=== PATIENT | male | born 1955 | race Hispanic/Latino ===

== ENCOUNTER 2017-12-14 23:02 | Emergency (ER) | payer OTHER, SELFPAY ==
[2017-12-14 23:12] VITALS: BP 150/91; PULSE 102; RESP 16; TEMP 37.6; O2SAT 97; BMI 36.5
--- NOTE | 2017-12-15 02:01 | ED.ALCOHOL ---
HPI - Alcohol General Chief Complaint: Toxicology Problem Stated Complaint: GOING THRUGH ALCOHOL WITHDRAWL Time Seen by Provider: 12/14/17 23:56 History of Present Illness HPI narrative: HPI 62-year-old male presents requesting assistance with alcohol detox. Patient reports that he drank 600 ML vodka daily, mastering 11 PM, reports he is going through a stressful divorce and wishes to stop drinking. Patient previously attended local and is establishing primary care. No prior seizures with withdrawal, no clinical evidence of withdraw the present time. ROS with no recent constitutional symptoms. Exam Gen: Pleasant, nontoxic-appearing, resting comfortably. Able to walk with a steady narrow-base nonantalgic gait. HEENT: NC, AT, PEERL, EOMI. Resp: Unlabored respirations with a normal work of breathing. Card: Extremities well perfused. GI: Non-distended. : Deferred MSK: No visible deformities, strength and tone without visually appreciable deficit. Neuro: AO x 3, no facial asymmetry, vision and hearing WNL. Heme/Lymph: Deferred Skin: Normal color with no visible lesions (other than noted above). Psych: Mood and affect appropriate. MDM Previous chart, nursing note, and vitals reviewed. A: 62-year-old male presents requesting assistance with alcohol detox. Patient reports that he drank 600 ML vodka daily, mastering 11 PM, reports he is going through a stressful divorce and wishes to stop drinking. DDx & Evaluation: patient without clinical findings suggestive of comparing alcohol intoxication, low risk history with respect to prior withdraws, vital signs within acceptable limits, patient prescribed gabapentin for treatment of withdrawal symptoms, provided with outpatient follow-up resources. Return to care precautions provided. Impression: alcohol intoxication (please reference below for remainder of encounter information) Related Data Home Medications Medication Instructions Recorded Confirmed alprazolam [Xanax] #0 04/10/17 duloxetine [Cymbalta] #0 04/10/17 omeprazole #0 04/10/17 tamsulosin [Flomax] #0 04/10/17 testosterone cypionate #0 04/10/17 [Depo-Testosterone] Previous Rx's Medication Instructions Recorded gabapentin 400 mg PO TID #20 cap 12/15/17 Allergies Allergy/AdvReac Type Severity Reaction Status Date / Time hydrochlorothiazide Allergy Unknown Verified 12/14/17 23:18 [HYDROCHLOROTHIAZIDE] lisinopril [LISINOPRIL] Allergy Unknown Verified 12/14/17 23:18 PFS Social History Smoking Status: Never smoker Exam Initial Vital Signs Initial Vital Signs: Vital Signs Temperature 99.6 F 12/14/17 23:12 Pulse Rate 102 H 12/14/17 23:12 Respiratory Rate 16 12/14/17 23:12 Blood Pressure 150/91 H 12/14/17 23:12 Pulse Oximetry 97 12/14/17 23:12 Course Orders Ordered: Discontinued Medications Gabapentin (Neurontin) 400 mg PO NOW ONE Stop: 12/15/17 00:16 Last Admin: 12/15/17 01:58 Dose: Not Given Vital Signs - 8 hr 12/14/17 23:12 Temperature 99.6 F Pulse Rate 102 H Respiratory Rate 16 Blood Pressure 150/91 H Pulse Oximetry 97 Discharge Plan Departure Patient Disposition: Home, Self-Care Clinical Impression: Alcoholic intoxication Discharge Date/Time: 12/15/17 02:01 Interventions: ED Discharge Assessment Last Done: 12/15/17 01:58 Activity Restrictions/Additional Instructions: You were in seen in the [facility] Emergency Department for alcohol withdrawal treatment. You have been prescribed gabapentin to help with your alcohol withdrawal. Please follow up immediately with both a primary care physician (see below) and AA. You may also call Health system for further assistance with alcohol dependency and withdrawal. Please read and follow all of the instructions below. [address] [phone] Please follow up with your primary care physician immediately. If you have any new symptoms or if you are at all concerned about your health please return immediately to the emergency department. If you do not have a primary care physician, please contact [facility] at [phone], [facility] at [phone], or [facility] at [phone] to arrange follow up care. If you have health insurance, please also contact your insurer for a list of accepting providers under your policy, you may contact these providers for further health care. Your care today was limited to identifying and treating emergent medical problems only. Many people have subtle differences in their test results that require follow up with their outpatient physician(s) to correctly determine if this represents a normal variation or concerning abnormality with respect to your specific health. The care given to you today was limited to identifying and treating emergent medical problems - you need to request a copy of all of your medical records from today's visit and follow up with your outpatient physician(s) to review both today's visit and your overall health. Alcohol Withdrawal Alcohol withdrawal is a condition that happens when a person who often drinks large amounts of alcohol suddenly stops drinking alcohol. People with alcohol withdrawal often have a headache, a stomach ache, and trouble sleeping. But sometimes, the symptoms are much more serious and even life threatening. Mild to moderate withdrawal can be treated at home. You are being treated for alcohol withdrawal * Call your primary care physician tomorrow to schedule a follow up appointment in 3-4 days. * Do not drink any further alcohol. * Call [facility] [employer] to obtain a sponsor and to start attending meetings. * Take gabapentin as prescribed to help reduce withdrawal symptoms (400 mg three times a day for days 1 through 4, then 400 mg two times a day for days 5-8). * Return immediately to the emergency room if you have hallucinations, fevers, sweating, a racing heart, confusion, increasing tremors, anxiety, chest pain, seizures or are otherwise concerned about your health. * Please read the below information regarding alcohol withdrawal and regarding Gabapentin. Symptoms of Alcohol Withdrawal * Mild symptoms include: trouble sleeping, trembling, feeling anxious, having an upset stomach and not wanting to eat, headache, sweating, feeling like your heart is beating fast, beating hard, or seems to skip a beat (these heartbeat changes are called palpitations). These symptoms often start within 6 hours after a person stops drinking. They might go away within 1 or 2 days. * Some people also get more serious symptoms, including:, Seizures (these can make a person pass out, or move or behave strangely. With alcohol withdrawal, seizures usually happen within 12 to 48 hours after the person stops drinking) and hallucinations. * Delirium tremens or DT, this is the most serious form of alcohol withdrawal. Symptoms include: hallucinations, feeling confused about where you are or who you are, feeling very upset and anxious, uncontrolled shaking, a fast heartbeat, high blood pressure, fever, and sweating. These symptoms start 2 to 4 days after a person stops drinking and can last up to 5 days. Gabapentin - How To Use * Read the Medication Guide provided by your pharmacist before you start taking gabapentin and each time you get a refill. If you have any questions, ask your doctor or pharmacist. * Swallow this medication whole. Do not crush or chew sustained-release tablets. Doing so can release all of the drug at once, increasing the risk of side effects. Also, do not split sustained-release tablets unless they have a score line and your doctor or pharmacist tells you to do so. Swallow the whole or split tablet without crushing or chewing. * Antacids containing aluminum or magnesium may interfere with the absorption of this medication. Therefore, if you are also taking an antacid, it is best to take gabapentin at least 2 hours after taking the antacid. Gabapentin Side Effects * Drowsiness, loss of coordination, and dizziness may occur. If any of these effects persist or worsen, tell your doctor or pharmacist promptly. * Tell your doctor right away if you have any serious side effects, including: swelling of the hands/ankles/feet. * A small number of people who take anticonvulsants for any condition (such as seizures, bipolar disorder, pain) may experience depression, suicidal thoughts/attempts, or other mental/mood problems. Tell your doctor right away if you or your family/caregiver notice any unusual/sudden changes in your mood, thoughts, or behavior including signs of depression, suicidal thoughts/attempts, thoughts about harming yourself. * Get medical help right away if you have any serious side effects, including: unusual fever, swollen glands, yellowing skin/eyes, unusual tiredness, dark urine, change in the amount of urine, chest pain. * A very serious allergic reaction to this drug is rare. However, get medical help right away if you notice any symptoms of a serious allergic reaction, including: rash, itching/swelling (especially of the face/tongue/throat), severe dizziness, trouble breathing. * This is not a complete list of possible side effects. If you notice other effects not listed above, contact your doctor or pharmacist. Gabapentin Precautions * Before taking gabapentin, tell your doctor or pharmacist if you are allergic to it; or to gabapentin enacarbil; or if you have any other allergies. This product may contain inactive ingredients, which can cause allergic reactions or other problems. Talk to your pharmacist for more details. * Before using this medication, tell your doctor or pharmacist your medical history, especially of: kidney disease, mental/mood problems (such as depression, thoughts of suicide), use/abuse of drugs/alcohol. * This drug may make you dizzy or drowsy. Do not drive, use machinery, or do any activity that requires alertness until you are sure you can perform such activities safely. Limit alcoholic beverages. * Before having surgery, tell your doctor or dentist about all the products you use (including prescription drugs, nonprescription drugs, and herbal products). * Older adults may be more sensitive to the side effects of this drug, especially swelling of the hands/ankles/feet, dizziness, or loss of coordination. Dizziness and loss of coordination can increase the risk of falling. Gabapentin Drug Interactions * Tell your doctor or pharmacist if you are taking other products that cause drowsiness including alcohol, antihistamines (such as cetirizine, diphenhydramine), drugs for sleep or anxiety (such as alprazolam, diazepam, zolpidem), muscle relaxants, and narcotic pain relievers (such as codeine, morphine). * Check the labels on all your medicines (such as allergy or [id number] products) because they may contain ingredients that cause drowsiness. Ask your pharmacist about using those products safely. * Do not use this medication with other medications that contain gabapentin (including gabapentin enacarbil). * This medication may interfere with certain laboratory tests for urine protein. Make sure laboratory personnel and all your doctors know you use this drug. Prescriptions: New gabapentin 400 mg capsule 400 mg PO TID Qty: 20 RF: 0 No Action omeprazole 40 MG capsule,delayed release(DR/EC) Qty: 0 RF: 0 alprazolam [Xanax] 0.5 MG tablet Qty: 0 RF: 0 testosterone cypionate [Depo-Testosterone] 100 MG/1 ML oil Qty: 0 RF: 0 tamsulosin [Flomax] 0.4 MG capsule,extended release 24hr Qty: 0 RF: 0 duloxetine [Cymbalta] 20 MG capsule,delayed release(DR/EC) Qty: 0 RF: 0
== END 2017-12-15 02:01 | disposition home or self-care (01) ==
PROVIDERS: Emergency Provider Emergency Medicine; PCP Internal Medicine
DX: F10.929 Alcohol use, unspecified with intoxication, unspecified (principal)
CPT/HCPCS: 99282

== ENCOUNTER 2018-02-28 21:21 | Emergency (ER) | payer OTHER, SELFPAY ==
--- NOTE | 2018-02-28 21:30 | ED.SKABFB ---
HPI - Skin/Abscess/Foreign Bdy General Chief complaint: Wound/Laceration Stated complaint: Dog bite Thursday now infected Time Seen by Provider: 02/28/18 21:22 Source: patient Mode of arrival: EMS Limitations: no limitations History of Present Illness HPI narrative: 62-year-old male brought in by EMS for evaluation of wounds to bilateral hands. He called EMS because he thought that the wounds were becoming infected. He states that on Thursday he was intoxicated and thought that he was bit by his dog. He is unsure if this was exactly what happened but he is fairly sure this was the mechanism. Did not come in for evaluation. Thinks that over the past couple days the wound on the back of his left hand has become more swollen and more red. He states that he is a ?alcoholic? states that his last drink was just prior to arrival here in the emergency department. No interventions to his hand wounds prior to arrival. Related Data Home Medications Medication Instructions Recorded Confirmed alprazolam [Xanax] #0 04/10/17 duloxetine [Cymbalta] #0 04/10/17 omeprazole #0 04/10/17 tamsulosin [Flomax] #0 04/10/17 testosterone cypionate #0 04/10/17 [Depo-Testosterone] Previous Rx's Medication Instructions Recorded gabapentin 400 mg PO TID #20 cap 12/15/17 amoxicillin-pot clavulanate 1 tab PO Q12H 10 Days #20 tab 02/28/18 Allergies Allergy/AdvReac Type Severity Reaction Status Date / Time hydrochlorothiazide Allergy Unknown Verified 02/28/18 21:39 [HYDROCHLOROTHIAZIDE] lisinopril [LISINOPRIL] Allergy Unknown Verified 02/28/18 21:39 Review of Systems Constitutional Denies chills and Denies fever(s) Cardiovascular Denies chest pain and Denies dyspnea Respiratory Denies dyspnea Gastrointestinal Gastrointestinal: Denies abdominal pain Musculoskeletal Denies myalgias and Denies arthralgias Comments: No wrist pain or finger joint pain bilateral hands Integumentary/Breasts Comments: Cut to the back of his left hand. Puncture wounds to the back of his right hand Neurologic Comments: No numbness or tingling bilateral hands Hematologic/Lymphatic Denies easy bleeding and Denies easy bruising [facility] Medical History Alcoholism (Acute) Surgical History History of fasciotomy (Acute) Social History Smoking Status: Never smoker Exam Initial Vital Signs Initial Vital Signs: Vital Signs Temperature 98.8 F 02/28/18 21:33 Pulse Rate 78 02/28/18 21:33 Respiratory Rate 18 02/28/18 21:33 Blood Pressure 149/78 H 02/28/18 21:33 Pulse Oximetry 97 02/28/18 21:33 Const General: cooperative, healthy appearing, comfortable, well developed, well groomed and No acute distress Orientation: alert, awake and oriented x3 HENMT Head: normal to inspection and normocephalic Resp Effort & Inspection: normal respiratory effort Auscultation: clear to auscultation bilaterally Cardio Rate: regular rate Rhythm: regular rhythm Pulses: radial pulses present GI Inspection: non-distended Palpation: soft, No firm and No tender Skin Other: Patient with a 5 cm skin abrasion on the dorsum of his left hand. No active bleeding. Minimal surrounding redness. Does have swelling to the back of the left hand Patient with 2 puncture wounds to the back of his right hand. No active bleeding. No redness. Does have swelling to the back of the right hand. Neuro General: alert, awake and oriented x3 Cognition: normal cognition Speech: speech normal Gait: normal gait Extrem Other: No gross deformities. See skin section for description of skin wounds. Full range of motion of all major joints bilateral upper extremities without pain Psych Appearance: grossly normal and well kempt Course Orders Ordered: ED Orders 02/28/18 21:31 XR hand LT 2V Stat XR hand RT 2V Stat Discontinued Medications Amoxicillin/Clavulanate Potassium (Augmentin 875-125 Mg) 1 tab PO NOW ONE Stop: 02/28/18 22:54 Diphtheria/Tetanus/Acell Pertussis (Adacel) 0.5 ml IM .ONCE ONE Stop: 02/28/18 21:32 Last Admin: 02/28/18 21:42 Dose: 0.5 ml Vital Signs - 8 hr 02/28/18 21:33 02/28/18 22:28 Temperature 98.8 F 98.8 F Pulse Rate 78 78 Respiratory Rate 18 18 Blood Pressure 149/78 H 149/78 H Pulse Oximetry 97 97 MDM - Skin/Abscess/Foreign Bdy Lab Data Point of Care Testing Breathalizer 0.208 Imaging Data Hand x-rays: Radiologist's impression: Right hand x-ray: No gross deformities, no fractures, no foreign body Left hand x-ray: No gross deformities, no fractures, no foreign body MDM Narrative Medical decision making narrative: No foreign bodies noted on the x-rays. No fractures. Patient's tetanus was updated. The abrasion on the back of his left hand is greater than 24 hr out from the event. Will hold on any suturing. Will start the patient on Augmentin. His 1st dose was given here in the emergency department. I do not feel that admission to the hospital for IV antibiotics is warranted secondary to his physical exam currently. Patient does admit to being an alcoholic. His last drink was just prior to arrival here in the emergency department this evening. After discussion with the patient here in the emergency department regarding his alcohol use I did offer him help with this this evening. His Breathalyzer was elevated. Informed him that in order for him to be transferred to the crisis detox center his alcohol level would have to be lower. I offered to have him stay here in the emergency department and recheck his alcohol level until he reaches their criteria and then transport him to the crisis detox center. The patient states that he does not want to stay here in the emergency department. I did offer him Librium which he declined. We did give him resources to include local detox facilities and also other help for alcohol use. The patient ambulated in the emergency department without any problems. He was alert and oriented x3. He did seem to have appropriate thought. In my opinion had the capacity to make decisions despite his elevated alcohol level. He was not combative. Extremely reasonable regarding his alcohol use. Will discharge the patient home with a prescription for antibiotics. Discharge Plan Departure Patient Disposition: Home Clinical Impression: Dog bite, Abrasion of skin, Alcohol intoxication Instructions: Alcohol Use Disorder, DI for Abrasion, DI for Dog Bite Activity Restrictions/Additional Instructions: Your 1st dose of antibiotics was given here in the emergency department. You do need to fill this prescriptions and start tomorrow. I recommend that you may contact the primary care doctor here in the area. Return to the emergency department for any new symptoms, worsening pain in her hands, worsening swelling or signs of worsening infection. Also highly recommend that you use the information you were given here in the emergency department to seek help for her alcohol use. You may return to the emergency department at any point for new or worsening symptoms Prescriptions: New amoxicillin-pot clavulanate 875-125 mg tablet 1 tab PO Q12H 10 Days Qty: 20 RF: 0 No Action omeprazole 40 MG capsule,delayed release(DR/EC) Qty: 0 RF: 0 alprazolam [Xanax] 0.5 MG tablet Qty: 0 RF: 0 testosterone cypionate [Depo-Testosterone] 100 MG/1 ML oil Qty: 0 RF: 0 tamsulosin [Flomax] 0.4 MG capsule,extended release 24hr Qty: 0 RF: 0 duloxetine [Cymbalta] 20 MG capsule,delayed release(DR/EC) Qty: 0 RF: 0 gabapentin 400 mg capsule 400 mg PO TID Qty: 20 RF: 0
--- NOTE | 2018-02-28 21:31 | DI.RAD.S_ITS ---
PROCEDURE: XR HAND RT 2V INDICATIONS: dog bite TECHNIQUE: 2 views of the hand(s) acquired. COMPARISON: None. FINDINGS: Bones: No fractures or dislocations. Carpal bones are normally aligned. No suspicious bony lesions. Soft tissues: There is dorsal soft tissue swelling. No unexpected radiopaque foreign bodies. IMPRESSION: Dorsal soft tissue swelling. No acute fracture dislocation or unexpected radiopaque foreign body. Dictated by: Deb Hernandez M.D. on 02/28/2018 at 22:01 Approved by: Deb Hernandez M.D. on 02/28/2018 at 22:01
--- NOTE | 2018-02-28 21:31 | DI.RAD.S_ITS ---
PROCEDURE: XR HAND LT 2V INDICATIONS: dog bite TECHNIQUE: 2 views of the hand(s) acquired. COMPARISON: None. FINDINGS: Bones: No fractures or dislocations. Carpal bones are normally aligned. No suspicious bony lesions. Soft tissues: There is soft tissue swelling over the dorsum of the hand. No unexpected radiopaque foreign bodies. IMPRESSION: Dorsal soft tissue swelling. No acute fracture dislocation or unexpected radiopaque foreign bodies. Dictated by: Deb Hernandez M.D. on 02/28/2018 at 22:00 Approved by: Deb Hernandez M.D. on 02/28/2018 at 22:01
[2018-02-28 21:33] VITALS: BP 149/78; PULSE 78; RESP 18; TEMP 37.1; O2SAT 97; BMI 38.0
[2018-02-28] MEDS: TET,DIPH,PERTUSS(ACELL),VAC/PF 0.5 ML SYRINGE IM (21:42)
[2018-02-28 22:28] VITALS: BP 149/78; PULSE 78; RESP 18; TEMP 37.1; O2SAT 97; BMI 38.0
--- NOTE | 2018-02-28 22:32 | PC.NURSE ---
Pt has wound to left hand approx 3 cm and multiple small punctures to right hand states he was drinking and passed out on 02/26/18 and may have been bitten by his dog. Both hands appear swollen, warm, and cms intact.
[2018-02-28] MEDS: AMOXICILLIN/CLAV 875/125 MG 1 TAB PO (23:01)
[2018-02-28 23:20] VITALS: BP 143/91; PULSE 85; RESP 16; O2SAT 97
--- NOTE | 2018-02-28 23:21 | PC.NURSE ---
Pt given contact info and resources for [facility].Crisis ETOH Detox upon DC.
== END 2018-02-28 23:21 | disposition home or self-care (01) ==
PROVIDERS: Emergency Provider Emergency Medicine; PCP Internal Medicine
DX: S60.512A Abrasion of left hand, initial encounter (principal); W54.0XXA Bitten by dog, initial encounter
CPT/HCPCS: 73120; 82075; 90471; 99283; 99284; 90715

== ENCOUNTER 2018-03-05 18:15 | Emergency (ER) | payer OTHER, SELFPAY ==
[2018-03-05 18:21] VITALS: BP 152/90; PULSE 81; RESP 18; TEMP 37.3; O2SAT 96
--- NOTE | 2018-03-05 19:05 | ED_ITS ---
HPI - Extremity Problem General Chief complaint: Extremity Problem,Nontraumatic Stated complaint: LEFT HAND INFECTION NOT BETTER Time Seen by Provider: 03/05/18 18:52 Source: patient and old records reviewed Mode of arrival: ambulatory Limitations: no limitations History of Present Illness HPI Narrative: Patient is a 62-year-old presents with left hand cellulitis. He was bit by his dog 5 days ago he seen and evaluated here at that time. He was started on Augmentin but thinks that he did not pick it up until 2 days later. He has now been on Augmentin for at least 3 full days he feels like the redness around it has gotten worse. He has no significant swelling no numbness or tingling. He denies any fever or chills of he does have low-grade fever here. There is no significant streaking up his arm. He is also an alcoholic. When he was here last time Dr. emmanuel offer him Librium. He is looking to go into rehab but does not yet have to bed at this time. He did drink 500 mL of vodka today already. No history of seizures or alcohol withdrawal. He has been to detox multiple times. Related Data Home Medications Medication Instructions Recorded Confirmed alprazolam [Xanax] #0 04/10/17 duloxetine [Cymbalta] #0 04/10/17 omeprazole #0 04/10/17 tamsulosin [Flomax] #0 04/10/17 testosterone cypionate #0 04/10/17 [Depo-Testosterone] Previous Rx's Medication Instructions Recorded gabapentin 400 mg PO TID #20 cap 12/15/17 amoxicillin-pot clavulanate 1 tab PO Q12H 10 Days #20 tab 02/28/18 Allergies Allergy/AdvReac Type Severity Reaction Status Date / Time hydrochlorothiazide Allergy Unknown Verified 02/28/18 21:39 [HYDROCHLOROTHIAZIDE] lisinopril [LISINOPRIL] Allergy Unknown Verified 02/28/18 21:39 Review of Systems Review of Systems All systems reviewed & are unremarkable except as noted in HPI and below Constitutional Denies chills, Denies fever(s), Denies lethargy and Denies weakness Cardiovascular Denies chest pain, Denies irregular heart rhythm, Denies lightheadedness, Denies palpitations, Denies dyspnea, Denies dyspnea on exertion and Denies orthopnea Respiratory Denies cough, Denies dyspnea, Denies dyspnea on exertion and Denies wheezing Musculoskeletal Denies back pain, Denies muscle weakness, Denies numbness and Denies tingling Integumentary/Breasts Reports as per HPI Neurologic Denies numbness, Denies tingling and Denies weakness Endocrine Denies palpitations Allergic/Immunologic Denies wheezing [facility] Medical History Alcoholism (Acute) Surgical History 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 (Acute) History of fasciotomy (Acute) Social History Smoking Status: Never smoker Exam Initial Vital Signs Initial Vital Signs: Vital Signs Temperature 99.2 F 03/05/18 18:21 Pulse Rate 81 03/05/18 18:21 Respiratory Rate 18 03/05/18 18:21 Blood Pressure 152/90 H 03/05/18 18:21 Pulse Oximetry 96 03/05/18 18:21 GENERAL: Well-appearing, well-nourished and in no acute distress. HEENT: Head atraumatic,EOMI, pupils reactive, face symmetric, CARDIOVASCULAR: Regular rate and rhythm without murmurs, rubs or gallops. RESPIRATORY: Breath sounds equal bilaterally, no wheezes rales or rhonchi. ABDOMEN: Soft, nontender. Normoactive bowel sounds all 4 quadrants. No guarding or rebound. EXTREMITIES: Normal range of motion, no clubbing or edema. Neurovascularly intact NEUROLOGICAL: Alert and oriented x4.Normal gait and speech. SKIN: Warm, dry, no laceration, no petechiae, no rashes or lesions. Left dorsal hand 5 cm scabbed over his lesion. He has a 6 cm x 7 cm of surrounding erythema without induration. Erythema is very localized. Is able to flex and extend all fingers no significant swelling there is no streaking up the arm. Neurovascularly intact. Course Orders Ordered: ED Orders 03/05/18 19:39 Blood Culture Stat Discontinued Medications Ampicillin Sodium/Sulbactam (Sodium 3 gm/ Sodium Chloride) 100 mls @ 100 mls/ hr IV NOW ONE Stop: 03/05/18 19:02 Last Infusion: 03/05/18 21:05 Dose: 0 mls/hr Admin: 03/05/18 19:46 Dose: 100 mls/hr Vital Signs - 8 hr 03/05/18 21:05 Pulse Rate 86 Respiratory Rate 15 Blood Pressure 160/74 H Pulse Oximetry 96 MDM - Extremity (Nontraumatic) Lab Data Attestation: I reviewed the patient's lab results. Result diagrams: 03/05/18 19:30 03/05/18 19:30 Lab Results 03/05/18 03/05/18 03/05/18 Range/Units 19:30 19:30 19:30 WBC 3.5 L (4.5-11.0) X10^3/uL RBC 4.29 L (4.5-5.9) X10^6/uL Hgb 14.0 (13.5-17.5) g/dL Hct 41.7 (41-53) % MCV 97.2 (80-100) fL MCH 32.7 (26-34) PG MCHC 33.6 (30-36) % RDW 18.4 H (11.6-14.8) % Plt Count 151 (150-400) X10^3/uL Neut % (Auto) 53.6 (50-75) % Lymph % (Auto) 32.9 (25-40) % [place] % (Auto) 12.1 (3-14) % Eos % (Auto) 0.8 L (2-4) % Baso % (Auto) 0.6 (0-2) % Neut # (Auto) 1900 L (9124-0372) /uL Sodium 141 (137-145) mmol/L Potassium 3.9 (3.4-5.1) mmol/L Chloride 105 (98-107) mmol/L Carbon Dioxide 23 (22-32) mmol/L BUN 12 (9-20) mg/dL Creatinine 0.70 (0.66-1.25) mg/dL Estimated GFR > 60.0 (>60) mL/min BUN/Creatinine Ratio 17.1 (6-22) Glucose 93 (80-110) mg/dL Lactate 1.9 (0.7-2.1) mmol/L Calcium 8.6 (8.4-10.2) mg/dL [facility] Narrative Medical decision making narrative: Lab work actually looks pretty stable. He has no significant swelling able to move all fingers. Patient is wanting to go home with his dog. Discharge Plan Departure Patient Disposition: Home Clinical Impression: Cellulitis of hand, left Discharge Date/Time: 03/05/18 21:08 Interventions: ED Discharge Assessment Last Done: 03/05/18 21:05 Instructions: Cellulitis Activity Restrictions/Additional Instructions: *You have been diagnosed with left hand cellulitis *What to do: Monitor the redness and swelling likely just need a longer time on antibiotics When you have a bed at detox he will require medical clearance typically patients come to the emergency department for medical clearance or their primary care provider. Recommend calling multiple times a day until a bed is available. *Continue to take medications as directed -finished Augmentin as previously prescribed *Follow up with your primary care provider in 2-3 days *Return to ER if you should have increased swelling, redness, finger pain, streaking or any new, worsening or concerning symptoms Prescriptions: No Action omeprazole 40 MG capsule,delayed release(DR/EC) Qty: 0 RF: 0 alprazolam [Xanax] 0.5 MG tablet Qty: 0 RF: 0 testosterone cypionate [Depo-Testosterone] 100 MG/1 ML oil Qty: 0 RF: 0 tamsulosin [Flomax] 0.4 MG capsule,extended release 24hr Qty: 0 RF: 0 duloxetine [Cymbalta] 20 MG capsule,delayed release(DR/EC) Qty: 0 RF: 0 gabapentin 400 mg capsule 400 mg PO TID Qty: 20 RF: 0 amoxicillin-pot clavulanate 875-125 mg tablet 1 tab PO Q12H 10 Days Qty: 20 RF: 0 Referrals: Oh Hall [Primary Care Provider] -
[2018-03-05 19:38] LABS: Add Manual Diff / Slide Review NO; Basophils Percent Auto 0.6 % (0-2); Eosinophils Percent Auto 0.8 % (2-4); Hematocrit 41.7 % (41-53); Lymphocytes Percent Auto 32.9 % (25-40); Mean Corpuscular HGB Conc 33.6 % (30-36); Mean Corpuscular Hemoglobin 32.7 PG (26-34); Mean Corpuscular Volume 97.2 fL (80-100); Monocytes Percent Auto 12.1 % (3-14); Neutrophils Absolute Auto 1900 /uL (3000-5900); Neutrophils Percent Auto 53.6 % (50-75); Platelet Count 151 X10^3/uL (150-400); Red Blood Cell Count 4.29 X10^6/uL (4.5-5.9); Red Cell Distribution Width 18.4 % (11.6-14.8); White Blood Cell Count 3.5 X10^3/uL (4.5-11.0)
[2018-03-05] MEDS: AMPICILLIN/SULBACTAM 3 GM 3 GM in SODIUM CHLORIDE 0.9% 100 ML IV (19:46)
[2018-03-05 20:03] LABS: BUN Creatinine Ratio 17.1 (6-22); Blood Urea Nitrogen 12 mg/dL (9-20); Calcium 8.6 mg/dL (8.4-10.2); Carbon Dioxide 23 mmol/L (22-32); Chloride 105 mmol/L (98-107); Estimated Glomerular Filt Rate > 60.0 mL/min (>60); Glucose 93 mg/dL (80-110); HEMOLYSIS 20 (0-50); Lactate (Lactic Acid) 1.9 mmol/L (0.7-2.1); Potassium 3.9 mmol/L (3.4-5.1); Sodium 141 mmol/L (137-145)
[2018-03-05 21:05] VITALS: BP 160/74; PULSE 86; RESP 15; O2SAT 96
== END 2018-03-05 21:08 | disposition home or self-care (01) ==
PROVIDERS: Emergency Provider Emergency Medicine; PCP Internal Medicine
DX: L03.114 Cellulitis of left upper limb (principal)
CPT/HCPCS: 36415; 36591; 80048; 83605; 85025; 87040; 96365; 99283; 99284; J0295

== ENCOUNTER → 2018-05-28 10:31 | Outpatient (CLI) | payer MEDICARE, OTHER, SELFPAY ==
--- NOTE | 2018-05-28 10:35 | DI.RAD.S_ITS ---
PROCEDURE: XR CHEST 2V INDICATIONS: COUGH TECHNIQUE: 2 views of the chest were acquired. COMPARISON: [facility], , CHEST 1 VIEW, 04/10/2017, 18:49. FINDINGS: Surgical changes and devices: None. Lungs and pleura: No pleural effusions or pneumothorax. Lungs are clear. Mediastinum: Mediastinal contours are normal. Heart size is normal. Bones and chest wall: No suspicious bony abnormalities. Soft tissues appear unremarkable. Healed left seventh posterior lateral rib fracture redemonstrated. IMPRESSION: No acute cardiopulmonary disease. Dictated by: Papo Sims [facility] Interpreted: Marcus Liriano MD on 05/28/2018 at 10:52 Approved by: Marcus Liriano M.D. on 05/28/2018 at 11:09
== END ==
PROVIDERS: PCP Internal Medicine; Visit Provider Student in an Organized Health Care Education/Training Program
DX: R05 Cough (principal)
CPT/HCPCS: 71046

== ENCOUNTER → 2018-06-30 11:10 | Outpatient (CLI) | payer MEDICARE, OTHER, SELFPAY ==
--- NOTE | 2018-06-30 | DI.US.S_ITS ---
PROCEDURE: US ABD AORTA ANEURYSM SCREEN INDICATIONS: ABDOMINAL AORTIC ANEURISM SCREENING TECHNIQUE: Real time scanning was performed of the aorta and iliac arteries, with image documentation. COMPARISON: None. FINDINGS: Aorta: Proximal aortic diameter measures 2.6 cm. Mid-aorta measures 2.3 cm. Distal aortic diameter is 2.2 cm. Iliac arteries: Right common iliac artery measures 1.7 cm. Left common iliac artery measures 1.7 cm. IMPRESSION: Negative for aneurysm. Dictated by: Filiberto Adams M.D. on 06/30/2018 at 11:49 Approved by: Filiberto Adams M.D. on 06/30/2018 at 11:49
== END ==
PROVIDERS: PCP Internal Medicine; Visit Provider Student in an Organized Health Care Education/Training Program
DX: Z13.6 Encounter for screening for cardiovascular disorders (principal)
CPT/HCPCS: 76706

== ENCOUNTER 2018-07-13 08:31 | Day surgery (SDC) | payer MEDICARE, OTHER, SELFPAY ==
[2018-07-13 08:53] VITALS: BP 150/81; PULSE 78; RESP 16; TEMP 36.2; O2SAT 98; BMI 36.5
[2018-07-13] MEDS: PROPARACAINE 0.5% OPHTH SOL 2 DROPS EYE-OP (09:03)
[2018-07-13] MEDS: CATARACT EYE COMPOUND (10 DROPS/SYRINGE) 3 DROPS EYE-OP (09:05)
--- NOTE | 2018-07-13 09:13 | SUR.PREOP ---
Pt. comes into pre-op for right eye cataract, noted left eye lower lid with redness and swelling, pt. describes lower lid as slight burning sensation, pt. noted the right lower lid a few days ago.
--- NOTE | 2018-07-13 10:08 | P.OP_ITS ---
Operative Date/Time/Diagnoses Pre-op diagnosis: Nuclear cataract right eye Procedure & Clinicians Procedure: Cataract Surgery Same procedure as scheduled: Yes Surgeon: Adama Sharma Anesthesia Type: MAC +/- and Sedation Operative Notes Procedure in detail: Patient brought to the operating suite. Tetracaine drops placed in the right eye. Patient was prepped and draped in sterile manner. Wire lid speculum was placed in the eye. Betadine drops were placed on the eye. This was irrigated. Lidocaine jelly was placed on the eye. A paracentesis port was created with a side-port blade. 0.1 mL 1% preservative free lidocaine was injected into the anterior chamber. The anterior chamber was deepened with viscoelastic. 2.6 mm keratome was used to create a temporal clear corneal incision. Cystotome and Utrata forceps were used to create continuous tear capsulorrhexis. Balanced salt solution was used to hydro dissect the nucleus. The phacoemulsification handpiece was inserted and the nucleus was removed using the stop and chop technique. The irrigation aspiration handpiece was inserted and the remaining cortex was removed. Anterior chamber was deepened with viscoelastic. An Bourne ZCB00 intraocular lens with a power of 21.5 was injected into the capsular bag. Irrigation aspiration handpiece was inserted and the remaining viscoelastic was removed. Incision was hydrated with balanced salt solution and found to be leak free with pressure with Weck- Ramona sponges. 0.1 mL Vigamox injected anterior chamber. 0.3 mL Kenalog 10 mg was injected subconjunctivally. Lid speculum was removed. The patient left the operating room in excellent condition. Complications: none Condition: stable Disposition: same day surgery
--- NOTE | 2018-07-13 10:08 | PM.PREOP ---
Pre-operative Note Interval Note History & Physical reviewed/Exam performed by Physician: No Changes to H&P: No
--- NOTE | 2018-07-13 10:16 | SUR.OPER ---
Supine on eye stretcher, head on extension cradle secured with tape. Arms tucked at sides with blanket. Pillow under knees.
[2018-07-13] MEDS: PHENYLEPHRINE/LIDOCAINE VIAL (OR) 0.2 ML EYE-OP (10:18)
[2018-07-13] MEDS: TRIAMCINOLONE 50 MG/5 ML VIAL INJ (10:19)
[2018-07-13] MEDS: MOXIFLOXACIN OPHTH DROPS 3 ML BOTTLE 2 DROPS INJ (10:19)
[2018-07-13] MEDS: LIDOCAINE JELLY 2% 5 ML 1 APPLIC TOP (10:20)
[2018-07-13] MEDS: CHONDROIDTIN/SOD HYALURONATE 1.05 ML SYRINGE INTRAOCULA (10:20)
[2018-07-13] MEDS: BALANCED SALT IRRIG SOLN NO.2 500 ML, EPINEPHrine 1 MG IRR (10:21)
[2018-07-13] MEDS: TETRACAINE 0.5% OPHTH DROPS 4 ML 2 DROPS EYE-OP (10:21)
[2018-07-13 10:51] VITALS: BP 131/76; PULSE 63; RESP 16; TEMP 36.2; O2SAT 95
== END 2018-07-13 10:45 ==
LOC: OR 08:34
PROVIDERS: PCP Internal Medicine; Visit Provider Ophthalmology
DX: H25.11 Age-related nuclear cataract, right eye (principal); F41.9 Anxiety disorder, unspecified
CPT/HCPCS: J0171; J2250; J3301

== ENCOUNTER 2018-08-03 01:27 | Emergency (ER) | payer MEDICARE, OTHER, SELFPAY ==
[2018-08-03] VITALS (8 sets, daily range): BP systolic 98–132; BP diastolic 55–78; PULSE 77–100; RESP 11–27; TEMP 36.9; O2SAT 91–97; BMI 39.3
[2018-08-03] MEDS: SODIUM CHLORIDE 0.9% 1,000 ML 1000 ML IV (01:44)
[2018-08-03 01:51] LABS: Add Manual Diff / Slide Review YES; Hematocrit 38.2 % (41-53); Hemoglobin 12.9 g/dL (13.5-17.5); Mean Corpuscular HGB Conc 33.9 % (30-36); Mean Corpuscular Hemoglobin 33.6 PG (26-34); Mean Corpuscular Volume 99.2 fL (80-100); Platelet Count 113 X10^3/uL (150-400); Red Blood Cell Count 3.85 X10^6/uL (4.5-5.9); Red Cell Distribution Width 16.4 % (11.6-14.8); White Blood Cell Count 2.7 X10^3/uL (4.5-11.0)
[2018-08-03 01:53] LABS: Creatine Kinase 70 U/L (55-170)
[2018-08-03 01:54] LABS: Acetaminophen < 10 ug/mL (10-30); Alanine Aminotransferase 43 IU/L (21-72); Albumin 3.8 g/dL (3.5-5.0); Albumin Globulin Ratio 1.3 (1.0-2.8); Alkaline Phosphatase 97 U/L (38-126); Aspartate Aminotransferase 54 IU/L (17-59); BUN Creatinine Ratio 23.3 (6-22); Bilirubin Total 0.5 mg/dL (0.2-1.3); Blood Urea Nitrogen 14 mg/dL (9-20); Calcium 8.9 mg/dL (8.4-10.2); Carbon Dioxide 26 mmol/L (22-32); Chloride 102 mmol/L (98-107); Estimated Glomerular Filt Rate > 60.0 mL/min (>60); Glucose 108 mg/dL (80-110); HEMOLYSIS 19 (0-50); Sodium 143 mmol/L (137-145); Total Protein 6.8 g/dL (6.3-8.2)
[2018-08-03 01:55] LABS: Salicylate < 1.0 mg/dL (<20)
[2018-08-03 02:01] LABS: Ethanol (ETOH) 363 mg/dL
[2018-08-03 02:05] LABS: Troponin I 0.026 ng/mL (0.01-0.034)
[2018-08-03 02:22] LABS: Neutrophils Absolute Manual 594 /uL (3000-5900); Total Cells Counted 100
[2018-08-03 02:23] LABS: Anisocytosis 2+
[2018-08-03 04:02] LABS: Troponin I 0.034 ng/mL (0.01-0.034)
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
[2018-08-03 05:43] LABS: Urine Amphetamines Negative (Negative); Urine Barbiturates Negative (Negative); Urine Benzodiazepines Negative (Negative); Urine Cocaine Negative (Negative); Urine MDMA Negative (Negative); Urine Methadone Negative (Negative); Urine Methamphetamines Negative (Negative); Urine Morphine/Opi cutoff 2000 Negative (Negative); Urine Oxycodone Negative (Negative); Urine Phencyclidine Negative (Negative); Urine Tetrahydrocannabinol Negative (Negative); Urine Tricyclic Antidepressant Negative (Negative)
== END 2018-08-03 06:30 | disposition home or self-care (01) ==
PROVIDERS: Emergency Provider Emergency Medicine; PCP Internal Medicine
DX: F10.920 Alcohol use, unspecified with intoxication, uncomplicated (principal)
CPT/HCPCS: 36415; 80053; 80305; 80320; 80329; 82550; 82962; 84484; 85025; 93005; 96360; 96361; 99284; G0480

== ENCOUNTER 2018-08-13 03:32 | Emergency (ER) | payer MEDICARE, OTHER, SELFPAY ==
[2018-08-13 03:30] VITALS: BP 138/76; PULSE 81; RESP 13; TEMP 36.8; O2SAT 79
[2018-08-13] MEDS: SODIUM CHLORIDE 0.9% 1,000 ML 1000 ML IV ×2 (03:40→04:10)
[2018-08-13 03:47] VITALS: BMI 39.1
[2018-08-13 04:00] VITALS: BP 46/31; PULSE 77; RESP 16; O2SAT 95
[2018-08-13 04:26] VITALS: BP 101/53; PULSE 83; RESP 12; O2SAT 95
[2018-08-13 04:28] LABS: Hematocrit 38.9 % (41-53); Hemoglobin 13.2 g/dL (13.5-17.5); Mean Corpuscular HGB Conc 33.9 % (30-36); Mean Corpuscular Hemoglobin 34.4 PG (26-34); Mean Corpuscular Volume 101.4 fL (80-100); Platelet Count 107 X10^3/uL (150-400); Red Blood Cell Count 3.84 X10^6/uL (4.5-5.9); Red Cell Distribution Width 15.9 % (11.6-14.8); White Blood Cell Count 4.5 X10^3/uL (4.5-11.0)
--- NOTE | 2018-08-13 04:30 | DI.RAD.S_ITS ---
PROCEDURE: XR ELBOW RT MIN 3V INDICATIONS: fall with laceration TECHNIQUE: 3 views of the elbow were acquired. COMPARISON: None. FINDINGS: Bones: No fractures or dislocations. Mild cortical irregularly in the area of lateral humeral epicondyle may be secondary to old injury. No suspicious bony lesions. There are both spurs in the medial epicondyle and posterior to olecranon. Soft tissues: No elbow joint effusion. No suspicious soft tissue calcifications. Soft tissue edema and subcutaneous gas posterior to the elbow. IMPRESSION: 1. No definitive fracture or dislocation. If clinical symptoms persist or clinical suspicion for pathology is high, a repeat examination in 7-10 days, or advanced imaging such as CT or MRI is suggested for further evaluation. 2. Soft tissue edema and subcutaneous gas posterior to elbow. No significant discrepancy with the ER preliminary report. Dictated by: Yury Barros M.D. on 08/13/2018 at 8:36 Approved by: Yury Barros M.D. on 08/13/2018 at 8:39
--- NOTE | 2018-08-13 04:30 | ED_ITS ---
HPI - Extremity Injury (Upper) General Chief Complaint: Extremity Injury, Upper Stated Complaint: Arm Lac Time Seen by Provider: 08/13/18 04:30 Source: patient and EMS Mode of arrival: EMS Limitations: no limitations History of Present Illness HPI narrative: 63-year-old male brought in by EMS after he admitted being drunk. He stated that he fell in his kitchen. EMS reports a large laceration to his right elbow they were having problems controlling the bleeding on. They estimated at least 500 cc of blood loss. They did have it covered with multiple bandages. Patient reports no other injuries. He stated he did not hit his head. There was no loss of consciousness. Related Data Home Medications Medication Instructions Recorded Confirmed alprazolam [Xanax] #0 04/10/17 duloxetine [Cymbalta] 20 mg #0 04/10/17 omeprazole 40 mg #0 04/10/17 tamsulosin [Flomax] #0 04/10/17 testosterone cypionate #0 04/10/17 [Depo-Testosterone] Previous Rx's Medication Instructions Recorded gabapentin 400 mg PO TID #20 cap 12/15/17 cephalexin [Keflex] 500 mg PO BID 7 Days #14 cap 08/13/18 Allergies Allergy/AdvReac Type Severity Reaction Status Date / Time hydrochlorothiazide Allergy Severe Anaphylaxis Verified 07/13/18 08:50 [HYDROCHLOROTHIAZIDE] lisinopril [LISINOPRIL] Allergy Severe Anaphylaxis Verified 07/13/18 08:50 Review of Systems Constitutional Denies headache(s) Eyes Denies blurry vision and Denies diplopia ENT Ears, Nose, Mouth, and Throat: Denies vertigo, Denies headache(s) and Reports disequilibrium Cardiovascular Denies chest pain and Denies dyspnea Respiratory Denies dyspnea Gastrointestinal Gastrointestinal: Denies abdominal pain, Denies nausea and Denies vomiting Genitourinary Denies genital pain Musculoskeletal Denies myalgias, Denies arthralgias and Denies tingling Comments: No right elbow joint pain just the skin over the right elbow Integumentary/Breasts Comments: Large laceration to the right elbow Neurologic Denies confusion, Denies vertigo, Denies headache(s), Denies focal weakness, Denies tingling, Denies paresthesias and Reports disequilibrium Psychiatric Denies confusion Hematologic/Lymphatic Comments: Not on blood thinners Allergic/Immunologic Denies urticaria PFSH Social History household members: none Smoking Status: Never smoker alcohol intake: current Exam Initial Vital Signs Initial Vital Signs: Vital Signs Temperature 98.2 F 08/13/18 03:30 Pulse Rate 81 08/13/18 03:30 Respiratory Rate 13 08/13/18 03:30 Blood Pressure 138/76 08/13/18 03:30 Pulse Oximetry 79 L 08/13/18 03:30 Const General: cooperative, well developed, well groomed and No acute distress Nutritional Appearance: obese Orientation: alert, awake and oriented x3 HENMT Head: normal to inspection and normocephalic Nose: external nose normal Face and sinus: normal facial exam Mouth: oral mucosae normal Chest Chest: normal inspection of the chest and No crepitus Resp Effort & Inspection: normal respiratory effort Auscultation: clear to auscultation bilaterally Cardio Rate: regular rate Rhythm: regular rhythm Pulses: radial pulses present on the right GI Inspection: non-distended Palpation: soft, No firm and No tender External: normal external exam Skin Other: Patient with a 15 cm laceration to the right elbow involving the muscle layer. Is actively bleeding. Has multiple other bruising in various stages of healing located throughout his body. Does have bruising over his left flank which appears to be fairly new. He is exquisitely tender over this area. Neuro General: alert, awake and oriented x3 Cognition: normal cognition Speech: speech normal Motor: muscle tone normal throughout Sensory Exam: no sensory deficits noted Other: Patient with sensation to his right hand in the area of the ulnar radial and median nerve. Extrem Other: Right hand unremarkable. Right wrist unremarkable. Able to move in all directions. Patient able to flex and extend at the right elbow. Right shoulder is unremarkable. The rest of his extremity exam is unremarkable. Psych Appearance: grossly normal and well kempt Procedures FAST Exam FAST Exam 1: Fluid in Morison's pouch: No Fluid in Splenorenal Junction: No Fluid around bladder, Transverse view: No Fluid around bladder, Sagittal view: No Fluid in Pericardial Sac: No Gross Wall Motion Abnormality: No Study normal for this patient: Yes Images saved for further review: No Laceration Repair Laceration 1: Site: upper extremity Side (If applicable): right Size (cm): 15 Description: irregular Depth: involves muscle layer Local Anesthetic: lidocaine 1% and with epi Amount of anesthesia used (mL): 10 Pre-repair: wound explored, deep structures intact (Partial disruption of the triceps muscle.) and wound margins revised Skin layer closed with: nylon Size (cm): 3-0 Number of sutures: 20 Technique: simple, interrupted Subcutaneous layer closed with: vicryl Muscle layer closed with: vicryl Size: 3-0 Number of sutures: 2 Technique: simple, interrupted Course Orders Ordered: ED Orders 08/13/18 03:20 BNP [B Type Natriuretic Peptide] Stat CBC [Complete Blood Count AUTO DIFF] Stat 08/13/18 04:30 XR elbow RT min 3V Stat 08/13/18 04:35 Basic Metabolic Panel Stat Type and Screen Stat 08/13/18 04:59 CT abdomen pelvis w con Stat Discontinued Medications Sodium Chloride (Normal Saline 0.9%) 1,000 mls @ 1,000 mls/hr IV BOLUS ONE Stop: 08/13/18 05:36 Last Infusion: 08/13/18 04:44 Dose: 1,000 mls/hr Admin: 08/13/18 03:40 Dose: 1,000 mls/hr Sodium Chloride (Normal Saline 0.9%) 1,000 mls @ 1,000 mls/hr IV BOLUS ONE Stop: 08/13/18 05:37 Last Infusion: 08/13/18 06:00 Dose: 1,000 mls/hr Admin: 08/13/18 04:10 Dose: 1,000 mls/hr Vital Signs - 8 hr 08/13/18 03:30 08/13/18 04:00 08/13/18 04:26 Temperature 98.2 F Pulse Rate 81 77 83 Respiratory Rate 13 16 12 Blood Pressure [Left Arm] 138/76 46/31 L 101/53 L Pulse Oximetry 79 L 95 95 08/13/18 04:46 08/13/18 05:04 08/13/18 06:02 Temperature Pulse Rate 86 81 82 Respiratory Rate 16 13 17 Blood Pressure [Left Arm] 107/52 L 111/54 L 120/64 Pulse Oximetry 95 95 92 MDM - Extremity Injury (Upper) Lab Data Attestation: I reviewed the patient's lab results. Result diagrams: 08/13/18 03:20 08/13/18 04:35 Lab Results 08/13/18 08/13/18 08/13/18 Range/Units 03:20 03:20 04:35 WBC 4.5 (4.5-11.0) X10^3/uL RBC 3.84 L (4.5-5.9) X10^6/uL Hgb 13.2 L (13.5-17.5) g/dL Hct 38.9 L (41-53) % MCV 101.4 H (80-100) fL MCH 34.4 H (26-34) PG MCHC 33.9 (30-36) % RDW 15.9 H (11.6-14.8) % Plt Count 107 L (150-400) X10^3/uL Neut % (Auto) 17.3 L (50-75) % Lymph % (Auto) 71.0 H (25-40) % [place] % (Auto) 9.8 (3-14) % Eos % (Auto) 0.6 L (2-4) % Baso % (Auto) 1.3 (0-2) % Neut # (Auto) 800 L (2701-7557) /uL Lymph # (Auto) 3200 (7465-1044) /uL [place] # (Auto) 400 (0-900) /uL Eos # (Auto) 0 (0-450) /uL Baso # (Auto) 100 (0-100) /uL Sodium (137-145) mmol/L Potassium (3.4-5.1) mmol/L Chloride (98-107) mmol/L Carbon Dioxide (22-32) mmol/L BUN (9-20) mg/dL Creatinine (0.66-1.25) mg/dL Estimated GFR (>60) mL/min BUN/Creatinine Ratio (6-22) Glucose (80-110) mg/dL Calcium (8.4-10.2) mg/dL B-Natriuretic Peptide < 100 (<100) Blood Type A Negative Antibody Screen Negative 08/13/18 Range/Units 04:35 WBC (4.5-11.0) X10^3/uL RBC (4.5-5.9) X10^6/uL Hgb (13.5-17.5) g/dL Hct (41-53) % MCV (80-100) fL MCH (26-34) PG MCHC (30-36) % RDW (11.6-14.8) % Plt Count (150-400) X10^3/uL Neut % (Auto) (50-75) % Lymph % (Auto) (25-40) % [place] % (Auto) (3-14) % Eos % (Auto) (2-4) % Baso % (Auto) (0-2) % Neut # (Auto) (4090-7848) /uL Lymph # (Auto) (7621-7029) /uL [place] # (Auto) (0-900) /uL Eos # (Auto) (0-450) /uL Baso # (Auto) (0-100) /uL Sodium 142 (137-145) mmol/L Potassium 3.8 (3.4-5.1) mmol/L Chloride 106 (98-107) mmol/L Carbon Dioxide 25 (22-32) mmol/L BUN 13 (9-20) mg/dL Creatinine 0.60 L (0.66-1.25) mg/dL Estimated GFR > 60.0 (>60) mL/min BUN/Creatinine Ratio 21.7 (6-22) Glucose 110 (80-110) mg/dL Calcium 8.0 L (8.4-10.2) mg/dL B-Natriuretic Peptide (<100) Blood Type Antibody Screen Imaging Data X-ray elbow: Attestation: I personally reviewed and interpreted this imaging study as follows: My impression: No fracture, no dislocation CT scan - abdomen: Radiologist's impression: Mildly displaced left 10th and 11th rib fractures with adjacent chest wall contusion. No visceral injury. Hepatic steatosis. Cholelithiasis. [facility] Narrative Medical decision making narrative: Shortly after arrival while I was attempting to control the bleeding in his right upper extremity patient had multiple readings of low blood pressure. He was mentating without any problems. He was not tachycardic. After we repositioned the blood pressure cuff he continued to have a systolic blood pressure less than 80. I initially asked for the emergency release blood. Another IV was started. Fluids were administered. His blood pressure then improved. He was never given any blood. He was then able to maintain his blood pressure. He ambulated in the emergency department without any problems. The CT scan of his abdomen was performed secondary to the multiple bruises and also the left-sided discomfort. He does have fractured ribs on the left which I suspect is the cause of this pain. Unsure if this was from this fall or prior falls. The patient is also unsure. He does have a significant alcohol abuse problem. He does have a primary doctor in the area. Upon discharge patient's wound was not actively bleeding. Will send home on antibiotics given the extent of the wound. Patient was given care instructions with regard to the stitches. He was instructed he needed to contact his primary care doctor for follow-up. He was able to ambulate in the emergency department with out any problems. He was sent home by taxi per his request. Discharge Plan Departure Patient Disposition: Home Clinical Impression: Laceration Alcohol intoxication Qualifiers: Complication of substance-induced condition: with unspecified complication Q ualified Code(s): F10.929 - Alcohol use, unspecified with intoxication, unspecified Left rib fracture Qualifiers: Encounter type: initial encounter Rib fracture type: multiple ribs Fracture type: closed Qualified Code(s): S22.42XA - Multiple fractures of ribs, left side, initial encounter for closed fracture Fall Qualifiers: Encounter type: initial encounter Qualified Code(s): W19.XXXA - Unspecified fall, initial encounter Instructions: DI for Rib Fracture, DI for Laceration Repair, How to Prevent Falls Activity Restrictions/Additional Instructions: The stitches that were placed in your arm to need to be removed in the next 7-10 days. Later today contact your primary care doctor for a follow-up. Take the antibiotics as directed. Leave the bandage in place for the next 24 hr. After that you can take it off. You can shower like normal in use soap and water like normal. Return to the emergency department for any new or worsening symptoms. No driving for the next 24 hr or in the future if you decide to partake in intoxicating substances. Prescriptions: New cephalexin [Keflex] 500 mg capsule 500 mg PO BID 7 Days Qty: 14 RF: 0 No Action omeprazole 40 MG capsule,delayed release(DR/EC) 40 mg Qty: 0 RF: 0 alprazolam [Xanax] 0.5 MG tablet Qty: 0 RF: 0 testosterone cypionate [Depo-Testosterone] 100 MG/1 ML oil Qty: 0 RF: 0 tamsulosin [Flomax] 0.4 MG capsule,extended release 24hr Qty: 0 RF: 0 duloxetine [Cymbalta] 20 MG capsule,delayed release(DR/EC) 20 mg Qty: 0 RF: 0 gabapentin 400 mg capsule 400 mg PO TID Qty: 20 RF: 0 Referrals: Oh Hall [Primary Care Provider] -
--- NOTE | 2018-08-13 04:40 | PC.NURSE ---
Pt c/o left back and rib pain, bruising noted. Dr monroy. CT being ordered by
[2018-08-13 04:46] VITALS: BP 107/52; PULSE 86; RESP 16; O2SAT 95
--- NOTE | 2018-08-13 04:59 | DI.CT.S_ITS ---
PROCEDURE: CT ABDOMEN PELVIS W CON INDICATIONS: Left-sided abdominal pain TECHNIQUE: After the administration of intravenous contrast, 5 mm thick sections acquired from the diaphragm to the symphysis. 5 mm coronal and sagittal reformats were acquired. For radiation dose reduction, the following was used: automated exposure control, adjustment of mA and/or kV according to patient size. COMPARISON: None. FINDINGS: Image quality: Excellent. ABDOMEN: Lung bases: Lung bases are clear. Heart size is normal. There is a small to moderate-sized hiatal hernia. Solid organs: Severe hepatic fat infiltration. Liver is normal in size. Gallbladder contains small calcified stones. Biliary system is non dilated. Pancreas is normal in morphology and enhancement. Spleen is normal in size and enhancement. No adrenal nodules. Kidneys demonstrate normal size and enhancement, without hydronephrosis. Multiple low density nodules in kidneys bilaterally atelectasis. 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 Bowel loops demonstrate normal wall thickness and caliber. There are scattered colonic diverticula. No CT findings to suggest acute diverticulitis. Appendix is normal. No free fluid or air. Nodes and vessels: No retroperitoneal or mesenteric adenopathy by size criteria. Aorta and inferior vena cava are normal in size. Miscellaneous: No ventral hernias. PELVIS: Genitourinary: Bladder is contracted. Miscellaneous: No inguinal adenopathy. There is a fat containing right inguinal hernia. Bones: No suspicious bony lesions. No vertebral body compression fractures. Acute left 10th and 11th rib fractures noted. Degenerative changes noted in lower thoracic and lumbar spine. There is bridging osteophytes in the lower thoracic spine. IMPRESSION: 1. Acute left 10th and 11th rib fractures likely responsible for left upper abdominal pain. 2. Severe hepatic steatosis. 3. Cholelithiasis 4. Diverticulosis without acute diverticulitis. 5. Post surgical changes in stomach. There is a moderate-sized hiatal hernia. 6. Low-density nodules in kidneys bilaterally are likely cysts. No significant discrepancy with the assistant shift supervisor radiology preliminary report. Dictated by: Yury Barros M.D. on 08/13/2018 at 7:58 Approved by: Yury Barros M.D. on 08/13/2018 at 9:54
[2018-08-13 05:02] LABS: B Type Natriuretic Peptide < 100 (<100)
[2018-08-13 05:04] VITALS: BP 111/54; PULSE 81; RESP 13; O2SAT 95
[2018-08-13 05:32] LABS: BUN Creatinine Ratio 21.7 (6-22); Blood Urea Nitrogen 13 mg/dL (9-20); Carbon Dioxide 25 mmol/L (22-32); Chloride 106 mmol/L (98-107); Estimated Glomerular Filt Rate > 60.0 mL/min (>60); Glucose 110 mg/dL (80-110); HEMOLYSIS < 15 (0-50); Potassium 3.8 mmol/L (3.4-5.1); Sodium 142 mmol/L (137-145)
[2018-08-13 06:02] VITALS: BP 120/64; PULSE 82; RESP 17; O2SAT 92
[2018-08-13 06:42] LABS: Add Manual Diff / Slide Review YES
[2018-08-13 07:16] LABS: Neutrophils Absolute Manual 630 /uL (3000-5900); Total Cells Counted 100
[2018-08-13 07:17] LABS: Anisocytosis 1+
== END 2018-08-13 06:50 | disposition home or self-care (01) ==
PROVIDERS: Emergency Provider Emergency Medicine; PCP Internal Medicine
DX: S51.011A Laceration without foreign body of right elbow, initial encounter (principal); S22.42XA Multiple fractures of ribs, left side, initial encounter for closed fracture; F10.929 Alcohol use, unspecified with intoxication, unspecified; W19.XXXA Unspecified fall, initial encounter
CPT/HCPCS: 12005; 36415; 73080; 74177; 80048; 83880; 85025; 86850; 86900; 86901; 96360; 96361; 99283; 99285; 99291; J1885; Q9967

== ENCOUNTER 2018-08-13 14:29 | Emergency (ER) | payer MEDICARE, OTHER, SELFPAY ==
[2018-08-13 14:35] VITALS: BP 136/79; PULSE 100; RESP 18; TEMP 37.4; O2SAT 100
--- NOTE | 2018-08-13 15:10 | ED.RECABL ---
HPI - Recheck/Abnormal Lab/Rx <MIKHAIL Melendrez - Last Filed: 08/13/18 22:20> General Chief Complaint: Recheck/Abnormal Lab/Rx Stated Complaint: d/c earlier today, returning d/t pain. Time Seen by Provider: 08/13/18 14:50 Source: patient and EMS Mode of arrival: EMS Limitations: no limitations History of Present Illness HPI narrative: Patient is a 63-year-old male nonsmoker single male with history of alcoholism who presents with a chief complaint of alcohol withdrawal as well as pain from his fall previously today. He was seen at this facility earlier today and diagnosed with broken ribs as well as a an arm laceration. He states he is concerned as he knows that withdrawing from alcohol can kill him and he is noticing tremors. Last oral intake of alcohol was yesterday. He has not had a drink since then. He denies any injury since his discharge this morning. He does not wish to go inpatient anywhere this point time. Related Data Home Medications Medication Instructions Recorded Confirmed omeprazole 40 mg #0 04/10/17 tamsulosin [Flomax] 0.4 mg PO DAILY #0 04/10/17 08/13/18 alprazolam 0.25 mg PO BID PRN 08/13/18 08/13/18 duloxetine 60 mg PO DAILY 08/13/18 08/13/18 gabapentin 600 mg PO BID PRN 08/13/18 08/13/18 testosterone cypionate 1 ml IM Q2W 08/13/18 08/13/18 trazodone 100 mg PO BEDTIME 08/13/18 08/13/18 Previous Rx's Medication Instructions Recorded chlordiazepoxide HCl See Rx Instructions .ROUTE 08/13/18 .COMPLEX #31 cap Allergies Allergy/AdvReac Type Severity Reaction Status Date / Time hydrochlorothiazide Allergy Severe Anaphylaxis Verified 08/21/18 16:35 [HYDROCHLOROTHIAZIDE] lisinopril [LISINOPRIL] Allergy Severe Anaphylaxis Verified 08/21/18 16:35 Review of Systems <MIKHAIL Melendrez - Last Filed: 08/13/18 22:20> Review of Systems GENERAL: Denies chills, fatigue, malaise, fever, sweats. HEENT: Denies sinus pain, ear pain, sore throat, difficulty swallowing, dizziness. RESPIRATORY: Denies dyspnea, cough, wheezing, hemoptysis, sputum. CARDIOVASCULAR: Denies chest pain, palpitations, orthopnea, edema, GASTROINTESTINAL: Denies nausea, vomiting, abdominal pain, diarrhea, constipation, melena. : Denies dysuria, frequency, incontinence, hematuria, urinary retention. MUSCULOSKELETAL: See HPI SKIN: Denies rash, skin lesions, or other NEUROLOGIC: Denies weakness, headache, numbness, change in speech, confusion, seizures, incoordination. PSYCHIATRIC: See HPI 12 point review of systems is negative except for those stated above PFSH <DIONICIO Melendrez-BC - Last Filed: 08/13/18 22:20> Social History household members: none Smoking Status: Never smoker alcohol intake: current Exam <DIONICIO Melendrez- - Last Filed: 08/13/18 22:20> Narrative Exam Narrative: GENERAL: This is a well-nourished, well-developed patient, in mild distress. HEAD: Atraumatic. Normocephalic. No temporal or scalp tenderness. EYES: Pupils equal round and reactive. Extraocular motions intact. No scleral icterus. No injection or drainage. ENT: Nose without bleeding, purulent drainage or septal hematoma. Throat without erythema, tonsillar hypertrophy or exudate. Uvula midline. Airway patent. NECK: Trachea midline. No JVD or lymphadenopathy. Supple, nontender, no meningeal signs. CARDIOVASCULAR: Regular rate and rhythm without murmurs, gallops, or rubs. RESPIRATORY: Clear to auscultation. Breath sounds equal bilaterally. No wheezes, rales, or rhonchi. GASTROINTESTINAL: Abdomen obese non-tender, nondistended. No hepato-splenomegaly, or palpable masses. No guarding. Active bowel sounds all 4 quadrants EXTREMITIES: No clubbing, cyanosis, or edema. No joint tenderness, effusion, or edema noted. BACK: Nontender without deformity or crepitance. No flank tenderness. Pain to palpation of left ribs. Pain on anterior posterior compression as well as lateral chest wall compression. NEURO: AOx3. stable gait. Tremors noted. SKIN: Dressing noted on right elbow is clean dry and intact. Multiple bruises noted throughout his body. Initial Vital Signs Initial Vital Signs: Vital Signs Temperature 99.4 F 08/13/18 14:35 Pulse Rate 100 H 08/13/18 14:35 Respiratory Rate 18 08/13/18 14:35 Blood Pressure 136/79 08/13/18 14:35 Pulse Oximetry 100 08/13/18 14:35 <Elena Jason DO - Last Filed: 08/23/18 13:04> Initial Vital Signs Initial Vital Signs: Vital Signs Temperature 99.4 F 08/13/18 14:35 Pulse Rate 100 H 08/13/18 14:35 Respiratory Rate 18 08/13/18 14:35 Blood Pressure 136/79 08/13/18 14:35 Pulse Oximetry 100 08/13/18 14:35 Course <MIKHAIL Melendrez - Last Filed: 08/13/18 22:20> Orders Ordered: Discontinued Medications Ketorolac Tromethamine (Toradol) 60 mg IM NOW ONE Stop: 08/13/18 15:00 Last Admin: 08/13/18 15:42 Dose: 60 mg Lorazepam (Ativan) 2 mg PO NOW ONE Stop: 08/13/18 15:00 Last Admin: 08/13/18 15:42 Dose: 2 mg Consultations Consultation #1: Spoke with social work, who does not have availability to speak with him today. Time: 15:10 Vital Signs - 8 hr 08/13/18 14:35 08/13/18 17:18 Temperature 99.4 F Pulse Rate 100 H 112 H Respiratory Rate 18 18 Blood Pressure 136/79 Blood Pressure [Left Arm] 151/85 H Pulse Oximetry 100 100 <Elena Jason DO - Last Filed: 08/23/18 13:04> Orders Ordered: Discontinued Medications Ketorolac Tromethamine (Toradol) 60 mg IM NOW ONE Stop: 08/13/18 15:00 Last Admin: 08/13/18 15:42 Dose: 60 mg Lorazepam (Ativan) 2 mg PO NOW ONE Stop: 08/13/18 15:00 Last Admin: 08/13/18 15:42 Dose: 2 mg Vital Signs - 8 hr 08/13/18 14:35 08/13/18 17:18 Temperature 99.4 F Pulse Rate 100 H 112 H Respiratory Rate 18 18 Blood Pressure 136/79 Blood Pressure [Left Arm] 151/85 H Pulse Oximetry 100 100 [facility] - Recheck/Abnormal Lab/Rx <Paola Merchant, PASTRY SUPERVISOR-BC - Last Filed: 08/13/18 22:20> [facility] Narrative Medical decision making narrative: The patient is a 63-year-old male who is well known to this facility. He came back today after being discharged this morning for concern of alcohol withdrawal as well as generalized pain. He was treated with Toradol in the emergency department. Given his known alcohol use, I am not comfortable discharging him with opiates. The patient does state that he plans on cessation of drinking alcohol, but did not want to go inpatient. I contacted social Work, who is unable to see him at this point in time. He was given Ativan in the emergency department for withdrawal symptoms. I did discharge him with a Librium taper and instructed him to follow up as soon as possible with his primary care physician. He had no questions or concerns upon discharge. He is able to ambulate with a steady gait per nursing staff prior to discharge. Discharge Plan Departure Patient Disposition: Home Clinical Impression: Left rib fracture Qualifiers: Encounter type: initial encounter Rib fracture type: multiple ribs Fracture type: closed Qualified Code(s): S22.42XA - Multiple fractures of ribs, left side, initial encounter for closed fracture Alcohol withdrawal Qualifiers: Complication of substance-induced condition: uncomplicated Qualified Code(s): F10.230 - Alcohol dependence with withdrawal, uncomplicated Discharge Date/Time: 08/13/18 18:17 Interventions: ED Discharge Assessment Last Done: 08/13/18 18:17 Instructions: DI for Rib Fracture, DI for Delirium Tremens, DI for Alcohol Abuse, DI for Drug or Alcohol Withdrawal Activity Restrictions/Additional Instructions: I am giving you a prescription for Librium to help with alcohol detox. This is a 5 day taper. Do not combine it with alcohol or other sedating medications. Regarding her rib pain, please use [id number] medications as well as ice. Please follow up with primary care provider as discussed on Thursday. We are also giving you information on alcohol cessation as well as contact numbers and support. Prescriptions: New chlordiazepoxide HCl 25 mg capsule See Rx Instructions .ROUTE .COMPLEX Qty: 31 RF: 0 No Action omeprazole 40 MG capsule,delayed release(DR/EC) 40 mg Qty: 0 RF: 0 tamsulosin [Flomax] 0.4 MG capsule,extended release 24hr 0.4 mg PO DAILY Qty: 0 RF: 0 gabapentin 600 mg tablet 600 mg PO BID PRN (Reason: unknown) RF: 0 alprazolam 0.25 mg tablet 0.25 mg PO BID PRN (Reason: Anxiety) RF: 0 trazodone 100 mg tablet 100 mg PO BEDTIME RF: 0 testosterone cypionate 200 mg/mL oil 1 ml IM Q2W RF: 0 duloxetine 60 mg capsule,delayed release(DR/EC) 60 mg PO DAILY RF: 0 Referrals: Oh Hall [Primary Care Provider] - <Elena Jason DO - Last Filed: 08/23/18 13:04> Cosign ED Attending Cosignature Attestation: I was immediately available in the department for consultation. Documentation has been reviewed. I agree with assessment and plan.
--- NOTE | 2018-08-13 15:13 | ED_ITS ---
HPI - Recheck/Abnormal Lab/Rx <MIKHAIL Melendrez - Last Filed: 08/13/18 22:20> General Chief Complaint: Recheck/Abnormal Lab/Rx Stated Complaint: d/c earlier today, returning d/t pain. Time Seen by Provider: 08/13/18 14:50 Source: patient and EMS Mode of arrival: EMS Limitations: no limitations History of Present Illness HPI narrative: Patient is a 63-year-old male nonsmoker single male with history of alcoholism who presents with a chief complaint of alcohol withdrawal as well as pain from his fall previously today. He was seen at this facility earlier today and diagnosed with broken ribs as well as a an arm laceration. He states he is concerned as he knows that withdrawing from alcohol can kill him and he is noticing tremors. Last oral intake of alcohol was yesterday. He has not had a drink since then. He denies any injury since his discharge this morning. He does not wish to go inpatient anywhere this point time. Related Data Home Medications Medication Instructions Recorded Confirmed omeprazole 40 mg #0 04/10/17 tamsulosin [Flomax] 0.4 mg PO DAILY #0 04/10/17 08/13/18 alprazolam 0.25 mg PO BID PRN 08/13/18 08/13/18 duloxetine 60 mg PO DAILY 08/13/18 08/13/18 gabapentin 600 mg PO BID PRN 08/13/18 08/13/18 testosterone cypionate 1 ml IM Q2W 08/13/18 08/13/18 trazodone 100 mg PO BEDTIME 08/13/18 08/13/18 Previous Rx's Medication Instructions Recorded chlordiazepoxide HCl See Rx Instructions .ROUTE 08/13/18 .COMPLEX #31 cap Allergies Allergy/AdvReac Type Severity Reaction Status Date / Time hydrochlorothiazide Allergy Severe Anaphylaxis Verified 08/21/18 16:35 [HYDROCHLOROTHIAZIDE] lisinopril [LISINOPRIL] Allergy Severe Anaphylaxis Verified 08/21/18 16:35 Review of Systems <MIKHAIL Melendrez - Last Filed: 08/13/18 22:20> Review of Systems GENERAL: Denies chills, fatigue, malaise, fever, sweats. HEENT: Denies sinus pain, ear pain, sore throat, difficulty swallowing, dizziness. RESPIRATORY: Denies dyspnea, cough, wheezing, hemoptysis, sputum. CARDIOVASCULAR: Denies chest pain, palpitations, orthopnea, edema, GASTROINTESTINAL: Denies nausea, vomiting, abdominal pain, diarrhea, constipa tion, melena. : Denies dysuria, frequency, incontinence, hematuria, urinary retention. MUSCULOSKELETAL: See HPI SKIN: Denies rash, skin lesions, or other NEUROLOGIC: Denies weakness, headache, numbness, change in speech, confusion, seizures, incoordination. PSYCHIATRIC: See HPI 12 point review of systems is negative except for those stated above PFSH <Paola DIONICIO Merchant-BC - Last Filed: 08/13/18 22:20> Social History household members: none Smoking Status: Never smoker alcohol intake: current Exam <DIONICIO Melendrez-BC - Last Filed: 08/13/18 22:20> Narrative Exam Narrative: GENERAL: This is a well-nourished, well-developed patient, in mild distress. HEAD: Atraumatic. Normocephalic. No temporal or scalp tenderness. EYES: Pupils equal round and reactive. Extraocular motions intact. No scleral icterus. No injection or drainage. ENT: Nose without bleeding, purulent drainage or septal hematoma. Throat without erythema, tonsillar hypertrophy or exudate. Uvula midline. Airway patent. NECK: Trachea midline. No JVD or lymphadenopathy. Supple, nontender, no meningeal signs. CARDIOVASCULAR: Regular rate and rhythm without murmurs, gallops, or rubs. RESPIRATORY: Clear to auscultation. Breath sounds equal bilaterally. No wheezes, rales, or rhonchi. GASTROINTESTINAL: Abdomen obese non-tender, nondistended. No hepato- splenomegaly, or palpable masses. No guarding. Active bowel sounds all 4 quadrants EXTREMITIES: No clubbing, cyanosis, or edema. No joint tenderness, effusion, or edema noted. BACK: Nontender without deformity or crepitance. No flank tenderness. Pain to palpation of left ribs. Pain on anterior posterior compression as well as lateral chest wall compression. NEURO: AOx3. stable gait. Tremors noted. SKIN: Dressing noted on right elbow is clean dry and intact. Multiple bruises noted throughout his body. Initial Vital Signs Initial Vital Signs: Vital Signs Temperature 99.4 F 08/13/18 14:35 Pulse Rate 100 H 08/13/18 14:35 Respiratory Rate 18 08/13/18 14:35 Blood Pressure 136/79 08/13/18 14:35 Pulse Oximetry 100 08/13/18 14:35 <Elena Jason DO - Last Filed: 08/23/18 13:04> Initial Vital Signs Initial Vital Signs: Vital Signs Temperature 99.4 F 08/13/18 14:35 Pulse Rate 100 H 08/13/18 14:35 Respiratory Rate 18 08/13/18 14:35 Blood Pressure 136/79 08/13/18 14:35 Pulse Oximetry 100 08/13/18 14:35 Course <MIKHAIL Melendrez - Last Filed: 08/13/18 22:20> Orders Ordered: Discontinued Medications Ketorolac Tromethamine (Toradol) 60 mg IM NOW ONE Stop: 08/13/18 15:00 Last Admin: 08/13/18 15:42 Dose: 60 mg Lorazepam (Ativan) 2 mg PO NOW ONE Stop: 08/13/18 15:00 Last Admin: 08/13/18 15:42 Dose: 2 mg Consultations Consultation #1: Spoke with social work, who does not have availability to speak with him today. Time: 15:10 Vital Signs - 8 hr 08/13/18 14:35 08/13/18 17:18 Temperature 99.4 F Pulse Rate 100 H 112 H Respiratory Rate 18 18 Blood Pressure 136/79 Blood Pressure [Left Arm] 151/85 H Pulse Oximetry 100 100 <Elena Jason DO - Last Filed: 08/23/18 13:04> Orders Ordered: Discontinued Medications Ketorolac Tromethamine (Toradol) 60 mg IM NOW ONE Stop: 08/13/18 15:00 Last Admin: 08/13/18 15:42 Dose: 60 mg Lorazepam (Ativan) 2 mg PO NOW ONE Stop: 08/13/18 15:00 Last Admin: 08/13/18 15:42 Dose: 2 mg Vital Signs - 8 hr 08/13/18 14:35 08/13/18 17:18 Temperature 99.4 F Pulse Rate 100 H 112 H Respiratory Rate 18 18 Blood Pressure 136/79 Blood Pressure [Left Arm] 151/85 H Pulse Oximetry 100 100 MDM - Recheck/Abnormal Lab/Rx <EMMA MelendrezP-BC - Last Filed: 08/13/18 22:20> [facility] Narrative Medical decision making narrative: The patient is a 63-year-old male who is well known to this facility. He came back today after being discharged this morning for concern of alcohol withdrawal as well as generalized pain. He was treated with Toradol in the emergency department. Given his known alcohol use, I am not comfortable discharging him with opiates. The patient does state that he plans on cessation of drinking alcohol, but did not want to go inpatient. I contacted social Work, who is unable to see him at this point in time. He was given Ativan in the emergency department for withdrawal symptoms. I did discharge him with a Librium taper and instructed him to follow up as soon as possible with his primary care physician. He had no questions or concerns upon discharge. He is able to ambulate with a steady gait per nursing staff prior to discharge. Discharge Plan Departure Patient Disposition: Home Clinical Impression: Left rib fracture Qualifiers: Encounter type: initial encounter Rib fracture type: multiple ribs Fracture type: closed Qualified Code(s): S22.42XA - Multiple fractures of ribs, left side, initial encounter for closed fracture Alcohol withdrawal Qualifiers: Complication of substance-induced condition: uncomplicated Qualified Code(s): F10.230 - Alcohol dependence with withdrawal, uncomplicated Discharge Date/Time: 08/13/18 18:17 Interventions: ED Discharge Assessment Last Done: 08/13/18 18:17 Instructions: DI for Rib Fracture, DI for Delirium Tremens, DI for Alcohol Abuse, DI for Drug or Alcohol Withdrawal Activity Restrictions/Additional Instructions: I am giving you a prescription for Librium to help with alcohol detox. This is a 5 day taper. Do not combine it with alcohol or other sedating medications. Regarding her rib pain, please use [id number] medications as well as ice. Please follow up with primary care provider as discussed on Thursday. We are also giving you information on alcohol cessation as well as contact numbers and support. Prescriptions: New chlordiazepoxide HCl 25 mg capsule See Rx Instructions .ROUTE .COMPLEX Qty: 31 RF: 0 No Action omeprazole 40 MG capsule,delayed release(DR/EC) 40 mg Qty: 0 RF: 0 tamsulosin [Flomax] 0.4 MG capsule,extended release 24hr 0.4 mg PO DAILY Qty: 0 RF: 0 gabapentin 600 mg tablet 600 mg PO BID PRN (Reason: unknown) RF: 0 alprazolam 0.25 mg tablet 0.25 mg PO BID PRN (Reason: Anxiety) RF: 0 trazodone 100 mg tablet 100 mg PO BEDTIME RF: 0 testosterone cypionate 200 mg/mL oil 1 ml IM Q2W RF: 0 duloxetine 60 mg capsule,delayed release(DR/EC) 60 mg PO DAILY RF: 0 Referrals: Oh Hall [Primary Care Provider] - <Elena Jason DO - Last Filed: 08/23/18 13:04> Cosign ED Attending Cosignature Attestation: I was immediately available in the depart ment for consultation. Documentation has been reviewed. I agree with assessment and plan.
[2018-08-13] MEDS: KETOROLAC 60 MG/2 ML VIAL IM (15:42)
[2018-08-13] MEDS: LORazepam 0.5 MG TABLET 2 MG PO (15:42)
[2018-08-13 17:18] VITALS: BP 151/85; PULSE 112; RESP 18; O2SAT 100
== END 2018-08-13 18:17 | disposition home or self-care (01) ==
PROVIDERS: Emergency Provider Nurse Practitioner Family; PCP Internal Medicine
DX: F10.239 Alcohol dependence with withdrawal, unspecified (principal)
CPT/HCPCS: 99283; J1885

== ENCOUNTER 2018-08-21 16:18 | Emergency (ER) | payer MEDICARE, OTHER, SELFPAY ==
[2018-08-21 16:30] VITALS: BP 126/74; PULSE 76; RESP 14; TEMP 36.4; O2SAT 100
--- NOTE | 2018-08-21 18:07 | ED.SKABFB ---
HPI - Skin/Abscess/Foreign Bdy <BONG Sparks - Last Filed: 08/21/18 21:56> General Chief complaint: Skin/Abscess/Foreign Body Stated complaint: large open wound right elbow,stitches opened Time Seen by Provider: 08/21/18 17:25 Source: patient Mode of arrival: ambulatory Limitations: no limitations History of Present Illness HPI narrative: 63-year-old male with history of alcohol abuse and is a nonsmoker for complaint of laceration to his right elbow. He had a ground level fall on August 13 and was seen here in the emergency room and treated for alcohol withdrawal and had the arm laceration closed. He reports that over the past few days he is not sure exactly when as he was on Librium for alcohol withdrawal treatment that the laceration and sutures or ruptured. He reports that he has had clearish drainage from the wound since then. He denies any new trauma to that area no fevers no chills. He reports pain with flexion of the right elbow he denies any other concerns or complaints at this timeframe. Related Data Home Medications Medication Instructions Recorded Confirmed omeprazole 40 mg #0 04/10/17 tamsulosin [Flomax] 0.4 mg PO DAILY #0 04/10/17 08/13/18 alprazolam 0.25 mg PO BID PRN 08/13/18 08/13/18 duloxetine 60 mg PO DAILY 08/13/18 08/13/18 gabapentin 600 mg PO BID PRN 08/13/18 08/13/18 testosterone cypionate 1 ml IM Q2W 08/13/18 08/13/18 trazodone 100 mg PO BEDTIME 08/13/18 08/13/18 Previous Rx's Medication Instructions Recorded chlordiazepoxide HCl See Rx Instructions .ROUTE 08/13/18 .COMPLEX #31 cap Allergies Allergy/AdvReac Type Severity Reaction Status Date / Time hydrochlorothiazide Allergy Severe Anaphylaxis Verified 08/21/18 16:35 [HYDROCHLOROTHIAZIDE] lisinopril [LISINOPRIL] Allergy Severe Anaphylaxis Verified 08/21/18 16:35 Review of Systems <BONG Sparks - Last Filed: 08/21/18 21:56> Constitutional Denies chills, Denies fever(s), Denies lethargy and Denies weakness Eyes Denies change in vision, Denies eye discharge, Denies irritation and Denies loss of vision ENT Ears, Nose, Mouth, and Throat: Denies change in voice, Denies neck pain and Denies sore throat Cardiovascular Denies chest pain, Denies irregular heart rhythm, Denies lightheadedness, Denies palpitations, Denies dyspnea, Denies dyspnea on exertion and Denies orthopnea Respiratory Denies cough, Denies dyspnea, Denies dyspnea on exertion and Denies wheezing Gastrointestinal Gastrointestinal: Denies abdominal pain, Denies change in bowel habits, Denies diarrhea, Denies nausea and Denies vomiting Genitourinary Denies hematuria, Denies flank pain, Denies urinary incontinence and Denies urinary urgency Musculoskeletal Denies neck pain Comments: Laceration to right elbow sutures ruptured. Integumentary/Breasts Denies pruritus, Denies erythema, Denies rash and Denies wounds Neurologic Denies confusion, Denies loss of vision and Denies weakness Psychiatric Denies anxiety, Denies confusion, Denies depression, Denies homicidal ideation and Denies suicidal ideation Endocrine Denies palpitations Hematologic/Lymphatic Denies easy bruising Allergic/Immunologic Denies wheezing PFSH <BONG Sparks - Last Filed: 08/21/18 21:56> Medical History Alcoholism (Acute) Surgical History 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 (Acute) History of fasciotomy (Acute) Social History household members: none Smoking Status: Never smoker alcohol intake: current Social History household members: none Smoking Status: Never smoker alcohol intake: current Exam <BONG Sparks - Last Filed: 08/21/18 21:56> Initial Vital Signs Initial Vital Signs: Vital Signs Temperature 97.6 F 08/21/18 16:30 Pulse Rate 76 08/21/18 16:30 Respiratory Rate 14 08/21/18 16:30 Blood Pressure 126/74 08/21/18 16:30 Pulse Oximetry 100 08/21/18 16:30 Const General: cooperative and well developed Nutritional Appearance: well nourished Orientation: alert, awake, oriented x3 and not confused HENMT Mouth: oral mucosae normal and moist mucous membranes Eyes General: appearance normal, both eyes and all related structures Conjunctivae: conjunctivae normal Sclera: sclerae normal Pupils: PERRL EOM: EOM intact bilaterally Resp Effort & Inspection: normal respiratory effort, able to speak in complete sentences, no respiratory distress and no use of accessory muscles Auscultation: clear to auscultation bilaterally, no rales, no rhonchi and no wheezes Cardio Rate: regular rate Rhythm: regular rhythm Heart Sounds: no click, no gallops, no murmurs and no rubs Pulses: normal peripheral pulses Neuro General: alert, oriented x3, gait normal and no focal motor deficits Speech: speech normal Extrem Other: 15 cm laceration to posterior right elbow area with ruptured sutures. No signs of infection at this time. No erythema. Wound is draining serous drainage. Distal sensation is intact. Distal range of motion is intact. Distal pulses are intact <Drew Tinoco DO - Last Filed: 08/22/18 00:22> Initial Vital Signs Initial Vital Signs: Vital Signs Temperature 97.6 F 08/21/18 16:30 Pulse Rate 76 08/21/18 16:30 Respiratory Rate 14 08/21/18 16:30 Blood Pressure 126/74 08/21/18 16:30 Pulse Oximetry 100 08/21/18 16:30 Course <BONG Sparks - Last Filed: 08/21/18 21:56> Orders Ordered: ED Orders 08/21/18 18:06 Complete Blood Count AUTO DIFF Stat Lactate (Lactic Acid) Stat Procalcitonin Stat Vital Signs - 8 hr 08/21/18 16:30 08/21/18 20:30 Temperature 97.6 F Pulse Rate 76 82 Respiratory Rate 14 16 Blood Pressure 126/74 118/80 Pulse Oximetry 100 98 <Drew Tinoco DO - Last Filed: 08/22/18 00:22> Orders Ordered: ED Orders 08/21/18 18:06 Complete Blood Count AUTO DIFF Stat Lactate (Lactic Acid) Stat Procalcitonin Stat Vital Signs - 8 hr 08/21/18 16:30 08/21/18 20:30 Temperature 97.6 F Pulse Rate 76 82 Respiratory Rate 14 16 Blood Pressure 126/74 118/80 Pulse Oximetry 100 98 MDM - Skin/Abscess/Foreign Bdy <BONG Sparks - Last Filed: 08/21/18 21:56> Lab Data Result diagrams: 08/21/18 18:06 Lab Results 08/21/18 08/21/18 08/21/18 Range/Units 18:06 18:06 18:06 WBC 4.3 L (4.5-11.0) X10^3/uL RBC 2.98 L (4.5-5.9) X10^6/uL Hgb 10.2 L (13.5-17.5) g/dL Hct 31.1 L (41-53) % MCV 104.4 H D (80-100) fL MCH 34.2 H (26-34) PG MCHC 32.8 (30-36) % RDW 16.0 H (11.6-14.8) % Plt Count 324 (150-400) X10^3/uL Neut % (Auto) 54.3 (50-75) % Lymph % (Auto) 24.5 L (25-40) % Divide % (Auto) 18.4 H (3-14) % Eos % (Auto) 1.6 L (2-4) % Baso % (Auto) 1.2 (0-2) % Neut # (Auto) 2400 (2107-8982) /uL Lymph # (Auto) 1100 (0248-4517) /uL Divide # (Auto) 800 (0-900) /uL Eos # (Auto) 100 (0-450) /uL Baso # (Auto) 100 (0-100) /uL Lactate 1.5 (0.7-2.1) mmol/L Procalcitonin 0.30 (<0.5) ng/mL MDM Narrative Medical decision making narrative: CBC shows anemia which is consistent with his prior lab values. WBCs are mildly low at 4.3 no elevation. lactate was obtained and was normal. Procalcitonin was obtained was also normal. Discussed case with surgery Dr. Anne who recommends wet to dry dressing and follow up with wound care. He is referred to wound care. Patient call the office tomorrow to schedule follow-up appointment. He is also placed in a sling for comfort and support and to limit the stress on the laceration to the posterior elbow. [id number] Tylenol as needed for any discomfort. Change dressing daily as directed. For any worsening symptoms return emergency room. <Drew Tinoco DO - Last Filed: 08/22/18 00:22> Lab Data Lab Results 08/21/18 08/21/18 08/21/18 Range/Units 18:06 18:06 18:06 WBC 4.3 L (4.5-11.0) X10^3/uL RBC 2.98 L (4.5-5.9) X10^6/uL Hgb 10.2 L (13.5-17.5) g/dL Hct 31.1 L (41-53) % MCV 104.4 H D (80-100) fL MCH 34.2 H (26-34) PG MCHC 32.8 (30-36) % RDW 16.0 H (11.6-14.8) % Plt Count 324 (150-400) X10^3/uL Neut % (Auto) 54.3 (50-75) % Lymph % (Auto) 24.5 L (25-40) % Divide % (Auto) 18.4 H (3-14) % Eos % (Auto) 1.6 L (2-4) % Baso % (Auto) 1.2 (0-2) % Neut # (Auto) 2400 (7701-7279) /uL Lymph # (Auto) 1100 (3953-5545) /uL Divide # (Auto) 800 (0-900) /uL Eos # (Auto) 100 (0-450) /uL Baso # (Auto) 100 (0-100) /uL Lactate 1.5 (0.7-2.1) mmol/L Procalcitonin 0.30 (<0.5) ng/mL Discharge Plan Departure Patient Disposition: Home Clinical Impression: Laceration of skin of right elbow Qualifiers: Encounter type: initial encounter Qualified Code(s): S51.011A - Laceration without foreign body of right elbow, initial encounter Discharge Date/Time: 08/21/18 20:39 Interventions: ED Discharge Assessment Last Done: 08/21/18 20:30 Instructions: DI for Open Laceration Activity Restrictions/Additional Instructions: Laceration to right elbow area will need to heal by secondary intention at this point. Change dressing as instructed daily to the wound follow up with wound Care Clinic call the number at number [phone] to schedule follow-up appointment. Use [id number] Tylenol or Motrin as needed for any discomfort. For any worsening symptoms return emergency room. May use sling for comfort and support Prescriptions: No Action omeprazole 40 MG capsule,delayed release(DR/EC) 40 mg Qty: 0 RF: 0 tamsulosin [Flomax] 0.4 MG capsule,extended release 24hr 0.4 mg PO DAILY Qty: 0 RF: 0 gabapentin 600 mg tablet 600 mg PO BID PRN (Reason: unknown) RF: 0 alprazolam 0.25 mg tablet 0.25 mg PO BID PRN (Reason: Anxiety) RF: 0 trazodone 100 mg tablet 100 mg PO BEDTIME RF: 0 testosterone cypionate 200 mg/mL oil 1 ml IM Q2W RF: 0 duloxetine 60 mg capsule,delayed release(DR/EC) 60 mg PO DAILY RF: 0 chlordiazepoxide HCl 25 mg capsule See Rx Instructions .ROUTE .COMPLEX Qty: 31 RF: 0 Referrals: Oh Hall [Primary Care Provider] - <Drew Tinoco DO - Last Filed: 08/22/18 00:22> Cosign ED Attending Cosallanature Attestation: I was immediately available in the department for consultation. Documentation has been reviewed. I agree with assessment and plan.
--- NOTE | 2018-08-21 18:18 | PC.NURSE ---
pt reports, right elbow injury 10 days ago, antibiotic treatment for 5 days. now pt here right elbow with open wound, subcutaneous, muscles visible, suture came undone. pt with full rom, +distal cms intact. pt denies fever, vomiting.
[2018-08-21 18:38] LABS: Lactate (Lactic Acid) 1.5 mmol/L (0.7-2.1)
[2018-08-21 18:39] LABS: Add Manual Diff / Slide Review NO; Basophils Absolute Auto 100 /uL (0-100); Basophils Percent Auto 1.2 % (0-2); Eosinophils Absolute Auto 100 /uL (0-450); Eosinophils Percent Auto 1.6 % (2-4); Hematocrit 31.1 % (41-53); Hemoglobin 10.2 g/dL (13.5-17.5); Lymphocytes Absolute Auto 1100 /uL (1100-4500); Lymphocytes Percent Auto 24.5 % (25-40); Mean Corpuscular HGB Conc 32.8 % (30-36); Mean Corpuscular Hemoglobin 34.2 PG (26-34); Mean Corpuscular Volume 104.4 fL (80-100); Monocytes Absolute Auto 800 /uL (0-900); Monocytes Percent Auto 18.4 % (3-14); Neutrophils Absolute Auto 2400 /uL (1500-7000); Neutrophils Percent Auto 54.3 % (50-75); Platelet Count 324 X10^3/uL (150-400); Red Blood Cell Count 2.98 X10^6/uL (4.5-5.9); White Blood Cell Count 4.3 X10^3/uL (4.5-11.0)
--- NOTE | 2018-08-21 19:21 | PC.NURSE ---
provider removed the sutures around the wound.
--- NOTE | 2018-08-21 19:47 | ED_ITS ---
HPI - Skin/Abscess/Foreign Bdy <BONG Sparks - Last Filed: 08/21/18 21:56> General Chief complaint: Skin/Abscess/Foreign Body Stated complaint: large open wound right elbow,stitches opened Time Seen by Provider: 08/21/18 17:25 Source: patient Mode of arrival: ambulatory Limitations: no limitations History of Present Illness HPI narrative: 63-year-old male with history of alcohol abuse and is a nonsmoker for complaint of laceration to his right elbow. He had a ground level fall on M arch 1st and was seen here in the emergency room and treated for alcohol withdrawal and had the arm laceration closed. He reports that over the past few days he is not sure exactly when as he was on Librium for alcohol withdrawal treatment that the laceration and sutures or ruptured. He reports that he has had clearish drainage from the wound since then. He denies any new trauma to that area no fevers no chills. He reports pain with flexion of the right elbow he denies any other concerns or complaints at this timeframe. Related Data Home Medications Medication Instructions Recorded Confirmed omeprazole 40 mg #0 04/10/17 tamsulosin [Flomax] 0.4 mg PO DAILY #0 04/10/17 08/13/18 alprazolam 0.25 mg PO BID PRN 08/13/18 08/13/18 duloxetine 60 mg PO DAILY 08/13/18 08/13/18 gabapentin 600 mg PO BID PRN 08/13/18 08/13/18 testosterone cypionate 1 ml IM Q2W 08/13/18 08/13/18 trazodone 100 mg PO BEDTIME 08/13/18 08/13/18 Previous Rx's Medication Instructions Recorded chlordiazepoxide HCl See Rx Instructions .ROUTE 08/13/18 .COMPLEX #31 cap Allergies Allergy/AdvReac Type Severity Reaction Status Date / Time hydrochlorothiazide Allergy Severe Anaphylaxis Verified 08/21/18 16:35 [HYDROCHLOROTHIAZIDE] lisinopril [LISINOPRIL] Allergy Severe Anaphylaxis Verified 08/21/18 16:35 Review of Systems <BONG Sparks - Last Filed: 08/21/18 21:56> Constitutional Denies chills, Denies fever(s), Denies lethargy and Denies weakness Eyes Denies change in vision, Denies eye discharge, Denies irritation and Denies loss of vision ENT Ears, Nose, Mouth, and Throat: Denies change in voice, Denies neck pain and Denies sore throat Cardiovascular Denies chest pain, Denies irregular heart rhythm, Denies lightheadedness, Denies palpitations, Denies dyspnea, Denies dyspnea on exertion and Denies orthopnea Respiratory Denies cough, Denies dyspnea, Denies dyspnea on exertion and Denies wheezing Gastrointestinal Gastrointestinal: Denies abdominal pain, Denies change in bowel habits, Denies diarrhea, Denies nausea and Denies vomiting Genitourinary Denies hematuria, Denies flank pain, Denies urinary incontinence and Denies urinary urgency Musculoskeletal Denies neck pain Comments: Laceration to right elbow sutures ruptured. Integumentary/Breasts Denies pruritus, Denies erythema, Denies rash and Denies wounds Neurologic Denies confusion, Denies loss of vision and Denies weakness Psychiatric Denies anxiety, Denies confusion, Denies depression, Denies homicidal ideation and Denies suicidal ideation Endocrine Denies palpitations Hematologic/Lymphatic Denies easy bruising Allergic/Immunologic Denies wheezing PFSH <BONG Sparks - Last Filed: 08/21/18 21:56> Medical History Alcoholism (Acute) Surgical History 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 (Acute) History of fasciotomy (Acute) Social History household members: none Smoking Status: Never smoker alcohol intake: current Social History household members: none Smoking Status: Never smoker alcohol intake: current Exam <BONG Sparks - Last Filed: 08/21/18 21:56> Initial Vital Signs Initial Vital Signs: Vital Signs Temperature 97.6 F 08/21/18 16:30 Pulse Rate 76 08/21/18 16:30 Respiratory Rate 14 08/21/18 16:30 Blood Pressure 126/74 08/21/18 16:30 Pulse Oximetry 100 08/21/18 16:30 Const General: cooperative and well developed Nutritional Appearance: well nourished Orientation: alert, awake, oriented x3 and not confused HENMT Mouth: oral mucosae normal and moist mucous membranes Eyes General: appearance normal, both eyes and all related structures Conjunctivae: conjunctivae normal Sclera: sclerae normal Pupils: PERRL EOM: EOM intact bilaterally Resp Effort & Inspection: normal respiratory effort, able to speak in complete sentences, no respiratory distress and no use of accessory muscles Auscultation: clear to auscultation bilaterally, no rales, no rhonchi and no wheezes Cardio Rate: regular rate Rhythm: regular rhythm Heart Sounds: no click, no gallops, no murmurs and no rubs Pulses: normal peripheral pulses Neuro General: alert, oriented x3, gait normal and no focal motor deficits Speech: speech normal Extrem Other: 15 cm laceration to posterior right elbow area with ruptured sutures. No signs of infection at this time. No erythema. Wound is draining serous drainage. Distal sensation is intact. Distal range of motion is intact. Distal pulses are intact <Drew Tinoco DO - Last Filed: 08/22/18 00:22> Initial Vital Signs Initial Vital Signs: Vital Signs Temperature 97.6 F 08/21/18 16:30 Pulse Rate 76 08/21/18 16:30 Respiratory Rate 14 08/21/18 16:30 Blood Pressure 126/74 08/21/18 16:30 Pulse Oximetry 100 08/21/18 16:30 Course <BONG Sparks - Last Filed: 08/21/18 21:56> Orders Ordered: ED Orders 08/21/18 18:06 Complete Blood Count AUTO DIFF Stat Lactate (Lactic Acid) Stat Procalcitonin Stat Vital Signs - 8 hr 08/21/18 16:30 08/21/18 20:30 Temperature 97.6 F Pulse Rate 76 82 Respiratory Rate 14 16 Blood Pressure 126/74 118/80 Pulse Oximetry 100 98 <Drew Tinoco DO - Last Filed: 08/22/18 00:22> Orders Ordered: ED Orders 08/21/18 18:06 Complete Blood Count AUTO DIFF Stat Lactate (Lactic Acid) Stat Procalcitonin Stat Vital Signs - 8 hr 08/21/18 16:30 08/21/18 20:30 Temperature 97.6 F Pulse Rate 76 82 Respiratory Rate 14 16 Blood Pressure 126/74 118/80 Pulse Oximetry 100 98 MDM - Skin/Abscess/Foreign Bdy <BONG Sparks - Last Filed: 08/21/18 21:56> Lab Data Result diagrams: 08/21/18 18:06 Lab Results 08/21/18 08/21/18 08/21/18 Range/Units 18:06 18:06 18:06 WBC 4.3 L (4.5-11.0) X10^3/uL RBC 2.98 L (4.5-5.9) X10^6/uL Hgb 10.2 L (13.5-17.5) g/dL Hct 31.1 L (41-53) % MCV 104.4 H D (80-100) fL MCH 34.2 H (26-34) PG MCHC 32.8 (30-36) % RDW 16.0 H (11.6-14.8) % Plt Count 324 (150-400) X10^3/uL Neut % (Auto) 54.3 (50-75) % Lymph % (Auto) 24.5 L (25-40) % Tama % (Auto) 18.4 H (3-14) % Eos % (Auto) 1.6 L (2-4) % Baso % (Auto) 1.2 (0-2) % Neut # (Auto) 2400 (9582-0996) /uL Lymph # (Auto) 1100 (0538-4532) /uL Tama # (Auto) 800 (0-900) /uL Eos # (Auto) 100 (0-450) /uL Baso # (Auto) 100 (0-100) /uL Lactate 1.5 (0.7-2.1) mmol/L Procalcitonin 0.30 (<0.5) ng/mL MDM Narrative Medical decision making narrative: CBC shows anemia which is consistent with his prior lab values. WBCs are mildly low at 4.3 no elevation. lactate was o btained and was normal. Procalcitonin was obtained was also normal. Discussed case with surgery Dr. Anne who recommends wet to dry dressing and follow up with wound care. He is referred to wound care. Patient call the office tomorrow to schedule follow-up appointment. He is also placed in a sling for comfort and support and to limit the stress on the laceration to the posterior elbow. [id number] Tylenol as needed for any discomfort. Change dressing daily as directed. For any worsening symptoms return emergency room. <Drew Tinoco DO - Last Filed: 08/22/18 00:22> Lab Data Lab Results 08/21/18 08/21/18 08/21/18 Range/Units 18:06 18:06 18:06 WBC 4.3 L (4.5-11.0) X10^3/uL RBC 2.98 L (4.5-5.9) X10^6/uL Hgb 10.2 L (13.5-17.5) g/dL Hct 31.1 L (41-53) % MCV 104.4 H D (80-100) fL MCH 34.2 H (26-34) PG MCHC 32.8 (30-36) % RDW 16.0 H (11.6-14.8) % Plt Count 324 (150-400) X10^3/uL Neut % (Auto) 54.3 (50-75) % Lymph % (Auto) 24.5 L (25-40) % Tama % (Auto) 18.4 H (3-14) % Eos % (Auto) 1.6 L (2-4) % Baso % (Auto) 1.2 (0-2) % Neut # (Auto) 2400 (4130-3930) /uL Lymph # (Auto) 1100 (6203-3724) /uL Tama # (Auto) 800 (0-900) /uL Eos # (Auto) 100 (0-450) /uL Baso # (Auto) 100 (0-100) /uL Lactate 1.5 (0.7-2.1) mmol/L Procalcitonin 0.30 (<0.5) ng/mL Discharge Plan Departure Patient Disposition: Home Clinical Impression: Laceration of skin of right elbow Qualifiers: Encounter type: initial encounter Qualified Code(s): S51.011A - Laceration without foreign body of right elbow, initial encounter Discharge Date/Time: 08/21/18 20:39 Interventions: ED Discharge Assessment Last Done: 08/21/18 20:30 Instructions: DI for Open Laceration Activity Restrictions/Additional Instructions: Laceration to right elbow area will need to heal by secondary intention at this point. Change dressing as instructed daily to the wound follow up with wound Care Clinic call the number at number [phone] to schedule follow-up appointment. Use [id number] Tylenol or Motrin as needed for any discomfort. For any worsening symptoms return emergency room. May use sling for comfort and support Prescriptions: No Action omeprazole 40 MG capsule,delayed release(DR/EC) 40 mg Qty: 0 RF: 0 tamsulosin [Flomax] 0.4 MG capsule,extended release 24hr 0.4 mg PO DAILY Qty: 0 RF: 0 gabapentin 600 mg tablet 600 mg PO BID PRN (Reason: unknown) RF: 0 alprazolam 0.25 mg tablet 0.25 mg PO BID PRN (Reason: Anxiety) RF: 0 trazodone 100 mg tablet 100 mg PO BEDTIME RF: 0 testosterone cypionate 200 mg/mL oil 1 ml IM Q2W RF: 0 duloxetine 60 mg capsule,delayed release(DR/EC) 60 mg PO DAILY RF: 0 chlordiazepoxide HCl 25 mg capsule See Rx Instructions .ROUTE .COMPLEX Qty: 31 RF: 0 Referrals: Oh Hall [Primary Care Provider] - <Drew Tinoco DO - Last Filed: 08/22/18 00:22> Cosign ED Attending Tylerature Attestation: I was immediately available in the department for consultation. Documentation has been reviewed. I agree with assessment and plan.
[2018-08-21 20:30] VITALS: BP 118/80; PULSE 82; RESP 16; O2SAT 98
--- NOTE | 2018-08-21 20:30 | PC.NURSE ---
Wet to dry dressing applied to right elbow. Applied sling. Pt tolerated well
== END 2018-08-21 20:39 | disposition home or self-care (01) ==
PROVIDERS: Emergency Provider Nurse Practitioner Family; PCP Internal Medicine
DX: S51.011D Laceration without foreign body of right elbow, subsequent encounter (principal)
CPT/HCPCS: 36591; 83605; 84145; 85025; 99283

== ENCOUNTER → 2018-08-24 13:31 | Outpatient (CLI) | payer MEDICARE, OTHER, SELFPAY | PROVIDERS: PCP Internal Medicine; Visit Provider Family Medicine | DX: S51.001A Unspecified open wound of right elbow, initial encounter (principal); L03.113 Cellulitis of right upper limb | CPT/HCPCS: 11042; 11045; 87070; 87075; 87077; 87147; 87186; 87205; 99203; 99213 ==

== ENCOUNTER → 2018-08-26 11:00 | Outpatient (CLI) | payer MEDICARE, OTHER, SELFPAY | PROVIDERS: PCP Student in an Organized Health Care Education/Training Program; Visit Provider Family Medicine | DX: S51.001A Unspecified open wound of right elbow, initial encounter (principal) | CPT/HCPCS: 99212 ==

== ENCOUNTER → 2018-08-30 13:19 | Outpatient (CLI) | payer MEDICARE, OTHER, SELFPAY | PROVIDERS: PCP Student in an Organized Health Care Education/Training Program; Visit Provider Family Medicine | DX: S51.001A Unspecified open wound of right elbow, initial encounter (principal); L03.113 Cellulitis of right upper limb | CPT/HCPCS: 11042; 11045; 97605 ==

== ENCOUNTER → 2018-09-01 10:30 | Outpatient (CLI) | payer MEDICARE, OTHER, SELFPAY | PROVIDERS: PCP Student in an Organized Health Care Education/Training Program; Visit Provider Family Medicine | DX: S51.001A Unspecified open wound of right elbow, initial encounter (principal) | CPT/HCPCS: 97605 ==

== ENCOUNTER → 2018-09-03 14:59 | Outpatient (CLI) | payer MEDICARE, OTHER, SELFPAY | PROVIDERS: PCP Student in an Organized Health Care Education/Training Program; Visit Provider Family Medicine | DX: S51.001A Unspecified open wound of right elbow, initial encounter (principal) | CPT/HCPCS: 99213 ==

== ENCOUNTER 2018-09-05 12:30 | Emergency (ER) | payer MEDICARE, OTHER, SELFPAY ==
[2018-09-05 12:43] VITALS: BP 138/69; PULSE 96; RESP 14; TEMP 37.2; O2SAT 97; BMI 37.2
--- NOTE | 2018-09-05 13:56 | PC.NURSE ---
Pt being seen by wound clinic for elbow wound. Has had a wound vac for about a week. States Wound vac fell off last night. Didn't have any dressing supplies. has been open to air. Dressing applied to wound in triage about an hour ago. When dressing was removed, Dressing wet with serous drainage.
--- NOTE | 2018-09-05 14:48 | ED_ITS ---
HPI - Wound/Laceration General Chief Complaint: Wound/Laceration Stated Complaint: Wound Vac came off Time Seen by Provider: 09/05/18 13:59 Source: patient Mode of arrival: ambulatory Limitations: no limitations History of Present Illness HPI narrative: Patient is a 63-year-old male who presents with right elbow wound VAC problem. He actually fell and injured his elbow 08/13/2018. He has since been seen by wound care and wound VAC has been placed. He thinks he bumped it on a door something in the wound VAC fell off last night. He is scheduled to see wound care again tomorrow for a change. He has no fever no redness no gross pus from the area. Related Data Home Medications Medication Instructions Recorded Confirmed omeprazole 40 mg #0 04/10/17 tamsulosin [Flomax] 0.4 mg PO DAILY #0 04/10/17 08/13/18 alprazolam 0.25 mg PO BID PRN 08/13/18 08/13/18 duloxetine 60 mg PO DAILY 08/13/18 08/13/18 gabapentin 600 mg PO BID PRN 08/13/18 08/13/18 testosterone cypionate 1 ml IM Q2W 08/13/18 08/13/18 trazodone 100 mg PO BEDTIME 08/13/18 08/13/18 Previous Rx's Medication Instructions Recorded chlordiazepoxide HCl See Rx Instructions .ROUTE 08/13/18 .COMPLEX #31 cap Allergies Allergy/AdvReac Type Severity Reaction Status Date / Time hydrochlorothiazide Allergy Severe Anaphylaxis Verified 09/05/18 12:43 [HYDROCHLOROTHIAZIDE] lisinopril [LISINOPRIL] Allergy Severe Anaphylaxis Verified 09/05/18 12:43 Review of Systems Review of Systems GENERAL: Denies chills,fever HEENT: Denies throat pain RESPIRATORY: Denies dyspnea, cough, wheezing CARDIOVASCULAR: Denies chest pain, palpitations GASTROINTESTINAL: Denies nausea, vomiting MUSCULOSKELETAL: Denies extremity pain, injury SKIN: See HPI NEUROLOGIC: Denies weakness, dizziness, headache, numbness 8 point review of systems is negative except for those stated above and HPI PFSH Medical History Alcoholism (Acute) Surgical History 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 (Acute) History of fasciotomy (Acute) Social History household members: none Smoking Status: Never smoker alcohol intake: current Social History household members: none Smoking Status: Never smoker alcohol intake: current Exam Initial Vital Signs Initial Vital Signs: Vital Signs Temperature 98.9 F 09/05/18 12:43 Pulse Rate 96 H 09/05/18 12:43 Respiratory Rate 14 09/05/18 12:43 Blood Pressure 138/69 09/05/18 12:43 Pulse Oximetry 97 09/05/18 12:43 GENERAL: Well-appearing, well-nourished and in no acute distress. CARDIOVASCULAR: peripheral pulses in tact, cap refill <2 sec RESPIRATORY: No respiratory distress, speaks in full sentences without difficulty EXTREMITIES: Normal range of motion, no clubbing or edema. Neurovascularly intact NEUROLOGICAL: Cranial nerves II through XII grossly intact. Normal gait and speech. SKIN: Right elbow open wound tissue is pink and dry no gross drainage, no surr ounding erythema nontender Course Vital Signs - 8 hr 09/05/18 12:43 09/05/18 14:59 Temperature 98.9 F Pulse Rate 96 H 77 Respiratory Rate 14 18 Blood Pressure 138/69 145/78 H Pulse Oximetry 97 99 MDM - Wound/Laceration MDM Narrative Medical decision making narrative: Wound VAC was replaced by nursing. Patient has appointment with wound care tomorrow. Discharge Plan Departure Patient Disposition: Home Clinical Impression: Encounter for management of vacuum-assisted closure (VAC) of wound Elbow wound Qualifiers: Encounter type: subsequent encounter Laterality: right Qualified Code(s): S51.001D - Unspecified open wound of right elbow, subsequent encounter Discharge Date/Time: 09/05/18 15:01 Interventions: ED Discharge Assessment Last Done: 09/05/18 14:59 Instructions: DI for Wound Infection Activity Restrictions/Additional Instructions: *You have been diagnosed with right elbow wound chronic *What to do: Still follow up with wound care tomorrow *Continue to take medications as directed *Follow up with your primary care provider in 2-3 days *Return to ER if you should have any new, worsening or concerning symptoms Prescriptions: No Action omeprazole 40 MG capsule,delayed release(DR/EC) 40 mg Qty: 0 RF: 0 tamsulosin [Flomax] 0.4 MG capsule,extended release 24hr 0.4 mg PO DAILY Qty: 0 RF: 0 gabapentin 600 mg tablet 600 mg PO BID PRN (Reason: unknown) RF: 0 alprazolam 0.25 mg tablet 0.25 mg PO BID PRN (Reason: Anxiety) RF: 0 trazodone 100 mg tablet 100 mg PO BEDTIME RF: 0 testosterone cypionate 200 mg/mL oil 1 ml IM Q2W RF: 0 duloxetine 60 mg capsule,delayed release(DR/EC) 60 mg PO DAILY RF: 0 chlordiazepoxide HCl 25 mg capsule See Rx Instructions .ROUTE .COMPLEX Qty: 31 RF: 0 Referrals: Maria Teresa Talley PA-C [Primary Care Provider] - Ash Araya MD [Physician] -
[2018-09-05 14:59] VITALS: BP 145/78; PULSE 77; RESP 18; O2SAT 99
== END 2018-09-05 15:01 | disposition home or self-care (01) ==
PROVIDERS: Emergency Provider Emergency Medicine; PCP Student in an Organized Health Care Education/Training Program
DX: S51.009D Unspecified open wound of unspecified elbow, subsequent encounter (principal)
CPT/HCPCS: 99282; 99283

== ENCOUNTER → 2018-09-06 14:27 | Outpatient (CLI) | payer MEDICARE, OTHER, SELFPAY | PROVIDERS: PCP Student in an Organized Health Care Education/Training Program; Visit Provider Family Medicine | DX: S51.001A Unspecified open wound of right elbow, initial encounter (principal); L03.113 Cellulitis of right upper limb | CPT/HCPCS: 11042; 11045 ==

== ENCOUNTER → 2018-09-08 10:18 | Outpatient (CLI) | payer MEDICARE, OTHER, SELFPAY | PROVIDERS: PCP Student in an Organized Health Care Education/Training Program; Visit Provider Family Medicine | DX: S51.001A Unspecified open wound of right elbow, initial encounter (principal) | CPT/HCPCS: 97605 ==

== ENCOUNTER → 2018-09-10 13:48 | Outpatient (CLI) | payer MEDICARE, OTHER, SELFPAY | PROVIDERS: PCP Student in an Organized Health Care Education/Training Program; Visit Provider Family Medicine | DX: S51.001A Unspecified open wound of right elbow, initial encounter (principal) | CPT/HCPCS: 11042; 11045; 97606 ==

== ENCOUNTER → 2018-09-17 09:04 | Outpatient (CLI) | payer MEDICARE, OTHER, SELFPAY | PROVIDERS: PCP Student in an Organized Health Care Education/Training Program; Visit Provider Family Medicine | DX: S51.001A Unspecified open wound of right elbow, initial encounter (principal); F10.20 Alcohol dependence, uncomplicated; L03.113 Cellulitis of right upper limb | CPT/HCPCS: 11042; 87070; 87075; 87077; 87147; 87186; 87205; 99214 ==

== ENCOUNTER → 2018-09-24 08:57 | Outpatient (CLI) | payer MEDICARE, OTHER, SELFPAY | PROVIDERS: PCP Student in an Organized Health Care Education/Training Program; Visit Provider Family Medicine | DX: S51.001A Unspecified open wound of right elbow, initial encounter (principal); F10.20 Alcohol dependence, uncomplicated; L03.113 Cellulitis of right upper limb | CPT/HCPCS: 11042; 11045 ==

== ENCOUNTER → 2018-10-01 09:13 | Outpatient (CLI) | payer MEDICARE, OTHER, SELFPAY | PROVIDERS: PCP Student in an Organized Health Care Education/Training Program; Visit Provider Family Medicine | DX: S51.001A Unspecified open wound of right elbow, initial encounter (principal); F10.20 Alcohol dependence, uncomplicated | CPT/HCPCS: 11042; 11045 ==

== ENCOUNTER → 2018-10-04 11:26 | Outpatient (CLI) | payer MEDICARE, OTHER, SELFPAY | PROVIDERS: PCP Student in an Organized Health Care Education/Training Program; Visit Provider Family Medicine | DX: S51.001D Unspecified open wound of right elbow, subsequent encounter (principal) | CPT/HCPCS: 99213 ==

== ENCOUNTER → 2018-10-06 14:32 | Outpatient (CLI) | payer MEDICARE, OTHER, SELFPAY | PROVIDERS: PCP Student in an Organized Health Care Education/Training Program; Visit Provider Family Medicine | DX: S51.001A Unspecified open wound of right elbow, initial encounter (principal); F10.20 Alcohol dependence, uncomplicated | CPT/HCPCS: 17250 ==

== ENCOUNTER → 2018-10-08 10:30 | Outpatient (CLI) | payer MEDICARE, OTHER, SELFPAY | PROVIDERS: PCP Student in an Organized Health Care Education/Training Program; Visit Provider Family Medicine | DX: S51.001A Unspecified open wound of right elbow, initial encounter (principal) | CPT/HCPCS: 11042; 11045; 97605 ==

== ENCOUNTER → 2018-10-11 11:21 | Outpatient (CLI) | payer MEDICARE, OTHER, SELFPAY | PROVIDERS: PCP Student in an Organized Health Care Education/Training Program; Visit Provider Family Medicine | DX: S51.001A Unspecified open wound of right elbow, initial encounter (principal) | CPT/HCPCS: 97605 ==

== ENCOUNTER → 2018-10-13 14:45 | Outpatient (CLI) | payer MEDICARE, OTHER, SELFPAY | PROVIDERS: PCP Student in an Organized Health Care Education/Training Program; Visit Provider Family Medicine | DX: S51.001A Unspecified open wound of right elbow, initial encounter (principal); F10.20 Alcohol dependence, uncomplicated; L03.113 Cellulitis of right upper limb; G47.33 Obstructive sleep apnea (adult) (pediatric); G47.19 Other hypersomnia | CPT/HCPCS: 11042; 87070; 87077; 87147; 87186; 87205; 99214 ==

== ENCOUNTER → 2018-10-22 10:01 | Outpatient (CLI) | payer MEDICARE, OTHER, SELFPAY | PROVIDERS: PCP Student in an Organized Health Care Education/Training Program; Visit Provider Family Medicine | DX: S51.001A Unspecified open wound of right elbow, initial encounter (principal); F10.20 Alcohol dependence, uncomplicated; L03.113 Cellulitis of right upper limb; B95.7 Other staphylococcus as the cause of diseases classified elsewhere | CPT/HCPCS: 11042; 87070; 87075; 87205; 97605; 99213 ==

== ENCOUNTER → 2018-10-25 11:20 | Outpatient (CLI) | payer MEDICARE, OTHER, SELFPAY | PROVIDERS: PCP Student in an Organized Health Care Education/Training Program; Visit Provider Podiatrist Primary Podiatric Medicine | DX: S51.001A Unspecified open wound of right elbow, initial encounter (principal) | CPT/HCPCS: 97605 ==

== ENCOUNTER → 2018-10-27 14:10 | Outpatient (CLI) | payer MEDICARE, OTHER, SELFPAY | PROVIDERS: PCP Student in an Organized Health Care Education/Training Program; Visit Provider Family Medicine | DX: S51.011D Laceration without foreign body of right elbow, subsequent encounter (principal) | CPT/HCPCS: 99213 ==

== ENCOUNTER → 2018-10-29 10:16 | Outpatient (CLI) | payer MEDICARE, OTHER, SELFPAY | PROVIDERS: PCP Student in an Organized Health Care Education/Training Program; Visit Provider Family Medicine | DX: S51.001A Unspecified open wound of right elbow, initial encounter (principal); F10.20 Alcohol dependence, uncomplicated | CPT/HCPCS: 11042 ==

== ENCOUNTER → 2018-11-01 15:28 | Outpatient (CLI) | payer MEDICARE, OTHER, SELFPAY | PROVIDERS: PCP Student in an Organized Health Care Education/Training Program; Visit Provider Family Medicine | DX: S51.001A Unspecified open wound of right elbow, initial encounter (principal); F10.20 Alcohol dependence, uncomplicated; Z91.19 Patient's noncompliance with other medical treatment and regimen | CPT/HCPCS: 17250; 99212 ==

== ENCOUNTER 2018-11-04 13:44 | Emergency (ER) | payer MEDICARE, OTHER, SELFPAY ==
[2018-11-04 13:50] VITALS: BP 131/83; PULSE 81; RESP 18; TEMP 37.1; O2SAT 99
--- NOTE | 2018-11-04 14:07 | PC.NURSE ---
pt states i would never hurt myself or anyone else I asked pt if he uses medication when he's been in detox, he said he currently has xanax for anxiety but has used valium in detox in [place] before.
--- NOTE | 2018-11-04 14:26 | ED.ALCOHOL ---
HPI - Alcohol General Chief Complaint: Toxicology Problem Stated Complaint: Suicidial, alcoholic Time Seen by Provider: 11/04/18 14:09 Source: patient Mode of arrival: ambulatory Limitations: no limitations History of Present Illness HPI narrative: Patient is a 63-year-old male alcoholic well known to this facility and myself presenting by a friend with possible suicidal ideations. The friend states that he told to people that he would commit suicide with a gun. Patient denies suicidal thoughts. He says he would never kill himself he has never been suicidal. Although he is not happy with his life and being an alcoholic and he is not necessarily want to . He does keep a gun by his bedside along with multiple in the state. He actually is requesting detox and rehab. He is cooperative he is willing to get help and here voluntarily. He states that he has a drunk he wants to drink every hour on the hour and frequently does. Starting to run his life and he does not like it. MD complaint: alcohol intoxication Chronic alcohol use: Yes Previous visits for alcohol intoxication: Yes Recent trauma: No Treatments prior to arrival: none Related Data Home Medications Medication Instructions Recorded Confirmed omeprazole 40 mg PO DAILY #0 04/10/17 11/04/18 tamsulosin [Flomax] 0.4 mg PO DAILY #0 04/10/17 11/04/18 alprazolam 0.25 mg PO BID PRN 08/13/18 11/04/18 duloxetine 60 mg PO DAILY 08/13/18 11/04/18 gabapentin 600 mg PO BID PRN 08/13/18 11/04/18 testosterone cypionate 1 ml IM Q2W 08/13/18 11/04/18 trazodone 100 mg PO BEDTIME 08/13/18 11/04/18 Allergies Allergy/AdvReac Type Severity Reaction Status Date / Time hydrochlorothiazide Allergy Severe Anaphylaxis Verified 10/13/18 13:22 [HYDROCHLOROTHIAZIDE] lisinopril [LISINOPRIL] Allergy Severe Anaphylaxis Verified 10/13/18 13:22 Review of Systems Review of Systems ROS Unobtainable: All systems reviewed & are unremarkable except as noted in HPI and below Eyes Denies change in vision, Denies eye discharge, Denies irritation and Denies loss of vision ENT Ears, Nose, Mouth, and Throat: Denies change in voice, Denies neck pain and Denies sore throat Cardiovascular Denies chest pain, Denies irregular heart rhythm, Denies lightheadedness, Denies palpitations, Denies dyspnea, Denies dyspnea on exertion and Denies orthopnea Respiratory Denies cough, Denies dyspnea, Denies dyspnea on exertion and Denies wheezing Gastrointestinal Gastrointestinal: Denies abdominal pain, Denies change in bowel habits, Denies diarrhea, Denies nausea and Denies vomiting Genitourinary Denies hematuria, Denies flank pain, Denies urinary incontinence and Denies urinary urgency Musculoskeletal Denies neck pain Neurologic Denies loss of vision Psychiatric Reports as per HPI Endocrine Denies palpitations Allergic/Immunologic Denies wheezing [facility] Social History household members: none Smoking Status: Never smoker alcohol intake: current Exam Initial Vital Signs Initial Vital Signs: Vital Signs Temperature 98.8 F 11/04/18 13:50 Pulse Rate 81 11/04/18 13:50 Respiratory Rate 18 11/04/18 13:50 Blood Pressure 131/83 11/04/18 13:50 Pulse Oximetry 99 11/04/18 13:50 GENERAL: Cooperative male and in [no acute] distress. HEENT: Head atraumatic,EOMI, pupils reactive CARDIOVASCULAR: Regular rate and rhythm without murmurs, rubs or gallops. RESPIRATORY: Breath sounds equal bilaterally, no wheezes rales or rhonchi. ABDOMEN: Soft, nontender. Normoactive bowel sounds all 4 quadrants. No guarding or rebound. EXTREMITIES: Normal range of motion, no clubbing or edema. Neurovascularly intact NEUROLOGICAL: Alert and oriented x4.Normal gait and speech. Cranial nerves II through XII grossly intact. SKIN: Warm, dry, no laceration, no petechiae, no rashes or lesions. Chronic wound of right elbow actually appears to be healing. He states that the wound VAC was taken off because the tubing it kept getting caught. Course Orders Ordered: ED Orders 11/04/18 14:38 Complete Blood Count AUTO DIFF Stat Comprehensive Metabolic Panel Stat Ethanol (ETOH) Stat Thyroid Stimulating Hormone Stat 11/04/18 14:50 Urine Drug Screen, Rapid Stat Urine Microscopic Stat Vital Signs - 8 hr 11/04/18 13:50 11/04/18 16:38 11/04/18 17:49 Temperature 98.8 F Pulse Rate 81 91 H Respiratory Rate 18 16 18 Blood Pressure 131/83 147/74 H Blood Pressure [Right Arm] 135/71 Pulse Oximetry 99 99 100 MDM - Alcohol Lab Data Attestation: I reviewed the patient's lab results. Result diagrams: 11/04/18 14:38 11/04/18 14:38 Labs: Lab Results 11/04/18 11/04/18 11/04/18 Range/Units 14:38 14:38 14:38 WBC 1.6 L* (4.5-11.0) X10^3/uL RBC 4.09 L (4.5-5.9) X10^6/uL Hgb 10.4 L (13.5-17.5) g/dL Hct 33.5 L (41-53) % MCV 81.9 (80-100) fL MCH 25.5 L (26-34) PG MCHC 31.2 (30-36) % RDW 23.9 H (11.6-14.8) % Plt Count 126 L (150-400) X10^3/uL Neut % (Auto) Not Reportable Lymph % (Auto) Not Reportable [place] % (Auto) Not Reportable Eos % (Auto) Not Reportable Baso % (Auto) Not Reportable Lymph # (Auto) Not Reportable [place] # (Auto) Not Reportable Baso # (Auto) Not Reportable Total Counted 100 Seg Neutrophils % 19.0 L (38-70) % Band Neutrophils % 1.0 L (3-7) % Lymphocytes % (Manual) 66.0 H (25-45) % Atypical Lymphs % 3.0 H ( - 0) % Monocytes % (Manual) 5.0 (2-11) % Eosinophils % (Manual) 4.0 (2-4) % Basophils % (Manual) 2.0 H (0-1) % Neutrophils # (Manual) 320 L (6093-1690) /uL RBC Morphology Not Reportable Hypochromasia 2+ H Poikilocytosis 1+ H Target Cells 2+ H Sodium 144 (137-145) mmol/L Potassium 4.1 (3.4-5.1) mmol/L Chloride 104 (98-107) mmol/L Carbon Dioxide 28 (22-32) mmol/L BUN 18 (9-20) mg/dL Creatinine 0.70 (0.66-1.25) mg/dL Estimated GFR > 60.0 (>60) mL/min BUN/Creatinine Ratio 25.7 H (6-22) Glucose 100 (80-110) mg/dL Calcium 8.4 (8.4-10.2) mg/dL Total Bilirubin 0.7 (0.2-1.3) mg/dL AST 120 H (17-59) IU/L ALT 52 (21-72) IU/L Alkaline Phosphatase 163 H (38-126) U/L Total Protein 7.3 (6.3-8.2) g/dL Albumin 3.7 (3.5-5.0) g/dL Globulin 3.6 (1.7-4.1) g/dL Albumin/Globulin Ratio 1.0 (1.0-2.8) TSH 1.26 (0.47-4.68) uIU/mL Urine RBC (0-5/HPF) Urine WBC (0-5/HPF) Ur Squamous Epith Cells (0-5/HPF) Urine Bacteria (None) Ur Culture Indicated? Urine Opiates Screen (Negative) Ur Oxycodone Screen (Negative) Urine Methadone Screen (Negative) Ur Barbiturates Screen (Negative) U Tricyclic Antidepress (Negative) Ur Phencyclidine Scrn (Negative) Ur Amphetamines Screen (Negative) U Methamphetamines Scrn (Negative) Ur MDMA Scrn (Ecstasy) (Negative) U Benzodiazepines Scrn (Negative) Urine Cocaine Screen (Negative) U Marijuana (THC) Screen (Negative) Ethyl Alcohol 379 mg/dL 11/04/18 11/04/18 Range/Units 14:50 14:50 WBC (4.5-11.0) X10^3/uL RBC (4.5-5.9) X10^6/uL Hgb (13.5-17.5) g/dL Hct (41-53) % MCV (80-100) fL MCH (26-34) PG MCHC (30-36) % RDW (11.6-14.8) % Plt Count (150-400) X10^3/uL Neut % (Auto) Lymph % (Auto) [place] % (Auto) Eos % (Auto) Baso % (Auto) Lymph # (Auto) [place] # (Auto) Baso # (Auto) Total Counted Seg Neutrophils % (38-70) % Band Neutrophils % (3-7) % Lymphocytes % (Manual) (25-45) % Atypical Lymphs % ( - 0) % Monocytes % (Manual) (2-11) % Eosinophils % (Manual) (2-4) % Basophils % (Manual) (0-1) % Neutrophils # (Manual) (3658-9294) /uL RBC Morphology Hypochromasia Poikilocytosis Target Cells Sodium (137-145) mmol/L Potassium (3.4-5.1) mmol/L Chloride (98-107) mmol/L Carbon Dioxide (22-32) mmol/L BUN (9-20) mg/dL Creatinine (0.66-1.25) mg/dL Estimated GFR (>60) mL/min BUN/Creatinine Ratio (6-22) Glucose (80-110) mg/dL Calcium (8.4-10.2) mg/dL Total Bilirubin (0.2-1.3) mg/dL AST (17-59) IU/L ALT (21-72) IU/L Alkaline Phosphatase (38-126) U/L Total Protein (6.3-8.2) g/dL Albumin (3.5-5.0) g/dL Globulin (1.7-4.1) g/dL Albumin/Globulin Ratio (1.0-2.8) TSH (0.47-4.68) uIU/mL Urine RBC 0-1/hpf (0-5/HPF) Urine WBC 0-1/hpf (0-5/HPF) Ur Squamous Epith Cells 0-1 /hpf (0-5/HPF) Urine Bacteria None seen (None) Ur Culture Indicated? Cult not indicated Urine Opiates Screen Negative (Negative) Ur Oxycodone Screen Negative (Negative) Urine Methadone Screen Negative (Negative) Ur Barbiturates Screen Negative (Negative) U Tricyclic Antidepress Negative (Negative) Ur Phencyclidine Scrn Negative (Negative) Ur Amphetamines Screen Negative (Negative) U Methamphetamines Scrn Negative (Negative) Ur MDMA Scrn (Ecstasy) Negative (Negative) U Benzodiazepines Scrn Negative (Negative) Urine Cocaine Screen Negative (Negative) U Marijuana (THC) Screen Negative (Negative) Ethyl Alcohol mg/dL Urine Dip Bedside Urine Glucose Negative Bedside Urine Bilirubin - Negative Bedside Urine Ketone + 15 Urine Specific [place] 1.020 Bedside Urine Occult Blood +/- Bedside Urine pH 6.0 Bedside Urine Protein +/- 15 Bedside Urine Urobilinogen 1+ 2mg Bedside Urine Nitrite - Negative Bedside Urine Leukocytes - Negative Esterase MDM Narrative Medical decision making narrative: Patient is noted to be leukopenic he has previously had a low white count but never this low. He is afebrile. I do not believe this to be an infectious cause at this time. Possibly from alcoholism. A dialysis social worker down to evaluate patient. Patient is not in voluntary at this time discussed the safety plan. [facility]waiting bed for placement at crisis Center. The bed will likely be available at 6:00 p.m.. 5:30 p.m. patient is requesting to leave. Stating that he is not suicidal. That hit due to his right elbow and chronic wound he has appointments with [facility] needs to take care of that. He has grandchildren and children he wants to live for. He recognizes that he needs to make some changes in his life. We discussed how to block his guns away and gives a castellanos to someone else in order to help keep him safe. Patient agrees and understands. He again denies any suicidal ideations. Discharge Plan Departure Patient Disposition: Home Clinical Impression: Alcohol intoxication Qualifiers: Complication of substance-induced condition: uncomplicated Qualified Code(s): F10.920 - Alcohol use, unspecified with intoxication, uncomplicated Discharge Date/Time: 11/04/18 17:50 Interventions: ED Discharge Assessment Last Done: 11/04/18 17:49 Instructions: DI for Alcohol Abuse Activity Restrictions/Additional Instructions: *You have been diagnosed with alcohol intoxication *What to do: Recommend locking all guns away and giving face he to someone else If you are feeling suicidal or having suicidal thoughts: Call: Suicide Hotline: Visit: www.[employer].org Text: 369211 *Continue to take medications as directed *Follow up with your primary care provider in 2-3 days *Return to ER if you should have thoughts of suicide, reviewed or any new, worsening or concerning symptoms Prescriptions: No Action omeprazole 40 MG capsule,delayed release(DR/EC) 40 mg PO DAILY Qty: 0 RF: 0 tamsulosin [Flomax] 0.4 MG capsule,extended release 24hr 0.4 mg PO DAILY Qty: 0 RF: 0 gabapentin 600 mg tablet 600 mg PO BID PRN (Reason: unknown) RF: 0 alprazolam 0.25 mg tablet 0.25 mg PO BID PRN (Reason: Anxiety) RF: 0 trazodone 100 mg tablet 100 mg PO BEDTIME RF: 0 testosterone cypionate 200 mg/mL oil 1 ml IM Q2W RF: 0 duloxetine 60 mg capsule,delayed release(DR/EC) 60 mg PO DAILY RF: 0 Referrals: Alcohol [facility] [Outside] Alcohol [facility] [Outside] Maria Teresa Talley PA-C [Primary Care Provider] -
[2018-11-04 14:47] LABS: Hematocrit 33.5 % (41-53); Hemoglobin 10.4 g/dL (13.5-17.5); Mean Corpuscular HGB Conc 31.2 % (30-36); Mean Corpuscular Hemoglobin 25.5 PG (26-34); Mean Corpuscular Volume 81.9 fL (80-100); Platelet Count 126 X10^3/uL (150-400); Red Blood Cell Count 4.09 X10^6/uL (4.5-5.9); Red Cell Distribution Width 23.9 % (11.6-14.8)
[2018-11-04 14:49] LABS: Add Manual Diff / Slide Review YES; White Blood Cell Count 1.6 X10^3/uL (4.5-11.0)
[2018-11-04 14:58] LABS: Alanine Aminotransferase 52 IU/L (21-72); Albumin 3.7 g/dL (3.5-5.0); Alkaline Phosphatase 163 U/L (38-126); Aspartate Aminotransferase 120 IU/L (17-59); BUN Creatinine Ratio 25.7 (6-22); Bilirubin Total 0.7 mg/dL (0.2-1.3); Blood Urea Nitrogen 18 mg/dL (9-20); Calcium 8.4 mg/dL (8.4-10.2); Carbon Dioxide 28 mmol/L (22-32); Chloride 104 mmol/L (98-107); Estimated Glomerular Filt Rate > 60.0 mL/min (>60); Globulin 3.6 g/dL (1.7-4.1); Glucose 100 mg/dL (80-110); HEMOLYSIS < 15 (0-50); Potassium 4.1 mmol/L (3.4-5.1); Sodium 144 mmol/L (137-145); Total Protein 7.3 g/dL (6.3-8.2)
[2018-11-04 15:05] LABS: Ethanol (ETOH) 379 mg/dL
[2018-11-04 15:07] LABS: Urine Amphetamines Negative (Negative); Urine Barbiturates Negative (Negative); Urine Benzodiazepines Negative (Negative); Urine Cocaine Negative (Negative); Urine MDMA Negative (Negative); Urine Methadone Negative (Negative); Urine Methamphetamines Negative (Negative); Urine Morphine/Opi cutoff 2000 Negative (Negative); Urine Oxycodone Negative (Negative); Urine Phencyclidine Negative (Negative); Urine Tetrahydrocannabinol Negative (Negative); Urine Tricyclic Antidepressant Negative (Negative)
[2018-11-04 15:14] LABS: Neutrophils Absolute Manual 320 /uL (3000-5900); Target Cells 2+; Total Cells Counted 100
[2018-11-04 15:15] LABS: Hypochromasia 2+; Poikilocytosis 1+
[2018-11-04 15:36] LABS: Thyroid Stimulating Hormone 1.26 uIU/mL (0.47-4.68)
[2018-11-04 16:10] LABS: Bacteria Urine None Seen
[2018-11-04 16:23] LABS: Culture Indicated Urine Cult Not Indicated; RBC Urine 0-1/HPF (0-5/HPF); Squamous Epithelial Cell Urine 0-1 /HPF (0-5/HPF); WBC Urine 0-1/HPF (0-5/HPF)
--- NOTE | 2018-11-04 16:26 | CM.SWNOTE ---
Consult requested for this 63 yo resident of [place], brought in by his friend/roommate after threatening suicide while drinking. According to ED staff, friend also quite tremulous. Spoke w/Calderon briefly. He explained he was slowly sobering up. He denies h/o suicidal ideation or homicidal ideation or attempt at suicide. He denies current SI. He admits to drinking approx 750-1000 MLs of hard alcohol daily and has been drinking heavily for many years w/ multiple failed attempts at sobriety. Calderon is willing to attempt detox and resource referral at [facility] this evening if a bed becomes available. This SENIOR OCCUPATIONAL THERAPIST relayed this to ED nursing staff. This SENIOR OCCUPATIONAL THERAPIST also encouraged Calderon to consider [facility] for intensive outpt treatment and counseling. Calderon does not drive often so would need to find a cab or Uber ride to and from treatment. 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 He denies wanting to ever use them to hurt himself or others. He calls himself not a violent man. This SENIOR OCCUPATIONAL THERAPIST attempted to explain what alcohol does in changing a person's thoughts, emotions and actions, Calderon understands although denies the need to remove firearms from his house. Finally, strongly encouraged Calderon to take the following steps: -Get to detox bed and follow treatment recommendations -Remove all alcohol from home -Remove people from his life that drink heavily or like to libertarian w/him -Go to ongoing addiction counseling Dr Jason updated. YADI Ngo
--- NOTE | 2018-11-04 16:37 | PC.NURSE ---
wound to right elbow dressed with bacitracin, nonadherent dressing, karlos, and netting. pt being followed and cared for at wound care. pt's next appt next week.
[2018-11-04 16:38] VITALS: BP 135/71; RESP 16; O2SAT 99
[2018-11-04 17:49] VITALS: BP 147/74; PULSE 91; RESP 18; O2SAT 100
== END 2018-11-04 17:50 | disposition home or self-care (01) ==
PROVIDERS: Emergency Provider Emergency Medicine; PCP Student in an Organized Health Care Education/Training Program
DX: F10.920 Alcohol use, unspecified with intoxication, uncomplicated (principal)
CPT/HCPCS: 36415; 80053; 80305; 80320; 81003; 81015; 84443; 85025; 99283

== ENCOUNTER → 2018-11-10 13:02 | Outpatient (CLI) | payer MEDICARE, OTHER, SELFPAY | PROVIDERS: PCP Student in an Organized Health Care Education/Training Program; Visit Provider Family Medicine | DX: S51.001A Unspecified open wound of right elbow, initial encounter (principal) | CPT/HCPCS: 76882; 87070; 87075; 87205 ==

== ENCOUNTER → 2018-11-10 14:24 | Outpatient (CLI) | payer MEDICARE, OTHER, SELFPAY ==
--- NOTE | 2018-11-10 | DI.US.S_ITS ---
PROCEDURE: US EXTREMELY NONVASC UPPER RT INDICATIONS: Unspecified open wound of right elbow TECHNIQUE: Real-time scanning was performed of the posterior lower right humerus., with image documentation. COMPARISON: None. FINDINGS: 6.7 x 3.4 x 5.4 cm region of heterogeneity in shadowing involving the posterior glenohumeral soft tissues. IMPRESSION: 6.7 x 3.4 x 5.4 cm region of heterogeneity with strong acoustic shadowing which could be related to gas but an abscess cannot be excluded. Differential would also include soft tissue foreign body. Recommend clinical correlation and if indicated CT could be performed for further assessment. Dictated by: Papo MOLINA Interpreted: Regan Becerril MD on 11/10/2018 at 15:36 Approved by: Regan Becerril M.D. on 11/10/2018 at 18:31
== END ==
PROVIDERS: PCP Student in an Organized Health Care Education/Training Program; Visit Provider Family Medicine
DX: S51.001A Unspecified open wound of right elbow, initial encounter (principal); L03.113 Cellulitis of right upper limb
CPT/HCPCS: 76882

== ENCOUNTER 2018-11-10 16:25 | Emergency (ER) | payer MEDICARE, OTHER, SELFPAY ==
[2018-11-10 16:30] VITALS: BP 123/75; PULSE 68; RESP 18; TEMP 36.4; O2SAT 98
--- NOTE | 2018-11-10 16:40 | DI.RAD.S_ITS ---
PROCEDURE: XR CHEST 1V INDICATIONS: suspected sepsis TECHNIQUE: One view of the chest was acquired. COMPARISON: [facility], CR, XR CHEST 2V, 05/28/2018, 10:34. FINDINGS: Surgical changes and devices: None. Lungs and pleura: Lungs are clear. No pleural effusions or pneumothorax. Mediastinum: Mediastinal contours appear normal. Heart size is normal. Bones and chest wall: No suspicious bony lesions. Overlying soft tissues appear unremarkable. Chronic left rib fracture with callus formation. IMPRESSION: No acute disease or interval change. Dictated by: Elvin Mcintyre M.D. on 11/10/2018 at 16:07 Approved by: Elvin Mcintyre M.D. on 11/10/2018 at 16:09
--- NOTE | 2018-11-10 18:57 | ED.EXTPRO ---
HPI - Extremity Problem General Chief complaint: Extremity Problem,Nontraumatic Stated complaint: RT ELBOW NEEDS DRAIN Time Seen by Provider: 11/10/18 18:57 Source: patient Mode of arrival: ambulatory Limitations: no limitations History of Present Illness HPI Narrative: Patient is a 63-year-old male who was sent over by the wound care clinic for a CT scan of his right elbow for concerns of a possible abscess. This concern was brought up based on particular findings on an ultrasound that was performed earlier today. Patient reports no fevers. No pain with moving the elbow. He also has a known alcoholic. He states that his last drink was last evening. He is wishing for medications to help him detox at home. Related Data Home Medications Medication Instructions Recorded Confirmed omeprazole 40 mg PO DAILY #0 04/10/17 11/04/18 tamsulosin [Flomax] 0.4 mg PO DAILY #0 04/10/17 11/04/18 alprazolam 0.25 mg PO BID PRN 08/13/18 11/04/18 duloxetine 60 mg PO DAILY 08/13/18 11/04/18 gabapentin 600 mg PO BID PRN 08/13/18 11/04/18 testosterone cypionate 1 ml IM Q2W 08/13/18 11/04/18 trazodone 100 mg PO BEDTIME 08/13/18 11/04/18 Previous Rx's Medication Instructions Recorded lorazepam [Ativan] 1 mg PO Q2-3H PRN #10 tab 11/10/18 Allergies Allergy/AdvReac Type Severity Reaction Status Date / Time hydrochlorothiazide Allergy Severe Anaphylaxis Verified 10/13/18 13:22 [HYDROCHLOROTHIAZIDE] lisinopril [LISINOPRIL] Allergy Severe Anaphylaxis Verified 10/13/18 13:22 Review of Systems Constitutional Denies fever(s) and Denies headache(s) ENT Ears, Nose, Mouth, and Throat: Denies headache(s) Cardiovascular Denies chest pain and Denies dyspnea Respiratory Denies dyspnea Gastrointestinal Gastrointestinal: Denies abdominal pain, Denies nausea and Denies vomiting Musculoskeletal Denies arthralgias Integumentary/Breasts Comments: Wound to the right elbow with swelling around the right elbow Neurologic Denies headache(s) and Denies paresthesias Hematologic/Lymphatic Denies easy bleeding and Denies easy bruising [facility] Medical History Alcoholism (Acute) Social History household members: none Smoking Status: Never smoker alcohol intake: current Exam Initial Vital Signs Initial Vital Signs: Vital Signs Temperature 97.5 F L 11/10/18 16:30 Pulse Rate 68 11/10/18 16:30 Respiratory Rate 18 11/10/18 16:30 Blood Pressure 123/75 11/10/18 16:30 Pulse Oximetry 98 11/10/18 16:30 Const General: cooperative, well developed, well groomed and No acute distress Orientation: alert, awake and oriented x3 HENMT Head: normal to inspection and normocephalic Resp Effort & Inspection: normal respiratory effort Auscultation: clear to auscultation bilaterally Cardio Rate: regular rate Rhythm: regular rhythm Pulses: radial pulses present Skin Other: Patient with a area of what appears to be healing granulation to the outside of the right elbow. He does have redness around the right elbow however does not warm to the touch. No drainage. Neuro General: alert, awake and oriented x3 Cognition: normal cognition Speech: speech normal Gait: normal gait Extrem Other: Patient with full range of motion of the right shoulder and right elbow without any discomfort. Able to pronate and supinate to the right arm without any problems. Psych Appearance: grossly normal and well kempt Course Orders Ordered: ED Orders 11/10/18 16:40 XR chest 1V Stat 11/10/18 18:58 CT UE RT w con Stat 11/10/18 19:30 Complete Blood Count AUTO DIFF Stat Comprehensive Metabolic Panel Stat Ethanol (ETOH) Stat Lactate (Lactic Acid) Stat Lipase Stat Partial Thromboplastin Time Stat Procalcitonin Stat Prothrombin Time INR Stat 11/10/18 19:57 Blood Culture Stat 11/10/18 20:00 Urine Drug Screen, Rapid Stat Discontinued Medications Sodium Chloride (Normal Saline 0.9%) 1,000 mls @ 1,000 mls/hr IV BOLUS ONE Stop: 11/10/18 17:39 Last Admin: 11/10/18 16:47 Dose: Not Given Sodium Chloride (Normal Saline 0.9%) 1,000 mls @ 1,000 mls/hr IV BOLUS ONE Stop: 11/10/18 17:40 Last Infusion: 11/10/18 21:09 Dose: 1,000 mls/hr Admin: 11/10/18 20:00 Dose: 1,000 mls/hr Lorazepam (Ativan) 2 mg PO NOW ONE Stop: 11/10/18 16:43 Last Admin: 11/10/18 21:02 Dose: 2 mg Lorazepam (Ativan) 2 mg PO NOW ONE Stop: 11/10/18 22:46 Last Admin: 11/10/18 22:45 Dose: 2 mg Vital Signs - 8 hr 11/10/18 20:53 11/10/18 22:40 Pulse Rate 84 99 H Respiratory Rate 19 14 Blood Pressure [Left Arm] 130/76 124/75 Pulse Oximetry 94 98 MDM - Extremity (Nontraumatic) Lab Data Attestation: I reviewed the patient's lab results. Result diagrams: 11/10/18 19:30 11/10/18 19:30 Lab Results 11/10/18 11/10/18 11/10/18 Range/Units 19:30 19:30 19:30 WBC 1.9 L* (4.5-11.0) X10^3/uL RBC 3.96 L (4.5-5.9) X10^6/uL Hgb 10.0 L (13.5-17.5) g/dL Hct 31.3 L (41-53) % MCV 79.1 L (80-100) fL MCH 25.4 L (26-34) PG MCHC 32.1 (30-36) % RDW 24.7 H (11.6-14.8) % Plt Count 63 L (150-400) X10^3/uL Neut % (Auto) Not Reportable Lymph % (Auto) Not Reportable [place] % (Auto) Not Reportable Eos % (Auto) Not Reportable Baso % (Auto) Not Reportable Lymph # (Auto) Not Reportable [place] # (Auto) Not Reportable Baso # (Auto) Not Reportable Total Counted 50 Seg Neutrophils % 50.0 (38-70) % Band Neutrophils % 2.0 L (3-7) % Lymphocytes % (Manual) 30.0 (25-45) % Atypical Lymphs % 2.0 H ( - 0) % Monocytes % (Manual) 16.0 H (2-11) % Neutrophils # (Manual) 988 L (4647-8297) /uL Platelet Estimate Decreased on smear RBC Morphology See below Hypochromasia 2+ H Poikilocytosis 1+ H Anisocytosis 2+ H Microcytosis 1+ H Target Cells 1+ H PT 12.6 (10.1-12.7) SECONDS INR 1.1 (0.9-1.3) APTT 29 (26.4-36.2) SECONDS Sodium (137-145) mmol/L Potassium (3.4-5.1) mmol/L Chloride (98-107) mmol/L Carbon Dioxide (22-32) mmol/L BUN (9-20) mg/dL Creatinine (0.66-1.25) mg/dL Estimated GFR (>60) mL/min BUN/Creatinine Ratio (6-22) Glucose (80-110) mg/dL Lactate (0.7-2.1) mmol/L Calcium (8.4-10.2) mg/dL Total Bilirubin (0.2-1.3) mg/dL AST (17-59) IU/L ALT (21-72) IU/L Alkaline Phosphatase (38-126) U/L Total Protein (6.3-8.2) g/dL Albumin (3.5-5.0) g/dL Globulin (1.7-4.1) g/dL Albumin/Globulin Ratio (1.0-2.8) Lipase (23-300) U/L Procalcitonin 0.13 (<0.5) ng/mL Urine Opiates Screen (Negative) Ur Oxycodone Screen (Negative) Urine Methadone Screen (Negative) Ur Barbiturates Screen (Negative) U Tricyclic Antidepress (Negative) Ur Phencyclidine Scrn (Negative) Ur Amphetamines Screen (Negative) U Methamphetamines Scrn (Negative) Ur MDMA Scrn (Ecstasy) (Negative) U Benzodiazepines Scrn (Negative) Urine Cocaine Screen (Negative) U Marijuana (THC) Screen (Negative) Ethyl Alcohol mg/dL 11/10/18 11/10/18 11/10/18 Range/Units 19:30 19:30 19:30 WBC (4.5-11.0) X10^3/uL RBC (4.5-5.9) X10^6/uL Hgb (13.5-17.5) g/dL Hct (41-53) % MCV (80-100) fL MCH (26-34) PG MCHC (30-36) % RDW (11.6-14.8) % Plt Count (150-400) X10^3/uL Neut % (Auto) Lymph % (Auto) [place] % (Auto) Eos % (Auto) Baso % (Auto) Lymph # (Auto) [place] # (Auto) Baso # (Auto) Total Counted Seg Neutrophils % (38-70) % Band Neutrophils % (3-7) % Lymphocytes % (Manual) (25-45) % Atypical Lymphs % ( - 0) % Monocytes % (Manual) (2-11) % Neutrophils # (Manual) (0761-8299) /uL Platelet Estimate RBC Morphology Hypochromasia Poikilocytosis Anisocytosis Microcytosis Target Cells PT (10.1-12.7) SECONDS INR (0.9-1.3) APTT (26.4-36.2) SECONDS Sodium 135 L (137-145) mmol/L Potassium 4.3 (3.4-5.1) mmol/L Chloride 98 (98-107) mmol/L Carbon Dioxide 28 (22-32) mmol/L BUN 21 H (9-20) mg/dL Creatinine 0.70 (0.66-1.25) mg/dL Estimated GFR > 60.0 (>60) mL/min BUN/Creatinine Ratio 30.0 H (6-22) Glucose 110 (80-110) mg/dL Lactate 1.8 (0.7-2.1) mmol/L Calcium 8.6 (8.4-10.2) mg/dL Total Bilirubin 1.6 H (0.2-1.3) mg/dL AST 115 H (17-59) IU/L ALT 42 (21-72) IU/L Alkaline Phosphatase 225 H (38-126) U/L Total Protein 6.9 (6.3-8.2) g/dL Albumin 3.3 L (3.5-5.0) g/dL Globulin 3.6 (1.7-4.1) g/dL Albumin/Globulin Ratio 0.9 L (1.0-2.8) Lipase 282 (23-300) U/L Procalcitonin (<0.5) ng/mL Urine Opiates Screen (Negative) Ur Oxycodone Screen (Negative) Urine Methadone Screen (Negative) Ur Barbiturates Screen (Negative) U Tricyclic Antidepress (Negative) Ur Phencyclidine Scrn (Negative) Ur Amphetamines Screen (Negative) U Methamphetamines Scrn (Negative) Ur MDMA Scrn (Ecstasy) (Negative) U Benzodiazepines Scrn (Negative) Urine Cocaine Screen (Negative) U Marijuana (THC) Screen (Negative) Ethyl Alcohol < 10 mg/dL 11/10/18 Range/Units 20:00 WBC (4.5-11.0) X10^3/uL RBC (4.5-5.9) X10^6/uL Hgb (13.5-17.5) g/dL Hct (41-53) % MCV (80-100) fL MCH (26-34) PG MCHC (30-36) % RDW (11.6-14.8) % Plt Count (150-400) X10^3/uL Neut % (Auto) Lymph % (Auto) [place] % (Auto) Eos % (Auto) Baso % (Auto) Lymph # (Auto) [place] # (Auto) Baso # (Auto) Total Counted Seg Neutrophils % (38-70) % Band Neutrophils % (3-7) % Lymphocytes % (Manual) (25-45) % Atypical Lymphs % ( - 0) % Monocytes % (Manual) (2-11) % Neutrophils # (Manual) (4973-4315) /uL Platelet Estimate RBC Morphology Hypochromasia Poikilocytosis Anisocytosis Microcytosis Target Cells PT (10.1-12.7) SECONDS INR (0.9-1.3) APTT (26.4-36.2) SECONDS Sodium (137-145) mmol/L Potassium (3.4-5.1) mmol/L Chloride (98-107) mmol/L Carbon Dioxide (22-32) mmol/L BUN (9-20) mg/dL Creatinine (0.66-1.25) mg/dL Estimated GFR (>60) mL/min BUN/Creatinine Ratio (6-22) Glucose (80-110) mg/dL Lactate (0.7-2.1) mmol/L Calcium (8.4-10.2) mg/dL Total Bilirubin (0.2-1.3) mg/dL AST (17-59) IU/L ALT (21-72) IU/L Alkaline Phosphatase (38-126) U/L Total Protein (6.3-8.2) g/dL Albumin (3.5-5.0) g/dL Globulin (1.7-4.1) g/dL Albumin/Globulin Ratio (1.0-2.8) Lipase (23-300) U/L Procalcitonin (<0.5) ng/mL Urine Opiates Screen Negative (Negative) Ur Oxycodone Screen Negative (Negative) Urine Methadone Screen Negative (Negative) Ur Barbiturates Screen Negative (Negative) U Tricyclic Antidepress Negative (Negative) Ur Phencyclidine Scrn Negative (Negative) Ur Amphetamines Screen Negative (Negative) U Methamphetamines Scrn Negative (Negative) Ur MDMA Scrn (Ecstasy) Negative (Negative) U Benzodiazepines Scrn Positive H (Negative) Urine Cocaine Screen Negative (Negative) U Marijuana (THC) Screen Positive H (Negative) Ethyl Alcohol mg/dL Imaging Data CT scan elbow: Radiologist's impression: [address] [address] [address] Scan Report Signed Patient: Zacarias Webster EMR#: [id number] : 3Acct:[id number] Age/Sex: 63 / MDate of Service: 11/10/18 Loc: ED Accession Number: [id number] Procedure: CT UE RT w con Ordering Provider: Marcello Recinos D.O. PROCEDURE: CT UE RT W CON INDICATIONS: possible right elbow abscess TECHNIQUE: 1 mm axial sections acquired through the right elbow joint, with coronal and sagittal reformats. COMPARISON: [facility], CR, XR ELBOW RT MIN 3V, 08/13/2018, 4:34. [facility], CT, CT ABDOMEN PELVIS W CON, 08/13/2018, 5:23. [facility], CT, HEAD WITHOUT CONTRAST, 04/10/2017, 19:03. FINDINGS: Image quality: Exam is severely degraded by mottle and noise artifact, obscuring nearly all anatomic detail. Bones: Old healed anterolateral right rib fracture deformities noted. There is cortical irregularity of the proximal ulna (axial image 173 of series 2) concerning for age-indeterminate fracture Soft tissues: There is a 2.8 cm irregular soft tissue calcification posterior to the right elbow/distal right humeral metaphysis. Artifact degrades evaluation such that a soft tissue fluid collection cannot be excluded on this exam. IMPRESSION: 1. Limited exam. Exam is severely degraded by mottle and noise artifact, obscuring nearly all anatomic detail. Consider right elbow MRI versus repeat CT if there is continued clinical concern, versus targeted elbow ultrasound for soft tissue evaluation. 2. Cortical irregularity of the proximal ulna is concerning for age-indeterminate fracture; correlation with point tenderness recommended to exclude acute fracture. 3. 2.8 cm irregular soft tissue calcification posterior to the right elbow/distal right humeral metaphysis, likely representing the calcified sequela of prior soft tissue injury. Dictated by: Jose Luis Griffith M.D. on 11/10/2018 at 22:13 Approved by: Jose Luis Griffith M.D. on 11/10/2018 at 22:30 ECG Data Attestation EKG: I personally reviewed and interpreted this ECG as follows: Prior ECG tracings: not available for review Interpretation: Sinus rhythm Ventricular rate 89 First degree AV block with a P our interval 222 milliseconds Normal QRS Normal QTC Normal axis No ST T wave changes MDM Narrative Medical decision making narrative: Patient is afebrile. He does have leukopenia but has been leukopenic in the past. I suspect this is secondary to his alcoholism. Patient has full range of motion of the right elbow. He does have some redness around the right elbow however it is not warm to the touch. Low suspicion for a septic joint. The CT scan today with severely degraded by motion artifact. Unable to make a definitive statement regarding whether not the structure that was seen is an abscess. Given the fact he does not have a fever, his procalcitonin was negative, lactate was negative, fact that he is very little if any of discomfort around the right elbow I feel that starting the patient on antibiotics in this case is not warranted despite the fact that the CT scan was severely degraded we are unable to obtain another 1 currently because he just received IV contrast for the for CT scan. Informed patient that he does need follow-up within the next 24 hours. Informed him that he could return here to the emergency department or go to the wound care or go to his primary provider. He was given strict return precautions. We did discuss his alcohol use. Patient denied the offer for us to set up inpatient treatment. He has been inpatient treatment multiple times in the past. Will send home with Camila. He stated that he would follow up within the next 24 hours or sooner if his symptoms worsen. His EKG was ordered because he had a very short run of what appeared to be sinus tachycardia with a rate in the 150s. He was moving at this time. The rate return to normal before this could be captured on the EKG. On the monitor does appear to be sinus rhythm. Discharge Plan Departure Patient Disposition: Home Clinical Impression: Effusion, right elbow, Alcohol abuse Leukopenia Qualifiers: Leukopenia type: unspecified Qualified Code(s): D72.819 - Decreased white blood cell count, unspecified Discharge Date/Time: 11/10/18 23:15 Interventions: ED Discharge Assessment Last Done: 11/10/18 23:15 Instructions: Alcohol Use Disorder Activity Restrictions/Additional Instructions: You do need follow-up within the next 24 hours for re-evaluation of your right elbow. This can be done here in the emergency department or with your primary provider or with a continuing education specialist. I also recommend you contact your primary provider to discuss your alcohol use. No driving for the next 24 hours or in the future if you decide to partake in intoxicating substances. Prescriptions: New lorazepam [Ativan] 1 mg tablet 1 mg PO Q2-3H PRN (Reason: alcohol withdrawal) Qty: 10 RF: 0 No Action omeprazole 40 MG capsule,delayed release(DR/EC) 40 mg PO DAILY Qty: 0 RF: 0 tamsulosin [Flomax] 0.4 MG capsule,extended release 24hr 0.4 mg PO DAILY Qty: 0 RF: 0 gabapentin 600 mg tablet 600 mg PO BID PRN (Reason: unknown) RF: 0 alprazolam 0.25 mg tablet 0.25 mg PO BID PRN (Reason: Anxiety) RF: 0 trazodone 100 mg tablet 100 mg PO BEDTIME RF: 0 testosterone cypionate 200 mg/mL oil 1 ml IM Q2W RF: 0 duloxetine 60 mg capsule,delayed release(DR/EC) 60 mg PO DAILY RF: 0 Referrals: Maria Teresa Talley PA-C [Primary Care Provider] -
[2018-11-10 19:54] LABS: Hematocrit 31.3 % (41-53); Mean Corpuscular HGB Conc 32.1 % (30-36); Mean Corpuscular Hemoglobin 25.4 PG (26-34); Mean Corpuscular Volume 79.1 fL (80-100); Platelet Count 63 X10^3/uL (150-400); Red Blood Cell Count 3.96 X10^6/uL (4.5-5.9); Red Cell Distribution Width 24.7 % (11.6-14.8)
[2018-11-10 19:56] LABS: Add Manual Diff / Slide Review YES; White Blood Cell Count 1.9 X10^3/uL (4.5-11.0)
[2018-11-10 20:00] LABS: INR 1.1 (0.9-1.3); Prothrombin Time 12.6 SECONDS (10.1-12.7)
[2018-11-10] MEDS: SODIUM CHLORIDE 0.9% 1,000 ML 1000 ML IV (20:00)
--- NOTE | 2018-11-10 20:00 | PC.NURSE ---
Pt states was seen at wound clinic earlier today and sent here for CT of his right elbow due to abscess concerns related to an US done earlier today. Pt denies pain or fevers, has full ROM present in right extremity. PT is also seeking help with detoxing from alcohol and medications to assist him with tappering off alcohol at home. Pt has history of etoh abuse and treatment for alcohol withdraw and abuse.
[2018-11-10 20:02] LABS: PTT Partial Thromboplastin Tim 29 SECONDS (26.4-36.2)
[2018-11-10 20:08] LABS: Alanine Aminotransferase 42 IU/L (21-72); Albumin 3.3 g/dL (3.5-5.0); Albumin Globulin Ratio 0.9 (1.0-2.8); Alkaline Phosphatase 225 U/L (38-126); Aspartate Aminotransferase 115 IU/L (17-59); Bilirubin Total 1.6 mg/dL (0.2-1.3); Blood Urea Nitrogen 21 mg/dL (9-20); Calcium 8.6 mg/dL (8.4-10.2); Carbon Dioxide 28 mmol/L (22-32); Chloride 98 mmol/L (98-107); Estimated Glomerular Filt Rate > 60.0 mL/min (>60); Ethanol (ETOH) < 10 mg/dL; Globulin 3.6 g/dL (1.7-4.1); Glucose 110 mg/dL (80-110); HEMOLYSIS < 15 (0-50); Lactate (Lactic Acid) 1.8 mmol/L (0.7-2.1); Lipase 282 U/L (23-300); Potassium 4.3 mmol/L (3.4-5.1); Sodium 135 mmol/L (137-145); Total Protein 6.9 g/dL (6.3-8.2)
[2018-11-10 20:14] LABS: Urine Amphetamines Negative (Negative); Urine Barbiturates Negative (Negative); Urine Benzodiazepines Positive (Negative); Urine Cocaine Negative (Negative); Urine MDMA Negative (Negative); Urine Methadone Negative (Negative); Urine Methamphetamines Negative (Negative); Urine Morphine/Opi cutoff 2000 Negative (Negative); Urine Oxycodone Negative (Negative); Urine Phencyclidine Negative (Negative); Urine Tetrahydrocannabinol Positive (Negative); Urine Tricyclic Antidepressant Negative (Negative)
[2018-11-10 20:18] LABS: Microcytosis 1+; Neutrophils Absolute Manual 988 /uL (3000-5900); Platelet Estimate Decreased on smear; Total Cells Counted 50
[2018-11-10 20:19] LABS: Anisocytosis 2+; Hypochromasia 2+; Target Cells 1+
[2018-11-10 20:20] LABS: Poikilocytosis 1+
[2018-11-10 20:25] LABS: Procalcitonin 0.13 ng/mL (<0.5)
[2018-11-10 20:53] VITALS: BP 130/76; PULSE 84; RESP 19; O2SAT 94
[2018-11-10] MEDS: LORazepam 0.5 MG TABLET 2 MG PO ×2 (21:02→22:45)
[2018-11-10 22:40] VITALS: BP 124/75; PULSE 99; RESP 14; O2SAT 98
== END 2018-11-10 23:15 | disposition home or self-care (01) ==
PROVIDERS: Nurse Practitioner Family; Emergency Provider Emergency Medicine; PCP Student in an Organized Health Care Education/Training Program
DX: M25.421 Effusion, right elbow (principal); F10.10 Alcohol abuse, uncomplicated; R00.0 Tachycardia, unspecified; S51.001A Unspecified open wound of right elbow, initial encounter
CPT/HCPCS: 11042; 11045; 36415; 36591; 71045; 73201; 76882; 80053; 80305; 80320; 83605; 83690; 84145; 85025; 85610; 85730; 87040; 87070; 87075; 87077; 87205; 93005; 96360; 99214; 99283; 99285; Q9967

== ENCOUNTER → 2018-11-12 09:43 | Outpatient (CLI) | payer MEDICARE, OTHER, SELFPAY | PROVIDERS: PCP Student in an Organized Health Care Education/Training Program; Visit Provider Family Medicine | DX: S51.001A Unspecified open wound of right elbow, initial encounter (principal); L03.113 Cellulitis of right upper limb | CPT/HCPCS: 99213; 99214 ==

== ENCOUNTER → 2018-11-16 11:18 | Outpatient (CLI) | payer MEDICARE, OTHER, SELFPAY | PROVIDERS: PCP Student in an Organized Health Care Education/Training Program; Visit Provider Family Medicine | DX: S51.001A Unspecified open wound of right elbow, initial encounter (principal) | CPT/HCPCS: 11042; 97607 ==

== ENCOUNTER → 2018-11-30 13:49 | Outpatient (CLI) | payer MEDICARE, OTHER, SELFPAY | PROVIDERS: PCP Student in an Organized Health Care Education/Training Program; Visit Provider Family Medicine | DX: S51.001A Unspecified open wound of right elbow, initial encounter (principal) | CPT/HCPCS: 11042; 97607 ==

== ENCOUNTER → 2018-12-07 10:20 | Outpatient (CLI) | payer MEDICARE, OTHER, SELFPAY | PROVIDERS: PCP Student in an Organized Health Care Education/Training Program; Visit Provider Family Medicine | DX: S51.001A Unspecified open wound of right elbow, initial encounter (principal); F10.20 Alcohol dependence, uncomplicated; Z91.19 Patient's noncompliance with other medical treatment and regimen | CPT/HCPCS: 11042; 87070; 87205; 99214 ==

== ENCOUNTER → 2018-12-13 09:15 | Outpatient (CLI) | payer MEDICARE, OTHER, SELFPAY | PROVIDERS: PCP Student in an Organized Health Care Education/Training Program; Visit Provider Podiatrist Primary Podiatric Medicine | DX: S51.001D Unspecified open wound of right elbow, subsequent encounter (principal) | CPT/HCPCS: 99213 ==

== ENCOUNTER → 2018-12-21 13:14 | Outpatient (CLI) | payer MEDICARE, OTHER, SELFPAY | PROVIDERS: PCP Student in an Organized Health Care Education/Training Program; Visit Provider Family Medicine | DX: S51.001A Unspecified open wound of right elbow, initial encounter (principal) | CPT/HCPCS: 11042 ==

== ENCOUNTER 2019-01-04 16:52 | Emergency (ER) | payer MEDICARE, OTHER, SELFPAY ==
[2019-01-04 18:00] VITALS: BP 127/78; PULSE 90; RESP 14; TEMP 36.8; O2SAT 99
[2019-01-04] MEDS: diazePAM 10 MG/2 ML SYRINGE 5 MG IM (19:24)
--- NOTE | 2019-01-04 19:30 | ED_ITS ---
HPI - Alcohol General Chief Complaint: Toxicology Problem Stated Complaint: wound check, alcohol detox Time Seen by Provider: 01/04/19 18:00 Source: patient Mode of arrival: ambulatory Limitations: no limitations History of Present Illness HPI narrative: 63-year-old male nonsmoker with extensive alcohol history presents with a chief complaint of requesting help withdrawing from alcohol. He has a longstanding history of heavy drinking and has had multiple attempts detox and rehab. Patient states that he drinks about a 5th of liquor daily and his last drink was a few hours ago. He states he has had withdrawal symptoms in the past but never seizures. His current symptoms include mild agitation and some resting tremors. He denies headache or auditory or visual hallucinations. He denies any chest pain or shortness of breath and denies any abdominal pain, nausea or sweating. MD complaint: alcohol withdrawal Last drink: just prior to this admission Amount of alcohol consumed: 1/5th daily Chronic alcohol use: Yes Previous visits for alcohol intoxication: Yes Recent trauma: No Treatments prior to arrival: none Related Data Home Medications Medication Instructions Recorded Confirmed omeprazole 40 mg PO DAILY #0 04/10/17 11/04/18 tamsulosin [Flomax] 0.4 mg PO DAILY #0 04/10/17 11/04/18 alprazolam 0.25 mg PO BID PRN 08/13/18 11/04/18 duloxetine 60 mg PO DAILY 08/13/18 11/04/18 gabapentin 600 mg PO BID PRN 08/13/18 11/04/18 testosterone cypionate 1 ml IM Q2W 08/13/18 11/04/18 trazodone 100 mg PO BEDTIME 08/13/18 11/04/18 Previous Rx's Medication Instructions Recorded lorazepam [Ativan] 1 mg PO Q2-3H PRN #10 tab 11/10/18 lorazepam [Ativan] See Rx Instructions .ROUTE 01/04/19 .COMPLEX PRN #19 tab Allergies Allergy/AdvReac Type Severity Reaction Status Date / Time hydrochlorothiazide Allergy Severe Anaphylaxis Verified 10/13/18 13:22 [HYDROCHLOROTHIAZIDE] lisinopril [LISINOPRIL] Allergy Severe Anaphylaxis Verified 10/13/18 13:22 Review of Systems Constitutional Denies chills, Denies fever(s), Denies lethargy and Denies weakness Eyes Denies change in vision, Denies eye discharge, Denies irritation and Denies loss of vision ENT Ears, Nose, Mouth, and Throat: Denies change in voice, Denies neck pain and Denies sore throat Cardiovascular Denies chest pain, Denies irregular heart rhythm, Denies lightheadedness, Denies palpitations, Denies dyspnea, Denies dyspnea on exertion and Denies orthopnea Respiratory Denies cough, Denies dyspnea, Denies dyspnea on exertion and Denies wheezing Gastrointestinal Gastrointestinal: Denies abdominal pain, Denies change in bowel habits, Denies diarrhea, Denies nausea and Denies vomiting Genitourinary Denies hematuria, Denies flank pain, Denies urinary incontinence and Denies urinary urgency Musculoskeletal Denies neck pain Integumentary/Breasts Denies pruritus, Denies erythema, Denies rash and Denies wounds Neurologic Denies confusion, Denies loss of vision and Denies weakness Psychiatric Denies anxiety, Denies confusion, Denies depression, Denies homicidal ideation and Denies suicidal ideation Comments: agitation Endocrine Denies palpitations Hematologic/Lymphatic Denies easy bruising Allergic/Immunologic Denies wheezing FOR[facility]LY [facility] Medical History Alcoholism (Acute) Surgical History 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 Normocephalic. No temporal or scalp tenderness. EYES: Pupils equal round and reactive. Extraocular motions intact. No scleral icterus. No injection or drainage. ENT: Nose without bleeding, purulent drainage or septal hematoma. Throat without erythema, tonsillar hypertrophy or exudate. Uvula midline. Airway patent. NECK: Trachea midline. No JVD or lymphadenopathy. Supple, nontender, no meningeal signs. CARDIOVASCULAR: Regular rate and rhythm without murmurs, gallops, or rubs. RESPIRATORY: Clear to auscultation. Breath sounds equal bilaterally. No wheezes, rales, or rhonchi. GASTROINTESTINAL: Abdomen soft, non-tender, nondistended. No hepato-splen omegaly, or palpable masses. No guarding. EXTREMITIES: Mild tremor with arms extended No clubbing, cyanosis, or edema. No joint tenderness, effusion, or edema noted. BACK: Nontender without deformity or crepitance. No flank tenderness. NEURO: AOx3. SKIN: No rash or erythema. Initial Vital Signs Initial Vital Signs: Vital Signs Temperature 98.2 F 01/04/19 18:00 Pulse Rate 90 01/04/19 18:00 Respiratory Rate 14 01/04/19 18:00 Blood Pressure 127/78 01/04/19 18:00 Pulse Oximetry 99 01/04/19 18:00 Scores ABCD2 Citation: [facility] for Alcohol Withdrawal from [facility] [employer] on 01/05/2019 All calculations should be rechecked by clinician prior to use RESULT SUMMARY: 6 points Patients with scores ?8 typically do not require medication for withdrawal. INPUTS: Nausea/vomiting ?> 0 = No nausea and no vomiting Tremor ?> 4 = Moderate, with patient's arms extended Paroxysmal sweats ?> 0 = No sweat visible Anxiety ?> 0 = No anxiety, at ease Agitation ?> 2 = (More severe symptoms) Tactile disturbances ?> 0 = None Auditory disturbances ?> 0 = Not present Visual disturbances ?> 0 = Not present Headache/fullness in head ?> 0 = Not Present Orientation/clouding of sensorium ?> 0 = Oriented, can do serial additions Course Orders Ordered: Discontinued Medications Diazepam (Valium) 5 mg IM NOW ONE Stop: 01/04/19 19:08 Last Admin: 01/04/19 19:24 Dose: 5 mg Lorazepam (Ativan) 2 mg PO NOW ONE Stop: 01/04/19 19:55 Last Admin: 01/04/19 20:01 Dose: 2 mg Vital Signs - 8 hr 01/04/19 18:00 Temperature 98.2 F Pulse Rate 90 Respiratory Rate 14 Blood Pressure 127/78 Pulse Oximetry 99 MDM - Alcohol MDM Narrative Medical decision making narrative: 63-year-old with extensive alcohol history presents with early withdrawal symptoms, mild CIWA score and no delirium. He has full capacity and good insight. He is given Valium intramuscular and Ativan here, he remains alert and oriented, speaking clearly and ambulating with a steady gait. He has good support and is given return precautions. Discharge Plan Departure Patient Disposition: Home Clinical Impression: Alcohol withdrawal syndrome Qualifiers: Complication of substance-induced condition: uncomplicated Qualified Code(s): F10.230 - Alcohol dependence with withdrawal, uncomplicated Discharge Date/Time: 01/04/19 20:07 Interventions: ED Discharge Assessment Last Done: 01/04/19 20:06 Instructions: DI for Alcohol Abuse, DI for Drug or Alcohol Withdrawal Activity Restrictions/Additional Instructions: *You have been diagnosed with [alcohol withdrawal syndrome] *What to do: *Take medications as directed *Follow up with your primary care provider in 2-3 days, call for an appointment. Let them know you were seen in the Emergency Department and that we ask that you be seen in follow up *Return to ER if you should have any new, worsening or concerning symptoms Prescriptions: New lorazepam [Ativan] 1 mg tablet See Rx Instructions .ROUTE .COMPLEX PRN (Reason: alcohol withdrawal) Qty: 19 RF: 0 No Action omeprazole 40 MG capsule,delayed release(DR/EC) 40 mg PO DAILY Qty: 0 RF: 0 tamsulosin [Flomax] 0.4 MG capsule,extended release 24hr 0.4 mg PO DAILY Qty: 0 RF: 0 gabapentin 600 mg tablet 600 mg PO BID PRN (Reason: unknown) RF: 0 alprazolam 0.25 mg tablet 0.25 mg PO BID PRN (Reason: Anxiety) RF: 0 trazodone 100 mg tablet 100 mg PO BEDTIME RF: 0 testosterone cypionate 200 mg/mL oil 1 ml IM Q2W RF: 0 duloxetine 60 mg capsule,delayed release(DR/EC) 60 mg PO DAILY RF: 0 lorazepam [Ativan] 1 mg tablet 1 mg PO Q2-3H PRN (Reason: alcohol withdrawal) Qty: 10 RF: 0 Referrals: Maria Teresa Talley PA-C [Primary Care Provider] -
--- NOTE | 2019-01-04 19:37 | PC.NURSE ---
Spoke w/ Marium Burgess RN from [facility]. She states there is a form that can be sent to [facility] for pt's who are in need of financial assistance. Spoke w/ Sury who knows of the program but states there is a form that has to come from . Requested that [facility] Mgt follow up with patient tomorrow to ensure that medications were able to get filled.
[2019-01-04] MEDS: LORazepam 0.5 MG TABLET 2 MG PO (20:01)
--- NOTE | 2019-01-05 16:11 | CM.DPC ---
Spoke with patient, he took his prescription to [facility] and had it filled today. Feeling much better at present. Denies offer to help with Detox at this time.
== END 2019-01-04 20:07 | disposition home or self-care (01) ==
PROVIDERS: Emergency Provider Emergency Medicine; PCP Student in an Organized Health Care Education/Training Program
DX: F10.230 Alcohol dependence with withdrawal, uncomplicated (principal)
CPT/HCPCS: 96372; 99282; 99283; J3360

== ENCOUNTER → 2019-04-28 12:38 | Outpatient (CLI) | payer MEDICARE, OTHER, SELFPAY | PROVIDERS: PCP Student in an Organized Health Care Education/Training Program; Visit Provider Student in an Organized Health Care Education/Training Program | DX: E29.1 Testicular hypofunction (principal); Z87.891 Personal history of nicotine dependence | CPT/HCPCS: 77080 ==

== ENCOUNTER → 2019-07-28 15:11 | Outpatient (CLI) | payer MEDICARE, OTHER, SELFPAY ==
[2019-07-28 16:55] LABS: Hemoglobin A1C% w Est Avg Glu 4.9 % (4.0-6.0)
[2019-07-28 17:01] LABS: Add Manual Diff / Slide Review NO; Basophils Absolute Auto 0 /uL (0-100); Basophils Percent Auto 0.5 % (0-2); Eosinophils Absolute Auto 0 /uL (0-450); Eosinophils Percent Auto 0.3 % (2-4); Hematocrit 39.6 % (41-53); Hemoglobin 12.6 g/dL (13.5-17.5); Lymphocytes Absolute Auto 800 /uL (1100-4500); Lymphocytes Percent Auto 13.1 % (25-40); Mean Corpuscular HGB Conc 31.8 % (30-36); Mean Corpuscular Hemoglobin 25.1 PG (26-34); Monocytes Absolute Auto 600 /uL (0-900); Monocytes Percent Auto 10.3 % (3-14); Neutrophils Absolute Auto 4700 /uL (1500-7000); Neutrophils Percent Auto 75.8 % (50-75); Platelet Count 227 X10^3/uL (150-400); Red Blood Cell Count 5.02 X10^6/uL (4.5-5.9); Red Cell Distribution Width 29.5 % (11.6-14.8); White Blood Cell Count 6.2 X10^3/uL (4.5-11.0)
[2019-07-28 17:15] LABS: Alanine Aminotransferase 16 IU/L (<50); Albumin 3.8 g/dL (3.5-5.0); Alkaline Phosphatase 62 U/L (38-126); Aspartate Aminotransferase 28 IU/L (17-59); BUN Creatinine Ratio 24.3 (6-22); Bilirubin Total 0.8 mg/dL (0.2-1.3); Blood Urea Nitrogen 17 mg/dL (9-20); Calcium 9.5 mg/dL (8.4-10.2); Carbon Dioxide 30 mmol/L (22-32); Chloride 100 mmol/L (98-107); Cholesterol 166 mg/dL (140-199); Estimated Glomerular Filt Rate > 60.0 mL/min (>60); Globulin 3.8 g/dL (1.7-4.1); Glucose 106 mg/dL (80-110); HDL Cholesterol 76 mg/dL (40-60); HEMOLYSIS < 15 (0-50); Iron 48 ug/dL (49-181); LDL Cholesterol Calculated 80 mg/dL (<100); Potassium 4.5 mmol/L (3.4-5.1); Sodium 138 mmol/L (137-145); Total Protein 7.6 g/dL (6.3-8.2); Triglycerides 48 mg/dL (35-150)
[2019-07-28 17:23] LABS: Percent Iron Saturation 16 % (20-50); Total Iron Binding Capacity 299 ug/dL (261-462); Transferrin 232 mg/dL (206-381)
[2019-07-28 17:25] LABS: Hypochromasia 2+; Microcytosis 2+; Polychromasia 1+
[2019-07-28 17:26] LABS: Target Cells 2+
[2019-07-28 17:44] LABS: TSH w/ Reflex to FT4 1.35 uIU/mL (0.47-4.68)
[2019-07-28 17:48] LABS: Ferritin 23.6 ng/mL (17.9-464)
[2019-07-28 18:18] LABS: Vitamin B12 525 pg/mL (239-931)
[2019-07-30 14:50] LABS: Ceruloplasmin 28 mg/dL (18-36)
[2019-07-30 14:54] LABS: Folate, RBC 616 ng/mL RBC (> 280)
[2019-07-30 15:15] LABS: Parathyroid Hormone Int 39 pg/mL (14-64)
[2019-07-30 17:35] LABS: Zinc 48 mcg/dL (60-130)
[2019-07-31 16:15] LABS: Vitamin A 45 mcg/dL (38-98)
[2019-08-01 08:45] LABS: Vitamin B1 212 nmol/L (78-185)
--- NOTE | 2019-08-22 09:41 | ONC.MSW ---
Description: Initial Referral Navigation Reason for Referral: Anemia Activity: Reviewed referral for acuity, medical status and immediate needs. Forwarded to scheduling for next available initial consult time.
== END ==
PROVIDERS: PCP Student in an Organized Health Care Education/Training Program; Referring Provider Nurse Practitioner Family; Visit Provider Nurse Practitioner Family
DX: K91.2 Postsurgical malabsorption, not elsewhere classified (principal)
CPT/HCPCS: 36415; 80053; 80061; 82306; 82390; 82525; 82607; 82728; 82747; 83036; 83540; 83550; 83970; 84425; 84443; 84590; 84630; 85025

== ENCOUNTER → 2019-10-10 13:12 | Outpatient (CLI) | payer MEDICARE, OTHER, SELFPAY ==
--- NOTE | 2019-10-10 | DI.US.S_ITS ---
PROCEDURE: US ABDOMEN COMPLETE INDICATIONS: ALCLHOL DEPENDENCE, ELEV LFT'S TECHNIQUE: Real-time scanning was performed of the abdominal and retroperitoneal organs, with image documentation. COMPARISON: [facility], CT, CT ABDOMEN PELVIS W CON, 08/13/2018, 5:23. FINDINGS: Liver: The liver is enlarged measuring 20.6 cm with steatosis. Nodules present measuring approximately 17 x 16 mm. Gallbladder: Gallbladder demonstrates multiple areas of increased echogenicity. Gallbladder wall thickness is within normal limits measuring 2.6 mm Biliary ducts: Intrahepatic bile ducts are non-dilated. Extrahepatic bile duct caliber measures 5.3 mm. Normal is 6-7 mm or less in diameter, or 10 mm or less post-cholecystectomy. Pancreas: Visualized portions of the pancreas are sonographically normal. Spleen: Spleen is normal in size and homogeneous in echotexture. Kidneys: Kidneys are normal in size and echotexture. Right kidney measures 11.1 cm long; left kidney measures 11.7 cm long. No hydronephrosis or nephrolithiasis. No solid masses. Septated cyst is noted within the left kidney measuring 39 x 40 x 38 mm. Aorta: Visualized aorta is normal in caliber at less than 3 cm. Iliacs: Proximal common iliac arteries are not well seen. IVC: Intrahepatic inferior vena cava is patent. Miscellaneous: No free abdominal fluid. IMPRESSION: 1. Cholelithiasis without imaging evidence of cholecystitis. 2. Hepatic steatosis with focal area nodularity as above. It is indeterminate on the basis of this exam as to the etiology of the nodule. While this could represent a hemangioma, it is considered indeterminate. CT or MRI with hepatic protocol is recommended. Dictated by: Victorina Olea M.D. on 10/10/2019 at 16:24 Approved by: Victorina Olea M.D. on 10/10/2019 at 16:26
== END ==
PROVIDERS: PCP Student in an Organized Health Care Education/Training Program; Referring Provider Student in an Organized Health Care Education/Training Program; Visit Provider Student in an Organized Health Care Education/Training Program
DX: F10.20 Alcohol dependence, uncomplicated (principal); R74.8 Abnormal levels of other serum enzymes; K76.0 Fatty (change of) liver, not elsewhere classified; K80.20 Calculus of gallbladder without cholecystitis without obstruction
CPT/HCPCS: 76700

== ENCOUNTER → 2019-10-14 11:56 | Outpatient (CLI) | payer MEDICARE, OTHER, SELFPAY ==
[2019-10-14 12:17] LABS: Add Manual Diff / Slide Review NO; Basophils Absolute Auto 100 /uL (0-100); Eosinophils Absolute Auto 100 /uL (0-450); Eosinophils Percent Auto 3.7 % (2-4); Hematocrit 32.6 % (41-53); Hemoglobin 10.7 g/dL (13.5-17.5); Lymphocytes Absolute Auto 1500 /uL (1100-4500); Lymphocytes Percent Auto 43.8 % (25-40); Mean Corpuscular HGB Conc 32.8 % (30-36); Mean Corpuscular Hemoglobin 29.3 PG (26-34); Mean Corpuscular Volume 89.1 fL (80-100); Monocytes Absolute Auto 400 /uL (0-900); Monocytes Percent Auto 12.4 % (3-14); Neutrophils Absolute Auto 1300 /uL (1500-7000); Neutrophils Percent Auto 38.1 % (50-75); Platelet Count 253 X10^3/uL (150-400); Red Blood Cell Count 3.65 X10^6/uL (4.5-5.9); White Blood Cell Count 3.4 X10^3/uL (4.5-11.0)
[2019-10-14 12:46] LABS: Anisocytosis 3+; Poikilocytosis 1+; Polychromasia 1+
[2019-10-14 12:49] LABS: Alanine Aminotransferase 12 IU/L (<50); Albumin 3.2 g/dL (3.5-5.0); Albumin Globulin Ratio 0.9 (1.0-2.8); Alkaline Phosphatase 57 U/L (38-126); Aspartate Aminotransferase 25 IU/L (17-59); BUN Creatinine Ratio 23.2 (6-22); Bilirubin Total 0.3 mg/dL (0.2-1.3); Blood Urea Nitrogen 16 mg/dL (9-20); Calcium 8.7 mg/dL (8.4-10.2); Carbon Dioxide 25 mmol/L (22-32); Chloride 109 mmol/L (98-107); Estimated Glomerular Filt Rate > 60.0 mL/min (>60); Globulin 3.4 g/dL (1.7-4.1); Glucose 101 mg/dL (80-110); HEMOLYSIS < 15 (0-50); Potassium 4.2 mmol/L (3.4-5.1); Sodium 139 mmol/L (137-145); Total Protein 6.6 g/dL (6.3-8.2)
--- NOTE | 2019-10-14 12:50 | DI.CT.S_ITS ---
PROCEDURE: CT ABDOMEN WO/W CON INDICATIONS: Fatty (change of) liver, not elsewhere classified TECHNIQUE: 4 phase scanning was performed. Non-contrast 5 mm axial sections acquired from the diaphragm to the iliac crests. Following the administration of intravenous contrast, 5 mm thick arterial-phase, portal venous-phase, and 5-minute delayed phase images were acquired through the liver. 5 mm thick coronal and sagittal reformats were performed. For radiation dose reduction, the following was used: automated exposure control, adjustment of mA and/or kV according to patient size. COMPARISON: [facility], CT, CT ABDOMEN PELVIS W CON, 08/13/2018, 5:23. [facility], US, US ABDOMEN COMPLETE, 10/10/2019, 13:24. FINDINGS: Image quality: Excellent. Lung bases: Lung bases are clear. Heart size is normal. Liver: Presumed unchanged hemangioma in the region of the gallbladder fossa, for example image 37/5, grossly stable since 08/13/18 Indeterminate hypoattenuating 5 mm focus present in the subcapsular portion of the 4A segment. Adjacent to the fissure, there is a 6 mm hyperdense focus adjacent to falciform ligament, also technically indeterminate Neither of these demonstrate arterial phase enhancement. Other solid organs: Gallbladder contains layering gravel like gallstones and/or sludge. No evidence of active cholecystitis. Biliary system is non dilated. Pancreas is normal in morphology. Spleen is normal in size and enhancement. No adrenal nodules. Both kidneys demonstrate normal size and enhancement, without hydronephrosis or nephrolithiasis. Multiple presumed bilateral renal cysts. Nodes and vessels: No retroperitoneal or mesenteric adenopathy by size criteria. Aorta and inferior vena cava are normal in size. Bowel and peritoneum: Small hiatal hernia and postsurgical changes seen at the GE junction and stomach. No free fluid or air. Colonic diverticulosis is seen without evidence of acute complication. Bones: No suspicious bony lesions. No vertebral body compression fractures. Diffuse spondylytic changes. Prominent anterior spinal ossification Miscellaneous: No ventral hernias. IMPRESSION: Multiple hepatic lesions, some of which demonstrate features suggesting hemangiomas although others are too small to characterize accurately and could be monitored with [address] or ultrasound surveillance Cholelithiasis Additional chronic and incidental findings as above. Dictated by: Elvin Mcintyre M.D. on 10/14/2019 at 16:30 Approved by: Elvin Mcintyre M.D. on 10/14/2019 at 16:41
== END ==
PROVIDERS: PCP Student in an Organized Health Care Education/Training Program; Referring Provider Student in an Organized Health Care Education/Training Program; Visit Provider Student in an Organized Health Care Education/Training Program
DX: K76.0 Fatty (change of) liver, not elsewhere classified (principal); K76.89 Other specified diseases of liver; R74.8 Abnormal levels of other serum enzymes; F10.20 Alcohol dependence, uncomplicated; K44.9 Diaphragmatic hernia without obstruction or gangrene; K57.90 Diverticulosis of intestine, part unspecified, without perforation or abscess without bleeding; K80.20 Calculus of gallbladder without cholecystitis without obstruction
CPT/HCPCS: 36415; 74170; 80053; 85025; Q9967

== ENCOUNTER 2019-11-16 23:28 | Emergency (ER) | payer MEDICARE, OTHER, SELFPAY ==
[2019-11-16 23:30] VITALS: BP 150/73; PULSE 66; RESP 18; TEMP 36.1; O2SAT 92; BMI 38.7
--- NOTE | 2019-11-16 23:47 | DI.CT.S_ITS ---
PROCEDURE: CT ORBIT BI WO CON INDICATIONS: fall, right eye trauma TECHNIQUE: Noncontrast 2.5 mm axial images acquired through the orbits, with coronal and sagittal reformats. For radiation dose reduction, the following was used: automated exposure control, adjustment of mA and/or kV according to patient size. COMPARISON: [facility], CT, CT HEAD/BRAIN WO CON, 11/17/2019, 0:55. FINDINGS: Image quality: Excellent, noncontrast study. Orbits: Globes are symmetrical. No metallic foreign bodies. The optic nerves are normal in size. No retrobulbar masses or fat abnormalities. The extra-ocular muscles are normal and symmetrical in appearance. Lacrimal glands are normal in size. Optic chiasm is not well seen-noncontrast study. Intracranial: Visualized portions of the cerebral hemispheres, brainstem, and spinal cord are normal considering noncontrast evaluation. Bones and sinuses: Visualized calvarium and facial bones appear intact except for slight rightward deviation of the nasal bones anteriorly, with what appears to be prominent nasociliary grooves and superimposed nondisplaced fractures may also be present. Visualized sinuses and mastoids are clear. Previously identified left frontal scalp contusion. IMPRESSION: The study is performed without contrast, and thus is considered a facial bone CT equivalent. No orbital trauma is found. There is a previously identified left frontal scalp contusion, without underlying fracture. The nasal bones bilaterally are very slightly deviated rightward, potentially from prior trauma, but chronicity is uncertain. Minimal chronic appearing posterior right maxillary sinus mucosal thickening, without air-fluid level that would suggest presence of reflux of epistaxis. Dictated by: Rob Leigh M.D. on 11/17/2019 at 8:24 Approved by: Rob Leigh M.D. on 11/17/2019 at 8:27
--- NOTE | 2019-11-16 23:48 | DI.CT.S_ITS ---
PROCEDURE: CT HEAD/BRAIN WO CON INDICATIONS: fall TECHNIQUE: Noncontrast 4.5 mm thick angled axial sections acquired from the foramen magnum to the vertex, with coronal and sagittal reformats. For radiation dose reduction, the following was used: automated exposure control, adjustment of mA and/or kV according to patient size. COMPARISON: [facility], CT, HEAD WITHOUT CONTRAST, 04/10/2017, 19:03. FINDINGS: Image quality: Excellent. CSF spaces: Basal cisterns are patent. No extra-axial fluid collections. Ventricles are normal in size and shape. Brain: No midline shift. No intracranial masses or hemorrhage. Devine-white matter interface is normal. Mild to moderate microvascular atherosclerotic change in the deep white matter each hemisphere Skull and face: Calvarium and visualized facial bones are intact, without suspicious lesions, but there is a left frontal region scalp hematoma, moderate in size. No underlying fracture.. Parotid glandular tissue bilaterally is prominent in size. Sinuses: Visualized sinuses and mastoids are clear. IMPRESSION: No acute trauma flow to the brain or calvarium but there is a left frontal scalp hematoma, moderate in size. No laceration is seen in this area. Uncertain etiology of bilateral parotid gland enlargement, please correlate clinically for chronicity. This would be an unusual sequela of trauma. Dictated by: Rob Leigh M.D. on 11/17/2019 at 8:10 Approved by: Rob Leigh M.D. on 11/17/2019 at 8:12
[2019-11-17 00:22] LABS: Add Manual Diff / Slide Review NO; Basophils Absolute Auto 0 /uL (0-100); Basophils Percent Auto 0.8 % (0-2); Eosinophils Absolute Auto 0 /uL (0-450); Eosinophils Percent Auto 0.4 % (2-4); Hematocrit 38.9 % (41-53); Lymphocytes Absolute Auto 2300 /uL (1100-4500); Lymphocytes Percent Auto 53.3 % (25-40); Mean Corpuscular HGB Conc 33.3 % (30-36); Mean Corpuscular Volume 87.2 fL (80-100); Monocytes Absolute Auto 300 /uL (0-900); Monocytes Percent Auto 6.5 % (3-14); Neutrophils Absolute Auto 1700 /uL (1500-7000); Platelet Count 274 X10^3/uL (150-400); Red Blood Cell Count 4.46 X10^6/uL (4.5-5.9); Red Cell Distribution Width 24.7 % (11.6-14.8); White Blood Cell Count 4.4 X10^3/uL (4.5-11.0)
[2019-11-17 00:25] LABS: Alanine Aminotransferase 14 IU/L (<50); Albumin Globulin Ratio 1.1 (1.0-2.8); Alkaline Phosphatase 69 U/L (38-126); Aspartate Aminotransferase 31 IU/L (17-59); BUN Creatinine Ratio 17.6 (6-22); Bilirubin Total 0.3 mg/dL (0.2-1.3); Blood Urea Nitrogen 13 mg/dL (9-20); Calcium 8.8 mg/dL (8.4-10.2); Carbon Dioxide 30 mmol/L (22-32); Chloride 110 mmol/L (98-107); Estimated Glomerular Filt Rate > 60.0 mL/min (>60); Globulin 3.8 g/dL (1.7-4.1); Glucose 96 mg/dL (80-110); HEMOLYSIS < 15 (0-50); Sodium 146 mmol/L (137-145); Total Protein 7.8 g/dL (6.3-8.2)
[2019-11-17 00:30] LABS: Ethanol (ETOH) 417 mg/dL
[2019-11-17 00:37] LABS: Troponin I < 0.012 ng/mL (0.01-0.034)
[2019-11-17 00:52] VITALS: BP 123/69; PULSE 65; RESP 11; O2SAT 94
[2019-11-17 01:06] LABS: Anisocytosis 2+; Target Cells 1+
[2019-11-17 01:30] VITALS: BP 130/71; PULSE 60; RESP 11; O2SAT 98
--- NOTE | 2019-11-17 03:26 | ED.GENADULT ---
HPI - General Adult General Chief complaint: Toxicology Problem Stated complaint: Intoxication Time Seen by Provider: 11/16/19 23:30 Mode of arrival: EMS History of Present Illness HPI narrative: 64-year-old gentleman with a long history of alcohol use disorder who has not been in contact with his family for a couple of days. They contacted police and asked them to do a welfare check. When medics arrived at the house they found the patient significantly intoxicated and lying on the floor with a new head contusion involving the right forehead and eye. They brought him to the emergency department for further evaluation Related Data Home Medications Medication Instructions Recorded Confirmed duloxetine 60 mg PO DAILY 08/13/18 11/09/19 trazodone 100 mg PO BEDTIME 08/13/18 11/09/19 citalopram 10 mg tablet 10 mg PO DAILY 05/24/19 11/09/19 tamsulosin 0.4 mg capsule 0.8 mg PO DAILY #0 cap 06/23/19 11/09/19 testosterone cypionate 200 mg/mL 200 mg IM Q3W ml 06/23/19 11/09/19 intramuscular oil ascorbic acid (vitamin C) 500 mg 4,000 mg PO DAILY cap 10/11/19 11/09/19 capsule aspirin 81 mg tablet,delayed 81 mg PO DAILY 10/11/19 11/09/19 release calcium gluconate PO DAILY 10/11/19 11/09/19 cholecalciferol (vitamin D3) 25 4,000 unit PO DAILY cap 10/11/19 11/09/19 mcg (1,000 unit) capsule coenzyme Q10 75 mg capsule 75 mg PO DAILY 10/11/19 11/09/19 lactobacillus combination no.8 3 3,000 mmu cells PO DAILY 10/11/19 11/09/19 billion cell capsule magnesium PO 10/11/19 11/09/19 mecobalamin (vitamin B12) 500 mg PO DAILY 10/11/19 11/09/19 melatonin 100 PO BEDTIME PRN 10/11/19 11/09/19 methocarbamol 750 mg tablet 750 mg PO DAILY tab 10/11/19 11/09/19 multivitamin 1 tab PO QAM 10/11/19 11/09/19 naltrexone 50 mg tablet 50 mg PO DAILY 10/11/19 11/09/19 omeprazole 20 mg capsule,delayed 20 mg PO DAILY 10/11/19 11/09/19 release vitamin B complex 1 tab PO DAILY 10/11/19 11/09/19 Previous Rx's Medication Instructions Recorded gabapentin 600 mg tablet 600 mg PO TID #90 tab 11/09/19 Allergies Allergy/AdvReac Type Severity Reaction Status Date / Time hydrochlorothiazide Allergy Severe Anaphylaxis Verified 11/09/19 14:13 [HYDROCHLOROTHIAZIDE] lisinopril [LISINOPRIL] Allergy Severe Anaphylaxis Verified 11/09/19 14:13 Review of Systems Review of Systems Narrative: Review of systems is quite challenging due to his level of intoxication however at this point he is denying fevers, cough, chest pain, vomiting, diarrhea, musculoskeletal pain or any skin changes acutely Patient History Medical History Alcohol use disorder, severe, in early remission (Acute) Alcoholism (Acute) Hypertension (Acute) Major depression (Acute) Surgical History History of fasciotomy (Acute) 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 ) substance use type: does not use Smoking Status: Former smoker alcohol intake frequency: 3 or more drinks per day Substance Use Type: does not use Exam Narrative Exam Narrative: General: Disheveled obese gentleman intoxicated with a contusion to the right forehead HEENT: Moist mucous membranes, proptotic eyes bilaterally with significant subconjunctival hemorrhage in the right eye with contusion around the eye and bloody tears from the eye. Pupils are equal and reactive. He has no pain or limitation with extraocular eye movement. He reports no visual changes or visual disturbances. He also has a hematoma on the left side of his forehead and a smaller hematoma on the occiput. No lacerations. Neck: No JVD, supple Respiratory: Lungs are clear to auscultation, no wheezing no rales no rhonchi. Full and symmetrical air movement Cardiac: Mild tachycardia but Regular rate and rhythm no murmurs no bruits Abdomen: Soft, obese, nontender good bowel tones, no flank pain Skin: Warm and dry, no rashes Neurologic: Intoxicated with slightly slurred speech however, no obvious asymmetries or abnormalities Extremities: Multiple bruises over arms elbows knees lower extremities in various stages of healing Psych: Cooperative, appropriate insight no auditory or visual hallucinations Initial Vital Signs Initial Vital Signs: Vital Signs Temperature 97.0 F L 11/16/19 23:30 Pulse Rate 66 11/16/19 23:30 Respiratory Rate 18 11/16/19 23:30 Blood Pressure 150/73 H 11/16/19 23:30 Pulse Oximetry 92 11/16/19 23:30 Course Orders Ordered: ED Orders 11/16/19 23:43 Comprehensive Metabolic Panel Stat Troponin I Stat 11/16/19 23:47 CT orbit BI wo con Stat Complete Blood Count AUTO DIFF Stat 11/16/19 23:48 CT head/brain wo con Stat EKG-12 Lead Stat 11/16/19 23:49 Ethanol (ETOH) Stat Vital Signs Vital signs: Vital Signs - 8 hr 11/16/19 23:30 11/17/19 00:52 11/17/19 01:30 Temperature 97.0 F L Pulse Rate 66 65 60 Respiratory Rate 18 11 L 11 L Blood Pressure 150/73 H Blood Pressure [Right Arm] 123/69 130/71 Pulse Oximetry 92 94 98 Medical Decision Making Medical Records Medical records reviewed: Yes I reviewed the patient's medical records. Lab Data Lab results reviewed: Yes I reviewed the patient's lab results. Result diagrams: 11/16/19 23:47 11/16/19 23:43 Labs: Lab Results 11/16/19 11/16/19 11/16/19 Range/Units 23:43 23:47 23:49 WBC 4.4 L (4.5-11.0) X10^3/uL RBC 4.46 L (4.5-5.9) X10^6/uL Hgb 13.0 L (13.5-17.5) g/dL Hct 38.9 L (41-53) % MCV 87.2 (80-100) fL MCH 29.0 (26-34) PG MCHC 33.3 (30-36) % RDW 24.7 H (11.6-14.8) % Plt Count 274 (150-400) X10^3/uL Neut % (Auto) 39.0 L (50-75) % Lymph % (Auto) 53.3 H (25-40) % [place] % (Auto) 6.5 (3-14) % Eos % (Auto) 0.4 L (2-4) % Baso % (Auto) 0.8 (0-2) % Neut # (Auto) 1700 (1098-9959) /uL Lymph # (Auto) 2300 (5739-2761) /uL Lea # (Auto) 300 (0-900) /uL Eos # (Auto) 0 (0-450) /uL Baso # (Auto) 0 (0-100) /uL RBC Morphology See below Anisocytosis 2+ H Target Cells 1+ H Sodium 146 H (137-145) mmol/L Potassium 4.0 (3.4-5.1) mmol/L Chloride 110 H (98-107) mmol/L Carbon Dioxide 30 (22-32) mmol/L BUN 13 (9-20) mg/dL Creatinine 0.74 (0.66-1.25) mg/dL Estimated GFR > 60.0 (>60) mL/min BUN/Creatinine Ratio 17.6 (6-22) Glucose 96 (80-110) mg/dL Calcium 8.8 (8.4-10.2) mg/dL Total Bilirubin 0.3 (0.2-1.3) mg/dL AST 31 (17-59) IU/L ALT 14 (<50) IU/L Alkaline Phosphatase 69 (38-126) U/L Troponin I < 0.012 (0.01-0.034) ng/mL Total Protein 7.8 (6.3-8.2) g/dL Albumin 4.0 (3.5-5.0) g/dL Globulin 3.8 (1.7-4.1) g/dL Albumin/Globulin Ratio 1.1 (1.0-2.8) Ethyl Alcohol 417 H* ( - 10) mg/dL Urine Dip Bedside Urine Glucose Negative Bedside Urine Bilirubin - Negative Bedside Urine Ketone - Negative Urine Specific [place] 1.015 Bedside Urine Occult Blood - Negative Bedside Urine pH 6.0 Bedside Urine Protein - Negative Bedside Urine Urobilinogen - Negative Bedside Urine Nitrite - Negative Bedside Urine Leukocytes - Negative Esterase Point of care testing: Urine Dip Bedside Urine Glucose Negative Bedside Urine Bilirubin - Negative Bedside Urine Ketone - Negative Urine Specific [place] 1.015 Bedside Urine Occult Blood - Negative Bedside Urine pH 6.0 Bedside Urine Protein - Negative Bedside Urine Urobilinogen - Negative Bedside Urine Nitrite - Negative Bedside Urine Leukocytes - Negative Esterase Imaging Data CT scan - head: Radiologist's Impression: Chronic involutional volume loss. No acute findings Michael Blanton MD CT orbits: Radiologist's Impression: Unremarkable orbits and temporal bone Chronic right maxillary sinusitis Right periorbital soft tissue swelling and a focal extracranial hematoma over the left frontal bone Michael Blanton MD ECG Data Attestation: I personally reviewed and interpreted this ECG as follows: Interpretation: Sinus rhythm at a rate of [address] T wave changes First-degree block Normal axis MDM Narrative Medical decision making narrative: 400am patient is re-evaluated. He sleeping comfortably. Reviewed findings of his CT scans including lack of intracranial hemorrhage and no orbital rim fracture or globe damage. The bleeding from the right eyes coming from the hematoma and leaking through soft tissues around the eyelid. Patient states that he had actually been doing fairly well and his primary care physician had given him a Valium taper with which he had remained sober until 2 days ago. He states he has been on a binge only for the last 48 hours and was surprised to hear how high his alcohol level actually was. He notes that he was in fact on the floor but denies falling. He states he was just trying to get a bit of rest until he was strong enough to stand up and get himself into bed. When asked what he would like to do, he states he is not interested in detox(I have been their 1000 times), does not believe he will need any additional inpatient detoxification (I have only been on a binge for 48 hours) and believes that he can safely manage his withdrawals at home (I have the rest of my Valium taper) and would prefer to be discharged home to take care of his dog. At this time he still fairly intoxicated and moderately unstable when walking. We negotiated an additional 3 hours of observation with L of fluid and then discharged home along with a friend who called for the welfare check and plan for him to use the medications he has at home to manage withdrawal symptoms. Discharge Plan Departure Patient Disposition: Home Clinical Impression: Alcoholism, Subconjunctival hemorrhage of right eye Alcoholic intoxication Qualifiers: Complication of substance-induced condition: uncomplicated Qualified Code(s): F10.920 - Alcohol use, unspecified with intoxication, uncomplicated Fall Qualifiers: Encounter type: initial encounter Qualified Code(s): W19.XXXA - Unspecified fall, initial encounter Traumatic hematoma of face Qualifiers: Encounter type: initial encounter Qualified Code(s): S00.83XA - Contusion of other part of head, initial encounter Instructions: DI for Alcohol Abuse Activity Restrictions/Additional Instructions: You were evaluated in the emergency room today after a friend was concerned with your apparent binge over the last 48 hours. You had multiple falls. There is no evidence of bleeding inside your brain. The bruise to the right side of your eye is draining and that is why your tears are bloody. The bones around the eye and the eyeball itself are both unharmed. You do have bleeding under this sclera (the clear covering over eyeball) and that is what looks so red and frightening. This is no worse than a bruise on your arm and will heal over the next 1-2 weeks. It does not affect her vision or the function of your eye or eyeball You have said you still have Valium at home to help with withdrawal symptoms. You also recognize that what you need to do is stop drinking. I wish you the best of luck and accomplishing this. If you do have further complications or want additional help, please return to the emergency department Prescriptions: No Action gabapentin 600 mg tablet 600 mg PO TID Qty: 90 RF: 3 citalopram 10 mg tablet 10 mg PO DAILY RF: 0 multivitamin [Daily Multi-Vitamin] Tablet 1 tab PO QAM RF: 0 vitamin B complex Tablet 1 tab PO DAILY RF: 0 mecobalamin (vitamin B12) 500 mg PO DAILY RF: 0 calcium gluconate PO DAILY RF: 0 Adult Probiotic 3 billion cell capsule 3,000 mmu cells PO DAILY RF: 0 aspirin [Adult Low Dose Aspirin] 81 mg tablet,delayed release (DR/EC) 81 mg PO DAILY RF: 0 cholecalciferol (vitamin D3) 25 mcg (1,000 unit) capsule 4,000 unit PO DAILY RF: 0 Ultra CoQ10 75 mg capsule 75 mg PO DAILY RF: 0 magnesium PO RF: 0 ascorbic acid (vitamin C) 500 mg capsule 4,000 mg PO DAILY RF: 0 naltrexone 50 mg tablet 50 mg PO DAILY RF: 0 methocarbamol 750 mg tablet 750 mg PO DAILY RF: 0 omeprazole 20 mg capsule,delayed release(DR/EC) 20 mg PO DAILY RF: 0 melatonin 100 PO BEDTIME PRN (Reason: Sleep) RF: 0 tamsulosin [Flomax] 0.4 mg capsule 0.8 mg PO DAILY Qty: 0 RF: 0 trazodone 100 mg tablet 100 mg PO BEDTIME RF: 0 duloxetine 60 mg capsule,delayed release(DR/EC) 60 mg PO DAILY RF: 0 testosterone cypionate 200 mg/mL oil 200 mg IM Q3W RF: 0 Referrals: Maria Teresa Talley PA-C [Primary Care Provider] -
[2019-11-17 06:58] VITALS: BP 136/77; PULSE 89; RESP 15; O2SAT 95
== END 2019-11-17 07:08 | disposition home or self-care (01) ==
PROVIDERS: Emergency Provider Emergency Medicine; PCP Student in an Organized Health Care Education/Training Program
DX: S00.83XA Contusion of other part of head, initial encounter (principal); F10.229 Alcohol dependence with intoxication, unspecified; Y90.8 Blood alcohol level of 240 mg/100 ml or more; I10 Essential (primary) hypertension; W19.XXXA Unspecified fall, initial encounter
CPT/HCPCS: 70450; 70480; 80053; 80320; 81003; 84484; 85025; 93005; 93010; 99284

== ENCOUNTER 2020-04-14 14:53 | Emergency (ER) | payer MEDICARE, OTHER, SELFPAY ==
[2020-04-14] VITALS (15 sets, daily range): BP systolic 121–148; BP diastolic 74–80; PULSE 71–136; RESP 16–24; TEMP 36.8; O2SAT 93–98; BMI 38.0
--- NOTE | 2020-04-14 15:12 | ED.ALCOHOL ---
HPI - Alcohol <BONG Degroot - Last Filed: 04/14/20 21:16> General Chief Complaint: Toxicology Problem Stated Complaint: ETOH Time Seen by Provider: 04/14/20 14:55 Source: patient Mode of arrival: EMS Limitations: no limitations History of Present Illness HPI narrative: This is a 64-year-old male, former smoker, medical history significant for alcohol dependence, depression, BPH, venous insufficiency, gastric bypass, bowel obstruction presents to ED with EMS after his friend called 911 with chief complain of I want Detox and requesting outpatient treatment. Patient reports his motivation is I don't want to and reports has history of cirrhosis, fatty liver. He reports needed to be out of the house and drinking environment and need help. Patient reports several attempts of detox including self attempt and hospitalization in the past and alcohol use for last 50 years since he was age 13. Patient reports last relapses about 2 weeks ago and usually drinks about 750 ml of vodka a day. He is not sure how much he had consumed since he drank all night and all this morning. Patient denies having seizure from withdrawals but reports had anxiety, tremors, headaches. Patient reports stop taking Cymbalta and Naltrexolone when he started drinking alcohol. He had re-start taking Naltrexone this morning and he is currently taking gabapentin daily. Patient denies suicidal or homicidal ideation. Patient denies exposure to known Covid, recent travels. Patient reports last relapse is likely due to increase in stress in his life. Related Data Home Medications Medication Instructions Recorded Confirmed tamsulosin 0.4 mg capsule 0.8 mg PO DAILY #0 cap 06/23/19 03/28/20 testosterone cypionate 200 mg/mL 200 mg IM Q3W ml 06/23/19 03/28/20 intramuscular oil ascorbic acid (vitamin C) 500 mg 4,000 mg PO DAILY cap 10/11/19 03/28/20 capsule aspirin 81 mg tablet,delayed 81 mg PO DAILY 10/11/19 03/28/20 release calcium gluconate PO DAILY 10/11/19 03/28/20 cholecalciferol (vitamin D3) 25 4,000 unit PO DAILY cap 10/11/19 03/28/20 mcg (1,000 unit) capsule coenzyme Q10 75 mg capsule 75 mg PO DAILY 10/11/19 03/28/20 lactobacillus combination no.8 3 3,000 mmu cells PO DAILY 10/11/19 03/28/20 billion cell capsule magnesium PO 10/11/19 03/28/20 mecobalamin (vitamin B12) 500 mg PO DAILY 10/11/19 03/28/20 melatonin 100 PO BEDTIME PRN 10/11/19 03/28/20 methocarbamol 750 mg tablet 750 mg PO DAILY tab 10/11/19 03/28/20 multivitamin 1 tab PO QAM 10/11/19 03/28/20 omeprazole 20 mg capsule,delayed 20 mg PO DAILY 10/11/19 03/28/20 release vitamin B complex 1 tab PO DAILY 10/11/19 03/28/20 Previous Rx's Medication Instructions Recorded ferrous sulfate 325 mg PO DAILY #90 tab 01/24/20 duloxetine 60 mg capsule,delayed 60 mg PO DAILY #30 cap 03/28/20 release gabapentin 600 mg tablet 600 mg PO TID #90 tab 03/28/20 naltrexone 50 mg tablet 50 mg PO DAILY #30 tab 03/28/20 trazodone 100 mg tablet 100 mg PO BEDTIME #30 tab 03/28/20 Allergies Allergy/AdvReac Type Severity Reaction Status Date / Time hydrochlorothiazide Allergy Severe Anaphylaxis Verified 03/28/20 14:12 [HYDROCHLOROTHIAZIDE] lisinopril [LISINOPRIL] Allergy Severe Anaphylaxis Verified 03/28/20 14:12 Review of Systems <BONG Degroot - Last Filed: 04/14/20 21:16> Review of Systems Narrative: General: Denies fever, chills, fatigue, malaise, sweats. HEENT: Denies sinus pain, ear pain, sore throat, difficulty swallowing, dizziness. Respiratory: Denies dyspnea, cough, wheezing, hemoptysis, sputum. Cardiovascular: Denies chest pain, palpitations, orthopnea, edema. Gastrointestinal: Denies nausea, vomiting, abdominal pain, diarrhea, constipation, melena. : Denies dysuria, frequency, incontinence, hematuria, urinary retention. Musculoskeletal: Denies weakness, joint pain or bony pain. Skin: Denies rash, skin lesions, or other. Neurologic: Denies weakness, headache, numbness, change in speech, confusion, seizures, incoordination. Psychiatric: See HPI 12-point review of systems is negative except for those stated above. Patient History <BONG Degroot - Last Filed: 04/14/20 21:16> Medical History (Updated 04/14/20 @ 20:45 by BONG Degroot) Alcohol use disorder, severe, in early remission (Acute) Alcoholism (Acute) Cirrhosis (Acute) Hypertension (Acute) Major depression (Acute) Surgical History History of fasciotomy (Acute) 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 ) substance use type: does not use Smoking Status: Former smoker alcohol intake frequency: 3 or more drinks per day Substance Use Type: does not use Exam <BONG Degroot - Last Filed: 04/14/20 21:16> Narrative Exam Narrative: GEN: Alert, oriented x 3, well nourished, and in no acute distress. Head: Normal cephalic, atraumatic. No scalp or temporal tenderness, palpable mass or rash. EYES: Pupils are equal, round, and reactive to light and accommodation. Extraocular muscles are intact bilaterally. There is no subconjunctival hemorrhage, exudate and sclera non-icteric. ENT: Hearing grossly intact. Nose without bleeding, purulent discharge or deviation. Facial sinuses nontender to palpate. Mucous membrane dry, no mucosal lesion. Throat without erythema, tonsillar hypertrophy or exudate. Uvula in midline, airway patent. Neck: Trachea in midline. No JVD, non-tender without lymphadenopathy. No masses or thyroid megaly. Supple, non-tender and no meningeal signs. CARDIAC: Normal regular rate and rhythm without murmurs, gallops, or rubs. No chest wall tenderness. No peripheral edema, cyanosis or pallor. Capillary refill is less than 2 seconds. RESPIRATORY: Lungs are clear to auscultate bilaterally. No cough, wheezes, rales, or rhonchi. No stridor, respiratory distress, increase work of breathing, or accessary muscle used. ABD: Abdomen soft, nontender and non-distended. No guarding or rebound tenderness to palpate. Bowel sounds are normal in all 4 quadrants. There is no palpable masses or organomegaly. EXT: Full painless ROM of all extremities with no loss of sensation, strength, effusion or edema. SKIN: Warm, dry, normal color for patient. No erythema, lesions or rash over visible areas. BACK: Nontender without deformity or crepitance. No flank tenderness. NEUROLOGICAL: Alert and oriented to place, time and person. Sensation and motor function intact bilaterally. No facial droops, dysphasia. PSYCHIATRIC: Good judgement and reason, without hallucinations, abnormal affect or abnormal behaviors during the examination. Patient is not suicidal. Initial Vital Signs Initial Vital Signs: Vital Signs Blood Pressure 144/74 H 04/14/20 14:58 <Elena Jason DO - Last Filed: 04/15/20 07:45> Initial Vital Signs Initial Vital Signs: Vital Signs Blood Pressure 144/74 H 04/14/20 14:58 Scores <BONG Degroot - Last Filed: 04/14/20 21:16> GCS [place] coma scale eye opening: Spontaneous Chi coma scale verbal response: Orientated [place] coma scale motor response: Obey commands Chi coma scale total score: 15 Citation: [id number] Course <BONG Degroot - Last Filed: 04/14/20 21:16> Orders Ordered: Discontinued Medications Magnesium Sulfate 2 gm/ Folic Acid 1 mg/ Thiamine HCl 100 mg / Multivitamins 10 ml/ Sodium Chloride 1,015.2 mls @ 125 mls/hr IV NOW ONE Stop: 04/14/20 23:19 Last Infusion: 04/14/20 21:23 Dose: 0 mls/hr Documented by: Admin: 04/14/20 15:43 Dose: 125 mls/hr Documented by: AMANDA Lorazepam (Ativan) 0.5 mg PO NOW ONE Stop: 04/14/20 20:44 Last Admin: 04/14/20 20:51 Dose: 0.5 mg Documented by: AMANDA Ondansetron HCl (Zofran) 4 mg IV NOW ONE Stop: 04/14/20 18:25 Last Admin: 04/14/20 18:44 Dose: 4 mg Documented by: AMANDA Ondansetron HCl (Zofran) 4 mg IV NOW ONE Stop: 04/14/20 19:10 Last Admin: 04/14/20 20:09 Dose: Not Given Documented by: AMANDA Ondansetron HCl (Zofran Odt Prepack) 1 bottle MISC SEEINSTR ONE Stop: 04/14/20 20:44 Last Admin: 04/14/20 20:52 Dose: 1 bottle Documented by: AMANDA Pantoprazole Sodium (Protonix) 40 mg IV NOW ONE Stop: 04/14/20 19:46 Last Admin: 04/14/20 19:59 Dose: 40 mg Documented by: AAMNDA Phenobarbital (Phenobarbital) 130 mg IV NOW ONE Stop: 04/14/20 17:54 Last Admin: 04/14/20 18:16 Dose: 130 mg Documented by: AMANDA Reevaluation(s) Reevaluation #1: #2nd CIWA-1 fine tremor Had an episode of tachycardia at 150's with standing up to void and symptomatic light dizziness. EKG obtained Infusing Banana bag 500ml Bolus. Will administer phenobarb prophylactically Time: 17:51 Reevaluation #2: Patient's friend Michael called ER and states the patient mentioned to him that He will drink and drink until he dies at home. I verified this the patient and states he does not have suicidal ideation. He wants to leave that is the reason he had called drawn and to call EMS and states I can't do that to my kids and grand kids however if he did not come into ER, he will end up dying from drinking too much. We discussed plan for discharge patient to home if patient can tolerate ambulation in stable gait, food and drinks. Time: 19:45 Reevaluation #3: Patient ambulated to the bathroom and back to bed in stable gaits. Patient converses in clear speech appropriately and is alert and oriented x3. He wishes to go home and like to be with his dog. He was able to tolerated po snack and juice. Time: 20:43 Vital Signs Vital signs: Vital Signs - 8 hr 04/14/20 14:58 04/14/20 14:59 04/14/20 15:00 Temperature Pulse Rate 79 78 Respiratory Rate Blood Pressure 144/74 H 144/80 H Pulse Oximetry 95 96 04/14/20 15:10 04/14/20 15:30 04/14/20 16:00 Temperature 98.3 F Pulse Rate 78 73 76 Respiratory Rate 16 16 20 Blood Pressure 144/74 H 140/74 Pulse Oximetry 97 97 98 04/14/20 16:08 04/14/20 16:30 04/14/20 17:00 Temperature Pulse Rate 74 73 80 Respiratory Rate 19 23 18 Blood Pressure 135/78 132/75 Pulse Oximetry 96 93 94 04/14/20 17:25 04/14/20 17:30 04/14/20 17:47 Temperature Pulse Rate 136 H 78 75 Respiratory Rate 17 19 19 Blood Pressure 121/79 141/77 H Pulse Oximetry 93 97 98 04/14/20 18:00 04/14/20 18:22 Temperature Pulse Rate 71 72 Respiratory Rate 21 24 Blood Pressure 141/75 H 148/75 H Pulse Oximetry 94 98 <Elena Jason DO - Last Filed: 04/15/20 07:45> Orders Ordered: Discontinued Medications Magnesium Sulfate 2 gm/ Folic Acid 1 mg/ Thiamine HCl 100 mg / Multivitamins 10 ml/ Sodium Chloride 1,015.2 mls @ 125 mls/hr IV NOW ONE Stop: 04/14/20 23:19 Last Infusion: 04/14/20 21:23 Dose: 0 mls/hr Documented by: Admin: 04/14/20 15:43 Dose: 125 mls/hr Documented by: AMANDA Lorazepam (Ativan) 0.5 mg PO NOW ONE Stop: 04/14/20 20:44 Last Admin: 04/14/20 20:51 Dose: 0.5 mg Documented by: AMANDA Ondansetron HCl (Zofran) 4 mg IV NOW ONE Stop: 04/14/20 18:25 Last Admin: 04/14/20 18:44 Dose: 4 mg Documented by: AMANDA Ondansetron HCl (Zofran) 4 mg IV NOW ONE Stop: 04/14/20 19:10 Last Admin: 04/14/20 20:09 Dose: Not Given Documented by: AMANDA Ondansetron HCl (Zofran Odt Prepack) 1 bottle MISC SEEINSTR ONE Stop: 04/14/20 20:44 Last Admin: 04/14/20 20:52 Dose: 1 bottle Documented by: AMANDA Pantoprazole Sodium (Protonix) 40 mg IV NOW ONE Stop: 04/14/20 19:46 Last Admin: 04/14/20 19:59 Dose: 40 mg Documented by: AMANDA Phenobarbital (Phenobarbital) 130 mg IV NOW ONE Stop: 04/14/20 17:54 Last Admin: 04/14/20 18:16 Dose: 130 mg Documented by: AMANDA Vital Signs Vital signs: Vital Signs - 8 hr 04/14/20 14:58 04/14/20 14:59 04/14/20 15:00 Temperature Pulse Rate 79 78 Respiratory Rate Blood Pressure 144/74 H 144/80 H Pulse Oximetry 95 96 04/14/20 15:10 04/14/20 15:30 04/14/20 16:00 Temperature 98.3 F Pulse Rate 78 73 76 Respiratory Rate 16 16 20 Blood Pressure 144/74 H 140/74 Pulse Oximetry 97 97 98 04/14/20 16:08 04/14/20 16:30 04/14/20 17:00 Temperature Pulse Rate 74 73 80 Respiratory Rate 19 23 18 Blood Pressure 135/78 132/75 Pulse Oximetry 96 93 94 04/14/20 17:25 04/14/20 17:30 04/14/20 17:47 Temperature Pulse Rate 136 H 78 75 Respiratory Rate 17 19 19 Blood Pressure 121/79 141/77 H Pulse Oximetry 93 97 98 04/14/20 18:00 04/14/20 18:22 Temperature Pulse Rate 71 72 Respiratory Rate 21 24 Blood Pressure 141/75 H 148/75 H Pulse Oximetry 94 98 MDM - Alcohol <BONG Degroot - Last Filed: 04/14/20 21:16> Differential Diagnosis Differential diagnosis: Likely alcohol intoxication and alcohol withdrawal syndrome Medical Records Attestation: I reviewed the patient's medical records. Lab Data Attestation: I reviewed the patient's lab results. Result diagrams: 04/14/20 15:45 04/14/20 15:45 Labs: Lab Results 04/14/20 04/14/20 04/14/20 Range/Units 15:45 15:45 15:45 WBC 2.8 L (4.5-11.0) X10^3/uL RBC 4.96 (4.5-5.9) X10^6/uL Hgb 14.4 (13.5-17.5) g/dL Hct 44.2 (41-53) % MCV 89.1 (80-100) fL MCH 29.1 (26-34) PG MCHC 32.7 (30-36) % RDW 21.8 H (11.6-14.8) % Plt Count 143 L (150-400) X10^3/uL Neut % (Auto) 25.0 L (50-75) % Lymph % (Auto) 64.4 H (25-40) % Collier % (Auto) 8.3 (3-14) % Eos % (Auto) 0.8 L (2-4) % Baso % (Auto) 1.5 (0-2) % Neut # (Auto) 700 L (8343-9164) /uL Lymph # (Auto) 1800 (4195-2105) /uL [place]lier # (Auto) 200 (0-900) /uL Eos # (Auto) 0 (0-450) /uL Baso # (Auto) 0 (0-100) /uL RBC Morphology See below Anisocytosis 2+ H Target Cells 1+ H PT 12.9 H (10.1-12.7) SECONDS INR 1.1 (0.9-1.3) Sodium 140 (137-145) mmol/L Potassium 4.3 (3.4-5.1) mmol/L Chloride 102 (98-107) mmol/L Carbon Dioxide 26 (22-32) mmol/L BUN 18 (9-20) mg/dL Creatinine 0.69 (0.66-1.25) mg/dL Estimated GFR > 60.0 (>60) mL/min BUN/Creatinine Ratio 26.1 H (6-22) Glucose 87 (80-110) mg/dL Calcium 8.4 (8.4-10.2) mg/dL Phosphorus 3.9 H (2.3-3.7) mg/dL Magnesium 1.6 (1.6-2.3) mg/dL Total Bilirubin 0.8 (0.2-1.3) mg/dL Conjugated Bilirubin 0.0 (0.0-0.3) md/dL Unconjugated Bilirubin 0.6 (0.0-1.1) mg/dL AST 63 H (17-59) IU/L ALT 27 (<50) IU/L Alkaline Phosphatase 72 (38-126) U/L Total Protein 7.1 (6.3-8.2) g/dL Albumin 3.6 (3.5-5.0) g/dL Globulin 3.5 (1.7-4.1) g/dL Albumin/Globulin Ratio 1.0 (1.0-2.8) Lipase 93 (23-300) U/L U Opiates 300ng/mL cut (Negative) Ur Oxycodone Screen (Negative) Urine Methadone Screen (Negative) Ur Barbiturates Screen (Negative) U Tricyclic Antidepress (Negative) Ur Phencyclidine Scrn (Negative) Ur Amphetamines Screen (Negative) U Methamphetamines Scrn (Negative) Ur MDMA Scrn (Ecstasy) (Negative) U Benzodiazepines Scrn (Negative) Urine Cocaine Screen (Negative) U Marijuana (THC) Screen (Negative) Ethyl Alcohol 360 H ( - 10) mg/dL 04/14/20 Range/Units 17:42 WBC (4.5-11.0) X10^3/uL RBC (4.5-5.9) X10^6/uL Hgb (13.5-17.5) g/dL Hct (41-53) % MCV (80-100) fL MCH (26-34) PG MCHC (30-36) % RDW (11.6-14.8) % Plt Count (150-400) X10^3/uL Neut % (Auto) (50-75) % Lymph % (Auto) (25-40) % [place] % (Auto) (3-14) % Eos % (Auto) (2-4) % Baso % (Auto) (0-2) % Neut # (Auto) (9379-0833) /uL Lymph # (Auto) (3407-5986) /uL [place]lier # (Auto) (0-900) /uL Eos # (Auto) (0-450) /uL Baso # (Auto) (0-100) /uL RBC Morphology Anisocytosis Target Cells PT (10.1-12.7) SECONDS INR (0.9-1.3) Sodium (137-145) mmol/L Potassium (3.4-5.1) mmol/L Chloride (98-107) mmol/L Carbon Dioxide (22-32) mmol/L BUN (9-20) mg/dL Creatinine (0.66-1.25) mg/dL Estimated GFR (>60) mL/min BUN/Creatinine Ratio (6-22) Glucose (80-110) mg/dL Calcium (8.4-10.2) mg/dL Phosphorus (2.3-3.7) mg/dL Magnesium (1.6-2.3) mg/dL Total Bilirubin (0.2-1.3) mg/dL Conjugated Bilirubin (0.0-0.3) md/dL Unconjugated Bilirubin (0.0-1.1) mg/dL AST (17-59) IU/L ALT (<50) IU/L Alkaline Phosphatase (38-126) U/L Total Protein (6.3-8.2) g/dL Albumin (3.5-5.0) g/dL Globulin (1.7-4.1) g/dL Albumin/Globulin Ratio (1.0-2.8) Lipase (23-300) U/L U Opiates 300ng/mL cut Negative (Negative) Ur Oxycodone Screen Negative (Negative) Urine Methadone Screen Negative (Negative) Ur Barbiturates Screen Negative (Negative) U Tricyclic Antidepress Negative (Negative) Ur Phencyclidine Scrn Negative (Negative) Ur Amphetamines Screen Negative (Negative) U Methamphetamines Scrn Negative (Negative) Ur MDMA Scrn (Ecstasy) Negative (Negative) U Benzodiazepines Scrn Negative (Negative) Urine Cocaine Screen Negative (Negative) U Marijuana (THC) Screen Positive H (Negative) Ethyl Alcohol ( - 10) mg/dL Urine Dip Bedside Urine Glucose Negative Bedside Urine Bilirubin - Negative Bedside Urine Ketone +++ 80 Urine Specific [place] 1.025 Bedside Urine Occult Blood - Negative Bedside Urine pH 6.0 Bedside Urine Protein - Negative Bedside Urine Urobilinogen +/- 1mg Bedside Urine Nitrite - Negative Bedside Urine Leukocytes - Negative Esterase ECG Data Attestation: I personally reviewed and interpreted this ECG as follows: Prior ECG tracings: available for review Interpretation: Sinus rhythm with first-degree AV block rate at 81. FL interval 223, QRS duration 90, QT/QTc 384/[address] changes. Similar to previous EKG tracings. [facility] Narrative Medical decision making narrative: This is a 64-year-old gentleman who has a long history of alcohol dependency presents to ED stating I want detox requesting this through out-patiently. He denies suicidal ideation and states he is here in ER to stop drinking and not to from drinking excessively. He denies previous history of DT and had attempted several times detox in hospital setting and on his own at home. Patient is currently taking Gabapetine and Naltrexolone. EKG is sinus rhythm with first-degree AV block rate at 81 with 1 episode of tachycardia. Patient was hydrated with Banana bag. CBC was unremarkable except mildly decreased WBC of 2.8 and platelets of 143. Normal H&H of 14.4/44.2. Unremarkable coag test. slightly increased BUN and creatinine ratio of 26.1 and phosphorus of 3.9. Slight elevated AST of 63 with normal ALT, alk phosphatase, bilirubin. Patient was able to ambulate to bathroom and back to bed in stable gait, was able to tolerate fluids and snacks without nausea and vomiting, conversed with staff in clear voice and speech appropriately. He is wishing to go home to be with his dog. Patient advised to hydrate well, take Zofran as needed for nausea and vomiting. Patient medicated with phenobarbital IV while in ED and medicated with Ativan 0.5 mg before discharged to home. Considered discharging patient with Ativan but decided to defer this given the Benzo medication precaution and ETOH co consumption precaution. Patient advised to follow-up with primary care physician on Thursday has discussed and his counselor and advised to contact psychiatric as needed. Strict return precautions were discussed with patient and he verbalized understanding in agreement with the treatment plan. <Elena Jason, DO - Last Filed: 04/15/20 07:45> Lab Data Labs: Lab Results 04/14/20 04/14/20 04/14/20 Range/Units 15:45 15:45 15:45 WBC 2.8 L (4.5-11.0) X10^3/uL RBC 4.96 (4.5-5.9) X10^6/uL Hgb 14.4 (13.5-17.5) g/dL Hct 44.2 (41-53) % MCV 89.1 (80-100) fL MCH 29.1 (26-34) PG MCHC 32.7 (30-36) % RDW 21.8 H (11.6-14.8) % Plt Count 143 L (150-400) X10^3/uL Neut % (Auto) 25.0 L (50-75) % Lymph % (Auto) 64.4 H (25-40) % Collier % (Auto) 8.3 (3-14) % Eos % (Auto) 0.8 L (2-4) % Baso % (Auto) 1.5 (0-2) % Neut # (Auto) 700 L (0622-4287) /uL Lymph # (Auto) 1800 (6539-3456) /uL [place] # (Auto) 200 (0-900) /uL Eos # (Auto) 0 (0-450) /uL Baso # (Auto) 0 (0-100) /uL RBC Morphology See below Anisocytosis 2+ H Target Cells 1+ H PT 12.9 H (10.1-12.7) SECONDS INR 1.1 (0.9-1.3) Sodium 140 (137-145) mmol/L Potassium 4.3 (3.4-5.1) mmol/L Chloride 102 (98-107) mmol/L Carbon Dioxide 26 (22-32) mmol/L BUN 18 (9-20) mg/dL Creatinine 0.69 (0.66-1.25) mg/dL Estimated GFR > 60.0 (>60) mL/min BUN/Creatinine Ratio 26.1 H (6-22) Glucose 87 (80-110) mg/dL Calcium 8.4 (8.4-10.2) mg/dL Phosphorus 3.9 H (2.3-3.7) mg/dL Magnesium 1.6 (1.6-2.3) mg/dL Total Bilirubin 0.8 (0.2-1.3) mg/dL Conjugated Bilirubin 0.0 (0.0-0.3) md/dL Unconjugated Bilirubin 0.6 (0.0-1.1) mg/dL AST 63 H (17-59) IU/L ALT 27 (<50) IU/L Alkaline Phosphatase 72 (38-126) U/L Total Protein 7.1 (6.3-8.2) g/dL Albumin 3.6 (3.5-5.0) g/dL Globulin 3.5 (1.7-4.1) g/dL Albumin/Globulin Ratio 1.0 (1.0-2.8) Lipase 93 (23-300) U/L U Opiates 300ng/mL cut (Negative) Ur Oxycodone Screen (Negative) Urine Methadone Screen (Negative) Ur Barbiturates Screen (Negative) U Tricyclic Antidepress (Negative) Ur Phencyclidine Scrn (Negative) Ur Amphetamines Screen (Negative) U Methamphetamines Scrn (Negative) Ur MDMA Scrn (Ecstasy) (Negative) U Benzodiazepines Scrn (Negative) Urine Cocaine Screen (Negative) U Marijuana (THC) Screen (Negative) Ethyl Alcohol 360 H ( - 10) mg/dL 04/14/20 Range/Units 17:42 WBC (4.5-11.0) X10^3/uL RBC (4.5-5.9) X10^6/uL Hgb (13.5-17.5) g/dL Hct (41-53) % MCV (80-100) fL MCH (26-34) PG MCHC (30-36) % RDW (11.6-14.8) % Plt Count (150-400) X10^3/uL Neut % (Auto) (50-75) % Lymph % (Auto) (25-40) % Collier % (Auto) (3-14) % Eos % (Auto) (2-4) % Baso % (Auto) (0-2) % Neut # (Auto) (1111-1749) /uL Lymph # (Auto) (3519-0749) /uL [place]lier # (Auto) (0-900) /uL Eos # (Auto) (0-450) /uL Baso # (Auto) (0-100) /uL RBC Morphology Anisocytosis Target Cells PT (10.1-12.7) SECONDS INR (0.9-1.3) Sodium (137-145) mmol/L Potassium (3.4-5.1) mmol/L Chloride (98-107) mmol/L Carbon Dioxide (22-32) mmol/L BUN (9-20) mg/dL Creatinine (0.66-1.25) mg/dL Estimated GFR (>60) mL/min BUN/Creatinine Ratio (6-22) Glucose (80-110) mg/dL Calcium (8.4-10.2) mg/dL Phosphorus (2.3-3.7) mg/dL Magnesium (1.6-2.3) mg/dL Total Bilirubin (0.2-1.3) mg/dL Conjugated Bilirubin (0.0-0.3) md/dL Unconjugated Bilirubin (0.0-1.1) mg/dL AST (17-59) IU/L ALT (<50) IU/L Alkaline Phosphatase (38-126) U/L Total Protein (6.3-8.2) g/dL Albumin (3.5-5.0) g/dL Globulin (1.7-4.1) g/dL Albumin/Globulin Ratio (1.0-2.8) Lipase (23-300) U/L U Opiates 300ng/mL cut Negative (Negative) Ur Oxycodone Screen Negative (Negative) Urine Methadone Screen Negative (Negative) Ur Barbiturates Screen Negative (Negative) U Tricyclic Antidepress Negative (Negative) Ur Phencyclidine Scrn Negative (Negative) Ur Amphetamines Screen Negative (Negative) U Methamphetamines Scrn Negative (Negative) Ur MDMA Scrn (Ecstasy) Negative (Negative) U Benzodiazepines Scrn Negative (Negative) Urine Cocaine Screen Negative (Negative) U Marijuana (THC) Screen Positive H (Negative) Ethyl Alcohol ( - 10) mg/dL Urine Dip Bedside Urine Glucose Negative Bedside Urine Bilirubin - Negative Bedside Urine Ketone +++ 80 Urine Specific [place] 1.025 Bedside Urine Occult Blood - Negative Bedside Urine pH 6.0 Bedside Urine Protein - Negative Bedside Urine Urobilinogen +/- 1mg Bedside Urine Nitrite - Negative Bedside Urine Leukocytes - Negative Esterase Discharge Plan Departure Patient Disposition: Home Clinical Impression: Alcohol dependence Qualifiers: Substance use status: unspecified alcohol-induced disorder Qualified Code(s): F10.29 - Alcohol dependence with unspecified alcohol-induced disorder Discharge Date/Time: 04/14/20 21:36 Instructions: DI for Alcohol Use Disorder Activity Restrictions/Additional Instructions: You have been diagnosed with [alcohol use disorder. EKG, labs are unremarkable except mildly decreased platelet levels, signs of mild dehydration. Your ETOH lab level was 360 today. You were medicated with IVF-banana bag, Zofran, and Phenobarbitol, and Ativan.]. What to do: *Take your medications as directed. Please take Zofran as needed for nausea. *Follow up with your primary care provider in 2 days, call for an appointment. Let them know you were seen in the ED and that we asked you to be seen in follow up. *Return to ED if you have any new, worsening, or concerning symptoms, such as [chest pain, breathing difficulty, unable to tolerate fluids, fever, seizure, suicidal ideation or any acute concerns]. Prescriptions: No Action multivitamin [Daily Multi-Vitamin] Tablet 1 tab PO QAM RF: 0 vitamin B complex Tablet 1 tab PO DAILY RF: 0 mecobalamin (vitamin B12) 500 mg PO DAILY RF: 0 calcium gluconate PO DAILY RF: 0 Adult Probiotic 3 billion cell capsule 3,000 mmu cells PO DAILY RF: 0 aspirin [Adult Low Dose Aspirin] 81 mg tablet,delayed release (DR/EC) 81 mg PO DAILY RF: 0 cholecalciferol (vitamin D3) 25 mcg (1,000 unit) capsule 4,000 unit PO DAILY RF: 0 Ultra CoQ10 75 mg capsule 75 mg PO DAILY RF: 0 magnesium PO RF: 0 ascorbic acid (vitamin C) 500 mg capsule 4,000 mg PO DAILY RF: 0 methocarbamol 750 mg tablet 750 mg PO DAILY RF: 0 omeprazole 20 mg capsule,delayed release(DR/EC) 20 mg PO DAILY RF: 0 melatonin 100 PO BEDTIME PRN (Reason: Sleep) RF: 0 duloxetine 60 mg capsule,delayed release(DR/EC) 60 mg PO DAILY Qty: 30 RF: 5 gabapentin 600 mg tablet 600 mg PO TID Qty: 90 RF: 3 naltrexone 50 mg tablet 50 mg PO DAILY Qty: 30 RF: 3 trazodone 100 mg tablet 100 mg PO BEDTIME Qty: 30 RF: 5 tamsulosin [Flomax] 0.4 mg capsule 0.8 mg PO DAILY Qty: 0 RF: 0 ferrous sulfate 325 mg (65 mg iron) Tablet 325 mg PO DAILY Qty: 90 RF: 0 testosterone cypionate 200 mg/mL oil 200 mg IM Q3W RF: 0 Referrals: Maria Teresa Talley PA-C [Primary Care Provider] - <Elena Jason DO - Last Filed: 04/15/20 07:45> Cosign ED Attending Rosangela Attestation: I was immediately available in the department for consultation. Documentation has been reviewed. I agree with assessment and plan.
[2020-04-14] MEDS: MAGNESIUM SULFATE 2 GM, FOLIC ACID 1 MG, THIAMINE 100 MG, MULTIVITAMIN 10 ML in SODIUM ... IV (15:43)
[2020-04-14 16:15] LABS: INR 1.1 (0.9-1.3); Prothrombin Time 12.9 SECONDS (10.1-12.7)
[2020-04-14 16:16] LABS: Add Manual Diff / Slide Review NO; Basophils Absolute Auto 0 /uL (0-100); Basophils Percent Auto 1.5 % (0-2); Eosinophils Absolute Auto 0 /uL (0-450); Eosinophils Percent Auto 0.8 % (2-4); Hematocrit 44.2 % (41-53); Hemoglobin 14.4 g/dL (13.5-17.5); Lymphocytes Absolute Auto 1800 /uL (1100-4500); Lymphocytes Percent Auto 64.4 % (25-40); Mean Corpuscular HGB Conc 32.7 % (30-36); Mean Corpuscular Hemoglobin 29.1 PG (26-34); Mean Corpuscular Volume 89.1 fL (80-100); Monocytes Absolute Auto 200 /uL (0-900); Monocytes Percent Auto 8.3 % (3-14); Neutrophils Absolute Auto 700 /uL (1500-7000); Platelet Count 143 X10^3/uL (150-400); Red Blood Cell Count 4.96 X10^6/uL (4.5-5.9); Red Cell Distribution Width 21.8 % (11.6-14.8); White Blood Cell Count 2.8 X10^3/uL (4.5-11.0)
[2020-04-14 16:40] LABS: Alanine Aminotransferase 27 IU/L (<50); Albumin 3.6 g/dL (3.5-5.0); Alkaline Phosphatase 72 U/L (38-126); Aspartate Aminotransferase 63 IU/L (17-59); BUN Creatinine Ratio 26.1 (6-22); Bilirubin Total 0.8 mg/dL (0.2-1.3); Bilirubin Unconjugated 0.6 mg/dL (0.0-1.1); Blood Urea Nitrogen 18 mg/dL (9-20); Calcium 8.4 mg/dL (8.4-10.2); Carbon Dioxide 26 mmol/L (22-32); Chloride 102 mmol/L (98-107); Estimated Glomerular Filt Rate > 60.0 mL/min (>60); Globulin 3.5 g/dL (1.7-4.1); Glucose 87 mg/dL (80-110); Lipase 93 U/L (23-300); Magnesium 1.6 mg/dL (1.6-2.3); Phosphorous 3.9 mg/dL (2.3-3.7); Potassium 4.3 mmol/L (3.4-5.1); Sodium 140 mmol/L (137-145); Total Protein 7.1 g/dL (6.3-8.2)
[2020-04-14 16:47] LABS: HEMOLYSIS 18 (0-50)
[2020-04-14 16:49] LABS: Anisocytosis 2+; Target Cells 1+
[2020-04-14 16:51] LABS: Ethanol (ETOH) 360 mg/dL
[2020-04-14 17:59] LABS: Ur Creatinine Normal (Normal)
[2020-04-14 18:00] LABS: UR Morphine/Opiate cutoff 300 Negative (Negative); Ur Specific Gravity Normal (Normal); Urine Amphetamines Negative (Negative); Urine Barbiturates Negative (Negative); Urine Benzodiazepines Negative (Negative); Urine Cocaine Negative (Negative); Urine MDMA Negative (Negative); Urine Methadone Negative (Negative); Urine Methamphetamines Negative (Negative); Urine Oxycodone Negative (Negative); Urine Phencyclidine Negative (Negative); Urine Tetrahydrocannabinol Positive (Negative); Urine Tricyclic Antidepressant Negative (Negative); Urine pH Normal (Normal)
[2020-04-14] MEDS: PHENobarbital 65 MG/ML VIAL 130 MG IV (18:16)
[2020-04-14] MEDS: ONDANSETRON 4 MG/2 ML INJ IV (18:44)
[2020-04-14] MEDS: PANTOPRAZOLE 40 MG VIAL IV (19:59)
[2020-04-14] MEDS: LORazepam 0.5 MG TABLET PO (20:51)
[2020-04-14] MEDS: ONDANSETRON 4 MG ODT PREPACK 1 BOTTLE MISC (20:52)
== END 2020-04-14 21:36 | disposition home or self-care (01) ==
PROVIDERS: Emergency Provider Nurse Practitioner Family; PCP Student in an Organized Health Care Education/Training Program
DX: F10.129 Alcohol abuse with intoxication, unspecified (principal); Y90.8 Blood alcohol level of 240 mg/100 ml or more; R07.9 Chest pain, unspecified
CPT/HCPCS: 36415; 80053; 80076; 80305; 80320; 81003; 83690; 83735; 84100; 85025; 85610; 93005; 93010; 96361; 96374; 96375; 99284; C9113; J2405; J2560; J3475

== ENCOUNTER 2020-05-19 20:51 | Emergency (ER) | payer MEDICARE, OTHER, SELFPAY ==
[2020-05-19] VITALS (10 sets, daily range): BP systolic 119–138; BP diastolic 61–76; PULSE 77–89; RESP 12; TEMP 36.9; O2SAT 82–97; BMI 39.1
--- NOTE | 2020-05-19 20:55 | DI.CT.S_ITS ---
PROCEDURE: CT CERVICAL SPINE WO CON INDICATIONS: fall TECHNIQUE: Noncontrast 3 mm thick sections acquired from the skull base to the T4 level. Sagittal and coronal reformats were then constructed. For radiation dose reduction, the following was used: automated exposure control, adjustment of mA and/or kV according to patient size. COMPARISON: None. FINDINGS: Image quality: Excellent. Bones: No fractures or dislocations. Visualized superior ribs are intact. Soft tissues: Prevertebral soft tissues are normal in thickness. No paravertebral hematomas. No apical pneumothoraces. Mild right maxillary sinus mucosal thickening. REFERENCE TEXT DELETE FROM FINAL REPORT Craniocervical Injury Classification: Occipital condyle fractures: * Type I: axial loading with minimal displacement; stable. * Type II: skull base fx extending through condyle; stable. * Type III: alar ligament avulsion fx:; unstable. [place] fractures (Rob): * Type I: posterior arches; stable. * Type II: anterior arch; stable. * Type III: bilat posterior arch with bilateral/unilateral anterior arch (Rob burst); potentially unstable depending on transverse ligament integrity. * Type IV: lateral mass fx; stable. * Type V: transverse anterior arch avulsion fx; stable. Odontoid fractures: * Type I: alar ligament oblique avulsion fx through tip; stable. * Type II: dens-body junction; unstable. Risk factors for non-union: age >50 years, >6 mm displacement, or comminution at fracture site. * Type III: thru cancellous portion of dens body; can cause canal compromise. Hangman fractures: * Type I: hairline fx with <2 mm translation; stable. * Type II: angulation >11 degrees, > 2 mm translation; can be unstable. * Type IIa: severe angulation w/o translation (intact ALL); unstable. * Type III: bilateral facet dislocation; unstable. Atlantoaxial rotatory subluxation and fixation: * Type I: rotatory fixation with dens as pivot point, intact alar & transverse ligaments. * Type II: transverse ligament torn, center of rotation shifts to lateral mass, <5 mm anterior displacement of atlas; unstable. * Type III: transverse and alar ligaments torn, similar to type II but with >5 mm anterior displacement of atlas; unstable. * Type IV: deficient odontoid, with posterior displacement of atlas; unstable. Subaxial Injury Classification: SLIC Scoring System. Morphology: * No abnormality: 0 * Compression: 1 * Burst: 2 * Distraction: 3 (dislocation in the vertical axis, from hyperextension or hyperflexion). Hyperflexion-distraction criteria: facet overlap <50%, facet diastasis > 2mm, posterior disk spac widening with angulation >11 degrees. * Translation or rotation: 4. Rotation criteria: listhesis >3.5 mm but <50% of caudal vertebral body width. Translation criteria: listhesis >3.5 mm and usually >50% of caudal vertebral body width. 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 * Intact: 0 * Indeterminate: 1 * Disrupted: 2 Neurologic status: * Intact: 0 * Root injury: 1 * Complete cord injury: 2 * Incomplete cord injury: 3 * Incomplete cord injury with compression: 4 Total SLIC score: 3 or less is non-surgical, 4 is indeterminate, 5 or more is surgical. IMPRESSION: No fracture. Dictated by: Rajni Coe M.D. on 05/19/2020 at 21:22 Approved by: Rajni Coe M.D. on 05/19/2020 at 21:23
--- NOTE | 2020-05-19 20:55 | DI.CT.S_ITS ---
PROCEDURE: CT HEAD/BRAIN WO CON INDICATIONS: fall ETOH TECHNIQUE: Noncontrast 4.5 mm thick angled axial sections acquired from the foramen magnum to the vertex, with coronal and sagittal reformats. For radiation dose reduction, the following was used: automated exposure control, adjustment of mA and/or kV according to patient size. COMPARISON: [facility], CT, CT HEAD/BRAIN WO CON, 11/17/2019, 0:55. FINDINGS: Image quality: Excellent. CSF spaces: Basal cisterns are patent. No extra-axial fluid collections. The ventricles are symmetric in size and shape. Brain: No intracranial bleeds or masses. There is cerebral volume loss for age, with resultant ventricular and sulcal prominence. There are periventricular and deep white matter chronic small vessel ischemic changes. There is intracranial internal carotid artery atherosclerosis. Skull and face: Calvarium and visualized facial bones appear intact, without suspicious lesions. Sinuses: Mild right maxillary sinus mucosal thickening. Visualized sinuses and mastoids are otherwise clear. IMPRESSION: No acute intracranial abnormality. Dictated by: Rajni Coe M.D. on 05/19/2020 at 21:21 Approved by: Rajni Coe M.D. on 05/19/2020 at 21:21
--- NOTE | 2020-05-19 21:07 | ED_ITS ---
HPI - Fall General Chief Complaint: Fall Stated Complaint: Fall Time Seen by Provider: 05/19/20 20:54 Source: EMS Mode of arrival: EMS Limitations: no limitations History of Present Illness HPI Narrative: The patient is a 64-year-old well known alcoholic to this facility and myself. He presents after a blackout occurrence in found on the ground. He was unable to get up due to right-sided flank pain and being int oxicated. His friend was also unable to help him so EMS was called. He says he does not remember how he got to the ground. He does have a large contusion on his left lower leg near his knee from a previous fall a few weeks ago. And his right lower leg is erythematous and have chronic venous stasis which he says is stable. MD complaint: fall Related Data Home Medications Medication Instructions Recorded Confirmed tamsulosin 0.4 mg capsule 0.8 mg PO DAILY #0 cap 06/23/19 03/28/20 testosterone cypionate 200 mg/mL 200 mg IM Q3W ml 06/23/19 03/28/20 intramuscular oil ascorbic acid (vitamin C) 500 mg 4,000 mg PO DAILY cap 10/11/19 03/28/20 capsule aspirin 81 mg tablet,delayed 81 mg PO DAILY 10/11/19 03/28/20 release calcium gluconate PO DAILY 10/11/19 03/28/20 cholecalciferol (vitamin D3) 25 4,000 unit PO DAILY cap 10/11/19 03/28/20 mcg (1,000 unit) capsule coenzyme Q10 75 mg capsule 75 mg PO DAILY 10/11/19 03/28/20 lactobacillus combination no.8 3 3,000 mmu cells PO DAILY 10/11/19 03/28/20 billion cell capsule magnesium PO 10/11/19 03/28/20 mecobalamin (vitamin B12) 500 mg PO DAILY 10/11/19 03/28/20 melatonin 100 PO BEDTIME PRN 10/11/19 03/28/20 methocarbamol 750 mg tablet 750 mg PO DAILY tab 10/11/19 03/28/20 multivitamin 1 tab PO QAM 10/11/19 03/28/20 omeprazole 20 mg capsule,delayed 20 mg PO DAILY 10/11/19 03/28/20 release vitamin B complex 1 tab PO DAILY 10/11/19 03/28/20 Previous Rx's Medication Instructions Recorded ferrous sulfate 325 mg PO DAILY #90 tab 01/24/20 duloxetine 60 mg capsule,delayed 60 mg PO DAILY #30 cap 03/28/20 release gabapentin 600 mg tablet 600 mg PO TID #90 tab 03/28/20 naltrexone 50 mg tablet 50 mg PO DAILY #30 tab 03/28/20 trazodone 100 mg tablet 100 mg PO BEDTIME #30 tab 03/28/20 Allergies Allergy/AdvReac Type Severity Reaction Status Date / Time hydrochlorothiazide Allergy Severe Anaphylaxis Verified 03/28/20 14:12 [HYDROCHLOROTHIAZIDE] lisinopril [LISINOPRIL] Allergy Severe Anaphylaxis Verified 03/28/20 14:12 Review of Systems Review of Systems ROS Unobtainable: All systems reviewed & are unremarkable except as noted in HPI and below Constitutional Constitutional: Denies chills, Denies fever(s), Denies lethargy and Denies weakness Eyes Eyes: Denies change in vision, Denies eye discharge, Denies irritation and Denies loss of vision Cardiovascular Cardiovascular: Denies chest pain, Denies irregular heart rhythm, Denies lightheadedness, Denies palpitations and Denies orthopnea Gastrointestinal Gastrointestinal: Denies abdominal pain, Denies change in bowel habits, Denies diarrhea, Denies nausea and Denies vomiting Musculoskeletal Musculoskeletal: Reports as per HPI and Reports back pain Integumentary/Breasts Skin/Breast: Reports as per HPI, Denies pruritus, Reports erythema, Denies rash and Reports wounds Neurologic Neurologic: Denies loss of vision and Denies weakness Psychiatric Psychiatric: Reports as per HPI Comments: Alcohol abuse Endocrine Endocrine: Denies palpitations Patient History Medical History Alcohol use disorder, severe, in early remission Alcoholism Cirrhosis Hypertension Major depression Surgical History History of fasciotomy 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 ) substance use type: does not use Smoking Status: Former smoker alcohol intake frequency: 3 or more drinks per day Alcohol type: hard liquor Substance Use Type: does not use Exam Initial Vital Signs Initial Vital Signs: Vital Signs Pulse Rate 80 05/19/20 20:56 Pulse Oximetry 94 05/19/20 20:56 GENERAL: Alert male slight slurring of words but appropriate and polite and in no acute distress. HEENT: Head atraumatic,EOMI, pupils reactive, face symmetric, moist mucous membranes CARDIOVASCULAR: Regular rate and rhythm without murmurs, rubs or gallops. RESPIRATORY: Breath sounds equal bilaterally, no wheezes rales or rhonchi. ABDOMEN: Soft, nontender. Normoactive bowel sounds all 4 quadrants. No guarding or rebound. : No CVA tenderness BACK: No vertebral tenderness tender right lateral lumbar area no sign of trauma no erythema or contusion EXTREMITIES: Normal range of motion, no clubbing or edema. Neurovascularly intact NEUROLOGICAL: Alert and oriented x4.Normal gait and speech. SKIN: Right lower leg has chronic venous stasis mild erythema left leg contusion noted medially just inferior to the knee Course Orders Ordered: ED Orders 05/19/20 20:55 CT cervical spine wo con Stat CT head/brain wo con Stat 05/19/20 21:17 Complete Blood Count AUTO DIFF Stat Comprehensive Metabolic Panel Stat Discontinued Medications Acetaminophen (Acetaminophen 325 Mg Tablet) 975 mg PO NOW ONE Stop: 05/19/20 21:41 Last Admin: 05/19/20 21:45 Dose: 975 mg Documented by: KALEY Vital Signs Vital signs: Vital Signs - 8 hr 05/19/20 20:56 05/19/20 20:57 05/19/20 21:00 Temperature Pulse Rate 80 81 84 Respiratory Rate Blood Pressure 132/71 119/70 Pulse Oximetry 94 95 93 05/19/20 21:01 05/19/20 21:15 05/19/20 21:30 Temperature 98.4 F Pulse Rate 79 81 Respiratory Rate 12 Blood Pressure 119/76 124/75 Pulse Oximetry 95 97 05/19/20 21:34 05/19/20 21:38 05/19/20 22:00 Temperature Pulse Rate 79 89 77 Respiratory Rate 12 Blood Pressure 129/67 129/67 138/67 Pulse Oximetry 94 93 82 L 05/19/20 22:41 Temperature Pulse Rate 78 Respiratory Rate 12 Blood Pressure 121/61 Pulse Oximetry 95 MDM - Fall Lab Data Attestation: I reviewed the patient's lab results. Result diagrams: 05/19/20 21:17 05/19/20 21:17 Labs: Lab Results 05/19/20 05/19/20 Range/Units 21:17 21:17 WBC 4.5 (4.5-11.0) X10^3/uL RBC 4.54 (4.5-5.9) X10^6/uL Hgb 13.5 (13.5-17.5) g/dL Hct 40.6 L (41-53) % MCV 89.5 (80-100) fL MCH 29.7 (26-34) PG MCHC 33.2 (30-36) % RDW 21.1 H (11.6-14.8) % Plt Count 103 L (150-400) X10^3/uL Neut % (Auto) 74.5 (50-75) % Lymph % (Auto) 15.6 L (25-40) % Marshall % (Auto) 9.6 (3-14) % Eos % (Auto) 0.0 L (2-4) % Baso % (Auto) 0.3 (0-2) % Neut # (Auto) 3400 (8497-4592) /uL Lymph # (Auto) 700 L (0268-1098) /uL Marshall # (Auto) 400 (0-900) /uL Eos # (Auto) 0 (0-450) /uL Baso # (Auto) 0 (0-100) /uL RBC Morphology See below Anisocytosis 3+ H Sodium 136 L (137-145) mmol/L Potassium 4.1 (3.4-5.1) mmol/L Chloride 99 (98-107) mmol/L Carbon Dioxide 30 (22-32) mmol/L BUN 14 (9-20) mg/dL Creatinine 0.63 L (0.66-1.25) mg/dL Estimated GFR > 60.0 (>60) mL/min BUN/Creatinine Ratio 22.2 H (6-22) Glucose 116 H (80-110) mg/dL Calcium 8.6 (8.4-10.2) mg/dL Total Bilirubin 0.8 (0.2-1.3) mg/dL AST 87 H (17-59) IU/L ALT 29 (<50) IU/L Alkaline Phosphatase 93 (38-126) U/L Total Protein 7.2 (6.3-8.2) g/dL Albumin 3.6 (3.5-5.0) g/dL Globulin 3.6 (1.7-4.1) g/dL Albumin/Globulin Ratio 1.0 (1.0-2.8) Imaging Data CT scan - head: Radiologist's Impression: PROCEDURE: CT HEAD/BRAIN WO CON INDICATIONS: fall ETOH TECHNIQUE: Noncontrast 4.5 mm thick angled axial sections acquired from the foramen magnum to the vertex, with coronal and sagittal reformats. For radiation dose reduction, the following was used: automated exposure control, adjustment of mA and/or kV according to patient size. COMPARISON: [facility], CT, CT HEAD/BRAIN WO CON, 11/17/2019, 0:55. FINDINGS: Image quality: Excellent. CSF spaces: Basal cisterns are patent. No extra-axial fluid collections. The ventricles are symmetric in size and shape. Brain: No intracranial bleeds or masses. There is cerebral volume loss for age , with resultant ventricular and sulcal prominence. There are periventricular and deep white matter chronic small vessel ischemic changes. There is intracranial internal carotid artery atherosclerosis. Skull and face: Calvarium and visualized facial bones appear intact, without suspicious lesions. Sinuses: Mild right maxillary sinus mucosal thickening. Visualized sinuses and mastoids are otherwise clear. IMPRESSION: No acute intracranial abnormality. Dictated by: Rajni Coe M.D. on 05/19/2020 at 21:21 CT - cervical spine: Radiologist's Impression: PROCEDURE: CT CERVICAL SPINE WO CON INDICATIONS: fall TECHNIQUE: Noncontrast 3 mm thick sections acquired from the skull base to the T4 level. Sagittal and coronal reformats were then constructed. For radiation dose reduction, the following was used: automated exposure control, adjustment of mA and/or kV according to patient size. COMPARISON: None. FINDINGS: Image quality: Excellent. Bones: No fractures or dislocations. Visualized superior ribs are intact. Soft tissues: Prevertebral soft tissues are normal in thickness. No paravertebral hematomas. No apical pneumothoraces. Mild right maxillary sinus mucosal thic kening. REFERENCE TEXT DELETE FROM FINAL REPORT Craniocervical Injury Classification: Occipital condyle fractures: * Type I: axial loading with minimal displacement; stable. * Type II: skull base fx extending through condyle; stable. * Type III: alar ligament avulsion fx:; unstable. [place] fractures (Rob): * Type I: posterior arches; stable. * Type II: anterior arch; stable. * Type III: bilat posterior arch with bilateral/unilateral anterior arch (Rob burst); potentially unstable depending on transverse ligament integrity. * Type IV: lateral mass fx; stable. * Type V: transverse anterior arch avulsion fx; stable. Odontoid fractures: * Type I: alar ligament oblique avulsion fx through tip; stable. * Type II: dens-body junction; unstable. Risk factors for non-union: age >50 ye ars, >6 mm displacement, or comminution at fracture site. * Type III: thru cancellous portion of dens body; can cause canal compromise. [place] fractures: * Type I: hairline fx with <2 mm translation; stable. * Type II: angulation >11 degrees, > 2 mm translation; can be unstable. * Type IIa: severe angulation w/o translation (intact ALL); unstable. * Type III: bilateral facet dislocation; unstable. Atlantoaxial rotatory subluxation and fixation: * Type I: rotatory fixation with dens as pivot point, intact alar & transverse ligaments. * Type II: transverse ligament torn, center of rotation shifts to lateral mass, <5 mm anterior displacement of atlas; unstable. * Type III: transverse and alar ligaments torn, similar to type II but with >5 mm anterior displacement of atlas; unstable. * Type IV: deficient odontoid, with posterior displacement of atlas; unstable. Subaxial Injury Classification: SLIC Scoring System. Morphology: * No abnormality: 0 * Compression: 1 * Burst: 2 * Distraction: 3 (dislocation in the vertical axis, from hyperextension or hyperflexion). Hyperflexion-distraction criteria: facet overlap <50%, facet diastasis > 2mm, posterior disk spac widening with angulation >11 degrees. * Translation or rotation: 4. Rotation criteria: listhesis >3.5 mm but <50% of caudal vertebral body width. Translation criteria: listhesis >3.5 mm and usually >50% of caudal vertebral body width. 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 * Intact: 0 * Indeterminate: 1 * Disrupted: 2 Neurologic status: * Intact: 0 * Root injury: 1 * Complete cord injury: 2 * Incomplete cord injury: 3 * Incomplete cord injury with compression: 4 Total SLIC score: 3 or less is non-surgical, 4 is indeterminate, 5 or more is surgical. IMPRESSION: No fracture. Dictated by: Rajni Coe M.D. on 05/19/2020 at 21:22 Approved by: Rajni Coe M.D. on 05/19/2020 at 21:23 [facility] Narrative Medical decision making narrative: Patient is overall feeling well he has no abnormality CT scans are negative. He has minimal right flank pain no midline vertebral tenderness this time I do not think imaging is indicated of his spine at this time. He is clinically sober, without slurring of speech and has a steady gait he also has a ride home. At this time I have reviewed with him his results, he is given Tylenol for pain. Discharge Plan Departure Patient Disposition: Home Clinical Impression: Visual field defect Lumbar spine strain Qualifiers: Encounter type: initial encounter Qualified Code(s): S39.012A - Strain of muscle, fascia and tendon of lower back, initial encounter Alcohol intoxication Qualifiers: Complication of substance-induced condition: uncomplicated Qualified Code(s): F10.920 - Alcohol use, unspecified with intoxication, uncomplicated Activity Restrictions/Additional Instructions: *You have been diagnosed with back strain *What to do: At this time this is likely musculoskeletal. Increase activity as tolerated. *Continue to take medications as directed *Follow up with your primary care provider in 2-3 days *Return to ER if you should have increasing pain, weakness or any new, worsening or concerning symptoms Prescriptions: No Action multivitamin [Daily Multi-Vitamin] Tablet 1 tab PO QAM RF: 0 vitamin B complex Tablet 1 tab PO DAILY RF: 0 mecobalamin (vitamin B12) 500 mg PO DAILY RF: 0 calcium gluconate PO DAILY RF: 0 Adult Probiotic 3 billion cell capsule 3,000 mmu cells PO DAILY RF: 0 aspirin [Adult Low Dose Aspirin] 81 mg tablet,delayed release (DR/EC) 81 mg PO DAILY RF: 0 cholecalciferol (vitamin D3) 25 mcg (1,000 unit) capsule 4,000 unit PO DAILY RF: 0 Ultra CoQ10 75 mg capsule 75 mg PO DAILY RF: 0 magnesium PO RF: 0 ascorbic acid (vitamin C) 500 mg capsule 4,000 mg PO DAILY RF: 0 methocarbamol 750 mg tablet 750 mg PO DAILY RF: 0 omeprazole 20 mg capsule,delayed release(DR/EC) 20 mg PO DAILY RF: 0 melatonin 100 PO BEDTIME PRN (Reason: Sleep) RF: 0 duloxetine 60 mg capsule,delayed release(DR/EC) 60 mg PO DAILY Qty: 30 RF: 5 gabapentin 600 mg tablet 600 mg PO TID Qty: 90 RF: 3 naltrexone 50 mg tablet 50 mg PO DAILY Qty: 30 RF: 3 trazodone 100 mg tablet 100 mg PO BEDTIME Qty: 30 RF: 5 tamsulosin [Flomax] 0.4 mg capsule 0.8 mg PO DAILY Qty: 0 RF: 0 ferrous sulfate 325 mg (65 mg iron) Tablet 325 mg PO DAILY Qty: 90 RF: 0 testosterone cypionate 200 mg/mL oil 200 mg IM Q3W RF: 0 Referrals: Maria Teresa Talley PA-C [Primary Care Provider] -
[2020-05-19 21:43] LABS: Basophils Absolute Auto 0 /uL (0-100); Basophils Percent Auto 0.3 % (0-2); Eosinophils Absolute Auto 0 /uL (0-450); Hematocrit 40.6 % (41-53); Hemoglobin 13.5 g/dL (13.5-17.5); Lymphocytes Absolute Auto 700 /uL (1100-4500); Lymphocytes Percent Auto 15.6 % (25-40); Mean Corpuscular HGB Conc 33.2 % (30-36); Mean Corpuscular Hemoglobin 29.7 PG (26-34); Mean Corpuscular Volume 89.5 fL (80-100); Monocytes Absolute Auto 400 /uL (0-900); Monocytes Percent Auto 9.6 % (3-14); Neutrophils Absolute Auto 3400 /uL (1500-7000); Neutrophils Percent Auto 74.5 % (50-75); Platelet Count 103 X10^3/uL (150-400); Red Blood Cell Count 4.54 X10^6/uL (4.5-5.9); Red Cell Distribution Width 21.1 % (11.6-14.8); White Blood Cell Count 4.5 X10^3/uL (4.5-11.0)
[2020-05-19] MEDS: ACETAMINOPHEN 325 MG TABLET 975 MG PO (21:45)
[2020-05-19 21:51] LABS: Alanine Aminotransferase 29 IU/L (<50); Albumin 3.6 g/dL (3.5-5.0); Alkaline Phosphatase 93 U/L (38-126); Aspartate Aminotransferase 87 IU/L (17-59); BUN Creatinine Ratio 22.2 (6-22); Bilirubin Total 0.8 mg/dL (0.2-1.3); Blood Urea Nitrogen 14 mg/dL (9-20); Calcium 8.6 mg/dL (8.4-10.2); Carbon Dioxide 30 mmol/L (22-32); Chloride 99 mmol/L (98-107); Estimated Glomerular Filt Rate > 60.0 mL/min (>60); Globulin 3.6 g/dL (1.7-4.1); Glucose 116 mg/dL (80-110); HEMOLYSIS < 15 (0-50); Potassium 4.1 mmol/L (3.4-5.1); Sodium 136 mmol/L (137-145); Total Protein 7.2 g/dL (6.3-8.2)
--- NOTE | 2020-05-19 21:51 | PC.NURSE ---
the patient complains of falling and not remembering it. He was told by his friend that he fell over and hit a chair. He has a bump on his left knee. He also has an old wound on his right leg that is healing and the skin appears to fully in tact. His lower back also hurts. He said the wound on his left knee is old and happened a few weeks ago.
[2020-05-19 21:55] LABS: Add Manual Diff / Slide Review SLIDE REVIEW
[2020-05-19 23:19] LABS: Anisocytosis 3+
== END 2020-05-19 22:44 | disposition home or self-care (01) ==
PROVIDERS: Emergency Provider Emergency Medicine; PCP Student in an Organized Health Care Education/Training Program
DX: H53.40 Unspecified visual field defects (principal); S39.012A Strain of muscle, fascia and tendon of lower back, initial encounter; F10.920 Alcohol use, unspecified with intoxication, uncomplicated; W19.XXXA Unspecified fall, initial encounter; I87.8 Other specified disorders of veins; I10 Essential (primary) hypertension; K74.60 Unspecified cirrhosis of liver
CPT/HCPCS: 36415; 70450; 72125; 80053; 85025; 99281; 99284

== ENCOUNTER 2020-05-21 08:52 | Emergency (ER) | payer MEDICARE, OTHER, SELFPAY ==
[2020-05-21] VITALS (8 sets, daily range): BP systolic 140–169; BP diastolic 64–78; PULSE 71–87; RESP 12–25; TEMP 36.6; O2SAT 95–97; BMI 38.0
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
--- NOTE | 2020-05-21 11:02 | DI.CT.S_ITS ---
PROCEDURE: CT HEAD/BRAIN WO CON INDICATIONS: fall, etoh, ? hit head TECHNIQUE: Noncontrast 4.5 mm thick angled axial sections acquired from the foramen magnum to the vertex, with coronal and sagittal reformats. For radiation dose reduction, the following was used: automated exposure control, adjustment of mA and/or kV according to patient size. COMPARISON: [facility], CT, HEAD WITHOUT CONTRAST, 04/10/2017, 19:03. [facility], CT, CT HEAD/BRAIN WO CON, 11/17/2019, 0:55. [facility], CT, CT ORBIT BI WO CON, 11/17/2019, 0:55. [facility], CT, CT HEAD/BRAIN WO CON, 05/19/2020, 20:56. FINDINGS: Image quality: Excellent. CSF spaces: Basal cisterns are patent. No extra-axial fluid collections. The ventricles are symmetric in size and shape. Brain: No intracranial bleeds or masses. There is cerebral volume loss for age, with resultant ventricular and sulcal prominence. There are periventricular and deep white matter chronic small vessel ischemic changes. There is intracranial internal carotid artery atherosclerosis. Skull and face: Calvarium and visualized facial bones appear intact, without suspicious lesions. Sinuses: Moderate mucosal thickening is seen within the right maxillary sinus. Mild mucosal thickening is seen elsewhere within the paranasal sinuses. No abnormal fluid is seen within the mastoid air cells. IMPRESSION: No acute intracranial hemorrhage is seen. No acute intracranial process is seen. Note is made of age-appropriate brain parenchymal volume loss and chronic small vessel ischemic changes. Dictated by: Filiberto Adams M.D. on 05/21/2020 at 10:28 Approved by: Fiilberto Adams M.D. on 05/21/2020 at 10:30
--- NOTE | 2020-05-21 11:02 | DI.RAD.S_ITS ---
PROCEDURE: XR LUMBAR SPINE 2-3V INDICATIONS: fall, etoh, ? hit head TECHNIQUE: 3 views of the lumbar spine were acquired. COMPARISON: None. FINDINGS: Bones: 5 [id number] vertebrae are present. There is normal bony alignment moderate chronic appearing wedging of L4. Mild chronic appearing wedging of L5. Multilevel degenerative disc and facet disease. No suspicious bony lesions. Soft tissues: Overlying bowel gas pattern is normal. No suspicious soft tissue calcifications. IMPRESSION: 1. Multilevel degenerative disc and facet disease. 2. Chronic appearing lower lumbar compression fractures. No definite acute fracture. No osseous lesion. If symptoms and/or clinical suspicion for pathology persist, further assessment with repeat, or advanced imaging (e.g., CT, MRI, or bone scan) may be helpful for further assessment. Dictated by: Rajni Coe M.D. on 05/21/2020 at 11:35 Approved by: Rajni Coe M.D. on 05/21/2020 at 11:42
[2020-05-21 11:24] LABS: UR Morphine/Opiate cutoff 300 Negative (Negative); Ur Creatinine Normal (Normal); Ur Specific Gravity Normal (Normal); Urine Amphetamines Negative (Negative); Urine Barbiturates Negative (Negative); Urine Benzodiazepines Negative (Negative); Urine Cocaine Negative (Negative); Urine MDMA Negative (Negative); Urine Methadone Negative (Negative); Urine Methamphetamines Negative (Negative); Urine Oxycodone Negative (Negative); Urine Phencyclidine Negative (Negative); Urine Tetrahydrocannabinol Positive (Negative); Urine Tricyclic Antidepressant Negative (Negative); Urine pH Normal (Normal)
[2020-05-21] MEDS: MAGNESIUM SULFATE 2 GM, FOLIC ACID 1 MG, THIAMINE 100 MG, MULTIVITAMIN 10 ML in SODIUM ... IV (11:43)
[2020-05-21 12:07] LABS: Alanine Aminotransferase 28 IU/L (<50); Albumin 3.7 g/dL (3.5-5.0); Albumin Globulin Ratio 1.1 (1.0-2.8); Alkaline Phosphatase 97 U/L (38-126); Aspartate Aminotransferase 70 IU/L (17-59); BUN Creatinine Ratio 33.3 (6-22); Bilirubin Total 0.8 mg/dL (0.2-1.3); Bilirubin Unconjugated 0.5 mg/dL (0.0-1.1); Blood Urea Nitrogen 16 mg/dL (9-20); Calcium 8.8 mg/dL (8.4-10.2); Carbon Dioxide 26 mmol/L (22-32); Chloride 103 mmol/L (98-107); Estimated Glomerular Filt Rate > 60.0 mL/min (>60); Ethanol (ETOH) 132 mg/dL; Globulin 3.3 g/dL (1.7-4.1); Glucose 83 mg/dL (80-110); HEMOLYSIS 46 (0-50); Lipase 38 U/L (23-300); Magnesium 1.3 mg/dL (1.6-2.3); Potassium 4.3 mmol/L (3.4-5.1); Sodium 138 mmol/L (137-145)
[2020-05-21 12:09] LABS: Add Manual Diff / Slide Review NO; Basophils Absolute Auto 100 /uL (0-100); Basophils Percent Auto 0.7 % (0-2); Eosinophils Absolute Auto 0 /uL (0-450); Eosinophils Percent Auto 0.1 % (2-4); Hematocrit 39.9 % (41-53); Hemoglobin 13.2 g/dL (13.5-17.5); Lymphocytes Absolute Auto 900 /uL (1100-4500); Lymphocytes Percent Auto 12.5 % (25-40); Mean Corpuscular HGB Conc 32.9 % (30-36); Mean Corpuscular Hemoglobin 29.7 PG (26-34); Mean Corpuscular Volume 90.2 fL (80-100); Monocytes Absolute Auto 500 /uL (0-900); Monocytes Percent Auto 7.3 % (3-14); Neutrophils Absolute Auto 5700 /uL (1500-7000); Neutrophils Percent Auto 79.4 % (50-75); Platelet Count 90 X10^3/uL (150-400); Red Blood Cell Count 4.43 X10^6/uL (4.5-5.9); Red Cell Distribution Width 21.1 % (11.6-14.8); White Blood Cell Count 7.2 X10^3/uL (4.5-11.0)
[2020-05-21 12:28] LABS: Procalcitonin 0.22 ng/mL (<0.5)
[2020-05-21 12:31] LABS: Anisocytosis 2+; Hypochromasia 1+; Poikilocytosis 1+
--- NOTE | 2020-05-21 12:40 | PC.NURSE ---
Patient is in room resting but complains of pain when trying to move uppward in bed. When he does move he complains of pain and his HR elevates to 130s and then falls back down after movement.
[2020-05-21] MEDS: LORazepam 2 MG/ML INJ 1 MG IV (13:19)
[2020-05-21 16:31] LABS: Bacteria Urine None Seen; RBC Urine None Seen (0-5/HPF); WBC Urine None Seen (0-5/HPF)
[2020-05-21 16:54] LABS: Culture Indicated Urine Cult Not Indicated; Squamous Epithelial Cell Urine 5-10 /HPF (0-5/HPF)
--- NOTE | 2020-06-07 10:51 | PC.NURSE ---
IV magnesium was stopped at 1530.
== END 2020-05-21 15:32 | disposition home or self-care (01) ==
PROVIDERS: Emergency Provider Emergency Medicine; PCP Student in an Organized Health Care Education/Training Program
DX: S09.90XA Unspecified injury of head, initial encounter (principal); W19.XXXA Unspecified fall, initial encounter; F10.229 Alcohol dependence with intoxication, unspecified; F12.90 Cannabis use, unspecified, uncomplicated; Y90.6 Blood alcohol level of 120-199 mg/100 ml; S32.000A Wedge compression fracture of unspecified lumbar vertebra, initial encounter for closed fracture; M54.5 Low back pain; R44.3 Hallucinations, unspecified; E83.42 Hypomagnesemia
CPT/HCPCS: 70450; 72100; 80053; 80076; 80305; 80320; 81003; 81015; 83690; 83735; 84145; 85025; 93005; 96365; 96366; 96375; 99283; 99284; J2060; J3475

== ENCOUNTER 2020-05-26 10:15 | Emergency (ER) | payer MEDICARE, OTHER, SELFPAY ==
[2020-05-26] VITALS (9 sets, daily range): BP systolic 134–168; BP diastolic 71–82; PULSE 83–93; RESP 16; TEMP 36.6; O2SAT 89–97; BMI 38.0
--- NOTE | 2020-05-26 10:58 | ED.ALCOHOL ---
HPI - Alcohol General Chief Complaint: Toxicology Problem Stated Complaint: ETOH Time Seen by Provider: 05/26/20 10:34 Source: patient Mode of arrival: EMS Limitations: no limitations History of Present Illness HPI narrative: 64-year-old gentleman with chronic alcohol issues who has been seen for similar complaints after a period of abstinence. He has been here in November, April and most recently 1 week ago. That he has actually been seen 3 times in the last week 2 of which were related to falls. He does want to stop drinking at this point and recognizes that he simply not able to without help. He did call his primary care physician who has given him tapers in the past and her partner declined and told him to simply cut back on his alcohol use. He states that he does have a safe place to live however does not live with anybody other than his dog. He has an estranged who can be helpful and a close friend who will come visit as well as multiple a friend's including an AA sponsor with whom he is talking on the phone right now. Related Data Home Medications Medication Instructions Recorded Confirmed tamsulosin 0.4 mg capsule 0.8 mg PO DAILY #0 cap 06/23/19 03/28/20 testosterone cypionate 200 mg/mL 200 mg IM Q3W ml 06/23/19 03/28/20 intramuscular oil ascorbic acid (vitamin C) 500 mg 4,000 mg PO DAILY cap 10/11/19 03/28/20 capsule aspirin 81 mg tablet,delayed 81 mg PO DAILY 10/11/19 03/28/20 release calcium gluconate PO DAILY 10/11/19 03/28/20 cholecalciferol (vitamin D3) 25 4,000 unit PO DAILY cap 10/11/19 03/28/20 mcg (1,000 unit) capsule coenzyme Q10 75 mg capsule 75 mg PO DAILY 10/11/19 03/28/20 lactobacillus combination no.8 3 3,000 mmu cells PO DAILY 10/11/19 03/28/20 billion cell capsule magnesium PO 10/11/19 03/28/20 mecobalamin (vitamin B12) 500 mg PO DAILY 10/11/19 03/28/20 melatonin 100 PO BEDTIME PRN 10/11/19 03/28/20 methocarbamol 750 mg tablet 750 mg PO DAILY tab 10/11/19 03/28/20 multivitamin 1 tab PO QAM 10/11/19 03/28/20 omeprazole 20 mg capsule,delayed 20 mg PO DAILY 10/11/19 03/28/20 release vitamin B complex 1 tab PO DAILY 10/11/19 03/28/20 Previous Rx's Medication Instructions Recorded ferrous sulfate 325 mg PO DAILY #90 tab 01/24/20 duloxetine 60 mg capsule,delayed 60 mg PO DAILY #30 cap 03/28/20 release gabapentin 600 mg tablet 600 mg PO TID #90 tab 03/28/20 naltrexone 50 mg tablet 50 mg PO DAILY #30 tab 03/28/20 trazodone 100 mg tablet 100 mg PO BEDTIME #30 tab 03/28/20 cephalexin [Keflex] 500 mg PO QID #28 cap 05/21/20 Allergies Allergy/AdvReac Type Severity Reaction Status Date / Time hydrochlorothiazide Allergy Severe Anaphylaxis Verified 05/26/20 10:28 [HYDROCHLOROTHIAZIDE] lisinopril [LISINOPRIL] Allergy Severe Anaphylaxis Verified 05/26/20 10:28 Review of Systems Review of Systems Narrative: Multiple recent falls related to drinking Minimal non alcohol caloric intake over the last week No significant weight changes Right lower extremity anterior desir ulcer with mild erythema. 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 ) substance use type: does not use Smoking Status: Former smoker alcohol intake frequency: 3 or more drinks per day Alcohol type: hard liquor Substance Use Type: does not use Exam Narrative Exam Narrative: General: Fatigued, chronically ill-appearing old contusion around the left eye and the right rastafarian both with bruises that are in the purple and green healing stages HEENT: Moist mucous membranes, normal sclera with reactive pupils, extraocular eye movement is intact bilaterally he has mild bilateral exophthalmos Neck: No JVD, supple Respiratory: Lungs are clear to auscultation, no wheezing no rales no rhonchi. Full and symmetrical air movement Cardiac: Regular rate and rhythm no murmurs no bruits Abdomen: Soft,nontender good bowel tones, no flank pain. Postsurgical changes after a 25 lb penectomy (no umbilicus) Skin: Warm and dry, chronic venous stasis changes in the lower extremities. Right greater than the left. Mild anterior desir ulceration without abscess, mild cellulitis that does appear to be improving Neurologic: Mildly intoxicated with carefully enunciated speech, no obvious asymmetries or abnormalities Extremities: No new trauma, well perfused Psych: Cooperative, moderate insight, fluent speech pattern no hallucinations Initial Vital Signs Initial Vital Signs: Vital Signs Blood Pressure 168/82 H 05/26/20 10:21 Course Orders Ordered: ED Orders 05/26/20 11:00 Complete Blood Count AUTO DIFF Stat Comprehensive Metabolic Panel Stat Ethanol (ETOH) Stat Hepatic (Liver) Panel Stat Lipase Stat Magnesium Stat 05/26/20 13:00 Urine Drug Screen, Rapid Stat Urine Microscopic Stat Discontinued Medications Sodium Chloride (Normal Saline 0.9%) 1,000 mls @ 1,000 mls/hr IV BOLUS ONE Stop: 05/26/20 12:23 Last Admin: 05/26/20 11:32 Dose: 1,000 mls/hr Documented by: JOAQUÍN Thiamine HCl 100 mg/ Dextrose 51 mls @ 204 mls/hr IV NOW ONE Stop: 05/26/20 11:25 Last Admin: 05/26/20 11:54 Dose: 204 mls/hr Documented by: JOAQUÍN Multivitamins (Multivitamin 1 Tablet) 1 tab PO NOW ONE Stop: 05/26/20 11:25 Last Admin: 05/26/20 11:54 Dose: 1 tab Documented by: JOAQUÍN Vital Signs Vital signs: Vital Signs - 8 hr 05/26/20 10:21 05/26/20 10:22 05/26/20 10:23 Temperature 97.8 F Pulse Rate 91 H 93 H Respiratory Rate 16 Blood Pressure 168/82 H 168/82 H Pulse Oximetry 93 93 05/26/20 10:30 05/26/20 11:35 05/26/20 12:34 Temperature Pulse Rate 83 89 89 Respiratory Rate Blood Pressure 145/81 H Pulse Oximetry 93 94 89 L 05/26/20 12:35 05/26/20 13:16 Temperature Pulse Rate 90 84 Respiratory Rate Blood Pressure 134/71 Pulse Oximetry 96 97 MDM - Alcohol Medical Records Attestation: I reviewed the patient's medical records. Lab Data Attestation: I reviewed the patient's lab results. Lab results narrative: Mildly chronically elevated AST consistent with alcohol use Result diagrams: 05/26/20 11:00 05/26/20 11:00 Labs: Lab Results 05/26/20 05/26/20 05/26/20 Range/Units 11:00 11:00 13:00 WBC 4.1 L (4.5-11.0) X10^3/uL RBC 4.94 (4.5-5.9) X10^6/uL Hgb 14.8 (13.5-17.5) g/dL Hct 44.8 (41-53) % MCV 90.6 (80-100) fL MCH 29.9 (26-34) PG MCHC 33.0 (30-36) % RDW 21.1 H (11.6-14.8) % Plt Count 101 L (150-400) X10^3/uL Neut % (Auto) 24.0 L (50-75) % Lymph % (Auto) 59.7 H (25-40) % [place] % (Auto) 13.7 (3-14) % Eos % (Auto) 1.5 L (2-4) % Baso % (Auto) 1.1 (0-2) % Neut # (Auto) 1000 L (3728-1103) /uL Lymph # (Auto) 2400 (4388-1443) /uL [place] # (Auto) 600 (0-900) /uL Eos # (Auto) 100 (0-450) /uL Baso # (Auto) 0 (0-100) /uL Platelet Estimate Decreased on smear RBC Morphology Not Reportable Anisocytosis 3+ H Target Cells 1+ H Sodium 143 (137-145) mmol/L Potassium 4.0 (3.4-5.1) mmol/L Chloride 99 (98-107) mmol/L Carbon Dioxide 38 H (22-32) mmol/L BUN 12 (9-20) mg/dL Creatinine 0.59 L (0.66-1.25) mg/dL Estimated GFR > 60.0 (>60) mL/min BUN/Creatinine Ratio 20.3 (6-22) Glucose 131 H (80-110) mg/dL Calcium 9.5 (8.4-10.2) mg/dL Magnesium 1.5 L (1.6-2.3) mg/dL Total Bilirubin 1.1 (0.2-1.3) mg/dL Conjugated Bilirubin 0.0 (0.0-0.3) md/dL Unconjugated Bilirubin 0.7 (0.0-1.1) mg/dL AST 107 H (17-59) IU/L ALT 33 (<50) IU/L Alkaline Phosphatase 230 H D (38-126) U/L Total Protein 8.1 (6.3-8.2) g/dL Albumin 4.0 (3.5-5.0) g/dL Globulin 4.1 (1.7-4.1) g/dL Albumin/Globulin Ratio 1.0 (1.0-2.8) Lipase 158 D (23-300) U/L Urine RBC (0-5/HPF) Urine WBC (0-5/HPF) Ur Squamous Epith Cells (0-5/HPF) Urine Bacteria (None) Ur Culture Indicated? U Opiates 300ng/mL cut Negative (Negative) Ur Oxycodone Screen Negative (Negative) Urine Methadone Screen Negative (Negative) Ur Barbiturates Screen Negative (Negative) U Tricyclic Antidepress Negative (Negative) Ur Phencyclidine Scrn Negative (Negative) Ur Amphetamines Screen Negative (Negative) U Methamphetamines Scrn Negative (Negative) Ur MDMA Scrn (Ecstasy) Negative (Negative) U Benzodiazepines Scrn Negative (Negative) Urine Cocaine Screen Negative (Negative) U Marijuana (THC) Screen Positive H (Negative) Ethyl Alcohol 351 H ( - 10) mg/dL 05/26/20 Range/Units 13:00 WBC (4.5-11.0) X10^3/uL RBC (4.5-5.9) X10^6/uL Hgb (13.5-17.5) g/dL Hct (41-53) % MCV (80-100) fL MCH (26-34) PG MCHC (30-36) % RDW (11.6-14.8) % Plt Count (150-400) X10^3/uL Neut % (Auto) (50-75) % Lymph % (Auto) (25-40) % [place] % (Auto) (3-14) % Eos % (Auto) (2-4) % Baso % (Auto) (0-2) % Neut # (Auto) (2532-6169) /uL Lymph # (Auto) (9930-2821) /uL Whitfield # (Auto) (0-900) /uL Eos # (Auto) (0-450) /uL Baso # (Auto) (0-100) /uL Platelet Estimate RBC Morphology Anisocytosis Target Cells Sodium (137-145) mmol/L Potassium (3.4-5.1) mmol/L Chloride (98-107) mmol/L Carbon Dioxide (22-32) mmol/L BUN (9-20) mg/dL Creatinine (0.66-1.25) mg/dL Estimated GFR (>60) mL/min BUN/Creatinine Ratio (6-22) Glucose (80-110) mg/dL Calcium (8.4-10.2) mg/dL Magnesium (1.6-2.3) mg/dL Total Bilirubin (0.2-1.3) mg/dL Conjugated Bilirubin (0.0-0.3) md/dL Unconjugated Bilirubin (0.0-1.1) mg/dL AST (17-59) IU/L ALT (<50) IU/L Alkaline Phosphatase (38-126) U/L Total Protein (6.3-8.2) g/dL Albumin (3.5-5.0) g/dL Globulin (1.7-4.1) g/dL Albumin/Globulin Ratio (1.0-2.8) Lipase (23-300) U/L Urine RBC None seen (0-5/HPF) Urine WBC None seen (0-5/HPF) Ur Squamous Epith Cells 0-1 /hpf (0-5/HPF) Urine Bacteria None seen (None) Ur Culture Indicated? Cult not indicated U Opiates 300ng/mL cut (Negative) Ur Oxycodone Screen (Negative) Urine Methadone Screen (Negative) Ur Barbiturates Screen (Negative) U Tricyclic Antidepress (Negative) Ur Phencyclidine Scrn (Negative) Ur Amphetamines Screen (Negative) U Methamphetamines Scrn (Negative) Ur MDMA Scrn (Ecstasy) (Negative) U Benzodiazepines Scrn (Negative) Urine Cocaine Screen (Negative) U Marijuana (THC) Screen (Negative) Ethyl Alcohol ( - 10) mg/dL Urine Dip Bedside Urine Glucose Negative Bedside Urine Bilirubin - Negative Bedside Urine Ketone +/- 5 Urine Specific [place] 1.020 Bedside Urine Occult Blood - Negative Bedside Urine pH 7 Bedside Urine Protein + 30 Bedside Urine Urobilinogen - Negative Bedside Urine Nitrite - Negative Bedside Urine Leukocytes - Negative Esterase MDM Narrative Medical decision making narrative: 64-year-old gentleman with severe alcohol use disorder has been drinking heavily over the past few weeks. Requesting help with stopping drinking and typically has required benzodiazepine tapers to be able to completely get rid of alcohol. He has been through both inpatient and outpatient treatments 4. He does have a safe place to live, he has an AA sponsor, goes to AA meetings regularly has a from whom he is estranged but who is quite supportive He has an appointment his primary care physician on Thursday. Labs are reassuring. Alcohol level is at 3:50 a.m. which is exactly as he of predicted it would be. Will give him a Librium taper. Also talked about inpatient treatment again knowing that he clearly states that he wants to stop drinking is doing all of the right things in terms of AA meetings and still is unable to maintain his sobriety. Discharge Plan Departure Prescriptions: No Action multivitamin [Daily Multi-Vitamin] Tablet 1 tab PO QAM RF: 0 vitamin B complex Tablet 1 tab PO DAILY RF: 0 mecobalamin (vitamin B12) 500 mg PO DAILY RF: 0 calcium gluconate PO DAILY RF: 0 Adult Probiotic 3 billion cell capsule 3,000 mmu cells PO DAILY RF: 0 aspirin [Adult Low Dose Aspirin] 81 mg tablet,delayed release (DR/EC) 81 mg PO DAILY RF: 0 cholecalciferol (vitamin D3) 25 mcg (1,000 unit) capsule 4,000 unit PO DAILY RF: 0 Ultra CoQ10 75 mg capsule 75 mg PO DAILY RF: 0 magnesium PO RF: 0 ascorbic acid (vitamin C) 500 mg capsule 4,000 mg PO DAILY RF: 0 methocarbamol 750 mg tablet 750 mg PO DAILY RF: 0 omeprazole 20 mg capsule,delayed release(DR/EC) 20 mg PO DAILY RF: 0 melatonin 100 PO BEDTIME PRN (Reason: Sleep) RF: 0 duloxetine 60 mg capsule,delayed release(DR/EC) 60 mg PO DAILY Qty: 30 RF: 5 gabapentin 600 mg tablet 600 mg PO TID Qty: 90 RF: 3 naltrexone 50 mg tablet 50 mg PO DAILY Qty: 30 RF: 3 trazodone 100 mg tablet 100 mg PO BEDTIME Qty: 30 RF: 5 tamsulosin [Flomax] 0.4 mg capsule 0.8 mg PO DAILY Qty: 0 RF: 0 ferrous sulfate 325 mg (65 mg iron) Tablet 325 mg PO DAILY Qty: 90 RF: 0 cephalexin [Keflex] 500 mg capsule 500 mg PO QID Qty: 28 RF: 0 testosterone cypionate 200 mg/mL oil 200 mg IM Q3W RF: 0
[2020-05-26] MEDS: SODIUM CHLORIDE 0.9% 1,000 ML 1000 ML IV (11:32)
[2020-05-26 11:41] LABS: Alanine Aminotransferase 33 IU/L (<50); Alkaline Phosphatase 230 U/L (38-126); Aspartate Aminotransferase 107 IU/L (17-59); BUN Creatinine Ratio 20.3 (6-22); Bilirubin Total 1.1 mg/dL (0.2-1.3); Bilirubin Unconjugated 0.7 mg/dL (0.0-1.1); Blood Urea Nitrogen 12 mg/dL (9-20); Calcium 9.5 mg/dL (8.4-10.2); Carbon Dioxide 38 mmol/L (22-32); Chloride 99 mmol/L (98-107); Estimated Glomerular Filt Rate > 60.0 mL/min (>60); Globulin 4.1 g/dL (1.7-4.1); Glucose 131 mg/dL (80-110); Lipase 158 U/L (23-300); Magnesium 1.5 mg/dL (1.6-2.3); Sodium 143 mmol/L (137-145); Total Protein 8.1 g/dL (6.3-8.2)
[2020-05-26 11:46] LABS: Add Manual Diff / Slide Review NO; Basophils Absolute Auto 0 /uL (0-100); Basophils Percent Auto 1.1 % (0-2); Eosinophils Absolute Auto 100 /uL (0-450); Eosinophils Percent Auto 1.5 % (2-4); Hematocrit 44.8 % (41-53); Hemoglobin 14.8 g/dL (13.5-17.5); Lymphocytes Absolute Auto 2400 /uL (1100-4500); Lymphocytes Percent Auto 59.7 % (25-40); Mean Corpuscular Hemoglobin 29.9 PG (26-34); Mean Corpuscular Volume 90.6 fL (80-100); Monocytes Absolute Auto 600 /uL (0-900); Monocytes Percent Auto 13.7 % (3-14); Neutrophils Absolute Auto 1000 /uL (1500-7000); Red Blood Cell Count 4.94 X10^6/uL (4.5-5.9); Red Cell Distribution Width 21.1 % (11.6-14.8); White Blood Cell Count 4.1 X10^3/uL (4.5-11.0)
[2020-05-26 11:49] LABS: Ethanol (ETOH) 351 mg/dL; HEMOLYSIS 56 (0-50)
[2020-05-26] MEDS: THIAMINE 100 MG in DEXTROSE 5 % IN WATER 50 ML 204 ML IV (11:54)
[2020-05-26] MEDS: MULTIVITAMIN 1 TABLET 1 TAB PO (11:54)
[2020-05-26 12:33] LABS: Anisocytosis 3+; Platelet Count 101 X10^3/uL (150-400); Platelet Estimate Decreased on smear
[2020-05-26 12:34] LABS: Target Cells 1+
[2020-05-26 13:18] LABS: Bacteria Urine None Seen; RBC Urine None Seen (0-5/HPF); WBC Urine None Seen (0-5/HPF)
[2020-05-26 13:22] LABS: UR Morphine/Opiate cutoff 300 Negative (Negative); Ur Creatinine Normal (Normal); Ur Specific Gravity Normal (Normal); Urine Amphetamines Negative (Negative); Urine Barbiturates Negative (Negative); Urine Benzodiazepines Negative (Negative); Urine Cocaine Negative (Negative); Urine MDMA Negative (Negative); Urine Methadone Negative (Negative); Urine Methamphetamines Negative (Negative); Urine Oxycodone Negative (Negative); Urine Phencyclidine Negative (Negative); Urine Tetrahydrocannabinol Positive (Negative); Urine Tricyclic Antidepressant Negative (Negative); Urine pH Normal (Normal)
[2020-05-26 13:36] LABS: Culture Indicated Urine Cult Not Indicated; Squamous Epithelial Cell Urine 0-1 /HPF (0-5/HPF)
--- NOTE | 2020-05-26 13:44 | PC.NURSE ---
pt comes in today asking for help to quit drinking ETOH, pt drinks at least 1 pint/day. Pt is A&O with no visible signs of withdrawal.
== END 2020-05-26 15:00 | disposition home or self-care (01) ==
PROVIDERS: Emergency Provider Emergency Medicine; PCP Student in an Organized Health Care Education/Training Program
DX: F10.21 Alcohol dependence, in remission (principal)
CPT/HCPCS: 36415; 80053; 80076; 80305; 80320; 81003; 81015; 83690; 83735; 85025; 96360; 99283; 99284

== ENCOUNTER 2020-06-17 22:11 | Emergency (ER) | payer MEDICARE, OTHER, SELFPAY ==
[2020-06-17 22:18] VITALS: BP 159/79; PULSE 93; RESP 14; TEMP 37.1; O2SAT 98; BMI 36.5
--- NOTE | 2020-06-17 22:21 | DI.CT.S_ITS ---
PROCEDURE: CT CERVICAL SPINE WO CON INDICATIONS: ETOH and fall TECHNIQUE: Noncontrast 3 mm thick sections acquired from the skull base to the T4 level. Sagittal and coronal reformats were then constructed. For radiation dose reduction, the following was used: automated exposure control, adjustment of mA and/or kV according to patient size. COMPARISON: [facility], CT, CT CERVICAL SPINE WO CON, 05/19/2020, 20:56. FINDINGS: Image quality: Excellent. Bones: No fractures or dislocations. Visualized superior ribs are intact. There is moderately severe mid and lower cervical degenerative changes but no trauma found. Soft tissues: Prevertebral soft tissues are normal in thickness. No paravertebral hematomas. No apical pneumothoraces. IMPRESSION: No trauma found. Moderately severe degenerative disc disease and facet osteoarthritis over the mid and lower cervical spine. Dictated by: Rob Leigh M.D. on 06/18/2020 at 8:13 Approved by: Rob Leigh M.D. on 06/18/2020 at 8:24
--- NOTE | 2020-06-17 22:21 | DI.CT.S_ITS ---
PROCEDURE: CT HEAD/BRAIN WO CON INDICATIONS: ETOH and fall TECHNIQUE: Noncontrast 4.5 mm thick angled axial sections acquired from the foramen magnum to the vertex, with coronal and sagittal reformats. For radiation dose reduction, the following was used: automated exposure control, adjustment of mA and/or kV according to patient size. COMPARISON: [facility], CT, CT HEAD/BRAIN WO CON, 05/21/2020, 11:15. [facility], CT, CT HEAD/BRAIN WO CON, 05/19/2020, 20:56. FINDINGS: Image quality: Excellent. CSF spaces: Basal cisterns are patent. No extra-axial fluid collections. Ventricles are normal in size and shape. Brain: No midline shift. No intracranial masses or hemorrhage. Devine-white matter interface is normal. Skull and face: Calvarium and visualized facial bones are intact, without suspicious lesions. Mild right frontal parietal soft tissue swelling without underlying skull fracture. Sinuses: Visualized sinuses and mastoids are clear. IMPRESSION: No skull fracture or brain injury found, no intracranial hemorrhage identified. Note: These findings are concordant with the preliminary interpretation. Dictated by: Rob Leigh M.D. on 06/18/2020 at 8:10 Approved by: Rob Leigh M.D. on 06/18/2020 at 8:13
--- NOTE | 2020-06-17 22:26 | DI.RAD.S_ITS ---
PROCEDURE: XR RIBS RT MIN 3V W CXR 1V INDICATIONS: posterior rib pain after fall TECHNIQUE: 2 views of the right ribs were acquired, along with a single view chest. COMPARISON: [facility], , XR CHEST 1V, 11/10/2018, 16:48. FINDINGS: Surgical changes and devices: None. Bones and chest wall: No fractures or dislocations. No suspicious bony lesions. Overlying soft tissues appear unremarkable. Lungs and pleura: No pleural effusions or pneumothorax. Lungs appear clear. Mild asymmetric elevation of the right hemidiaphragm Mediastinum: Mediastinal contours appear normal. Heart size is normal. IMPRESSION: No trauma found. Dictated by: Rob Leigh M.D. on 06/18/2020 at 8:24 Approved by: Rob Leigh M.D. on 06/18/2020 at 8:26
[2020-06-17 22:28] VITALS: PULSE 85; RESP 14; O2SAT 98
[2020-06-17 22:30] VITALS: PULSE 87; RESP 21; O2SAT 95
--- NOTE | 2020-06-17 22:32 | ED.FALL ---
HPI - Fall General Chief Complaint: Fall Stated Complaint: ETOH/ GLF/ Back pain Time Seen by Provider: 06/17/20 22:15 Source: patient and EMS Mode of arrival: EMS Limitations: no limitations History of Present Illness HPI Narrative: 65-year-old male who known alcoholic brought in by EMS for evaluation of injuries that he sustained when he was drinking this evening and fell. He states he does not necessarily remember falling. He remembers waking up on the ground. Having pain to the right side of his spine. He was able to crawl on the floor over to the phone and call EMS. He arrived in a cervical collar but not on a backboard. Pressure reports no other pain except for the right side of his back. Related Data Home Medications Medication Instructions Recorded Confirmed tamsulosin 0.4 mg capsule 0.8 mg PO DAILY #0 cap 06/23/19 03/28/20 testosterone cypionate 200 mg/mL 200 mg IM Q3W ml 06/23/19 03/28/20 intramuscular oil ascorbic acid (vitamin C) 500 mg 4,000 mg PO DAILY cap 10/11/19 03/28/20 capsule aspirin 81 mg tablet,delayed 81 mg PO DAILY 10/11/19 03/28/20 release calcium gluconate PO DAILY 10/11/19 03/28/20 cholecalciferol (vitamin D3) 25 4,000 unit PO DAILY cap 10/11/19 03/28/20 mcg (1,000 unit) capsule coenzyme Q10 75 mg capsule 75 mg PO DAILY 10/11/19 03/28/20 lactobacillus combination no.8 3 3,000 mmu cells PO DAILY 10/11/19 03/28/20 billion cell capsule magnesium PO 10/11/19 03/28/20 mecobalamin (vitamin B12) 500 mg PO DAILY 10/11/19 03/28/20 melatonin 100 PO BEDTIME PRN 10/11/19 03/28/20 methocarbamol 750 mg tablet 750 mg PO DAILY tab 10/11/19 03/28/20 multivitamin 1 tab PO QAM 10/11/19 03/28/20 omeprazole 20 mg capsule,delayed 20 mg PO DAILY 10/11/19 03/28/20 release vitamin B complex 1 tab PO DAILY 10/11/19 03/28/20 Previous Rx's Medication Instructions Recorded ferrous sulfate 325 mg PO DAILY #90 tab 01/24/20 duloxetine 60 mg capsule,delayed 60 mg PO DAILY #30 cap 03/28/20 release gabapentin 600 mg tablet 600 mg PO TID #90 tab 03/28/20 naltrexone 50 mg tablet 50 mg PO DAILY #30 tab 03/28/20 trazodone 100 mg tablet 100 mg PO BEDTIME #30 tab 03/28/20 cephalexin [Keflex] 500 mg PO QID #28 cap 05/21/20 chlordiazepoxide HCl 25 mg PO Q8H PRN #8 cap 05/26/20 Allergies Allergy/AdvReac Type Severity Reaction Status Date / Time hydrochlorothiazide Allergy Severe Anaphylaxis Verified 05/26/20 10:28 [HYDROCHLOROTHIAZIDE] lisinopril [LISINOPRIL] Allergy Severe Anaphylaxis Verified 05/26/20 10:28 Review of Systems Constitutional Constitutional: Denies fever(s) and Denies headache(s) ENT Ears, Nose, Mouth, and Throat: Denies headache(s) and Denies neck pain Cardiovascular Cardiovascular: Denies chest pain and Denies dyspnea Respiratory Respiratory: Denies dyspnea Gastrointestinal Gastrointestinal: Denies abdominal pain, Denies nausea and Denies vomiting Musculoskeletal Musculoskeletal: Denies arthralgias, Reports back pain, Denies myalgias and Denies neck pain Integumentary/Breasts Skin/Breast: Denies rash Neurologic Neurologic: Denies behavioral changes and Denies headache(s) Psychiatric Psychiatric: Denies behavioral changes Hematologic/Lymphatic Hematologic/Lymphatic: Denies easy bleeding and Denies easy bruising Allergic/Immunologic Allergic/Immunologic: Denies urticaria Patient History Medical History Alcohol use disorder, severe, in early remission Alcoholism Cirrhosis Hypertension Major depression Surgical History History of fasciotomy 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 ) substance use type: does not use Smoking Status: Former smoker alcohol intake frequency: 3 or more drinks per day Alcohol type: hard liquor Substance Use Type: does not use Exam Initial Vital Signs Initial Vital Signs: Vital Signs Temperature 98.7 F 06/17/20 22:18 Pulse Rate 93 H 06/17/20 22:18 Respiratory Rate 14 06/17/20 22:18 Blood Pressure 159/79 H 06/17/20 22:18 Pulse Oximetry 98 06/17/20 22:18 Const General: cooperative and comfortable HENMT Head: normal to inspection, normocephalic and atraumatic Chest Chest: No crepitus and No tenderness Resp Effort & Inspection: normal respiratory effort Auscultation: clear to auscultation bilaterally Cardio Rate: regular rate Rhythm: regular rhythm GI Inspection: non-distended Palpation: soft Back/Spine/Pelvis Cervical Spine: collar present Thoracic/Lumbar Spine: paraspinal tenderness (Right-sided thoracic paraspinal tenderness), No thoracic spinal tenderness and No lumbar spinal tenderness Skin Rashes: no rashes Neuro General: patient alert, patient awake and patient oriented x3 Cognition: normal cognition Speech: speech normal Extrem General: capillary refill normal Psych Appearance: well kempt Procedures FAST Exam FAST Exam 1: Fluid in Morison's pouch: No Fluid in [place]: No Fluid around bladder, Transverse view: No Fluid around bladder, Sagittal view: No Fluid in Pericardial Sac: No Gross Wall Motion Abnormality: No Study normal for this patient: Yes Images saved for further review: No Scores GCS Chi coma scale eye opening: Spontaneous [place] coma scale verbal response: Orientated Chi coma scale motor response: Obey commands [place] coma scale total score: 15 Nexus Score for C-Spine Focal Neurologic deficit present: No Midline spinal tenderness present: No Altered level of conciousness present: No Intoxication present: Yes Distracting Injury Present: No Nexus Criteria for C-spine: 1 Course Orders Ordered: ED Orders 06/17/20 22:21 CT cervical spine wo con Stat CT head/brain wo con Stat EKG-12 Lead Stat 06/17/20 22:26 XR ribs RT min 3V w CXR1V Stat 06/17/20 22:27 Complete Blood Count AUTO DIFF Stat Comprehensive Metabolic Panel Stat Ethanol (ETOH) Stat Lipase Stat Discontinued Medications Acetaminophen (Acetaminophen 325 Mg Tablet) 650 mg PO NOW ONE Stop: 06/18/20 00:44 Last Admin: 06/18/20 00:45 Dose: 650 mg Documented by: MAYURI Thiamine HCl 200 mg/ Sodium (Chloride) 52 mls @ 208 mls/hr IV NOW ONE Stop: 06/17/20 22:22 Last Infusion: 06/17/20 23:50 Dose: 0 mls/hr Documented by: Admin: 06/17/20 23:27 Dose: 208 mls/hr Documented by: MAYURI Multivitamins (Multivitamin 1 Tablet) 1 tab PO DAILY ONE Stop: 06/17/20 22:23 Last Admin: 06/18/20 00:31 Dose: 1 tab Documented by: MAYURI Vital Signs Vital signs: Vital Signs - 8 hr 06/17/20 22:18 06/17/20 22:28 06/17/20 22:30 Temperature 98.7 F Pulse Rate 93 H 85 87 Respiratory Rate 14 14 21 Blood Pressure 159/79 H Pulse Oximetry 98 98 95 06/17/20 23:17 06/17/20 23:30 06/18/20 00:00 Temperature Pulse Rate 83 84 88 Respiratory Rate 17 16 Blood Pressure Pulse Oximetry 94 96 93 06/18/20 00:30 Temperature Pulse Rate 97 H Respiratory Rate 18 Blood Pressure Pulse Oximetry 96 MDM - Fall Medical Records Attestation: I reviewed the patient's medical records. Lab Data Attestation: I reviewed the patient's lab results. Result diagrams: 06/17/20 22:27 06/17/20 22:27 Labs: Lab Results 06/17/20 06/17/20 06/17/20 Range/Units 22:27 22:27 22:27 WBC 3.4 L (4.5-11.0) X10^3/uL RBC 4.46 L (4.5-5.9) X10^6/uL Hgb 13.4 L (13.5-17.5) g/dL Hct 41.0 (41-53) % MCV 91.8 (80-100) fL MCH 30.1 (26-34) PG MCHC 32.8 (30-36) % RDW 20.3 H (11.6-14.8) % Plt Count 209 (150-400) X10^3/uL Neut % (Auto) 48.8 L (50-75) % Lymph % (Auto) 42.0 H (25-40) % [place] % (Auto) 7.6 (3-14) % Eos % (Auto) 0.1 L (2-4) % Baso % (Auto) 1.5 (0-2) % Neut # (Auto) 1700 (9793-7129) /uL Lymph # (Auto) 1400 (7341-4339) /uL [place] # (Auto) 300 (0-900) /uL Eos # (Auto) 0 (0-450) /uL Baso # (Auto) 100 (0-100) /uL RBC Morphology See below Anisocytosis 3+ H Sodium 141 (137-145) mmol/L Potassium 4.1 (3.4-5.1) mmol/L Chloride 104 (98-107) mmol/L Carbon Dioxide 28 (22-32) mmol/L BUN 11 (9-20) mg/dL Creatinine 0.65 L (0.66-1.25) mg/dL Estimated GFR > 60.0 (>60) mL/min BUN/Creatinine Ratio 16.9 (6-22) Glucose 103 (80-110) mg/dL Calcium 8.6 (8.4-10.2) mg/dL Total Bilirubin 0.7 (0.2-1.3) mg/dL AST 40 (17-59) IU/L ALT 14 (<50) IU/L Alkaline Phosphatase 87 (38-126) U/L Total Protein 7.6 (6.3-8.2) g/dL Albumin 3.5 (3.5-5.0) g/dL Globulin 4.1 (1.7-4.1) g/dL Albumin/Globulin Ratio 0.9 L (1.0-2.8) Lipase 46 (23-300) U/L Ethyl Alcohol 254 H ( - 10) mg/dL Imaging Data Rib x-ray: Radiologist's Impression: No acute findings CT scan - head: Radiologist's Impression: No acute intracranial findings CT - cervical spine: Radiologist's Impression: No acute findings ECG Data Attestation: I personally reviewed and interpreted this ECG as follows: Prior ECG tracings: not available for review Interpretation: Sinus rhythm Normal axis Ventricular rate [address] T wave changes MDM Narrative Medical decision making narrative: Patient is alert and oriented. He does admit to drinking alcohol on does have an elevated alcohol level. Arrived in a cervical collar which was remained in place until the CT scan was unremarkable. He is afebrile. Rib x-ray shows no displaced rib fracture. Fast exam was negative. Feel we can hold on further workup for now. Patient states that he already has plans to obtain a long-term rehab when they start accepting new patients later this week. Will discharge home. Discharge Plan Departure Patient Disposition: Home Clinical Impression: Alcohol intoxication, Fall Instructions: Alcohol Use Disorder Activity Restrictions/Additional Instructions: No driving for the next 24 hours or the future if you drink alcohol. I do recommend that you follow through with plan of attending long-term alcohol rehabilitation. Contact your primary provider for follow-up. Return to the emergency department for any new or worsening symptoms Prescriptions: No Action multivitamin [Daily Multi-Vitamin] Tablet 1 tab PO QAM RF: 0 vitamin B complex Tablet 1 tab PO DAILY RF: 0 mecobalamin (vitamin B12) 500 mg PO DAILY RF: 0 calcium gluconate PO DAILY RF: 0 Adult Probiotic 3 billion cell capsule 3,000 mmu cells PO DAILY RF: 0 aspirin [Adult Low Dose Aspirin] 81 mg tablet,delayed release (DR/EC) 81 mg PO DAILY RF: 0 cholecalciferol (vitamin D3) 25 mcg (1,000 unit) capsule 4,000 unit PO DAILY RF: 0 Ultra CoQ10 75 mg capsule 75 mg PO DAILY RF: 0 magnesium PO RF: 0 ascorbic acid (vitamin C) 500 mg capsule 4,000 mg PO DAILY RF: 0 methocarbamol 750 mg tablet 750 mg PO DAILY RF: 0 omeprazole 20 mg capsule,delayed release(DR/EC) 20 mg PO DAILY RF: 0 melatonin 100 PO BEDTIME PRN (Reason: Sleep) RF: 0 duloxetine 60 mg capsule,delayed release(DR/EC) 60 mg PO DAILY Qty: 30 RF: 5 gabapentin 600 mg tablet 600 mg PO TID Qty: 90 RF: 3 naltrexone 50 mg tablet 50 mg PO DAILY Qty: 30 RF: 3 trazodone 100 mg tablet 100 mg PO BEDTIME Qty: 30 RF: 5 tamsulosin [Flomax] 0.4 mg capsule 0.8 mg PO DAILY Qty: 0 RF: 0 ferrous sulfate 325 mg (65 mg iron) Tablet 325 mg PO DAILY Qty: 90 RF: 0 cephalexin [Keflex] 500 mg capsule 500 mg PO QID Qty: 28 RF: 0 testosterone cypionate 200 mg/mL oil 200 mg IM Q3W RF: 0 chlordiazepoxide HCl 25 mg capsule 25 mg PO Q8H PRN (Reason: alcohol withdrawal) Qty: 8 RF: 0 Referrals: Maria Teresa Talley PA-C [Primary Care Provider] -
[2020-06-17 23:06] LABS: Basophils Absolute Auto 100 /uL (0-100); Basophils Percent Auto 1.5 % (0-2); Eosinophils Absolute Auto 0 /uL (0-450); Eosinophils Percent Auto 0.1 % (2-4); Hemoglobin 13.4 g/dL (13.5-17.5); Lymphocytes Absolute Auto 1400 /uL (1100-4500); Mean Corpuscular HGB Conc 32.8 % (30-36); Mean Corpuscular Hemoglobin 30.1 PG (26-34); Mean Corpuscular Volume 91.8 fL (80-100); Monocytes Absolute Auto 300 /uL (0-900); Monocytes Percent Auto 7.6 % (3-14); Neutrophils Absolute Auto 1700 /uL (1500-7000); Neutrophils Percent Auto 48.8 % (50-75); Platelet Count 209 X10^3/uL (150-400); Red Blood Cell Count 4.46 X10^6/uL (4.5-5.9); Red Cell Distribution Width 20.3 % (11.6-14.8); White Blood Cell Count 3.4 X10^3/uL (4.5-11.0)
[2020-06-17 23:07] LABS: Add Manual Diff / Slide Review SLIDE REVIEW; Alanine Aminotransferase 14 IU/L (<50); Albumin 3.5 g/dL (3.5-5.0); Albumin Globulin Ratio 0.9 (1.0-2.8); Alkaline Phosphatase 87 U/L (38-126); Aspartate Aminotransferase 40 IU/L (17-59); BUN Creatinine Ratio 16.9 (6-22); Bilirubin Total 0.7 mg/dL (0.2-1.3); Blood Urea Nitrogen 11 mg/dL (9-20); Calcium 8.6 mg/dL (8.4-10.2); Carbon Dioxide 28 mmol/L (22-32); Chloride 104 mmol/L (98-107); Estimated Glomerular Filt Rate > 60.0 mL/min (>60); Globulin 4.1 g/dL (1.7-4.1); Glucose 103 mg/dL (80-110); HEMOLYSIS 37 (0-50); Potassium 4.1 mmol/L (3.4-5.1); Sodium 141 mmol/L (137-145); Total Protein 7.6 g/dL (6.3-8.2)
[2020-06-17 23:10] LABS: Lipase 46 U/L (23-300)
[2020-06-17 23:11] LABS: Ethanol (ETOH) 254 mg/dL
[2020-06-17 23:17] VITALS: PULSE 83; O2SAT 94
[2020-06-17] MEDS: THIAMINE 200 MG in SODIUM CHLORIDE 0.9% 50 ML 208 ML IV (23:27)
[2020-06-17 23:30] VITALS: PULSE 84; RESP 17; O2SAT 96
[2020-06-17 23:45] LABS: Anisocytosis 3+
[2020-06-18] VITALS: PULSE 88; RESP 16; O2SAT 93
--- NOTE | 2020-06-18 00:08 | PC.NURSE ---
C-Spine cleared by Dr Recinos and c-collar removed.
[2020-06-18 00:30] VITALS: PULSE 97; RESP 18; O2SAT 96
[2020-06-18] MEDS: MULTIVITAMIN 1 TABLET 1 TAB PO (00:31)
[2020-06-18] MEDS: ACETAMINOPHEN 325 MG TABLET 650 MG PO (00:45)
[2020-06-18] MEDS: methocarbamoL 500 MG TABLET 750 MG PO (01:49)
[2020-06-18 06:20] VITALS: BP 141/88; PULSE 86; RESP 14; TEMP 36.6; O2SAT 94
== END 2020-06-18 06:20 | disposition home or self-care (01) ==
PROVIDERS: Emergency Provider Emergency Medicine; PCP Student in an Organized Health Care Education/Training Program
DX: F10.129 Alcohol abuse with intoxication, unspecified (principal); Y90.8 Blood alcohol level of 240 mg/100 ml or more; R07.81 Pleurodynia; S09.90XA Unspecified injury of head, initial encounter; W19.XXXA Unspecified fall, initial encounter; I10 Essential (primary) hypertension
CPT/HCPCS: 36415; 70450; 71101; 72125; 80053; 80320; 83690; 85025; 99284

== ENCOUNTER 2020-06-24 08:57 | Emergency (ER) | payer MEDICARE, OTHER, SELFPAY ==
[2020-06-24] VITALS (18 sets, daily range): BP systolic 120–149; BP diastolic 68–99; PULSE 80–144; RESP 15–26; TEMP 36.9; O2SAT 95–96; BMI 36.5
[2020-06-24] MEDS: SODIUM CHLORIDE 0.9% 1,000 ML 1000 ML IV ×2 (10:10→13:20)
[2020-06-24 10:19] LABS: Acetaminophen < 10 ug/mL (10-30); Alanine Aminotransferase 46 IU/L (<50); Alkaline Phosphatase 152 U/L (38-126); Aspartate Aminotransferase 134 IU/L (17-59); Bilirubin Total 1.8 mg/dL (0.2-1.3); Blood Urea Nitrogen 14 mg/dL (9-20); Calcium 8.9 mg/dL (8.4-10.2); Carbon Dioxide 23 mmol/L (22-32); Chloride 103 mmol/L (98-107); Estimated Glomerular Filt Rate > 60.0 mL/min (>60); Ethanol (ETOH) 278 mg/dL; Globulin 4.1 g/dL (1.7-4.1); Glucose 88 mg/dL (80-110); HEMOLYSIS < 15 (0-50); Potassium 3.5 mmol/L (3.4-5.1); Salicylate < 1.0 mg/dL (<20); Sodium 142 mmol/L (137-145); Total Protein 8.1 g/dL (6.3-8.2)
[2020-06-24 10:20] LABS: Add Manual Diff / Slide Review YES; Hematocrit 45.6 % (41-53); Hemoglobin 15.2 g/dL (13.5-17.5); Mean Corpuscular HGB Conc 33.2 % (30-36); Mean Corpuscular Hemoglobin 30.5 PG (26-34); Mean Corpuscular Volume 91.8 fL (80-100); Platelet Count 60 X10^3/uL (150-400); Red Blood Cell Count 4.97 X10^6/uL (4.5-5.9); Red Cell Distribution Width 19.9 % (11.6-14.8); White Blood Cell Count 3.1 X10^3/uL (4.5-11.0)
[2020-06-24 10:32] LABS: Neutrophils Absolute Manual 1054 /uL (3000-5900); Total Cells Counted 100
[2020-06-24 10:33] LABS: Anisocytosis 2+
[2020-06-24 10:34] LABS: Lithium < 0.2 mmol/L (0.6-1.2)
--- NOTE | 2020-06-24 10:46 | ED_ITS ---
HPI - Medical Clearance <Paola Merchant CHARGE LOADER-BC - Last Filed: 06/24/20 16:35> General Chief complaint: Medical Clearance Stated complaint: Etoh detox Time Seen by Provider: 06/24/20 10:05 Source: patient and EMS Mode of arrival: EMS Limitations: no limitations History of Present Illness HPI Narrative: The patient is a 65-year-old male for an smoker with history of alcoholism and major depression who presents with a chief complaint of wanting clearance for either inpatient or outpatient detox. He states that he has been working to get himself into a 30 60 or 90 day program for alcoholism through 1 of his friends. He is requesting coronavirus testing to ensure that this happens. He denies any thoughts of hurting himself or anybody else. He states he drinks 750 mL of vodka per day. He states he has been a long-term alcoholic, is actually well known to this department. He denies any thoughts of hurting himself or anybody else. He states that his last drink might of been 4 or 6 or 8 hours ago. He states he would prefer outpatient detox, but he requests that he does not like Librium. He denies any history of detox related seizures. He denies any thoughts of hurting himself or anybody else, but states that he is ?just a very chronic alcoholic. The patient notes that he has not had anything to eat or drink other than alcohol and occasional grape juice for the past week. Related Information Home Medications Medication Instructions Recorded Confirmed tamsulosin 0.4 mg capsule 0.8 mg PO DAILY #0 cap 06/23/19 03/28/20 testosterone cypionate 200 mg/mL 200 mg IM Q3W ml 06/23/19 03/28/20 intramuscular oil ascorbic acid (vitamin C) 500 mg 4,000 mg PO DAILY cap 10/11/19 03/28/20 capsule aspirin 81 mg tablet,delayed 81 mg PO DAILY 10/11/19 03/28/20 release calcium gluconate PO DAILY 10/11/19 03/28/20 cholecalciferol (vitamin D3) 25 4,000 unit PO DAILY cap 10/11/19 03/28/20 mcg (1,000 unit) capsule coenzyme Q10 75 mg capsule 75 mg PO DAILY 10/11/19 03/28/20 lactobacillus combination no.8 3 3,000 mmu cells PO DAILY 10/11/19 03/28/20 billion cell capsule magnesium PO 10/11/19 03/28/20 mecobalamin (vitamin B12) 500 mg PO DAILY 10/11/19 03/28/20 melatonin 100 PO BEDTIME PRN 10/11/19 03/28/20 methocarbamol 750 mg tablet 750 mg PO DAILY tab 10/11/19 03/28/20 multivitamin 1 tab PO QAM 10/11/19 03/28/20 omeprazole 20 mg capsule,delayed 20 mg PO DAILY 10/11/19 03/28/20 release vitamin B complex 1 tab PO DAILY 10/11/19 03/28/20 Previous Rx's Medication Instructions Recorded ferrous sulfate 325 mg PO DAILY #90 tab 01/24/20 duloxetine 60 mg capsule,delayed 60 mg PO DAILY #30 cap 03/28/20 release gabapentin 600 mg tablet 600 mg PO TID #90 tab 03/28/20 naltrexone 50 mg tablet 50 mg PO DAILY #30 tab 03/28/20 trazodone 100 mg tablet 100 mg PO BEDTIME #30 tab 03/28/20 cephalexin [Keflex] 500 mg PO QID #28 cap 05/21/20 chlordiazepoxide HCl 25 mg PO Q8H PRN #8 cap 05/26/20 chlordiazepoxide HCl 25 mg PO Q8H PRN #3 cap 06/24/20 chlordiazepoxide HCl 25 mg PO Q8H PRN #7 cap 06/24/20 metoprolol tartrate 12.5 mg PO BID #20 tab 06/24/20 Allergies Allergy/AdvReac Type Severity Reaction Status Date / Time hydrochlorothiazide Allergy Severe Anaphylaxis Verified 06/24/20 09:08 [HYDROCHLOROTHIAZIDE] lisinopril [LISINOPRIL] Allergy Severe Anaphylaxis Verified 06/24/20 09:08 Review of Systems <Paola Merchant, DIONICIO-BC - Last Filed: 06/24/20 16:35> Review of Systems Narrative: GENERAL: Denies chills, fatigue, malaise, fever, sweats. HEENT: Denies sinus pain, ear pain, sore throat, difficulty swallowing, dizziness. RESPIRATORY: Denies dyspnea, cough, wheezing, hemoptysis, sputum. CARDIOVASCULAR: Denies chest pain, palpitations, orthopnea, edema, GASTROINTESTINAL: Denies nausea, vomiting, abdominal pain, diarrhea, constipati on, melena. : Denies dysuria, frequency, incontinence, hematuria, urinary retention. MUSCULOSKELETAL: denies weakness, joint pain, or bony pain SKIN: Denies rash, skin lesions, or other NEUROLOGIC: Denies weakness, headache, numbness, change in speech, confusion, seizures, incoordination. 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 ) substance use type: does not use Smoking Status: Former smoker alcohol intake frequency: 3 or more drinks per day Alcohol type: hard liquor Substance Use Type: does not use Exam <PRAFUL Melendrez - Last Filed: 06/24/20 16:35> Narrative Exam Narrative: GENERAL: T on come to male lying on stretcher in no acute distress HEAD: Atraumatic. Normocephalic. No temporal or scalp tenderness. EYES: Pupils equal round and reactive. Extraocular motions intact. No scleral icterus. No injection or drainage. ENT: Nose without bleeding, purulent drainage or septal hematoma. Throat without erythema, tonsillar hypertrophy or exudate. Uvula midline. Airway patent. Dry mucous membranes noted. NECK: Trachea midline. No JVD or lymphadenopathy. Supple, nontender, no meningeal signs. CARDIOVASCULAR: Regular rate and tachycardic rhythm RESPIRATORY: Clear to auscultation. Breath sounds equal bilaterally. No wheezes, rales, or rhonchi. No cough. No increased respiratory effort. No accessory muscle use. GASTROINTESTINAL: Abdomen soft, non-tender, nondistended. No hepato- splenomegaly, or palpable masses. No guarding. Active bowel sounds all 4 quadrants EXTREMITIES: No clubbing, cyanosis, or edema. No joint tenderness, effusion, or edema noted. BACK: Nontender without deformity or crepitance. No flank tenderness. NEURO: AOx3. Clear speech. Using all extremities equally. Teary at times. Initial Vital Signs Initial Vital Signs: Vital Signs Pulse Rate 127 H 06/24/20 09:05 Pulse Oximetry 95 06/24/20 09:05 <Paola Ramos DO - Last Filed: 06/24/20 19:31> Initial Vital Signs Initial Vital Signs: Vital Signs Pulse Rate 127 H 06/24/20 09:05 Pulse Oximetry 95 06/24/20 09:05 Scores <MIKHAIL Melendrez - Last Filed: 06/24/20 16:35> GCS [place] coma scale eye opening: Spontaneous [place] coma scale verbal response: Orientated Chi coma scale motor response: Obey commands Chi coma scale total score: 15 MDM - Medical Clearance <MIKHAIL Melendrez - Last Filed: 06/24/20 16:35> Lab Data Attestation: I reviewed the patient's lab results. Result diagrams: 06/24/20 10:00 06/24/20 10:00 Labs: Lab Results 06/24/20 06/24/20 06/24/20 Range/Units 10:00 10:00 10:00 WBC Cancelled 3.1 L RBC Cancelled 4.97 Hgb Cancelled 15.2 Hct Cancelled 45.6 MCV Cancelled 91.8 MCH Cancelled 30.5 MCHC Cancelled 33.2 RDW Cancelled 19.9 H Plt Count Cancelled 60 L Neut % (Auto) Cancelled Not Reportable Lymph % (Auto) Cancelled Not Reportable Castro % (Auto) Cancelled Not Reportable Eos % (Auto) Cancelled Not Reportable Baso % (Auto) Cancelled Not Reportable Neut # (Auto) Cancelled Lymph # (Auto) Cancelled Not Reportable Castro # (Auto) Cancelled Not Reportable Eos # (Auto) Cancelled Baso # (Auto) Cancelled Not Reportable Total Counted 100 Seg Neutrophils % 32.0 L (38-70) % Band Neutrophils % 2.0 L (3-7) % Lymphocytes % (Manual) 44.0 (25-45) % Atypical Lymphs % 18.0 H ( - 0) % Monocytes % (Manual) 4.0 (2-11) % Neutrophils # (Manual) 1054 L (8008-4537) /uL RBC Morphology Not Reportable Anisocytosis 2+ H Sodium Cancelled Potassium Cancelled Chloride Cancelled Carbon Dioxide Cancelled BUN Cancelled Creatinine Cancelled Estimated GFR Cancelled BUN/Creatinine Ratio Cancelled Glucose Cancelled Calcium Cancelled Total Bilirubin Cancelled AST Cancelled ALT Cancelled Alkaline Phosphatase Cancelled Total Creatine Kinase (55-170) U/L CK-MB (CK-2) CK-MB (CK-2) Rel Index Troponin I (0.01-0.034) ng/mL Total Protein Cancelled Albumin Cancelled Globulin Cancelled Albumin/Globulin Ratio Cancelled TSH (0.47-4.68) uIU/mL Urine RBC (0-5/HPF) Urine WBC (0-5/HPF) Ur Squamous Epith Cells (0-5/HPF) Urine Bacteria (None) Ur Culture Indicated? Salicylates (<20) mg/dL U Opiates 300ng/mL cut (Negative) Ur Oxycodone Screen (Negative) Urine Methadone Screen (Negative) Acetaminophen (10-30) ug/mL Ur Barbiturates Screen (Negative) U Tricyclic Antidepress (Negative) Ur Phencyclidine Scrn (Negative) Ur Amphetamines Screen (Negative) U Methamphetamines Scrn (Negative) Ur MDMA Scrn (Ecstasy) (Negative) U Benzodiazepines Scrn (Negative) [place] (0.6-1.2) mmol/L Urine Cocaine Screen (Negative) U Marijuana (THC) Screen (Negative) Ethyl Alcohol ( - 10) mg/dL SARS-CoV-2 (PCR) (Negative) 06/24/20 06/24/20 06/24/20 Range/Units 10:00 10:00 11:00 WBC RBC Hgb Hct MCV MCH MCHC RDW Plt Count Neut % (Auto) Lymph % (Auto) [place] % (Auto) Eos % (Auto) Baso % (Auto) Neut # (Auto) Lymph # (Auto) [place] # (Auto) Eos # (Auto) Baso # (Auto) Total Counted Seg Neutrophils % (38-70) % Band Neutrophils % (3-7) % Lymphocytes % (Manual) (25-45) % Atypical Lymphs % ( - 0) % Monocytes % (Manual) (2-11) % Neutrophils # (Manual) (4930-3257) /uL RBC Morphology Anisocytosis Sodium 142 Potassium 3.5 Chloride 103 Carbon Dioxide 23 BUN 14 Creatinine 0.56 L Estimated GFR > 60.0 BUN/Creatinine Ratio 25.0 H Glucose 88 Calcium 8.9 Total Bilirubin 1.8 H AST 134 H ALT 46 Alkaline Phosphatase 152 H D Total Creatine Kinase (55-170) U/L CK-MB (CK-2) CK-MB (CK-2) Rel Index Troponin I (0.01-0.034) ng/mL Total Protein 8.1 Albumin 4.0 Globulin 4.1 Albumin/Globulin Ratio 1.0 TSH 1.41 (0.47-4.68) uIU/mL Urine RBC (0-5/HPF) Urine WBC (0-5/HPF) Ur Squamous Epith Cells (0-5/HPF) Urine Bacteria (None) Ur Culture Indicated? Salicylates < 1.0 (<20) mg/dL U Opiates 300ng/mL cut (Negative) Ur Oxycodone Screen (Negative) Urine Methadone Screen (Negative) Acetaminophen < 10 L (10-30) ug/mL Ur Barbiturates Screen (Negative) U Tricyclic Antidepress (Negative) Ur Phencyclidine Scrn (Negative) Ur Amphetamines Screen (Negative) U Methamphetamines Scrn (Negative) Ur MDMA Scrn (Ecstasy) (Negative) U Benzodiazepines Scrn (Negative) [place] < 0.2 L (0.6-1.2) mmol/L Urine Cocaine Screen (Negative) U Marijuana (THC) Screen (Negative) Ethyl Alcohol 278 H ( - 10) mg/dL SARS-CoV-2 (PCR) Negative (Negative) 06/24/20 06/24/20 06/24/20 Range/Units 12:56 12:56 15:24 WBC RBC Hgb Hct MCV MCH MCHC RDW Plt Count Neut % (Auto) Lymph % (Auto) [place] % (Auto) Eos % (Auto) Baso % (Auto) Neut # (Auto) Lymph # (Auto) [place] # (Auto) Eos # (Auto) Baso # (Auto) Total Counted Seg Neutrophils % (38-70) % Band Neutrophils % (3-7) % Lymphocytes % (Manual) (25-45) % Atypical Lymphs % ( - 0) % Monocytes % (Manual) (2-11) % Neutrophils # (Manual) (7095-3324) /uL RBC Morphology Anisocytosis Sodium Potassium Chloride Carbon Dioxide BUN Creatinine Estimated GFR BUN/Creatinine Ratio Glucose Calcium Total Bilirubin AST ALT Alkaline Phosphatase Total Creatine Kinase 90 (55-170) U/L CK-MB (CK-2) TNP CK-MB (CK-2) Rel Index TNP Troponin I 0.032 (0.01-0.034) ng/mL Total Protein Albumin Globulin Albumin/Globulin Ratio TSH (0.47-4.68) uIU/mL Urine RBC 1-5/hpf (0-5/HPF) Urine WBC 0-1/hpf (0-5/HPF) Ur Squamous Epith Cells 0-1 /hpf (0-5/HPF) Urine Bacteria None seen (None) Ur Culture Indicated? Cult not indicated Salicylates (<20) mg/dL U Opiates 300ng/mL cut Negative (Negative) Ur Oxycodone Screen Negative (Negative) Urine Methadone Screen Negative (Negative) Acetaminophen (10-30) ug/mL Ur Barbiturates Screen Negative (Negative) U Tricyclic Antidepress Negative (Negative) Ur Phencyclidine Scrn Negative (Negative) Ur Amphetamines Screen Negative (Negative) U Methamphetamines Scrn Negative (Negative) Ur MDMA Scrn (Ecstasy) Negative (Negative) U Benzodiazepines Scrn Negative (Negative) [place] (0.6-1.2) mmol/L Urine Cocaine Screen Negative (Negative) U Marijuana (THC) Screen Negative (Negative) Ethyl Alcohol ( - 10) mg/dL SARS-CoV-2 (PCR) (Negative) Urine Dip Bedside Urine Glucose Negative Bedside Urine Bilirubin - Negative Bedside Urine Ketone +++ 80 Urine Specific [place] 1.025 Bedside Urine Occult Blood + Bedside Urine pH 6.0 Bedside Urine Protein ++ 100 Bedside Urine Urobilinogen - Negative Bedside Urine Nitrite - Negative Bedside Urine Leukocytes - Negative Esterase MDM Narrative Medical decision making narrative: The patient is a 65-year-old male who presen ts with a chief complaint of wanting clearance and help with detox. He later decides that he wants to go home for detox and refuses inpatient detox. He does not even want me to call [facility] to evaluate for beds. Basic clearance labs were performed. Initial CIWA was 0. Cover on a virus test was negative. The patient presents dehydrated given that he had not had anything to drink but alcohol for the past week. He was given 2 L of IV fluid and 2 doses of Ativan in the emergency department. However the patient was noted to be in an out of an atrial fibrillation throughout his emergency department stay, with heart rates up to the 150s. However he remained normotensive without symptoms. The patient was given 5 mg IV Lopressor and reduced his heart rate to the 80s. Unfortunate this patient is not a candidate for anticoagulation given his multiple falls which have resulted in multiple emergency department visits. I fear that this would lead to atraumatic head bleed etcetera. I did discuss with the patient that atrial fibrillation can lead to NH stroke etcetera, but he states he understands that he is not a candidate for anticoagulation at this point. The patient states that he does have history of a tachycardia, though he does not know if it is an irregular heartbeat or not. A despite his AFib with RVR in the emergency department, his troponin is negative. Discussed case with Dr Ramos and elected to prescribe 12.5 of metoprolol p.o. b.i.d.. I will give him a small prescription of Librium. The patient declines a prescription of Zofran at this point time. Patient would like to go home rather than inpatient detox. Prescriptions were sent to [facility]. I encouraged him to follow up with primary care provider in the next few days. Encouraged him to continue his desire to quit drinking. Discussed a references etcetera. Patient appears to have motivation etcetera at this point time. Patient has no questions or concerns upon discharge and states understanding return precautions as well as follow-up care. <Paola Ramos, DO - Last Filed: 06/24/20 19:31> Lab Data Labs: Lab Results 06/24/20 06/24/20 06/24/20 Range/Units 10:00 10:00 10:00 WBC Cancelled 3.1 L RBC Cancelled 4.97 Hgb Cancelled 15.2 Hct Cancelled 45.6 MCV Cancelled 91.8 MCH Cancelled 30.5 MCHC Cancelled 33.2 RDW Cancelled 19.9 H Plt Count Cancelled 60 L Neut % (Auto) Cancelled Not Reportable Lymph % (Auto) Cancelled Not Reportable Castro % (Auto) Cancelled Not Reportable Eos % (Auto) Cancelled Not Reportable Baso % (Auto) Cancelled Not Reportable Neut # (Auto) Cancelled Lymph # (Auto) Cancelled Not Reportable [place] # (Auto) Cancelled Not Reportable Eos # (Auto) Cancelled Baso # (Auto) Cancelled Not Reportable Total Counted 100 Seg Neutrophils % 32.0 L (38-70) % Band Neutrophils % 2.0 L (3-7) % Lymphocytes % (Manual) 44.0 (25-45) % Atypical Lymphs % 18.0 H ( - 0) % Monocytes % (Manual) 4.0 (2-11) % Neutrophils # (Manual) 1054 L (1464-2716) /uL RBC Morphology Not Reportable Anisocytosis 2+ H Sodium Cancelled Potassium Cancelled Chloride Cancelled Carbon Dioxide Cancelled BUN Cancelled Creatinine Cancelled Estimated GFR Cancelled BUN/Creatinine Ratio Cancelled Glucose Cancelled Calcium Cancelled Total Bilirubin Cancelled AST Cancelled ALT Cancelled Alkaline Phosphatase Cancelled Total Creatine Kinase (55-170) U/L CK-MB (CK-2) CK-MB (CK-2) Rel Index Troponin I (0.01-0.034) ng/mL Total Protein Cancelled Albumin Cancelled Globulin Cancelled Albumin/Globulin Ratio Cancelled TSH (0.47-4.68) uIU/mL Urine RBC (0-5/HPF) Urine WBC (0-5/HPF) Ur Squamous Epith Cells (0-5/HPF) Urine Bacteria (None) Ur Culture Indicated? Salicylates (<20) mg/dL U Opiates 300ng/mL cut (Negative) Ur Oxycodone Screen (Negative) Urine Methadone Screen (Negative) Acetaminophen (10-30) ug/mL Ur Barbiturates Screen (Negative) U Tricyclic Antidepress (Negative) Ur Phencyclidine Scrn (Negative) Ur Amphetamines Screen (Negative) U Methamphetamines Scrn (Negative) Ur MDMA Scrn (Ecstasy) (Negative) U Benzodiazepines Scrn (Negative) [place] (0.6-1.2) mmol/L Urine Cocaine Screen (Negative) U Marijuana (THC) Screen (Negative) Ethyl Alcohol ( - 10) mg/dL SARS-CoV-2 (PCR) (Negative) 06/24/20 06/24/20 06/24/20 Range/Units 10:00 10:00 11:00 WBC RBC Hgb Hct MCV MCH MCHC RDW Plt Count Neut % (Auto) Lymph % (Auto) [place] % (Auto) Eos % (Auto) Baso % (Auto) Neut # (Auto) Lymph # (Auto) [place] # (Auto) Eos # (Auto) Baso # (Auto) Total Counted Seg Neutrophils % (38-70) % Band Neutrophils % (3-7) % Lymphocytes % (Manual) (25-45) % Atypical Lymphs % ( - 0) % Monocytes % (Manual) (2-11) % Neutrophils # (Manual) (9467-6295) /uL RBC Morphology Anisocytosis Sodium 142 Potassium 3.5 Chloride 103 Carbon Dioxide 23 BUN 14 Creatinine 0.56 L Estimated GFR > 60.0 BUN/Creatinine Ratio 25.0 H Glucose 88 Calcium 8.9 Total Bilirubin 1.8 H AST 134 H ALT 46 Alkaline Phosphatase 152 H D Total Creatine Kinase (55-170) U/L CK-MB (CK-2) CK-MB (CK-2) Rel Index Troponin I (0.01-0.034) ng/mL Total Protein 8.1 Albumin 4.0 Globulin 4.1 Albumin/Globulin Ratio 1.0 TSH 1.41 (0.47-4.68) uIU/mL Urine RBC (0-5/HPF) Urine WBC (0-5/HPF) Ur Squamous Epith Cells (0-5/HPF) Urine Bacteria (None) Ur Culture Indicated? Salicylates < 1.0 (<20) mg/dL U Opiates 300ng/mL cut (Negative) Ur Oxycodone Screen (Negative) Urine Methadone Screen (Negative) Acetaminophen < 10 L (10-30) ug/mL Ur Barbiturates Screen (Negative) U Tricyclic Antidepress (Negative) Ur Phencyclidine Scrn (Negative) Ur Amphetamines Screen (Negative) U Methamphetamines Scrn (Negative) Ur MDMA Scrn (Ecstasy) (Negative) U Benzodiazepines Scrn (Negative) [place] < 0.2 L (0.6-1.2) mmol/L Urine Cocaine Screen (Negative) U Marijuana (THC) Screen (Negative) Ethyl Alcohol 278 H ( - 10) mg/dL SARS-CoV-2 (PCR) Negative (Negative) 06/24/20 06/24/20 06/24/20 Range/Units 12:56 12:56 15:24 WBC RBC Hgb Hct MCV MCH MCHC RDW Plt Count Neut % (Auto) Lymph % (Auto) [place] % (Auto) Eos % (Auto) Baso % (Auto) Neut # (Auto) Lymph # (Auto) [place] # (Auto) Eos # (Auto) Baso # (Auto) Total Counted Seg Neutrophils % (38-70) % Band Neutrophils % (3-7) % Lymphocytes % (Manual) (25-45) % Atypical Lymphs % ( - 0) % Monocytes % (Manual) (2-11) % Neutrophils # (Manual) (2960-8514) /uL RBC Morphology Anisocytosis Sodium Potassium Chloride Carbon Dioxide BUN Creatinine Estimated GFR BUN/Creatinine Ratio Glucose Calcium Total Bilirubin AST ALT Alkaline Phosphatase Total Creatine Kinase 90 (55-170) U/L CK-MB (CK-2) TNP CK-MB (CK-2) Rel Index TNP Troponin I 0.032 (0.01-0.034) ng/mL Total Protein Albumin Globulin Albumin/Globulin Ratio TSH (0.47-4.68) uIU/mL Urine RBC 1-5/hpf (0-5/HPF) Urine WBC 0-1/hpf (0-5/HPF) Ur Squamous Epith Cells 0-1 /hpf (0-5/HPF) Urine Bacteria None seen (None) Ur Culture Indicated? Cult not indicated Salicylates (<20) mg/dL U Opiates 300ng/mL cut Negative (Negative) Ur Oxycodone Screen Negative (Negative) Urine Methadone Screen Negative (Negative) Acetaminophen (10-30) ug/mL Ur Barbiturates Screen Negative (Negative) U Tricyclic Antidepress Negative (Negative) Ur Phencyclidine Scrn Negative (Negative) Ur Amphetamines Screen Negative (Negative) U Methamphetamines Scrn Negative (Negative) Ur MDMA Scrn (Ecstasy) Negative (Negative) U Benzodiazepines Scrn Negative (Negative) [place] (0.6-1.2) mmol/L Urine Cocaine Screen Negative (Negative) U Marijuana (THC) Screen Negative (Negative) Ethyl Alcohol ( - 10) mg/dL SARS-CoV-2 (PCR) (Negative) Urine Dip Bedside Urine Glucose Negative Bedside Urine Bilirubin - Negative Bedside Urine Ketone +++ 80 Urine Specific [place] 1.025 Bedside Urine Occult Blood + Bedside Urine pH 6.0 Bedside Urine Protein ++ 100 Bedside Urine Urobilinogen - Negative Bedside Urine Nitrite - Negative Bedside Urine Leukocytes - Negative Esterase Discharge Plan Departure Patient Disposition: Home Clinical Impression: Alcoholism Alcohol intoxication Qualifiers: Complication of substance-induced condition: with unspecified complication Qualified Code(s): F10.929 - Alcohol use, unspecified with intoxication, unspecified Atrial fibrillation Qualifiers: Atrial fibrillation type: unspecified Qualified Code(s): I48.91 - Unspecified atrial fibrillation Instructions: Alcohol and Stress: There are Safer Ways to [place], Alcohol Use Disorder (Alternative Therapy), DI for Atrial Fibrillation, DI for Alcohol Use Disorder Activity Restrictions/Additional Instructions: Thank you for trusting us with your care today. As discussed, you tested coronavirus negative. I sent 2 prescriptions to [facility]. One is Librium which you can take every 8 hours as needed for detox. I am proud of you for seeking help for your alcoholism. Please continue AA meetings etcetera. Please reach out to your care team as well. The other is metoprolol for your heart rate. As discussed, your irregular heart rate increases your risk of stroke however blood thinners could be dangerous for you given your repeated falls. Please follow-up with primary care provider regarding this as soon as possible. As discussed, please come back to the emergency department for any acute concerns such as concern of heart attack, stroke, thoughts of hurting herself or anybody else etcetera Prescriptions: New chlordiazepoxide HCl 25 mg capsule 25 mg PO Q8H PRN (Reason: alcohol withdrawal) Qty: 7 RF: 0 metoprolol tartrate 25 mg tablet 12.5 mg PO BID Qty: 20 RF: 0 chlordiazepoxide HCl 25 mg capsule 25 mg PO Q8H PRN (Reason: alcohol withdrawal) Qty: 3 RF: 0 No Action multivitamin [Daily Multi-Vitamin] Tablet 1 tab PO QAM RF: 0 vitamin B complex Tablet 1 tab PO DAILY RF: 0 mecobalamin (vitamin B12) 500 mg PO DAILY RF: 0 calcium gluconate PO DAILY RF: 0 Adult Probiotic 3 billion cell capsule 3,000 mmu cells PO DAILY RF: 0 aspirin [Adult Low Dose Aspirin] 81 mg tablet,delayed release (DR/EC) 81 mg PO DAILY RF: 0 cholecalciferol (vitamin D3) 25 mcg (1,000 unit) capsule 4,000 unit PO DAILY RF: 0 Ultra CoQ10 75 mg capsule 75 mg PO DAILY RF: 0 magnesium PO RF: 0 ascorbic acid (vitamin C) 500 mg capsule 4,000 mg PO DAILY RF: 0 methocarbamol 750 mg tablet 750 mg PO DAILY RF: 0 omeprazole 20 mg capsule,delayed release(DR/EC) 20 mg PO DAILY RF: 0 melatonin 100 PO BEDTIME PRN (Reason: Sleep) RF: 0 duloxetine 60 mg capsule,delayed release(DR/EC) 60 mg PO DAILY Qty: 30 RF: 5 gabapentin 600 mg tablet 600 mg PO TID Qty: 90 RF: 3 naltrexone 50 mg tablet 50 mg PO DAILY Qty: 30 RF: 3 trazodone 100 mg tablet 100 mg PO BEDTIME Qty: 30 RF: 5 tamsulosin [Flomax] 0.4 mg capsule 0.8 mg PO DAILY Qty: 0 RF: 0 ferrous sulfate 325 mg (65 mg iron) Tablet 325 mg PO DAILY Qty: 90 RF: 0 cephalexin [Keflex] 500 mg capsule 500 mg PO QID Qty: 28 RF: 0 testosterone cypionate 200 mg/mL oil 200 mg IM Q3W RF: 0 chlordiazepoxide HCl 25 mg capsule 25 mg PO Q8H PRN (Reason: alcohol withdrawal) Qty: 8 RF: 0 Referrals: Maria Teresa Talley PA-C [Primary Care Provider] - <Paola Ramos, - Last Filed: 06/24/20 19:31> [facility] ED Attending Rosangela Attestation: I was immediately available in the department for consultation. Documentation has been reviewed. Patient case was discussed. Patient does appear to have AFib with RVR. He improved with metoprolol. He has had episodes in the past and been told he has episodes probably a combination of his alcohol use and chronic disease. Patient is not a candidate for anticoagulation with his multiple falls secondary to EtOH. He was given a prescription for metoprolol. He does not wish to stay in the hospital. His E prefers to return and is at appropriate baseline able to ambulate safely. His EKG does not show any ST changes he does not any chest pain or shortness of breath. His troponin is still in negative range. Patient has thrombocytopenia which have been slowly drifting down over time as well as a leukopenia.
[2020-06-24] MEDS: ONDANSETRON 4 MG/2 ML INJ IV (10:47)
[2020-06-24] MEDS: PANTOPRAZOLE 40 MG VIAL IV (10:47)
[2020-06-24] MEDS: THIAMINE 200 MG in SODIUM CHLORIDE 0.9% 50 ML 208 ML IV (10:48)
[2020-06-24 10:59] LABS: Thyroid Stimulating Hormone 1.41 uIU/mL (0.47-4.68)
[2020-06-24 11:38] LABS: COVID19 -Nasal RAPID Negative (Negative)
[2020-06-24] MEDS: LORazepam 2 MG/ML INJ 1 MG IV (11:57)
[2020-06-24 13:02] LABS: Bacteria Urine None Seen
[2020-06-24 13:05] LABS: UR Morphine/Opiate cutoff 300 Negative (Negative); Ur Creatinine Normal (Normal); Ur Specific Gravity Normal (Normal); Urine Amphetamines Negative (Negative); Urine Barbiturates Negative (Negative); Urine Benzodiazepines Negative (Negative); Urine Cocaine Negative (Negative); Urine MDMA Negative (Negative); Urine Methadone Negative (Negative); Urine Methamphetamines Negative (Negative); Urine Oxycodone Negative (Negative); Urine Phencyclidine Negative (Negative); Urine Tetrahydrocannabinol Negative (Negative); Urine Tricyclic Antidepressant Negative (Negative); Urine pH Normal (Normal)
[2020-06-24 13:08] LABS: RBC Urine 1-5/HPF (0-5/HPF); Squamous Epithelial Cell Urine 0-1 /HPF (0-5/HPF); WBC Urine 0-1/HPF (0-5/HPF)
[2020-06-24 13:09] LABS: Culture Indicated Urine Cult Not Indicated
[2020-06-24] MEDS: SODIUM CHLORIDE 0.9% 1,000 ML 250 ML IV (15:30)
[2020-06-24] MEDS: METOPROLOL TARTRATE 5 MG/5 ML INJ IV (15:30)
[2020-06-24 15:40] LABS: Creatine Kinase 90 U/L (55-170)
[2020-06-24 15:53] LABS: Troponin I 0.032 ng/mL (0.01-0.034)
== END 2020-06-24 17:26 | disposition home or self-care (01) ==
PROVIDERS: Emergency Provider Nurse Practitioner Family; PCP Student in an Organized Health Care Education/Training Program
DX: F10.129 Alcohol abuse with intoxication, unspecified (principal); Y90.8 Blood alcohol level of 240 mg/100 ml or more; I48.91 Unspecified atrial fibrillation; F32.9 Major depressive disorder, single episode, unspecified; K74.60 Unspecified cirrhosis of liver; I10 Essential (primary) hypertension; Z20.822 Contact with and (suspected) exposure to COVID-19
CPT/HCPCS: 36415; 80053; 80178; 80305; 80320; 80329; 81003; 81015; 82550; 84443; 84484; 85007; 85025; 87635; 93005; 93010; 96361; 96374; 96375; 99283; 99284; C9803; C9113; G0480; J2060; J2405

== ENCOUNTER → 2020-07-12 09:47 | Outpatient (CLI) | payer MEDICARE, OTHER, SELFPAY ==
--- NOTE | 2020-08-08 08:39 | P.HOLT.S_ITS ---
Cost Recorder Report Referral & Results Date Patient Seen: 07/12/20 Requesting provider: Maria Teresa Talley Indication: Atrial fibrillation Duration of monitoring (days): 3 Diary information: Was 1 patient triggered event This event was associated with (within 45 seconds) sinus rhythm only Data: Minimum heart rate identified was 56 beats per minute at 13:13 on 07/13/2020 Maximum sinus heart rate was 117 beats per minute at 12:38 on 07/14/2020 Maximum overall heart rate was 169 beats per minute at 15:22 on 07/12/2020 during a 5 beat run of SVT Less than 1% of identified beats rather ventricular supraventricular ectopic in origin 8 runs of SVT occurred with the fastest being the 5 be run above the longest lasting 11 seconds No atrial fibrillation identified Impression: 3 day equipment monitor phototypesetting showing rare brief runs of SVT as above Otherwise essentially unremarkable equipment monitor phototypesetting. Of note no episodes of atrial fibrillation identified on this study.
== END ==
PROVIDERS: PCP Student in an Organized Health Care Education/Training Program; Referring Provider Student in an Organized Health Care Education/Training Program; Visit Provider Student in an Organized Health Care Education/Training Program
DX: I48.91 Unspecified atrial fibrillation (principal)
CPT/HCPCS: 93246; 93248

== ENCOUNTER → 2020-09-04 10:02 | Outpatient (CLI) | payer MEDICARE, OTHER, SELFPAY ==
[2020-09-04 10:52] LABS: Add Manual Diff / Slide Review NO; Basophils Absolute Auto 0 /uL (0-100); Basophils Percent Auto 0.6 % (0-2); Eosinophils Absolute Auto 200 /uL (0-450); Eosinophils Percent Auto 2.8 % (2-4); Hematocrit 36.9 % (41-53); Hemoglobin 12.1 g/dL (13.5-17.5); Lymphocytes Absolute Auto 1400 /uL (1100-4500); Lymphocytes Percent Auto 24.4 % (25-40); Mean Corpuscular HGB Conc 32.8 % (30-36); Mean Corpuscular Hemoglobin 30.6 PG (26-34); Mean Corpuscular Volume 93.3 fL (80-100); Monocytes Absolute Auto 200 /uL (0-900); Neutrophils Absolute Auto 4000 /uL (1500-7000); Neutrophils Percent Auto 68.2 % (50-75); Platelet Count 91 X10^3/uL (150-400); Red Blood Cell Count 3.95 X10^6/uL (4.5-5.9); Red Cell Distribution Width 18.1 % (11.6-14.8); White Blood Cell Count 5.9 X10^3/uL (4.5-11.0)
[2020-09-04 11:09] LABS: Ferritin 80 ng/mL (18-464)
[2020-09-04 11:44] LABS: Alanine Aminotransferase 42 IU/L (<50); Albumin 3.3 g/dL (3.5-5.0); Alkaline Phosphatase 74 U/L (38-126); Aspartate Aminotransferase 40 IU/L (17-59); BUN Creatinine Ratio 31.8 (6-22); Bilirubin Total 1.1 mg/dL (0.2-1.3); Blood Urea Nitrogen 21 mg/dL (9-20); Carbon Dioxide 29 mmol/L (22-32); Chloride 101 mmol/L (98-107); Estimated Glomerular Filt Rate > 60.0 mL/min (>60); Globulin 3.4 g/dL (1.7-4.1); Glucose 112 mg/dL (80-110); HEMOLYSIS < 15 (0-50); Potassium 4.1 mmol/L (3.4-5.1); Sodium 135 mmol/L (137-145); Total Protein 6.7 g/dL (6.3-8.2)
== END ==
PROVIDERS: Internal Medicine; PCP Student in an Organized Health Care Education/Training Program; Referring Provider Student in an Organized Health Care Education/Training Program; Visit Provider Student in an Organized Health Care Education/Training Program
DX: F10.20 Alcohol dependence, uncomplicated (principal); K76.0 Fatty (change of) liver, not elsewhere classified; D63.8 Anemia in other chronic diseases classified elsewhere
CPT/HCPCS: 36415; 80053; 82728; 85025

== ENCOUNTER → 2020-10-04 13:29 | Outpatient (CLI) | payer MEDICARE, OTHER, SELFPAY ==
--- NOTE | 2020-11-07 08:49 | P.HOLT.S_ITS ---
Lime Spreader Report Referral & Results Date Patient Seen: 10/04/20 Requesting provider: Maria Teresa Talley Indication: Atrial fibrillation Duration of monitoring (days): 3 Diary information: There was 1 patient diary entry, but the timing indicated did not correlate with the period of time patient was wearing the device Data: Minimum heart rate was 59 beats per minute at 08:24 on 10/06/2020 Maximum sinus heart rate was 154 beats per minute at 03:08 on 10/05/2020 Maximum overall heart rate was 226 beats per minute at 04:59 on 10/05/2020 during a 10 beat run of SVT Approximately 3.3% of identified beats were supraventricular ectopic in origin which would classify them as occasional Less than 1% of identified beats were ventricular ectopic in origin which would classify them as rare There were 74 runs of SVT/atrial tachycardia with the longest lasting 2 minutes 6 seconds at a rate of 157 beats per minute and the fastest being the 10 beat run noted above Some of these episodes of SVT may possibly be very short runs of atrial fibrillation, difficult to be sure given their very short duration Impression: Essentially unremarkable 2+ day induction coordination engineer. Occasional PACs. Rare brief runs of SVT were identified with the possibility existing that these may be very brief runs of atrial fibrillation at least in part Clinical correlation suggested
== END ==
PROVIDERS: PCP Student in an Organized Health Care Education/Training Program; Referring Provider Student in an Organized Health Care Education/Training Program; Visit Provider Student in an Organized Health Care Education/Training Program
DX: I48.91 Unspecified atrial fibrillation (principal)
CPT/HCPCS: 93246; 93248

== ENCOUNTER → 2020-12-26 15:16 | Outpatient (CLI) | payer MEDICARE, OTHER, SELFPAY ==
--- NOTE | 2020-12-26 | DI.US.S_ITS ---
PROCEDURE: US SOFT TISSUE HEAD AND NECK INDICATIONS: RIGHT NECK MASS TECHNIQUE: Real-time scanning was performed of the neck region of interest, with image documentation. COMPARISON: None. FINDINGS: There is a nonspecific Polka focus of heterogeneous echogenicity within the right neck corresponding to area of palpable concern. It measures 4.1 x 3.1 x 2.4 cm. Increased vascularity is present. IMPRESSION: Nonspecific focus of heterogeneous echogenicity at the are palpable concern. While this could represent a markedly enlarged lymph node, fatty hilum is not clearly identified. Recommend correlation to infection or inflammation and short interval imaging follow-up is recommended. Otherwise, CT neck is recommended for additional evaluation. Dictated by: Victorina Olea M.D. on 12/26/2020 at 17:43 Approved by: Victorina Olea M.D. on 12/26/2020 at 17:44
== END ==
PROVIDERS: PCP Student in an Organized Health Care Education/Training Program; Referring Provider Internal Medicine; Visit Provider Internal Medicine
DX: R22.1 Localized swelling, mass and lump, neck (principal)
CPT/HCPCS: 76536

== ENCOUNTER 2021-01-03 11:32 | Emergency (ER) | payer MEDICARE, OTHER, SELFPAY ==
[2021-01-03] VITALS (14 sets, daily range): BP systolic 121–157; BP diastolic 65–89; PULSE 62–93; RESP 14–22; TEMP 36.4; O2SAT 96–99
[2021-01-03 12:23] LABS: Hematocrit 40.9 % (41-53); Hemoglobin 13.7 g/dL (13.5-17.5); Mean Corpuscular HGB Conc 33.6 % (30-36); Mean Corpuscular Hemoglobin 31.2 PG (26-34); Mean Corpuscular Volume 93.1 fL (80-100); Platelet Count 83 X10^3/uL (150-400); Red Cell Distribution Width 21.6 % (11.6-14.8); White Blood Cell Count 2.5 X10^3/uL (4.5-11.0)
[2021-01-03 12:24] LABS: Add Manual Diff / Slide Review YES
[2021-01-03 12:36] LABS: Alanine Aminotransferase 46 IU/L (<50); Albumin 3.5 g/dL (3.5-5.0); Alkaline Phosphatase 94 U/L (38-126); Aspartate Aminotransferase 91 IU/L (17-59); BUN Creatinine Ratio 24.1 (6-22); Bilirubin Total 0.8 mg/dL (0.2-1.3); Bilirubin Unconjugated 0.6 mg/dL (0.0-1.1); Blood Urea Nitrogen 14 mg/dL (9-20); Calcium 8.7 mg/dL (8.4-10.2); Carbon Dioxide 24 mmol/L (22-32); Chloride 103 mmol/L (98-107); Estimated Glomerular Filt Rate > 60.0 mL/min (>60); Ethanol (ETOH) 262 mg/dL; Globulin 3.4 g/dL (1.7-4.1); Glucose 80 mg/dL (80-110); HEMOLYSIS 27 (0-50); Lipase 72 U/L (23-300); Magnesium 1.3 mg/dL (1.6-2.3); Potassium 4.3 mmol/L (3.4-5.1); Sodium 140 mmol/L (137-145); Total Protein 6.9 g/dL (6.3-8.2)
[2021-01-03 12:38] LABS: Neutrophils Absolute Manual 550 /uL (3000-5900); Total Cells Counted 100
[2021-01-03 12:39] LABS: Anisocytosis 1+
[2021-01-03 12:41] LABS: COVID19 -Nasal RAPID Negative (Negative)
[2021-01-03] MEDS: MAGNESIUM SULFATE 2 GM, FOLIC ACID 1 MG, THIAMINE 100 MG, MULTIVITAMIN 10 ML in SODIUM ... IV (13:02)
--- NOTE | 2021-01-03 13:39 | ED.ALCOHOL ---
HPI - Alcohol General Chief Complaint: Toxicology Problem Stated Complaint: seriously intoxicated, need detox Time Seen by Provider: 01/03/21 12:04 Source: patient and other Mode of arrival: Ambulatory Limitations: no limitations History of Present Illness HPI narrative: 65-year-old gentleman with alcohol use disorder with multiple episodes of both outpatient treatment inpatient treatment and detox. He states that today is the day to stop drinking because ?I am sick and tired of being sick and tired?. His girlfriend a couple of months ago of psoriasis related issues. He himself has a history of gastric bypass 7 years ago he has lost about 200 lb and is off much of his medications. He drinks at least a pt of vodka daily and has done so for a number of years. He denies any seizures with withdrawal, his withdrawal symptoms are typically anxiety, nausea and cravings. He currently reports no suicidal or homicidal ideation and is cooperating completely with exam and hoping for helping getting to detox. He describes no fevers, cough or abdominal pain. He has had slight nausea but no actual vomiting. Occasional diarrhea but no dysuria. No recent falls or orthopedic trauma Related Data Home Medications Medication Instructions Recorded Confirmed tamsulosin 0.4 mg capsule (Flomax) 0.4 mg PO QPM #0 cap 06/23/19 01/03/21 testosterone cypionate 200 mg/mL 200 mg IM Q3W ml 06/23/19 01/03/21 intramuscular oil aspirin 81 mg tablet,delayed 81 mg PO DAILY 10/11/19 01/03/21 release (Adult Low Dose Aspirin) cholecalciferol (vitamin D3) 25 4,000 unit PO DAILY cap 10/11/19 01/03/21 mcg (1,000 unit) capsule multivitamin (Daily Multi-Vitamin) 1 tab PO QAM 10/11/19 01/03/21 omeprazole 20 mg capsule,delayed 20 mg PO QAM 10/11/19 01/03/21 release vitamin B complex 1 tab PO DAILY 10/11/19 01/03/21 gabapentin 600 mg tablet 600 mg PO TID PRN 01/03/21 01/03/21 testosterone cypionate 200 mg/mL 200 mg IM Q2W 01/03/21 01/03/21 intramuscular oil trazodone 100 mg tablet 100 mg PO BEDTIME PRN 01/03/21 01/03/21 Previous Rx's Medication Instructions Recorded lorazepam 1 mg tablet (Ativan) See Rx Instructions .ROUTE 01/03/21 .COMPLEX #10 tab Allergies Allergy/AdvReac Type Severity Reaction Status Date / Time hydrochlorothiazide Allergy Severe Anaphylaxis Verified 01/03/21 11:48 [HYDROCHLOROTHIAZIDE] lisinopril [LISINOPRIL] Allergy Severe Anaphylaxis Verified 01/03/21 11:48 Review of Systems Review of Systems Narrative: Remainder of complete review of systems is otherwise unremarkable except for that included in the HPI. Patient History Medical History (Updated 01/03/21 @ 18:35 by Annette Isabel MD) Alcohol use disorder, severe, in early remission Alcoholism Cirrhosis Hypertension Major depression Surgical History (Updated 01/03/21 @ 18:02 by Annette Isabel MD) H/O rhinoplasty History of fasciotomy 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 ) substance use type: does not use Smoking Status: Former smoker alcohol intake frequency: 3 or more drinks per day Alcohol type: hard liquor Substance Use Type: does not use Exam Narrative Exam Narrative: General: Chronically ill-appearing slightly intoxicated gentleman cooperative able to speak in full sentences HEENT: Moist mucous membranes, normal sclera with reactive pupils, mild exophthalmos Respiratory: Lungs are clear to auscultation, no wheezing no rales no rhonchi. Full and symmetrical air movement Cardiac: Mild tachycardia with Regular rate and rhythm no murmurs no bruits Abdomen: Obese, Soft, nontender, good bowel tones, no flank pain Skin: Warm and dry, chronic venous stasis changes, spider hemangioma no significant bruising Neurologic: otherwise Grossly neurologically intact with no obvious asymmetries or abnormalities Extremities: No trauma, Psych: Cooperative, Mildly intoxicated Initial Vital Signs Initial Vital Signs: Vital Signs Temperature 97.6 F 01/03/21 11:44 Pulse Rate 66 01/03/21 11:44 Respiratory Rate 15 01/03/21 11:44 Blood Pressure 157/77 H 01/03/21 11:44 Pulse Oximetry 96 01/03/21 11:44 Course Orders Ordered: ED Orders 01/03/21 12:02 COVID19 -Nasal swab/Pre-Proc Stat 01/03/21 12:17 Complete Blood Count AUTO DIFF Stat Comprehensive Metabolic Panel Stat Ethanol (ETOH) Stat Hepatic (Liver) Panel Stat Lipase Stat Magnesium Stat 01/03/21 12:22 EKG-12 Lead Stat 01/03/21 12:39 Consult to MOBILE DESIGNER - Hose Operator Stat 01/03/21 15:56 Ethanol (ETOH) Stat 01/03/21 16:12 Urinalysis and Microscopic Stat Urine Drug Screen, Rapid Stat Magnesium Sulfate 2 gm/ Folic Acid 1 mg/ Thiamine HCl 100 mg / Multivitamins 10 ml/ Sodium Chloride 1,015.2 mls @ 125 mls/hr IV NOW ONE Stop: 01/03/21 20:12 Last Admin: 01/03/21 13:02 Dose: 125 mls/hr Documented by: FLORIAN Lorazepam (Lorazepam 0.5 Mg Tablet) 0 mg PO CIWAPRN PRN; Protocol PRN Reason: Alcohol Withdrawal Last Admin: 01/03/21 17:02 Dose: 2 mg Documented by: Admin: 01/03/21 13:49 Dose: 1 mg Documented by: FLORIAN Vital Signs Vital signs: Vital Signs - 8 hr 01/03/21 11:44 01/03/21 12:33 01/03/21 12:34 Temperature 97.6 F Pulse Rate 66 62 63 Respiratory Rate 15 18 15 Blood Pressure 157/77 H 142/74 H Pulse Oximetry 96 01/03/21 13:00 01/03/21 13:30 01/03/21 14:00 Temperature Pulse Rate 72 72 75 Respiratory Rate 22 15 18 Blood Pressure 133/70 124/78 135/67 Pulse Oximetry 01/03/21 14:30 01/03/21 15:00 01/03/21 15:30 Temperature Pulse Rate 75 76 81 Respiratory Rate 14 17 17 Blood Pressure 121/69 124/65 127/70 Pulse Oximetry 99 01/03/21 16:00 01/03/21 16:30 01/03/21 17:00 Temperature Pulse Rate 83 93 H 86 Respiratory Rate 20 17 20 Blood Pressure 141/72 H 143/70 H 134/83 Pulse Oximetry 99 01/03/21 17:30 Temperature Pulse Rate 80 Respiratory Rate 22 Blood Pressure 145/89 H Pulse Oximetry MDM - Alcohol Lab Data Result diagrams: 01/03/21 12:17 01/03/21 12:17 Labs: Lab Results 01/03/21 01/03/21 01/03/21 Range/Units 12:02 12:17 12:17 WBC 2.5 L (4.5-11.0) X10^3/uL RBC 4.40 L (4.5-5.9) X10^6/uL Hgb 13.7 (13.5-17.5) g/dL Hct 40.9 L (41-53) % MCV 93.1 (80-100) fL MCH 31.2 (26-34) PG MCHC 33.6 (30-36) % RDW 21.6 H (11.6-14.8) % Plt Count 83 L (150-400) X10^3/uL Neut % (Auto) Not Reportable Lymph % (Auto) Not Reportable [place] % (Auto) Not Reportable Eos % (Auto) Not Reportable Baso % (Auto) Not Reportable Lymph # (Auto) Not Reportable [place] # (Auto) Not Reportable Baso # (Auto) Not Reportable Total Counted 100 Seg Neutrophils % 22.0 L (38-70) % Lymphocytes % (Manual) 60.0 H (25-45) % Atypical Lymphs % 7.0 H ( - 0) % Monocytes % (Manual) 8.0 (2-11) % Eosinophils % (Manual) 2.0 (2-4) % Basophils % (Manual) 1.0 (0-1) % Neutrophils # (Manual) 550 L (9223-8360) /uL RBC Morphology Not Reportable Anisocytosis 1+ H Sodium 140 (137-145) mmol/L Potassium 4.3 (3.4-5.1) mmol/L Chloride 103 (98-107) mmol/L Carbon Dioxide 24 (22-32) mmol/L BUN 14 (9-20) mg/dL Creatinine 0.58 L (0.66-1.25) mg/dL Estimated GFR > 60.0 (>60) mL/min BUN/Creatinine Ratio 24.1 H (6-22) Glucose 80 (80-110) mg/dL Calcium 8.7 (8.4-10.2) mg/dL Magnesium 1.3 L (1.6-2.3) mg/dL Total Bilirubin 0.8 (0.2-1.3) mg/dL Conjugated Bilirubin 0.0 (0.0-0.3) md/dL Unconjugated Bilirubin 0.6 (0.0-1.1) mg/dL AST 91 H (17-59) IU/L ALT 46 (<50) IU/L Alkaline Phosphatase 94 (38-126) U/L Total Protein 6.9 (6.3-8.2) g/dL Albumin 3.5 (3.5-5.0) g/dL Globulin 3.4 (1.7-4.1) g/dL Albumin/Globulin Ratio 1.0 (1.0-2.8) Lipase 72 (23-300) U/L Urine Color Urine Appearance Urine pH (4.5-8.0) Ur Specific [place] (1.000-1.035) Urine Protein (Negative) Urine Glucose (UA) (Negative) g/dL Urine Ketones (NEGATIVE) Urine Occult Blood (Negative) Urine Nitrate (Negative) Urine Bilirubin (NEGATIVE) Urine Urobilinogen (0.2) E.U./dL Ur Leukocyte Esterase (NEGATIVE) Urine RBC (0-5/HPF) Urine WBC (0-5/HPF) Ur Squamous Epith Cells (0-5/HPF) Urine Bacteria (None) Hyaline Casts (None) Urine Mucus (Negative) Ur Culture Indicated? U Opiates 300ng/mL cut (Negative) Ur Oxycodone Screen (Negative) Urine Methadone Screen (Negative) Ur Barbiturates Screen (Negative) U Tricyclic Antidepress (Negative) Ur Phencyclidine Scrn (Negative) Ur Amphetamines Screen (Negative) U Methamphetamines Scrn (Negative) Ur MDMA Scrn (Ecstasy) (Negative) U Benzodiazepines Scrn (Negative) Urine Cocaine Screen (Negative) U Marijuana (THC) Screen (Negative) Ethyl Alcohol 262 H ( - 10) mg/dL SARS-CoV-2 (PCR) Negative (Negative) 01/03/21 01/03/21 01/03/21 Range/Units 15:56 16:12 16:12 WBC (4.5-11.0) X10^3/uL RBC (4.5-5.9) X10^6/uL Hgb (13.5-17.5) g/dL Hct (41-53) % MCV (80-100) fL MCH (26-34) PG MCHC (30-36) % RDW (11.6-14.8) % Plt Count (150-400) X10^3/uL Neut % (Auto) Lymph % (Auto) [place] % (Auto) Eos % (Auto) Baso % (Auto) Lymph # (Auto) [place] # (Auto) Baso # (Auto) Total Counted Seg Neutrophils % (38-70) % Lymphocytes % (Manual) (25-45) % Atypical Lymphs % ( - 0) % Monocytes % (Manual) (2-11) % Eosinophils % (Manual) (2-4) % Basophils % (Manual) (0-1) % Neutrophils # (Manual) (8800-1332) /uL RBC Morphology Anisocytosis Sodium (137-145) mmol/L Potassium (3.4-5.1) mmol/L Chloride (98-107) mmol/L Carbon Dioxide (22-32) mmol/L BUN (9-20) mg/dL Creatinine (0.66-1.25) mg/dL Estimated GFR (>60) mL/min BUN/Creatinine Ratio (6-22) Glucose (80-110) mg/dL Calcium (8.4-10.2) mg/dL Magnesium (1.6-2.3) mg/dL Total Bilirubin (0.2-1.3) mg/dL Conjugated Bilirubin (0.0-0.3) md/dL Unconjugated Bilirubin (0.0-1.1) mg/dL AST (17-59) IU/L ALT (<50) IU/L Alkaline Phosphatase (38-126) U/L Total Protein (6.3-8.2) g/dL Albumin (3.5-5.0) g/dL Globulin (1.7-4.1) g/dL Albumin/Globulin Ratio (1.0-2.8) Lipase (23-300) U/L Urine Color Yellow Urine Appearance Clear Urine pH 7.0 (4.5-8.0) Ur Specific [place] 1.015 (1.000-1.035) Urine Protein Trace H (Negative) Urine Glucose (UA) Negative (Negative) g/dL Urine Ketones 3+ H (NEGATIVE) Urine Occult Blood Negative (Negative) Urine Nitrate Negative (Negative) Urine Bilirubin Negative (NEGATIVE) Urine Urobilinogen 2.0 H (0.2) E.U./dL Ur Leukocyte Esterase Negative (NEGATIVE) Urine RBC 0-1/hpf (0-5/HPF) Urine WBC 0-1/hpf (0-5/HPF) Ur Squamous Epith Cells 1-5 /hpf (0-5/HPF) Urine Bacteria Occasional (0-1) (None) Hyaline Casts 1-5/lpf (None) Urine Mucus 1+ H (Negative) Ur Culture Indicated? Cult not indicated U Opiates 300ng/mL cut Negative (Negative) Ur Oxycodone Screen Negative (Negative) Urine Methadone Screen Negative (Negative) Ur Barbiturates Screen Negative (Negative) U Tricyclic Antidepress Negative (Negative) Ur Phencyclidine Scrn Negative (Negative) Ur Amphetamines Screen Negative (Negative) U Methamphetamines Scrn Negative (Negative) Ur MDMA Scrn (Ecstasy) Negative (Negative) U Benzodiazepines Scrn Negative (Negative) Urine Cocaine Screen Negative (Negative) U Marijuana (THC) Screen Negative (Negative) Ethyl Alcohol 191 H ( - 10) mg/dL SARS-CoV-2 (PCR) (Negative) MDM Narrative Medical decision making narrative: 65-year-old gentleman with severe alcohol use disorder requesting help with detox. At this point he is medically cleared He is having minimal alcohol withdrawal symptoms currently. He will be given 2 mg of oral Ativan prior to discharge to [facility] detox. Prescription for brief Ativan taper will be given with to the patient Discharge Plan Departure Patient Disposition: Released, Other Clinical Impression: Alcohol use disorder, severe, dependence Instructions: DI for Alcohol Use Disorder Activity Restrictions/Additional Instructions: Good luck with detox and getting to sobriety Use ativan to help with withdrawal symptoms over the next days Prescriptions: New lorazepam [Ativan] 1 mg tablet See Rx Instructions .ROUTE .COMPLEX Qty: 10 RF: 0 No Action multivitamin [Daily Multi-Vitamin] Tablet 1 tab PO QAM RF: 0 vitamin B complex Tablet 1 tab PO DAILY RF: 0 aspirin [Adult Low Dose Aspirin] 81 mg tablet,delayed release (DR/EC) 81 mg PO DAILY RF: 0 cholecalciferol (vitamin D3) 25 mcg (1,000 unit) capsule 4,000 unit PO DAILY RF: 0 omeprazole 20 mg capsule,delayed release(DR/EC) 20 mg PO QAM RF: 0 tamsulosin [Flomax] 0.4 mg capsule 0.4 mg PO QPM Qty: 0 RF: 0 testosterone cypionate 200 mg/mL oil 200 mg IM Q2W RF: 0 gabapentin 600 mg tablet 600 mg PO TID PRN (Reason: Back Pain) RF: 0 trazodone 100 mg tablet 100 mg PO BEDTIME PRN (Reason: Insomnia) RF: 0 testosterone cypionate 200 mg/mL oil 200 mg IM Q3W RF: 0 Referrals: Maria Teresa Talley PA-C [Primary Care Provider] -
[2021-01-03] MEDS: LORazepam 0.5 MG TABLET PO ×2 (13:49→17:02)
--- NOTE | 2021-01-03 14:15 | PC.NURSE ---
Medication reconciliation completed w/ patient. Pt states he self weaned of duloxetine, metoprolol, naltrexone and takes gabapentin only as needed for discomfort. States now taking 'vivitrol' im q month.
[2021-01-03 16:16] LABS: Ur Creatinine Normal (Normal); Ur Specific Gravity Normal (Normal); Urine pH Normal (Normal)
[2021-01-03 16:16] LABS: Ethanol (ETOH) 191 mg/dL
[2021-01-03 16:17] LABS: UR Morphine/Opiate cutoff 300 Negative (Negative); Urine Amphetamines Negative (Negative); Urine Barbiturates Negative (Negative); Urine Benzodiazepines Negative (Negative); Urine Cocaine Negative (Negative); Urine MDMA Negative (Negative); Urine Methadone Negative (Negative); Urine Methamphetamines Negative (Negative); Urine Oxycodone Negative (Negative); Urine Phencyclidine Negative (Negative); Urine Tetrahydrocannabinol Negative (Negative); Urine Tricyclic Antidepressant Negative (Negative)
[2021-01-03 16:21] LABS: Appearance Urine UA CLEAR; Bilirubin Urine UA NEGATIVE (NEGATIVE); Color Urine UA YELLOW; Glucose Urine UA NEGATIVE (Negative); Ketones Urine UA 3+ (NEGATIVE); Leukocyte Esterase Urine UA NEGATIVE (NEGATIVE); Nitrite Urine UA NEGATIVE (Negative); Occult Blood Urine UA NEGATIVE (Negative); Protein Urine UA TRACE (Negative); Specific Gravity Urine UA 1.015 (1.000-1.035)
[2021-01-03 16:31] LABS: Bacteria Urine Occasional (0-1); Culture Indicated Urine Cult Not Indicated; Hyaline Casts Urine 1-5/LPF; Mucus Urine 1+ (Negative); RBC Urine 0-1/HPF (0-5/HPF); Squamous Epithelial Cell Urine 1-5 /HPF (0-5/HPF); WBC Urine 0-1/HPF (0-5/HPF)
--- NOTE | 2021-01-03 17:17 | CM.SWNOTE ---
ARTILLERY OR NAVAL GUNFIRE OBSERVER Assessment ARTILLERY OR NAVAL GUNFIRE OBSERVER - Manager Training Assessment ARTILLERY OR NAVAL GUNFIRE OBSERVER/Manager Training Assessment Time Spent with Patient Start date 01/03/21 Visit Start Time 15:45 End date 01/03/21 Visit End Time 16:05 Total time Care Management spent on 20 minutes patient visit-in minutes Substance Abuse Screening Include Onset, Duration, Intensity Presenting Problem Patient presents to this ED seeking ETOH detox and inpatient treatment. Precipitating Event(s) Patient endorses recent of ex girlfriend who was an ETOH user and of liver failure. Patient Strengths Patient is seeking help Current Behavioral Health Provider(s) None reported Include Facility, Provider, Ph. # Family Hx of Behavioral Abuse None reported Rehab Facilities? ((Date(s), Location(s) Patient endorses recent ) treatment at [facility] in July 2020- August 2020 for 28 days. Patient endorses going to detox several times as well. History of Withdrawal? Seizures? Patient denies seizures and endorses night sweats, shaking and anxiety. Longest Period of Sobriety 10 months in 2013 Psychosocial information & Support Patient is 65 y/o male who Systems resides alone in [place]. Patient endorses AA, children and grandchildren as supports. 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 Thought Processes (Astpbuc-Ldtbdzwj-Wfkm Coherent Ihoptxtf-Xglygcme-Zjcyktzmxb- Shzfhjljvodevz-Xmrenls-Juahvosxcuff- Thought Blocking) Speech (Oeewqd-Nmqd-Qnoevza-Rapid-Soft- Normal Loud-Pressured) Motor (Egttfp-Nyhycolsf-Ohec-Other) Normal Insight (Mtuh-Eicz-Ugbo/Limited) Fair/limited Judgement (Xssx-Bvzb-Yzpa/Limited) Fair/limited Impulse Control (Adequate-Impaired) adequate Memory (Isyunysui-Nqyvjl-Pbggax, adequate Impaired-Intact) Concentration (Intact-Impaired) intact Attention (Intact-Impaired) intact Behavior (Appropriate-Inappropriate) appropriate Risk Assessment Suicidal Ideation (Plan) No Homicidal Ideation (Plan) No Comment Patient denies HI and SI. Patient endorses that his current medication has made him have flat affect but he is seeking pleasure in life and is self aware not wanting to harm self or others Intervention Intervention ARTILLERY OR NAVAL GUNFIRE OBSERVER meets with patient. Patient endorses that he is seeking ETOH detox and inpatient treatment. Patient endorses that he last drank at 6 am this morning and drank throughout the night before and is unsure of how much. Patient endorses that at 6 AM he drank 1/2 a pint. Patient endorses drinking 750 mls of vodka a day. Patient endorses he goes to [facility] 3 days a week and he has informed his PO and CDP that he is seeking detox and inpatient treatment. ARTILLERY OR NAVAL GUNFIRE OBSERVER discusses detox with patient and calls [facility] for screening intake with patient. It is the opinion of this ARTILLERY OR NAVAL GUNFIRE OBSERVER that patient is appropriate for and will benefit from detox and recommended treatment. ARTILLERY OR NAVAL GUNFIRE OBSERVER reviews the above with ANUJA Diaz and ED provider Dr. Isabel who indicate agreement and understanding Plan RA Plan Patient to d/c to detox when medically clear. YADI Rodriguez
== END 2021-01-03 20:20 | disposition home or self-care (01) ==
PROVIDERS: Emergency Provider Emergency Medicine; PCP Student in an Organized Health Care Education/Training Program
DX: F10.229 Alcohol dependence with intoxication, unspecified (principal); Y90.6 Blood alcohol level of 120-199 mg/100 ml; Z20.822 Contact with and (suspected) exposure to COVID-19; I10 Essential (primary) hypertension; R00.0 Tachycardia, unspecified
CPT/HCPCS: 36415; 80053; 80076; 80305; 80320; 81001; 83690; 83735; 85007; 85025; 87635; 93005; 93010; 96360; 96361; 99284; C9803; J3475

== ENCOUNTER → 2021-01-09 09:40 | Outpatient (CLI) | payer MEDICARE, OTHER, SELFPAY ==
--- NOTE | 2021-01-09 09:41 | DI.CT.S_ITS ---
PROCEDURE: CT HEAD/BRAIN WO CON INDICATIONS: Localized swelling, mass and lump, neck TECHNIQUE: Noncontrast 4.5 mm thick angled axial sections acquired from the foramen magnum to the vertex, with coronal and sagittal reformats. For radiation dose reduction, the following was used: automated exposure control, adjustment of mA and/or kV according to patient size. COMPARISON: [facility], CT, CT HEAD/BRAIN WO CON, 06/17/2020, 22:32. FINDINGS: Image quality: Excellent. CSF spaces: Basal cisterns are patent. No extra-axial fluid collections. The ventricles are symmetric in size and shape. Brain: No intracranial bleeds or masses. There is cerebral volume loss for age, with resultant ventricular and sulcal prominence. There are periventricular and deep white matter chronic small vessel ischemic changes. There is intracranial internal carotid artery atherosclerosis. Skull and face: Calvarium and visualized facial bones appear intact, without suspicious lesions. Sinuses: Visualized sinuses and mastoids are clear. IMPRESSION: 1. Age-related volume loss and small vessel ischemic change. 2. No evidence of acute stroke, hemorrhage, or mass. Dictated by: Nathan Adames M.D. on 01/09/2021 at 10:15 Approved by: Nathan Adames M.D. on 01/09/2021 at 10:35
--- NOTE | 2021-01-09 09:41 | DI.CT.S_ITS ---
PROCEDURE: CT SOFT TISSUE NECK W CON INDICATIONS: Localized swelling, mass and lump, neck TECHNIQUE: After the administration of intravenous contrast, 3.0 mm axial sections acquired from the sella to the aortic arch. Additional oblique axial 3.0 mm sections acquired through the pharynx. 3 mm thick coronal and sagittal reformats were generated. For radiation dose reduction, the following was used: automated exposure control. COMPARISON: None. FINDINGS: Image quality: Excellent. Lymph nodes: No enlarged lymph nodes seen throughout the neck. Vessels: Visualized vasculature appears patent. Neck spaces: The oropharynx, nasopharynx, and pharynx demonstrate no mucosal lesions. The vocal cords, false vocal cords, pyriform sinuses, epiglottis, vallecula, and tongue base all appear normal. Extramucosal spaces appear unremarkable. No mass, soft tissue edema or soft tissue fluid collections identified deep to metallic BB localizer placed over the anterolateral right neck soft tissues in the area of clinical concern. Glands: The parotid and submandibular glands appear normal. 6 millimeter calcification noted in the anterior right floor of the mouth along the expected course the right submandibular duct. No submandibular ductal dilatation. Thyroid gland is unremarkable. Miscellaneous: Visualized brain and orbits appear normal. Mild mucosal thickening noted in the right maxillary sinus. Lung apices appear clear. Superficial soft tissues appear normal. Bones: No suspicious bony lesions. Spine degenerative disc disease and facet arthropathy. Visualized sinuses and mastoids appear unremarkable. IMPRESSION: 1. No abnormal mass, soft tissue edema or soft tissue fluid collections identified in region of clinical interest. 2. No lymphadenopathy based on size criteria. 3. No mucosal-based mass. Dictated by: Kasia Thomas MD, PhD on 01/09/2021 at 11:19 Approved by: Kasia Thomas MD, PhD on 01/09/2021 at 11:25
== END ==
PROVIDERS: PCP Student in an Organized Health Care Education/Training Program; Referring Provider Internal Medicine; Visit Provider Internal Medicine
DX: R22.1 Localized swelling, mass and lump, neck (principal); I65.29 Occlusion and stenosis of unspecified carotid artery
CPT/HCPCS: 70450; 70491

== ENCOUNTER 2021-01-25 16:51 | Emergency (ER) | payer MEDICARE, OTHER, SELFPAY ==
[2021-01-25 16:55] VITALS: BP 108/71; PULSE 113; RESP 15; TEMP 36.3; O2SAT 94; BMI 35.7
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
== END 2021-01-25 21:05 | disposition left against medical advice (07) ==
PROVIDERS: Emergency Provider Emergency Medicine; PCP Student in an Organized Health Care Education/Training Program
DX: F10.20 Alcohol dependence, uncomplicated (principal)
CPT/HCPCS: 99281

== ENCOUNTER 2021-01-27 15:55 | Emergency (ER) | payer MEDICARE, OTHER, SELFPAY ==
--- NOTE | 2021-01-27 15:51 | ED.ALCOHOL ---
HPI - Alcohol <Papo Espino PA-C - Last Filed: 01/30/21 12:05> General Chief Complaint: Toxicology Problem Stated Complaint: Wants Detox ETOH Time Seen by Provider: 01/27/21 16:00 History of Present Illness HPI narrative: Zacarias presents today with chief complaint of requesting alcohol detox. He reports that he has been drinking heavily for the last few days and in last 24 hours as drink over a 5th of hard alcohol. He has a longstanding history of alcohol abuse and has been to detox multiple times. He is wanting to get clean. He denies any previous hospitalizations due to alcohol detoxification. He denies any seizures or history of seizures with alcohol detox. He denies any headache, chest pain, nausea, vomiting, abdominal pain or any other acute concerns or complaints at this time. Related Data Home Medications Medication Instructions Recorded Confirmed tamsulosin 0.4 mg capsule (Flomax) 0.4 mg PO QPM #0 cap 06/23/19 01/03/21 testosterone cypionate 200 mg/mL 200 mg IM Q3W ml 06/23/19 01/03/21 intramuscular oil aspirin 81 mg tablet,delayed 81 mg PO DAILY 10/11/19 01/03/21 release (Adult Low Dose Aspirin) cholecalciferol (vitamin D3) 25 4,000 unit PO DAILY cap 10/11/19 01/03/21 mcg (1,000 unit) capsule multivitamin (Daily Multi-Vitamin) 1 tab PO QAM 10/11/19 01/03/21 omeprazole 20 mg capsule,delayed 20 mg PO QAM 10/11/19 01/03/21 release vitamin B complex 1 tab PO DAILY 10/11/19 01/03/21 gabapentin 600 mg tablet 600 mg PO TID PRN 01/03/21 01/03/21 testosterone cypionate 200 mg/mL 200 mg IM Q2W 01/03/21 01/03/21 intramuscular oil Previous Rx's Medication Instructions Recorded lorazepam 1 mg tablet (Ativan) See Rx Instructions .ROUTE 01/03/21 .COMPLEX #10 tab trazodone 100 mg tablet 100 mg PO BEDTIME PRN #30 tab 01/11/21 Allergies Allergy/AdvReac Type Severity Reaction Status Date / Time hydrochlorothiazide Allergy Severe Anaphylaxis Verified 01/25/21 17:00 [HYDROCHLOROTHIAZIDE] lisinopril [LISINOPRIL] Allergy Severe Anaphylaxis Verified 01/25/21 17:00 Review of Systems <Papo Espino PA-C - Last Filed: 01/30/21 12:05> Review of Systems Narrative: As per HPI Patient History <Papo Espino PA-C - Last Filed: 01/30/21 12:05> Medical History (Updated 01/30/21 @ 12:05 by Papo Espino PA-C) Alcohol use disorder, severe, in early remission Alcoholism Cirrhosis Hypertension Major depression Surgical History (Updated 01/03/21 @ 18:02 by Annette Isabel MD) H/O rhinoplasty History of fasciotomy 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 ) substance use type: does not use Smoking Status: Former smoker alcohol intake frequency: 3 or more drinks per day Alcohol type: hard liquor Substance Use Type: does not use Exam <Papo Espino PA-C - Last Filed: 01/30/21 12:05> Narrative Exam Narrative: Exam Narrative: Const General: cooperative, healthy appearing, comfortable, no acute distress, well developed and well groomed Nutritional Appearance: Elevated BMI Orientation: alert and oriented x3 HENMT Head: normal to inspection and atraumatic Ears: hearing grossly normal bilaterally Nose: external nose normal and nares normal Face and sinus: normal facial exam Neck Neck: normal visual inspection and supple Resp Effort & Inspection: normal respiratory effort, able to speak in complete sentences, no audible wheezes, not labored, no nasal flaring and no respiratory distress, clear to auscultation bilaterally Cardiac Slightly tachycardic rate, regular rhythm GI Nondistended, nontender to palpation. Skin No significant jaundice or pallor noted. Neuro General: alert, oriented x3, gait normal, tone normal and moves all extremities Cognition: normal cognition Speech: speech normal Gait: normal gait Psych Appearance: grossly normal and well kempt Mental Status: mental status grossly normal Speech and Movement: speech and movement normal Mood: congruent mood Affect: normal affect Initial Vital Signs Initial Vital Signs: Vital Signs Temperature 98.2 F 01/27/21 16:06 Pulse Rate 102 H 01/27/21 16:06 Respiratory Rate 18 01/27/21 16:06 Blood Pressure 122/57 L 01/27/21 16:06 Pulse Oximetry 92 01/27/21 16:06 <Elena Jason DO - Last Filed: 02/01/21 01:40> Initial Vital Signs Initial Vital Signs: Vital Signs Temperature 98.2 F 01/27/21 16:06 Pulse Rate 102 H 01/27/21 16:06 Respiratory Rate 18 01/27/21 16:06 Blood Pressure 122/57 L 01/27/21 16:06 Pulse Oximetry 92 01/27/21 16:06 Course <Papo Espino PA-C - Last Filed: 01/30/21 12:05> Orders Ordered: Discontinued Medications Sodium Chloride (Normal Saline 0.9%) 1,000 mls @ 1,000 mls/hr IV BOLUS ONE Stop: 01/27/21 17:35 Last Infusion: 01/27/21 19:58 Dose: 0 mls/hr Documented by: Admin: 01/27/21 17:00 Dose: 1,000 mls/hr Documented by: GRACIE Vital Signs Vital signs: Vital Signs - 8 hr 01/27/21 16:06 Temperature 98.2 F Pulse Rate 102 H Respiratory Rate 18 Blood Pressure 122/57 L Pulse Oximetry 92 <Elena Jason DO - Last Filed: 02/01/21 01:40> Orders Ordered: Discontinued Medications Sodium Chloride (Normal Saline 0.9%) 1,000 mls @ 1,000 mls/hr IV BOLUS ONE Stop: 01/27/21 17:35 Last Infusion: 01/27/21 19:58 Dose: 0 mls/hr Documented by: Admin: 01/27/21 17:00 Dose: 1,000 mls/hr Documented by: GRACIE Vital Signs Vital signs: Vital Signs - 8 hr 01/27/21 16:06 Temperature 98.2 F Pulse Rate 102 H Respiratory Rate 18 Blood Pressure 122/57 L Pulse Oximetry 92 MDM - Alcohol <Papo Espino PA-C - Last Filed: 01/30/21 12:05> Lab Data Labs: Lab Results 01/27/21 01/27/21 01/27/21 Range/Units 16:48 18:22 19:36 U Opiates 300ng/mL cut Negative (Negative) Ur Oxycodone Screen Negative (Negative) Urine Methadone Screen Negative (Negative) Ur Barbiturates Screen Negative (Negative) U Tricyclic Antidepress Negative (Negative) Ur Phencyclidine Scrn Negative (Negative) Ur Amphetamines Screen Negative (Negative) U Methamphetamines Scrn Negative (Negative) Ur MDMA Scrn (Ecstasy) Negative (Negative) U Benzodiazepines Scrn Negative (Negative) Urine Cocaine Screen Negative (Negative) U Marijuana (THC) Screen Negative (Negative) Ethyl Alcohol 399 H ( - 10) mg/dL SARS-CoV-2 (PCR) Negative (Negative) Urine Dip Bedside Urine Glucose Negative Bedside Urine Bilirubin - Negative Bedside Urine Ketone +++ 80 Urine Specific [place] 1.030 Bedside Urine Occult Blood - Negative Bedside Urine pH 6 Bedside Urine Protein + 30 Bedside Urine Urobilinogen - Negative Bedside Urine Nitrite - Negative Bedside Urine Leukocytes - Negative Esterase MDM Narrative Medical decision making narrative: Zacarias has a known history of alcohol abuse and has been to detox multiple times. He does not have any other acute concerns or complaints at this time. We called around to different detox facilities and they are all full at this time. Because of this, he is electing to go home and follow up with the detox facilities tomorrow. We confirmed that there are available beds tomorrow and gave him the appropriate contact information. He is going to stay with a neighbor whom is coming to pick him up. Return precautions discussed with the patient. Patient verbalizes understanding and agrees to plan and has no further concerns at this time. Thank you A lersp-os-tgyl system was used with the dictation of this note. Please disregard any spelling or grammatical errors. <Elena Jason, DO - Last Filed: 02/01/21 01:40> Lab Data Labs: Lab Results 01/27/21 01/27/21 01/27/21 Range/Units 16:48 18:22 19:36 U Opiates 300ng/mL cut Negative (Negative) Ur Oxycodone Screen Negative (Negative) Urine Methadone Screen Negative (Negative) Ur Barbiturates Screen Negative (Negative) U Tricyclic Antidepress Negative (Negative) Ur Phencyclidine Scrn Negative (Negative) Ur Amphetamines Screen Negative (Negative) U Methamphetamines Scrn Negative (Negative) Ur MDMA Scrn (Ecstasy) Negative (Negative) U Benzodiazepines Scrn Negative (Negative) Urine Cocaine Screen Negative (Negative) U Marijuana (THC) Screen Negative (Negative) Ethyl Alcohol 399 H ( - 10) mg/dL SARS-CoV-2 (PCR) Negative (Negative) Urine Dip Bedside Urine Glucose Negative Bedside Urine Bilirubin - Negative Bedside Urine Ketone +++ 80 Urine Specific [place] 1.030 Bedside Urine Occult Blood - Negative Bedside Urine pH 6 Bedside Urine Protein + 30 Bedside Urine Urobilinogen - Negative Bedside Urine Nitrite - Negative Bedside Urine Leukocytes - Negative Esterase Discharge Plan Departure Patient Disposition: Home Clinical Impression: Alcoholic intoxication Qualifiers: Complication of substance-induced condition: uncomplicated Qualified Code(s): F10.920 - Alcohol use, unspecified with intoxication, uncomplicated Instructions: DI for Alcohol Poisoning Activity Restrictions/Additional Instructions: Please call Rachel Spe[facility] tomorrow morning around 10:00 a.m. [phone] They will be able to assist you with detox. Recommend that you go to detox for alcohol withdrawn the not tried to do it on your own. Please follow-up your primary care provider in 2-3 days Return to the emergency department if you have any new or worsening symptoms Prescriptions: No Action multivitamin [Daily Multi-Vitamin] Tablet 1 tab PO QAM RF: 0 vitamin B complex Tablet 1 tab PO DAILY RF: 0 aspirin [Adult Low Dose Aspirin] 81 mg tablet,delayed release (DR/EC) 81 mg PO DAILY RF: 0 cholecalciferol (vitamin D3) 25 mcg (1,000 unit) capsule 4,000 unit PO DAILY RF: 0 omeprazole 20 mg capsule,delayed release(DR/EC) 20 mg PO QAM RF: 0 tamsulosin [Flomax] 0.4 mg capsule 0.4 mg PO QPM Qty: 0 RF: 0 trazodone 100 mg tablet 100 mg PO BEDTIME PRN (Reason: Insomnia) Qty: 30 RF: 5 testosterone cypionate 200 mg/mL oil 200 mg IM Q2W RF: 0 gabapentin 600 mg tablet 600 mg PO TID PRN (Reason: Back Pain) RF: 0 lorazepam [Ativan] 1 mg tablet See Rx Instructions .ROUTE .COMPLEX Qty: 10 RF: 0 testosterone cypionate 200 mg/mL oil 200 mg IM Q3W RF: 0 Referrals: Talley,Maria Teresa, PA-C [Primary Care Provider] - <Elena Jason DO - Last Filed: 02/01/21 01:40> Sign Out Provider Sign Out Attestation: I was immediately available in the department for consultation. Documentation has been reviewed. I agree with assessment and plan.
[2021-01-27 16:06] VITALS: BP 122/57; PULSE 102; RESP 18; TEMP 36.8; O2SAT 92; BMI 35.7
[2021-01-27] MEDS: SODIUM CHLORIDE 0.9% 1,000 ML 1000 ML IV (17:00)
[2021-01-27 17:17] LABS: Ethanol (ETOH) 399 mg/dL
[2021-01-27 18:37] LABS: UR Morphine/Opiate cutoff 300 Negative (Negative); Ur Creatinine Normal (Normal); Ur Specific Gravity Normal (Normal); Urine Amphetamines Negative (Negative); Urine Barbiturates Negative (Negative); Urine Benzodiazepines Negative (Negative); Urine Cocaine Negative (Negative); Urine MDMA Negative (Negative); Urine Methadone Negative (Negative); Urine Methamphetamines Negative (Negative); Urine Oxycodone Negative (Negative); Urine Phencyclidine Negative (Negative); Urine Tetrahydrocannabinol Negative (Negative); Urine Tricyclic Antidepressant Negative (Negative); Urine pH Normal (Normal)
[2021-01-27 20:20] LABS: COVID19 -Nasal RAPID Negative (Negative)
[2021-01-27 20:59] VITALS: TEMP 36.9
== END 2021-01-27 21:01 | disposition home or self-care (01) ==
PROVIDERS: Emergency Provider Physician Assistant; PCP Student in an Organized Health Care Education/Training Program
DX: F10.229 Alcohol dependence with intoxication, unspecified (principal); Z20.822 Contact with and (suspected) exposure to COVID-19
CPT/HCPCS: 36415; 80305; 80320; 81003; 87635; 96360; 96361; 99284; C9803

== ENCOUNTER 2021-01-28 06:30 | Emergency (ER) | payer MEDICARE, OTHER, SELFPAY ==
[2021-01-28] VITALS (22 sets, daily range): BP systolic 132–150; BP diastolic 60–75; PULSE 68–106; RESP 15–25; TEMP 37.2–37.4; O2SAT 80–99; BMI 35.7
--- NOTE | 2021-01-28 06:23 | ED.GIBLEED ---
HPI - GI Bleed <Elena Casie, DO - Last Filed: 01/31/21 17:58> General Chief complaint: GI Bleed Stated complaint: poss GI bleed Time Seen by Provider: 01/28/21 06:32 History of Present Illness HPI Narrative: Patient is a 65-year-old male who is well known to this facility and myself history of alcoholism. He was here last night requesting detox. He went home and was expected to go to detox today day. Unfortunately he did go home and drink some alcohol but had 2 or 3 large episodes of black tarry stool. He has never had any history of GI bleeding in the past. He has no abdominal pain. No nausea or vomiting. He is feeling a bit shaky worried he might be getting start of withdrawals. He has no chest pain or shortness of breath. Related Data Home Medications Medication Instructions Recorded Confirmed tamsulosin 0.4 mg capsule (Flomax) 0.4 mg PO QPM #0 cap 06/23/19 01/03/21 testosterone cypionate 200 mg/mL 200 mg IM Q3W ml 06/23/19 01/03/21 intramuscular oil aspirin 81 mg tablet,delayed 81 mg PO DAILY 10/11/19 01/03/21 release (Adult Low Dose Aspirin) cholecalciferol (vitamin D3) 25 4,000 unit PO DAILY cap 10/11/19 01/03/21 mcg (1,000 unit) capsule multivitamin (Daily Multi-Vitamin) 1 tab PO QAM 10/11/19 01/03/21 omeprazole 20 mg capsule,delayed 20 mg PO QAM 10/11/19 01/03/21 release vitamin B complex 1 tab PO DAILY 10/11/19 01/03/21 gabapentin 600 mg tablet 600 mg PO TID PRN 01/03/21 01/03/21 testosterone cypionate 200 mg/mL 200 mg IM Q2W 01/03/21 01/03/21 intramuscular oil Previous Rx's Medication Instructions Recorded lorazepam 1 mg tablet (Ativan) See Rx Instructions .ROUTE 01/03/21 .COMPLEX #10 tab trazodone 100 mg tablet 100 mg PO BEDTIME PRN #30 tab 01/11/21 Allergies Allergy/AdvReac Type Severity Reaction Status Date / Time hydrochlorothiazide Allergy Severe Anaphylaxis Verified 01/25/21 17:00 [HYDROCHLOROTHIAZIDE] lisinopril [LISINOPRIL] Allergy Severe Anaphylaxis Verified 01/25/21 17:00 Review of Systems <Elena Jason DO - Last Filed: 01/31/21 17:58> Review of Systems Narrative: GENERAL: Denies chills, fatigue, malaise, fever, sweats, travel HEENT: Denies sinus pain, ear pain, sore throat, difficulty swallowing, neck pain RESPIRATORY: Denies dyspnea, cough, wheezing, hemoptysis, sputum. CARDIOVASCULAR: Denies chest pain, palpitations, orthopnea, edema GASTROINTESTINAL: See HPI : Denies dysuria, frequency, incontinence, hematuria, urinary retention, flank pain. MUSCULOSKELETAL: Denies weakness, joint pain, or bony pain SKIN: No rash, no erythema, no pruritus NEUROLOGIC: Denies weakness, dizziness, headache, numbness, change in speech, confusion PSYCHIATRIC: Alcohol abuse, see HPI 12 point review of systems is negative except for those stated above and HPI Patient History <Elena Jason DO - Last Filed: 01/31/21 17:58> Medical History (Updated 01/30/21 @ 12:05 by Papo Espino PA-C) Alcohol use disorder, severe, in early remission Alcoholism Cirrhosis Hypertension Major depression Surgical History (Updated 01/03/21 @ 18:02 by Annette Isabel MD) H/O rhinoplasty History of fasciotomy 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 ) substance use type: does not use Smoking Status: Former smoker alcohol intake frequency: 3 or more drinks per day Alcohol type: hard liquor Substance Use Type: does not use Exam <Elena Jason DO - Last Filed: 01/31/21 17:58> Initial Vital Signs Initial Vital Signs: Vital Signs Temperature 99.4 F 01/28/21 06:56 Pulse Rate 92 H 01/28/21 06:56 Respiratory Rate 20 01/28/21 06:56 Blood Pressure 142/60 H 01/28/21 06:56 Pulse Oximetry 95 01/28/21 06:56 GENERAL: Alert 65 year old male HEENT: Head atraumatic,EOMI, pupils reactive, face symmetric, moist mucous membranes CARDIOVASCULAR: Regular rate and rhythm without murmurs, rubs or gallops. RESPIRATORY: Breath sounds equal bilaterally, no wheezes rales or rhonchi. ABDOMEN: Soft, nontender. Normoactive bowel sounds all 4 quadrants. No guarding or rebound. RECTAL: Hemoccult-positive, EXTREMITIES: Normal range of motion, no clubbing or edema. Neurovascularly intact NEUROLOGICAL: Alert and oriented x4.Normal gait and speech. SKIN: Warm, dry, no laceration, no petechiae, no rashes or lesions. <Marcello Recinos, DO - Last Filed: 01/28/21 19:24> Initial Vital Signs Initial Vital Signs: Vital Signs Temperature 99.4 F 01/28/21 06:56 Pulse Rate 92 H 01/28/21 06:56 Respiratory Rate 20 01/28/21 06:56 Blood Pressure 142/60 H 01/28/21 06:56 Pulse Oximetry 95 01/28/21 06:56 Course <Elena Jason DO - Last Filed: 01/31/21 17:58> Orders Ordered: Discontinued Medications Sodium Chloride (Normal Saline 0.9%) 1,000 mls @ 1,000 mls/hr IV BOLUS ONE Stop: 01/28/21 09:00 Last Admin: 01/28/21 14:14 Dose: Not Given Documented by: Sodium Chloride (Normal Saline 0.9%) 1,000 mls @ 150 mls/hr IV CONT SARAH Last Infusion: 01/28/21 14:13 Dose: Infused Documented by: Lorazepam (Lorazepam 2 Mg/Ml Inj) 1 mg IV NOW ONE Stop: 01/28/21 10:52 Last Admin: 01/28/21 11:51 Dose: 1 mg Documented by: Lorazepam (Lorazepam 0.5 Mg Tablet) 1 mg PO Q2HR PRN PRN Reason: withdrawl Stop: 01/29/21 14:17 Pantoprazole Sodium (Pantoprazole 40 Mg Vial) 40 mg IV NOW ONE Stop: 01/28/21 06:29 Last Admin: 01/28/21 06:55 Dose: 40 mg Documented by: Phenobarbital (Phenobarbital 65 Mg/Ml Vial) 260 mg IV NOW ONE Stop: 01/28/21 06:29 Last Admin: 01/28/21 06:55 Dose: 260 mg Documented by: Vital Signs Vital signs: Vital Signs - 8 hr 01/28/21 11:30 01/28/21 12:00 01/28/21 12:30 Pulse Rate 89 96 H 106 H Respiratory Rate 19 15 21 Blood Pressure Pulse Oximetry 96 97 93 01/28/21 13:00 01/28/21 13:15 01/28/21 13:30 Pulse Rate 98 H 106 H 103 H Respiratory Rate 18 16 18 Blood Pressure 143/72 H 150/75 H Pulse Oximetry 89 L 94 96 01/28/21 14:00 01/28/21 17:43 Pulse Rate 95 H 68 Respiratory Rate 19 18 Blood Pressure 132/63 138/64 Pulse Oximetry 93 99 <Marcello Recinos DO - Last Filed: 01/28/21 19:24> Orders Ordered: Discontinued Medications Sodium Chloride (Normal Saline 0.9%) 1,000 mls @ 1,000 mls/hr IV BOLUS ONE Stop: 01/28/21 09:00 Last Admin: 01/28/21 14:14 Dose: Not Given Documented by: Sodium Chloride (Normal Saline 0.9%) 1,000 mls @ 150 mls/hr IV CONT SARAH Last Infusion: 01/28/21 14:13 Dose: Infused Documented by: Lorazepam (Lorazepam 2 Mg/Ml Inj) 1 mg IV NOW ONE Stop: 01/28/21 10:52 Last Admin: 01/28/21 11:51 Dose: 1 mg Documented by: Lorazepam (Lorazepam 0.5 Mg Tablet) 1 mg PO Q2HR PRN PRN Reason: withdrawl Stop: 01/29/21 14:17 Pantoprazole Sodium (Pantoprazole 40 Mg Vial) 40 mg IV NOW ONE Stop: 01/28/21 06:29 Last Admin: 01/28/21 06:55 Dose: 40 mg Documented by: Phenobarbital (Phenobarbital 65 Mg/Ml Vial) 260 mg IV NOW ONE Stop: 01/28/21 06:29 Last Admin: 01/28/21 06:55 Dose: 260 mg Documented by: Vital Signs Vital signs: Vital Signs - 8 hr 01/28/21 11:30 01/28/21 12:00 01/28/21 12:30 Pulse Rate 89 96 H 106 H Respiratory Rate 19 15 21 Blood Pressure Pulse Oximetry 96 97 93 08/16/21 13:00 01/28/21 13:15 01/28/21 13:30 Pulse Rate 98 H 106 H 103 H Respiratory Rate 18 16 18 Blood Pressure 143/72 H 150/75 H Pulse Oximetry 89 L 94 96 01/28/21 14:00 01/28/21 17:43 Pulse Rate 95 H 68 Respiratory Rate 19 18 Blood Pressure 132/63 138/64 Pulse Oximetry 93 99 MDM - GI Bleed <Elena Jason DO - Last Filed: 01/31/21 17:58> Lab Data Result diagrams: 01/28/21 09:07 01/28/21 06:50 Labs: Lab Results 01/28/21 01/28/21 01/28/21 Range/Units 06:29 06:50 06:50 WBC 3.8 L (4.5-11.0) X10^3/uL RBC 4.52 (4.5-5.9) X10^6/uL Hgb 13.9 (13.5-17.5) g/dL Hct 41.9 (41-53) % MCV 92.8 (80-100) fL MCH 30.8 (26-34) PG MCHC 33.2 (30-36) % RDW 20.0 H (11.6-14.8) % Plt Count 74 L (150-400) X10^3/uL Neut % (Auto) 49.0 L (50-75) % Lymph % (Auto) 40.5 H (25-40) % [place] % (Auto) 8.8 (3-14) % Eos % (Auto) 0.2 L (2-4) % Baso % (Auto) 1.5 (0-2) % Neut # (Auto) 1900 (7466-3593) /uL Lymph # (Auto) 1500 (5061-8446) /uL [place] # (Auto) 300 (0-900) /uL Eos # (Auto) 0 (0-450) /uL Baso # (Auto) 100 (0-100) /uL PT 11.9 (10.1-12.7) SECONDS INR 1.1 (0.9-1.3) APTT 29 (26.4-36.2) SECONDS Sodium (137-145) mmol/L Potassium (3.4-5.1) mmol/L Chloride (98-107) mmol/L Carbon Dioxide (22-32) mmol/L BUN (9-20) mg/dL Creatinine (0.66-1.25) mg/dL Estimated GFR (>60) mL/min BUN/Creatinine Ratio (6-22) Glucose (80-110) mg/dL Lactate (0.7-2.1) mmol/L Calcium (8.4-10.2) mg/dL Total Bilirubin (0.2-1.3) mg/dL AST (17-59) IU/L ALT (<50) IU/L Alkaline Phosphatase (38-126) U/L Total Protein (6.3-8.2) g/dL Albumin (3.5-5.0) g/dL Globulin (1.7-4.1) g/dL Albumin/Globulin Ratio (1.0-2.8) Ethyl Alcohol ( - 10) mg/dL Blood Type A Negative Antibody Screen Negative 01/28/21 01/28/21 01/28/21 Range/Units 06:50 06:50 06:50 WBC (4.5-11.0) X10^3/uL RBC (4.5-5.9) X10^6/uL Hgb (13.5-17.5) g/dL Hct (41-53) % MCV (80-100) fL MCH (26-34) PG MCHC (30-36) % RDW (11.6-14.8) % Plt Count (150-400) X10^3/uL Neut % (Auto) (50-75) % Lymph % (Auto) (25-40) % [place] % (Auto) (3-14) % Eos % (Auto) (2-4) % Baso % (Auto) (0-2) % Neut # (Auto) (6940-7490) /uL Lymph # (Auto) (1457-9243) /uL [place] # (Auto) (0-900) /uL Eos # (Auto) (0-450) /uL Baso # (Auto) (0-100) /uL PT (10.1-12.7) SECONDS INR (0.9-1.3) APTT (26.4-36.2) SECONDS Sodium 137 (137-145) mmol/L Potassium 3.9 (3.4-5.1) mmol/L Chloride 99 (98-107) mmol/L Carbon Dioxide 22 (22-32) mmol/L BUN 13 (9-20) mg/dL Creatinine 0.59 L (0.66-1.25) mg/dL Estimated GFR > 60.0 (>60) mL/min BUN/Creatinine Ratio 22.0 (6-22) Glucose 100 (80-110) mg/dL Lactate 3.4 H (0.7-2.1) mmol/L Calcium 8.3 L (8.4-10.2) mg/dL Total Bilirubin 0.9 (0.2-1.3) mg/dL AST 86 H (17-59) IU/L ALT 36 (<50) IU/L Alkaline Phosphatase 121 (38-126) U/L Total Protein 6.9 (6.3-8.2) g/dL Albumin 3.6 (3.5-5.0) g/dL Globulin 3.3 (1.7-4.1) g/dL Albumin/Globulin Ratio 1.1 (1.0-2.8) Ethyl Alcohol 146 H ( - 10) mg/dL Blood Type Antibody Screen 01/28/21 01/28/21 Range/Units 09:07 09:07 WBC (4.5-11.0) X10^3/uL RBC (4.5-5.9) X10^6/uL Hgb 12.8 L (13.5-17.5) g/dL Hct 38.5 L (41-53) % MCV (80-100) fL MCH (26-34) PG MCHC (30-36) % RDW (11.6-14.8) % Plt Count (150-400) X10^3/uL Neut % (Auto) (50-75) % Lymph % (Auto) (25-40) % [place] % (Auto) (3-14) % Eos % (Auto) (2-4) % Baso % (Auto) (0-2) % Neut # (Auto) (4533-7967) /uL Lymph # (Auto) (7603-0827) /uL [place] # (Auto) (0-900) /uL Eos # (Auto) (0-450) /uL Baso # (Auto) (0-100) /uL PT (10.1-12.7) SECONDS INR (0.9-1.3) APTT (26.4-36.2) SECONDS Sodium (137-145) mmol/L Potassium (3.4-5.1) mmol/L Chloride (98-107) mmol/L Carbon Dioxide (22-32) mmol/L BUN (9-20) mg/dL Creatinine (0.66-1.25) mg/dL Estimated GFR (>60) mL/min BUN/Creatinine Ratio (6-22) Glucose (80-110) mg/dL Lactate 2.8 H (0.7-2.1) mmol/L Calcium (8.4-10.2) mg/dL Total Bilirubin (0.2-1.3) mg/dL AST (17-59) IU/L ALT (<50) IU/L Alkaline Phosphatase (38-126) U/L Total Protein (6.3-8.2) g/dL Albumin (3.5-5.0) g/dL Globulin (1.7-4.1) g/dL Albumin/Globulin Ratio (1.0-2.8) Ethyl Alcohol ( - 10) mg/dL Blood Type Antibody Screen MDM Narrative Medical decision making narrative: Patient is a 65-year-old male history of alcoholism now having black tarry stools and guaiac-positive consistent with GI bleed. Patient is given Protonix. He is having some shaking as well given him a dose of phenobarbital. Patient signed out to Dr. Recinos Blood work is pending <Marcello Recinos DO - Last Filed: 01/28/21 19:24> Lab Data Labs: Lab Results 01/28/21 01/28/21 01/28/21 Range/Units 06:29 06:50 06:50 WBC 3.8 L (4.5-11.0) X10^3/uL RBC 4.52 (4.5-5.9) X10^6/uL Hgb 13.9 (13.5-17.5) g/dL Hct 41.9 (41-53) % MCV 92.8 (80-100) fL MCH 30.8 (26-34) PG MCHC 33.2 (30-36) % RDW 20.0 H (11.6-14.8) % Plt Count 74 L (150-400) X10^3/uL Neut % (Auto) 49.0 L (50-75) % Lymph % (Auto) 40.5 H (25-40) % [place] % (Auto) 8.8 (3-14) % Eos % (Auto) 0.2 L (2-4) % Baso % (Auto) 1.5 (0-2) % Neut # (Auto) 1900 (3867-9186) /uL Lymph # (Auto) 1500 (2369-5925) /uL [place] # (Auto) 300 (0-900) /uL Eos # (Auto) 0 (0-450) /uL Baso # (Auto) 100 (0-100) /uL PT 11.9 (10.1-12.7) SECONDS INR 1.1 (0.9-1.3) APTT 29 (26.4-36.2) SECONDS Sodium (137-145) mmol/L Potassium (3.4-5.1) mmol/L Chloride (98-107) mmol/L Carbon Dioxide (22-32) mmol/L BUN (9-20) mg/dL Creatinine (0.66-1.25) mg/dL Estimated GFR (>60) mL/min BUN/Creatinine Ratio (6-22) Glucose (80-110) mg/dL Lactate (0.7-2.1) mmol/L Calcium (8.4-10.2) mg/dL Total Bilirubin (0.2-1.3) mg/dL AST (17-59) IU/L ALT (<50) IU/L Alkaline Phosphatase (38-126) U/L Total Protein (6.3-8.2) g/dL Albumin (3.5-5.0) g/dL Globulin (1.7-4.1) g/dL Albumin/Globulin Ratio (1.0-2.8) Ethyl Alcohol ( - 10) mg/dL Blood Type A Negative Antibody Screen Negative 01/28/21 01/28/21 01/28/21 Range/Units 06:50 06:50 06:50 WBC (4.5-11.0) X10^3/uL RBC (4.5-5.9) X10^6/uL Hgb (13.5-17.5) g/dL Hct (41-53) % MCV (80-100) fL MCH (26-34) PG MCHC (30-36) % RDW (11.6-14.8) % Plt Count (150-400) X10^3/uL Neut % (Auto) (50-75) % Lymph % (Auto) (25-40) % [place] % (Auto) (3-14) % Eos % (Auto) (2-4) % Baso % (Auto) (0-2) % Neut # (Auto) (3623-3899) /uL Lymph # (Auto) (3168-0373) /uL [place] # (Auto) (0-900) /uL Eos # (Auto) (0-450) /uL Baso # (Auto) (0-100) /uL PT (10.1-12.7) SECONDS INR (0.9-1.3) APTT (26.4-36.2) SECONDS Sodium 137 (137-145) mmol/L Potassium 3.9 (3.4-5.1) mmol/L Chloride 99 (98-107) mmol/L Carbon Dioxide 22 (22-32) mmol/L BUN 13 (9-20) mg/dL Creatinine 0.59 L (0.66-1.25) mg/dL Estimated GFR > 60.0 (>60) mL/min BUN/Creatinine Ratio 22.0 (6-22) Glucose 100 (80-110) mg/dL Lactate 3.4 H (0.7-2.1) mmol/L Calcium 8.3 L (8.4-10.2) mg/dL Total Bilirubin 0.9 (0.2-1.3) mg/dL AST 86 H (17-59) IU/L ALT 36 (<50) IU/L Alkaline Phosphatase 121 (38-126) U/L Total Protein 6.9 (6.3-8.2) g/dL Albumin 3.6 (3.5-5.0) g/dL Globulin 3.3 (1.7-4.1) g/dL Albumin/Globulin Ratio 1.1 (1.0-2.8) Ethyl Alcohol 146 H ( - 10) mg/dL Blood Type Antibody Screen 01/28/21 01/28/21 Range/Units 09:07 09:07 WBC (4.5-11.0) X10^3/uL RBC (4.5-5.9) X10^6/uL Hgb 12.8 L (13.5-17.5) g/dL Hct 38.5 L (41-53) % MCV (80-100) fL MCH (26-34) PG MCHC (30-36) % RDW (11.6-14.8) % Plt Count (150-400) X10^3/uL Neut % (Auto) (50-75) % Lymph % (Auto) (25-40) % [place] % (Auto) (3-14) % Eos % (Auto) (2-4) % Baso % (Auto) (0-2) % Neut # (Auto) (6706-0289) /uL Lymph # (Auto) (9941-4899) /uL [place] # (Auto) (0-900) /uL Eos # (Auto) (0-450) /uL Baso # (Auto) (0-100) /uL PT (10.1-12.7) SECONDS INR (0.9-1.3) APTT (26.4-36.2) SECONDS Sodium (137-145) mmol/L Potassium (3.4-5.1) mmol/L Chloride (98-107) mmol/L Carbon Dioxide (22-32) mmol/L BUN (9-20) mg/dL Creatinine (0.66-1.25) mg/dL Estimated GFR (>60) mL/min BUN/Creatinine Ratio (6-22) Glucose (80-110) mg/dL Lactate 2.8 H (0.7-2.1) mmol/L Calcium (8.4-10.2) mg/dL Total Bilirubin (0.2-1.3) mg/dL AST (17-59) IU/L ALT (<50) IU/L Alkaline Phosphatase (38-126) U/L Total Protein (6.3-8.2) g/dL Albumin (3.5-5.0) g/dL Globulin (1.7-4.1) g/dL Albumin/Globulin Ratio (1.0-2.8) Ethyl Alcohol ( - 10) mg/dL Blood Type Antibody Screen [facility] Narrative Medical decision making narrative: Patient is a 65-year-old male history of alcoholism now having black tarry stools and guaiac-positive consistent with GI bleed. Patient is given Protonix. He is having some shaking as well given him a dose of phenobarbital. Patient signed out to Dr. Recinos Blood work is pending Dr recinos; received turned over. Reviewed patient's history and physical and labs. Performed my own independent exam. Patient is a known alcoholic. He has never had black tarry stools in the past. Has also had a Leola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. H&H is unchanged. Vital signs of remained stable. He is no abdominal tenderness. I suspect that his lower GI bleed is most likely related to gastritis secondary to his alcohol. I did discuss the case with General surgery who stated that the patient could follow-up with the GI clinic as an outpatient. He needs to continue his PPI. He states he only occasionally take this medication. We did discuss that he does need to take this every day. We also then had a discussion about his alcohol use. Patient states he would like to go to detox. He was seen by social work. Patient is medically cleared. He will be discharged to detox and was given information for his follow-up with GI. Discharge Plan Departure Patient Disposition: Home Clinical Impression: Alcohol use disorder, GI bleed Instructions: Gastrointestinal Bleeding Activity Restrictions/Additional Instructions: The black colored stools that you are having is most likely related to a gastritis because of your alcohol use. Ideally stopping the use of alcohol would be the most beneficial thing that you can do to help with this. You also need to continue your omeprazole on a daily basis starting today. We were able to get you a follow-up appointment with the GI providers here at the hospital. An appointment was scheduled for you for February 19 at 1000 hours in the morning. You can contact the [place] surgeon's group at [phone] if you need to change this appointment for any reason however I would recommend you try our best to make this appointment. Prescriptions: No Action multivitamin [Daily Multi-Vitamin] Tablet 1 tab PO QAM RF: 0 vitamin B complex Tablet 1 tab PO DAILY RF: 0 aspirin [Adult Low Dose Aspirin] 81 mg tablet,delayed release (DR/EC) 81 mg PO DAILY RF: 0 cholecalciferol (vitamin D3) 25 mcg (1,000 unit) capsule 4,000 unit PO DAILY RF: 0 omeprazole 20 mg capsule,delayed release(DR/EC) 20 mg PO QAM RF: 0 tamsulosin [Flomax] 0.4 mg capsule 0.4 mg PO QPM Qty: 0 RF: 0 trazodone 100 mg tablet 100 mg PO BEDTIME PRN (Reason: Insomnia) Qty: 30 RF: 5 testosterone cypionate 200 mg/mL oil 200 mg IM Q2W RF: 0 gabapentin 600 mg tablet 600 mg PO TID PRN (Reason: Back Pain) RF: 0 lorazepam [Ativan] 1 mg tablet See Rx Instructions .ROUTE .COMPLEX Qty: 10 RF: 0 testosterone cypionate 200 mg/mL oil 200 mg IM Q3W RF: 0 Referrals: Maria Teresa Talley PA-C [Primary Care Provider] -
[2021-01-28] MEDS: PANTOPRAZOLE 40 MG VIAL IV (06:55)
[2021-01-28] MEDS: PHENobarbital 65 MG/ML VIAL 260 MG IV (06:55)
[2021-01-28 07:11] LABS: INR 1.1 (0.9-1.3); Prothrombin Time 11.9 SECONDS (10.1-12.7)
[2021-01-28 07:14] LABS: PTT Partial Thromboplastin Tim 29 SECONDS (26.4-36.2)
[2021-01-28 07:28] LABS: Add Manual Diff / Slide Review NO; Basophils Absolute Auto 100 /uL (0-100); Basophils Percent Auto 1.5 % (0-2); Eosinophils Absolute Auto 0 /uL (0-450); Eosinophils Percent Auto 0.2 % (2-4); Hematocrit 41.9 % (41-53); Hemoglobin 13.9 g/dL (13.5-17.5); Lymphocytes Absolute Auto 1500 /uL (1100-4500); Lymphocytes Percent Auto 40.5 % (25-40); Mean Corpuscular HGB Conc 33.2 % (30-36); Mean Corpuscular Hemoglobin 30.8 PG (26-34); Mean Corpuscular Volume 92.8 fL (80-100); Monocytes Absolute Auto 300 /uL (0-900); Monocytes Percent Auto 8.8 % (3-14); Neutrophils Absolute Auto 1900 /uL (1500-7000); Platelet Count 74 X10^3/uL (150-400); Red Blood Cell Count 4.52 X10^6/uL (4.5-5.9); White Blood Cell Count 3.8 X10^3/uL (4.5-11.0)
[2021-01-28 07:54] LABS: Lactate (Lactic Acid) 3.4 mmol/L (0.7-2.1)
[2021-01-28 07:55] LABS: Alanine Aminotransferase 36 IU/L (<50); Albumin 3.6 g/dL (3.5-5.0); Albumin Globulin Ratio 1.1 (1.0-2.8); Alkaline Phosphatase 121 U/L (38-126); Aspartate Aminotransferase 86 IU/L (17-59); Bilirubin Total 0.9 mg/dL (0.2-1.3); Blood Urea Nitrogen 13 mg/dL (9-20); Calcium 8.3 mg/dL (8.4-10.2); Carbon Dioxide 22 mmol/L (22-32); Chloride 99 mmol/L (98-107); Estimated Glomerular Filt Rate > 60.0 mL/min (>60); Ethanol (ETOH) 146 mg/dL; Globulin 3.3 g/dL (1.7-4.1); Glucose 100 mg/dL (80-110); HEMOLYSIS 24 (0-50); Potassium 3.9 mmol/L (3.4-5.1); Sodium 137 mmol/L (137-145); Total Protein 6.9 g/dL (6.3-8.2)
[2021-01-28] MEDS: SODIUM CHLORIDE 0.9% 1,000 ML 150 ML IV (08:13)
[2021-01-28 08:58] LABS: Reflexed Lactate in 2 Hours Y
[2021-01-28 09:12] LABS: Hematocrit 38.5 % (41-53); Hemoglobin 12.8 g/dL (13.5-17.5)
[2021-01-28 09:31] LABS: Lactate 2HR (Lactic Acid Rflx) 2.8 mmol/L (0.7-2.1)
[2021-01-28] MEDS: LORazepam 2 MG/ML INJ 1 MG IV (11:51)
--- NOTE | 2021-01-28 14:01 | CM.SWNOTE ---
CAREER DEVELOPMENT COORDINATOR Assessment Note CAREER DEVELOPMENT COORDINATOR receives consult and enters room to meet with patient. Patient is 65 y/o male who presents to this ED with concern for black stools and GI bleed as a result of ETOH use. Patient presented to this ED on 01/25/21 and 01/27/21 due to ETOH withdrawal and seeking detox and treatment. Patient is A/Ox4 and presents a fatigued. Patient endorses that his last drink was last evening aprox 12 hours ago. Patient endorses he drank 500 mls of vodka and his daily use is about 750 mls of vodka a day. Patient has been to detox recently and is seeking inpatient treatment but he is only aware of one facility that takes his insurance at [facility]. Patient endorses lack of sleep and food and drink intake. Patient endorses his desire to stop drinking safely. CAREER DEVELOPMENT COORDINATOR discusses how his ETOH intake is impacting his health. Patient endorses he wants to go to [facility]. CAREER DEVELOPMENT COORDINATOR calls [facility] with patient for patient intake. Patient endorses DT, anxiety, shakes and sweats as his hx of withdrawal symptoms. Patient presents as shaky. CAREER DEVELOPMENT COORDIN[facility]. CAREER DEVELOPMENT COORDINATOR calls [facility] regarding [facility] inpatient, intake reports that they have no [facility] beds and employees are currently on strike so there is no known time when beds will be available. CAREER DEVELOPMENT COORDINATOR searches for medicare approved inpatient providers for [facility] and CAREER DEVELOPMENT COORDINATOR could not identify anything further. CAREER DEVELOPMENT COORDINATOR faxes clinicals to [facility] and reviews the above with ED provider Dr. Recinos who indicates agreement and understanding. Patient to d/c to [facility] via taxi and to receive support for seeking inpatient treatment. YADI Rodriguez
--- NOTE | 2021-01-28 18:23 | CM.SWNOTE ---
PERFORMANCE ENGINEER Note [facility] accepts patient and states that they will have a bed for patient at 1999. Patient contacts his neighbor and coordinates that she come to ED and bring patient clothing and belongings. Patient's neighbor arrives at 1745, PERFORMANCE ENGINEER meets with neighbor and informs them that patient does not have a bed at detox until 1999 and suggests leaving this ED at aprox 1930. Neighbor indicates understanding and inquires if patient is going to treatment. PERFORMANCE ENGINEER endorses that patient does not have a bed for inpatient but has a bed for detox. Patient's neighbor endorses she will return to ED around 191, to picking tech patient upon d/c to take him to [facility]. Neighbor indicates concern for patient's well being, ability to care for self and dog. Neighbor endorses that patient is seen at grocery store buying alcohol in pajamas and falling on the ground and also asking everyone he knows to purchase him more alcohol. Neighbor endorses concerns regarding the cleanliness of patient's home. Based on these allegations, PERFORMANCE ENGINEER is to report concerns to APS. APS Online Report Confirmation Number: [id number] Plan: Patient to d/c to [facility] via transport by his neighbor, PERFORMANCE ENGINEER to call [facility] upon patient's d/c from the ED YADI Rodriguez
== END 2021-01-28 19:39 | disposition home or self-care (01) ==
PROVIDERS: Emergency Medicine; Emergency Provider Emergency Medicine; PCP Student in an Organized Health Care Education/Training Program
DX: K92.2 Gastrointestinal hemorrhage, unspecified (principal); F10.10 Alcohol abuse, uncomplicated; Y90.6 Blood alcohol level of 120-199 mg/100 ml
CPT/HCPCS: 80053; 80320; 83605; 85014; 85018; 85025; 85610; 85730; 86850; 86900; 86901; 96361; 96374; 96375; 99283; 99284; C9113; J2060; J2560

== ENCOUNTER 2021-02-13 12:44 | Emergency (ER) | payer MEDICARE, OTHER, SELFPAY ==
[2021-02-13 12:50] VITALS: BP 127/66; PULSE 112; RESP 20; TEMP 36.7; O2SAT 99
[2021-02-13 13:19] LABS: Add Manual Diff / Slide Review NO; Basophils Absolute Auto 100 /uL (0-100); Basophils Percent Auto 2.8 % (0-2); Eosinophils Absolute Auto 0 /uL (0-450); Eosinophils Percent Auto 0.3 % (2-4); Hematocrit 40.8 % (41-53); Hemoglobin 13.7 g/dL (13.5-17.5); Lymphocytes Absolute Auto 1400 /uL (1100-4500); Lymphocytes Percent Auto 41.2 % (25-40); Mean Corpuscular HGB Conc 33.6 % (30-36); Mean Corpuscular Hemoglobin 32.1 PG (26-34); Mean Corpuscular Volume 95.5 fL (80-100); Monocytes Absolute Auto 300 /uL (0-900); Monocytes Percent Auto 9.5 % (3-14); Neutrophils Absolute Auto 1500 /uL (1500-7000); Neutrophils Percent Auto 46.2 % (50-75); Platelet Count 272 X10^3/uL (150-400); Red Blood Cell Count 4.27 X10^6/uL (4.5-5.9); Red Cell Distribution Width 19.5 % (11.6-14.8); White Blood Cell Count 3.3 X10^3/uL (4.5-11.0)
[2021-02-13] MEDS: LORazepam 2 MG/ML INJ 1 MG IV (13:27)
[2021-02-13 13:33] LABS: Acetaminophen < 10 ug/mL (10-30); Alanine Aminotransferase 21 IU/L (<50); Albumin 3.6 g/dL (3.5-5.0); Albumin Globulin Ratio 1.1 (1.0-2.8); Alkaline Phosphatase 88 U/L (38-126); Aspartate Aminotransferase 49 IU/L (17-59); BUN Creatinine Ratio 17.1 (6-22); Bilirubin Total 1.1 mg/dL (0.2-1.3); Blood Urea Nitrogen 12 mg/dL (9-20); Calcium 9.2 mg/dL (8.4-10.2); Carbon Dioxide 23 mmol/L (22-32); Chloride 104 mmol/L (98-107); Estimated Glomerular Filt Rate > 60.0 mL/min (>60); Ethanol (ETOH) 173 mg/dL; Globulin 3.2 g/dL (1.7-4.1); Glucose 91 mg/dL (80-110); HEMOLYSIS < 15 (0-50); Magnesium 1.2 mg/dL (1.6-2.3); Potassium 4.4 mmol/L (3.4-5.1); Salicylate < 1.0 mg/dL (<20); Sodium 141 mmol/L (137-145); Total Protein 6.8 g/dL (6.3-8.2)
[2021-02-13 14:04] LABS: Free T4, Direct Thyroxine 1.21 ng/dL (0.78-2.19)
[2021-02-13 14:17] LABS: COVID19 -Nasal RAPID Negative (Negative)
--- NOTE | 2021-02-13 14:50 | ED.MEDCLEAR ---
HPI - Medical Clearance <Rupali Tabor PA-C - Last Filed: 02/13/21 22:07> General Chief complaint: Medical Clearance Stated complaint: Wants detox Time Seen by Provider: 02/13/21 13:18 Source: patient and EMS Mode of arrival: EMS History of Present Illness HPI Narrative: 65-year-old male PMH HTN, depression, cirrhosis, alcoholism who presents to the ER requesting alcohol detox. States he drinks a 750 mL 5th of vodka daily. Last strength either late last evening or early this morning. Does report some shakiness but denies any history of withdrawal seizures, vomiting, abdominal pain or any other additional symptoms. He has history prior alcohol detox inpatient hospitalizations. Denies SI, HI, or audiovisual hallucinations. Related Information Home Medications Medication Instructions Recorded Confirmed tamsulosin 0.4 mg capsule (Flomax) 0.4 mg PO QPM #0 cap 06/23/19 01/03/21 testosterone cypionate 200 mg/mL 200 mg IM Q3W ml 06/23/19 01/03/21 intramuscular oil aspirin 81 mg tablet,delayed 81 mg PO DAILY 10/11/19 01/03/21 release (Adult Low Dose Aspirin) cholecalciferol (vitamin D3) 25 4,000 unit PO DAILY cap 10/11/19 01/03/21 mcg (1,000 unit) capsule multivitamin (Daily Multi-Vitamin) 1 tab PO QAM 10/11/19 01/03/21 omeprazole 20 mg capsule,delayed 20 mg PO QAM 10/11/19 01/03/21 release vitamin B complex 1 tab PO DAILY 10/11/19 01/03/21 gabapentin 600 mg tablet 600 mg PO TID PRN 01/03/21 01/03/21 testosterone cypionate 200 mg/mL 200 mg IM Q2W 01/03/21 01/03/21 intramuscular oil Previous Rx's Medication Instructions Recorded lorazepam 1 mg tablet (Ativan) See Rx Instructions .ROUTE 01/03/21 .COMPLEX #10 tab trazodone 100 mg tablet 100 mg PO BEDTIME PRN #30 tab 01/11/21 Allergies Allergy/AdvReac Type Severity Reaction Status Date / Time hydrochlorothiazide Allergy Severe Anaphylaxis Verified 01/25/21 17:00 [HYDROCHLOROTHIAZIDE] lisinopril [LISINOPRIL] Allergy Severe Anaphylaxis Verified 01/25/21 17:00 Review of Systems <Rupali Tabor PA-C - Last Filed: 02/13/21 22:07> Review of Systems Narrative: General: denies fever, chills Head/Neck: denies headache, neck pain Eyes: denies visual changes, eye pain Cardio: denies chest pain, palpitations Respiratory: denies shortness of breath, cough GI: denies abdominal pain, nausea, vomiting, or diarrhea : denies dysuria, hematuria MSK: denies joint pain, muscle weakness Skin: denies rash, itching Neuro: denies numbness, tingling Patient History <Rupali Tabor PA-C - Last Filed: 02/13/21 22:07> Medical History Alcohol use disorder, severe, in early remission Alcoholism Cirrhosis Hypertension Major depression Surgical History H/O rhinoplasty History of fasciotomy 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 ) substance use type: does not use Smoking Status: Former smoker alcohol intake frequency: 3 or more drinks per day Alcohol type: hard liquor Substance Use Type: does not use Exam <Rupali Tabor PA-C - Last Filed: 02/13/21 22:07> Narrative Exam Narrative: Independently reviewed vitals signs and nursing notes. General: Awake, alert, nontoxic, no cardiorespiratory distress Head/Neck: Atraumatic, neck full range of motion Eyes: EOMI, conjunctiva normal Nose: nares patent, no rhinorrheas Cardio: Regular rate and rhythm, no peripheral edema Respiratory: respirations unlabored without wheezing, stridor, or rales. No retractions. GI: Abdomen soft, nontender MSK: Moves all extremities, neurovascularly intact Skin: Normal capillary refill, no rash Neuro: Normal speech and cognition, normal gait Initial Vital Signs Initial Vital Signs: Vital Signs Temperature 98.1 F 02/13/21 12:50 Pulse Rate 112 H 02/13/21 12:50 Respiratory Rate 02/13/21 12:50 Blood Pressure 127/66 02/13/21 12:50 Pulse Oximetry 99 02/13/21 12:50 <Drew Tinoco DO - Last Filed: 02/14/21 06:57> Initial Vital Signs Initial Vital Signs: Vital Signs Temperature 98.1 F 02/13/21 12:50 Pulse Rate 112 H 02/13/21 12:50 Respiratory Rate 20 02/13/21 12:50 Blood Pressure 127/66 02/13/21 12:50 Pulse Oximetry 99 02/13/21 12:50 MDM - Medical Clearance <Rupali Tabor PA-C - Last Filed: 02/13/21 22:07> Lab Data Result diagrams: 02/13/21 13:06 02/13/21 13:06 Labs: Lab Results 02/13/21 02/13/21 02/13/21 Range/Units 13:06 13:06 13:06 WBC 3.3 L (4.5-11.0) X10^3/uL RBC 4.27 L (4.5-5.9) X10^6/uL Hgb 13.7 (13.5-17.5) g/dL Hct 40.8 L (41-53) % MCV 95.5 (80-100) fL MCH 32.1 (26-34) PG MCHC 33.6 (30-36) % RDW 19.5 H (11.6-14.8) % Plt Count 272 (150-400) X10^3/uL Neut % (Auto) 46.2 L (50-75) % Lymph % (Auto) 41.2 H (25-40) % [place] % (Auto) 9.5 (3-14) % Eos % (Auto) 0.3 L (2-4) % Baso % (Auto) 2.8 H (0-2) % Neut # (Auto) 1500 (8637-2596) /uL Lymph # (Auto) 1400 (3300-4872) /uL [place] # (Auto) 300 (0-900) /uL Eos # (Auto) 0 (0-450) /uL Baso # (Auto) 100 (0-100) /uL Sodium 141 (137-145) mmol/L Potassium 4.4 (3.4-5.1) mmol/L Chloride 104 (98-107) mmol/L Carbon Dioxide 23 (22-32) mmol/L BUN 12 (9-20) mg/dL Creatinine 0.70 (0.66-1.25) mg/dL Estimated GFR > 60.0 (>60) mL/min BUN/Creatinine Ratio 17.1 (6-22) Glucose 91 (80-110) mg/dL Calcium 9.2 (8.4-10.2) mg/dL Magnesium 1.2 L (1.6-2.3) mg/dL Total Bilirubin 1.1 (0.2-1.3) mg/dL AST 49 (17-59) IU/L ALT 21 (<50) IU/L Alkaline Phosphatase 88 (38-126) U/L Total Protein 6.8 (6.3-8.2) g/dL Albumin 3.6 (3.5-5.0) g/dL Globulin 3.2 (1.7-4.1) g/dL Albumin/Globulin Ratio 1.1 (1.0-2.8) TSH 1.10 (0.47-4.68) uIU/mL Free T4 1.21 (0.78-2.19) ng/dL Salicylates < 1.0 (<20) mg/dL U Opiates 300ng/mL cut (Negative) Ur Oxycodone Screen (Negative) Urine Methadone Screen (Negative) Acetaminophen < 10 L (10-30) ug/mL Ur Barbiturates Screen (Negative) U Tricyclic Antidepress (Negative) Ur Phencyclidine Scrn (Negative) Ur Amphetamines Screen (Negative) U Methamphetamines Scrn (Negative) Ur MDMA Scrn (Ecstasy) (Negative) U Benzodiazepines Scrn (Negative) Urine Cocaine Screen (Negative) U Marijuana (THC) Screen (Negative) Ethyl Alcohol 173 H ( - 10) mg/dL SARS-CoV-2 (PCR) (Negative) 02/13/21 02/13/21 Range/Units 13:19 16:24 WBC (4.5-11.0) X10^3/uL RBC (4.5-5.9) X10^6/uL Hgb (13.5-17.5) g/dL Hct (41-53) % MCV (80-100) fL MCH (26-34) PG MCHC (30-36) % RDW (11.6-14.8) % Plt Count (150-400) X10^3/uL Neut % (Auto) (50-75) % Lymph % (Auto) (25-40) % [place] % (Auto) (3-14) % Eos % (Auto) (2-4) % Baso % (Auto) (0-2) % Neut # (Auto) (5904-7567) /uL Lymph # (Auto) (6365-8575) /uL [place] # (Auto) (0-900) /uL Eos # (Auto) (0-450) /uL Baso # (Auto) (0-100) /uL Sodium (137-145) mmol/L Potassium (3.4-5.1) mmol/L Chloride (98-107) mmol/L Carbon Dioxide (22-32) mmol/L BUN (9-20) mg/dL Creatinine (0.66-1.25) mg/dL Estimated GFR (>60) mL/min BUN/Creatinine Ratio (6-22) Glucose (80-110) mg/dL Calcium (8.4-10.2) mg/dL Magnesium (1.6-2.3) mg/dL Total Bilirubin (0.2-1.3) mg/dL AST (17-59) IU/L ALT (<50) IU/L Alkaline Phosphatase (38-126) U/L Total Protein (6.3-8.2) g/dL Albumin (3.5-5.0) g/dL Globulin (1.7-4.1) g/dL Albumin/Globulin Ratio (1.0-2.8) TSH (0.47-4.68) uIU/mL Free T4 (0.78-2.19) ng/dL Salicylates (<20) mg/dL U Opiates 300ng/mL cut Negative (Negative) Ur Oxycodone Screen Negative (Negative) Urine Methadone Screen Negative (Negative) Acetaminophen (10-30) ug/mL Ur Barbiturates Screen Negative (Negative) U Tricyclic Antidepress Positive H (Negative) Ur Phencyclidine Scrn Negative (Negative) Ur Amphetamines Screen Negative (Negative) U Methamphetamines Scrn Negative (Negative) Ur MDMA Scrn (Ecstasy) Negative (Negative) U Benzodiazepines Scrn Positive H (Negative) Urine Cocaine Screen Negative (Negative) U Marijuana (THC) Screen Negative (Negative) Ethyl Alcohol ( - 10) mg/dL SARS-CoV-2 (PCR) Negative (Negative) Point of Care Testing Glucose POC 92 Urine Dip Bedside Urine Glucose Negative Bedside Urine Bilirubin ++ 2 Bedside Urine Ketone +++ 80 Urine Specific [place] 1.030 Bedside Urine Occult Blood - Negative Bedside Urine pH 6.0 Bedside Urine Protein + 30 Bedside Urine Urobilinogen +/- 1mg Bedside Urine Nitrite - Negative Bedside Urine Leukocytes - Negative Esterase ECG Data Interpretation: EKG independently reviewed by ED physician at 1351 reveals normal sinus rhythm at 108 bpm with regular axis and intervals. No STEMI, ST segment changes, arrhythmia, or acute ischemic changes. MDM Narrative Medical decision making narrative: 65-year-old male PMH HTN, depression, cirrhosis, alcoholism who presents to the ER requesting alcohol detox. Patient underwent medical clearance without any significant abnormalities to his workup today. ETOH 173. Intermittently tachycardic, received Ativan per [facility] protocol. Also received IV fluids, thiamine, folate. family services worker arrange placement for patient at inpatient detox center. Patient is amenable and agreeable to admission. He will be admitted to this facility at 9a.m. tomorrow 02/14/2021. <Drew Tinoco DO - Last Filed: 02/14/21 06:57> Lab Data Labs: Lab Results 02/13/21 02/13/21 02/13/21 Range/Units 13:06 13:06 13:06 WBC 3.3 L (4.5-11.0) X10^3/uL RBC 4.27 L (4.5-5.9) X10^6/uL Hgb 13.7 (13.5-17.5) g/dL Hct 40.8 L (41-53) % MCV 95.5 (80-100) fL MCH 32.1 (26-34) PG MCHC 33.6 (30-36) % RDW 19.5 H (11.6-14.8) % Plt Count 272 (150-400) X10^3/uL Neut % (Auto) 46.2 L (50-75) % Lymph % (Auto) 41.2 H (25-40) % [place] % (Auto) 9.5 (3-14) % Eos % (Auto) 0.3 L (2-4) % Baso % (Auto) 2.8 H (0-2) % Neut # (Auto) 1500 (8725-3616) /uL Lymph # (Auto) 1400 (5812-6331) /uL [place] # (Auto) 300 (0-900) /uL Eos # (Auto) 0 (0-450) /uL Baso # (Auto) 100 (0-100) /uL Sodium 141 (137-145) mmol/L Potassium 4.4 (3.4-5.1) mmol/L Chloride 104 (98-107) mmol/L Carbon Dioxide 23 (22-32) mmol/L BUN 12 (9-20) mg/dL Creatinine 0.70 (0.66-1.25) mg/dL Estimated GFR > 60.0 (>60) mL/min BUN/Creatinine Ratio 17.1 (6-22) Glucose 91 (80-110) mg/dL Calcium 9.2 (8.4-10.2) mg/dL Magnesium 1.2 L (1.6-2.3) mg/dL Total Bilirubin 1.1 (0.2-1.3) mg/dL AST 49 (17-59) IU/L ALT 21 (<50) IU/L Alkaline Phosphatase 88 (38-126) U/L Total Protein 6.8 (6.3-8.2) g/dL Albumin 3.6 (3.5-5.0) g/dL Globulin 3.2 (1.7-4.1) g/dL Albumin/Globulin Ratio 1.1 (1.0-2.8) TSH 1.10 (0.47-4.68) uIU/mL Free T4 1.21 (0.78-2.19) ng/dL Salicylates < 1.0 (<20) mg/dL U Opiates 300ng/mL cut (Negative) Ur Oxycodone Screen (Negative) Urine Methadone Screen (Negative) Acetaminophen < 10 L (10-30) ug/mL Ur Barbiturates Screen (Negative) U Tricyclic Antidepress (Negative) Ur Phencyclidine Scrn (Negative) Ur Amphetamines Screen (Negative) U Methamphetamines Scrn (Negative) Ur MDMA Scrn (Ecstasy) (Negative) U Benzodiazepines Scrn (Negative) Urine Cocaine Screen (Negative) U Marijuana (THC) Screen (Negative) Ethyl Alcohol 173 H ( - 10) mg/dL SARS-CoV-2 (PCR) (Negative) 02/13/21 02/13/21 Range/Units 13:19 16:24 WBC (4.5-11.0) X10^3/uL RBC (4.5-5.9) X10^6/uL Hgb (13.5-17.5) g/dL Hct (41-53) % MCV (80-100) fL MCH (26-34) PG MCHC (30-36) % RDW (11.6-14.8) % Plt Count (150-400) X10^3/uL Neut % (Auto) (50-75) % Lymph % (Auto) (25-40) % [place] % (Auto) (3-14) % Eos % (Auto) (2-4) % Baso % (Auto) (0-2) % Neut # (Auto) (4468-0153) /uL Lymph # (Auto) (2505-8700) /uL [place] # (Auto) (0-900) /uL Eos # (Auto) (0-450) /uL Baso # (Auto) (0-100) /uL Sodium (137-145) mmol/L Potassium (3.4-5.1) mmol/L Chloride (98-107) mmol/L Carbon Dioxide (22-32) mmol/L BUN (9-20) mg/dL Creatinine (0.66-1.25) mg/dL Estimated GFR (>60) mL/min BUN/Creatinine Ratio (6-22) Glucose (80-110) mg/dL Calcium (8.4-10.2) mg/dL Magnesium (1.6-2.3) mg/dL Total Bilirubin (0.2-1.3) mg/dL AST (17-59) IU/L ALT (<50) IU/L Alkaline Phosphatase (38-126) U/L Total Protein (6.3-8.2) g/dL Albumin (3.5-5.0) g/dL Globulin (1.7-4.1) g/dL Albumin/Globulin Ratio (1.0-2.8) TSH (0.47-4.68) uIU/mL Free T4 (0.78-2.19) ng/dL Salicylates (<20) mg/dL U Opiates 300ng/mL cut Negative (Negative) Ur Oxycodone Screen Negative (Negative) Urine Methadone Screen Negative (Negative) Acetaminophen (10-30) ug/mL Ur Barbiturates Screen Negative (Negative) U Tricyclic Antidepress Positive H (Negative) Ur Phencyclidine Scrn Negative (Negative) Ur Amphetamines Screen Negative (Negative) U Methamphetamines Scrn Negative (Negative) Ur MDMA Scrn (Ecstasy) Negative (Negative) U Benzodiazepines Scrn Positive H (Negative) Urine Cocaine Screen Negative (Negative) U Marijuana (THC) Screen Negative (Negative) Ethyl Alcohol ( - 10) mg/dL SARS-CoV-2 (PCR) Negative (Negative) Point of Care Testing Glucose POC 92 Urine Dip Bedside Urine Glucose Negative Bedside Urine Bilirubin ++ 2 Bedside Urine Ketone +++ 80 Urine Specific [place] 1.030 Bedside Urine Occult Blood - Negative Bedside Urine pH 6.0 Bedside Urine Protein + 30 Bedside Urine Urobilinogen +/- 1mg Bedside Urine Nitrite - Negative Bedside Urine Leukocytes - Negative Esterase Discharge Plan Departure Patient Disposition: Xfer Inpatient Rehab Clinical Impression: Alcohol use disorder, severe, in early remission Instructions: Alcohol Use Disorder Activity Restrictions/Additional Instructions: Patient was informed of lab and imaging results, diagnoses, consulting physicians, and treatment plan. I have spoken with the patient in regard to admission, patient understands and agrees. Prescriptions: No Action multivitamin [Daily Multi-Vitamin] Tablet 1 tab PO QAM RF: 0 vitamin B complex Tablet 1 tab PO DAILY RF: 0 aspirin [Adult Low Dose Aspirin] 81 mg tablet,delayed release (DR/EC) 81 mg PO DAILY RF: 0 cholecalciferol (vitamin D3) 25 mcg (1,000 unit) capsule 4,000 unit PO DAILY RF: 0 omeprazole 20 mg capsule,delayed release(DR/EC) 20 mg PO QAM RF: 0 tamsulosin [Flomax] 0.4 mg capsule 0.4 mg PO QPM Qty: 0 RF: 0 trazodone 100 mg tablet 100 mg PO BEDTIME PRN (Reason: Insomnia) Qty: 30 RF: 5 testosterone cypionate 200 mg/mL oil 200 mg IM Q2W RF: 0 gabapentin 600 mg tablet 600 mg PO TID PRN (Reason: Back Pain) RF: 0 lorazepam [Ativan] 1 mg tablet See Rx Instructions .ROUTE .COMPLEX Qty: 10 RF: 0 testosterone cypionate 200 mg/mL oil 200 mg IM Q3W RF: 0 Referrals: Maria Teresa Talley PA-C [Primary Care Provider] - ED Sign-out <Rupali Tabor PA-C - Last Filed: 02/13/21 22:07> Sign Out Provider Sign Out Attestation: Attending ED physician, , was informed of lab and imaging results, diagnoses, consulting physicians, and treatment plan. He has accepted care at this time 02/13/21 at 2130. Course <Rupali Tabor PA-C - Last Filed: 02/13/21 22:07> Orders Ordered: Discontinued Medications Folic Acid (Folic Acid 1 Mg Tablet) 1 mg PO NOW ONE Stop: 02/13/21 14:50 Last Admin: 02/13/21 15:25 Dose: 1 mg Documented by: FLORIAN Sodium Chloride (Normal Saline 0.9%) 1,000 mls @ 1,000 mls/hr IV BOLUS ONE Stop: 02/13/21 15:48 Last Infusion: 02/13/21 18:34 Dose: 0 mls/hr Documented by: Admin: 02/13/21 15:24 Dose: 1,000 mls/hr Documented by: FLORIAN Lorazepam (Lorazepam 2 Mg/Ml Inj) 1 mg IV NOW ONE Stop: 02/13/21 13:19 Last Admin: 02/13/21 13:27 Dose: 1 mg Documented by: FLORIAN Lorazepam (Lorazepam 0.5 Mg Tablet) 2 mg PO NOW ONE Stop: 02/13/21 18:27 Last Admin: 02/13/21 18:30 Dose: 2 mg Documented by: FLORIAN Ondansetron HCl (Ondansetron 4 Mg/2 Ml Inj) 4 mg IV NOW ONE Stop: 02/13/21 23:51 Last Admin: 02/14/21 00:04 Dose: 4 mg Documented by: JEANE Phenobarbital (Phenobarbital 65 Mg/Ml Vial) 130 mg IV NOW ONE Stop: 02/13/21 23:51 Last Admin: 02/14/21 00:04 Dose: 130 mg Documented by: JEANE Phenobarbital (Phenobarbital 65 Mg/Ml Vial) 130 mg IV NOW ONE Stop: 02/14/21 01:15 Last Admin: 02/14/21 01:41 Dose: 130 mg Documented by: JEANE Phenobarbital (Phenobarbital 65 Mg/Ml Vial) 100 mg IV NOW ONE Stop: 02/14/21 03:23 Last Admin: 02/14/21 03:32 Dose: 100 mg Documented by: JEANE Thiamine HCl (Thiamine 100 Mg Tablet) 100 mg PO NOW ONE Stop: 02/13/21 14:50 Last Admin: 02/13/21 15:25 Dose: 100 mg Documented by: FLORIAN Vital Signs Vital signs: Vital Signs - 8 hr 02/14/21 00:12 02/14/21 01:47 02/14/21 02:39 Pulse Rate 90 92 H 88 Respiratory Rate 18 21 20 Blood Pressure 127/67 133/70 Pulse Oximetry 100 100 100 02/14/21 06:34 Pulse Rate 102 H Respiratory Rate 12 Blood Pressure 132/72 Pulse Oximetry 96 <Drew Tinoco, - Last Filed: 02/14/21 06:57> Course Course Narrative: patient received in sign out from Sharona MURRELL. I have performed an independent history and physical exam. Patient is starting to get a bit tremulous and agitated again and requests more Ativan, however I discussed with him the use of phenobarbital to which he agrees. Patient initially had improvement with phenobarb 130, however after 30-45 minutes he was re-evaluated in a bit tremulous again at which point the remaining 130 mg initial dose was given. Orders Ordered: Discontinued Medications Folic Acid (Folic Acid 1 Mg Tablet) 1 mg PO NOW ONE Stop: 02/13/21 14:50 Last Admin: 02/13/21 15:25 Dose: 1 mg Documented by: FLORIAN Sodium Chloride (Normal Saline 0.9%) 1,000 mls @ 1,000 mls/hr IV BOLUS ONE Stop: 02/13/21 15:48 Last Infusion: 02/13/21 18:34 Dose: 0 mls/hr Documented by: Admin: 02/13/21 15:24 Dose: 1,000 mls/hr Documented by: FLORIAN Lorazepam (Lorazepam 2 Mg/Ml Inj) 1 mg IV NOW ONE Stop: 02/13/21 13:19 Last Admin: 02/13/21 13:27 Dose: 1 mg Documented by: FLORIAN Lorazepam (Lorazepam 0.5 Mg Tablet) 2 mg PO NOW ONE Stop: 02/13/21 18:27 Last Admin: 02/13/21 18:30 Dose: 2 mg Documented by: FLORIAN Ondansetron HCl (Ondansetron 4 Mg/2 Ml Inj) 4 mg IV NOW ONE Stop: 02/13/21 23:51 Last Admin: 02/14/21 00:04 Dose: 4 mg Documented by: JEANE Phenobarbital (Phenobarbital 65 Mg/Ml Vial) 130 mg IV NOW ONE Stop: 02/13/21 23:51 Last Admin: 02/14/21 00:04 Dose: 130 mg Documented by: JEANE Phenobarbital (Phenobarbital 65 Mg/Ml Vial) 130 mg IV NOW ONE Stop: 02/14/21 01:15 Last Admin: 02/14/21 01:41 Dose: 130 mg Documented by: JEANE Phenobarbital (Phenobarbital 65 Mg/Ml Vial) 100 mg IV NOW ONE Stop: 02/14/21 03:23 Last Admin: 02/14/21 03:32 Dose: 100 mg Documented by: JEANE Thiamine HCl (Thiamine 100 Mg Tablet) 100 mg PO NOW ONE Stop: 02/13/21 14:50 Last Admin: 02/13/21 15:25 Dose: 100 mg Documented by: FLORIAN Vital Signs Vital signs: Vital Signs - 8 hr 02/14/21 00:12 02/14/21 01:47 02/14/21 02:39 Pulse Rate 90 92 H 88 Respiratory Rate 18 21 20 Blood Pressure 127/67 133/70 Pulse Oximetry 100 100 100 02/14/21 06:34 Pulse Rate 102 H Respiratory Rate 12 Blood Pressure 132/72 Pulse Oximetry 96
[2021-02-13] MEDS: SODIUM CHLORIDE 0.9% 1,000 ML 1000 ML IV (15:24)
[2021-02-13] MEDS: FOLIC ACID 1 MG TABLET PO (15:25)
[2021-02-13] MEDS: THIAMINE 100 MG TABLET PO (15:25)
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
[2021-02-13 18:09] VITALS: BP 129/69; PULSE 106; TEMP 37.1; O2SAT 96
[2021-02-13] MEDS: LORazepam 0.5 MG TABLET 2 MG PO (18:30)
--- NOTE | 2021-02-13 18:36 | CM.SWNOTE ---
Addendum entered by Mary Jo Lee 02/13/21 20:09: BOOMSWING OPERATOR Note BOOMSWING OPERATOR assists patient with [facility] eligibility paperwork in order to seek out detox, healthcare and inpatient treatment from [place] [facility]. Patient endorses he was active in the [employer] from [id number]. YADI Rodriguez Addendum entered by Mary Jo Lee 02/13/21 19:54: BOOMSWING OPERATOR Note Patient passed ambulation trial with walker. BOOMSWING OPERATOR reviews this with Maria D AKINS with [facility] facilities and patient is accepted at [facility] for detox. BOOMSWING OPERATOR calls [facility] ([address], [facility], Ph. # [phone]). It is reported that patient is accepted due to staffing shortage can arrive at facility at 800 tomorrow 02/14/21. BOOMSWING OPERATOR reviews the above with ED providers and it is determined that patient is to stay at this ED until detox bed date and time to maintain medical clearance. Patient endorses agreement and understanding and states that his friend Michael can pick patient up upon d/c to take him to detox. Plan: Patient to d/c to [facility] via transportation from friend. YADI Rodriguez Original Note: BOOMSWING OPERATOR Note BOOMSWING OPERATOR calls [facility] with patient. Patient endorses that he did an intake screening earlier in the day and was informed to come to ED for medical clearance first. [facility] informs patient and BOOMSWING OPERATOR that patient is recommended to contact [facility] or [facility] for detox per recommendation of medical lab technologist. BOOMSWING OPERATOR calls [facility], it is reported that patient uses CPAP machine and [facility] does not have outlets in the room and recommended that patient and BOOMSWING OPERATOR contact [facility]. BOOMSWING OPERATOR calls [facility] with patient. Patient is screened for intake over the phone. Patient endorses he has not been to [facility] before. BOOMSWING OPERATOR is informed to contact [facility] in the next 10 minutes to review patient's acceptance. BOOMSWING OPERATOR speaks with nurse Jackie who states that she is in contact with [facility] and it is recommended that patient go to [facility] because it is closer to patient. BOOMSWING OPERATOR endorses that [facility] and [facility] recommended [facility]. BOOMSWING OPERATOR receives calls from Maria D Nurse Practitioner for all Detox facilities (Ph. # [phone]). It is reported that patient is a fall risk and is not compliance with CPAP machine. It is reported that patient just d/c'd from [facility] on 02/01 and Maria D asks if patient really needs detox. YADI endorses that patient has not been able to get into inpatient and when he leaves detox and returns home he relapses and then seeks out detox and inpatient treatment again. Maria D endorses that [facility] is quarantining for 14 days. Maria D endorses that [facility] will take patient if he passes an ambulation trial and staff will monitor patient's oxygen without his CPAP as patient reports he only uses CPAP 1-2 times a week. Patient presents as anxious and concerned that he will not get into detox facility. Plan: CNAs to assist in ambulation trial, BOOMSWING OPERATOR to f/u with plan of care pending patient's ability to ambulate and acceptance to detox. YADI Rodriguez
[2021-02-13 18:48] LABS: UR Morphine/Opiate cutoff 300 Negative (Negative); Ur Creatinine Normal (Normal); Ur Specific Gravity Normal (Normal); Urine Amphetamines Negative (Negative); Urine Barbiturates Negative (Negative); Urine Benzodiazepines Positive (Negative); Urine Cocaine Negative (Negative); Urine MDMA Negative (Negative); Urine Methadone Negative (Negative); Urine Methamphetamines Negative (Negative); Urine Oxycodone Negative (Negative); Urine Phencyclidine Negative (Negative); Urine Tetrahydrocannabinol Negative (Negative); Urine Tricyclic Antidepressant Positive (Negative); Urine pH Normal (Normal)
[2021-02-13 21:58] VITALS: BP 131/61; PULSE 98; RESP 21; O2SAT 96
[2021-02-14] MEDS: ONDANSETRON 4 MG/2 ML INJ IV (00:04)
[2021-02-14] MEDS: PHENobarbital 65 MG/ML VIAL 130 MG IV ×2 (00:04→01:41)
[2021-02-14 00:12] VITALS: BP 127/67; PULSE 90; RESP 18; O2SAT 100
[2021-02-14 01:47] VITALS: BP 133/70; PULSE 92; RESP 21; O2SAT 100
[2021-02-14 02:39] VITALS: PULSE 88; RESP 20; O2SAT 100
[2021-02-14] MEDS: PHENobarbital 65 MG/ML VIAL 100 MG IV (03:32)
[2021-02-14 06:34] VITALS: BP 132/72; PULSE 102; RESP 12; O2SAT 96
--- NOTE | 2021-02-14 06:35 | PC.NURSE ---
Provided tooth paste and tooth brush for Pt to brush teeth by self
== END 2021-02-14 07:11 ==
PROVIDERS: Emergency Medicine; Emergency Provider Emergency Medicine; PCP Student in an Organized Health Care Education/Training Program
DX: F10.21 Alcohol dependence, in remission (principal); Y90.6 Blood alcohol level of 120-199 mg/100 ml; Z20.822 Contact with and (suspected) exposure to COVID-19
CPT/HCPCS: 36415; 80053; 80305; 80320; 80329; 81003; 82962; 83735; 84439; 84443; 85025; 87635; 93005; 96361; 96374; 96375; 96376; 99285; C9803; G0480; J2060; J2405; J2560

== ENCOUNTER 2021-03-15 12:35 | Emergency (ER) | payer MEDICARE, OTHER, SELFPAY ==
[2021-03-15] VITALS (10 sets, daily range): BP systolic 119–157; BP diastolic 69–91; PULSE 78–106; RESP 11–21; TEMP 36.9; O2SAT 85–99
[2021-03-15 13:06] LABS: Add Manual Diff / Slide Review NO; Basophils Absolute Auto 0 /uL (0-100); Basophils Percent Auto 1.1 % (0-2); Eosinophils Absolute Auto 0 /uL (0-450); Eosinophils Percent Auto 0.6 % (2-4); Hematocrit 42.7 % (41-53); Hemoglobin 14.2 g/dL (13.5-17.5); Lymphocytes Absolute Auto 2100 /uL (1100-4500); Lymphocytes Percent Auto 51.4 % (25-40); Mean Corpuscular HGB Conc 33.3 % (30-36); Mean Corpuscular Hemoglobin 31.2 PG (26-34); Mean Corpuscular Volume 93.7 fL (80-100); Monocytes Absolute Auto 400 /uL (0-900); Monocytes Percent Auto 8.9 % (3-14); Neutrophils Absolute Auto 1500 /uL (1500-7000); Platelet Count 109 X10^3/uL (150-400); Red Blood Cell Count 4.56 X10^6/uL (4.5-5.9)
[2021-03-15 13:59] LABS: Acetaminophen < 10 ug/mL (10-30); Alanine Aminotransferase 91 IU/L (<50); Albumin 3.8 g/dL (3.5-5.0); Albumin Globulin Ratio 1.1 (1.0-2.8); Alkaline Phosphatase 120 U/L (38-126); Aspartate Aminotransferase 173 IU/L (17-59); BUN Creatinine Ratio 23.2 (6-22); Bilirubin Total 1.7 mg/dL (0.2-1.3); Blood Urea Nitrogen 16 mg/dL (9-20); Calcium 9.3 mg/dL (8.4-10.2); Carbon Dioxide 30 mmol/L (22-32); Chloride 101 mmol/L (98-107); Estimated Glomerular Filt Rate > 60.0 mL/min (>60); Globulin 3.4 g/dL (1.7-4.1); Glucose 92 mg/dL (80-110); HEMOLYSIS < 15 (0-50); Potassium 5.1 mmol/L (3.4-5.1); Salicylate < 1.0 mg/dL (<20); Sodium 143 mmol/L (137-145); Total Protein 7.2 g/dL (6.3-8.2)
--- NOTE | 2021-03-15 14:05 | ED.ALCOHOL ---
HPI - Alcohol <MEGHA CamposP - Last Filed: 03/15/21 18:48> General Chief Complaint: Toxicology Problem Stated Complaint: Alcohol relapse Time Seen by Provider: 03/15/21 13:13 Source: patient and EMS Mode of arrival: EMS Limitations: no limitations History of Present Illness HPI narrative: 65-year-old male PMH HTN, depression, cirrhosis, alcoholism who presents to the ER requesting alcohol detox.? States he drinks a 750 mL 5th of vodka daily.? Last drink was early this morning.? Denies any shakiness or withdrawal seizures, vomiting, abdominal pain or any other additional symptoms.? He has history prior alcohol detox inpatient hospitalizations.? Denies SI, HI, or audiovisual hallucinations. He states that he wishes to go to detox. He denies any symptoms of withdrawal including palpitations, racing heart rate, tremors, feeling ill, any recent illness, or fever. He reports that he has no medical complaints other than needing medical detox as he is tired of relapsing. He reports that he is unable to do this on his own and is hoping that the hospital can not connect him and help him get admitted to detox. He reports that he cannot afford [employer] and he needs to go somewhere that accepts his VA or Medicare insurance. Related Data Home Medications Medication Instructions Recorded Confirmed tamsulosin 0.4 mg capsule (Flomax) 0.4 mg PO QPM #0 cap 06/23/19 01/03/21 testosterone cypionate 200 mg/mL 200 mg IM Q3W ml 06/23/19 01/03/21 intramuscular oil aspirin 81 mg tablet,delayed 81 mg PO DAILY 10/11/19 01/03/21 release (Adult Low Dose Aspirin) cholecalciferol (vitamin D3) 25 4,000 unit PO DAILY cap 10/11/19 01/03/21 mcg (1,000 unit) capsule multivitamin (Daily Multi-Vitamin) 1 tab PO QAM 10/11/19 01/03/21 omeprazole 20 mg capsule,delayed 20 mg PO QAM 10/11/19 01/03/21 release vitamin B complex 1 tab PO DAILY 10/11/19 01/03/21 gabapentin 600 mg tablet 600 mg PO TID PRN 01/03/21 01/03/21 testosterone cypionate 200 mg/mL 200 mg IM Q2W 01/03/21 01/03/21 intramuscular oil Previous Rx's Medication Instructions Recorded lorazepam 1 mg tablet (Ativan) See Rx Instructions .ROUTE 01/03/21 .COMPLEX #10 tab trazodone 100 mg tablet 100 mg PO BEDTIME PRN #30 tab 01/11/21 Allergies Allergy/AdvReac Type Severity Reaction Status Date / Time hydrochlorothiazide Allergy Severe Anaphylaxis Verified 01/25/21 17:00 [HYDROCHLOROTHIAZIDE] lisinopril [LISINOPRIL] Allergy Severe Anaphylaxis Verified 01/25/21 17:00 Review of Systems <BONG Campos - Last Filed: 03/15/21 18:48> Review of Systems Narrative: General: denies fever, chills Head/Neck: denies headache, neck pain Eyes: denies visual changes, eye pain Cardio: denies chest pain, palpitations Respiratory: denies shortness of breath, cough GI: denies abdominal pain, nausea, vomiting, or diarrhea : denies dysuria, hematuria MSK: denies joint pain, muscle weakness Skin: denies rash, itching Neuro: denies numbness, tingling Patient History <BONG Campos - Last Filed: 03/15/21 18:48> Medical History Alcohol use disorder, severe, in early remission Alcoholism Cirrhosis Hypertension Major depression Surgical History H/O rhinoplasty History of fasciotomy 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 ) substance use type: does not use Smoking Status: Former smoker alcohol intake frequency: 3 or more drinks per day Alcohol type: hard liquor Substance Use Type: does not use Exam <BONG Campos - Last Filed: 03/15/21 18:48> Narrative Exam Narrative: Independently reviewed vitals signs and nursing notes. General: Awake, alert, nontoxic, no cardiorespiratory distress Head/Neck: Atraumatic, neck full range of motion Eyes: EOMI, conjunctiva normal Nose: nares patent, no rhinorrhea Mouth/Throat: moist mucus membranes, posterior pharynx normal, no oral lesions Cardio: Regular rate and rhythm, no peripheral edema Respiratory: respirations unlabored without wheezing, stridor, or rales. No retractions. GI: Abdomen soft, nontender MSK: Moves all extremities, neurovascularly intact Skin: Normal capillary refill, no rash Neuro: Normal speech and cognition, normal gait Initial Vital Signs Initial Vital Signs: Vital Signs Temperature 98.4 F 03/15/21 12:38 Pulse Rate 78 03/15/21 12:38 Respiratory Rate 16 03/15/21 12:38 Blood Pressure 151/73 H 03/15/21 12:38 Pulse Oximetry 94 03/15/21 12:38 <Elena Jason DO - Last Filed: 03/16/21 08:21> Initial Vital Signs Initial Vital Signs: Vital Signs Temperature 98.4 F 03/15/21 12:38 Pulse Rate 78 03/15/21 12:38 Respiratory Rate 16 03/15/21 12:38 Blood Pressure 151/73 H 03/15/21 12:38 Pulse Oximetry 94 03/15/21 12:38 Course <BONG Campos - Last Filed: 03/15/21 18:48> Course Course Narrative: Called [facility] for possible detox bed, in the report that they may have bed this evening. Patient denies being able to afford to go there. He requests that we call places that accept Medicare for VA benefits. Louise alicea is making a call down of all facilities at this time. There are no beds at [facility] at this time. Additional Information: report clerk has called approximately 20 facilities on the [facility] region with no luck for open bed that takes his Medicare for VA insurance. Patient is amenable to discharge home with strict ED precautions, and is instructed to phone these detox facilities tomorrow for acceptance. Orders Ordered: Discontinued Medications Folic Acid (Folic Acid 1 Mg Tablet) 1 mg PO NOW ONE Stop: 03/15/21 16:46 Last Admin: 03/15/21 17:21 Dose: 1 mg Documented by: JULISSA Thiamine HCl 100 mg/ Dextrose 51 mls @ 204 mls/hr IV NOW ONE Stop: 03/15/21 14:31 Last Infusion: 03/15/21 15:22 Dose: 0 mls/hr Documented by: Admin: 03/15/21 14:59 Dose: 204 mls/hr Documented by: FLORIAN Sodium Chloride (Normal Saline 0.9%) 1,000 mls @ 500 mls/hr IV BOLUS ONE Stop: 03/15/21 16:29 Last Infusion: 03/15/21 17:48 Dose: 0 mls/hr Documented by: Admin: 03/15/21 14:46 Dose: 500 mls/hr Documented by: FLORIAN Lorazepam (Lorazepam 2 Mg/Ml Inj) 1 mg IV NOW ONE Stop: 03/15/21 17:33 Last Admin: 03/15/21 17:49 Dose: Not Given Documented by: JULISSA Lorazepam (Lorazepam 0.5 Mg Tablet) 2 mg PO NOW ONE Stop: 03/15/21 17:49 Last Admin: 03/15/21 17:51 Dose: 2 mg Documented by: JULISSA Phenobarbital (Phenobarbital 65 Mg/Ml Vial) 130 mg IV NOW ONE Stop: 03/15/21 15:52 Last Admin: 03/15/21 16:18 Dose: 130 mg Documented by: JULISSA Phenobarbital (Phenobarbital 65 Mg/Ml Vial) 130 mg IV NOW ONE Stop: 03/15/21 17:33 Last Admin: 03/15/21 17:49 Dose: Not Given Documented by: JULISSA Reevaluation(s) Reevaluation #1: At 4:30 p.m. patient re-evaluated again after phenobarb with less tremors. He is requiring supplemental O2 intermittently to keep his O2 sats above 90%. He denies any audiovisual hallucinations, current plan we are calling each detox facility in the [facility] for open bed availability. Reevaluation #2: At 5:30 p.m. patient was re-evaluated and was having tremors again, he is tolerating room air with his O2 sats above 90% now. He denies any audiovisual hallucinations, there are no open beds for a male patient had any inpatient intensive detox facility that we can find at this time. Patient is informed of this and reports that he is amenable to discharge home and reports that he will follow-up for possible admission to detox tomorrow with the facilities that might have an open bed then. Vital Signs Vital signs: Vital Signs - 8 hr 03/15/21 12:38 03/15/21 13:45 03/15/21 14:00 Temperature 98.4 F Pulse Rate 78 97 H 82 Respiratory Rate 16 Blood Pressure 151/73 H 137/77 Pulse Oximetry 94 92 90 L 03/15/21 14:30 03/15/21 15:00 03/15/21 15:30 Temperature Pulse Rate 84 94 H Respiratory Rate Blood Pressure 127/75 144/82 H 145/86 H Pulse Oximetry 97 96 03/15/21 16:00 03/15/21 16:30 03/15/21 17:00 Temperature Pulse Rate 88 96 H 90 Respiratory Rate 11 L 16 15 Blood Pressure 131/71 145/84 H 119/69 Pulse Oximetry 85 L 99 95 03/15/21 17:30 Temperature Pulse Rate 106 H Respiratory Rate 21 Blood Pressure 157/91 H Pulse Oximetry 94 <Elena Jason DO - Last Filed: 03/16/21 08:21> Orders Ordered: Discontinued Medications Folic Acid (Folic Acid 1 Mg Tablet) 1 mg PO NOW ONE Stop: 03/15/21 16:46 Last Admin: 03/15/21 17:21 Dose: 1 mg Documented by: JULISSA Thiamine HCl 100 mg/ Dextrose 51 mls @ 204 mls/hr IV NOW ONE Stop: 03/15/21 14:31 Last Infusion: 03/15/21 15:22 Dose: 0 mls/hr Documented by: Admin: 03/15/21 14:59 Dose: 204 mls/hr Documented by: FLORIAN Sodium Chloride (Normal Saline 0.9%) 1,000 mls @ 500 mls/hr IV BOLUS ONE Stop: 03/15/21 16:29 Last Infusion: 03/15/21 17:48 Dose: 0 mls/hr Documented by: Admin: 03/15/21 14:46 Dose: 500 mls/hr Documented by: FLROIAN Lorazepam (Lorazepam 2 Mg/Ml Inj) 1 mg IV NOW ONE Stop: 03/15/21 17:33 Last Admin: 03/15/21 17:49 Dose: Not Given Documented by: JULISSA Lorazepam (Lorazepam 0.5 Mg Tablet) 2 mg PO NOW ONE Stop: 03/15/21 17:49 Last Admin: 03/15/21 17:51 Dose: 2 mg Documented by: JULISSA Phenobarbital (Phenobarbital 65 Mg/Ml Vial) 130 mg IV NOW ONE Stop: 03/15/21 15:52 Last Admin: 03/15/21 16:18 Dose: 130 mg Documented by: JULISSA Phenobarbital (Phenobarbital 65 Mg/Ml Vial) 130 mg IV NOW ONE Stop: 03/15/21 17:33 Last Admin: 03/15/21 17:49 Dose: Not Given Documented by: JULISSA Vital Signs Vital signs: Vital Signs - 8 hr 03/15/21 12:38 03/15/21 13:45 03/15/21 14:00 Temperature 98.4 F Pulse Rate 78 97 H 82 Respiratory Rate 16 Blood Pressure 151/73 H 137/77 Pulse Oximetry 94 92 90 L 03/15/21 14:30 03/15/21 15:00 03/15/21 15:30 Temperature Pulse Rate 84 94 H Respiratory Rate Blood Pressure 127/75 144/82 H 145/86 H Pulse Oximetry 97 96 03/15/21 16:00 03/15/21 16:30 03/15/21 17:00 Temperature Pulse Rate 88 96 H 90 Respiratory Rate 11 L 16 15 Blood Pressure 131/71 145/84 H 119/69 Pulse Oximetry 85 L 99 95 03/15/21 17:30 Temperature Pulse Rate 106 H Respiratory Rate 21 Blood Pressure 157/91 H Pulse Oximetry 94 MDM - Alcohol <BONG Campos - Last Filed: 03/15/21 18:48> Lab Data Result diagrams: 03/15/21 12:55 03/15/21 13:40 Labs: Lab Results 03/15/21 03/15/21 03/15/21 Range/Units 12:55 12:58 13:40 WBC 4.0 L (4.5-11.0) X10^3/uL RBC 4.56 (4.5-5.9) X10^6/uL Hgb 14.2 (13.5-17.5) g/dL Hct 42.7 (41-53) % MCV 93.7 (80-100) fL MCH 31.2 (26-34) PG MCHC 33.3 (30-36) % RDW 19.0 H (11.6-14.8) % Plt Count 109 L (150-400) X10^3/uL Neut % (Auto) 38.0 L (50-75) % Lymph % (Auto) 51.4 H (25-40) % [place] % (Auto) 8.9 (3-14) % Eos % (Auto) 0.6 L (2-4) % Baso % (Auto) 1.1 (0-2) % Neut # (Auto) 1500 (0016-6618) /uL Lymph # (Auto) 2100 (1996-1330) /uL [place] # (Auto) 400 (0-900) /uL Eos # (Auto) 0 (0-450) /uL Baso # (Auto) 0 (0-100) /uL Sodium 143 (137-145) mmol/L Potassium 5.1 (3.4-5.1) mmol/L Chloride 101 (98-107) mmol/L Carbon Dioxide 30 (22-32) mmol/L BUN 16 (9-20) mg/dL Creatinine 0.69 (0.66-1.25) mg/dL Estimated GFR > 60.0 (>60) mL/min BUN/Creatinine Ratio 23.2 H (6-22) Glucose 92 (80-110) mg/dL Calcium 9.3 (8.4-10.2) mg/dL Total Bilirubin 1.7 H (0.2-1.3) mg/dL AST 173 H (17-59) IU/L ALT 91 H (<50) IU/L Alkaline Phosphatase 120 (38-126) U/L Total Protein 7.2 (6.3-8.2) g/dL Albumin 3.8 (3.5-5.0) g/dL Globulin 3.4 (1.7-4.1) g/dL Albumin/Globulin Ratio 1.1 (1.0-2.8) Folate (2.76-20.0) ng/mL TSH (0.47-4.68) uIU/mL Free T4 (0.78-2.19) ng/dL Urine RBC (0-5/HPF) Urine WBC (0-5/HPF) Ur Squamous Epith Cells (0-5/HPF) Urine Bacteria (None) Ur Culture Indicated? Salicylates < 1.0 (<20) mg/dL U Opiates 300ng/mL cut (Negative) Ur Oxycodone Screen (Negative) Urine Methadone Screen (Negative) Acetaminophen < 10 L (10-30) ug/mL Ur Barbiturates Screen (Negative) U Tricyclic Antidepress (Negative) Ur Phencyclidine Scrn (Negative) Ur Amphetamines Screen (Negative) U Methamphetamines Scrn (Negative) Ur MDMA Scrn (Ecstasy) (Negative) U Benzodiazepines Scrn (Negative) Urine Cocaine Screen (Negative) U Marijuana (THC) Screen (Negative) Ethyl Alcohol 368 H ( - 10) mg/dL SARS-CoV-2 (PCR) Negative (Negative) 03/15/21 03/15/21 03/15/21 Range/Units 13:40 15:40 15:40 WBC (4.5-11.0) X10^3/uL RBC (4.5-5.9) X10^6/uL Hgb (13.5-17.5) g/dL Hct (41-53) % MCV (80-100) fL MCH (26-34) PG MCHC (30-36) % RDW (11.6-14.8) % Plt Count (150-400) X10^3/uL Neut % (Auto) (50-75) % Lymph % (Auto) (25-40) % [place] % (Auto) (3-14) % Eos % (Auto) (2-4) % Baso % (Auto) (0-2) % Neut # (Auto) (7905-3376) /uL Lymph # (Auto) (8001-5542) /uL [place] # (Auto) (0-900) /uL Eos # (Auto) (0-450) /uL Baso # (Auto) (0-100) /uL Sodium (137-145) mmol/L Potassium (3.4-5.1) mmol/L Chloride (98-107) mmol/L Carbon Dioxide (22-32) mmol/L BUN (9-20) mg/dL Creatinine (0.66-1.25) mg/dL Estimated GFR (>60) mL/min BUN/Creatinine Ratio (6-22) Glucose (80-110) mg/dL Calcium (8.4-10.2) mg/dL Total Bilirubin (0.2-1.3) mg/dL AST (17-59) IU/L ALT (<50) IU/L Alkaline Phosphatase (38-126) U/L Total Protein (6.3-8.2) g/dL Albumin (3.5-5.0) g/dL Globulin (1.7-4.1) g/dL Albumin/Globulin Ratio (1.0-2.8) Folate (2.76-20.0) ng/mL TSH 1.43 (0.47-4.68) uIU/mL Free T4 1.01 (0.78-2.19) ng/dL Urine RBC 0-1/hpf (0-5/HPF) Urine WBC 1-5/hpf (0-5/HPF) Ur Squamous Epith Cells 0-1 /hpf (0-5/HPF) Urine Bacteria Occasional (0-1) (None) Ur Culture Indicated? Specimen cultured Salicylates (<20) mg/dL U Opiates 300ng/mL cut Negative (Negative) Ur Oxycodone Screen Negative (Negative) Urine Methadone Screen Negative (Negative) Acetaminophen (10-30) ug/mL Ur Barbiturates Screen Negative (Negative) U Tricyclic Antidepress Negative (Negative) Ur Phencyclidine Scrn Negative (Negative) Ur Amphetamines Screen Negative (Negative) U Methamphetamines Scrn Negative (Negative) Ur MDMA Scrn (Ecstasy) Negative (Negative) U Benzodiazepines Scrn Negative (Negative) Urine Cocaine Screen Negative (Negative) U Marijuana (THC) Screen Negative (Negative) Ethyl Alcohol ( - 10) mg/dL SARS-CoV-2 (PCR) (Negative) 03/15/21 Range/Units 16:43 WBC (4.5-11.0) X10^3/uL RBC (4.5-5.9) X10^6/uL Hgb (13.5-17.5) g/dL Hct (41-53) % MCV (80-100) fL MCH (26-34) PG MCHC (30-36) % RDW (11.6-14.8) % Plt Count (150-400) X10^3/uL Neut % (Auto) (50-75) % Lymph % (Auto) (25-40) % [place] % (Auto) (3-14) % Eos % (Auto) (2-4) % Baso % (Auto) (0-2) % Neut # (Auto) (9145-6431) /uL Lymph # (Auto) (6222-1219) /uL [place] # (Auto) (0-900) /uL Eos # (Auto) (0-450) /uL Baso # (Auto) (0-100) /uL Sodium (137-145) mmol/L Potassium (3.4-5.1) mmol/L Chloride (98-107) mmol/L Carbon Dioxide (22-32) mmol/L BUN (9-20) mg/dL Creatinine (0.66-1.25) mg/dL Estimated GFR (>60) mL/min BUN/Creatinine Ratio (6-22) Glucose (80-110) mg/dL Calcium (8.4-10.2) mg/dL Total Bilirubin (0.2-1.3) mg/dL AST (17-59) IU/L ALT (<50) IU/L Alkaline Phosphatase (38-126) U/L Total Protein (6.3-8.2) g/dL Albumin (3.5-5.0) g/dL Globulin (1.7-4.1) g/dL Albumin/Globulin Ratio (1.0-2.8) Folate > 20.0 H (2.76-20.0) ng/mL TSH (0.47-4.68) uIU/mL Free T4 (0.78-2.19) ng/dL Urine RBC (0-5/HPF) Urine WBC (0-5/HPF) Ur Squamous Epith Cells (0-5/HPF) Urine Bacteria (None) Ur Culture Indicated? Salicylates (<20) mg/dL U Opiates 300ng/mL cut (Negative) Ur Oxycodone Screen (Negative) Urine Methadone Screen (Negative) Acetaminophen (10-30) ug/mL Ur Barbiturates Screen (Negative) U Tricyclic Antidepress (Negative) Ur Phencyclidine Scrn (Negative) Ur Amphetamines Screen (Negative) U Methamphetamines Scrn (Negative) Ur MDMA Scrn (Ecstasy) (Negative) U Benzodiazepines Scrn (Negative) Urine Cocaine Screen (Negative) U Marijuana (THC) Screen (Negative) Ethyl Alcohol ( - 10) mg/dL SARS-CoV-2 (PCR) (Negative) Urine Dip Bedside Urine Glucose Negative Bedside Urine Bilirubin - Negative Bedside Urine Ketone + 15 Urine Specific [place] 1.015 Bedside Urine Occult Blood +/- Bedside Urine pH 6.0 Bedside Urine Protein + 30 Bedside Urine Urobilinogen +/- 1mg Bedside Urine Nitrite - Negative Bedside Urine Leukocytes - Negative Esterase MDM Narrative Medical decision making narrative: 65-year-old male PMH HTN, depression, cirrhosis, alcoholism who presents to the ER requesting alcohol detox.? Patient underwent medical clearance without any significant abnormalities to his workup today.? ETOH is 368.? Intermittently tremulous, received phenobarb and ativan per [facility] protocol.? Also received IV fluids, thiamine, folic acid.? 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 Patient is amenable and agreeable to discharge home if there are no beds.?Zacarias has a known history of alcohol abuse and has been to detox multiple times.? He does not have any other acute concerns or complaints at this time.? We called around to different detox facilities and they are all full at this time.? Because of this, he is electing to go home and follow up with the detox facilities tomorrow.? We confirmed that there may be available beds tomorrow and gave him the appropriate contact information.? He is going to stay at home and call [employer] for a ride.? Return precautions discussed with the patient.? Patient verbalizes understanding and agrees to plan and has no further concerns at this time. <Elena Jason, - Last Filed: 03/16/21 08:21> Lab Data Labs: Lab Results 03/15/21 03/15/21 03/15/21 Range/Units 12:55 12:58 13:40 WBC 4.0 L (4.5-11.0) X10^3/uL RBC 4.56 (4.5-5.9) X10^6/uL Hgb 14.2 (13.5-17.5) g/dL Hct 42.7 (41-53) % MCV 93.7 (80-100) fL MCH 31.2 (26-34) PG MCHC 33.3 (30-36) % RDW 19.0 H (11.6-14.8) % Plt Count 109 L (150-400) X10^3/uL Neut % (Auto) 38.0 L (50-75) % Lymph % (Auto) 51.4 H (25-40) % [place] % (Auto) 8.9 (3-14) % Eos % (Auto) 0.6 L (2-4) % Baso % (Auto) 1.1 (0-2) % Neut # (Auto) 1500 (1392-1734) /uL Lymph # (Auto) 2100 (7248-7372) /uL [place] # (Auto) 400 (0-900) /uL Eos # (Auto) 0 (0-450) /uL Baso # (Auto) 0 (0-100) /uL Sodium 143 (137-145) mmol/L Potassium 5.1 (3.4-5.1) mmol/L Chloride 101 (98-107) mmol/L Carbon Dioxide 30 (22-32) mmol/L BUN 16 (9-20) mg/dL Creatinine 0.69 (0.66-1.25) mg/dL Estimated GFR > 60.0 (>60) mL/min BUN/Creatinine Ratio 23.2 H (6-22) Glucose 92 (80-110) mg/dL Calcium 9.3 (8.4-10.2) mg/dL Total Bilirubin 1.7 H (0.2-1.3) mg/dL AST 173 H (17-59) IU/L ALT 91 H (<50) IU/L Alkaline Phosphatase 120 (38-126) U/L Total Protein 7.2 (6.3-8.2) g/dL Albumin 3.8 (3.5-5.0) g/dL Globulin 3.4 (1.7-4.1) g/dL Albumin/Globulin Ratio 1.1 (1.0-2.8) Folate (2.76-20.0) ng/mL TSH (0.47-4.68) uIU/mL Free T4 (0.78-2.19) ng/dL Urine RBC (0-5/HPF) Urine WBC (0-5/HPF) Ur Squamous Epith Cells (0-5/HPF) Urine Bacteria (None) Ur Culture Indicated? Salicylates < 1.0 (<20) mg/dL U Opiates 300ng/mL cut (Negative) Ur Oxycodone Screen (Negative) Urine Methadone Screen (Negative) Acetaminophen < 10 L (10-30) ug/mL Ur Barbiturates Screen (Negative) U Tricyclic Antidepress (Negative) Ur Phencyclidine Scrn (Negative) Ur Amphetamines Screen (Negative) U Methamphetamines Scrn (Negative) Ur MDMA Scrn (Ecstasy) (Negative) U Benzodiazepines Scrn (Negative) Urine Cocaine Screen (Negative) U Marijuana (THC) Screen (Negative) Ethyl Alcohol 368 H ( - 10) mg/dL SARS-CoV-2 (PCR) Negative (Negative) 03/15/21 03/15/21 03/15/21 Range/Units 13:40 15:40 15:40 WBC (4.5-11.0) X10^3/uL RBC (4.5-5.9) X10^6/uL Hgb (13.5-17.5) g/dL Hct (41-53) % MCV (80-100) fL MCH (26-34) PG MCHC (30-36) % RDW (11.6-14.8) % Plt Count (150-400) X10^3/uL Neut % (Auto) (50-75) % Lymph % (Auto) (25-40) % [place] % (Auto) (3-14) % Eos % (Auto) (2-4) % Baso % (Auto) (0-2) % Neut # (Auto) (9932-0348) /uL Lymph # (Auto) (3299-0431) /uL [place] # (Auto) (0-900) /uL Eos # (Auto) (0-450) /uL Baso # (Auto) (0-100) /uL Sodium (137-145) mmol/L Potassium (3.4-5.1) mmol/L Chloride (98-107) mmol/L Carbon Dioxide (22-32) mmol/L BUN (9-20) mg/dL Creatinine (0.66-1.25) mg/dL Estimated GFR (>60) mL/min BUN/Creatinine Ratio (6-22) Glucose (80-110) mg/dL Calcium (8.4-10.2) mg/dL Total Bilirubin (0.2-1.3) mg/dL AST (17-59) IU/L ALT (<50) IU/L Alkaline Phosphatase (38-126) U/L Total Protein (6.3-8.2) g/dL Albumin (3.5-5.0) g/dL Globulin (1.7-4.1) g/dL Albumin/Globulin Ratio (1.0-2.8) Folate (2.76-20.0) ng/mL TSH 1.43 (0.47-4.68) uIU/mL Free T4 1.01 (0.78-2.19) ng/dL Urine RBC 0-1/hpf (0-5/HPF) Urine WBC 1-5/hpf (0-5/HPF) Ur Squamous Epith Cells 0-1 /hpf (0-5/HPF) Urine Bacteria Occasional (0-1) (None) Ur Culture Indicated? Specimen cultured Salicylates (<20) mg/dL U Opiates 300ng/mL cut Negative (Negative) Ur Oxycodone Screen Negative (Negative) Urine Methadone Screen Negative (Negative) Acetaminophen (10-30) ug/mL Ur Barbiturates Screen Negative (Negative) U Tricyclic Antidepress Negative (Negative) Ur Phencyclidine Scrn Negative (Negative) Ur Amphetamines Screen Negative (Negative) U Methamphetamines Scrn Negative (Negative) Ur MDMA Scrn (Ecstasy) Negative (Negative) U Benzodiazepines Scrn Negative (Negative) Urine Cocaine Screen Negative (Negative) U Marijuana (THC) Screen Negative (Negative) Ethyl Alcohol ( - 10) mg/dL SARS-CoV-2 (PCR) (Negative) 03/15/21 Range/Units 16:43 WBC (4.5-11.0) X10^3/uL RBC (4.5-5.9) X10^6/uL Hgb (13.5-17.5) g/dL Hct (41-53) % MCV (80-100) fL MCH (26-34) PG MCHC (30-36) % RDW (11.6-14.8) % Plt Count (150-400) X10^3/uL Neut % (Auto) (50-75) % Lymph % (Auto) (25-40) % [place] % (Auto) (3-14) % Eos % (Auto) (2-4) % Baso % (Auto) (0-2) % Neut # (Auto) (0055-8694) /uL Lymph # (Auto) (4751-6370) /uL [place] # (Auto) (0-900) /uL Eos # (Auto) (0-450) /uL Baso # (Auto) (0-100) /uL Sodium (137-145) mmol/L Potassium (3.4-5.1) mmol/L Chloride (98-107) mmol/L Carbon Dioxide (22-32) mmol/L BUN (9-20) mg/dL Creatinine (0.66-1.25) mg/dL Estimated GFR (>60) mL/min BUN/Creatinine Ratio (6-22) Glucose (80-110) mg/dL Calcium (8.4-10.2) mg/dL Total Bilirubin (0.2-1.3) mg/dL AST (17-59) IU/L ALT (<50) IU/L Alkaline Phosphatase (38-126) U/L Total Protein (6.3-8.2) g/dL Albumin (3.5-5.0) g/dL Globulin (1.7-4.1) g/dL Albumin/Globulin Ratio (1.0-2.8) Folate > 20.0 H (2.76-20.0) ng/mL TSH (0.47-4.68) uIU/mL Free T4 (0.78-2.19) ng/dL Urine RBC (0-5/HPF) Urine WBC (0-5/HPF) Ur Squamous Epith Cells (0-5/HPF) Urine Bacteria (None) Ur Culture Indicated? Salicylates (<20) mg/dL U Opiates 300ng/mL cut (Negative) Ur Oxycodone Screen (Negative) Urine Methadone Screen (Negative) Acetaminophen (10-30) ug/mL Ur Barbiturates Screen (Negative) U Tricyclic Antidepress (Negative) Ur Phencyclidine Scrn (Negative) Ur Amphetamines Screen (Negative) U Methamphetamines Scrn (Negative) Ur MDMA Scrn (Ecstasy) (Negative) U Benzodiazepines Scrn (Negative) Urine Cocaine Screen (Negative) U Marijuana (THC) Screen (Negative) Ethyl Alcohol ( - 10) mg/dL SARS-CoV-2 (PCR) (Negative) Urine Dip Bedside Urine Glucose Negative Bedside Urine Bilirubin - Negative Bedside Urine Ketone + 15 Urine Specific [place] 1.015 Bedside Urine Occult Blood +/- Bedside Urine pH 6.0 Bedside Urine Protein + 30 Bedside Urine Urobilinogen +/- 1mg Bedside Urine Nitrite - Negative Bedside Urine Leukocytes - Negative Esterase Discharge Plan Departure Patient Disposition: Home Clinical Impression: Alcohol use disorder, mild, abuse Instructions: DI for Alcohol Use Disorder Activity Restrictions/Additional Instructions: *You have been diagnosed with alcohol use disorder and were requesting admission to detox facility but unfortunately we were unable to find an open bed at any facilities in the [facility]. *What to do: *Please continue to take your regular medications as directed. [ ] New medication prescriptions sent to your pharmacy: [ ] [ ] New medication written as a paper prescription [ x] No new medications given *Please follow up with your primary care provider in 2-3 days, call for an appointment. Let them know you were seen in the Emergency Department and that we ask that you be seen in follow up. We will electronically transmit a record of today's note if your PCP is in our system *If you do not have a primary care provider please contact the [facility] Resource line at [phone]. They will ask some questions about your medical history and help get you set up with a doctor in the community. *Return to Emergency Department if you should have any new, worsening or concerning symptoms, such as [fever greater than 101F, chills, worsening pain, persistent vomiting or other bothersome symptoms] Prescriptions: No Action multivitamin [Daily Multi-Vitamin] Tablet 1 tab PO QAM RF: 0 vitamin B complex Tablet 1 tab PO DAILY RF: 0 aspirin [Adult Low Dose Aspirin] 81 mg tablet,delayed release (DR/EC) 81 mg PO DAILY RF: 0 cholecalciferol (vitamin D3) 25 mcg (1,000 unit) capsule 4,000 unit PO DAILY RF: 0 omeprazole 20 mg capsule,delayed release(DR/EC) 20 mg PO QAM RF: 0 tamsulosin [Flomax] 0.4 mg capsule 0.4 mg PO QPM Qty: 0 RF: 0 trazodone 100 mg tablet 100 mg PO BEDTIME PRN (Reason: Insomnia) Qty: 30 RF: 5 testosterone cypionate 200 mg/mL oil 200 mg IM Q2W RF: 0 gabapentin 600 mg tablet 600 mg PO TID PRN (Reason: Back Pain) RF: 0 lorazepam [Ativan] 1 mg tablet See Rx Instructions .ROUTE .COMPLEX Qty: 10 RF: 0 testosterone cypionate 200 mg/mL oil 200 mg IM Q3W RF: 0 Referrals: Maria Teresa Talley PA-C [Primary Care Provider] - <Elena Jason DO - Last Filed: 03/16/21 08:21> Cosign ED Attending Tylerature Attestation: I was immediately available in the department for consultation. Documentation has been reviewed. I agree with assessment and plan.
--- NOTE | 2021-03-15 14:08 | PC.NURSE ---
Pt with hx of sleep apnea, added 2L by NC for O2 support.
[2021-03-15 14:10] LABS: COVID19 -Nasal RAPID Negative (Negative)
[2021-03-15 14:11] LABS: Ethanol (ETOH) 368 mg/dL
[2021-03-15 14:29] LABS: Free T4, Direct Thyroxine 1.01 ng/dL (0.78-2.19)
[2021-03-15 14:43] LABS: Thyroid Stimulating Hormone 1.43 uIU/mL (0.47-4.68)
[2021-03-15] MEDS: SODIUM CHLORIDE 0.9% 1,000 ML 500 ML IV (14:46)
[2021-03-15] MEDS: THIAMINE 100 MG in DEXTROSE 5 % IN WATER 50 ML 204 ML IV (14:59)
[2021-03-15 15:48] LABS: UR Morphine/Opiate cutoff 300 Negative (Negative); Ur Creatinine Normal (Normal); Ur Specific Gravity Normal (Normal); Urine Amphetamines Negative (Negative); Urine Barbiturates Negative (Negative); Urine Benzodiazepines Negative (Negative); Urine Cocaine Negative (Negative); Urine MDMA Negative (Negative); Urine Methadone Negative (Negative); Urine Methamphetamines Negative (Negative); Urine Oxycodone Negative (Negative); Urine Phencyclidine Negative (Negative); Urine Tetrahydrocannabinol Negative (Negative); Urine Tricyclic Antidepressant Negative (Negative); Urine pH Normal (Normal)
[2021-03-15 15:50] LABS: Bacteria Urine Occasional (0-1); RBC Urine 0-1/HPF (0-5/HPF); Squamous Epithelial Cell Urine 0-1 /HPF (0-5/HPF); WBC Urine 1-5/HPF (0-5/HPF)
[2021-03-15 15:51] LABS: Culture Indicated Urine Specimen Cultured
[2021-03-15] MEDS: PHENobarbital 65 MG/ML VIAL 130 MG IV (16:18)
--- NOTE | 2021-03-15 16:22 | DI.RAD.S_ITS ---
PROCEDURE: XR CHEST 1V INDICATIONS: Flu like symptoms TECHNIQUE: One view of the chest was acquired. COMPARISON: [facility], CR, XR CHEST 2 VIEWS, 01/17/2021, 14:06. [facility], CR, XR CHEST 1V, 11/10/2018, 16:48. FINDINGS: Surgical changes and devices: None. Lungs and pleura: Lungs are clear. No pleural effusions or pneumothorax. Mediastinum: Mediastinal contours appear normal. Heart size is normal. Bones and chest wall: No suspicious bony lesions. Overlying soft tissues appear unremarkable. IMPRESSION: No acute pulmonary process. Dictated by: Victorina Olea M.D. on 03/15/2021 at 16:42 Approved by: Victorina Olea M.D. on 03/15/2021 at 16:43
[2021-03-15] MEDS: FOLIC ACID 1 MG TABLET PO (17:21)
[2021-03-15] MEDS: LORazepam 0.5 MG TABLET 2 MG PO (17:51)
[2021-03-15 18:12] LABS: Folate > 20.0 ng/mL (2.76-20.0)
== END 2021-03-15 18:01 | disposition home or self-care (01) ==
PROVIDERS: Emergency Medicine; Emergency Provider Nurse Practitioner Critical Care Medicine; PCP Student in an Organized Health Care Education/Training Program
DX: F10.129 Alcohol abuse with intoxication, unspecified (principal); Y90.8 Blood alcohol level of 240 mg/100 ml or more; Z20.822 Contact with and (suspected) exposure to COVID-19
CPT/HCPCS: 36415; 71045; 80053; 80305; 80320; 80329; 81003; 81015; 82746; 84439; 84443; 85025; 87086; 87635; 96361; 96374; 99284; 99285; C9803; G0480; J2560

== ENCOUNTER 2021-03-17 15:25 | Emergency (ER) | payer MEDICARE, OTHER, SELFPAY ==
[2021-03-17] VITALS (20 sets, daily range): BP systolic 112–150; BP diastolic 63–97; PULSE 76–92; RESP 13–24; TEMP 36.4; O2SAT 90–98
--- NOTE | 2021-03-17 18:57 | ED_ITS ---
HPI - General Adult <Marcello Recinos DO - Last Filed: 03/24/21 06:56> General Chief complaint: Toxicology Problem Stated complaint: ETOH -detox Time Seen by Provider: 03/17/21 17:55 Source: patient and EMS Mode of arrival: EMS History of Present Illness HPI narrative: Patient is a 65-year-old male. Well known to myself in this emergency department. Is a known alcoholic. Has been your in the emergency department multiple times in the past for various issues related to alcohol use disorder. He has been here in the past week where he was eventually discharged home. He arrives the emergency department today again seeking treatment for his alcohol use. His last drink was shortly before arrival here in the ER. He has withdrawn from alcohol in the past but has never had seizures. He states that the previous the times that he has been to detox as soon as he is discharged from detox he starts to drink again. He would like more long-term treatment. He states that if he is discharged in the emergency department he will just start drinking again and would not like to to this. Related Data Home Medications Medication Instructions Recorded Confirmed tamsulosin 0.4 mg capsule (Flomax) 0.4 mg PO QPM #0 cap 06/23/19 01/03/21 testosterone cypionate 200 mg/mL 200 mg IM Q3W ml 06/23/19 01/03/21 intramuscular oil aspirin 81 mg tablet,delayed 81 mg PO DAILY 10/11/19 01/03/21 release (Adult Low Dose Aspirin) cholecalciferol (vitamin D3) 25 4,000 unit PO DAILY cap 10/11/19 01/03/21 mcg (1,000 unit) capsule multivitamin (Daily Multi-Vitamin) 1 tab PO QAM 10/11/19 01/03/21 omeprazole 20 mg capsule,delayed 20 mg PO QAM 10/11/19 01/03/21 release vitamin B complex 1 tab PO DAILY 10/11/19 01/03/21 gabapentin 600 mg tablet 600 mg PO TID PRN 01/03/21 01/03/21 testosterone cypionate 200 mg/mL 200 mg IM Q2W 01/03/21 01/03/21 intramuscular oil Previous Rx's Medication Instructions Recorded lorazepam 1 mg tablet (Ativan) See Rx Instructions .ROUTE 01/03/21 .COMPLEX #10 tab trazodone 100 mg tablet 100 mg PO BEDTIME PRN #30 tab 01/11/21 Allergies Allergy/AdvReac Type Severity Reaction Status Date / Time hydrochlorothiazide Allergy Severe Anaphylaxis Verified 01/25/21 17:00 [HYDROCHLOROTHIAZIDE] lisinopril [LISINOPRIL] Allergy Severe Anaphylaxis Verified 01/25/21 17:00 Review of Systems <Marcello Recinos DO - Last Filed: 03/24/21 06:56> Cardiovascular Cardiovascular: Denies chest pain and Denies dyspnea Respiratory Respiratory: Denies dyspnea Gastrointestinal Gastrointestinal: Denies abdominal pain, Denies nausea and Denies vomiting Genitourinary Genitourinary: Reports system reviewed and no additional complaints, except as documented Integumentary/Breasts Skin/Breast: Reports system reviewed and no additional complaints, except as documented Neurologic Neurologic: Reports system reviewed and no additional complaints, except as documented Psychiatric Psychiatric: Reports anxiety Hematologic/Lymphatic On Anticoagulants: No Allergic/Immunologic Allergic/Immunologic: Reports system reviewed and no additional complaints, except as documented Patient History <Marcello Recinos DO - Last Filed: 03/24/21 06:56> Medical History Alcohol use disorder, severe, in early remission Alcoholism Cirrhosis Hypertension Major depression Surgical History H/O rhinoplasty History of fasciotomy 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 Family History Unknown Cancer Social History (Updated 03/18/21 @ 05:28 by Marcello Recinos DO) household members: none Smoking Status: Former smoker alcohol intake: current substance use type: does not use Smoking Status: Former smoker alcohol intake frequency: 3 or more drinks per day Alcohol type: hard liquor Substance Use Type: does not use Exam <DO Lisa Landin Last Filed: 03/24/21 06:56> Initial Vital Signs Initial Vital Signs: Vital Signs Temperature 97.5 F L 03/17/21 15:33 Pulse Rate 84 03/17/21 15:33 Blood Pressure 131/65 03/17/21 15:33 Pulse Oximetry 91 03/17/21 15:33 HENMT Head: normal to inspection and normocephalic Resp Effort & Inspection: normal respiratory effort Cardio Rate: regular rate and bradycardic GI Inspection: normal to inspection Skin General: no rashes or lesions noted Neuro General: patient alert, patient awake, patient oriented x3 and moves all extremities Extrem General: normal to inspection and capillary refill normal Psych Appearance: grossly normal <Elena Jason DO - Last Filed: 03/18/21 18:19> Initial Vital Signs Initial Vital Signs: Vital Signs Temperature 97.5 F L 03/17/21 15:33 Pulse Rate 84 03/17/21 15:33 Blood Pressure 131/65 03/17/21 15:33 Pulse Oximetry 91 03/17/21 15:33 Scores <Marcello Recinos DO - Last Filed: 03/24/21 06:56> GCS [place] coma scale eye opening: Spontaneous Chi coma scale verbal response: Orientated Chi coma scale motor response: Obey commands Chi coma scale total score: 15 <Elena Jason DO - Last Filed: 03/18/21 18:19> GCS [place] coma scale total score: 15 Course <Marcello Recinos DO - Last Filed: 03/24/21 06:56> Orders Ordered: Discontinued Medications Al Hydrox/Mg Hydrox/Simethicone 20 ml/ Lidocaine HCl 15 ml 0 ml PO NOW ONE Stop: 03/17/21 21:15 Last Admin: 03/17/21 21:19 Dose: 35 ml Documented by: SHAY Magnesium Sulfate 2 gm/ Folic Acid 1 mg/ Thiamine HCl 100 mg / Multivitamins 10 ml/ Sodium Chloride 1,015.2 mls @ 125 mls/hr IV NOW ONE Stop: 03/18/21 03:05 Last Admin: 03/17/21 20:53 Dose: Not Given Documented by: SHAY Thiamine HCl 100 mg/ Sodium (Chloride) 101 mls @ 404 mls/hr IV NOW ONE Stop: 03/17/21 20:42 Last Infusion: 03/17/21 21:50 Dose: 0 mls/hr Documented by: Admin: 03/17/21 21:04 Dose: 404 mls/hr Documented by: SHAY Lorazepam (Lorazepam 2 Mg/Ml Inj) 1 mg IV NOW ONE Stop: 03/17/21 22:32 Last Admin: 03/17/21 22:38 Dose: 1 mg Documented by: SHAY Lorazepam (Lorazepam 2 Mg/Ml Inj) 1 mg IV NOW ONE Stop: 03/18/21 00:57 Last Admin: 03/18/21 01:29 Dose: 1 mg Documented by: MICHAEL Lorazepam (Lorazepam 2 Mg/Ml Inj) 1 mg IV NOW ONE Stop: 03/18/21 06:22 Last Admin: 03/18/21 06:26 Dose: 1 mg Documented by: JESS Metoprolol Tartrate (Metoprolol Ir 25 Mg Tablet) 25 mg PO NOW ONE Stop: 03/18/21 04:21 Last Admin: 03/18/21 04:30 Dose: 25 mg Documented by: JESS Multivitamins (Multivitamin 1 Tablet) 1 tab PO DAILY ONE Stop: 03/17/21 20:42 Last Admin: 03/17/21 21:11 Dose: 1 tab Documented by: SHAY Ondansetron HCl (Ondansetron 4 Mg/2 Ml Inj) 4 mg IV NOW ONE Stop: 03/18/21 02:20 Last Admin: 03/18/21 02:24 Dose: 4 mg Documented by: MICHAEL Ondansetron HCl (Ondansetron 4 Mg/2 Ml Inj) 4 mg IV NOW ONE Stop: 03/18/21 09:31 Last Admin: 03/18/21 09:37 Dose: 4 mg Documented by: MARLON Phenobarbital (Phenobarbital 65 Mg/Ml Vial) 260 mg IV NOW ONE Stop: 03/17/21 18:59 Last Admin: 03/17/21 19:14 Dose: 260 mg Documented by: SHAY Phenobarbital (Phenobarbital 65 Mg/Ml Vial) 130 mg IV NOW ONE Stop: 03/18/21 08:50 Last Admin: 03/18/21 09:38 Dose: 130 mg Documented by: MARLON Vital Signs Vital signs: Vital Signs - 8 hr 03/18/21 11:24 03/18/21 11:30 03/18/21 12:00 Pulse Rate 61 62 60 Respiratory Rate 19 17 Blood Pressure 136/63 130/63 Pulse Oximetry 93 92 93 03/18/21 12:30 03/18/21 15:16 Pulse Rate 64 63 Respiratory Rate 18 Blood Pressure 126/69 129/67 Pulse Oximetry 95 98 <Elena Jason DO - Last Filed: 03/18/21 18:19> Orders Ordered: Discontinued Medications Al Hydrox/Mg Hydrox/Simethicone 20 ml/ Lidocaine HCl 15 ml 0 ml PO NOW ONE Stop: 03/17/21 21:15 Last Admin: 03/17/21 21:19 Dose: 35 ml Documented by: SHAY Magnesium Sulfate 2 gm/ Folic Acid 1 mg/ Thiamine HCl 100 mg / Multivitamins 10 ml/ Sodium Chloride 1,015.2 mls @ 125 mls/hr IV NOW ONE Stop: 03/18/21 03:05 Last Admin: 03/17/21 20:53 Dose: Not Given Documented by: SHAY Thiamine HCl 100 mg/ Sodium (Chloride) 101 mls @ 404 mls/hr IV NOW ONE Stop: 03/17/21 20:42 Last Infusion: 03/17/21 21:50 Dose: 0 mls/hr Documented by: Admin: 03/17/21 21:04 Dose: 404 mls/hr Documented by: SHAY Lorazepam (Lorazepam 2 Mg/Ml Inj) 1 mg IV NOW ONE Stop: 03/17/21 22:32 Last Admin: 03/17/21 22:38 Dose: 1 mg Documented by: SHAY Lorazepam (Lorazepam 2 Mg/Ml Inj) 1 mg IV NOW ONE Stop: 03/18/21 00:57 Last Admin: 03/18/21 01:29 Dose: 1 mg Documented by: MICHAEL Lorazepam (Lorazepam 2 Mg/Ml Inj) 1 mg IV NOW ONE Stop: 03/18/21 06:22 Last Admin: 03/18/21 06:26 Dose: 1 mg Documented by: JESS Metoprolol Tartrate (Metoprolol Ir 25 Mg Tablet) 25 mg PO NOW ONE Stop: 03/18/21 04:21 Last Admin: 03/18/21 04:30 Dose: 25 mg Documented by: JESS Multivitamins (Multivitamin 1 Tablet) 1 tab PO DAILY ONE Stop: 03/17/21 20:42 Last Admin: 03/17/21 21:11 Dose: 1 tab Documented by: SHAY Ondansetron HCl (Ondansetron 4 Mg/2 Ml Inj) 4 mg IV NOW ONE Stop: 03/18/21 02:20 Last Admin: 03/18/21 02:24 Dose: 4 mg Documented by: MICHAEL Ondansetron HCl (Ondansetron 4 Mg/2 Ml Inj) 4 mg IV NOW ONE Stop: 03/18/21 09:31 Last Admin: 03/18/21 09:37 Dose: 4 mg Documented by: MARLON Phenobarbital (Phenobarbital 65 Mg/Ml Vial) 260 mg IV NOW ONE Stop: 03/17/21 18:59 Last Admin: 03/17/21 19:14 Dose: 260 mg Documented by: SHAY Phenobarbital (Phenobarbital 65 Mg/Ml Vial) 130 mg IV NOW ONE Stop: 03/18/21 08:50 Last Admin: 03/18/21 09:38 Dose: 130 mg Documented by: MARLON Vital Signs Vital signs: Vital Signs - 8 hr 03/18/21 11:24 03/18/21 11:30 03/18/21 12:00 Pulse Rate 61 62 60 Respiratory Rate 19 17 Blood Pressure 136/63 130/63 Pulse Oximetry 93 92 93 03/18/21 12:30 03/18/21 15:16 Pulse Rate 64 63 Respiratory Rate 18 Blood Pressure 126/69 129/67 Pulse Oximetry 95 98 Medical Decision Making <Marcello Recinos DO - Last Filed: 03/24/21 06:56> Medical Records Medical records reviewed: Yes I reviewed the patient's medical records. Lab Data Lab results reviewed: Yes I reviewed the patient's lab results. Result diagrams: 03/17/21 19:19 03/17/21 19:19 Labs: Lab Results 03/17/21 03/17/21 03/17/21 Range/Units 18:14 18:14 19:19 WBC 2.7 L (4.5-11.0) X10^3/uL RBC 4.15 L (4.5-5.9) X10^6/uL Hgb 12.9 L (13.5-17.5) g/dL Hct 38.7 L (41-53) % MCV 93.5 (80-100) fL MCH 31.1 (26-34) PG MCHC 33.3 (30-36) % RDW 19.6 H (11.6-14.8) % Plt Count 70 L (150-400) X10^3/uL Neut % (Auto) Not Reportable Lymph % (Auto) Not Reportable [place] % (Auto) Not Reportable Eos % (Auto) Not Reportable Baso % (Auto) Not Reportable Lymph # (Auto) Not Reportable [place] # (Auto) Not Reportable Baso # (Auto) Not Reportable Total Counted 50 Seg Neutrophils % 14.0 L (38-70) % Lymphocytes % (Manual) 52.0 H (25-45) % Atypical Lymphs % 20.0 H ( - 0) % Monocytes % (Manual) 10.0 (2-11) % Eosinophils % (Manual) 4.0 (2-4) % Neutrophils # (Manual) 378 L (9448-2322) /uL RBC Morphology See below Poikilocytosis 1+ H Anisocytosis 1+ H Target Cells 1+ H Sodium (137-145) mmol/L Potassium (3.4-5.1) mmol/L Chloride (98-107) mmol/L Carbon Dioxide (22-32) mmol/L BUN (9-20) mg/dL Creatinine (0.66-1.25) mg/dL Estimated GFR (>60) mL/min BUN/Creatinine Ratio (6-22) Glucose (80-110) mg/dL Calcium (8.4-10.2) mg/dL Total Bilirubin (0.2-1.3) mg/dL AST (17-59) IU/L ALT (<50) IU/L Alkaline Phosphatase (38-126) U/L Total Protein (6.3-8.2) g/dL Albumin (3.5-5.0) g/dL Globulin (1.7-4.1) g/dL Albumin/Globulin Ratio (1.0-2.8) Lipase (23-300) U/L Urine Color Dark yellow Urine Appearance Cloudy Urine pH 6.5 (4.5-8.0) Ur Specific [place] 1.020 (1.000-1.035) Urine Protein 1+ H (Negative) Urine Glucose (UA) Trace H (Negative) g/dL Urine Ketones 1+ H (NEGATIVE) Urine Occult Blood Negative (Negative) Urine Nitrate Negative (Negative) Urine Bilirubin 1+ H (NEGATIVE) Ur Bilirubin Confirm Positive H (Negative) Urine Urobilinogen 4.0 H (0.2) E.U./dL Ur Leukocyte Esterase Trace H (NEGATIVE) Urine RBC 0-1/hpf (0-5/HPF) Urine WBC None seen (0-5/HPF) Ur Squamous Epith Cells 0-1 /hpf (0-5/HPF) Calcium Oxalate Crystal Moderate H Urine Bacteria Few (2-10) H (None) Hyaline Casts 0-1/lpf (None) Urine Mucus 2+ H (Negative) Ur Culture Indicated? Cult not indicated U Opiates 300ng/mL cut Negative (Negative) Ur Oxycodone Screen Negative (Negative) Urine Methadone Screen Negative (Negative) Ur Barbiturates Screen Negative (Negative) U Tricyclic Antidepress Negative (Negative) Ur Phencyclidine Scrn Negative (Negative) Ur Amphetamines Screen Negative (Negative) U Methamphetamines Scrn Negative (Negative) Ur MDMA Scrn (Ecstasy) Negative (Negative) U Benzodiazepines Scrn Positive H (Negative) Urine Cocaine Screen Negative (Negative) U Marijuana (THC) Screen Negative (Negative) Ethyl Alcohol ( - 10) mg/dL SARS-CoV-2 (PCR) (Negative) 03/17/21 03/17/21 03/17/21 Range/Units 19:19 19:19 20:45 WBC (4.5-11.0) X10^3/uL RBC (4.5-5.9) X10^6/uL Hgb (13.5-17.5) g/dL Hct (41-53) % MCV (80-100) fL MCH (26-34) PG MCHC (30-36) % RDW (11.6-14.8) % Plt Count (150-400) X10^3/uL Neut % (Auto) Lymph % (Auto) [place] % (Auto) Eos % (Auto) Baso % (Auto) Lymph # (Auto) [place] # (Auto) Baso # (Auto) Total Counted Seg Neutrophils % (38-70) % Lymphocytes % (Manual) (25-45) % Atypical Lymphs % ( - 0) % Monocytes % (Manual) (2-11) % Eosinophils % (Manual) (2-4) % Neutrophils # (Manual) (1205-5594) /uL RBC Morphology Poikilocytosis Anisocytosis Target Cells Sodium 143 (137-145) mmol/L Potassium 4.0 (3.4-5.1) mmol/L Chloride 102 (98-107) mmol/L Carbon Dioxide 32 (22-32) mmol/L BUN 13 (9-20) mg/dL Creatinine 0.54 L (0.66-1.25) mg/dL Estimated GFR > 60.0 (>60) mL/min BUN/Creatinine Ratio 24.1 H (6-22) Glucose 98 (80-110) mg/dL Calcium 9.1 (8.4-10.2) mg/dL Total Bilirubin 1.4 H (0.2-1.3) mg/dL AST 174 H (17-59) IU/L ALT 96 H (<50) IU/L Alkaline Phosphatase 131 H (38-126) U/L Total Protein 7.2 (6.3-8.2) g/dL Albumin 3.7 (3.5-5.0) g/dL Globulin 3.5 (1.7-4.1) g/dL Albumin/Globulin Ratio 1.1 (1.0-2.8) Lipase 78 (23-300) U/L Urine Color Urine Appearance Urine pH (4.5-8.0) Ur Specific [place] (1.000-1.035) Urine Protein (Negative) Urine Glucose (UA) (Negative) g/dL Urine Ketones (NEGATIVE) Urine Occult Blood (Negative) Urine Nitrate (Negative) Urine Bilirubin (NEGATIVE) Ur Bilirubin Confirm (Negative) Urine Urobilinogen (0.2) E.U./dL Ur Leukocyte Esterase (NEGATIVE) Urine RBC (0-5/HPF) Urine WBC (0-5/HPF) Ur Squamous Epith Cells (0-5/HPF) Calcium Oxalate Crystal Urine Bacteria (None) Hyaline Casts (None) Urine Mucus (Negative) Ur Culture Indicated? U Opiates 300ng/mL cut (Negative) Ur Oxycodone Screen (Negative) Urine Methadone Screen (Negative) Ur Barbiturates Screen (Negative) U Tricyclic Antidepress (Negative) Ur Phencyclidine Scrn (Negative) Ur Amphetamines Screen (Negative) U Methamphetamines Scrn (Negative) Ur MDMA Scrn (Ecstasy) (Negative) U Benzodiazepines Scrn (Negative) Urine Cocaine Screen (Negative) U Marijuana (THC) Screen (Negative) Ethyl Alcohol 191 H ( - 10) mg/dL SARS-CoV-2 (PCR) Negative (Negative) ECG Data Attestation: I personally reviewed and interpreted this ECG as follows: Interpretation: Sinus rhythm Ventricular rate 92 First degree AV block the pain arrival to 1 0 milliseconds Normal QRS Normal QTC No ST T wave changes MDM Narrative Medical decision making narrative: Patient is a known alcoholic. Has had anxiet y but is otherwise been stable. Given his history and his desire for help he was kept in the emergency department for further evaluation. He did have some anxiety throughout the night. He is given Ativan which seemed to help his symptoms. No vomiting. He did have a few episodes where it appeared to be AFib with RVR on the monitor. We were unable to catch it on an EKG. Patient states he has had a history of AFib in the past especially with detoxing from alcohol. He has been on metoprolol in the past. He was given 1 dose of metoprolol. Patient continues to remain stable and desires help for treatment. Care turned over to Dr. Jason to follow up and disposition. <Elena Jason, DO - Last Filed: 03/18/21 18:19> Lab Data Labs: Lab Results 03/17/21 03/17/21 03/17/21 Range/Units 18:14 18:14 19:19 WBC 2.7 L (4.5-11.0) X10^3/uL RBC 4.15 L (4.5-5.9) X10^6/uL Hgb 12.9 L (13.5-17.5) g/dL Hct 38.7 L (41-53) % MCV 93.5 (80-100) fL MCH 31.1 (26-34) PG MCHC 33.3 (30-36) % RDW 19.6 H (11.6-14.8) % Plt Count 70 L (150-400) X10^3/uL Neut % (Auto) Not Reportable Lymph % (Auto) Not Reportable [place] % (Auto) Not Reportable Eos % (Auto) Not Reportable Baso % (Auto) Not Reportable Lymph # (Auto) Not Reportable [place] # (Auto) Not Reportable Baso # (Auto) Not Reportable Total Counted 50 Seg Neutrophils % 14.0 L (38-70) % Lymphocytes % (Manual) 52.0 H (25-45) % Atypical Lymphs % 20.0 H ( - 0) % Monocytes % (Manual) 10.0 (2-11) % Eosinophils % (Manual) 4.0 (2-4) % Neutrophils # (Manual) 378 L (3124-6443) /uL RBC Morphology See below Poikilocytosis 1+ H Anisocytosis 1+ H Target Cells 1+ H Sodium (137-145) mmol/L Potassium (3.4-5.1) mmol/L Chloride (98-107) mmol/L Carbon Dioxide (22-32) mmol/L BUN (9-20) mg/dL Creatinine (0.66-1.25) mg/dL Estimated GFR (>60) mL/min BUN/Creatinine Ratio (6-22) Glucose (80-110) mg/dL Calcium (8.4-10.2) mg/dL Total Bilirubin (0.2-1.3) mg/dL AST (17-59) IU/L ALT (<50) IU/L Alkaline Phosphatase (38-126) U/L Total Protein (6.3-8.2) g/dL Albumin (3.5-5.0) g/dL Globulin (1.7-4.1) g/dL Albumin/Globulin Ratio (1.0-2.8) Lipase (23-300) U/L Urine Color Dark yellow Urine Appearance Cloudy Urine pH 6.5 (4.5-8.0) Ur Specific [place] 1.020 (1.000-1.035) Urine Protein 1+ H (Negative) Urine Glucose (UA) Trace H (Negative) g/dL Urine Ketones 1+ H (NEGATIVE) Urine Occult Blood Negative (Negative) Urine Nitrate Negative (Negative) Urine Bilirubin 1+ H (NEGATIVE) Ur Bilirubin Confirm Positive H (Negative) Urine Urobilinogen 4.0 H (0.2) E.U./dL Ur Leukocyte Esterase Trace H (NEGATIVE) Urine RBC 0-1/hpf (0-5/HPF) Urine WBC None seen (0-5/HPF) Ur Squamous Epith Cells 0-1 /hpf (0-5/HPF) Calcium Oxalate Crystal Moderate H Urine Bacteria Few (2-10) H (None) Hyaline Casts 0-1/lpf (None) Urine Mucus 2+ H (Negative) Ur Culture Indicated? Cult not indicated U Opiates 300ng/mL cut Negative (Negative) Ur Oxycodone Screen Negative (Negative) Urine Methadone Screen Negative (Negative) Ur Barbiturates Screen Negative (Negative) U Tricyclic Antidepress Negative (Negative) Ur Phencyclidine Scrn Negative (Negative) Ur Amphetamines Screen Negative (Negative) U Methamphetamines Scrn Negative (Negative) Ur MDMA Scrn (Ecstasy) Negative (Negative) U Benzodiazepines Scrn Positive H (Negative) Urine Cocaine Screen Negative (Negative) U Marijuana (THC) Screen Negative (Negative) Ethyl Alcohol ( - 10) mg/dL SARS-CoV-2 (PCR) (Negative) 03/17/21 03/17/21 03/17/21 Range/Units 19:19 19:19 20:45 WBC (4.5-11.0) X10^3/uL RBC (4.5-5.9) X10^6/uL Hgb (13.5-17.5) g/dL Hct (41-53) % MCV (80-100) fL MCH (26-34) PG MCHC (30-36) % RDW (11.6-14.8) % Plt Count (150-400) X10^3/uL Neut % (Auto) Lymph % (Auto) [place] % (Auto) Eos % (Auto) Baso % (Auto) Lymph # (Auto) [place] # (Auto) Baso # (Auto) Total Counted Seg Neutrophils % (38-70) % Lymphocytes % (Manual) (25-45) % Atypical Lymphs % ( - 0) % Monocytes % (Manual) (2-11) % Eosinophils % (Manual) (2-4) % Neutrophils # (Manual) (4988-1598) /uL RBC Morphology Poikilocytosis Anisocytosis Target Cells Sodium 143 (137-145) mmol/L Potassium 4.0 (3.4-5.1) mmol/L Chloride 102 (98-107) mmol/L Carbon Dioxide 32 (22-32) mmol/L BUN 13 (9-20) mg/dL Creatinine 0.54 L (0.66-1.25) mg/dL Estimated GFR > 60.0 (>60) mL/min BUN/Creatinine Ratio 24.1 H (6-22) Glucose 98 (80-110) mg/dL Calcium 9.1 (8.4-10.2) mg/dL Total Bilirubin 1.4 H (0.2-1.3) mg/dL AST 174 H (17-59) IU/L ALT 96 H (<50) IU/L Alkaline Phosphatase 131 H (38-126) U/L Total Protein 7.2 (6.3-8.2) g/dL Albumin 3.7 (3.5-5.0) g/dL Globulin 3.5 (1.7-4.1) g/dL Albumin/Globulin Ratio 1.1 (1.0-2.8) Lipase 78 (23-300) U/L Urine Color Urine Appearance Urine pH (4.5-8.0) Ur Specific [place] (1.000-1.035) Urine Protein (Negative) Urine Glucose (UA) (Negative) g/dL Urine Ketones (NEGATIVE) Urine Occult Blood (Negative) Urine Nitrate (Negative) Urine Bilirubin (NEGATIVE) Ur Bilirubin Confirm (Negative) Urine Urobilinogen (0.2) E.U./dL Ur Leukocyte Esterase (NEGATIVE) Urine RBC (0-5/HPF) Urine WBC (0-5/HPF) Ur Squamous Epith Cells (0-5/HPF) Calcium Oxalate Crystal Urine Bacteria (None) Hyaline Casts (None) Urine Mucus (Negative) Ur Culture Indicated? U Opiates 300ng/mL cut (Negative) Ur Oxycodone Screen (Negative) Urine Methadone Screen (Negative) Ur Barbiturates Screen (Negative) U Tricyclic Antidepress (Negative) Ur Phencyclidine Scrn (Negative) Ur Amphetamines Screen (Negative) U Methamphetamines Scrn (Negative) Ur MDMA Scrn (Ecstasy) (Negative) U Benzodiazepines Scrn (Negative) Urine Cocaine Screen (Negative) U Marijuana (THC) Screen (Negative) Ethyl Alcohol 191 H ( - 10) mg/dL SARS-CoV-2 (PCR) Negative (Negative) MDM Narrative Medical decision making narrative: Patient is a known alcoholic. Has had anxiety but is otherwise been stable. Given his history and his desire for help he was kept in the emergency department for further evaluation. He did have some anxiety throughout the night. He is given Ativan which seemed to help his symptoms. No vomiting. He did have a few episodes where it appeared to be AFib with RVR on the monitor. We were unable to catch it on an EKG. Patient states he has had a history of AFib in the past especially with detoxing from alcohol. He has been on metoprolol in the past. He was given 1 dose of metoprolol. Patient continues to remain stable and desires help for treatment. Care turned over to Dr. Jason to follow up and disposition. Dr. Jason: Received sign-out from Dr. Recinos this morning. I seen evaluated patient myself. Is a bit shaky but awake and alert. Social work has been in s een evaluated him. To detox centers have been notified. 1 of them does have a bed. Needs to go to detox before going to rehab. Patient has been accepted every have in [place] Discharge Plan Departure Patient Disposition: Home Clinical Impression: Alcoholic intoxication Instructions: DI for Alcohol Use Disorder Activity Restrictions/Additional Instructions: Go to Detox in [facility], then go to rehab Good luck Calderon! You got this!! Follow-up with your primary care doctor Return to emergency department for 7 any new or worsening symptoms Prescriptions: No Action multivitamin [Daily Multi-Vitamin] Tablet 1 tab PO QAM RF: 0 vitamin B complex Tablet 1 tab PO DAILY RF: 0 aspirin [Adult Low Dose Aspirin] 81 mg tablet,delayed release (DR/EC) 81 mg PO DAILY RF: 0 cholecalciferol (vitamin D3) 25 mcg (1,000 unit) capsule 4,000 unit PO DAILY RF: 0 omeprazole 20 mg capsule,delayed release(DR/EC) 20 mg PO QAM RF: 0 tamsulosin [Flomax] 0.4 mg capsule 0.4 mg PO QPM Qty: 0 RF: 0 trazodone 100 mg tablet 100 mg PO BEDTIME PRN (Reason: Insomnia) Qty: 30 RF: 5 testosterone cypionate 200 mg/mL oil 200 mg IM Q2W RF: 0 gabapentin 600 mg tablet 600 mg PO TID PRN (Reason: Back Pain) RF: 0 lorazepam [Ativan] 1 mg tablet See Rx Instructions .ROUTE .COMPLEX Qty: 10 RF: 0 testosterone cypionate 200 mg/mL oil 200 mg IM Q3W RF: 0 Referrals: Maria Teresa Talley PA-C [Primary Care Provider] -
[2021-03-17] MEDS: PHENobarbital 65 MG/ML VIAL 260 MG IV (19:14)
[2021-03-17 19:33] LABS: Ethanol (ETOH) 191 mg/dL; Lipase 78 U/L (23-300)
[2021-03-17 19:34] LABS: Alanine Aminotransferase 96 IU/L (<50); Albumin 3.7 g/dL (3.5-5.0); Albumin Globulin Ratio 1.1 (1.0-2.8); Alkaline Phosphatase 131 U/L (38-126); Aspartate Aminotransferase 174 IU/L (17-59); BUN Creatinine Ratio 24.1 (6-22); Bilirubin Total 1.4 mg/dL (0.2-1.3); Blood Urea Nitrogen 13 mg/dL (9-20); Calcium 9.1 mg/dL (8.4-10.2); Carbon Dioxide 32 mmol/L (22-32); Chloride 102 mmol/L (98-107); Estimated Glomerular Filt Rate > 60.0 mL/min (>60); Globulin 3.5 g/dL (1.7-4.1); Glucose 98 mg/dL (80-110); HEMOLYSIS 41 (0-50); Sodium 143 mmol/L (137-145); Total Protein 7.2 g/dL (6.3-8.2)
[2021-03-17 19:39] LABS: Hematocrit 38.7 % (41-53); Hemoglobin 12.9 g/dL (13.5-17.5); Mean Corpuscular HGB Conc 33.3 % (30-36); Mean Corpuscular Hemoglobin 31.1 PG (26-34); Mean Corpuscular Volume 93.5 fL (80-100); Red Blood Cell Count 4.15 X10^6/uL (4.5-5.9); Red Cell Distribution Width 19.6 % (11.6-14.8); White Blood Cell Count 2.7 X10^3/uL (4.5-11.0)
[2021-03-17 19:41] LABS: Add Manual Diff / Slide Review YES; Platelet Count 70 X10^3/uL (150-400)
[2021-03-17 19:54] LABS: Neutrophils Absolute Manual 378 /uL (3000-5900); Total Cells Counted 50
[2021-03-17 19:55] LABS: Anisocytosis 1+; Poikilocytosis 1+; Target Cells 1+
[2021-03-17 20:59] LABS: Bilirubin Urine UA 1+ (NEGATIVE); Glucose Urine UA TRACE g/dL (Negative); Ketones Urine UA 1+ (NEGATIVE); Leukocyte Esterase Urine UA TRACE (NEGATIVE); Nitrite Urine UA NEGATIVE (Negative); Occult Blood Urine UA NEGATIVE (Negative); Protein Urine UA 1+ (Negative); pH Urine UA 6.5 (4.5-8.0)
[2021-03-17 21:04] LABS: UR Morphine/Opiate cutoff 300 Negative (Negative); Ur Creatinine Normal (Normal); Ur Specific Gravity Normal (Normal); Urine Amphetamines Negative (Negative); Urine Barbiturates Negative (Negative); Urine Benzodiazepines Positive (Negative); Urine Cocaine Negative (Negative); Urine MDMA Negative (Negative); Urine Methadone Negative (Negative); Urine Methamphetamines Negative (Negative); Urine Oxycodone Negative (Negative); Urine Phencyclidine Negative (Negative); Urine Tetrahydrocannabinol Negative (Negative); Urine Tricyclic Antidepressant Negative (Negative); Urine pH Normal (Normal)
[2021-03-17] MEDS: THIAMINE 100 MG in SODIUM CHLORIDE 0.9% 100 ML 404 ML IV (21:04)
[2021-03-17 21:09] LABS: Appearance Urine UA CLOUDY; Color Urine UA Dark Yellow
[2021-03-17 21:10] LABS: Bacteria Urine Few (2-10); Calcium Oxalate Crystals Urine Moderate; Culture Indicated Urine Cult Not Indicated; Hyaline Casts Urine 0-1/LPF; Ictotest Urine Positive (Negative); Mucus Urine 2+ (Negative); RBC Urine 0-1/HPF (0-5/HPF); Squamous Epithelial Cell Urine 0-1 /HPF (0-5/HPF); WBC Urine None Seen (0-5/HPF)
[2021-03-17 21:11] LABS: COVID19 -Nasal RAPID Negative (Negative)
[2021-03-17] MEDS: MULTIVITAMIN 1 TABLET 1 TAB PO (21:11)
[2021-03-17] MEDS: MAG HYDROX/ALUMINUM/SIMETH SUS 20 ML, LIDOCAINE VISCOUS 2% 15 ML PO (21:19)
[2021-03-17] MEDS: LORazepam 2 MG/ML INJ 1 MG IV (22:38)
[2021-03-18] VITALS (26 sets, daily range): BP systolic 124–161; BP diastolic 63–86; PULSE 60–99; RESP 16–31; TEMP 37.1; O2SAT 90–98
[2021-03-18] MEDS: LORazepam 2 MG/ML INJ 1 MG IV ×2 (01:29→06:26)
--- NOTE | 2021-03-18 01:46 | PC.NURSE ---
Pt medicated with ativan for complaints of anxiety. Denies other withdrawal symptoms.
[2021-03-18] MEDS: ONDANSETRON 4 MG/2 ML INJ IV ×2 (02:24→09:37)
[2021-03-18] MEDS: METOPROLOL IR 25 MG TABLET PO (04:30)
--- NOTE | 2021-03-18 07:36 | PC.NURSE ---
Rounded on this pt to update vitals and assess his status - he is awake/alert in bed, appearing slightly anxious but with controlled movements and appropriate responses. Pt not wearing a mask and coughing into the air. This RN gave him a new mask and instructed him to keep it on at all times. VSS. HR now mid 80's NSR. Awaiting PRIVATE PILOT assessment.
[2021-03-18] MEDS: PHENobarbital 65 MG/ML VIAL 130 MG IV (09:38)
--- NOTE | 2021-03-18 11:41 | PC.NURSE ---
Pt is sleeping in bed with stable VS, resps even, unlabored. Appears comfortable. Call light within reach.
--- NOTE | 2021-03-19 09:03 | CM.SWNOTE ---
POLYSOMNOGRAPHER Note: Reviewed ED note. POLYSOMNOGRAPHER spoke with Dr. Jason in AM on 03-18-21 re: alcohol detox. Dr. Jason reports that patient willing to go to detox but ultimately wants long-term treatment. Patient has long h/o ED visits requesting assistance (see previous notes for details). POLYSOMNOGRAPHER placed call to [facility] re: bed availability? [facility] report that they do have beds but that they are unable to accept this patient. Per [facility] patient requires more care than they can offer. [facility] recommends POLYSOMNOGRAPHER call [facility] in [place] # [phone]. Placed call and they do report that they have bed but patient will need to do phone assessment prior to acceptance. POLYSOMNOGRAPHER met with patient in AM on 03-18. Patient alert, oriented, and agreeable to detox. Patient provided with phone number. P: POLYSOMNOGRAPHER updated ED staff and Dr. Jason re: the above. Patient instructed to call [facility] for detox bed [place] ED team notified to call POLYSOMNOGRAPHER if needed for further assistance. [facility]
== END 2021-03-18 15:55 | disposition home or self-care (01) ==
PROVIDERS: Emergency Medicine; Emergency Provider Emergency Medicine; PCP Student in an Organized Health Care Education/Training Program
DX: F10.129 Alcohol abuse with intoxication, unspecified (principal); Y90.6 Blood alcohol level of 120-199 mg/100 ml; Z20.822 Contact with and (suspected) exposure to COVID-19
CPT/HCPCS: 36415; 80053; 80305; 80320; 81001; 83690; 85007; 85025; 87635; 93005; 96361; 96374; 96375; 96376; 99284; C9803; J2060; J2405; J2560

== ENCOUNTER 2021-03-24 21:53 | Emergency (ER) | payer MEDICARE, OTHER, SELFPAY ==
[2021-03-24 22:06] VITALS: BP 167/77; PULSE 75; RESP 18; TEMP 36.2; O2SAT 97; BMI 36.5
--- NOTE | 2021-03-24 22:17 | DI.US.S_ITS ---
PROCEDURE: US ABDOMEN LIMITED INDICATIONS: RUQ PAIN TECHNIQUE: Real-time scanning was performed of the abdominal and retroperitoneal organs, with image documentation. COMPARISON: [facility], US, US ABDOMEN COMPLETE, 10/10/2019, 13:24. FINDINGS: Liver: Liver is normal in size and homogeneous in echotexture. Gallbladder: There are numerous tiny layering gallstones and sludge identified near the gallbladder neck. These do not appear mobile. No wall thickening. No pericholecystic fluid. Negative sonographic Rothman's. Biliary ducts: Intrahepatic bile ducts are non-dilated. Extrahepatic bile duct caliber measures 6 mm. Normal is 6-7 mm or less in diameter, or 10 mm or less post-cholecystectomy. Pancreas: Visualized portions of the pancreas are sonographically normal. IMPRESSION: Redemonstration of cholelithiasis. No sonographic evidence of acute cholecystitis. Dictated by: Jose Laurent M.D. on 03/24/2021 at 23:25 Approved by: Jose Laurent M.D. on 03/24/2021 at 23:27
--- NOTE | 2021-03-24 22:18 | ED.ABDPAIN ---
HPI - Abdominal Pain General Chief Complaint: Abdominal Pain Stated Complaint: abdominal pain x6 hours Time Seen by Provider: 03/24/21 22:05 Source: patient Mode of arrival: Ambulatory Limitations: no limitations History of Present Illness HPI narrative: 65-year-old male former smoker with extensive alcohol history presents with a chief complaint of an episode of severe upper abdominal pain and severe right upper quadrant pain that started a few hours ago and was most intense just prior to his arrival. He states the pain was so intense that it made him nauseated but he did not vomit. It seemed clear significantly in the parking lot and he debated whether not he wanted to come in. He denies any obvious provocation or palliation. He states the pain was sharp, stabbing and crampy and seemed to radiate across his upper abdomen and saddle in the right upper quadrant. He denies any radiation to his back or shoulder. He has had no fever or chills. He denies any medication change or change in diet. He last ate at about 9:00 p.m. and states he had some shrimp and milk. He denies any constipation or diarrhea nor urinary complaints such as dysuria, frequency or urgency. He does have a history of gallbladder disease and states this feels quite similar. He was seen most recently about a week ago and had a medical clearance for alcohol detox and states his last drink was 7 days ago. He denies any dark and tarry stools Related Data Home Medications Medication Instructions Recorded Confirmed tamsulosin 0.4 mg capsule (Flomax) 0.4 mg PO QPM #0 cap 06/23/19 01/03/21 testosterone cypionate 200 mg/mL 200 mg IM Q3W ml 06/23/19 01/03/21 intramuscular oil aspirin 81 mg tablet,delayed 81 mg PO DAILY 10/11/19 01/03/21 release (Adult Low Dose Aspirin) cholecalciferol (vitamin D3) 25 4,000 unit PO DAILY cap 10/11/19 01/03/21 mcg (1,000 unit) capsule multivitamin (Daily Multi-Vitamin) 1 tab PO QAM 10/11/19 01/03/21 omeprazole 20 mg capsule,delayed 20 mg PO QAM 10/11/19 01/03/21 release vitamin B complex 1 tab PO DAILY 10/11/19 01/03/21 gabapentin 600 mg tablet 600 mg PO TID PRN 01/03/21 01/03/21 testosterone cypionate 200 mg/mL 200 mg IM Q2W 01/03/21 01/03/21 intramuscular oil Previous Rx's Medication Instructions Recorded lorazepam 1 mg tablet (Ativan) See Rx Instructions .ROUTE 01/03/21 .COMPLEX #10 tab trazodone 100 mg tablet 100 mg PO BEDTIME PRN #30 tab 01/11/21 Allergies Allergy/AdvReac Type Severity Reaction Status Date / Time hydrochlorothiazide Allergy Severe Anaphylaxis Verified 01/25/21 17:00 [HYDROCHLOROTHIAZIDE] lisinopril [LISINOPRIL] Allergy Severe Anaphylaxis Verified 01/25/21 17:00 Review of Systems Review of Systems Narrative: GENERAL: Denies chills, fatigue, malaise, fever, sweats. HEENT: Denies sinus pain, ear pain, sore throat, difficulty swallowing, dizziness. RESPIRATORY: Denies dyspnea, cough, wheezing, hemoptysis, sputum. CARDIOVASCULAR: Denies chest pain, palpitations, orthopnea, edema, GASTROINTESTINAL: See HPI : Denies dysuria, frequency, incontinence, hematuria, urinary retention. MUSCULOSKELETAL: denies weakness, joint pain, or bony pain SKIN: Denies rash, skin lesions, or other NEUROLOGIC: Denies weakness, headache, numbness, change in speech, confusion, seizures, incoordination. PSYCHIATRIC: No concerning psychosocial issues. 12 point review of systems is negative except for those stated above 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 Family History Unknown Cancer Social History household members: none Smoking Status: Former smoker alcohol intake: current substance use type: does not use Smoking Status: Former smoker alcohol intake frequency: 0-2 drinks per day Alcohol type: hard liquor Substance Use Type: does not use Exam Narrative Exam Narrative: GENERAL: [65 year old patient appears stated age. Well-developed patient, in mild distress. HEAD: Atraumatic. Normocephalic. EYES: Pupils equal round and reactive. Extraocular motions intact. No scleral icterus. No injection or drainage. ENT: Nose without bleeding, purulent drainage. Throat without erythema, tonsillar hypertrophy or exudate. Airway patent. NECK: Trachea midline. Non tender CARDIOVASCULAR: Regular rate and rhythm without murmurs, gallops, or rubs. RESPIRATORY: Clear to auscultation. Breath sounds equal bilaterally. No wheezes, rales, or rhonchi. GASTROINTESTINAL: Abdomen soft, mildly distended, tender to palpation in the right upper quadrant, bowel sounds present throughout EXTREMITIES: No edema or joint tenderness. BACK: Nontender without deformity or crepitance. No flank tenderness. NEURO: AOx3. SKIN: No rash or erythema of visible areas Initial Vital Signs Initial Vital Signs: Vital Signs Temperature 97.1 F L 03/24/21 22:06 Pulse Rate 75 03/24/21 22:06 Respiratory Rate 18 03/24/21 22:06 Blood Pressure 167/77 H 03/24/21 22:06 Pulse Oximetry 97 03/24/21 22:06 Course Orders Ordered: ED Orders 03/24/21 22:17 US abdomen limited Stat 03/24/21 22:30 Complete Blood Count AUTO DIFF Stat Comprehensive Metabolic Panel Stat Lipase Stat Discontinued Medications Sodium Chloride (Normal Saline 0.9%) 1,000 mls @ 1,000 mls/hr IV BOLUS ONE Stop: 03/24/21 23:10 Vital Signs Vital signs: Vital Signs - 8 hr 03/24/21 22:06 03/24/21 23:53 03/24/21 23:54 Temperature 97.1 F L Pulse Rate 75 74 72 Respiratory Rate 18 Blood Pressure 167/77 H 122/59 L Pulse Oximetry 97 98 98 03/25/21 00:02 Temperature Pulse Rate 78 Respiratory Rate 18 Blood Pressure 122/59 L Pulse Oximetry 98 MDM - Abdominal Pain Lab Data Result diagrams: 03/24/21 22:30 03/24/21 22:30 Labs: Lab Results 03/24/21 03/24/21 Range/Units 22:30 22:30 WBC 4.2 L (4.5-11.0) X10^3/uL RBC 3.72 L (4.5-5.9) X10^6/uL Hgb 11.5 L (13.5-17.5) g/dL Hct 35.8 L (41-53) % MCV 96.2 (80-100) fL MCH 31.0 (26-34) PG MCHC 32.2 (30-36) % RDW 20.0 H (11.6-14.8) % Plt Count 149 L (150-400) X10^3/uL Neut % (Auto) 47.8 L (50-75) % Lymph % (Auto) 30.0 (25-40) % [place] % (Auto) 19.8 H (3-14) % Eos % (Auto) 1.2 L (2-4) % Baso % (Auto) 1.2 (0-2) % Neut # (Auto) 2000 (6365-0756) /uL Lymph # (Auto) 1300 (2284-2251) /uL [place] # (Auto) 800 (0-900) /uL Eos # (Auto) 100 (0-450) /uL Baso # (Auto) 100 (0-100) /uL Sodium 137 (137-145) mmol/L Potassium 4.5 (3.4-5.1) mmol/L Chloride 104 (98-107) mmol/L Carbon Dioxide 29 (22-32) mmol/L BUN 24 H (9-20) mg/dL Creatinine 0.81 (0.66-1.25) mg/dL Estimated GFR > 60.0 (>60) mL/min BUN/Creatinine Ratio 29.6 H (6-22) Glucose 104 (80-110) mg/dL Calcium 9.6 (8.4-10.2) mg/dL Total Bilirubin 1.2 (0.2-1.3) mg/dL AST 137 H (17-59) IU/L ALT 53 H (<50) IU/L Alkaline Phosphatase 115 (38-126) U/L Total Protein 7.1 (6.3-8.2) g/dL Albumin 3.6 (3.5-5.0) g/dL Globulin 3.5 (1.7-4.1) g/dL Albumin/Globulin Ratio 1.0 (1.0-2.8) Lipase 118 D (23-300) U/L Imaging Data US - abdomen: Radiologist's Impression: [address] [address] Ultrasound Report Signed Patient: Zacarias Webster MR#: [id number] : 1955 Acct:[id number] Age/Sex: 65 / M Date of Service: 03/24/21 Loc: ED Accession Number: [id number] ?? Procedure: US abdomen limited Ordering Provider: Drew Tinoco D.O. PROCEDURE:? US ABDOMEN LIMITED ? INDICATIONS:? RUQ PAIN ? TECHNIQUE:? Real-time scanning was performed of the abdominal and retroperitoneal organs, with image documentation.? ? COMPARISON:? [facility], US ABDOMEN COMPLETE, 10/10/2019, 13:24. ? FINDINGS:? ? Liver:? Liver is normal in size and homogeneous in echotexture.? ? Gallbladder:? There are numerous tiny layering gallstones and sludge identified near the gallbladder neck.? These do not appear mobile.? No wall thickening.? No pericholecystic fluid.? Negative sonographic Rothman's. ? Biliary ducts:? Intrahepatic bile ducts are non-dilated.? Extrahepatic bile duct caliber measures 6 mm.? Normal is 6-7 mm or less in diameter, or 10 mm or less post-cholecystectomy.? ? Pancreas:? Visualized portions of the pancreas are sonographically normal.? ? IMPRESSION:? ? Redemonstration of cholelithiasis.? No sonographic evidence of acute cholecystitis. ? ? ? Dictated by: Jose Laurent M.D. on 03/24/2021 at 23:25 ? ? Approved by: Jose Laurent M.D. on 03/24/2021 at 23:27 ? MDM Narrative Medical decision making narrative: Multiple etiologies for patient's symptoms considered include, but not limited to: [Pancreatitis versus gallbladder disease versus obstruction versus kidney stone versus diverticulitis versus other Patient's symptoms improved prior to even arriving, no need for pain medications here. Pain is well controlled, patient is tolerating orals. History, physical exam, labs, imaging have been reassuring. Findings and discharge diagnosis discussed with patient/family followed by verbalization of understanding Return precautions discussed with patient/family whom verbalize understanding. Pain has been well controlled and patient is tolerating oral hydration. Discharge Plan Departure Patient Disposition: Home Clinical Impression: Biliary colic Instructions: Gallstones, DI for Gallstones Activity Restrictions/Additional Instructions: *You have been diagnosed with [abdominal pain which is likely due to gallstones, your currently not having pain, labs are very reassuring and the ultrasound shows no evidence of the need for immediate surgery to address her gallbladder. *What to do: *Please continue to take your regular medications as directed. *Please follow up with Dr. Woo of [facility] in 2-3 days, call for an appointment. Let them know you were seen in the Emergency Department and that we ask that you be seen in follow up. We will electronically transmit a record of today's note if your PCP is in our system * please consider a clear liquid diet for the next 24 hours or so. After this, avoid fatty foods, alcohol, nicotine, spicy foods and dairy. *Return to Emergency Department if you should have any new, worsening or concerning symptoms, such as [fever greater than 101 F, shaking chills, worsening pain, persistent vomiting or other bothersome symptoms] Prescriptions: No Action multivitamin [Daily Multi-Vitamin] Tablet 1 tab PO QAM RF: 0 vitamin B complex Tablet 1 tab PO DAILY RF: 0 aspirin [Adult Low Dose Aspirin] 81 mg tablet,delayed release (DR/EC) 81 mg PO DAILY RF: 0 cholecalciferol (vitamin D3) 25 mcg (1,000 unit) capsule 4,000 unit PO DAILY RF: 0 omeprazole 20 mg capsule,delayed release(DR/EC) 20 mg PO QAM RF: 0 tamsulosin [Flomax] 0.4 mg capsule 0.4 mg PO QPM Qty: 0 RF: 0 trazodone 100 mg tablet 100 mg PO BEDTIME PRN (Reason: Insomnia) Qty: 30 RF: 5 testosterone cypionate 200 mg/mL oil 200 mg IM Q2W RF: 0 gabapentin 600 mg tablet 600 mg PO TID PRN (Reason: Back Pain) RF: 0 lorazepam [Ativan] 1 mg tablet See Rx Instructions .ROUTE .COMPLEX Qty: 10 RF: 0 testosterone cypionate 200 mg/mL oil 200 mg IM Q3W RF: 0 Referrals: Maria Teresa Talley PA-C [Primary Care Provider] - Edgardo Woo MD [Physician] -
[2021-03-24 22:44] LABS: Add Manual Diff / Slide Review NO; Basophils Absolute Auto 100 /uL (0-100); Basophils Percent Auto 1.2 % (0-2); Eosinophils Absolute Auto 100 /uL (0-450); Eosinophils Percent Auto 1.2 % (2-4); Hematocrit 35.8 % (41-53); Hemoglobin 11.5 g/dL (13.5-17.5); Lymphocytes Absolute Auto 1300 /uL (1100-4500); Mean Corpuscular HGB Conc 32.2 % (30-36); Mean Corpuscular Volume 96.2 fL (80-100); Monocytes Absolute Auto 800 /uL (0-900); Monocytes Percent Auto 19.8 % (3-14); Neutrophils Absolute Auto 2000 /uL (1500-7000); Neutrophils Percent Auto 47.8 % (50-75); Platelet Count 149 X10^3/uL (150-400); Red Blood Cell Count 3.72 X10^6/uL (4.5-5.9); White Blood Cell Count 4.2 X10^3/uL (4.5-11.0)
[2021-03-24 22:58] LABS: Alanine Aminotransferase 53 IU/L (<50); Albumin 3.6 g/dL (3.5-5.0); Alkaline Phosphatase 115 U/L (38-126); Aspartate Aminotransferase 137 IU/L (17-59); BUN Creatinine Ratio 29.6 (6-22); Bilirubin Total 1.2 mg/dL (0.2-1.3); Blood Urea Nitrogen 24 mg/dL (9-20); Calcium 9.6 mg/dL (8.4-10.2); Carbon Dioxide 29 mmol/L (22-32); Chloride 104 mmol/L (98-107); Estimated Glomerular Filt Rate > 60.0 mL/min (>60); Globulin 3.5 g/dL (1.7-4.1); Glucose 104 mg/dL (80-110); HEMOLYSIS 24 (0-50); Lipase 118 U/L (23-300); Potassium 4.5 mmol/L (3.4-5.1); Sodium 137 mmol/L (137-145); Total Protein 7.1 g/dL (6.3-8.2)
[2021-03-24 23:53] VITALS: PULSE 74; O2SAT 98
[2021-03-24 23:54] VITALS: BP 122/59; PULSE 72; O2SAT 98
[2021-03-25 00:02] VITALS: BP 122/59; PULSE 78; RESP 18; O2SAT 98
== END 2021-03-25 00:03 | disposition home or self-care (01) ==
PROVIDERS: Emergency Provider Emergency Medicine; PCP Student in an Organized Health Care Education/Training Program
DX: K80.50 Calculus of bile duct without cholangitis or cholecystitis without obstruction (principal)
CPT/HCPCS: 76705; 80053; 83690; 85025; 99283; 99284

== ENCOUNTER → 2021-04-01 10:41 | Outpatient (CLI) | payer MEDICARE, OTHER, SELFPAY ==
[2021-04-01 13:14] LABS: COVID19 -Nasal RAPID Negative (Negative)
== END ==
PROVIDERS: PCP Student in an Organized Health Care Education/Training Program; Visit Provider Physician Assistant
DX: Z01.812 Encounter for preprocedural laboratory examination (principal); Z20.822 Contact with and (suspected) exposure to COVID-19
CPT/HCPCS: 87635; C9803

== ENCOUNTER 2021-04-12 15:16 | Emergency (ER) | payer MEDICARE, OTHER, SELFPAY ==
[2021-04-12] VITALS (16 sets, daily range): BP systolic 124–146; BP diastolic 69–86; PULSE 92–128; RESP 16–26; TEMP 36.4; O2SAT 88–100; BMI 34.9
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
[2021-04-12 16:48] LABS: Add Manual Diff / Slide Review NO; Basophils Absolute Auto 0 /uL (0-100); Eosinophils Absolute Auto 0 /uL (0-450); Hematocrit 41.2 % (41-53); Hemoglobin 13.8 g/dL (13.5-17.5); Lymphocytes Absolute Auto 1200 /uL (1100-4500); Lymphocytes Percent Auto 41.9 % (25-40); Mean Corpuscular HGB Conc 33.6 % (30-36); Mean Corpuscular Hemoglobin 30.9 PG (26-34); Monocytes Absolute Auto 200 /uL (0-900); Monocytes Percent Auto 6.7 % (3-14); Neutrophils Absolute Auto 1400 /uL (1500-7000); Neutrophils Percent Auto 50.4 % (50-75); Platelet Count 68 X10^3/uL (150-400); Red Blood Cell Count 4.48 X10^6/uL (4.5-5.9); White Blood Cell Count 2.7 X10^3/uL (4.5-11.0)
[2021-04-12 16:49] LABS: Acetaminophen < 10 ug/mL (10-30); Alanine Aminotransferase 52 IU/L (<50); Albumin 4.1 g/dL (3.5-5.0); Albumin Globulin Ratio 1.2 (1.0-2.8); Alkaline Phosphatase 245 U/L (38-126); Aspartate Aminotransferase 216 IU/L (17-59); BUN Creatinine Ratio 19.2 (6-22); Bilirubin Total 2.2 mg/dL (0.2-1.3); Blood Urea Nitrogen 14 mg/dL (9-20); Calcium 9.8 mg/dL (8.4-10.2); Carbon Dioxide 22 mmol/L (22-32); Chloride 99 mmol/L (98-107); Estimated Glomerular Filt Rate > 60.0 mL/min (>60); Ethanol (ETOH) 154 mg/dL; Globulin 3.4 g/dL (1.7-4.1); Glucose 115 mg/dL (80-110); HEMOLYSIS 21 (0-50); Salicylate < 1.0 mg/dL (<20); Sodium 139 mmol/L (137-145); Total Protein 7.5 g/dL (6.3-8.2)
[2021-04-12 16:50] LABS: Red Cell Distribution Width 19.9 % (11.6-14.8)
[2021-04-12 16:54] LABS: COVID19 -Nasal RAPID Negative (Negative)
--- NOTE | 2021-04-12 17:14 | ED_ITS ---
HPI - Alcohol <Lamar Funez RECORDS MANAGEMENT ANALYST - Last Filed: 04/12/21 20:21> General Chief Complaint: Toxicology Problem Stated Complaint: ETOH Time Seen by Provider: 04/12/21 16:54 Source: patient Mode of arrival: Ambulatory Limitations: no limitations History of Present Illness HPI narrative: 65-year-old male is a former smoker with extensive alcohol history presents with a chief complaint of seeking medical clearance for entrance to alcohol detox. He has had no fever or chills.??He arrives the emergency department today again seeking treatment for his alcohol use.? His last drink was shortly before arrival here in the ER.? He has withdrawn from alcohol in the past but has never had seizures.? He states that the previous the times that he has been to detox as soon as he is discharged from detox he starts to drink again.? He would like more long-term treatment.? He denies any medication change or change in diet.? He states he has not eaten in the last day or 2. He denies any constipation, diarrhea, or urinary complaints such as dysuria, frequency or urgency.? He does have a history of gallbladder disease but denies any abdominal pain today and denies any medical complaint. He was s een most recently on 03/24/2021 for gallstones. He was also here on 03/18/21 and had a medical clearance for alcohol detox.? He denies any dark and tarry stools. Related Data Home Medications Medication Instructions Recorded Confirmed tamsulosin 0.4 mg capsule (Flomax) 0.4 mg PO QPM #0 cap 06/23/19 01/03/21 testosterone cypionate 200 mg/mL 200 mg IM Q3W ml 06/23/19 01/03/21 intramuscular oil aspirin 81 mg tablet,delayed 81 mg PO DAILY 10/11/19 01/03/21 release (Adult Low Dose Aspirin) cholecalciferol (vitamin D3) 25 4,000 unit PO DAILY cap 10/11/19 01/03/21 mcg (1,000 unit) capsule multivitamin (Daily Multi-Vitamin) 1 tab PO QAM 10/11/19 01/03/21 omeprazole 20 mg capsule,delayed 20 mg PO QAM 10/11/19 01/03/21 release vitamin B complex 1 tab PO DAILY 10/11/19 01/03/21 gabapentin 600 mg tablet 600 mg PO TID PRN 01/03/21 01/03/21 testosterone cypionate 200 mg/mL 200 mg IM Q2W 01/03/21 01/03/21 intramuscular oil Previous Rx's Medication Instructions Recorded lorazepam 1 mg tablet (Ativan) See Rx Instructions .ROUTE 01/03/21 .COMPLEX #10 tab trazodone 100 mg tablet 100 mg PO BEDTIME PRN #30 tab 01/11/21 Allergies Allergy/AdvReac Type Severity Reaction Status Date / Time hydrochlorothiazide Allergy Severe Anaphylaxis Verified 04/12/21 15:24 [HYDROCHLOROTHIAZIDE] lisinopril [LISINOPRIL] Allergy Severe Anaphylaxis Verified 04/12/21 15:24 Review of Systems <BONG Campos - Last Filed: 04/12/21 20:21> Review of Systems Narrative: General: denies fever, chills, endorses having tremors Head/Neck: denies headache, neck pain Eyes: denies visual changes, eye pain Cardio: denies chest pain, palpitations Respiratory: denies shortness of breath, cough GI: denies abdominal pain, nausea, vomiting, or diarrhea : denies dysuria, hematuria MSK: denies joint pain, muscle weakness Skin: denies rash, itching Neuro: denies numbness, tingling Patient History <BONG Campos - Last Filed: 04/12/21 20:21> Medical History Alcohol use disorder, severe, in early remission Alcoholism Cirrhosis Hypertension Major depression Surgical History H/O rhinoplasty History of fasciotomy 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 General: Awake, alert, nontoxic, no cardiorespiratory distress, patient is mildly tremulous with tongue fasciculations Head/Neck: Atraumatic, neck full range of motion Eyes: EOMI, conjunctiva normal Nose: nares patent, no rhinorrhea Mouth/Throat: moist mucus membranes, no oral lesions Cardio: Normal sinus rhythm on EKG, patient did have 1 run of AFib with RVR which was self-limited at a rate of 160, no peripheral edema, no murmurs gallops or rubs Respiratory: Breath sounds clear to auscultation, respirations unlabored witho ut wheezing, stridor, or rales. No retractions. GI: Abdomen soft, nontender to palpation x4 quadrants MSK: Moves all extremities, neurovascularly intact, no joint tenderness, Skin: Normal capillary refill, no rash Neuro: Normal speech and cognition, normal gait Initial Vital Signs Initial Vital Signs: Vital Signs Temperature 97.5 F L 04/12/21 15:24 Pulse Rate 99 H 04/12/21 15:24 Respiratory Rate 22 04/12/21 15:24 Blood Pressure 139/86 04/12/21 15:24 Pulse Oximetry 100 04/12/21 15:24 <Dean Campbell MD - Last Filed: 04/13/21 07:22> Initial Vital Signs Initial Vital Signs: Vital Signs Temperature 97.5 F L 04/12/21 15:24 Pulse Rate 99 H 04/12/21 15:24 Respiratory Rate 22 04/12/21 15:24 Blood Pressure 139/86 04/12/21 15:24 Pulse Oximetry 100 04/12/21 15:24 Course <BONG Campos - Last Filed: 04/12/21 20:21> Orders Ordered: Discontinued Medications Sodium Chloride (Normal Saline 0.9%) 1,000 mls @ 1,000 mls/hr IV BOLUS ONE Stop: 04/12/21 18:04 Last Infusion: 04/12/21 19:58 Dose: 0 mls/hr Documented by: Admin: 04/12/21 17:20 Dose: 1,000 mls/hr Documented by: JULISSA Lorazepam (Lorazepam 2 Mg/Ml Inj) 1 mg IV Q1HR PRN PRN Reason: withdrawl Lorazepam (Lorazepam 2 Mg/Ml Inj) 2 mg IV NOW ONE Stop: 04/12/21 18:16 Last Admin: 04/12/21 18:19 Dose: 2 mg Documented by: JULISSA Metoprolol Succinate (Metoprolol Er 25 Mg Tablet) 25 mg PO NOW ONE Stop: 04/12/21 19:41 Last Admin: 04/12/21 19:56 Dose: 25 mg Documented by: JULISSA Multivitamins (Multivitamin 1 Tablet) 1 tab PO NOW ONE Stop: 04/12/21 17:06 Last Admin: 04/12/21 17:20 Dose: 1 tab Documented by: JULISSA Phenobarbital (Phenobarbital 65 Mg/Ml Vial) 260 mg IM NOW ONE Stop: 04/12/21 17:07 Last Admin: 04/12/21 17:13 Dose: Not Given Documented by: JULISSA Phenobarbital (Phenobarbital 65 Mg/Ml Vial) 260 mg IV NOW ONE Stop: 04/12/21 17:12 Last Admin: 04/12/21 17:20 Dose: 260 mg Documented by: JULISSA Vital Signs Vital signs: Vital Signs - 8 hr 04/12/21 15:24 04/12/21 15:52 04/12/21 15:55 Temperature 97.5 F L Pulse Rate 99 H 96 H 94 H Respiratory Rate 22 21 24 Blood Pressure 139/86 139/78 Pulse Oximetry 100 96 04/12/21 16:00 04/12/21 16:30 04/12/21 17:00 Temperature Pulse Rate 99 H 104 H 104 H Respiratory Rate 18 18 21 Blood Pressure 137/76 146/81 H 136/69 Pulse Oximetry 93 92 95 04/12/21 17:30 04/12/21 17:31 04/12/21 18:00 Temperature Pulse Rate 98 H 97 H 125 H Respiratory Rate 24 24 26 H Blood Pressure 124/77 Pulse Oximetry 97 99 04/12/21 18:30 04/12/21 19:00 04/12/21 19:30 Temperature Pulse Rate 93 H 114 H 111 H Respiratory Rate 20 20 21 Blood Pressure Pulse Oximetry 88 L 96 90 L 04/12/21 19:56 Temperature Pulse Rate 111 H Respiratory Rate Blood Pressure Pulse Oximetry <Dean Campbell MD - Last Filed: 04/13/21 07:22> Orders Ordered: Discontinued Medications Sodium Chloride (Normal Saline 0.9%) 1,000 mls @ 1,000 mls/hr IV BOLUS ONE Stop: 04/12/21 18:04 Last Infusion: 04/12/21 19:58 Dose: 0 mls/hr Documented by: Admin: 04/12/21 17:20 Dose: 1,000 mls/hr Documented by: JULISSA Lorazepam (Lorazepam 2 Mg/Ml Inj) 1 mg IV Q1HR PRN PRN Reason: withdrawl Lorazepam (Lorazepam 2 Mg/Ml Inj) 2 mg IV NOW ONE Stop: 04/12/21 18:16 Last Admin: 04/12/21 18:19 Dose: 2 mg Documented by: JULISSA Metoprolol Succinate (Metoprolol Er 25 Mg Tablet) 25 mg PO NOW ONE Stop: 04/12/21 19:41 Last Admin: 04/12/21 19:56 Dose: 25 mg Documented by: JULISSA Multivitamins (Multivitamin 1 Tablet) 1 tab PO NOW ONE Stop: 04/12/21 17:06 Last Admin: 04/12/21 17:20 Dose: 1 tab Documented by: JLUISSA Phenobarbital (Phenobarbital 65 Mg/Ml Vial) 260 mg IM NOW ONE Stop: 04/12/21 17:07 Last Admin: 04/12/21 17:13 Dose: Not Given Documented by: JULISSA Phenobarbital (Phenobarbital 65 Mg/Ml Vial) 260 mg IV NOW ONE Stop: 04/12/21 17:12 Last Admin: 04/12/21 17:20 Dose: 260 mg Documented by: JULISSA Vital Signs Vital signs: Vital Signs - 8 hr 04/12/21 15:24 04/12/21 15:52 04/12/21 15:55 Temperature 97.5 F L Pulse Rate 99 H 96 H 94 H Respiratory Rate 22 21 24 Blood Pressure 139/86 139/78 Pulse Oximetry 100 96 04/12/21 16:00 04/12/21 16:30 04/12/21 17:00 Temperature Pulse Rate 99 H 104 H 104 H Respiratory Rate 18 18 21 Blood Pressure 137/76 146/81 H 136/69 Pulse Oximetry 93 92 95 04/12/21 17:30 04/12/21 17:31 04/12/21 18:00 Temperature Pulse Rate 98 H 97 H 125 H Respiratory Rate 24 24 26 H Blood Pressure 124/77 Pulse Oximetry 97 99 04/12/21 18:30 04/12/21 19:00 04/12/21 19:30 Temperature Pulse Rate 93 H 114 H 111 H Respiratory Rate 20 20 21 Blood Pressure Pulse Oximetry 88 L 96 90 L 04/12/21 19:56 Temperature Pulse Rate 111 H Respiratory Rate Blood Pressure Pulse Oximetry MDM - Alcohol <MEGHA CamposP - Last Filed: 04/12/21 20:21> Lab Data Result diagrams: 04/12/21 15:40 04/12/21 15:40 Labs: Lab Results 04/12/21 04/12/21 04/12/21 Range/Units 15:40 15:40 15:40 WBC 2.7 L (4.5-11.0) X10^3/uL RBC 4.48 L (4.5-5.9) X10^6/uL Hgb 13.8 (13.5-17.5) g/dL Hct 41.2 (41-53) % MCV 92.0 (80-100) fL MCH 30.9 (26-34) PG MCHC 33.6 (30-36) % RDW 19.9 H (11.6-14.8) % Plt Count 68 L (150-400) X10^3/uL Neut % (Auto) 50.4 (50-75) % Lymph % (Auto) 41.9 H (25-40) % [place] % (Auto) 6.7 (3-14) % Eos % (Auto) 0.0 L (2-4) % Baso % (Auto) 1.0 (0-2) % Neut # (Auto) 1400 L (9212-0669) /uL Lymph # (Auto) 1200 (0487-5187) /uL [place] # (Auto) 200 (0-900) /uL Eos # (Auto) 0 (0-450) /uL Baso # (Auto) 0 (0-100) /uL Sodium (137-145) mmol/L Potassium (3.4-5.1) mmol/L Chloride (98-107) mmol/L Carbon Dioxide (22-32) mmol/L BUN (9-20) mg/dL Creatinine (0.66-1.25) mg/dL Estimated GFR (>60) mL/min BUN/Creatinine Ratio (6-22) Glucose (80-110) mg/dL Calcium (8.4-10.2) mg/dL Phosphorus (2.3-3.7) mg/dL Magnesium (1.6-2.3) mg/dL Total Bilirubin (0.2-1.3) mg/dL Conjugated Bilirubin (0.0-0.3) md/dL Unconjugated Bilirubin (0.0-1.1) mg/dL AST (17-59) IU/L ALT (<50) IU/L Alkaline Phosphatase (38-126) U/L Total Protein (6.3-8.2) g/dL Albumin (3.5-5.0) g/dL Globulin (1.7-4.1) g/dL Albumin/Globulin Ratio (1.0-2.8) Lipase (23-300) U/L TSH 1.17 (0.47-4.68) uIU/mL Ur Bilirubin Confirm (Negative) Urine RBC (0-5/HPF) Urine WBC (0-5/HPF) Ur Squamous Epith Cells (0-5/HPF) Amorphous Sediment Urine Bacteria (None) Hyaline Casts (None) Urine Mucus (Negative) Ur Culture Indicated? Salicylates < 1.0 (<20) mg/dL U Opiates 300ng/mL cut (Negative) Ur Oxycodone Screen (Negative) Urine Methadone Screen (Negative) Acetaminophen < 10 L (10-30) ug/mL Ur Barbiturates Screen (Negative) U Tricyclic Antidepress (Negative) Ur Phencyclidine Scrn (Negative) Ur Amphetamines Screen (Negative) U Methamphetamines Scrn (Negative) Ur MDMA Scrn (Ecstasy) (Negative) U Benzodiazepines Scrn (Negative) Urine Cocaine Screen (Negative) U Marijuana (THC) Screen (Negative) Ethyl Alcohol ( - 10) mg/dL SARS-CoV-2 (PCR) (Negative) 04/12/21 04/12/21 04/12/21 Range/Units 15:40 15:40 16:30 WBC (4.5-11.0) X10^3/uL RBC (4.5-5.9) X10^6/uL Hgb (13.5-17.5) g/dL Hct (41-53) % MCV (80-100) fL MCH (26-34) PG MCHC (30-36) % RDW (11.6-14.8) % Plt Count (150-400) X10^3/uL Neut % (Auto) (50-75) % Lymph % (Auto) (25-40) % [place] % (Auto) (3-14) % Eos % (Auto) (2-4) % Baso % (Auto) (0-2) % Neut # (Auto) (4379-7411) /uL Lymph # (Auto) (1379-8462) /uL [place] # (Auto) (0-900) /uL Eos # (Auto) (0-450) /uL Baso # (Auto) (0-100) /uL Sodium 139 Cancelled (137-145) mmol/L Potassium 4.0 Cancelled (3.4-5.1) mmol/L Chloride 99 Cancelled (98-107) mmol/L Carbon Dioxide 22 Cancelled (22-32) mmol/L BUN 14 Cancelled (9-20) mg/dL Creatinine 0.73 Cancelled (0.66-1.25) mg/dL Estimated GFR > 60.0 Cancelled (>60) mL/min BUN/Creatinine Ratio 19.2 Cancelled (6-22) Glucose 115 H Cancelled (80-110) mg/dL Calcium 9.8 Cancelled (8.4-10.2) mg/dL Phosphorus 3.5 (2.3-3.7) mg/dL Magnesium 1.1 L (1.6-2.3) mg/dL Total Bilirubin 2.2 H 2.2 H (0.2-1.3) mg/dL Conjugated Bilirubin 0.0 (0.0-0.3) md/dL Unconjugated Bilirubin 1.3 H (0.0-1.1) mg/dL AST 216 H 219 H (17-59) IU/L ALT 52 H 54 H (<50) IU/L Alkaline Phosphatase 245 H 231 H (38-126) U/L Total Protein 7.5 7.5 (6.3-8.2) g/dL Albumin 4.1 4.0 (3.5-5.0) g/dL Globulin 3.4 3.5 (1.7-4.1) g/dL Albumin/Globulin Ratio 1.2 1.1 (1.0-2.8) Lipase 69 (23-300) U/L TSH (0.47-4.68) uIU/mL Ur Bilirubin Confirm (Negative) Urine RBC (0-5/HPF) Urine WBC (0-5/HPF) Ur Squamous Epith Cells (0-5/HPF) Amorphous Sediment Urine Bacteria (None) Hyaline Casts (None) Urine Mucus (Negative) Ur Culture Indicated? Salicylates (<20) mg/dL U Opiates 300ng/mL cut (Negative) Ur Oxycodone Screen (Negative) Urine Methadone Screen (Negative) Acetaminophen (10-30) ug/mL Ur Barbiturates Screen (Negative) U Tricyclic Antidepress (Negative) Ur Phencyclidine Scrn (Negative) Ur Amphetamines Screen (Negative) U Methamphetamines Scrn (Negative) Ur MDMA Scrn (Ecstasy) (Negative) U Benzodiazepines Scrn (Negative) Urine Cocaine Screen (Negative) U Marijuana (THC) Screen (Negative) Ethyl Alcohol 154 H Cancelled ( - 10) mg/dL SARS-CoV-2 (PCR) Negative (Negative) 04/12/21 04/12/21 04/12/21 Range/Units 18:10 18:10 18:10 WBC (4.5-11.0) X10^3/uL RBC (4.5-5.9) X10^6/uL Hgb (13.5-17.5) g/dL Hct (41-53) % MCV (80-100) fL MCH (26-34) PG MCHC (30-36) % RDW (11.6-14.8) % Plt Count (150-400) X10^3/uL Neut % (Auto) (50-75) % Lymph % (Auto) (25-40) % [place] % (Auto) (3-14) % Eos % (Auto) (2-4) % Baso % (Auto) (0-2) % Neut # (Auto) (4284-9830) /uL Lymph # (Auto) (9409-7022) /uL [place] # (Auto) (0-900) /uL Eos # (Auto) (0-450) /uL Baso # (Auto) (0-100) /uL Sodium (137-145) mmol/L Potassium (3.4-5.1) mmol/L Chloride (98-107) mmol/L Carbon Dioxide (22-32) mmol/L BUN (9-20) mg/dL Creatinine (0.66-1.25) mg/dL Estimated GFR (>60) mL/min BUN/Creatinine Ratio (6-22) Glucose (80-110) mg/dL Calcium (8.4-10.2) mg/dL Phosphorus (2.3-3.7) mg/dL Magnesium (1.6-2.3) mg/dL Total Bilirubin (0.2-1.3) mg/dL Conjugated Bilirubin (0.0-0.3) md/dL Unconjugated Bilirubin (0.0-1.1) mg/dL AST (17-59) IU/L ALT (<50) IU/L Alkaline Phosphatase (38-126) U/L Total Protein (6.3-8.2) g/dL Albumin (3.5-5.0) g/dL Globulin (1.7-4.1) g/dL Albumin/Globulin Ratio (1.0-2.8) Lipase (23-300) U/L TSH (0.47-4.68) uIU/mL Ur Bilirubin Confirm Positive H (Negative) Urine RBC None seen (0-5/HPF) Urine WBC 1-5/hpf (0-5/HPF) Ur Squamous Epith Cells 0-1 /hpf (0-5/HPF) Amorphous Sediment 1+ Urine Bacteria Occasional (0-1) (None) Hyaline Casts 1-5/lpf (None) Urine Mucus 2+ H (Negative) Ur Culture Indicated? Specimen cultured Salicylates (<20) mg/dL U Opiates 300ng/mL cut Negative (Negative) Ur Oxycodone Screen Negative (Negative) Urine Methadone Screen Negative (Negative) Acetaminophen (10-30) ug/mL Ur Barbiturates Screen Negative (Negative) U Tricyclic Antidepress Negative (Negative) Ur Phencyclidine Scrn Negative (Negative) Ur Amphetamines Screen Negative (Negative) U Methamphetamines Scrn Negative (Negative) Ur MDMA Scrn (Ecstasy) Negative (Negative) U Benzodiazepines Scrn Negative (Negative) Urine Cocaine Screen Negative (Negative) U Marijuana (THC) Screen Negative (Negative) Ethyl Alcohol ( - 10) mg/dL SARS-CoV-2 (PCR) (Negative) Urine Dip Bedside Urine Glucose Negative Bedside Urine Bilirubin ++ 2 Bedside Urine Ketone +++ 80 Urine Specific [place] 1.020 Bedside Urine Occult Blood - Negative Bedside Urine pH 7.0 Bedside Urine Protein + 30 Bedside Urine Urobilinogen 2+ 4mg Bedside Urine Nitrite - Negative Bedside Urine Leukocytes +/- 15 Esterase ECG Data Interpretation: EKG shows normal sinus rhythm with a first-degree block, PACs, no ST changes, Ventricular rate is 96 be p.m., [place] interval is 218 milliseconds, QRS is 76 milliseconds, QTC is 358. Patient had a self-limited episode AFib with RVR rate of 160 this was captured on EKG at 6:09 p.m.. MDM Narrative Medical decision making narrative: Patient is a 65 year old known alcoholic with PMH HTN, depression, cirrhosis, alcoholism who presents to the ER requesting alcohol detox.? Patient underwent medical clearance without any significant abnormalities to his workup today.?Has had anxiety but is otherwise been stable.? He would like to go to the [facility] stabilization facility in [place] for detox. Today will received phenobarbitol and ativan per [facility] protocol, also received IV fluids. Pt had some intermittent AFib with rate of 100-115s. Patient states he has had a history of AFib in the past especially with detoxing from alcohol.? He has been on metoprolol in the past.? He was given 1 dose of metoprolol.? Patient continues to remain stable and desires help for treatment. utility worker arrange placement for patient at [facility] detox center at 8:00 p.m. No pertinent medical findings on exam or lab work, he is medically cleared for admission. Patient is amenable and agreeable to admission.?? <Dean Campbell MD - Last Filed: 04/13/21 07:22> Lab Data Labs: Lab Results 04/12/21 04/12/21 04/12/21 Range/Units 15:40 15:40 15:40 WBC 2.7 L (4.5-11.0) X10^3/uL RBC 4.48 L (4.5-5.9) X10^6/uL Hgb 13.8 (13.5-17.5) g/dL Hct 41.2 (41-53) % MCV 92.0 (80-100) fL MCH 30.9 (26-34) PG MCHC 33.6 (30-36) % RDW 19.9 H (11.6-14.8) % Plt Count 68 L (150-400) X10^3/uL Neut % (Auto) 50.4 (50-75) % Lymph % (Auto) 41.9 H (25-40) % [place] % (Auto) 6.7 (3-14) % Eos % (Auto) 0.0 L (2-4) % Baso % (Auto) 1.0 (0-2) % Neut # (Auto) 1400 L (7979-4411) /uL Lymph # (Auto) 1200 (4570-2817) /uL [place] # (Auto) 200 (0-900) /uL Eos # (Auto) 0 (0-450) /uL Baso # (Auto) 0 (0-100) /uL Sodium (137-145) mmol/L Potassium (3.4-5.1) mmol/L Chloride (98-107) mmol/L Carbon Dioxide (22-32) mmol/L BUN (9-20) mg/dL Creatinine (0.66-1.25) mg/dL Estimated GFR (>60) mL/min BUN/Creatinine Ratio (6-22) Glucose (80-110) mg/dL Calcium (8.4-10.2) mg/dL Phosphorus (2.3-3.7) mg/dL Magnesium (1.6-2.3) mg/dL Total Bilirubin (0.2-1.3) mg/dL Conjugated Bilirubin (0.0-0.3) md/dL Unconjugated Bilirubin (0.0-1.1) mg/dL AST (17-59) IU/L ALT (<50) IU/L Alkaline Phosphatase (38-126) U/L Total Protein (6.3-8.2) g/dL Albumin (3.5-5.0) g/dL Globulin (1.7-4.1) g/dL Albumin/Globulin Ratio (1.0-2.8) Lipase (23-300) U/L TSH 1.17 (0.47-4.68) uIU/mL Ur Bilirubin Confirm (Negative) Urine RBC (0-5/HPF) Urine WBC (0-5/HPF) Ur Squamous Epith Cells (0-5/HPF) Amorphous Sediment Urine Bacteria (None) Hyaline Casts (None) Urine Mucus (Negative) Ur Culture Indicated? Salicylates < 1.0 (<20) mg/dL U Opiates 300ng/mL cut (Negative) Ur Oxycodone Screen (Negative) Urine Methadone Screen (Negative) Acetaminophen < 10 L (10-30) ug/mL Ur Barbiturates Screen (Negative) U Tricyclic Antidepress (Negative) Ur Phencyclidine Scrn (Negative) Ur Amphetamines Screen (Negative) U Methamphetamines Scrn (Negative) Ur MDMA Scrn (Ecstasy) (Negative) U Benzodiazepines Scrn (Negative) Urine Cocaine Screen (Negative) U Marijuana (THC) Screen (Negative) Ethyl Alcohol ( - 10) mg/dL SARS-CoV-2 (PCR) (Negative) 04/12/21 04/12/21 04/12/21 Range/Units 15:40 15:40 16:30 WBC (4.5-11.0) X10^3/uL RBC (4.5-5.9) X10^6/uL Hgb (13.5-17.5) g/dL Hct (41-53) % MCV (80-100) fL MCH (26-34) PG MCHC (30-36) % RDW (11.6-14.8) % Plt Count (150-400) X10^3/uL Neut % (Auto) (50-75) % Lymph % (Auto) (25-40) % [place] % (Auto) (3-14) % Eos % (Auto) (2-4) % Baso % (Auto) (0-2) % Neut # (Auto) (2200-6623) /uL Lymph # (Auto) (5454-2743) /uL [place] # (Auto) (0-900) /uL Eos # (Auto) (0-450) /uL Baso # (Auto) (0-100) /uL Sodium 139 Cancelled (137-145) mmol/L Potassium 4.0 Cancelled (3.4-5.1) mmol/L Chloride 99 Cancelled (98-107) mmol/L Carbon Dioxide 22 Cancelled (22-32) mmol/L BUN 14 Cancelled (9-20) mg/dL Creatinine 0.73 Cancelled (0.66-1.25) mg/dL Estimated GFR > 60.0 Cancelled (>60) mL/min BUN/Creatinine Ratio 19.2 Cancelled (6-22) Glucose 115 H Cancelled (80-110) mg/dL Calcium 9.8 Cancelled (8.4-10.2) mg/dL Phosphorus 3.5 (2.3-3.7) mg/dL Magnesium 1.1 L (1.6-2.3) mg/dL Total Bilirubin 2.2 H 2.2 H (0.2-1.3) mg/dL Conjugated Bilirubin 0.0 (0.0-0.3) md/dL Unconjugated Bilirubin 1.3 H (0.0-1.1) mg/dL AST 216 H 219 H (17-59) IU/L ALT 52 H 54 H (<50) IU/L Alkaline Phosphatase 245 H 231 H (38-126) U/L Total Protein 7.5 7.5 (6.3-8.2) g/dL Albumin 4.1 4.0 (3.5-5.0) g/dL Globulin 3.4 3.5 (1.7-4.1) g/dL Albumin/Globulin Ratio 1.2 1.1 (1.0-2.8) Lipase 69 (23-300) U/L TSH (0.47-4.68) uIU/mL Ur Bilirubin Confirm (Negative) Urine RBC (0-5/HPF) Urine WBC (0-5/HPF) Ur Squamous Epith Cells (0-5/HPF) Amorphous Sediment Urine Bacteria (None) Hyaline Casts (None) Urine Mucus (Negative) Ur Culture Indicated? Salicylates (<20) mg/dL U Opiates 300ng/mL cut (Negative) Ur Oxycodone Screen (Negative) Urine Methadone Screen (Negative) Acetaminophen (10-30) ug/mL Ur Barbiturates Screen (Negative) U Tricyclic Antidepress (Negative) Ur Phencyclidine Scrn (Negative) Ur Amphetamines Screen (Negative) U Methamphetamines Scrn (Negative) Ur MDMA Scrn (Ecstasy) (Negative) U Benzodiazepines Scrn (Negative) Urine Cocaine Screen (Negative) U Marijuana (THC) Screen (Negative) Ethyl Alcohol 154 H Cancelled ( - 10) mg/dL SARS-CoV-2 (PCR) Negative (Negative) 04/12/21 04/12/21 04/12/21 Range/Units 18:10 18:10 18:10 WBC (4.5-11.0) X10^3/uL RBC (4.5-5.9) X10^6/uL Hgb (13.5-17.5) g/dL Hct (41-53) % MCV (80-100) fL MCH (26-34) PG MCHC (30-36) % RDW (11.6-14.8) % Plt Count (150-400) X10^3/uL Neut % (Auto) (50-75) % Lymph % (Auto) (25-40) % [place] % (Auto) (3-14) % Eos % (Auto) (2-4) % Baso % (Auto) (0-2) % Neut # (Auto) (3084-1726) /uL Lymph # (Auto) (7406-0547) /uL [place] # (Auto) (0-900) /uL Eos # (Auto) (0-450) /uL Baso # (Auto) (0-100) /uL Sodium (137-145) mmol/L Potassium (3.4-5.1) mmol/L Chloride (98-107) mmol/L Carbon Dioxide (22-32) mmol/L BUN (9-20) mg/dL Creatinine (0.66-1.25) mg/dL Estimated GFR (>60) mL/min BUN/Creatinine Ratio (6-22) Glucose (80-110) mg/dL Calcium (8.4-10.2) mg/dL Phosphorus (2.3-3.7) mg/dL Magnesium (1.6-2.3) mg/dL Total Bilirubin (0.2-1.3) mg/dL Conjugated Bilirubin (0.0-0.3) md/dL Unconjugated Bilirubin (0.0-1.1) mg/dL AST (17-59) IU/L ALT (<50) IU/L Alkaline Phosphatase (38-126) U/L Total Protein (6.3-8.2) g/dL Albumin (3.5-5.0) g/dL Globulin (1.7-4.1) g/dL Albumin/Globulin Ratio (1.0-2.8) Lipase (23-300) U/L TSH (0.47-4.68) uIU/mL Ur Bilirubin Confirm Positive H (Negative) Urine RBC None seen (0-5/HPF) Urine WBC 1-5/hpf (0-5/HPF) Ur Squamous Epith Cells 0-1 /hpf (0-5/HPF) Amorphous Sediment 1+ Urine Bacteria Occasional (0-1) (None) Hyaline Casts 1-5/lpf (None) Urine Mucus 2+ H (Negative) Ur Culture Indicated? Specimen cultured Salicylates (<20) mg/dL U Opiates 300ng/mL cut Negative (Negative) Ur Oxycodone Screen Negative (Negative) Urine Methadone Screen Negative (Negative) Acetaminophen (10-30) ug/mL Ur Barbiturates Screen Negative (Negative) U Tricyclic Antidepress Negative (Negative) Ur Phencyclidine Scrn Negative (Negative) Ur Amphetamines Screen Negative (Negative) U Methamphetamines Scrn Negative (Negative) Ur MDMA Scrn (Ecstasy) Negative (Negative) U Benzodiazepines Scrn Negative (Negative) Urine Cocaine Screen Negative (Negative) U Marijuana (THC) Screen Negative (Negative) Ethyl Alcohol ( - 10) mg/dL SARS-CoV-2 (PCR) (Negative) Urine Dip Bedside Urine Glucose Negative Bedside Urine Bilirubin ++ 2 Bedside Urine Ketone +++ 80 Urine Specific [place] 1.020 Bedside Urine Occult Blood - Negative Bedside Urine pH 7.0 Bedside Urine Protein + 30 Bedside Urine Urobilinogen 2+ 4mg Bedside Urine Nitrite - Negative Bedside Urine Leukocytes +/- 15 Esterase Discharge Plan Departure Patient Disposition: Released, Other Clinical Impression: Alcoholism Instructions: DI for Alcohol Use Disorder Activity Restrictions/Additional Instructions: *You have been diagnosed with alcoholism and have gained admission to an inpatient detox center at [facility]. Please go there, and please stop drinking, it is damaging your body. *What to do: *Please continue to take your regular medications as directed. [ ] New medication prescriptions sent to your pharmacy: [ ] [ ] New medication written as a paper prescription [ x] No new medications given *Please follow up with your primary care provider in 2-3 days, call for an ap pointment. Let them know you were seen in the Emergency Department and that we ask that you be seen in follow up. We will electronically transmit a record of today's note if your PCP is in our system *If you do not have a primary care provider please contact the [facility] Resource line at [phone]. They will ask some questions about your medical history and help get you set up with a doctor in the community. *Return to Emergency Department if you should have any new, worsening or co ncerning symptoms, such as [fever greater than 101F, chills, worsening pain, persistent vomiting or other bothersome symptoms] Prescriptions: No Action multivitamin [Daily Multi-Vitamin] Tablet 1 tab PO QAM RF: 0 vitamin B complex Tablet 1 tab PO DAILY RF: 0 aspirin [Adult Low Dose Aspirin] 81 mg tablet,delayed release (DR/EC) 81 mg PO DAILY RF: 0 cholecalciferol (vitamin D3) 25 mcg (1,000 unit) capsule 4,000 unit PO DAILY RF: 0 omeprazole 20 mg capsule,delayed release(DR/EC) 20 mg PO QAM RF: 0 tamsulosin [Flomax] 0.4 mg capsule 0.4 mg PO QPM Qty: 0 RF: 0 trazodone 100 mg tablet 100 mg PO BEDTIME PRN (Reason: Insomnia) Qty: 30 RF: 5 testosterone cypionate 200 mg/mL oil 200 mg IM Q2W RF: 0 gabapentin 600 mg tablet 600 mg PO TID PRN (Reason: Back Pain) RF: 0 lorazepam [Ativan] 1 mg tablet See Rx Instructions .ROUTE .COMPLEX Qty: 10 RF: 0 testosterone cypionate 200 mg/mL oil 200 mg IM Q3W RF: 0 Referrals: Maria Teresa Talley PA-C [Primary Care Provider] -
[2021-04-12 17:19] LABS: TSH w/ Reflex to FT4 1.17 uIU/mL (0.47-4.68)
[2021-04-12] MEDS: MULTIVITAMIN 1 TABLET 1 TAB PO (17:20)
[2021-04-12] MEDS: PHENobarbital 65 MG/ML VIAL 260 MG IV (17:20)
[2021-04-12] MEDS: SODIUM CHLORIDE 0.9% 1,000 ML 1000 ML IV (17:20)
[2021-04-12 17:27] LABS: Alanine Aminotransferase 54 IU/L (<50); Albumin Globulin Ratio 1.1 (1.0-2.8); Alkaline Phosphatase 231 U/L (38-126); Aspartate Aminotransferase 219 IU/L (17-59); Bilirubin Total 2.2 mg/dL (0.2-1.3); Bilirubin Unconjugated 1.3 mg/dL (0.0-1.1); Globulin 3.5 g/dL (1.7-4.1); HEMOLYSIS 21 (0-50); Lipase 69 U/L (23-300); Magnesium 1.1 mg/dL (1.6-2.3); Phosphorous 3.5 mg/dL (2.3-3.7); Total Protein 7.5 g/dL (6.3-8.2)
[2021-04-12] MEDS: LORazepam 2 MG/ML INJ IV (18:19)
[2021-04-12 18:25] LABS: UR Morphine/Opiate cutoff 300 Negative (Negative); Ur Creatinine Normal (Normal); Ur Specific Gravity Normal (Normal); Urine Amphetamines Negative (Negative); Urine Barbiturates Negative (Negative); Urine Benzodiazepines Negative (Negative); Urine Cocaine Negative (Negative); Urine MDMA Negative (Negative); Urine Methadone Negative (Negative); Urine Methamphetamines Negative (Negative); Urine Oxycodone Negative (Negative); Urine Phencyclidine Negative (Negative); Urine Tetrahydrocannabinol Negative (Negative); Urine Tricyclic Antidepressant Negative (Negative); Urine pH Normal (Normal)
[2021-04-12 18:34] LABS: Ictotest Urine Positive (Negative)
[2021-04-12 18:41] LABS: RBC Urine None Seen (0-5/HPF)
[2021-04-12 18:42] LABS: Amorphous Sediment Urine 1+; Bacteria Urine Occasional (0-1); Hyaline Casts Urine 1-5/LPF; Squamous Epithelial Cell Urine 0-1 /HPF (0-5/HPF); WBC Urine 1-5/HPF (0-5/HPF)
[2021-04-12 18:44] LABS: Culture Indicated Urine Specimen Cultured; Mucus Urine 2+ (Negative)
--- NOTE | 2021-04-12 19:16 | CM.SWNOTE ---
RADIOLOGY EQUIPMENT SERVICER Note RADIOLOGY EQUIPMENT SERVICER calls [facility] and it is reported that they can screen patient at 1900. RADIOLOGY EQUIPMENT SERVICER provides phone for patient to conduct intake screening with [facility] at 1900. RADIOLOGY EQUIPMENT SERVICER faxes clinical packet for review. Patient indicates his goal for detox is to get sober and stay sober. Patient endorses that he is trying to get into [facility] for inpatient because they accept his Medicare insurance. Patient was accepted at [facility], patient to transfer via [facility]'s taxi. Mary Jo Lee MSW
[2021-04-12] MEDS: METOPROLOL ER 25 MG TABLET PO (19:56)
== END 2021-04-12 20:30 | disposition home or self-care (01) ==
PROVIDERS: Emergency Medicine; Emergency Provider Nurse Practitioner Critical Care Medicine; PCP Student in an Organized Health Care Education/Training Program
DX: F10.229 Alcohol dependence with intoxication, unspecified (principal); I48.91 Unspecified atrial fibrillation; Y90.6 Blood alcohol level of 120-199 mg/100 ml; Z20.822 Contact with and (suspected) exposure to COVID-19
CPT/HCPCS: 36415; 80053; 80076; 80305; 80320; 80329; 81003; 81015; 83690; 83735; 84100; 84443; 85025; 87086; 87635; 93005; 96361; 96374; 96375; 99284; C9803; G0480; J2060; J2560

== ENCOUNTER 2021-05-05 15:47 | Emergency (ER) | payer MEDICARE, OTHER, SELFPAY ==
[2021-05-05] VITALS (9 sets, daily range): BP systolic 124–153; BP diastolic 78–80; PULSE 84–104; RESP 18; TEMP 36.6; O2SAT 91–100; BMI 34.9
[2021-05-05 16:37] LABS: COVID19 -Nasal RAPID Negative (Negative)
--- NOTE | 2021-05-05 16:38 | ED.GENADULT ---
HPI - General Adult General Chief complaint: Toxicology Problem Stated complaint: Detox Time Seen by Provider: 05/05/21 16:22 Source: patient and EMS Mode of arrival: EMS Limitations: no limitations History of Present Illness HPI narrative: 65-year-old male. Well known to my self. Is a known alcoholic. Has been multiple times to detox facilities and rehab. Returns emergency department today seeking help for alcohol detox. His last drink was this morning. He is having shaking. No hallucinations. Related Data Home Medications Medication Instructions Recorded Confirmed tamsulosin 0.4 mg capsule (Flomax) 0.4 mg PO QPM #0 cap 06/23/19 04/25/21 testosterone cypionate 200 mg/mL 200 mg IM Q3W ml 06/23/19 04/25/21 intramuscular oil aspirin 81 mg tablet,delayed 81 mg PO DAILY 10/11/19 04/25/21 release (Adult Low Dose Aspirin) cholecalciferol (vitamin D3) 25 4,000 unit PO DAILY cap 10/11/19 04/25/21 mcg (1,000 unit) capsule multivitamin (Daily Multi-Vitamin) 1 tab PO QAM 10/11/19 04/25/21 omeprazole 20 mg capsule,delayed 20 mg PO QAM 10/11/19 04/25/21 release vitamin B complex 1 tab PO DAILY 10/11/19 04/25/21 gabapentin 600 mg tablet 600 mg PO TID PRN 01/03/21 04/25/21 testosterone cypionate 200 mg/mL 200 mg IM Q2W 01/03/21 04/25/21 intramuscular oil Previous Rx's Medication Instructions Recorded lorazepam 1 mg tablet (Ativan) See Rx Instructions .ROUTE 01/03/21 .COMPLEX #10 tab trazodone 100 mg tablet 100 mg PO BEDTIME PRN #30 tab 01/11/21 Allergies Allergy/AdvReac Type Severity Reaction Status Date / Time hydrochlorothiazide Allergy Severe Anaphylaxis Verified 04/25/21 09:30 [HYDROCHLOROTHIAZIDE] lisinopril [LISINOPRIL] Allergy Severe Anaphylaxis Verified 04/25/21 09:30 Review of Systems Constitutional Constitutional: Reports fever(s) Cardiovascular Cardiovascular: Reports system reviewed and no additional complaints, except as documented Respiratory Respiratory: Reports system reviewed and no additional complaints, except as documented Gastrointestinal Gastrointestinal: Reports system reviewed and no additional complaints, except as documented Musculoskeletal Musculoskeletal: Reports system reviewed and no additional complaints, except as documented Integumentary/Breasts Skin/Breast: Reports system reviewed and no additional complaints, except as documented Psychiatric Psychiatric: Reports system reviewed and no additional complaints, except as documented and Reports as per HPI Hematologic/Lymphatic On Anticoagulants: No 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 Family History Unknown Cancer Social History household members: none Smoking Status: Former smoker alcohol intake: current substance use type: does not use Smoking Status: Current every day smoker alcohol intake frequency: 3 or more drinks per day Substance Use Type: does not use Exam Initial Vital Signs Initial Vital Signs: Vital Signs Temperature 97.9 F 05/05/21 15:58 Pulse Rate 91 H 05/05/21 15:58 Respiratory Rate 18 05/05/21 15:58 Blood Pressure 149/78 H 05/05/21 15:58 Pulse Oximetry 100 05/05/21 15:58 Const General: cooperative, comfortable and well developed [facility] Head: normal to inspection and normocephalic Resp Effort & Inspection: normal respiratory effort Cardio Rate: regular rate Neuro General: patient alert, patient awake, patient oriented x3 and moves all extremities Extrem General: normal to inspection and capillary refill normal Scores GCS Chi coma scale eye opening: Spontaneous [place] coma scale verbal response: Orientated [place] coma scale motor response: Obey commands [place] coma scale total score: 15 Course Orders Ordered: ED Orders 05/05/21 16:10 COVID19 -Nasal swab/Pre-Proc Stat 05/05/21 16:36 Acetaminophen Stat Complete Blood Count AUTO DIFF Stat Comprehensive Metabolic Panel Stat Ethanol (ETOH) Stat Lipase Stat Discontinued Medications Sodium Chloride (Normal Saline 0.9%) 1,000 mls @ 1,000 mls/hr IV BOLUS ONE Stop: 05/05/21 17:38 Last Admin: 05/05/21 16:56 Dose: 1,000 mls/hr Documented by: JULISSA Thiamine HCl 100 mg/ Sodium (Chloride) 101 mls @ 404 mls/hr IV NOW ONE Stop: 05/05/21 16:40 Last Infusion: 05/05/21 17:40 Dose: 0 mls/hr Documented by: Admin: 05/05/21 16:57 Dose: 404 mls/hr Documented by: JULISSA Multivitamins (Multivitamin 1 Tablet) 1 tab PO DAILY ONE Stop: 05/05/21 16:41 Last Admin: 05/05/21 16:57 Dose: 1 tab Documented by: JULISSA Phenobarbital (Phenobarbital 65 Mg/Ml Vial) 260 mg IV NOW ONE Stop: 05/05/21 16:40 Last Admin: 05/05/21 16:56 Dose: 260 mg Documented by: JULISSA Vital Signs Vital signs: Vital Signs - 8 hr 05/05/21 15:58 05/05/21 16:37 05/05/21 17:00 Temperature 97.9 F Pulse Rate 91 H 93 H 94 H Respiratory Rate 18 Blood Pressure 149/78 H Pulse Oximetry 100 99 97 05/05/21 17:30 05/05/21 17:33 Temperature Pulse Rate 86 84 Respiratory Rate Blood Pressure 124/80 Pulse Oximetry 91 94 Medical Decision Making Lab Data Lab results reviewed: Yes I reviewed the patient's lab results. Result diagrams: 05/05/21 16:36 05/05/21 16:36 Labs: Lab Results 05/05/21 05/05/21 05/05/21 Range/Units 16:10 16:36 16:36 WBC 4.4 L (4.5-11.0) X10^3/uL RBC 4.66 (4.5-5.9) X10^6/uL Hgb 14.4 (13.5-17.5) g/dL Hct 43.6 (41-53) % MCV 93.4 (80-100) fL MCH 31.0 (26-34) PG MCHC 33.2 (30-36) % RDW 19.8 H (11.6-14.8) % Plt Count 236 (150-400) X10^3/uL Neut % (Auto) 75.5 H (50-75) % Lymph % (Auto) 16.2 L (25-40) % [place] % (Auto) 6.8 (3-14) % Eos % (Auto) 0.3 L (2-4) % Baso % (Auto) 1.2 (0-2) % Neut # (Auto) 3300 (8298-3455) /uL Lymph # (Auto) 700 L (5775-6867) /uL [place] # (Auto) 300 (0-900) /uL Eos # (Auto) 0 (0-450) /uL Baso # (Auto) 100 (0-100) /uL Sodium 141 (137-145) mmol/L Potassium 4.6 (3.4-5.1) mmol/L Chloride 98 (98-107) mmol/L Carbon Dioxide 21 L (22-32) mmol/L BUN 17 (9-20) mg/dL Creatinine 0.90 (0.66-1.25) mg/dL Estimated GFR > 60.0 (>60) mL/min BUN/Creatinine Ratio 18.9 (6-22) Glucose 118 H (80-110) mg/dL Calcium 9.6 (8.4-10.2) mg/dL Total Bilirubin 1.0 (0.2-1.3) mg/dL AST 76 H (17-59) IU/L ALT 39 (<50) IU/L Alkaline Phosphatase 95 (38-126) U/L Total Protein 7.9 (6.3-8.2) g/dL Albumin 4.3 (3.5-5.0) g/dL Globulin 3.6 (1.7-4.1) g/dL Albumin/Globulin Ratio 1.2 (1.0-2.8) Lipase (23-300) U/L Acetaminophen < 10 L (10-30) ug/mL Ethyl Alcohol 209 H ( - 10) mg/dL SARS-CoV-2 (PCR) Negative (Negative) 05/05/21 Range/Units 16:36 WBC (4.5-11.0) X10^3/uL RBC (4.5-5.9) X10^6/uL Hgb (13.5-17.5) g/dL Hct (41-53) % MCV (80-100) fL MCH (26-34) PG MCHC (30-36) % RDW (11.6-14.8) % Plt Count (150-400) X10^3/uL Neut % (Auto) (50-75) % Lymph % (Auto) (25-40) % [place] % (Auto) (3-14) % Eos % (Auto) (2-4) % Baso % (Auto) (0-2) % Neut # (Auto) (5355-4280) /uL Lymph # (Auto) (0497-3968) /uL [place] # (Auto) (0-900) /uL Eos # (Auto) (0-450) /uL Baso # (Auto) (0-100) /uL Sodium (137-145) mmol/L Potassium (3.4-5.1) mmol/L Chloride (98-107) mmol/L Carbon Dioxide (22-32) mmol/L BUN (9-20) mg/dL Creatinine (0.66-1.25) mg/dL Estimated GFR (>60) mL/min BUN/Creatinine Ratio (6-22) Glucose (80-110) mg/dL Calcium (8.4-10.2) mg/dL Total Bilirubin (0.2-1.3) mg/dL AST (17-59) IU/L ALT (<50) IU/L Alkaline Phosphatase (38-126) U/L Total Protein (6.3-8.2) g/dL Albumin (3.5-5.0) g/dL Globulin (1.7-4.1) g/dL Albumin/Globulin Ratio (1.0-2.8) Lipase 52 (23-300) U/L Acetaminophen (10-30) ug/mL Ethyl Alcohol ( - 10) mg/dL SARS-CoV-2 (PCR) (Negative) Point of Care Testing Glucose POC 61 Point of care testing: Point of Care Testing Glucose POC 61 MDM Narrative Medical decision making narrative: Patient is alert oriented x3. Has a GCS of 15. Alcohol level is elevated. Had a discussion with the patient. He would like to be discharged home. He understands the risks and benefits of this and I do feel that he has the capacity to make this decision. No signs of overt alcohol withdrawal. He was given strict return precautions. He expressed understanding and agreement. Discharge Plan Departure Patient Disposition: Home Clinical Impression: Alcoholic intoxication Instructions: DI for Alcohol Use Disorder Activity Restrictions/Additional Instructions: You opted to be discharged home today. I do recommend that you contact your primary doctor for a follow-up. No driving while your intoxicated. Return to the emergency department for any new or worsening symptoms Prescriptions: No Action multivitamin [Daily Multi-Vitamin] Tablet 1 tab PO QAM 0RF vitamin B complex Tablet 1 tab PO DAILY 0RF aspirin [Adult Low Dose Aspirin] 81 mg tablet,delayed release (DR/EC) 81 mg PO DAILY 0RF Label Comments: shoulde be but not currently cholecalciferol (vitamin D3) 25 mcg (1,000 unit) capsule 4,000 unit PO DAILY 0RF omeprazole 20 mg capsule,delayed release(DR/EC) 20 mg PO QAM 0RF tamsulosin [Flomax] 0.4 mg capsule 0.4 mg PO QPM Qty: 0 0RF trazodone 100 mg tablet 100 mg PO BEDTIME PRN (Reason: Insomnia) Qty: 30 5RF Rx Instructions: Continue 100 mg by mouth at bedtime testosterone cypionate 200 mg/mL oil 200 mg IM Q2W 0RF Label Comments: inject 1 milliliter intramuscularly every 2 weeks gabapentin 600 mg tablet 600 mg PO TID PRN (Reason: Back Pain) 0RF lorazepam [Ativan] 1 mg tablet See Rx Instructions .ROUTE .COMPLEX Qty: 10 0RF Rx Instructions: 1 mg orally as needed ;QID x 24 hrs, TID x 24hrs, BID x 24 hrs, daily x ! testosterone cypionate 200 mg/mL oil 200 mg IM Q3W 0RF Label Comments: inject 1 milliliter intramuscularly every 2 weeks Referrals: Maria Teresa Talley PA-C [Primary Care Provider] -
[2021-05-05 16:50] LABS: Add Manual Diff / Slide Review NO; Basophils Absolute Auto 100 /uL (0-100); Basophils Percent Auto 1.2 % (0-2); Eosinophils Absolute Auto 0 /uL (0-450); Eosinophils Percent Auto 0.3 % (2-4); Hematocrit 43.6 % (41-53); Hemoglobin 14.4 g/dL (13.5-17.5); Lymphocytes Absolute Auto 700 /uL (1100-4500); Lymphocytes Percent Auto 16.2 % (25-40); Mean Corpuscular HGB Conc 33.2 % (30-36); Mean Corpuscular Volume 93.4 fL (80-100); Monocytes Absolute Auto 300 /uL (0-900); Monocytes Percent Auto 6.8 % (3-14); Neutrophils Absolute Auto 3300 /uL (1500-7000); Neutrophils Percent Auto 75.5 % (50-75); Platelet Count 236 X10^3/uL (150-400); Red Blood Cell Count 4.66 X10^6/uL (4.5-5.9); Red Cell Distribution Width 19.8 % (11.6-14.8); White Blood Cell Count 4.4 X10^3/uL (4.5-11.0)
[2021-05-05] MEDS: PHENobarbital 65 MG/ML VIAL 260 MG IV (16:56)
[2021-05-05] MEDS: SODIUM CHLORIDE 0.9% 1,000 ML 1000 ML IV (16:56)
[2021-05-05] MEDS: THIAMINE 100 MG in SODIUM CHLORIDE 0.9% 100 ML 404 ML IV (16:57)
[2021-05-05] MEDS: MULTIVITAMIN 1 TABLET 1 TAB PO (16:57)
[2021-05-05 17:01] LABS: Acetaminophen < 10 ug/mL (10-30); Alanine Aminotransferase 39 IU/L (<50); Albumin 4.3 g/dL (3.5-5.0); Albumin Globulin Ratio 1.2 (1.0-2.8); Alkaline Phosphatase 95 U/L (38-126); Aspartate Aminotransferase 76 IU/L (17-59); BUN Creatinine Ratio 18.9 (6-22); Blood Urea Nitrogen 17 mg/dL (9-20); Calcium 9.6 mg/dL (8.4-10.2); Carbon Dioxide 21 mmol/L (22-32); Chloride 98 mmol/L (98-107); Estimated Glomerular Filt Rate > 60.0 mL/min (>60); Ethanol (ETOH) 209 mg/dL; Globulin 3.6 g/dL (1.7-4.1); Glucose 118 mg/dL (80-110); HEMOLYSIS 16 (0-50); Lipase 52 U/L (23-300); Potassium 4.6 mmol/L (3.4-5.1); Sodium 141 mmol/L (137-145); Total Protein 7.9 g/dL (6.3-8.2)
== END 2021-05-05 18:52 | disposition home or self-care (01) ==
PROVIDERS: Emergency Provider Emergency Medicine; PCP Student in an Organized Health Care Education/Training Program
DX: F10.229 Alcohol dependence with intoxication, unspecified (principal); Y90.7 Blood alcohol level of 200-239 mg/100 ml; I10 Essential (primary) hypertension; F17.200 Nicotine dependence, unspecified, uncomplicated; Z20.822 Contact with and (suspected) exposure to COVID-19
CPT/HCPCS: 36415; 80053; 80320; 80329; 82962; 83690; 85025; 87635; 96361; 96365; 96375; 99284; C9803; G0480; J2560

== ENCOUNTER 2021-05-09 19:49 | Inpatient (IN) | payer MEDICARE, OTHER, SELFPAY ==
[2021-05-09] VITALS (10 sets, daily range): BP systolic 140–144; BP diastolic 65–69; PULSE 90–115; RESP 16–25; TEMP 36.6; O2SAT 92–98
--- NOTE | 2021-05-09 21:47 | ED_ITS ---
HPI - Alcohol General Chief Complaint: Toxicology Problem Stated Complaint: ETOH Time Seen by Provider: 05/09/21 20:42 Source: patient and EMS Mode of arrival: EMS Limitations: no limitations History of Present Illness HPI narrative: Patient is a 65-year-old male history of paroxysmal atrial fibrillation, renal cancer, known alcoholic, very familiar to myself and this facility. He has been to detox and rehab multiple times. He was last seen here 5 days ago, he was not evaluated by social Work at that time. He has been evaluated by social Work previously last time was April 12. It was attempted to be admitted to rehab that time but unsuccessful. Patient also has a history of renal cancer he had an ablation via renal mass this week at [facility]. Patient's nephew recently and his was this week but he was unable to attend because he was drinking. Denies any suicidal homicidal ideations. He is requesting detox. Previously multiple detox centers have declined because he has been there so many times. Related Data Home Medications Medication Instructions Recorded Confirmed tamsulosin 0.4 mg capsule (Flomax) 0.4 mg PO QPM #0 cap 06/23/19 04/25/21 testosterone cypionate 200 mg/mL 200 mg IM Q3W ml 06/23/19 04/25/21 intramuscular oil aspirin 81 mg tablet,delayed 81 mg PO DAILY 10/11/19 04/25/21 release (Adult Low Dose Aspirin) cholecalciferol (vitamin D3) 25 4,000 unit PO DAILY cap 10/11/19 04/25/21 mcg (1,000 unit) capsule multivitamin (Daily Multi-Vitamin) 1 tab PO QAM 10/11/19 04/25/21 omeprazole 20 mg capsule,delayed 20 mg PO QAM 10/11/19 04/25/21 release vitamin B complex 1 tab PO DAILY 10/11/19 04/25/21 gabapentin 600 mg tablet 600 mg PO TID PRN 01/03/21 04/25/21 testosterone cypionate 200 mg/mL 200 mg IM Q2W 01/03/21 04/25/21 intramuscular oil Previous Rx's Medication Instructions Recorded lorazepam 1 mg tablet (Ativan) See Rx Instructions .ROUTE 01/03/21 .COMPLEX #10 tab trazodone 100 mg tablet 100 mg PO BEDTIME PRN #30 tab 01/11/21 Allergies Allergy/AdvReac Type Severity Reaction Status Date / Time hydrochlorothiazide Allergy Severe Anaphylaxis Verified 04/25/21 09:30 [HYDROCHLOROTHIAZIDE] lisinopril [LISINOPRIL] Allergy Severe Anaphylaxis Verified 04/25/21 09:30 Review of Systems Review of Systems Narrative: GENERAL: Denies chills, fatigue, malaise, fever, sweats, travel HEENT: Denies sinus pain, ear pain, sore throat, difficulty swallowing, neck pain RESPIRATORY: Denies dyspnea, cough, wheezing, hemoptysis, sputum. CARDIOVASCULAR: Denies chest pain, palpitations, orthopnea, edema GASTROINTESTINAL: Denies nausea, vomiting, abdominal pain, diarrhea, constipation, melena. : Denies dysuria, frequency, incontinence, hematuria, urinary retention, flank pain. MUSCULOSKELETAL: Denies weakness, joint pain, or bony pain SKIN: No rash, no erythema, no pruritus NEUROLOGIC: Denies weakness, dizziness, headache, numbness, change in speech, confusion PSYCHIATRIC: No concerning psychosocial issues. 12 point review of systems is negative except for those stated above and HPI 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 Family History Unknown Cancer Social History household members: none Smoking Status: Former smoker alcohol intake: current substance use type: does not use Smoking Status: Former smoker alcohol intake frequency: 0-2 drinks per day Alcohol type: hard liquor Substance Use Type: does not use Exam Initial Vital Signs Initial Vital Signs: Vital Signs Temperature 98 F 05/09/21 19:57 Pulse Rate 96 H 05/09/21 19:57 Respiratory Rate 20 05/09/21 19:57 Blood Pressure 144/69 H 05/09/21 19:57 Pulse Oximetry 95 05/09/21 19:57 GENERAL: Alert chronically ill 65-year-old HEENT: Head atraumatic,EOMI, pupils reactive, face symmetric, moist mucous membranes CARDIOVASCULAR: Regular rate and rhythm without murmurs, rubs or gallops. RESPIRATORY: Breath sounds equal bilaterally, no wheezes rales or rhonchi. EXTREMITIES: Normal range of motion, no clubbing or edema. Neurovascularly intact NEUROLOGICAL: Alert and oriented x4. SKIN: Warm, dry, no laceration, no petechiae, no rashes or lesions. Course Orders Ordered: ED Orders 05/09/21 21:49 Urine Drug Screen, Rapid Stat 05/09/21 22:00 Complete Blood Count AUTO DIFF Stat Comprehensive Metabolic Panel Stat Ethanol (ETOH) Stat Hepatic (Liver) Panel Stat Lipase Stat Magnesium Stat Troponin & CK Cardiac Panel Stat 05/09/21 22:45 Consult to SCABBLER - Dry Transfer Worker Stat 05/10/21 00:57 BNP [NT-proBNP (BNP-Adult 18+)] Stat 05/10/21 01:05 COVID19 - ADMIT ([employer]ICATION[employer] swab/PCR) Stat Acetaminophen (Acetaminophen 325 Mg Tablet) 650 mg PO Q6HR PRN PRN Reason: Fever/Mild Pain (1-3) Enoxaparin Sodium (Enoxaparin 40 Mg/0.4 Ml Syringe) 40 mg SUBCUT DAILY [facility] Folic Acid (Folic Acid 1 Mg Tablet) 1 mg PO DAILY [facility] Magnesium Sulfate (Magnesium Sulfate) 4 gm in 100 mls @ 25 mls/hr IV NOW ONE Stop: 05/10/21 05:20 Metoprolol Tartrate (Metoprolol Ir 50 Mg Tablet) 50 mg PO BID [facility] Multivitamins (Multivitamin 1 Tablet) 1 tab PO DAILY [facility] Ondansetron HCl (Ondansetron 4 Mg/2 Ml Inj) 4 mg IV Q8HR PRN PRN Reason: Nausea And Vomiting Phenobarbital (Phenobarbital 65 Mg/Ml Vial) 130 mg IV Q1H PRN; Protocol PRN Reason: Alcohol Withdrawal Thiamine HCl (Thiamine 100 Mg Tablet) 100 mg PO DAILY SARAH Stop: 05/13/21 09:01 Trimethoprim/Sulfamethoxazole (Trimeth/Sulfa 160/800 (Ds) Tablet) 1 tab PO BID [facility] Discontinued Medications Diltiazem HCl (Diltiazem 5 Mg/Ml Sdv) 10 mg IV NOW ONE Stop: 05/09/21 21:49 Last Admin: 05/09/21 22:03 Dose: Not Given Documented by: RLAZANI Sodium Chloride (Normal Saline 0.9%) 1,000 mls @ 1,000 mls/hr IV BOLUS ONE Stop: 05/09/21 22:47 Last Admin: 05/09/21 22:03 Dose: Not Given Documented by: JULISSA Ondansetron HCl (Ondansetron 4 Mg/2 Ml Inj) 4 mg IV NOW ONE Stop: 05/10/21 00:22 Last Admin: 05/10/21 01:01 Dose: 4 mg Documented by: JEANE Phenobarbital (Phenobarbital 65 Mg/Ml Vial) 260 mg IV NOW ONE Stop: 05/09/21 22:56 Last Admin: 05/09/21 23:02 Dose: 260 mg Documented by: JEANE Phenobarbital (Phenobarbital 65 Mg/Ml Vial) 130 mg IV NOW ONE Stop: 05/10/21 01:22 Trimethoprim/Sulfamethoxazole (Trimeth/Sulfa 160/800 (Ds) Tablet) 1 tab PO BID SARAH Vital Signs Vital signs: Vital Signs - 8 hr 05/09/21 19:57 05/09/21 20:03 05/09/21 20:30 Temperature 98 F Pulse Rate 96 H 92 H 90 Respiratory Rate 20 Blood Pressure 144/69 H Pulse Oximetry 95 94 94 05/09/21 21:00 05/09/21 21:30 05/09/21 22:00 Temperature Pulse Rate 93 H 115 H 99 H Respiratory Rate 21 Blood Pressure Pulse Oximetry 94 98 96 05/09/21 22:30 05/09/21 23:00 05/09/21 23:30 Temperature Pulse Rate 111 H 106 H 104 H Respiratory Rate 25 H 16 21 Blood Pressure Pulse Oximetry 95 95 94 05/09/21 23:55 05/10/21 00:00 Temperature Pulse Rate 99 H 104 H Respiratory Rate 19 16 Blood Pressure 140/65 134/67 Pulse Oximetry 92 92 MDM - Alcohol Lab Data Result diagrams: 05/09/21 22:00 05/09/21 22:00 Labs: Lab Results 05/09/21 05/09/21 05/09/21 Range/Units 22:00 22:00 22:00 WBC 3.7 L (4.5-11.0) X10^3/uL RBC 4.43 L (4.5-5.9) X10^6/uL Hgb 13.8 (13.5-17.5) g/dL Hct 40.9 L (41-53) % MCV 92.2 (80-100) fL MCH 31.0 (26-34) PG MCHC 33.7 (30-36) % RDW 19.7 H (11.6-14.8) % Plt Count 103 L (150-400) X10^3/uL Neut % (Auto) 52.5 (50-75) % Lymph % (Auto) 35.5 (25-40) % [place] % (Auto) 10.6 (3-14) % Eos % (Auto) 0.2 L (2-4) % Baso % (Auto) 1.2 (0-2) % Neut # (Auto) 1900 (1034-7607) /uL Lymph # (Auto) 1300 (9044-8030) /uL [place] # (Auto) 400 (0-900) /uL Eos # (Auto) 0 (0-450) /uL Baso # (Auto) 0 (0-100) /uL Sodium 141 (137-145) mmol/L Potassium 3.9 (3.4-5.1) mmol/L Chloride 96 L (98-107) mmol/L Carbon Dioxide 25 (22-32) mmol/L BUN 14 (9-20) mg/dL Creatinine 0.72 (0.66-1.25) mg/dL Estimated GFR > 60.0 (>60) mL/min BUN/Creatinine Ratio 19.4 (6-22) Glucose 84 (80-110) mg/dL Calcium 9.1 (8.4-10.2) mg/dL Magnesium 1.4 L (1.6-2.3) mg/dL Total Bilirubin 1.3 (0.2-1.3) mg/dL Conjugated Bilirubin 0.0 (0.0-0.3) md/dL Unconjugated Bilirubin 0.8 (0.0-1.1) mg/dL AST 110 H (17-59) IU/L ALT 56 H (<50) IU/L Alkaline Phosphatase 128 H (38-126) U/L Total Creatine Kinase 66 (55-170) U/L CK-MB (CK-2) TNP CK-MB (CK-2) Rel Index TNP Troponin I 0.018 (0.01-0.034) ng/mL NT-Pro-B Natriuret Pep (<125) pg/mL Total Protein 7.2 (6.3-8.2) g/dL Albumin 3.7 (3.5-5.0) g/dL Globulin 3.5 (1.7-4.1) g/dL Albumin/Globulin Ratio 1.1 (1.0-2.8) Lipase 48 (23-300) U/L Ethyl Alcohol 227 H ( - 10) mg/dL SARS-CoV-2 (PCR) (Negative) 05/09/21 05/10/21 Range/Units 22:00 01:05 WBC (4.5-11.0) X10^3/uL RBC (4.5-5.9) X10^6/uL Hgb (13.5-17.5) g/dL Hct (41-53) % MCV (80-100) fL MCH (26-34) PG MCHC (30-36) % RDW (11.6-14.8) % Plt Count (150-400) X10^3/uL Neut % (Auto) (50-75) % Lymph % (Auto) (25-40) % [place] % (Auto) (3-14) % Eos % (Auto) (2-4) % Baso % (Auto) (0-2) % Neut # (Auto) (0089-5722) /uL Lymph # (Auto) (9213-5275) /uL [place] # (Auto) (0-900) /uL Eos # (Auto) (0-450) /uL Baso # (Auto) (0-100) /uL Sodium (137-145) mmol/L Potassium (3.4-5.1) mmol/L Chloride (98-107) mmol/L Carbon Dioxide (22-32) mmol/L BUN (9-20) mg/dL Creatinine (0.66-1.25) mg/dL Estimated GFR (>60) mL/min BUN/Creatinine Ratio (6-22) Glucose (80-110) mg/dL Calcium (8.4-10.2) mg/dL Magnesium (1.6-2.3) mg/dL Total Bilirubin (0.2-1.3) mg/dL Conjugated Bilirubin (0.0-0.3) md/dL Unconjugated Bilirubin (0.0-1.1) mg/dL AST (17-59) IU/L ALT (<50) IU/L Alkaline Phosphatase (38-126) U/L Total Creatine Kinase (55-170) U/L CK-MB (CK-2) CK-MB (CK-2) Rel Index Troponin I (0.01-0.034) ng/mL NT-Pro-B Natriuret Pep 125 H (<125) pg/mL Total Protein (6.3-8.2) g/dL Albumin (3.5-5.0) g/dL Globulin (1.7-4.1) g/dL Albumin/Globulin Ratio (1.0-2.8) Lipase (23-300) U/L Ethyl Alcohol ( - 10) mg/dL SARS-CoV-2 (PCR) Negative (Negative) ECG Data Interpretation: EKG 1. Sinus rhythm rate 101 FL interval 224 QRS [address] changes EKG 2. Sinus rhythm rate 99 no changes EKG 3. Atrial fibrillation rate 133 similar to prior in March EKG 4. Atrial fibrillation rate of [address] changes MDM Narrative Medical decision making narrative: Patient had a brief episode of atrial fibrillation with RVR her rate in the 160s however by the time EKG was done he was back in sinus rhythm after IV was started. Patient continued to have episodes of atrial fibrillation. He does take aspirin but certainly not at candidate for anticoagulation he states that when he drinks he falls frequently. He has had no workup of atrial fibrillation this is likely alcohol induced but he has had multiple episodes in the emergency department of it. He is given phenobarbital in the ED to help with some withdrawal like symptoms. Dr. Hoff, updated patient symptoms test results probable need for cardiac workup and detox. In ED to be evaluated. Discharge Plan Departure Patient Disposition: Admitted As Inpatient Clinical Impression: Atrial fibrillation, Alcohol intoxication Admit Date/Time: 05/10/21 01:17 Admit Provider: Yousif Hoff
[2021-05-09 22:12] LABS: Add Manual Diff / Slide Review NO; Basophils Absolute Auto 0 /uL (0-100); Basophils Percent Auto 1.2 % (0-2); Eosinophils Absolute Auto 0 /uL (0-450); Eosinophils Percent Auto 0.2 % (2-4); Hematocrit 40.9 % (41-53); Hemoglobin 13.8 g/dL (13.5-17.5); Lymphocytes Absolute Auto 1300 /uL (1100-4500); Lymphocytes Percent Auto 35.5 % (25-40); Mean Corpuscular HGB Conc 33.7 % (30-36); Mean Corpuscular Volume 92.2 fL (80-100); Monocytes Absolute Auto 400 /uL (0-900); Monocytes Percent Auto 10.6 % (3-14); Neutrophils Absolute Auto 1900 /uL (1500-7000); Neutrophils Percent Auto 52.5 % (50-75); Platelet Count 103 X10^3/uL (150-400); Red Blood Cell Count 4.43 X10^6/uL (4.5-5.9); Red Cell Distribution Width 19.7 % (11.6-14.8); White Blood Cell Count 3.7 X10^3/uL (4.5-11.0)
[2021-05-09 22:20] LABS: Creatine Kinase 66 U/L (55-170)
[2021-05-09 22:33] LABS: Troponin I 0.018 ng/mL (0.01-0.034)
[2021-05-09 22:43] LABS: Alanine Aminotransferase 56 IU/L (<50); Albumin 3.7 g/dL (3.5-5.0); Albumin Globulin Ratio 1.1 (1.0-2.8); Alkaline Phosphatase 128 U/L (38-126); Aspartate Aminotransferase 110 IU/L (17-59); BUN Creatinine Ratio 19.4 (6-22); Bilirubin Total 1.3 mg/dL (0.2-1.3); Bilirubin Unconjugated 0.8 mg/dL (0.0-1.1); Blood Urea Nitrogen 14 mg/dL (9-20); Calcium 9.1 mg/dL (8.4-10.2); Carbon Dioxide 25 mmol/L (22-32); Chloride 96 mmol/L (98-107); Estimated Glomerular Filt Rate > 60.0 mL/min (>60); Globulin 3.5 g/dL (1.7-4.1); Glucose 84 mg/dL (80-110); HEMOLYSIS < 15 (0-50); Lipase 48 U/L (23-300); Magnesium 1.4 mg/dL (1.6-2.3); Potassium 3.9 mmol/L (3.4-5.1); Sodium 141 mmol/L (137-145); Total Protein 7.2 g/dL (6.3-8.2)
[2021-05-09 22:51] LABS: Ethanol (ETOH) 227 mg/dL
[2021-05-09] MEDS: PHENobarbital 65 MG/ML VIAL 260 MG IV (23:02)
[2021-05-10] VITALS (9 sets, daily range): BP systolic 115–137; BP diastolic 67–79; PULSE 65–132; RESP 16–20; TEMP 36.5–37.1; O2SAT 92–97; BMI 34.9
[2021-05-10] MEDS: ONDANSETRON 4 MG/2 ML INJ IV ×2 (01:01→05:18)
[2021-05-10 01:19] LABS: NT-proBNP (BNP-Adult 18+) 125 pg/mL (<125)
--- NOTE | 2021-05-10 02:05 | P.HP_ITS ---
History of Present Illness History of Present Illness Date Patient Seen: 05/10/21 Time Patient Seen: 01:30 Chief complaint: ETOH Narrative: Mr. Webster is a 65M with H alcohol abuse/dependence, HTN, documented cirrhosis, paroxysmal atrial fibrillation, left renal mass with recent ablation who is presenting requesting detox from alcohol. He states he has had a long history of alcohol use. He has been to rehab many times. He continues to drink significantly, he states 750cc of alcohol daily. His last drink was within 24 hours. He has had withdrawal before, no seizures, has had DTs. He was feeling tremulous before receiving phenobarb in the ED. HE notes he has been told he has atrial fibrillation, he has had frequent falls, and has not been prescribed anticoagulation. He has been prescribed metoprolol, which he took, but has not been taking recently as he did not refill his prescription. For the last two days he has had swelling and pain on his left upper back. No fevers/chills. No trauma. No nausea/vomiting, diarrhea, abdominal pain. No dysuria In the ED, he was initially noted to be mildly tachycardic with heart rate in the 90s. He was observed on telemetry to have intermittent periods of tachycardia with rate in the 130s-140s. EKG notable for atrial fibrillation. Labs notable for WBC 3.7, platelets 103, creatinine 0.72, magnesium 1.4, ast 110 , alt 56, alk phos 128. EtOH level 227. He was given phenobarbital and admitted for further treatment. Family history: Sister - alcohol abuse 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 Family & Social History Family History Unknown Cancer Social History: household members none Safety & Behavioral: Feels Safe in Current Yes Environment Suicidal Ideation Description None Suicide Plan Description No Plan Tobacco & Substance use: Smoking Status Former smoker alcohol intake current alcohol intake frequency 0-2 drinks per day Substance Use Type does not use Meds Home Medications and Allergies Home Medications Medication Instructions Recorded Confirmed Type tamsulosin 0.4 mg capsule (Flomax) 0.4 mg PO QPM #0 cap 06/23/19 04/25/21 History testosterone cypionate 200 mg/mL 200 mg IM Q3W ml 06/23/19 04/25/21 History intramuscular oil aspirin 81 mg tablet,delayed 81 mg PO DAILY 10/11/19 04/25/21 History release (Adult Low Dose Aspirin) cholecalciferol (vitamin D3) 25 4,000 unit PO DAILY cap 10/11/19 04/25/21 History mcg (1,000 unit) capsule multivitamin (Daily Multi-Vitamin) 1 tab PO QAM 10/11/19 04/25/21 History omeprazole 20 mg capsule,delayed 20 mg PO QAM 10/11/19 04/25/21 History release vitamin B complex 1 tab PO DAILY 10/11/19 04/25/21 History gabapentin 600 mg tablet 600 mg PO TID PRN 01/03/21 04/25/21 History lorazepam 1 mg tablet (Ativan) See Rx Instructions .ROUTE 01/03/21 04/25/21 Rx .COMPLEX #10 tab testosterone cypionate 200 mg/mL 200 mg IM Q2W 01/03/21 04/25/21 History intramuscular oil trazodone 100 mg tablet 100 mg PO BEDTIME PRN #30 tab 01/11/21 04/25/21 Rx Allergies Allergy/AdvReac Type Severity Reaction Status Date / Time hydrochlorothiazide Allergy Severe Anaphylaxis Verified 04/25/21 09:30 [HYDROCHLOROTHIAZIDE] lisinopril [LISINOPRIL] Allergy Severe Anaphylaxis Verified 04/25/21 09:30 Review of Systems Review of Systems Narrative: 14 systems reviewed and negative aside from what is noted in HPI Exam Vital Signs (past 8 hours): - 05/09/21 19:57 05/09/21 20:03 05/09/21 20:30 Temperature 98 F Pulse Rate 96 H 92 H 90 Respiratory Rate 20 Blood Pressure 144/69 H Pulse Oximetry 95 94 94 05/09/21 21:00 05/09/21 21:30 05/09/21 22:00 Temperature Pulse Rate 93 H 115 H 99 H Respiratory Rate 21 Blood Pressure Pulse Oximetry 94 98 96 05/09/21 22:30 05/09/21 23:00 05/09/21 23:30 Temperature Pulse Rate 111 H 106 H 104 H Respiratory Rate 25 H 16 21 Blood Pressure Pulse Oximetry 95 95 94 05/09/21 23:55 05/10/21 00:00 Temperature Pulse Rate 99 H 104 H Respiratory Rate 19 16 Blood Pressure 140/65 134/67 Pulse Oximetry 92 92 Oxygen Delivery Method Room Air Narrative Exam Narrative: GEN: chronically ill appearing, no acute distress HEENT: moist mucous membranes, PERRL NECK: trachea midline, no JVD CV: irregular, tachycardic PULM: clear bilaterally, no wheezes, rhonchi, rales ABD: soft, nontender, nondistended, no organomegaly EXT: warm and well perfused, chronic venous stasis changes on bilateral legs BACK: fluctuant, erhythematous swelling in upper left back with purulent drainage able to be expressed NEURO: awake, alert, oriented, moving all extremities with no focal deficits PSYCH: pleasant, cooperative Objective Labs Result Diagrams: 05/09/21 22:00 05/09/21 22:00 Labs: Laboratory Results - last 24 hr 05/09/21 05/09/21 05/09/21 22:00 22:00 22:00 WBC 3.7 L RBC 4.43 L Hgb 13.8 Hct 40.9 L MCV 92.2 MCH 31.0 MCHC 33.7 RDW 19.7 H Plt Count 103 L Neut % (Auto) 52.5 Lymph % (Auto) 35.5 [place] % (Auto) 10.6 Eos % (Auto) 0.2 L Baso % (Auto) 1.2 Neut # (Auto) 1900 Lymph # (Auto) 1300 [place] # (Auto) 400 Eos # (Auto) 0 Baso # (Auto) 0 Sodium 141 Potassium 3.9 Chloride 96 L Carbon Dioxide 25 BUN 14 Creatinine 0.72 Estimated GFR > 60.0 BUN/Creatinine Ratio 19.4 Glucose 84 Calcium 9.1 Magnesium 1.4 L Total Bilirubin 1.3 Conjugated Bilirubin 0.0 Unconjugated Bilirubin 0.8 AST 110 H ALT 56 H Alkaline Phosphatase 128 H Total Creatine Kinase 66 CK-MB (CK-2) TNP CK-MB (CK-2) Rel Index TNP Troponin I 0.018 NT-Pro-B Natriuret Pep Total Protein 7.2 Albumin 3.7 Globulin 3.5 Albumin/Globulin Ratio 1.1 Lipase 48 Ethyl Alcohol 227 H 05/09/21 22:00 WBC RBC Hgb Hct MCV MCH MCHC RDW Plt Count Neut % (Auto) Lymph % (Auto) [place] % (Auto) Eos % (Auto) Baso % (Auto) Neut # (Auto) Lymph # (Auto) [place] # (Auto) Eos # (Auto) Baso # (Auto) Sodium Potassium Chloride Carbon Dioxide BUN Creatinine Estimated GFR BUN/Creatinine Ratio Glucose Calcium Magnesium Total Bilirubin Conjugated Bilirubin Unconjugated Bilirubin AST ALT Alkaline Phosphatase Total Creatine Kinase CK-MB (CK-2) CK-MB (CK-2) Rel Index Troponin I NT-Pro-B Natriuret Pep 125 H Total Protein Albumin Globulin Albumin/Globulin Ratio Lipase Ethyl Alcohol Assessment & Plan Assessment & Plan narrative: Mr. Webster is a 65M with PMH of EtOH abuse presenting with acute alcohol withdrawal requesting detox, found to have atrial fibrillation with RVR. 1. Alcohol abuse with dependence and withdrawal, acute -drinks 750cc vodka daily -been to rehab for detox many times -last drink sometime within last 24 hours -was withdrawing on arrival with EtOH level >200 -ordered for phenobarb in ED -will continue phenobarb PRN for EtOH withdrawal -ordered for MVI, thiamine, folate -social work consult 2. Atrial fibrillation with RVR -has known diagnosis of afib -never refilled metoprolol after taking for a month -reorder metoprolol -he has frequent falls in setting ot EtOH for now will avoid anticoagulation -ordered for TSH -ordered for ECHO 3. Cellulitis with abscess on left upper back -ordered for bactrim -consult surgery for drainage 4. Alcoholic cirrhosis, presumed -noted in patient's chart, patient was unaware of diagnosis of cirrhosis 5. Thrombocytopenia -continue to monitor -no need for transfusion 6. Hypomagnesemia -magnesium on admission 1.4 -ordered for replete mag -recheck in AM 7. Hypertension -hold anti-hypertensives for now 8. Left renal mass -ablated recently at [facility] CODE: Full Proxy: Aparna Lundberg, daughter I have utilized all available immediate resources to obtain, update, or review of the patient's current medications Time Spent With Patient Critical Care time: I spent a total of [] minutes of critical care time on this patient's care today; this time is exclusive of procedural time. Quality MIPS - Admit I confirm the patient?s Advance Care Plan is present, Code status is documented, Surrogate decision maker is in patient?s record [If Yes, STOP here]: Yes
[2021-05-10 02:07] LABS: COVID19 - ADMIT (NP swab/PCR) Negative (Negative)
--- NOTE | 2021-05-10 02:28 | DI.ECHO.S_ITS ---
[facility]---------[facility] +---------+ : : [address] : : : : [id number] : : : : Phone: [phone]+ Echocardiogram Report + + :Name: VANGIE WILHELM Study Date: 05/10/2021 Height: 68 in : :[facility] ReadingLocation: Weight: 230 lb : : Gender: Male BSA: 2.2 m2 : :: 1955 Age: 65 yrs BP: 134/67 mmHg: :Reason For Study: ATRIAL FIBRILLATION : :Ordering Physician: EUSEIBO, : :PEDRO Performed By: Danelle Brantley : :Referring: PEDRO KAPLAN : + + Interpretation Summary The ejection fraction is estimated to be 60-65%. Diastolic function could not be accurately assessed. The left atrium is mildly dilated. The right ventricular systolic function is normal. There is mild aortic regurgitation. There is mild tricuspid regurgitation. PASP is approximately 25-30 mmHg. The ascending aorta could not be visualized. Ascending aorta measured 4.4cm on 07/21/2020 exam. Compared to the prior study dated 07/21/2020, no significant change. Procedure: A two-dimensional transthoracic echocardiogram with color flow and Doppler was performed. The study quality was technically adequate. Comparison is made with the echocardiogram of 07/21/2020. Patient scanned in a mostly supine position due to large cyst on patient's back left side which causes pain to put pressure on. The patient was in sinus rhythm with heart rates between 60-65 bpm during the exam. Left Ventricle: The left ventricle is normal in size and wall thickness. The ejection fraction is estimated to be 60-65%. Diastolic function could not be accurately assessed due to contradictory data. Right Ventricle: The right ventricle is normal size. The right ventricular systolic function is normal. Atria: The left atrium is mildly dilated. Right atrial size is normal. There is no Doppler evidence for an interatrial shunt. The thickening of interatrial septum suggests lipomatous hypertrophy. Mitral Valve: The mitral valve leaflets are mildly calcified. There is mild mitral annular calcification. There is no mitral regurgitation noted. Aortic Valve: The aortic valve opens well. The aortic valve is mildly calcified. There is no aortic valve stenosis. There is mild aortic regurgitation. Tricuspid Valve: The tricuspid valve is normal in structure and function. There is mild tricuspid regurgitation. PASP is approximately 25-30 mmHg. Pulmonic Valve: The pulmonic valve is not well visualized. Great Vessels: The aortic root is normal size. The ascending aorta could not be visualized. Ascending aorta measured 4.4cm on 07/21/2020 exam. The IVC is of normal diameter and collapses greater than 50% with a sniff. This suggests a low right atrial pressure of 3 mm Hg. Pericardium/ Pleura There is no pericardial effusion. There is no pleural effusion. MMode/2D Measurements & Calculations LVIDd: 4.4 cm LVOT diam: 2.0 cm LVIDs: 3.2 cm Ao root diam: 3.4 cm FS: 29.0 % IVSd: 0.67 cm LVPWd: 1.1 cm LV rodríguez. diameter/BSA (cm/m^2): 2.0 LV sys. diameter/BSA (cm/m^2): 1.5 LA A2 area: 23.8 cm2 RA long axis: 6.1 cm LA A4 area: 26.0 cm2 RA area: 18.4 cm2 LA length (vol): 6.3 cm RA vol: 47.3 ml LA vol: 83.9 ml RA : 21.8 ml/m2 LA vol index: 38.7 ml/m2 IVC diam: 2.0 cm RVD1 (basal): 4.2 cm TAPSE: 2.1 cm Doppler Measurements & Calculations Ao V2 max: 149.4 cm/sec LVOT Max Paxton: 113.3 cm/sec Ao V2 mean: 105.4 cm/sec LV V1 max P.1 mmHg Ao max P.9 mmHg LV V1 VTI: 23.2 cm Ao mean P.1 mmHg WILLY(I,D): 2.7 cm2 Ao V2 VTI: 26.5 cm WILLY(V,D): 2.4 cm2 sev ratio: 0.88 WILLY indexed to BSA (cm^2/m^2): 1.3 MV E max paxton: 43.7 cm/sec TR max paxton: 220.9 cm/sec MV A max paxton: 64.1 cm/sec TR max P.5 mmHg MV E/A: 0.68 PA pr(Accel): 39.6 mmHg Med Peak E' Paxton: 6.3 cm/sec E/E' med: 6.9 Lat Peak E' Paxton: 11.5 cm/sec E/E' lat: 3.8 E/e' average: 5.4 MV dec time: 0.37 sec SV(LVOT): 72.1 ml Reading Physician:10:48 AM
[2021-05-10 02:36] LABS: UR Morphine/Opiate cutoff 300 Negative (Negative); Ur Creatinine Normal (Normal); Ur Specific Gravity Normal (Normal); Urine Amphetamines Negative (Negative); Urine Barbiturates Negative (Negative); Urine Benzodiazepines Negative (Negative); Urine Cocaine Negative (Negative); Urine MDMA Negative (Negative); Urine Methadone Negative (Negative); Urine Methamphetamines Negative (Negative); Urine Oxycodone Negative (Negative); Urine Phencyclidine Negative (Negative); Urine Tetrahydrocannabinol Negative (Negative); Urine Tricyclic Antidepressant Negative (Negative); Urine pH Normal (Normal)
--- NOTE | 2021-05-10 03:06 | PC.NURSE ---
Addendum entered by Alice Medley R.N. 05/10/21 05:48: call to MD to ask if tele was needed, due to dx of afib and CIWA and to ask if seeping wound on left middle shoulder blade should be cultured. orders for both. tele applied: in rapid afib 130's. admission meds given, IV mag started. IV continues to beep occlusion, limb elevated and splinted w/ 2 washcloths. patient states he is feeling much better. wound cx collected from 2 different parts of the open area on his back. approx 5cm round red open cyst, w/ areas of thick drainage mixed w/ liquid green drainage. Right elbow is very red and boggy, w/ two small scabs noted. PO bactrim given per order, along w/ zofran. HR is down to 70, patient is feeling sleepy. surgery consult later today. Original Note: 0205: arrived to floor from ED. dx AFIb w/ tachycardia + ETOH withdrawal. hx of DT's w/ seizures. was given phenobarbital in the ED. HR when arrived to ACU: 132/73, HR 105, irregular rate/rhythm. patient is a/o, voices needs. instructed operations specialists light use, oriented to room and bathroom. tolerating RA. high 90s on SPO2. awaiting admission orders from hospitalist.
[2021-05-10] MEDS: MAGNESIUM SULFATE 4 GM/100 ML PIGGYBACK IV (05:12)
[2021-05-10] MEDS: METOPROLOL IR 50 MG TABLET PO ×3 (05:16→21:26)
[2021-05-10] MEDS: ACETAMINOPHEN 325 MG TABLET 650 MG PO (05:16)
[2021-05-10] MEDS: TRIMETH/SULFA 160/800 (DS) TABLET 1 TAB PO ×3 (05:18→06:51)
[2021-05-10] MEDS: PHENobarbital 65 MG/ML VIAL 130 MG IV ×2 (05:38→07:02)
[2021-05-10] MEDS: THIAMINE 100 MG TABLET PO (09:21)
[2021-05-10] MEDS: MULTIVITAMIN 1 TABLET 1 TAB PO (09:21)
[2021-05-10] MEDS: FOLIC ACID 1 MG TABLET PO (09:21)
[2021-05-10] MEDS: ENOXAPARIN 40 MG/0.4 ML SYRINGE SUBCUT (09:22)
--- NOTE | 2021-05-10 11:50 | DIET.CONS ---
Dietary Consultation Note Admission Date: 05/10/2021 01:17 Assessment: 74 y/o M with PMH of ETOH abuse treated for withdrawal. Reports h/o 2013 gastric bypass as well and reported dumping syndrome with higher sugar options. PMH liver cirrhosis, shoulder wound, gastric bypass indicate increased protein needs. He is open to protein shake daily. Endorses no kcal intake when drinking. No significant weight loss over the last 3-12 months (1.8% and 10.3% respectively), but <75% kcals needs for over one month and substance withdrawal would qualify him for malnutrition. Reports 750 ml vodka daily as only kcal source most days (1600 kcals from ETOH), indicating 61% kcals met with ETOH. States his ETOH abuse has been ongoing most of his life. He may have a muscle milk protein shake once per day occasionally. Ht: 172.72 cm Wt: 104.326 kg BMI: 34.9 UBW: 104.5 reported Last BM: 05/10/21 (05/10/21 01:35) MNA: Jose Score: 20 Diet: 05/10/21 Breakfast Heart Healthy Diet Diet Modifications: 05/10/21 Dinner Heart Healthy Diet Diet Modifications: Ensure Max with dinner daily Sodium Level: 2 gm Sodium Labs: RBC 4.43 X10^6/uL (4.5-5.9) L 05/09/21 22:00 Hgb 13.8 g/dL (13.5-17.5) 05/09/21 22:00 Hct 40.9 % (41-53) L 05/09/21 22:00 Creatinine 0.72 mg/dL (0.66-1.25) 05/09/21 22:00 NT-Pro-B Natriuret Pep 125 pg/mL (<125) H 05/09/21 22:00 Nutrition Diagnosis: Severe chronic malnutrition r/t ETOH abuse and inadequate nutrient intake aeb <75% kcals for more than 1 month, substance abuse hx c withdrawal, gastric bypass hx Interventions: 1. Sobriety and liver nutrition education 2. Ensure Max daily with dinner EER: 2600kcals; 90-110g PRO 25 kcal/kg for wound healing and liver cirrhosis Using BMI 25 (given obese BMI), 75kg in wt x 1.2-1.5 g protein per kg = 90-113g for wound healing, liver cirrhosis, and gastric bypass needs Monitoring/Evaluations: ONS tolerance, weight, labs Electronically Signed by: Esther Grey 05/10/21 11:50 Clinical Dietitian [address] [address]
--- NOTE | 2021-05-10 14:38 | CM.DANOTE ---
DCP Assessment: patient is a 65 yr old male who was admitted for alcohol withdrawal and Afib with RVR. CM met with patient at the bedside and explained role. Patient was A&O x4 at time of CM visit. CM asked if patient was open to going to inpatient Detox? patient stated he was open to going if they will accept him. Patient states a few Detox facilities wont take him back do to his lack of follow threw. CM called [facility] in [place] and they are doing screenings today for possible INPT Detox tomorrow they will just have to speak with the patient in person. CM spoke with the patient and gave him the intake phone number which he called and started intake assessment. Cm will follow up with him to see how the intake went and determine if DC to [facility] detox is a possibility for DC I: Medicare and [facility] P: Dc to INPT Detox in [place] or home with OP alcohol treatment resources. Bailey Chance RNmanager talent Discharge Planning/Care Management CM Discharge Assessment Start: 05/10/21 14:35 Freq: Status: Active Protocol: Document 05/10/21 14:36 HS (Rec: 05/10/21 14:38 HS [id number]) Discharge Planning Assessment Assigned Rag Shredder Bailey Chance RN Case Manger DPOA/Assigned Designee Name Amalia Webster- Friend Contact Information [phone] Advance Directives? No Advance Directives on File No History Provided By Patient Prior Living Arrangements House Household Members friend(s) Type of transporation used prior to Drives own vehicle admit Independent with ADL's Yes Is patient alert and oriented? Yes Caregiver for Another No Patient/Family Preference Drug/Alcohol Rehab Comment Potentially to [place] [facility] [phone] Barriers to Discharge No Discharge Plan Drug Rehabilitation Additional Comment [facility] accepting patient tomorrow- did on phone screening today Whiteboard Updated in Patient Room with Yes name and ext. # of Rag Shredder Review Status In Process Next Review Type Continued Stay Review
[2021-05-10 15:15] LABS: Add Manual Diff / Slide Review NO; Basophils Absolute Auto 100 /uL (0-100); Basophils Percent Auto 2.7 % (0-2); Eosinophils Absolute Auto 100 /uL (0-450); Eosinophils Percent Auto 2.4 % (2-4); Hemoglobin 12.7 g/dL (13.5-17.5); Lymphocytes Absolute Auto 400 /uL (1100-4500); Lymphocytes Percent Auto 15.4 % (25-40); Mean Corpuscular HGB Conc 33.3 % (30-36); Mean Corpuscular Hemoglobin 30.7 PG (26-34); Mean Corpuscular Volume 92.2 fL (80-100); Monocytes Absolute Auto 200 /uL (0-900); Monocytes Percent Auto 5.5 % (3-14); Neutrophils Absolute Auto 2200 /uL (1500-7000); Red Blood Cell Count 4.12 X10^6/uL (4.5-5.9); Red Cell Distribution Width 19.8 % (11.6-14.8)
[2021-05-10] MEDS: DOXYCYCLINE HYCLATE 100 MG TABLET PO ×2 (15:24→21:27)
[2021-05-10] MEDS: AMOXICILLIN/CLAV 875/125 MG 1 TAB PO ×2 (15:24→21:32)
[2021-05-10 15:30] LABS: Platelet Count 74 X10^3/uL (150-400)
[2021-05-10 15:43] LABS: BUN Creatinine Ratio 20.8 (6-22); Blood Urea Nitrogen 15 mg/dL (9-20); Calcium 8.4 mg/dL (8.4-10.2); Carbon Dioxide 26 mmol/L (22-32); Chloride 92 mmol/L (98-107); Estimated Glomerular Filt Rate > 60.0 mL/min (>60); Glucose 95 mg/dL (80-110); HEMOLYSIS < 15 (0-50); Magnesium 1.8 mg/dL (1.6-2.3); Potassium 3.8 mmol/L (3.4-5.1); Sodium 130 mmol/L (137-145)
[2021-05-10 16:12] LABS: TSH w/ Reflex to FT4 1.61 uIU/mL (0.47-4.68)
[2021-05-10] MEDS: LACTOBACILLUS ACIDOPHILUS TABLET 1 EACH PO (17:38)
[2021-05-10] MEDS: chlordiazePOXIDE 25 MG CAPSULE PO ×2 (17:38→21:27)
--- NOTE | 2021-05-10 18:28 | PM.CN ---
History of Present Illness Consult details Chief complaint: ETOH Narrative: The patient is a gentleman with a several day history of a painful area in his upper mid back that has grown in size. He did not notice anything before 2 or 3days ago. It began to drain greenish fluid last night. He is admitted to the hospital for an unrelated problem. Meds Home Medications and Allergies Home Medications Medication Instructions Recorded Confirmed Type tamsulosin 0.4 mg capsule (Flomax) 0.4 mg PO QPM #0 cap 06/23/19 04/25/21 History testosterone cypionate 200 mg/mL 200 mg IM Q3W ml 06/23/19 04/25/21 History intramuscular oil aspirin 81 mg tablet,delayed 81 mg PO DAILY 10/11/19 04/25/21 History release (Adult Low Dose Aspirin) cholecalciferol (vitamin D3) 25 4,000 unit PO DAILY cap 10/11/19 04/25/21 History mcg (1,000 unit) capsule multivitamin (Daily Multi-Vitamin) 1 tab PO QAM 10/11/19 04/25/21 History omeprazole 20 mg capsule,delayed 20 mg PO QAM 10/11/19 04/25/21 History release vitamin B complex 1 tab PO DAILY 10/11/19 04/25/21 History gabapentin 600 mg tablet 600 mg PO TID PRN 01/03/21 04/25/21 History lorazepam 1 mg tablet (Ativan) See Rx Instructions .ROUTE 01/03/21 04/25/21 Rx .COMPLEX #10 tab testosterone cypionate 200 mg/mL 200 mg IM Q2W 01/03/21 04/25/21 History intramuscular oil trazodone 100 mg tablet 100 mg PO BEDTIME PRN #30 tab 01/11/21 04/25/21 Rx Allergies Allergy/AdvReac Type Severity Reaction Status Date / Time hydrochlorothiazide Allergy Severe Anaphylaxis Verified 04/25/21 09:30 [HYDROCHLOROTHIAZIDE] lisinopril [LISINOPRIL] Allergy Severe Anaphylaxis Verified 04/25/21 09:30 Review of Systems Review of Systems Narrative: No heart or breathing problems at this time. He is expected to go in withdrawal from alcoholism sometime in the next day or 2. He is not diabetic Exam Vital Signs (past 8 hours): - 05/10/21 13:51 Pulse Rate 65 Respiratory Rate 18 Blood Pressure 115/72 Pulse Oximetry 94 Oxygen Delivery Method Room Air Oxygen Flow Rate 0 Narrative Exam Narrative: Alert and oriented. No evidence of DTs. Raised firm lesion read in the upper back to the left of midline. Portion of the skin is necrotic over it. It is draining blood tinged purulence fluid. The area around it is red/ cellulitic. Objective Labs Result Diagrams: 05/10/21 15:05 05/10/21 15:05 Labs: Laboratory Results - last 24 hr 05/09/21 05/09/21 05/09/21 22:00 22:00 22:00 WBC 3.7 L RBC 4.43 L Hgb 13.8 Hct 40.9 L MCV 92.2 MCH 31.0 MCHC 33.7 RDW 19.7 H Plt Count 103 L Neut % (Auto) 52.5 Lymph % (Auto) 35.5 [place] % (Auto) 10.6 Eos % (Auto) 0.2 L Baso % (Auto) 1.2 Neut # (Auto) 1900 Lymph # (Auto) 1300 [place] # (Auto) 400 Eos # (Auto) 0 Baso # (Auto) 0 Sodium 141 Potassium 3.9 Chloride 96 L Carbon Dioxide 25 BUN 14 Creatinine 0.72 Estimated GFR > 60.0 BUN/Creatinine Ratio 19.4 Glucose 84 Calcium 9.1 Phosphorus Magnesium 1.4 L Total Bilirubin 1.3 Conjugated Bilirubin 0.0 Unconjugated Bilirubin 0.8 AST 110 H ALT 56 H Alkaline Phosphatase 128 H Total Creatine Kinase 66 CK-MB (CK-2) TNP CK-MB (CK-2) Rel Index TNP Troponin I 0.018 NT-Pro-B Natriuret Pep Total Protein 7.2 Albumin 3.7 Globulin 3.5 Albumin/Globulin Ratio 1.1 Lipase 48 TSH U Opiates 300ng/mL cut Ur Oxycodone Screen Urine Methadone Screen Ur Barbiturates Screen U Tricyclic Antidepress Ur Phencyclidine Scrn Ur Amphetamines Screen U Methamphetamines Scrn Ur MDMA Scrn (Ecstasy) U Benzodiazepines Scrn Urine Cocaine Screen U Marijuana (THC) Screen Ethyl Alcohol 227 H SARS-CoV-2 (PCR) 05/09/21 05/10/21 05/10/21 22:00 01:05 02:23 WBC RBC Hgb Hct MCV MCH MCHC RDW Plt Count Neut % (Auto) Lymph % (Auto) [place] % (Auto) Eos % (Auto) Baso % (Auto) Neut # (Auto) Lymph # (Auto) [place] # (Auto) Eos # (Auto) Baso # (Auto) Sodium Potassium Chloride Carbon Dioxide BUN Creatinine Estimated GFR BUN/Creatinine Ratio Glucose Calcium Phosphorus Magnesium Total Bilirubin Conjugated Bilirubin Unconjugated Bilirubin AST ALT Alkaline Phosphatase Total Creatine Kinase CK-MB (CK-2) CK-MB (CK-2) Rel Index Troponin I NT-Pro-B Natriuret Pep 125 H Total Protein Albumin Globulin Albumin/Globulin Ratio Lipase TSH U Opiates 300ng/mL cut Negative Ur Oxycodone Screen Negative Urine Methadone Screen Negative Ur Barbiturates Screen Negative U Tricyclic Antidepress Negative Ur Phencyclidine Scrn Negative Ur Amphetamines Screen Negative U Methamphetamines Scrn Negative Ur MDMA Scrn (Ecstasy) Negative U Benzodiazepines Scrn Negative Urine Cocaine Screen Negative U Marijuana (THC) Screen Negative Ethyl Alcohol SARS-CoV-2 (PCR) Negative 05/10/21 05/10/21 05/10/21 15:05 15:05 15:05 WBC 3.0 L RBC 4.12 L Hgb 12.7 L Hct 38.0 L MCV 92.2 MCH 30.7 MCHC 33.3 RDW 19.8 H Plt Count 74 L Neut % (Auto) 74.0 D Lymph % (Auto) 15.4 L D [place] % (Auto) 5.5 Eos % (Auto) 2.4 Baso % (Auto) 2.7 H Neut # (Auto) 2200 Lymph # (Auto) 400 L [place] # (Auto) 200 Eos # (Auto) 100 Baso # (Auto) 100 Sodium 130 L D Potassium 3.8 Chloride 92 L Carbon Dioxide 26 BUN 15 Creatinine 0.72 Estimated GFR > 60.0 BUN/Creatinine Ratio 20.8 Glucose 95 Calcium 8.4 Phosphorus 2.0 L Magnesium 1.8 Total Bilirubin Conjugated Bilirubin Unconjugated Bilirubin AST ALT Alkaline Phosphatase Total Creatine Kinase CK-MB (CK-2) CK-MB (CK-2) Rel Index Troponin I NT-Pro-B Natriuret Pep Total Protein Albumin Globulin Albumin/Globulin Ratio Lipase TSH 1.61 U Opiates 300ng/mL cut Ur Oxycodone Screen Urine Methadone Screen Ur Barbiturates Screen U Tricyclic Antidepress Ur Phencyclidine Scrn Ur Amphetamines Screen U Methamphetamines Scrn Ur MDMA Scrn (Ecstasy) U Benzodiazepines Scrn Urine Cocaine Screen U Marijuana (THC) Screen Ethyl Alcohol SARS-CoV-2 (PCR) [facility] Medical History Alcohol use disorder, severe, in early remission Alcoholism Cirrhosis Hypertension Major depression Surgical History H/O rhinoplasty History of fasciotomy 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 Family History Unknown Cancer Social History household members: friend(s) Tobacco & Substance Use Smoking Status: Former smoker alcohol intake: current substance use type: does not use Assessment & Plan Assessment and plan (1) Infected sebaceous cyst of skin: Status: Acute Assessment & Plan narrative: Incision and drainage. Oral antibiotics to cover skin agustin. The patient gave verbal consent for drainage of this sebaceous cyst. The skin over it was prepped with chlorhexidine and alcohol and local anesthetic infiltrated consisting of 6 cc of 1% lidocaine with neut. Transverse incision was made across the infected cyst and I sharply excised with a knife and scissors an area of 1 x 1 cm of necrotic skin and subcu fat. I evacuated all the contents of this sebaceous cyst. I irrigated it with saline and packed it with gauze. Dressing was applied and the patient tolerated everything quite well. Saline wet to dry dressings ordered. Keflex ordered. Time Spent With Patient Critical Care time: I spent a total of [] minutes of critical care time on this patient's care today; this time is exclusive of procedural time.
[2021-05-10] MEDS: cephALEXin 250 MG CAPSULE 500 MG PO (21:26)
[2021-05-10] MEDS: LORazepam 2 MG/ML INJ 1 MG IV (21:32)
[2021-05-11] VITALS (9 sets, daily range): BP systolic 102–123; BP diastolic 67–85; PULSE 60–73; RESP 15–18; TEMP 36.6–36.8; O2SAT 94–98
[2021-05-11] MEDS: LORazepam 2 MG/ML INJ 1 MG IV (02:04)
[2021-05-11] MEDS: FOLIC ACID 1 MG TABLET PO (08:03)
[2021-05-11] MEDS: METOPROLOL IR 50 MG TABLET PO ×2 (08:03→21:53)
[2021-05-11] MEDS: DOXYCYCLINE HYCLATE 100 MG TABLET PO ×2 (08:03→21:53)
[2021-05-11] MEDS: MULTIVITAMIN 1 TABLET 1 TAB PO (08:03)
[2021-05-11] MEDS: cephALEXin 250 MG CAPSULE 500 MG PO (08:04)
[2021-05-11] MEDS: AMOXICILLIN/CLAV 875/125 MG 1 TAB PO ×2 (08:04→21:53)
[2021-05-11] MEDS: LACTOBACILLUS ACIDOPHILUS TABLET 1 EACH PO (08:04)
[2021-05-11] MEDS: ENOXAPARIN 40 MG/0.4 ML SYRINGE SUBCUT (08:04)
[2021-05-11] MEDS: chlordiazePOXIDE 25 MG CAPSULE PO ×3 (08:04→21:53)
[2021-05-11] MEDS: THIAMINE 100 MG TABLET PO (08:04)
--- NOTE | 2021-05-11 12:45 | PM.PN.1 ---
Subjective Subjective Date Patient Seen: 05/10/21 Interval history: THIS IS A 65-YEAR-OLD MALE IN THE HOSPITAL FOR ALCOHOL DETOXIFICATION HE CAME TO THE ER REQUESTING DETOX. HE ALSO HAS AN ABSCESS TO HIS UPPER BACK WHICH IS BEING FOLLOWED BY SURGERY TODAY PATIENT REPORTED BEING MORE SOMEONE AUNT BECAUSE HE RECEIVED ATIVAN REPORTEDLY OVERNIGHT DENIES ANY INCREASING SHORTNESS OF BREATH NO CHEST PRESSURE NO CONFUSION Exam Vital Signs (past 8 hours): - 05/11/21 08:08 Pulse Rate 68 Respiratory Rate 16 Blood Pressure 123/81 Pulse Oximetry 95 Oxygen Delivery Method Room Air Oxygen Flow Rate 0 Narrative Exam Narrative: NO ACUTE DISTRESS. PATIENT IS ALERT ORIENTED X3. APPEARS ALSO OLDER THAN STATED AGE VITAL SIGNS STABLE HEAD ATRAUMATIC NORMOCEPHALIC NECK : SUPPLE WITHOUT ADENOPATHY NO CAROTID BRUITS EYE: EOMI, PERRLA, NORMAL CONJUNCTIVA; NO JAUNDICE CHEST: REGULAR RATE. NO RUBS. PMI IS NON DISPLACED. NO MURMURS; NORMAL S1-S2 PULMONARY: DECREASED BS OVER THE BASES. MILD BIBASILAR CRACKLES NOTED; NO INCREASED DULLNESS TO PERCUSSION ABDOMEN: SOFT. NONTENDER. NONDISTENDED. BOWEL SOUNDS ARE PRESENT IN ALL 4 QUADRANTS. NO MASS. EXTREMITIES: NO EDEMA.. NO CYANOSIS CLUBBING NOTED. NEURO: CRANIAL NERVES 2-12 GROSSLY INTACT. NO FOCAL NEUROLOGICAL DEFICIT NOTED. MSK: NORMAL RANGE OF MOTION FOR AGE. NO JOINT EFFUSION. SKIN: REDNESS NOTED TO UPPER BACK AREA. PURULENT DRAINAGE APPRECIATED. TENDER TO TOUCH. : NORMAL EXTERNAL GENITALIA. PSYCH : APPROPRIATE MOOD AND AFFECT. ALERT AWAKE ORIENTED X3 Objective Labs Result Diagrams: 05/10/21 15:05 05/10/21 15:05 Labs: Laboratory Results - last 24 hr 05/10/21 05/10/21 05/10/21 15:05 15:05 15:05 WBC 3.0 L RBC 4.12 L Hgb 12.7 L Hct 38.0 L MCV 92.2 MCH 30.7 MCHC 33.3 RDW 19.8 H Plt Count 74 L Neut % (Auto) 74.0 D Lymph % (Auto) 15.4 L D [place] % (Auto) 5.5 Eos % (Auto) 2.4 Baso % (Auto) 2.7 H Neut # (Auto) 2200 Lymph # (Auto) 400 L [place] # (Auto) 200 Eos # (Auto) 100 Baso # (Auto) 100 Sodium 130 L D Potassium 3.8 Chloride 92 L Carbon Dioxide 26 BUN 15 Creatinine 0.72 Estimated GFR > 60.0 BUN/Creatinine Ratio 20.8 Glucose 95 Calcium 8.4 Phosphorus 2.0 L Magnesium 1.8 TSH 1.61 PFSH Medical History Alcohol use disorder, severe, in early remission Alcoholism Cirrhosis Hypertension Major depression Surgical History H/O rhinoplasty History of fasciotomy 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 Family History Unknown Cancer Social History household members: friend(s) Smoking Status: Former smoker alcohol intake: current substance use type: does not use Assessment & Plan Assessment & Plan narrative: PROBLEM LIST ACUTE ALCOHOL INTOXICATION. HISTORY OF ALCOHOL ABUSE OBESITY. BMI OF 35 HYPO MAGNESEMIA ELEVATED LIVER ENZYMES. LIKELY ASSOCIATED WITH ALCOHOL USE HYPERTENSION PER HISTORY POSSIBLE SEBACEOUS CYST INFECTION. SURGERY CONSULTED PLAN PATIENT WILL BE REFERRED TO THE SURGICAL TEAM FOR EVALUATION IN REGARD TO HIS CYSTIC INFECTION WILL ALSO TREND LAB CLOSELY STARTED ON LIBRIUM T.I.D. ATIVAN NEEDED FALL AND ASPIRATION PRECAUTIONS WATCH CLOSELY FOR ANY SIGN OF DTS STRICT INPUT AND OUTPUT DAILY LABS TO FOLLOW INCENTIVE SPIROMETER TO BE USED WHILE AWAKE ADDITIONAL MANAGEMENT PER CLINICAL COURSE Time Spent With Patient Critical Care time: I spent a total of [] minutes of critical care time on this patient's care today; this time is exclusive of procedural time. Quality VTE Deep Vein Thrombosis/Pulmonary Embolism Present on Admission: No
--- NOTE | 2021-05-11 13:08 | P.PN_ITS ---
Subjective Subjective Date Patient Seen: 05/11/21 Interval history: ?THIS IS A 65-YEAR-OLD MALE IN THE HOSPITAL FOR ALCOHOL DETOXIFICATION ?HE CAME TO THE ER REQUESTING DETOX. ? HE ALSO HAS AN ABSCESS TO HIS UPPER BACK WHICH IS BEING FOLLOWED BY SURGERY ?TODAY ? PATIENT DID NOT HAVE ANY SIGNIFICANT COMPLAINTS HAVE SOME DISCOMFORT TO THE UPPER BACK AREA AFTER I&D YESTERDAY DENIES ANY FEVER OR CHILLS OVERNIGHT NO SIGNIFICANT ISSUES REPORTED Exam Vital Signs (past 8 hours): - 05/11/21 08:08 Pulse Rate 68 Respiratory Rate 16 Blood Pressure 123/81 Pulse Oximetry 95 Oxygen Delivery Method Room Air Oxygen Flow Rate 0 Narrative Exam Narrative: NO ACUTE DISTRESS.? PATIENT IS ALERT ORIENTED X3.? APPEARS ALSO OLDER THAN STATED AGE VITAL SIGNS STABLE HEAD ATRAUMATIC NORMOCEPHALIC NECK : SUPPLE WITHOUT ADENOPATHY NO CAROTID BRUITS EYE:? EOMI, PERRLA, NORMAL CONJUNCTIVA; NO JAUNDICE CHEST:? REGULAR RATE.? ? NO RUBS.? PMI IS NON DISPLACED.? NO MURMURS; NORMAL S1- S2 PULMONARY:? DECREASED BS OVER THE BASES.? MILD BIBASILAR CRACKLES NOTED; NO INCREASED DULLNESS TO PERCUSSION ABDOMEN:? SOFT.? NONTENDER.? NONDISTENDED.? BOWEL SOUNDS ARE PRESENT IN ALL 4 QUADRANTS.? NO MASS. EXTREMITIES: NO EDEMA..? NO CYANOSIS CLUBBING NOTED. NEURO:? CRANIAL NERVES 2-12 GROSSLY INTACT. NO FOCAL NEUROLOGICAL DEFICIT NOTED. MSK:? NORMAL RANGE OF MOTION FOR AGE.? NO JOINT EFFUSION. SKIN:? REDNESS NOTED TO UPPER BACK AREA.? PURULENT DRAINAGE? APPRECIATED.? TENDER TO TOUCH. :? NORMAL EXTERNAL GENITALIA. PSYCH :? APPROPRIATE MOOD AND AFFECT.? ALERT AWAKE ORIENTED X3 Objective Labs Result Diagrams: 05/10/21 15:05 05/10/21 15:05 Labs: Laboratory Results - last 24 hr 05/10/21 05/10/21 05/10/21 15:05 15:05 15:05 WBC 3.0 L RBC 4.12 L Hgb 12.7 L Hct 38.0 L MCV 92.2 MCH 30.7 MCHC 33.3 RDW 19.8 H Plt Count 74 L Neut % (Auto) 74.0 D Lymph % (Auto) 15.4 L D [place] % (Auto) 5.5 Eos % (Auto) 2.4 Baso % (Auto) 2.7 H Neut # (Auto) 2200 Lymph # (Auto) 400 L [place] # (Auto) 200 Eos # (Auto) 100 Baso # (Auto) 100 Sodium 130 L D Potassium 3.8 Chloride 92 L Carbon Dioxide 26 BUN 15 Creatinine 0.72 Estimated GFR > 60.0 BUN/Creatinine Ratio 20.8 Glucose 95 Calcium 8.4 Phosphorus 2.0 L Magnesium 1.8 TSH 1.61 PFSH Medical History Alcohol use disorder, severe, in early remission Alcoholism Cirrhosis Hypertension Major depression Surgical History H/O rhinoplasty History of fasciotomy 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 Family History Unknown Cancer Social History household members: friend(s) Smoking Status: Former smoker alcohol intake: current substance use type: does not use Assessment & Plan Assessment & Plan narrative: ?PROBLEM LIST ?ACUTE ALCOHOL INTOXICATION WITHOUT WITHDRAWAL.? HISTORY OF ALCOHOL ABUSE ?OBESITY.? BMI OF 35. COUNSELING GIVEN. LIFESTYLE CHANGES RECOMMENDED ?HYPO MAGNESEMIA. RESOLVED ?ELEVATED LIVER ENZYMES.? LIKELY ASSOCIATED WITH ALCOHOL USE. MONITOR CLOSELY ?HYPERTENSION PER HISTORY. CONTINUE HOME MEDS ? SEBACEOUS? CYST INFECTION.? SURGERY CONSULTED. STATUS POST I&D DAYS 1 ?PLAN ASSISTANCE FROM THE GENERAL SURGERY TEAM GREATLY APPRECIATED I&D PERFORMED YESTERDAY AFTERNOON CULTURE SENT AND PENDING SO FAR. POSSIBLE STAPH AUREUS CONTINUE DOXYCYCLINE AND AUGMENTIN FOR NOW DRESSING CHANGES PER SURGICAL TEAM. WET TO DRY FOLLOW LAB CLOSELY PATIENT TO BE OUT OF BED AT LEAST TWICE A DAY NURSING TO ENCOURAGE PATIENT TO USE HIS INCENTIVE SPIROMETER WHILE AWAKE WILL DISCHARGE ONCE CLEARED BY SURGICAL TEAM 05/10 ?PATIENT WILL BE REFERRED TO THE SURGICAL TEAM FOR EVALUATION IN REGARD TO HIS CYSTIC INFECTION ?WILL ALSO TREND LAB CLOSELY ?STARTED ON LIBRIUM T.I.D. ?ATIVAN NEEDED ?FALL AND ASPIRATION PRECAUTIONS ?WATCH CLOSELY FOR ANY SIGN OF DTS ?STRICT INPUT AND OUTPUT ?DAILY LABS TO FOLLOW ?INCENTIVE SPIROMETER TO BE USED WHILE AWAKE Time Spent With Patient Critical Care time: I spent a total of [] minutes of critical care time on this patient's care today; this time is exclusive of procedural time. Quality VTE Deep Vein Thrombosis/Pulmonary Embolism Present on Admission: No
[2021-05-11 14:20] LABS: Clostridium Difficile Tox PCR Negative for C. diff (Negative)
[2021-05-11] MEDS: CHOLESTYRAMINE/ASPARTAME 4 GM PACK PO ×2 (15:57→22:33)
[2021-05-11] MEDS: SODIUM,POTASSIUM PHOSPHATES PACKET 2 EACH PO (15:57)
[2021-05-11] MEDS: ACETAMINOPHEN 325 MG TABLET 650 MG PO (21:54)
[2021-05-12] MEDS: ACETAMINOPHEN 325 MG TABLET 650 MG PO (03:47)
[2021-05-12 03:52] VITALS: BP 105/54; PULSE 72; RESP 18; TEMP 37; O2SAT 99
[2021-05-12] MEDS: CHOLESTYRAMINE/ASPARTAME 4 GM PACK PO ×4 (06:19→22:06)
[2021-05-12 08:15] VITALS: BP 110/71; PULSE 64; RESP 18; TEMP 36.9; O2SAT 98
[2021-05-12] MEDS: AMOXICILLIN/CLAV 875/125 MG 1 TAB PO ×2 (08:23→22:06)
[2021-05-12] MEDS: FOLIC ACID 1 MG TABLET PO (08:23)
[2021-05-12] MEDS: chlordiazePOXIDE 25 MG CAPSULE PO ×2 (08:23→22:06)
[2021-05-12] MEDS: THIAMINE 100 MG TABLET PO (08:23)
[2021-05-12] MEDS: METOPROLOL IR 50 MG TABLET PO ×2 (08:23→22:05)
[2021-05-12] MEDS: DOXYCYCLINE HYCLATE 100 MG TABLET PO ×2 (08:23→22:06)
[2021-05-12] MEDS: MULTIVITAMIN 1 TABLET 1 TAB PO (08:23)
--- NOTE | 2021-05-12 10:25 | PM.PN.1 ---
Subjective Subjective Interval history: IMPRESSION THIS IS A 65-YEAR-OLD MALE IN THE HOSPITAL WITH ALCOHOL INTOXICATION. ?HE CAME TO THE ER REQUESTING DETOX. BLOOD ALCOHOL WAS ELEVATED ? HE ALSO HAS AN INFECTED CYST/ABSCESS TO HIS UPPER BACK WHICH IS BEING FOLLOWED BY SURGERY I&D PERFORMED ON 05/10. CULTURE GROWING COAGULASE-NEGATIVE STAPHYLOCOCCUS ?TODAY PATIENT REPORTED SOME DIARRHEA. HE REPORTED MULTIPLE BOWEL MOVEMENTS OVER THE LAST 24 HOURS NO FEVER OR CHILLS NO CHANGE IN MENTATION / NO INCREASING CONFUSION DENIES ANY CHEST PAIN FOR NO SHORTNESS OF BREATH REPORTED FEELING WEAK ALSO. HE REPORTED DIFFICULTY AMBULATING EVEN WITH HER WALKER. HE WOULD BE AGREEABLE TO GO TO [facility]ILITY IF NEEDED Exam Vital Signs (past 8 hours): - 05/12/21 03:52 05/12/21 08:15 Temperature 98.6 F 98.5 F Pulse Rate 72 64 Respiratory Rate 18 18 Blood Pressure 105/54 L 110/71 Pulse Oximetry 99 98 Oxygen Delivery Method Room Air Oxygen Flow Rate 0 Narrative Exam Narrative: NO ACUTE DISTRESS.? PATIENT IS ALERT ORIENTED X3.? APPEARS ALSO OLDER THAN STATED AGE VITAL SIGNS STABLE HEAD ATRAUMATIC NORMOCEPHALIC NECK : SUPPLE WITHOUT ADENOPATHY NO CAROTID BRUITS EYE:? EOMI, PERRLA, NORMAL CONJUNCTIVA; NO JAUNDICE CHEST:? REGULAR RATE.? ? NO RUBS.? PMI IS NON DISPLACED.? NO MURMURS; NORMAL S1-S2 PULMONARY:? DECREASED BS OVER THE BASES.? MILD BIBASILAR CRACKLES NOTED; NO INCREASED DULLNESS TO PERCUSSION ABDOMEN:? SOFT.? NONTENDER.? NONDISTENDED.? BOWEL SOUNDS ARE PRESENT IN ALL 4 QUADRANTS.? NO MASS. EXTREMITIES: NO EDEMA..? NO CYANOSIS CLUBBING NOTED. NEURO:? CRANIAL NERVES 2-12 GROSSLY INTACT. NO FOCAL NEUROLOGICAL DEFICIT NOTED. MSK:? NORMAL RANGE OF MOTION FOR AGE.? NO JOINT EFFUSION. SKIN:? REDNESS NOTED TO UPPER BACK AREA.? ?SEROSANGUINEOUS DRAINAGE? APPRECIATED.? TENDER TO TOUCH. PACKING IN PLACE 4 X 4. :? NORMAL EXTERNAL GENITALIA. PSYCH :? APPROPRIATE MOOD AND AFFECT.? ALERT AWAKE ORIENTED X3 Objective Labs Result Diagrams: 05/10/21 15:05 05/10/21 15:05 Labs: Laboratory Results - last 24 hr 05/11/21 13:30 C. difficile Tox (PCR) Negative for c. 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 Family History Unknown Cancer Social History household members: friend(s) Smoking Status: Former smoker alcohol intake: current substance use type: does not use Assessment & Plan Assessment & Plan narrative: PROBLEM LIST ?ACUTE ALCOHOL INTOXICATION WITHOUT WITHDRAWAL.? HISTORY OF ALCOHOL ABUSE ?OBESITY.? BMI OF 35.? COUNSELING GIVEN.? LIFESTYLE CHANGES RECOMMENDED ?HYPO MAGNESEMIA.? RESOLVED ?ELEVATED LIVER ENZYMES.? LIKELY ASSOCIATED WITH ALCOHOL USE.? MONITOR CLOSELY ?HYPERTENSION PER HISTORY.? CONTINUE HOME MEDS ? SEBACEOUS? CYST INFECTION.? SURGERY CONSULTED.? STATUS POST I&D DAYS 2 PHYSICAL DECONDITIONING/DEBILITY DIARRHEA. C DIFF COLITIS NOT SUSPECTED ?PLAN 05/12 CULTURE TAKEN DURING HIS I AND D'S GROWING COAGULASE-NEGATIVE STAPHYLOCOCCUS CONTINUE CURRENT BIOTICS WITH DOXYCYCLINE AND MAINTAIN FOR NOW VITAL SIGNS ARE FAIRLY STABLE ASSISTANCE FROM GENERAL SURGERY GREATLY APPRECIATED CONTINUE DRESSING CHANGES WITH WET-TO-DRY COMMENDED BY SURGICAL TEAM PATIENT IS NOT SHOWING ANY SIGN OF DTS AT THIS TIME CONTINUE TO TAPER LIBRIUM WILL SWITCH THE ROOM FROM T.I.D. TO B.I.D. FOR THE NEXT 24 HOURS SUBSEQUENTLY CHANGED TO DAILY [facility] REPORTING DIARRHEA LIKELY SIDE EFFECT FROM ANTIBIOTIC THERAPY C DIFF COLITIS NOT SUSPECTED CONTINUE WITH CURRENT ANTIBIOTICS FOR NOW ALSO ADDED LACTOBACILLUS OKAY FOR PATIENTS TO SHOWER PRIOR TO DRESSING CHANGES WILL CONSULT PHYSICAL THERAPY AND OCCUPATIONAL NEW TEAM TO AND TREAT PATIENT INDICATED WILL SPEAK TO CONSTRUCTION MILLWRIGHT /SWEEP MOLDER TEAM IN REGARD TO POSSIBLE REFERRAL TO [facility] IF INDICATED ?FALL AND ASPIRATION PRECAUTIONS ?STRICT INPUT AND OUTPUT ?DAILY LABS TO FOLLOW ?INCENTIVE SPIROMETER TO BE USED WHILE AWAKE ADDITIONAL MANAGEMENT PER CLINICAL COURSE DISCHARGE ONCE CLINICALLY STABLE. POSSIBLE DATE NEXT 2-3 DAYS Time Spent With Patient Critical Care time: I spent a total of [] minutes of critical care time on this patient's care today; this time is exclusive of procedural time. Quality VTE Deep Vein Thrombosis/Pulmonary Embolism Present on Admission: No
--- NOTE | 2021-05-12 13:10 | PT.IIE ---
Current Diagnoses Unspecified atrial fibrillation (05/10/21) Local infection of the skin and subcutaneous tissue, unspecified (05/10/21) Sebaceous cyst (05/10/21) Medical History (Last Reviewed 05/10/21 @ 18:29 by Zacarias Dominguez MD) Alcohol use disorder, severe, in early remission Alcoholism Cirrhosis Hypertension Major depression Physical Therapy Inpatient Evaluation/Re-Eval M1 PT/OT-IP Prior Functional Status Start: 05/12/21 11:32 Freq: NEEDED Status: Active Protocol: Document 05/12/21 12:49 [facility] (Rec: 05/12/21 13:10 [facility] [id number]) Medical Review Prior Functional Status Medical History Reviewed Yes Diet/Fluid Consistency Regular Communication NO LIMITATIONS Mobility and Gait Independent, used cane at times. Reports his balance was better when he had been drinking vs when he was sober. Admits to multiple falls but without injury, unable to tell PT if when sober or when drinking. Activities of Daily Living and IADL's independent Social History Household Members friend(s) Living Arrangements House Number of Floors (Floors) One Floor Number of Stairs To Enter/Railing? 2 steps to enter Home Environment Standard Height Toilet,Tub/ Shower Home Equipment Straight Cane Employment Status Retired Additional Social History Comment M2 PT-IP Current Condition Start: 05/12/21 11:32 Freq: NEEDED Status: Active Protocol: Document 05/12/21 12:49 [facility] (Rec: 05/12/21 13:10 [facility] [id number]) Physical Therapy Current Condition Current Condition Evaluation Date 05/12/21 Treatment Diagnosis ETOH withdrawl M3 PT-IP Subjective Start: 05/12/21 11:32 Freq: NEEDED Status: Active Protocol: Document 05/12/21 12:49 [facility] (Rec: 05/12/21 13:10 [facility] [id number]) Subjective Physical Therapy Visit Type Type Initial Evaluation Visit Start Time 11:40 Visit Stop Time 12:05 Total Visit Minutes 25 Notes Limited evaluation as soon as got sitting at edge of bed patient had to go to bathroom, had diarrhea, and after assisted back to edge of bed to rest before continuing session, patient requested wait until later as too fatigued. Number of BUSINESS SERVICES SPECIALIST SALES Visits 0 Physical Therapy Visit Comments Patient Comments Willing to participate. Reports he would like to be discharged to alcohol rehab, but insurance and process of admission difficult. States his balance is better when he has been drinking vs when he is sober. Feels the need for a walker right now. Concerned about going home. C/o uncontrolled diarrhea complicating how he is feeling . Patient Goals Be able to go to alcohol rehab Therapy Pain Assessment Pain Present Pain Present Pain Reported Location Bilateral Lower Leg Intensity 5 M4 PT-IP Mobility and Gait Start: 05/12/21 11:32 Freq: NEEDED Status: Active Protocol: Document 05/12/21 12:49 [facility] (Rec: 05/12/21 13:10 [facility] [id number]) PT-Bed Mobility Assessment Rolling Level of Assist Standby Assistance Supine to Sit Supine to Sit Independent Scooting Scooting to Edge of Bed Independent PT-Transfer Assessment Sit to and From Stand Sit to and from Stand Independent Equipment Transfer Assistive Device Gait Belt,Front Wheeled Walker Orthotic/Prosthetic Devices or Brace: No Transfers Transfer Destination Bed Transfer Technique Stand Step Pivot Transfer Ability Level of Assist Standby Assistance Comments Mobility Comments cues for safe transfers with use of walker; one hand on solid surface for safety Gait Assessment Gait Gait Assistance Required: Independent,Standby Assistance Distance (Feet) 20 Assistive Devices Assistive Device Front Wheeled Walker Gait Deviations General Gait Pattern Within Normal Limits Comments Gait Comments gait in room from far side of bed to bathroom and back again using FWW. Reported fatigue after gait, requested further PT after lunch. Stair Climbing Assessment Comments Stair Climbing Comments stairs in PM PT-Balance Assessment Sitting Balance and Reactions Static Sitting Balance Ability Normal Dynamic Sitting Balance Ability Normal Standing Balance and Reactions Static Standing Balance Ability Normal Dynamic Standing Balance Ability Normal Comments Other Balance Tests/Deviations/Treatment no objective testing due to : M5 PT-IP Objective Assessments Start: 05/12/21 11:32 Freq: NEEDED Status: Active Protocol: Document 05/12/21 12:49 [facility] (Rec: 05/12/21 13:10 [facility] [id number]) Orientation Orientation/Cognition Level of Alertness Alert Orientation Name,Place,Situation Language Function Ability No Deficits Noted Safety Awareness Understands Safety Issues Memory Description No Deficits Noted Gross Range of Motion Upper Extremity ROM Assessment Within Functional Limits Lower Extremity ROM Assessment Within Functional Limits Strength Comments Strength Comments WFL seated MMT hips, ankles, and knees Coordination Assessment Gross Coordination Gross Coordination WNL Sensation Assessment Sensation Gross Sensation Left UE Impaired,Right LE Impaired Sensation Description Paresthesia,Numbness M7 PT-IP Assessment and Plan Start: 05/12/21 11:32 Freq: NEEDED Status: Active Protocol: Document 05/12/21 12:49 [facility] (Rec: 05/12/21 13:10 [facility] [id number]) PT Summary Assessment and Plan Potential Rehabilitation Potential Good Summary Impairments Activity Tolerance Assessment Summary Patient referred to PT to help with discharge planning. Prior to admission patient able to ambulate independently , occasional use of cane. At this time reporting the need for use of a walker for ambulation. Was safe with gait within his room with no LOB but reported too fatigued to continue with PT session this am after another bout of diarrhea. Should be able to be discharged home with use of walker, as well as use of own cane but plan to see 1 further time for PT prior to discharge to fully determine needs, assure safe assistive device use and gait. Goals Bed Mobility Goal Independent Transfer Goal Independent Gait Goal Independent Gait Distance 100' Other Goals independent gait on stairs Frequency of Treatment Frequency Of Treatment Twice a Day Treatment Plan Physical Therapy Treatment Plan Bed Mobility Training,Transfer Training,Gait Training, Discharge Planning Other Recommendations and Next Treatment gait on stairs Focus functional balance assessment gait training with walker, possibly cane Discharge Recommendations PT Discharge Recommendations Home with Assistance Other Discharge Recommendations May benefit from Home Health PT Equipment Needed for Home Before FWW has been ordered Discharge Transportation Needs at Discharge Private Vehicle
[2021-05-12 13:35] VITALS: BP 99/66; PULSE 105; RESP 18; TEMP 35.9; O2SAT 98
--- NOTE | 2021-05-12 13:52 | PM.DS.1 ---
History of Present Illness History of Present Illness Date Patient Seen: 05/12/21 Chief complaint: ETOH Narrative: Mr. Webster is a 65M with H alcohol abuse/dependence, HTN, documented cirrhosis, paroxysmal atrial fibrillation, left renal mass with recent ablation who is presenting requesting detox from alcohol. He states he has had a long history of alcohol use. He has been to rehab many times. He continues to drink significantly, he states 750cc of alcohol daily. His last drink was within 24 hours. He has had withdrawal before, no seizures, has had DTs. He was feeling tremulous before receiving phenobarb in the ED. HE notes he has been told he has atrial fibrillation, he has had frequent falls, and has not been prescribed anticoagulation. He has been prescribed metoprolol, which he took, but has not been taking recently as he did not refill his prescription. For the last two days he has had swelling and pain on his left upper back. No fevers/chills. No trauma. No nausea/vomiting, diarrhea, abdominal pain. No dysuria In the ED, he was initially noted to be mildly tachycardic with heart rate in the 90s. He was observed on telemetry to have intermittent periods of tachycardia with rate in the 130s-140s. EKG notable for atrial fibrillation. Labs notable for WBC 3.7, platelets 103, creatinine 0.72, magnesium 1.4, ast 110, alt 56, alk phos 128. EtOH level 227. He was given phenobarbital and admitted for further treatment. Family history: Sister - alcohol abuse Discharge Providers Provider Date of admission: 05/10/21 01:17 Discharge Date: 05/12/21 Primary care physician: Maria Teresa Talley PA-C Consults: 05/09/21 22:[address] [facility] [place] - Garbage Collector Stat Comment: alcohol, detox, etc [facility] [place] [facility] Consult: Behavioral Health Assess 05/10/21 01:47 Consult to Dietitian, Adult Routine Comment: Reason For Exam: alcoholism 05/10/21 01:[address] [facility] [place] - Garbage Collector Routine Comment: etoh abuse, interested in detox 05/10/21 14:26 Consult to General Surgery Routine Comment: Consulting Provider: Zacarias Dominguez Reason for consultation: INFECTED CYST TO THE UPPER BACK Has provider been notified: No 05/12/21 10:24 Consult to Physical Therapy Evaluate & Treat Comment: Physician Instructions: Evaluate and Treat 05/12/21 10:25 Consult to Occupational Therapy Evaluate & Treat Comment: Physician Instructions: Evaluate and treat 05/12/21 13:12 Consult to Home Health Routine Comment: Reason For Exam: Walker for home use due to weakness Discharge provider: Sherry Vega DO Summary Hospital Course Discharge Diagnosis: ?ACUTE ALCOHOL INTOXICATION WITHOUT WITHDRAWAL.? HISTORY OF ALCOHOL ABUSE ?OBESITY.? BMI OF 35.? COUNSELING GIVEN.? LIFESTYLE CHANGES RECOMMENDED ?HYPO MAGNESEMIA.? RESOLVED ?ELEVATED LIVER ENZYMES.? LIKELY ASSOCIATED WITH ALCOHOL USE.? MONITOR CLOSELY ?HYPERTENSION PER HISTORY.? CONTINUE HOME MEDS ? SEBACEOUS? CYST INFECTION.? SURGERY CONSULTED.? STATUS POST I&D DAYS 2 ?PHYSICAL DECONDITIONING/DEBILITY ?DIARRHEA.? C DIFF COLITIS NOT SUSPECTED Hospital Course: PATIENT ADMITTED FOR ALCOHOL DETOX HAS BEEN ON LIBRIUM AND SHOWING NO SIGN OF DTS. AT THIS TIME I FEEL PATIENT WOULD DO WELL AT HOME HE REFUSED ALCOHOL REHAB WHICH WAS OFFERED TO HIM ON ADMISSION ADDITIONAL MANAGEMENT DEFERRED TO HIS OUTPATIENT PROVIDERS HIS DOCTOR PROGNOSIS IS GUARDED Exam Vital Signs (past 8 hours): - 05/12/21 08:15 Temperature 98.5 F Pulse Rate 64 Respiratory Rate 18 Blood Pressure 110/71 Pulse Oximetry 98 Oxygen Delivery Method Room Air Oxygen Flow Rate 0 Objective Labs Result Diagrams: 05/12/21 13:50 05/12/21 13:50 Labs: Laboratory Results - last 24 hr 05/11/21 13:30 C. difficile Tox (PCR) Negative for c. 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 Family History Unknown Cancer Social History household members: friend(s) Smoking Status: Former smoker alcohol intake: current substance use type: does not use Discharge Plan Discharge Plan Patient Disposition: Home Health Service Discharge orders & Medications Prescriptions: New Bacid 1 billion cell- 250 mg Tablet 1 tab PO TIDWM Qty: 120 0RF amoxicillin-pot clavulanate [Augmentin] 875-125 mg Tablet 1 tab PO BID Qty: 20 0RF cholestyramine-aspartame [Prevalite] 4 gram Powder In Packet 4 g PO QID Qty: 12 0RF doxycycline hyclate 100 mg Tablet 100 mg PO BID Qty: 20 0RF folic acid 1 mg Tablet 1 mg PO DAILY Qty: 120 0RF multivitamin with folic acid [Tab-A-Michael] 400 mcg Tablet 1 tab PO DAILY Qty: 60 0RF thiamine mononitrate (vit B1) 100 mg Tablet 100 mg PO DAILY Qty: 60 0RF metoprolol tartrate 25 mg tablet 25 mg PO BID Qty: 60 0RF gabapentin 300 mg capsule 300 mg PO TID Qty: 120 0RF trazodone 50 mg tablet 50 mg PO BEDTIME Qty: 60 0RF melatonin 10 mg capsule 10 mg PO BEDTIME PRN (Reason: sleep) Qty: 60 0RF buspirone 10 mg tablet 10 mg PO BID Qty: 60 0RF sucralfate [Carafate] 1 gram tablet 1 g PO QACHS Qty: 240 0RF famotidine [Pepcid AC] 20 mg tablet 40 mg PO BID Qty: 120 0RF Continued multivitamin [Daily Multi-Vitamin] Tablet 1 tab PO QAM 0RF vitamin B complex Tablet 1 tab PO DAILY 0RF aspirin [Adult Low Dose Aspirin] 81 mg tablet,delayed release (DR/EC) 81 mg PO DAILY 0RF Label Comments: shoulde be but not currently cholecalciferol (vitamin D3) 25 mcg (1,000 unit) capsule 4,000 unit PO DAILY 0RF omeprazole 20 mg capsule,delayed release(DR/EC) 20 mg PO QAM 0RF tamsulosin [Flomax] 0.4 mg capsule 0.4 mg PO QPM Qty: 0 0RF trazodone 100 mg tablet 100 mg PO BEDTIME PRN (Reason: Insomnia) Qty: 30 5RF Rx Instructions: Continue 100 mg by mouth at bedtime testosterone cypionate 200 mg/mL oil 200 mg IM Q2W 0RF Label Comments: inject 1 milliliter intramuscularly every 2 weeks gabapentin 600 mg tablet 600 mg PO TID PRN (Reason: Back Pain) 0RF lorazepam [Ativan] 1 mg tablet See Rx Instructions .ROUTE .COMPLEX Qty: 10 0RF Rx Instructions: 1 mg orally as needed ;QID x 24 hrs, TID x 24hrs, BID x 24 hrs, daily x ! testosterone cypionate 200 mg/mL oil 200 mg IM Q3W 0RF Label Comments: inject 1 milliliter intramuscularly every 2 weeks Follow up/Referrals: Maria Teresa Talley PA-C [Primary Care Provider] - Diet/Activity/Treatments Diet: Low-fat and Low-cholesterol Activity: TOLERATED Discharge Data Primary Care Provider: Maria Teresa Talley Quality VTE Deep Vein Thrombosis/Pulmonary Embolism Present on Admission: No
[2021-05-12 13:56] LABS: Add Manual Diff / Slide Review NO; Basophils Absolute Auto 0 /uL (0-100); Basophils Percent Auto 0.7 % (0-2); Eosinophils Absolute Auto 300 /uL (0-450); Eosinophils Percent Auto 5.7 % (2-4); Hematocrit 39.2 % (41-53); Hemoglobin 13.1 g/dL (13.5-17.5); Lymphocytes Absolute Auto 1200 /uL (1100-4500); Lymphocytes Percent Auto 25.7 % (25-40); Mean Corpuscular HGB Conc 33.4 % (30-36); Mean Corpuscular Hemoglobin 31.2 PG (26-34); Mean Corpuscular Volume 93.2 fL (80-100); Monocytes Absolute Auto 400 /uL (0-900); Monocytes Percent Auto 9.4 % (3-14); Neutrophils Absolute Auto 2600 /uL (1500-7000); Neutrophils Percent Auto 58.5 % (50-75); Platelet Count 70 X10^3/uL (150-400); Red Cell Distribution Width 20.2 % (11.6-14.8); White Blood Cell Count 4.5 X10^3/uL (4.5-11.0)
[2021-05-12 14:13] LABS: Alanine Aminotransferase 31 IU/L (<50); Albumin 3.2 g/dL (3.5-5.0); Albumin Globulin Ratio 0.9 (1.0-2.8); Alkaline Phosphatase 113 U/L (38-126); Aspartate Aminotransferase 43 IU/L (17-59); BUN Creatinine Ratio 30.4 (6-22); Bilirubin Total 0.9 mg/dL (0.2-1.3); Blood Urea Nitrogen 28 mg/dL (9-20); Calcium 9.5 mg/dL (8.4-10.2); Carbon Dioxide 31 mmol/L (22-32); Chloride 97 mmol/L (98-107); Estimated Glomerular Filt Rate > 60.0 mL/min (>60); Globulin 3.4 g/dL (1.7-4.1); Glucose 89 mg/dL (80-110); HEMOLYSIS < 15 (0-50); Potassium 4.1 mmol/L (3.4-5.1); Sodium 132 mmol/L (137-145); Total Protein 6.6 g/dL (6.3-8.2)
--- NOTE | 2021-05-12 14:43 | CM.DPC ---
DCP Continued: CM spoke with MD during rounds about patient not wanting to DC home stating he is feeling to weak and wants to go to SNF. CM met with patient at the bedside to see how patient was doing and discuss DC home vs home with HH vs to SNF or INPT rehab vs Out patient rehab. CM asked the patient about Detox in [place] and patient stated he didn't have a plan in place for when he DC from detox so he didn't want to go there. CM asked if he wanted to work on a OP rehab plan for when he leaves Detox yesterday and patient stated he didn't want to go to INPT Detox. CM asked about INPT rehab and patient stated he didn't want to go to inpt rehab because he has a dog at home and would rather do OP rehab. CM gave patient information [facility] and [facility] for the patient to follow up on at [place]. CM talked with patient about not feeling stable to DC and asked about SNF as a possibility at [place]- when Cm explained that [facility] facilities are a place he goes and does PT and OT to gain strength before going home. patient stated he rather go home with HH. CM asked what company he would like to use he stated he doesn't know CM gave him medicare approved list and he chose [facility] or [facility] . CM faxed information to [facility] and [facility] along with signed [facility] and [facility] called back saying they can accept and will follow up with him tomorrow. CM asked PT to work with patient today to see if HH is an option or if he needs SNF at [place]. PT said patient can go home with possible HH. Patient stated he does not have a FWW at home and MD stated we could DC him home with one CM placed order and spoke with PT about getting patient the walker for when he DC home they stated they will take care of that. CM let the patient know he is DC home today with HH calling him tomorrow. Patient stated he would like to stay another night but is medically stable, Cm Spoke with patient he stated he doesn't have a ride and doesn't have money to pay for a taxi, CM provided a taxi voucher for the patient so he can go home and feel comfortable DC today. 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 patient updated and he stated that he is concerned for his Diarrhea and doesn't want to DC with Diarrhea. Cm spoke with patient and the nurse about this and patient told CM and nurse that patient has been dealing with diarrhea since he had a gastric bypass about 10 years ago per patient - But that he usually doesn't drink milk or juice at home and has since he has been here. CM updated patients nurse and she stated that MD is planning on DC him home with medications to help. Cm relayed information to patient and he stated understanding and is willing to DC home today. Bailey Dash RNmanager technical services
[2021-05-12 14:54] LABS: Anisocytosis 2+
--- NOTE | 2021-05-12 17:08 | PT.IPTN ---
Current Diagnoses Unspecified atrial fibrillation (05/10/21) Local infection of the skin and subcutaneous tissue, unspecified (05/10/21) Sebaceous cyst (05/10/21) Physical Therapy Treatment Note M2 PT-IP Current Condition Start: 05/12/21 11:32 Freq: NEEDED Status: Active Protocol: Document 05/12/21 12:49 [facility] (Rec: 05/12/21 13:10 [facility] [id number]) Physical Therapy Current Condition Current Condition Evaluation Date 05/12/21 Treatment Diagnosis ETOH withdrawl M3 PT-IP Subjective Start: 05/12/21 11:32 Freq: NEEDED Status: Active Protocol: Document 05/12/21 16:57 [facility] (Rec: 05/12/21 17:08 [facility] [id number]) Subjective Physical Therapy Visit Type Type Treatment Note Visit Start Time 16:34 Visit Stop Time 16:57 Total Visit Minutes 23 Number of CASSANDRA CONSULTANT Visits 1 Physical Therapy Visit Comments Patient Comments Willing to do PT before DC after dinner M4 PT-IP Mobility and Gait Start: 05/12/21 11:32 Freq: NEEDED Status: Active Protocol: Document 05/12/21 16:57 [facility] (Rec: 05/12/21 17:08 [facility] [id number]) PT-Bed Mobility Assessment Rolling Type of Rolling Roll to Right Level of Assist Independent Supine to Sit Supine to Sit Independent Scooting Scooting to Edge of Bed Independent PT-Transfer Assessment Sit to and From Stand Sit to and from Stand Independent Equipment Transfer Assistive Device Gait Belt,Front Wheeled Walker Orthotic/Prosthetic Devices or Brace: No Transfers Transfer Destination Bed,Toilet Transfer Technique Stand Step Pivot Transfer Ability Level of Assist Standby Assistance Comments Mobility Comments Pt able to independently navigate bed mobility. SBA for transfers anita to past report of dizziness. Pt ambulated in hallway ~200 feet using FWW. Requested to return to room to use the toilet. Pt ambuulated to the bathroom SBA with FWW. Whemn finished he performed hygiene and returned to bed SBA. He was left in room with all needs within reach. Gait Assessment Gait Gait Assistance Required: Independent,Standby Assistance Distance (Feet) 200 Assistive Devices Assistive Device Front Wheeled Walker Orthotic/Prosthetic Devices or Brace: No Gait Deviations General Gait Pattern Within Normal Limits Comments Gait Comments see mobility section above Stair Climbing Assessment Comments Stair Climbing Comments refused stairs M5 PT-IP Objective Assessments Start: 05/12/21 11:32 Freq: NEEDED Status: Active Protocol: Document 05/12/21 12:49 [facility] (Rec: 05/12/21 13:10 [facility] [id number]) Orientation Orientation/Cognition Level of Alertness Alert Orientation Name,Place,Situation Language Function Ability No Deficits Noted Safety Awareness Understands Safety Issues Memory Description No Deficits Noted Gross Range of Motion Upper Extremity ROM Assessment Within Functional Limits Lower Extremity ROM Assessment Within Functional Limits Strength Comments Strength Comments WFL seated MMT hips, ankles, and knees Coordination Assessment Gross Coordination Gross Coordination WNL Sensation Assessment Sensation Gross Sensation Left UE Impaired,Right LE Impaired Sensation Description Paresthesia,Numbness M6 PT-IP Treatment Start: 05/12/21 11:32 Freq: NEEDED Status: Active Protocol: Document 05/12/21 17:08 LJ (Rec: 05/12/21 17:08 [facility] [id number]) Physical Therapy Treatment Education Education Provided Safety M7 PT-IP Assessment and Plan Start: 05/12/21 11:32 Freq: NEEDED Status: Active Protocol: Document 05/12/21 16:57 [facility] (Rec: 05/12/21 17:08 [facility] [id number]) PT Summary Assessment and Plan Potential Rehabilitation Potential Good Summary Impairments Activity Tolerance Assessment Summary Prior to admission patient able to ambulate independently , occasional use of cane. At this time reporting the need for use of a walker for ambulation. Was safe with gait within his room and down the hallway ~200 feet with no LOB. Pt stating he feels too unsteady at this time to use SPC and needs to get to the bathroom quickly at times due to diarrhea and would be unable to do so if oonly using a cane. Pt will be discharging after dinner to his home. Goals Bed Mobility Goal Independent Transfer Goal Independent Gait Goal Independent Gait Distance 100' Other Goals independent gait on stairs Frequency of Treatment Frequency Of Treatment Twice a Day Treatment Plan Physical Therapy Treatment Plan Bed Mobility Training,Transfer Training,Gait Training, Discharge Planning Discharge Recommendations PT Discharge Recommendations Home with Assistance Other Discharge Recommendations May benefit from Home Health PT Equipment Needed for Home Before FWW has been ordered Discharge Transportation Needs at Discharge Private Vehicle
[2021-05-12] MEDS: ONDANSETRON 4 MG/2 ML INJ IV (17:27)
[2021-05-12] MEDS: LACTOBACILLUS ACIDOPHILUS TABLET 1 EACH PO (17:27)
--- NOTE | 2021-05-12 18:19 | PC.NURSE ---
Evening Shift Note Attempting to discharge patient this evening. Per CM plan for patient to discharge home this evening after dinner. Per patient, feeling ill and not well post dinner. This RN asked patient what can be done for patient to facilitate discharge this evening. Patient states he needs to take a nap to feel better. This RN updated MD on patient status and hesitancy to discharge. Per MD cannot force patient to discharge home if feeling unwell. Patient updated and states that he should feel better in the next hour. This RN will update awake overnight counselor nurse in discharge status. Patient able to discharge home later tonight if feeling better, otherwise MD ok if patient stays overnight. Discharge pending, taxi voucher in patient's chart.
[2021-05-12 19:00] VITALS: O2SAT 97
[2021-05-12 20:01] VITALS: BP 105/71; PULSE 60; RESP 16; TEMP 36.2; O2SAT 97
[2021-05-13 02:33] VITALS: RESP 18
[2021-05-13 06:22] LABS: Add Manual Diff / Slide Review NO; Basophils Absolute Auto 0 /uL (0-100); Basophils Percent Auto 0.7 % (0-2); Eosinophils Absolute Auto 200 /uL (0-450); Eosinophils Percent Auto 5.3 % (2-4); Hematocrit 35.7 % (41-53); Hemoglobin 11.8 g/dL (13.5-17.5); Lymphocytes Absolute Auto 1200 /uL (1100-4500); Lymphocytes Percent Auto 31.3 % (25-40); Mean Corpuscular Hemoglobin 31.1 PG (26-34); Mean Corpuscular Volume 94.3 fL (80-100); Monocytes Absolute Auto 500 /uL (0-900); Monocytes Percent Auto 11.9 % (3-14); Neutrophils Absolute Auto 1900 /uL (1500-7000); Neutrophils Percent Auto 50.8 % (50-75); Platelet Count 65 X10^3/uL (150-400); Red Blood Cell Count 3.79 X10^6/uL (4.5-5.9); Red Cell Distribution Width 20.5 % (11.6-14.8); White Blood Cell Count 3.8 X10^3/uL (4.5-11.0)
[2021-05-13 06:31] VITALS: BP 107/64; PULSE 64; RESP 16; TEMP 36.6; O2SAT 98
[2021-05-13 06:31] LABS: Alanine Aminotransferase 27 IU/L (<50); Albumin 2.6 g/dL (3.5-5.0); Albumin Globulin Ratio 0.8 (1.0-2.8); Alkaline Phosphatase 82 U/L (38-126); Aspartate Aminotransferase 35 IU/L (17-59); BUN Creatinine Ratio 26.4 (6-22); Bilirubin Total 0.4 mg/dL (0.2-1.3); Blood Urea Nitrogen 23 mg/dL (9-20); Calcium 9.4 mg/dL (8.4-10.2); Carbon Dioxide 28 mmol/L (22-32); Chloride 99 mmol/L (98-107); Estimated Glomerular Filt Rate > 60.0 mL/min (>60); Globulin 3.2 g/dL (1.7-4.1); Glucose 91 mg/dL (80-110); HEMOLYSIS < 15 (0-50); Potassium 3.8 mmol/L (3.4-5.1); Sodium 133 mmol/L (137-145); Total Protein 5.8 g/dL (6.3-8.2)
[2021-05-13 06:32] LABS: Phosphorous 3.1 mg/dL (2.3-3.7)
[2021-05-13 06:49] LABS: Anisocytosis 2+
[2021-05-13] MEDS: DOXYCYCLINE HYCLATE 100 MG TABLET PO (08:15)
[2021-05-13] MEDS: AMOXICILLIN/CLAV 875/125 MG 1 TAB PO (08:15)
[2021-05-13] MEDS: chlordiazePOXIDE 25 MG CAPSULE PO (08:15)
[2021-05-13] MEDS: CHOLESTYRAMINE/ASPARTAME 4 GM PACK PO (08:15)
[2021-05-13] MEDS: LACTOBACILLUS ACIDOPHILUS TABLET 1 EACH PO (08:15)
[2021-05-13] MEDS: MULTIVITAMIN 1 TABLET 1 TAB PO (08:15)
[2021-05-13] MEDS: THIAMINE 100 MG TABLET PO (08:16)
[2021-05-13] MEDS: FOLIC ACID 1 MG TABLET PO (08:16)
[2021-05-13] MEDS: METOPROLOL IR 50 MG TABLET PO (08:16)
--- NOTE | 2021-05-13 08:44 | P.DS_ITS ---
History of Present Illness History of Present Illness Date Patient Seen: 05/13/21 Chief complaint: ETOH Narrative: Mr. Webster is a 65M with H alcohol abuse/dependence, HTN, documented cirrhosis, paroxysmal atrial fibrillation, left renal mass with recent ablation who is presenting requesting detox from alcohol. He states he has had a long history of alcohol use. He has been to rehab many times. He continues to drink significantly, he states 750cc of alcohol daily. His last drink was within 24 hours. He has had withdrawal before, no seizures, has had DTs. He was feeling tremulous before receiving phenobarb in the ED. HE notes he has been told he has atrial fibrillation, he has had frequent falls, and has not been prescribed anticoagulation. He has been prescribed metoprolol, which he took, but has not been taking recently as he did not refill his prescription. For the last two days he has had swelling and pain on his left upper back. No fevers/chills. No trauma. No nausea/vomiting, diarrhea, abdominal pain. No dysuria In the ED, he was initially noted to be mildly tachycardic with heart rate in the 90s. He was observed on telemetry to have intermittent periods of tachyc ardia with rate in the 130s-140s. EKG notable for atrial fibrillation. Labs notable for WBC 3.7, platelets 103, creatinine 0.72, magnesium 1.4, ast 110, alt 56, alk phos 128. EtOH level 227. He was given phenobarbital and admitted for further treatment. Family history: Sister - alcohol abuse Discharge Providers Provider Date of admission: 05/10/21 01:17 Discharge Date: 05/13/21 Primary care physician: Maria Teresa Talley PA-C Consults: 05/09/21 22:45 Consult to [facility] - Shift Mgr Stat Comment: alcohol, detox, etc [facility] Consult: Behavioral Health Assess 05/10/21 01:47 Consult to Dietitian, Adult Routine Comment: Reason For Exam: alcoholism 05/10/21 01:51 Consult to [facility] - Shift Mgr Routine Comment: etoh abuse, interested in detox 05/10/21 14:26 Consult to General Surgery Routine Comment: Consulting Provider: Zacarias Dominguez Reason for consultation: INFECTED CYST TO THE UPPER BACK Has provider been notified: No 05/12/21 10:24 Consult to Physical Therapy Evaluate & Treat Comment: Physician Instructions: Evaluate and Treat 05/12/21 10:25 Consult to Occupational Therapy Evaluate & Treat Comment: Physician Instructions: Evaluate and treat 05/12/21 13:12 Consult to Home Health Routine Comment: Reason For Exam: Walker for home use due to weakness Discharge provider: Jenna Kebede MD Summary Hospital Course Discharge Diagnosis: 1. Acute Alcohol Intoxication without withdrawal 2. History of Alcohol Use Disorder 3. Obesity 4. Hypomagnesemia, present on admission now resolved 5.hypertension 6. Sebaceous Cyst-s/p incision and drainage Hospital Course: PATIENT ADMITTED FOR ALCOHOL DETOX ?HAS BEEN ON LIBRIUM AND SHOWING NO SIGN? OF DTS. ? AT THIS TIME I FEEL PATIENT WOULD DO WELL AT HOME ?HE REFUSED ALCOHOL REHAB ? WHICH WAS OFFERED TO HIM ON ADMISSION Patient reports he feels much better today. He was able to ambulate independently and feels ready for discharge home. He will continue wet to dry dressings to his back. He will follow up with his PCP this week for further evaluation. Wound cultures grew Coag Negative Staph Status at Discharge Cognitive/behavioral status at discharge: oriented Functional status at discharge: independent ambulation Overall status at discharge: patient is progressing back to baseline Exam Vital Signs (past 8 hours): - 05/13/21 02:33 05/13/21 06:31 Temperature 97.9 F Pulse Rate 64 Respiratory Rate 18 16 Blood Pressure 107/64 Pulse Oximetry 98 Oxygen Delivery Method Room Air Oxygen Flow Rate 0 Narrative Exam Narrative: pleasant male sitting up in no acute distress Resp Other: Lungs: clear to auscultation Cardio Other: RRR nl Sl S2 GI Other: soft/ non tender/ nondistended Back/Spine/Pelvis Other: 1 X 1 cm wound, with dressing in place, no erythema, no exudates Psych Other: calm, awake appropriate, normal thought content. no hallucinations Objective Labs Result Diagrams: 05/13/21 05:46 05/13/21 05:46 Labs: Laboratory Results - last 24 hr 05/12/21 05/12/21 05/13/21 13:50 13:50 05:46 WBC 4.5 3.8 L RBC 4.20 L 3.79 L Hgb 13.1 L 11.8 L Hct 39.2 L 35.7 L MCV 93.2 94.3 MCH 31.2 31.1 MCHC 33.4 33.0 RDW 20.2 H 20.5 H Plt Count 70 L 65 L Neut % (Auto) 58.5 50.8 Lymph % (Auto) 25.7 31.3 [place] % (Auto) 9.4 11.9 Eos % (Auto) 5.7 H 5.3 H Baso % (Auto) 0.7 0.7 Neut # (Auto) 2600 1900 Lymph # (Auto) 1200 1200 [place] # (Auto) 400 500 Eos # (Auto) 300 200 Baso # (Auto) 0 0 RBC Morphology See below See below Anisocytosis 2+ H 2+ H Sodium 132 L Potassium 4.1 Chloride 97 L Carbon Dioxide 31 BUN 28 H Creatinine 0.92 Estimated GFR > 60.0 BUN/Creatinine Ratio 30.4 H Glucose 89 Calcium 9.5 Phosphorus Total Bilirubin 0.9 AST 43 ALT 31 Alkaline Phosphatase 113 Total Protein 6.6 Albumin 3.2 L Globulin 3.4 Albumin/Globulin Ratio 0.9 L 05/13/21 05/13/21 05:46 05:46 WBC RBC Hgb Hct MCV MCH MCHC RDW Plt Count Neut % (Auto) Lymph % (Auto) [place] % (Auto) Eos % (Auto) Baso % (Auto) Neut # (Auto) Lymph # (Auto) [place] # (Auto) Eos # (Auto) Baso # (Auto) RBC Morphology Anisocytosis Sodium 133 L Potassium 3.8 Chloride 99 Carbon Dioxide 28 BUN 23 H Creatinine 0.87 Estimated GFR > 60.0 BUN/Creatinine Ratio 26.4 H Glucose 91 Calcium 9.4 Phosphorus 3.1 D Total Bilirubin 0.4 AST 35 ALT 27 Alkaline Phosphatase 82 Total Protein 5.8 L Albumin 2.6 L Globulin 3.2 Albumin/Globulin Ratio 0.8 L [facility] Medical History Alcohol use disorder, severe, in early remission Alcoholism Cirrhosis Hypertension Major depression Surgical History H/O rhinoplasty History of fasciotomy 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 Family History Unknown Cancer Social History household members: friend(s) Smoking Status: Former smoker alcohol intake: current substance use type: does not use Discharge Assessment & Plan Assessment and Plan Assessment: 1. Alcohol Intoxication 2. Alcohol dependence-patient refused treatment 3. Sebaceous Cyst-s/p I&D 4. Hypertension Plan of Treatment: Continue medications as prescribed. Wet-to-dry dressing changes F/u with PCP/Maria Teresa Arnold in one week Discharge Plan Discharge Plan Patient Disposition: Home Health Service Discharge orders & Medications Prescriptions: New Bacid 1 billion cell- 250 mg Tablet 1 tab PO TIDWM Qty: 120 0RF amoxicillin-pot clavulanate [Augmentin] 875-125 mg Tablet 1 tab PO BID Qty: 20 0RF cholestyramine-aspartame [Prevalite] 4 gram Powder In Packet 4 g PO QID Qty: 12 0RF doxycycline hyclate 100 mg Tablet 100 mg PO BID Qty: 20 0RF folic acid 1 mg Tablet 1 mg PO DAILY Qty: 120 0RF multivitamin with folic acid [Tab-A-Michael] 400 mcg Tablet 1 tab PO DAILY Qty: 60 0RF thiamine mononitrate (vit B1) 100 mg Tablet 100 mg PO DAILY Qty: 60 0RF metoprolol tartrate 25 mg tablet 25 mg PO BID Qty: 60 0RF gabapentin 300 mg capsule 300 mg PO TID Qty: 120 0RF trazodone 50 mg tablet 50 mg PO BEDTIME Qty: 60 0RF melatonin 10 mg capsule 10 mg PO BEDTIME PRN (Reason: sleep) Qty: 60 0RF buspirone 10 mg tablet 10 mg PO BID Qty: 60 0RF sucralfate [Carafate] 1 gram tablet 1 g PO QACHS Qty: 240 0RF famotidine [Pepcid AC] 20 mg tablet 40 mg PO BID Qty: 120 0RF Continued multivitamin [Daily Multi-Vitamin] Tablet 1 tab PO QAM 0RF vitamin B complex Tablet 1 tab PO DAILY 0RF aspirin [Adult Low Dose Aspirin] 81 mg tablet,delayed release (DR/EC) 81 mg PO DAILY 0RF Label Comments: shoulde be but not currently cholecalciferol (vitamin D3) 25 mcg (1,000 unit) capsule 4,000 unit PO DAILY 0RF omeprazole 20 mg capsule,delayed release(DR/EC) 20 mg PO QAM 0RF tamsulosin [Flomax] 0.4 mg capsule 0.4 mg PO QPM Qty: 0 0RF trazodone 100 mg tablet 100 mg PO BEDTIME PRN (Reason: Insomnia) Qty: 30 5RF Rx Instructions: Continue 100 mg by mouth at bedtime testosterone cypionate 200 mg/mL oil 200 mg IM Q2W 0RF Label Comments: inject 1 milliliter intramuscularly every 2 weeks gabapentin 600 mg tablet 600 mg PO TID PRN (Reason: Back Pain) 0RF lorazepam [Ativan] 1 mg tablet See Rx Instructions .ROUTE .COMPLEX Qty: 10 0RF Rx Instructions: 1 mg orally as needed ;QID x 24 hrs, TID x 24hrs, BID x 24 hrs, daily x ! testosterone cypionate 200 mg/mL oil 200 mg IM Q3W 0RF Label Comments: inject 1 milliliter intramuscularly every 2 weeks Follow up/Referrals: Maria Teresa Talley PA-C [Primary Care Provider] - Diet/Activity/Treatments Diet: Low-fat and Low-cholesterol Activity: TOLERATED Discharge Data Primary Care Provider: Maria Teresa Talley Quality VTE Deep Vein Thrombosis/Pulmonary Embolism Present on Admission: No
--- NOTE | 2021-05-13 08:51 | CM.DPNOTE ---
Faxed DC summary per Valorie to [facility] and received fax conf. Stephanie Nunn CM Asst.
[2021-05-13 09:03] VITALS: BP 101/72; PULSE 66; RESP 16; TEMP 36.2; O2SAT 100
--- NOTE | 2021-05-13 11:11 | PC.NURSE ---
Discharge Note Patient A&O, VSS, RA no complaints of pain/discomfort. Discharge packet reviewed with patient all questions/concerns addressed. TELE/PIV discomfort. Patient reminded to car pick up driver prescriptions at preferred pharmacy on way home. All belongings packed and given to patient along with discharge packet. Patient taken down via wheelchair to taxi.
--- NOTE | 2021-05-13 11:13 | CM.DPC ---
DCP Cont: Patient did not go home yesterday, for he was supposed to discharge yesterday. He is discharging today. Went ahead and did a new taxi voucher, and called [facility]. They are to pick him up at 11:00. Verified that the cost of transport is $40.00. Patient will be taken down to the ER for product picker. Nurse, Radha, is aware. [facility], [facility], had left a message stating, they can't accept patient due to his history of ETOH. Called Neda at [facility], for according to notes, referral had been sent to [place] and [place]. Neda confirmed that she did receive the referral. Will have Stephanie, zoning assistant, fax over the DC summary upon discharge. P: Patient discharging home via taxi with [facility]. Meme Falk RN/Mortgage Analyst
== END 2021-05-13 10:55 | disposition home health service (06) | DRG 897 ==
LOC: ED 05-10 01:09 → AC 05-10 01:18
PROVIDERS: Hospitalist; Admitting Provider Internal Medicine; Emergency Provider Emergency Medicine; PCP Student in an Organized Health Care Education/Training Program; Referring Provider Emergency Medicine; Visit Provider Internal Medicine
DX: F10.229 Alcohol dependence with intoxication, unspecified (principal); L03.312 Cellulitis of back [any part except buttock and flank]; I96 Gangrene, not elsewhere classified; Y90.7 Blood alcohol level of 200-239 mg/100 ml; L72.3 Sebaceous cyst; I48.91 Unspecified atrial fibrillation; D69.6 Thrombocytopenia, unspecified; E83.42 Hypomagnesemia; I10 Essential (primary) hypertension; F32.A Depression, unspecified; Z87.891 Personal history of nicotine dependence; Z20.822 Contact with and (suspected) exposure to COVID-19
CPT/HCPCS: 10060; 36415; 80048; 80053; 80076; 80305; 80320; 82550; 83690; 83735; 83880; 84100; 84443; 84484; 85025; 87070; 87075; 87147; 87205; 87493; 87635; 93005; 93306; 96374; 96375; 97116; 97161; 99232; 99284; C9803; J1650; J2060; J2405; J2560; J3475

== ENCOUNTER 2021-05-21 00:29 | Emergency (ER) | payer MEDICARE, OTHER, SELFPAY ==
[2021-05-10 01:35] VITALS: BMI 34.9
[2021-05-21] VITALS (15 sets, daily range): BP systolic 91–129; BP diastolic 47–71; PULSE 62–76; RESP 17; TEMP 36.6; O2SAT 93–100; BMI 35.7
--- NOTE | 2021-05-21 00:51 | ED_ITS ---
HPI - Nausea/Vomiting/Diarrhea General Chief complaint: Dizziness Stated complaint: low blood pressure all day Time Seen by Provider: 05/21/21 00:34 Source: patient Mode of arrival: Ambulatory Limitations: no limitations History of Present Illness HPI Narrative: 65-year-old male former smoker with extensive alcohol history and atrial fibrillation presents with chief complaint of multiple episodes of diarrhea over the past week and feeling dizzy, weak and lightheaded over the course of the day, particularly upon standing. He was recently admitted for alcohol withdrawal symptoms and upon discharge it was noted he had an abscess on his back, he was given a prescription for Augmentin and started having loose stools within 1 day. He had been doing well otherwise up until this afternoon when he started feeling dizzy upon standing and noted his blood pressure to be in the 90s. On his arrival here he was in the 120s and 130s. He denies any chest pain or shortness of breath. He has no fever or chills. He has no blood in his stool denies any black and tarry stool. Other than the new antibiotic he denies any new medications or dietary change Related Data Home Medications Medication Instructions Recorded Confirmed tamsulosin 0.4 mg capsule (Flomax) 0.4 mg PO QPM #0 cap 06/23/19 04/25/21 testosterone cypionate 200 mg/mL 200 mg IM Q3W ml 06/23/19 04/25/21 intramuscular oil aspirin 81 mg tablet,delayed 81 mg PO DAILY 10/11/19 04/25/21 release (Adult Low Dose Aspirin) cholecalciferol (vitamin D3) 25 4,000 unit PO DAILY cap 10/11/19 04/25/21 mcg (1,000 unit) capsule multivitamin (Daily Multi-Vitamin) 1 tab PO QAM 10/11/19 04/25/21 omeprazole 20 mg capsule,delayed 20 mg PO QAM 10/11/19 04/25/21 release vitamin B complex 1 tab PO DAILY 10/11/19 04/25/21 gabapentin 600 mg tablet 600 mg PO TID PRN 01/03/21 04/25/21 testosterone cypionate 200 mg/mL 200 mg IM Q2W 01/03/21 04/25/21 intramuscular oil Previous Rx's Medication Instructions Recorded lorazepam 1 mg tablet (Ativan) See Rx Instructions .ROUTE 01/03/21 .COMPLEX #10 tab trazodone 100 mg tablet 100 mg PO BEDTIME PRN #30 tab 01/11/21 L.acidophilus-L.bulgar-B.bifid-S.thermoph 1 tab PO TIDWM #120 tab 05/12/21 1 billion cell-250 mg tablet (Bacid) amoxicillin 875 mg-potassium 1 tab PO BID #20 tab 05/12/21 clavulanate 125 mg tablet (Augmentin) buspirone 10 mg tablet 10 mg PO BID #60 tab 05/12/21 cholestyramine-aspartame 4 gram 4 g PO QID #12 ea 05/12/21 oral powder for susp in a packet (Prevalite) doxycycline hyclate 100 mg tablet 100 mg PO BID #20 tab 05/12/21 famotidine 20 mg tablet (Pepcid AC) 40 mg PO BID #120 tab 05/12/21 folic acid 1 mg tablet 1 mg PO DAILY #120 tab 05/12/21 gabapentin 300 mg capsule 300 mg PO TID #120 cap 05/12/21 melatonin 10 mg capsule 10 mg PO BEDTIME PRN #60 cap 05/12/21 metoprolol tartrate 25 mg tablet 25 mg PO BID #60 tab 05/12/21 multivitamin with folic acid 400 1 tab PO DAILY #60 tab 05/12/21 mcg tablet (Tab-A-Michael) sucralfate 1 gram tablet (Carafate) 1 g PO QACHS #240 tab 05/12/21 thiamine mononitrate (vit B1) 100 100 mg PO DAILY #60 tab 05/12/21 mg tablet trazodone 50 mg tablet 50 mg PO BEDTIME #60 tab 05/12/21 loperamide 2 mg capsule 2 mg PO Q6H PRN #10 cap 05/21/21 Allergies Allergy/AdvReac Type Severity Reaction Status Date / Time hydrochlorothiazide Allergy Severe Anaphylaxis Verified 04/25/21 09:30 [HYDROCHLOROTHIAZIDE] lisinopril [LISINOPRIL] Allergy Severe Anaphylaxis Verified 04/25/21 09:30 Review of Systems Review of Systems Narrative: GENERAL see HPI HEENT: Denies sinus pain, ear pain, sore throat, difficulty swallowing, dizziness. RESPIRATORY: Denies dyspnea, cough, wheezing, hemoptysis, sputum. CARDIOVASCULAR: Denies chest pain, palpitations, orthopnea, edema, GASTROINTESTINAL: See HPI : Denies dysuria, frequency, incontinence, hematuria, urinary retention. MUSCULOSKELETAL: denies weakness, joint pain, or bony pain SKIN: Denies rash, skin lesions, or other NEUROLOGIC: Denies weakness, headache, numbness, change in speech, confusion, seizures, incoordination. PSYCHIATRIC: No concerning psychosocial issues. 12 point review of systems is negative except for those stated above 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 Family History Unknown Cancer Social History household members: friend(s) Smoking Status: Former smoker alcohol intake: current substance use type: does not use Smoking Status: Former smoker alcohol intake frequency: 0-2 drinks per day Alcohol type: hard liquor Substance Use Type: does not use Exam Narrative Exam Narrative: GENERAL: [65 year old patient appears stated age. Well-developed patient, in mild distress. HEAD: Atraumatic. Normocephalic. EYES: Pupils equal round and reactive. Extraocular motions intact. No scleral icterus. No injection or drainage. ENT: Nose without bleeding, purulent drainage. Throat without erythema, tonsillar hypertrophy or exudate. Airway patent. NECK: Trachea midline. Non tender CARDIOVASCULAR: Regular rate and rhythm without murmurs, gallops, or rubs. RESPIRATORY: Clear to auscultation. Breath sounds equal bilaterally. No wheezes, rales, or rhonchi. GASTROINTESTINAL: Abdomen soft, non-tender, nondistended. EXTREMITIES: No edema or joint tenderness. BACK: Nontender without deformity or crepitance. No flank tenderness. NEURO: AOx3. SKIN: No rash or erythema of visible areas Initial Vital Signs Initial Vital Signs: Vital Signs Pulse Rate 75 05/21/21 00:38 Pulse Oximetry 100 05/21/21 00:38 Course Orders Ordered: ED Orders 05/21/21 01:00 Complete Blood Count AUTO DIFF Stat Comprehensive Metabolic Panel Stat 05/21/21 03:40 GI Panel (Film Array) Stat Stool Culture Stat Discontinued Medications Sodium Chloride (Normal Saline 0.9%) 1,000 mls @ 1,000 mls/hr IV BOLUS ONE Stop: 05/21/21 01:51 Last Infusion: 05/21/21 05:11 Dose: 0 mls/hr Documented by: Admin: 05/21/21 01:10 Dose: 1,000 mls/hr Documented by: RICKI Vital Signs Vital signs: Vital Signs - 8 hr 05/21/21 00:38 05/21/21 00:39 05/21/21 01:00 Temperature 97.9 F Pulse Rate 75 76 71 Pulse Rate [Orthostatic Lying] Pulse Rate [Orthostatic Sitting] Pulse Rate [Orthostatic Standing] Respiratory Rate 17 Blood Pressure 129/60 120/60 Blood Pressure [Orthostatic Lying] Blood Pressure [Orthostatic Sitting] Blood Pressure [Orthostatic Standing] Pulse Oximetry 100 100 99 05/21/21 01:30 05/21/21 02:00 05/21/21 02:30 Temperature Pulse Rate 74 73 73 Pulse Rate [Orthostatic Lying] Pulse Rate [Orthostatic Sitting] Pulse Rate [Orthostatic Standing] Respiratory Rate Blood Pressure 94/47 L 91/52 L Blood Pressure [Orthostatic Lying] Blood Pressure [Orthostatic Sitting] Blood Pressure [Orthostatic Standing] Pulse Oximetry 94 93 99 05/21/21 02:31 05/21/21 03:00 05/21/21 03:23 Temperature Pulse Rate 72 69 71 Pulse Rate [Orthostatic Lying] Pulse Rate [Orthostatic Sitting] Pulse Rate [Orthostatic Standing] Respiratory Rate Blood Pressure 122/57 L 118/64 123/71 Blood Pressure [Orthostatic Lying] Blood Pressure [Orthostatic Sitting] Blood Pressure [Orthostatic Standing] Pulse Oximetry 98 97 97 05/21/21 03:24 05/21/21 03:25 05/21/21 03:26 Temperature Pulse Rate 67 76 Pulse Rate [Orthostatic Lying] 72 Pulse Rate [Orthostatic Sitting] 74 Pulse Rate [Orthostatic Standing] 62 Respiratory Rate Blood Pressure 125/65 117/63 Blood Pressure [Orthostatic Lying] 123/71 Blood Pressure [Orthostatic Sitting] 125/64 Blood Pressure [Orthostatic Standing] 117/63 Pulse Oximetry 97 97 MDM - Nausea/Vomiting/Diarrhea Lab Data Result diagrams: 05/21/21 01:00 05/21/21 01:00 Labs: Lab Results 05/21/21 05/21/21 05/21/21 Range/Units 01:00 01:00 03:40 WBC 3.8 L (4.5-11.0) X10^3/uL RBC 3.38 L (4.5-5.9) X10^6/uL Hgb 10.7 L (13.5-17.5) g/dL Hct 31.9 L (41-53) % MCV 94.5 (80-100) fL MCH 31.8 (26-34) PG MCHC 33.6 (30-36) % RDW 21.2 H (11.6-14.8) % Plt Count 152 (150-400) X10^3/uL Neut % (Auto) 30.7 L (50-75) % Lymph % (Auto) 45.9 H (25-40) % Gillespie % (Auto) 16.8 H (3-14) % Eos % (Auto) 3.9 (2-4) % Baso % (Auto) 2.7 H (0-2) % Neut # (Auto) 1200 L (5166-2925) /uL Lymph # (Auto) 1800 (8248-8870) /uL Gillespie # (Auto) 600 (0-900) /uL Eos # (Auto) 200 (0-450) /uL Baso # (Auto) 100 (0-100) /uL RBC Morphology See below Anisocytosis 3+ H Sodium 136 L (137-145) mmol/L Potassium 4.5 (3.4-5.1) mmol/L Chloride 103 (98-107) mmol/L Carbon Dioxide 31 (22-32) mmol/L BUN 24 H (9-20) mg/dL Creatinine 0.93 (0.66-1.25) mg/dL Estimated GFR > 60.0 (>60) mL/min BUN/Creatinine Ratio 25.8 H (6-22) Glucose 90 (80-110) mg/dL Calcium 9.4 (8.4-10.2) mg/dL Total Bilirubin 0.3 (0.2-1.3) mg/dL AST 25 (17-59) IU/L ALT 19 (<50) IU/L Alkaline Phosphatase 61 (38-126) U/L Total Protein 6.4 (6.3-8.2) g/dL Albumin 3.1 L (3.5-5.0) g/dL Globulin 3.3 (1.7-4.1) g/dL Albumin/Globulin Ratio 0.9 L (1.0-2.8) Stl C. cayetanensis PCR Not detected (Not Detect) Stool Rotavirus (PCR) Not detected (Not Detect) Stool Adenovirus (PCR) Not detected (Not Detect) Stool Astrovirus (PCR) Not detected (Not Detect) Stool Cryptosporidium PCR Not detected (Not Detect) Stl E.coli Shiga Tox PCR Not detected (Not Detect) St Sh/Enteroin Ecoli PCR Not detected (Not Detect) Stool E coli O157 PCR Not Reportable Stl Enterotoxigenic E PCR Not detected (Not Detect) Stool EPEC (PCR) Not detected (Not Detect) Stl E. histolytica PCR Not detected (Not Detect) Stool Giardia Lamblia PCR Not detected (Not Detect) Stool Sapovirus (PCR) Not detected (Not Detect) Stl P. shigelloides PCR Not detected (Not Detect) St Y.enterocolitica PCR Not detected (Not Detect) Stool Vibrio (PCR) Not detected (Not Detect) Stl Vibrio cholerae PCR Not detected (Not Detect) Stl Enteroaggr Ecoli PCR Not detected (Not Detect) Stl Norovirus GI/GII PCR Not detected (Not Detect) Campylobacter (PCR) Not detected (Not Detect) C. difficile Tox (PCR) Not detected (Not Detect) Salmonella (PCR) Not detected (Not Detect) Urine Dip Bedside Urine Glucose Negative Bedside Urine Bilirubin - Negative Bedside Urine Ketone - Negative Urine Specific [place] 1.025 Bedside Urine Occult Blood - Negative Bedside Urine pH 6.0 Bedside Urine Protein - Negative Bedside Urine Urobilinogen - Negative Bedside Urine Nitrite - Negative Bedside Urine Leukocytes - Negative Esterase MDM Narrative Medical decision making narrative: Patient presents with about 1 week of multiple loose stools, last yesterday, and dizziness and lightheadedness today, particularly upon standing. His symptoms started soon after starting an antibiotic. He had a GI panel which was unremarkable. Labs are also unremarkable. Patient was given IV fluids and feels much better. Orthostatic vital signs are reassuring. Patient has been given return precautions and questions have been answered to his apparent satisfaction Discharge Plan Departure Patient Disposition: Home Clinical Impression: Acute dehydration, Diarrhea Instructions: Diarrhea Activity Restrictions/Additional Instructions: *You have been diagnosed with [dizziness and low blood pressure, likely due to dehydration secondary to frequent diarrhea. You have been given IV fluids and vital signs have improved. Her lab work is very reassuring and the stool sampl es does not show any sign of a bacterial cause of diarrhea that requires a specific treatment. *What to do: *Please continue to take your regular medications as directed. [ x] New medication prescriptions sent to your pharmacy: [ ] [ ] New medication written as a paper prescription [ ] No new medications given *Please follow up with your primary care provider in 2-3 days, call for an appointment. Let them know you were seen in the Emergency Department and that we ask that you be seen in follow up. We will electronically transmit a record of today's note if your PCP is in our system *If you do not have a primary care provider please contact the [facility] Resource line at [phone]. They will ask some questions about your medical history and help get you set up with a doctor in the community. *Return to Emergency Department if you should have any new, worsening or concerning symptoms, such as [fever greater than 101 F, shaking chills, worse michael pain, persistent vomiting or other bothersome symptoms] Prescriptions: New loperamide 2 mg capsule 2 mg PO Q6H PRN (Reason: loose stool) Qty: 10 0RF No Action multivitamin [Daily Multi-Vitamin] Tablet 1 tab PO QAM 0RF vitamin B complex Tablet 1 tab PO DAILY 0RF aspirin [Adult Low Dose Aspirin] 81 mg tablet,delayed release (DR/EC) 81 mg PO DAILY 0RF Label Comments: shoulde be but not currently cholecalciferol (vitamin D3) 25 mcg (1,000 unit) capsule 4,000 unit PO DAILY 0RF omeprazole 20 mg capsule,delayed release(DR/EC) 20 mg PO QAM 0RF tamsulosin [Flomax] 0.4 mg capsule 0.4 mg PO QPM Qty: 0 0RF trazodone 100 mg tablet 100 mg PO BEDTIME PRN (Reason: Insomnia) Qty: 30 5RF Rx Instructions: Continue 100 mg by mouth at bedtime testosterone cypionate 200 mg/mL oil 200 mg IM Q2W 0RF Label Comments: inject 1 milliliter intramuscularly every 2 weeks gabapentin 600 mg tablet 600 mg PO TID PRN (Reason: Back Pain) 0RF lorazepam [Ativan] 1 mg tablet See Rx Instructions .ROUTE .COMPLEX Qty: 10 0RF Rx Instructions: 1 mg orally as needed ;QID x 24 hrs, TID x 24hrs, BID x 24 hrs, daily x ! testosterone cypionate 200 mg/mL oil 200 mg IM Q3W 0RF Label Comments: inject 1 milliliter intramuscularly every 2 weeks Bacid 1 billion cell- 250 mg Tablet 1 tab PO TIDWM Qty: 120 0RF amoxicillin-pot clavulanate [Augmentin] 875-125 mg Tablet 1 tab PO BID Qty: 20 0RF cholestyramine-aspartame [Prevalite] 4 gram Powder In Packet 4 g PO QID Qty: 12 0RF doxycycline hyclate 100 mg Tablet 100 mg PO BID Qty: 20 0RF folic acid 1 mg Tablet 1 mg PO DAILY Qty: 120 0RF multivitamin with folic acid [Tab-A-Michael] 400 mcg Tablet 1 tab PO DAILY Qty: 60 0RF thiamine mononitrate (vit B1) 100 mg Tablet 100 mg PO DAILY Qty: 60 0RF metoprolol tartrate 25 mg tablet 25 mg PO BID Qty: 60 0RF gabapentin 300 mg capsule 300 mg PO TID Qty: 120 0RF trazodone 50 mg tablet 50 mg PO BEDTIME Qty: 60 0RF melatonin 10 mg capsule 10 mg PO BEDTIME PRN (Reason: sleep) Qty: 60 0RF buspirone 10 mg tablet 10 mg PO BID Qty: 60 0RF sucralfate [Carafate] 1 gram tablet 1 g PO QACHS Qty: 240 0RF famotidine [Pepcid AC] 20 mg tablet 40 mg PO BID Qty: 120 0RF Referrals: Maria Teresa Talley PA-C [Primary Care Provider] -
[2021-05-21] MEDS: SODIUM CHLORIDE 0.9% 1,000 ML 1000 ML IV (01:10)
[2021-05-21 01:14] LABS: Add Manual Diff / Slide Review NO; Basophils Absolute Auto 100 /uL (0-100); Basophils Percent Auto 2.7 % (0-2); Eosinophils Absolute Auto 200 /uL (0-450); Eosinophils Percent Auto 3.9 % (2-4); Hematocrit 31.9 % (41-53); Hemoglobin 10.7 g/dL (13.5-17.5); Lymphocytes Absolute Auto 1800 /uL (1100-4500); Lymphocytes Percent Auto 45.9 % (25-40); Mean Corpuscular HGB Conc 33.6 % (30-36); Mean Corpuscular Hemoglobin 31.8 PG (26-34); Mean Corpuscular Volume 94.5 fL (80-100); Monocytes Absolute Auto 600 /uL (0-900); Monocytes Percent Auto 16.8 % (3-14); Neutrophils Absolute Auto 1200 /uL (1500-7000); Neutrophils Percent Auto 30.7 % (50-75); Platelet Count 152 X10^3/uL (150-400); Red Blood Cell Count 3.38 X10^6/uL (4.5-5.9); Red Cell Distribution Width 21.2 % (11.6-14.8); White Blood Cell Count 3.8 X10^3/uL (4.5-11.0)
[2021-05-21 01:20] LABS: Alanine Aminotransferase 19 IU/L (<50); Albumin 3.1 g/dL (3.5-5.0); Albumin Globulin Ratio 0.9 (1.0-2.8); Alkaline Phosphatase 61 U/L (38-126); Aspartate Aminotransferase 25 IU/L (17-59); BUN Creatinine Ratio 25.8 (6-22); Bilirubin Total 0.3 mg/dL (0.2-1.3); Blood Urea Nitrogen 24 mg/dL (9-20); Calcium 9.4 mg/dL (8.4-10.2); Carbon Dioxide 31 mmol/L (22-32); Chloride 103 mmol/L (98-107); Estimated Glomerular Filt Rate > 60.0 mL/min (>60); Globulin 3.3 g/dL (1.7-4.1); Glucose 90 mg/dL (80-110); HEMOLYSIS < 15 (0-50); Potassium 4.5 mmol/L (3.4-5.1); Sodium 136 mmol/L (137-145); Total Protein 6.4 g/dL (6.3-8.2)
[2021-05-21 04:10] LABS: Anisocytosis 3+
[2021-05-21 05:46] LABS: Adenovirus F 40/41 Not Detected (Not Detect); Astrovirus Not Detected (Not Detect); Campylobacter Not Detected (Not Detect); Clostridium difficile toxin AB Not Detected (Not Detect); Cryptosporidium Not Detected (Not Detect); Cyclospora cayetanensis Not Detected (Not Detect); Entamoeba histolytica Not Detected (Not Detect); Enteroaggregative E.coli Not Detected (Not Detect); Enteropathogenic E.coli Not Detected (Not Detect); Enterotoxigenic E.coli It/st Not Detected (Not Detect); Giardia lamblia Not Detected (Not Detect); Norovirus GI/GII Not Detected (Not Detect); Plesiomonsa shigelloides Not Detected (Not Detect); Rotavirus A Not Detected (Not Detect); Salmonella Not Detected (Not Detect); Sapovirus Not Detected (Not Detect); Shiga-like toxin-prod E.coli Not Detected (Not Detect); Shigella/Enteroinvasive E.coli Not Detected (Not Detect); Vibrio Not Detected (Not Detect); Vibrio cholerae Not Detected (Not Detect); Yersinia enterocolitica Not Detected (Not Detect)
== END 2021-05-21 06:10 | disposition home or self-care (01) ==
PROVIDERS: Emergency Provider Emergency Medicine; PCP Student in an Organized Health Care Education/Training Program
DX: E86.0 Dehydration (principal); R19.7 Diarrhea, unspecified; R03.1 Nonspecific low blood-pressure reading
CPT/HCPCS: 36415; 80053; 81003; 85025; 87045; 87507; 87899; 96360; 96361; 99284

== ENCOUNTER 2021-05-28 09:47 | Day surgery (SDC) | payer MEDICARE, OTHER, SELFPAY ==
[2021-05-10 01:35] VITALS: BMI 34.9
[2021-05-28] VITALS (9 sets, daily range): BP systolic 104–145; BP diastolic 58–83; PULSE 51–62; RESP 12–22; TEMP 36.2–36.7; O2SAT 95–100; BMI 36.8
--- NOTE | 2021-05-28 | PATH_ITS ---
[facility] Accession Number: [id number] . 01 Material submitted: . esophagus - ESOPHAGUS . 01 Clinical history: . R/O VAUGHN'S ESOPHAGUS DX COLONOSCOPY . 01 Diagnosis: Esophagus, Biopsies: Squamocolumnar junctional mucosa with focal specialized intestinal metaplasia; please see comment. Negative for dysplasia or malignancy. . [facility] 06/03/2021 1659 Local . 01 Comment: The histologic findings in the esophageal biopsy would be consistent with Vaughn's esophagus in the appropriate endoscopic setting. . 01 Electronically signed: . Brant Kathleen MD, PhD, Pathologist NPI- [id number] . 01 Gross description: . NO SITE DESIGNATED: Received in formalin is 1 fragment(s) of bellamy, soft tissue measuring 0.2 x 0.2 x 0.1 cm submitted entirely in 1 cassette(s) /QBJ 05/29/2021 0843 Local . 01 Microscopic: . An AB/PAS stain is performed to evaluate for specialized intestinal metaplasia and highlights a small focus of goblet cells. A control stain shows appropriate reactivity. . 01 Pathologist provided ICD-10: K22.70 . 01 CPT . 649559, 891734 Performed at: 01 [facility] [address], [place], [place] [id number] MD Regan Arce MD Phone: [phone]
[2021-05-28 10:20] LABS: COVID19 -Nasal RAPID Negative (Negative)
--- NOTE | 2021-05-28 10:48 | PM.HP.1 ---
History of Present Illness History of Present Illness Date Patient Seen: 05/28/21 Time Patient Seen: 10:49 Chief complaint: DX COLONOSCOPY Narrative: I reviewed my note from February 19. No significant changes. 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 Family & Social History Family History Unknown Cancer Social History: household members none Tobacco & Substance use: Smoking Status Former smoker alcohol intake current alcohol intake frequency 0-2 drinks per day Substance Use Type does not use Meds Home Medications and Allergies Home Medications Medication Instructions Recorded Confirmed Type tamsulosin 0.4 mg capsule (Flomax) 0.8 mg PO QPM #0 cap 06/23/19 05/28/21 History testosterone cypionate 200 mg/mL 200 mg IM Q3W ml 06/23/19 04/25/21 History intramuscular oil aspirin 81 mg tablet,delayed 325 mg PO DAILY 10/11/19 05/28/21 History release (Adult Low Dose Aspirin) cholecalciferol (vitamin D3) 25 4,000 unit PO DAILY cap 10/11/19 05/28/21 History mcg (1,000 unit) capsule multivitamin (Daily Multi-Vitamin) 1 tab PO QAM 10/11/19 05/28/21 History omeprazole 20 mg capsule,delayed 20 mg PO QAM 10/11/19 05/28/21 History release vitamin B complex 1 tab PO DAILY 10/11/19 05/28/21 History gabapentin 600 mg tablet 600 mg PO TID PRN 01/03/21 05/28/21 History testosterone cypionate 200 mg/mL 200 mg IM Q2W 01/03/21 05/28/21 History intramuscular oil trazodone 100 mg tablet 100 mg PO BEDTIME PRN #30 tab 01/11/21 05/28/21 Rx L.acidophilus-L.bulgar-B.bifid-S.thermoph 1 tab PO TIDWM #120 tab 05/12/21 05/28/21 Rx 1 billion cell-250 mg tablet (Bacid) buspirone 10 mg tablet 10 mg PO BID #60 tab 05/12/21 05/28/21 Rx cholestyramine-aspartame 4 gram 4 g PO QID #12 ea 05/12/21 05/28/21 Rx oral powder for susp in a packet (Prevalite) famotidine 20 mg tablet (Pepcid AC) 40 mg PO BID #120 tab 05/12/21 05/28/21 Rx folic acid 1 mg tablet 1 mg PO DAILY #120 tab 05/12/21 05/28/21 Rx melatonin 10 mg capsule 10 mg PO BEDTIME PRN #60 cap 05/12/21 05/28/21 Rx metoprolol tartrate 25 mg tablet 25 mg PO BID #60 tab 05/12/21 05/28/21 Rx multivitamin with folic acid 400 1 tab PO DAILY #60 tab 05/12/21 05/28/21 Rx mcg tablet (Tab-A-Michael) thiamine mononitrate (vit B1) 100 100 mg PO DAILY #60 tab 05/12/21 05/28/21 Rx mg tablet loperamide 2 mg capsule 2 mg PO Q6H PRN #10 cap 05/21/21 05/28/21 Rx Allergies Allergy/AdvReac Type Severity Reaction Status Date / Time hydrochlorothiazide Allergy Severe Anaphylaxis Verified 04/25/21 09:30 [HYDROCHLOROTHIAZIDE] lisinopril [LISINOPRIL] Allergy Severe Anaphylaxis Verified 04/25/21 09:30 Review of Systems Review of Systems ROS: Yes All systems reviewed with the patient and are negative except as otherwise documented Exam Vital Signs (past 8 hours): - 05/28/21 10:16 Temperature 97.2 F L Pulse Rate 54 L Respiratory Rate 22 Blood Pressure 138/72 Pulse Oximetry 100 Oxygen Delivery Method Room Air Const General: cooperative and comfortable Orientation: alert HENLA Head: normocephalic Ears: external ears normal Nose: external nose normal Face and sinus: normal facial exam Mouth: oral mucosae normal Eyes General: appearance normal, both eyes and all related structures Neck Neck: normal visual inspection Chest Chest: normal inspection of the chest Resp Effort & Inspection: normal respiratory effort Cardio Rate: regular rate GI Inspection: normal to inspection Skin General: no rashes or lesions noted and No jaundice Neuro General: patient alert and moves all extremities Cognition: normal cognition Speech: speech normal Extrem General: edema Psych Appearance: grossly normal Objective Labs Labs: Laboratory Results - last 24 hr 05/28/21 09:56 SARS-CoV-2 (PCR) Negative Assessment & Plan Assessment & Plan narrative: This is a 65-year-old male who has had an episode of melena. He also has a personal history of colon polyps. EGD and colonoscopy are pursued today. Time Spent With Patient Critical Care time: I spent a total of [] minutes of critical care time on this patient's care today; this time is exclusive of procedural time.
--- NOTE | 2021-05-28 10:51 | PM.PREOP ---
Pre-operative Note COVID-19 COVID-19 status: Negative Result date/Date tested (Pos, Neg/Pending): 05/28/21 Interval Note History & Physical reviewed/Exam performed by Physician: Yes Changes to H&P: No ASA Class (for procedural sedation): III
[2021-05-28] MEDS: SODIUM CHLORIDE 0.9% 1,000 ML 84 ML IV (11:00)
--- NOTE | 2021-05-28 12:00 | PM.OP.EC ---
Operative Date/Time/Diagnoses Date of procedure: 05/28/21 Time of procedure: 12:00 Pre-op diagnosis: Melena a few months back personal history of colon polyps Post-op diagnosis: same Procedure & Clinicians Study performed: Upper endoscopy with biopsies and colonoscopy Same procedure as scheduled: Yes Indications: Remote history of melena. Personal history of colon polyps. Surgeon: Ronn Serrano Procedure Notes SCOAP/Timeout: done Procedure in detail: After the risks and benefits were explained, written and verbal informed consent was obtained. The patient was brought into the procedure room and placed into the left lateral decubitus position. Please see nurse associate consulting engineer note for sedation details. The scope was introduced into the mouth through the bite block and advanced under direct visualization to the 2nd portion of the duodenum. The scope was slowly withdrawn carefully examining the mucosa for any defects or lesions. Retroflexed views were accomplished in the stomach. The stomach was decompressed, the scope was then removed from the patient who tolerated the procedure well. Prior to introduction of the scope the patient did have a brief spell of laryngospasm and required oral airway and bag ventilation. He recovered quite quickly and we were then able to proceed with the above examination. The patient was then turned around digital rectal examination accomplished no significant pathology appreciated the scope was introduced into the rectum and advanced to the cecum as identified by the appendiceal orifice and ileocecal valve. The scope was slowly withdrawn to carefully examine the mucosa for any defects or lesions. Multiple direct views were made through the dentate line for exclusion of pathology the colon was decompressed scope removed the patient who tolerated procedure well Scope withdrawal time: 6 minutes Sedation minutes: 36 Complications: none Impression: 1. Duodenum: This was not seen. The patient has a prior gastric bypass anatomy. 2. Efferent limb: This was visually normal. 3. Afferent limb: This was visually normal as well. 4. Gastrojejunostomy anastomosis: There was a very subtle old almost completely healed superficial ulceration. This was entirely bland based and perhaps 1-2 mm in greatest dimension. There was no evidence of any stenosis or neoplastic FX at the GJ anastomosis. 5. Gastric pouch colon this was visually normal in appearance. 6. Esophagus: The squamocolumnar junction did appear to extend up into the tubular esophagus by couple of cm or so. Biopsy was taken from the most proximal aspect of the salmon-colored mucosa for evaluation of specialized intestinal metaplasia. No nodularity no ulcerations no erosive features no varices seen throughout the esophagus. 7. Colon: Patient had scattered diverticula throughout the left and right colon. There were a couple of very diminutive nonbleeding angiodysplastic foci in the right colon/cecum. No significant polyps mass lesions or inflammatory features identified throughout. Endoscopic diagnosis 1. 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 Colonic diverticulosis 4. Nonbleeding diminutive right colon angiodysplasia Post-procedure Plan for aftercare: 1. Await histopathology 2. Repeat colonoscopy 5 years 3. If Ortez's is identified surveillance EGD will be indicated 4. Continue complete alcohol abstinence. Disposition: PACU
--- NOTE | 2021-05-28 12:10 | SUR.PHASEI ---
Pt to PACU after EGD/Colonoscopy awake, alert, denies SOB or chest pain. Breathing unassisted on room air. Repositioned, HOB elevated.
--- NOTE | 2021-05-28 12:53 | SUR.PHASEII ---
Pt up dresssed, ready for discharged. Denies pain. ride unaware of discharge for today, was told tomorrow. Will be here at 1:30pm
== END 2021-05-28 15:43 | disposition home or self-care (01) ==
LOC: ENDO 09:49
PROVIDERS: PCP Student in an Organized Health Care Education/Training Program; Referring Provider Internal Medicine Gastroenterology; Visit Provider Internal Medicine Gastroenterology
PROC: 0DJ08ZZ Inspection of Upper Intestinal Tract, Via Natural or Artificial Opening Endoscopic (ICD-10-PCS; CPT 43235; principal; 2021-05-28 11:00)
PROC: 0DJD8ZZ Inspection of Lower Intestinal Tract, Via Natural or Artificial Opening Endoscopic (ICD-10-PCS; CPT 45378; 2021-05-28 11:00)
DX: K92.1 Melena (principal); Z98.84 Bariatric surgery status; Z86.010 Personal history of colon polyps; K57.30 Diverticulosis of large intestine without perforation or abscess without bleeding; K22.70 Barrett's esophagus without dysplasia
CPT/HCPCS: 43239; 45378; 87635; J2704

== ENCOUNTER 2021-07-09 10:05 | Inpatient (IN) | payer MEDICARE, OTHER, SELFPAY ==
[2021-05-10 01:35] VITALS: BMI 34.9
[2021-07-09] VITALS (25 sets, daily range): BP systolic 118–148; BP diastolic 60–86; PULSE 81–153; RESP 14–23; TEMP 36.1–36.6; O2SAT 95–99; BMI 34.9; BMI 29.8
[2021-07-09 11:13] LABS: Add Manual Diff / Slide Review NO; Basophils Absolute Auto 0 /uL (0-100); Basophils Percent Auto 1.3 % (0-2); Eosinophils Absolute Auto 0 /uL (0-450); Eosinophils Percent Auto 0.2 % (2-4); Hematocrit 39.7 % (41-53); Hemoglobin 13.2 g/dL (13.5-17.5); Lymphocytes Absolute Auto 900 /uL (1100-4500); Lymphocytes Percent Auto 37.7 % (25-40); Mean Corpuscular HGB Conc 33.3 % (30-36); Monocytes Absolute Auto 200 /uL (0-900); Monocytes Percent Auto 8.8 % (3-14); Neutrophils Absolute Auto 1200 /uL (1500-7000); Platelet Count 80 X10^3/uL (150-400); Red Blood Cell Count 4.27 X10^6/uL (4.5-5.9); White Blood Cell Count 2.3 X10^3/uL (4.5-11.0)
[2021-07-09 11:20] LABS: Alanine Aminotransferase 34 IU/L (<50); Albumin Globulin Ratio 1.1 (1.0-2.8); Alkaline Phosphatase 90 U/L (38-126); Aspartate Aminotransferase 82 IU/L (17-59); BUN Creatinine Ratio 26.2 (6-22); Bilirubin Total 1.4 mg/dL (0.2-1.3); Blood Urea Nitrogen 22 mg/dL (9-20); Calcium 9.5 mg/dL (8.4-10.2); Carbon Dioxide 23 mmol/L (22-32); Chloride 101 mmol/L (98-107); Estimated Glomerular Filt Rate > 60.0 mL/min (>60); Globulin 3.8 g/dL (1.7-4.1); Glucose 102 mg/dL (80-110); HEMOLYSIS < 15 (0-50); Lipase 68 U/L (23-300); Potassium 4.1 mmol/L (3.4-5.1); Sodium 138 mmol/L (137-145); Total Protein 7.8 g/dL (6.3-8.2)
[2021-07-09 11:30] LABS: Ethanol (ETOH) 110 mg/dL
[2021-07-09 12:13] LABS: Appearance Urine UA CLEAR; Bilirubin Urine UA 2+ (NEGATIVE); Color Urine UA OTHER; Glucose Urine UA TRACE g/dL (Negative); Ketones Urine UA 2+ (NEGATIVE); Leukocyte Esterase Urine UA TRACE (NEGATIVE); Nitrite Urine UA NEGATIVE (Negative); Occult Blood Urine UA TRACE-LYSED (Negative); Protein Urine UA 2+ (Negative); Specific Gravity Urine UA 1.025 (1.000-1.035); pH Urine UA 5.5 (4.5-8.0)
--- NOTE | 2021-07-09 12:23 | PC.NURSE ---
Mary Jo GRULLON in room speaking to pt
[2021-07-09 12:33] LABS: Bacteria Urine Occasional (0-1); Culture Indicated Urine Cult Not Indicated; Hyaline Casts Urine 1-5/LPF; Ictotest Urine Negative (Negative); Mucus Urine 2+ (Negative); RBC Urine 0-1/HPF (0-5/HPF); Squamous Epithelial Cell Urine 1-5 /HPF (0-5/HPF); Transitional Epi Cells Urine 0-1/HPF (0-5/HPF); WBC Urine 1-5/HPF (0-5/HPF)
[2021-07-09] MEDS: LORazepam 2 MG/ML INJ 1 MG IV (12:55)
[2021-07-09] MEDS: PHENobarbital 65 MG/ML VIAL 130 MG IV (12:56)
--- NOTE | 2021-07-09 13:12 | ED_ITS ---
HPI - Medical Clearance General Chief complaint: Medical Clearance Stated complaint: ETOH Time Seen by Provider: 07/09/21 12:42 Source: patient Mode of arrival: EMS History of Present Illness HPI Narrative: Patient is a 66-year-old male history of alcoholism paroxysmal atrial fibrillation presenting today is wanting detox. He previously was admitted over thinks giving he was diagnosed with atrial fibrillation at that time detox in the hospital and was released. He states that he stayed sober for a week few weeks and started drinking again. He now drinks about a 5th a day. He iis remorseful and wants detox. He has no pain chest pain palpitations shortness of breath. He does state that his legs are weak he is able to walk while intoxicated but not will sober. Related Information Home Medications Medication Instructions Recorded Confirmed tamsulosin 0.4 mg capsule (Flomax) 0.8 mg PO QPM #0 cap 06/23/19 07/09/21 aspirin 81 mg tablet,delayed 325 mg PO DAILY 10/11/19 07/09/21 release (Adult Low Dose Aspirin) cholecalciferol (vitamin D3) 25 4,000 unit PO DAILY cap 10/11/19 07/09/21 mcg (1,000 unit) capsule multivitamin (Daily Multi-Vitamin) 1 tab PO QAM 10/11/19 07/09/21 omeprazole 20 mg capsule,delayed 20 mg PO QAM 10/11/19 07/09/21 release vitamin B complex 1 tab PO DAILY 10/11/19 07/09/21 gabapentin 600 mg tablet 600 mg PO TID PRN 01/03/21 07/09/21 testosterone cypionate 200 mg/mL 200 mg IM Q4W 01/03/21 07/09/21 intramuscular oil melatonin 10 mg capsule 20 mg PO BEDTIME PRN 07/09/21 07/09/21 Previous Rx's Medication Instructions Recorded trazodone 100 mg tablet 100 mg PO BEDTIME PRN #30 tab 01/11/21 L.acidophilus-L.bulgar-B.bifid-S.thermoph 1 tab PO TIDWM #120 tab 05/12/21 1 billion cell-250 mg tablet (Bacid) buspirone 10 mg tablet 10 mg PO BID #60 tab 05/12/21 famotidine 20 mg tablet (Pepcid AC) 40 mg PO BID #120 tab 05/12/21 folic acid 1 mg tablet 1 mg PO DAILY #120 tab 05/12/21 metoprolol tartrate 25 mg tablet 25 mg PO BID #60 tab 05/12/21 multivitamin with folic acid 400 1 tab PO DAILY #60 tab 05/12/21 mcg tablet (Tab-A-Michael) thiamine mononitrate (vit B1) 100 100 mg PO DAILY #60 tab 05/12/21 mg tablet Allergies Allergy/AdvReac Type Severity Reaction Status Date / Time hydrochlorothiazide Allergy Severe Anaphylaxis Verified 07/09/21 16:26 [HYDROCHLOROTHIAZIDE] lisinopril [LISINOPRIL] Allergy Severe Anaphylaxis Verified 07/09/21 16:26 Review of Systems Review of Systems Narrative: GENERAL: Denies chills, fatigue, malaise, fever, sweats, travel HEENT: Denies sinus pain, ear pain, sore throat, difficulty swallowing, neck pain RESPIRATORY: Denies dyspnea, cough, wheezing, hemoptysis, sputum. CARDIOVASCULAR: Denies chest pain, palpitations, orthopnea, edema GASTROINTESTINAL: Denies nausea, vomiting, abdominal pain, diarrhea, constipation, melena. : Denies dysuria, frequency, incontinence, hematuria, urinary retention, flank pain. 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 Family History Unknown Cancer Social History household members: none Smoking Status: Former smoker alcohol intake: current substance use type: does not use Smoking Status: Former smoker alcohol intake frequency: 0-2 drinks per day Alcohol type: hard liquor Substance Use Type: does not use Exam Initial Vital Signs Initial Vital Signs: Vital Signs Temperature 97 F L 07/09/21 10:40 Pulse Rate 105 H 07/09/21 10:40 Respiratory Rate 16 07/09/21 10:40 Blood Pressure 128/71 07/09/21 10:40 Pulse Oximetry 95 07/09/21 10:40 GENERAL: Chronically ill 66-year-old male HEENT: Head atraumatic,EOMI, pupils reactive, face symmetric, moist mucous m embranes CARDIOVASCULAR: Regular rate and rhythm without murmurs, rubs or gallops. RESPIRATORY: Breath sounds equal bilaterally, no wheezes rales or rhonchi. ABDOMEN: Soft, nontender. Normoactive bowel sounds all 4 quadrants. No guarding or rebound. EXTREMITIES: Normal range of motion, no clubbing or edema. Neurovascularly intact NEUROLOGICAL: Alert and oriented x4 SKIN: Warm, dry, no laceration, no petechiae, no rashes or lesions. MDM - Medical Clearance Lab Data Result diagrams: 07/09/21 10:58 07/09/21 10:58 Labs: Lab Results 07/09/21 07/09/21 07/09/21 Range/Units 10:58 10:58 10:58 WBC 2.3 L (4.5-11.0) X10^3/uL RBC 4.27 L (4.5-5.9) X10^6/uL Hgb 13.2 L (13.5-17.5) g/dL Hct 39.7 L (41-53) % MCV 93.0 (80-100) fL MCH 31.0 (26-34) PG MCHC 33.3 (30-36) % RDW 20.0 H (11.6-14.8) % Plt Count 80 L (150-400) X10^3/uL Neut % (Auto) 52.0 (50-75) % Lymph % (Auto) 37.7 (25-40) % [place] % (Auto) 8.8 (3-14) % Eos % (Auto) 0.2 L (2-4) % Baso % (Auto) 1.3 (0-2) % Neut # (Auto) 1200 L (1102-5047) /uL Lymph # (Auto) 900 L (3506-5615) /uL [place] # (Auto) 200 (0-900) /uL Eos # (Auto) 0 (0-450) /uL Baso # (Auto) 0 (0-100) /uL Sodium 138 (137-145) mmol/L Potassium 4.1 (3.4-5.1) mmol/L Chloride 101 (98-107) mmol/L Carbon Dioxide 23 (22-32) mmol/L BUN 22 H (9-20) mg/dL Creatinine 0.84 (0.66-1.25) mg/dL Estimated GFR > 60.0 (>60) mL/min BUN/Creatinine Ratio 26.2 H (6-22) Glucose 102 (80-110) mg/dL Calcium 9.5 (8.4-10.2) mg/dL Magnesium (1.6-2.3) mg/dL Total Bilirubin 1.4 H (0.2-1.3) mg/dL AST 82 H (17-59) IU/L ALT 34 (<50) IU/L Alkaline Phosphatase 90 (38-126) U/L Total Creatine Kinase (55-170) U/L CK-MB (CK-2) CK-MB (CK-2) Rel Index Troponin I (0.01-0.034) ng/mL NT-Pro-B Natriuret Pep (<125) pg/mL Total Protein 7.8 (6.3-8.2) g/dL Albumin 4.0 (3.5-5.0) g/dL Globulin 3.8 (1.7-4.1) g/dL Albumin/Globulin Ratio 1.1 (1.0-2.8) Lipase 68 (23-300) U/L Urine Color Urine Appearance Urine pH (4.5-8.0) Ur Specific [place] (1.000-1.035) Urine Protein (Negative) Urine Glucose (UA) (Negative) g/dL Urine Ketones (NEGATIVE) Urine Occult Blood (Negative) Urine Nitrate (Negative) Urine Bilirubin (NEGATIVE) Ur Bilirubin Confirm (Negative) Urine Urobilinogen (0.2) E.U./dL Ur Leukocyte Esterase (NEGATIVE) Urine RBC (0-5/HPF) Urine WBC (0-5/HPF) Ur Squamous Epith Cells (0-5/HPF) Ur Transition Epith Cell (0-5/HPF) Urine Bacteria (None) Hyaline Casts (None) Urine Mucus (Negative) Ur Culture Indicated? Ethyl Alcohol 110 H ( - 10) mg/dL 07/09/21 07/09/21 07/09/21 Range/Units 10:58 12:10 12:45 WBC (4.5-11.0) X10^3/uL RBC (4.5-5.9) X10^6/uL Hgb (13.5-17.5) g/dL Hct (41-53) % MCV (80-100) fL MCH (26-34) PG MCHC (30-36) % RDW (11.6-14.8) % Plt Count (150-400) X10^3/uL Neut % (Auto) (50-75) % Lymph % (Auto) (25-40) % [place] % (Auto) (3-14) % Eos % (Auto) (2-4) % Baso % (Auto) (0-2) % Neut # (Auto) (7284-2037) /uL Lymph # (Auto) (7917-1482) /uL [place] # (Auto) (0-900) /uL Eos # (Auto) (0-450) /uL Baso # (Auto) (0-100) /uL Sodium (137-145) mmol/L Potassium (3.4-5.1) mmol/L Chloride (98-107) mmol/L Carbon Dioxide (22-32) mmol/L BUN (9-20) mg/dL Creatinine (0.66-1.25) mg/dL Estimated GFR (>60) mL/min BUN/Creatinine Ratio (6-22) Glucose (80-110) mg/dL Calcium (8.4-10.2) mg/dL Magnesium 1.2 L (1.6-2.3) mg/dL Total Bilirubin (0.2-1.3) mg/dL AST (17-59) IU/L ALT (<50) IU/L Alkaline Phosphatase (38-126) U/L Total Creatine Kinase 61 (55-170) U/L CK-MB (CK-2) TNP CK-MB (CK-2) Rel Index TNP Troponin I 0.019 (0.01-0.034) ng/mL NT-Pro-B Natriuret Pep 114 (<125) pg/mL Total Protein (6.3-8.2) g/dL Albumin (3.5-5.0) g/dL Globulin (1.7-4.1) g/dL Albumin/Globulin Ratio (1.0-2.8) Lipase (23-300) U/L Urine Color Other Urine Appearance Clear Urine pH 5.5 (4.5-8.0) Ur Specific [place] 1.025 (1.000-1.035) Urine Protein 2+ H (Negative) Urine Glucose (UA) Trace H (Negative) g/dL Urine Ketones 2+ H (NEGATIVE) Urine Occult Blood Trace-lysed (Negative) Urine Nitrate Negative (Negative) Urine Bilirubin 2+ H (NEGATIVE) Ur Bilirubin Confirm Negative (Negative) Urine Urobilinogen 1.0 (0.2) E.U./dL Ur Leukocyte Esterase Trace H (NEGATIVE) Urine RBC 0-1/hpf (0-5/HPF) Urine WBC 1-5/hpf (0-5/HPF) Ur Squamous Epith Cells 1-5 /hpf (0-5/HPF) Ur Transition Epith Cell 0-1/hpf (0-5/HPF) Urine Bacteria Occasional (0-1) (None) Hyaline Casts 1-5/lpf (None) Urine Mucus 2+ H (Negative) Ur Culture Indicated? Cult not indicated Ethyl Alcohol ( - 10) mg/dL Imaging Data CT scan - chest: Radiologist's Impression: PROCEDURE:? CT ANGIO CHEST PE PROTOCOL ? INDICATIONS:? hypoxia ? TECHNIQUE:? After the administration of intravenous contrast, 2 mm thick sections acquired from the pulmonary apices to the posterior costophrenic angles.? 3-dimensional maximum in tensity projection (MIP) coronal and sagittal reformats were then acquired through the thorax.? For radiation dose reduction, the following was used:? automated exposure control, adjustment of mA and/or kV according to patient size.? ? COMPARISON:? [facility], CR, XR CHEST 2 VIEWS, 01/17/2021, 14:06.? [facility], CR, XR LUMBAR SPINE 2-3V, 05/21/2020, 11:13.? [facility], CT, CT ABDOMEN HEPATIC/ADRENAL PROTOCOL, 10/30/2020, 14:38.? [facility], CT, CT ABLATION RENAL, 04/26/2021, 8:59. ? FINDINGS:? Image quality:? Excellent.? ? Pulmonary arteries:? Pulmonary arteries are normal in size, and demonstrate no intraluminal filling defects to suggest central pulmonary embolism.? ? Lungs and pleura:? Bibasilar dependent atelectasis.? No vein infiltrate or consolidation. ?Small lung nodules are noted bilaterally. ? Nodule 1:? 3 mm; right upper lobe; series 5 image 148; solid. Nodule 2:? 2 mm; right lower lobe; series 5, image 180; solid. Nodules 3:? 4 mm; Left upper lobe; series 5, image 64; subsolid. ? ?No pleural effusions or pneumothorax.? Central and peripheral airways are patent.? ? Mediastinum:? Heart size is normal.? Mild coronary artery calcification.? No pericardial effusion.? No mediastinal or hilar adenopathy.? Thoracic aorta is normal in patricia iber and enhancement.? Esophagus is normal in caliber.? Jalwd-eb-zblupvyb hiatal hernia.? ? Bones and chest wall:? No suspicious bony lesions.? There is osteopenia.? Mild compression deformity of T7 and T8.? Prominent anterior bridging osteophytes.? Ribs and thoracic spine appear intact throughout.? Thyroid gland is normal.? No axillary or supraclavicular adenopathy.? ? Abdomen:? There is moderate to severe hepatic steatosis.? There is pneumobilia.? A 4.6 cm diameter simple appearing cyst is partially visualized in the superior pole of the left kidney.? Postsurgical changes at the gastroesophageal junction.? ? IMPRESSION:? ? 1. No evidence for pulmonary embolism. 2. No acute pulmonary process. 3. Mild coronary artery atherosclerosis. 4. Small lung nodules are present.? Please see in close follow-up recommendation. 5. Hepatic steatosis. 6. Pneumobilia. 7. Gisze-kh-kkymepwn sized hiatal hernia. 8. Osteopenia and mild chronic compression fractureds of T7 and T8. 9. Prominent bridging anterior osteophytes.? Recommend clinical correlation for ankylosing spondylitis.? ? ? Fleischner Society criteria for SOLID lung nodule followup.? Nodule size (mm)Low-risk patientHigh-risk patient?4No follow-up neededFollow-up at 12 mo; if no change, no further follow-up>[id number] CT at 12 mo; if no change, no further follow-up needed.Initial follow-up CT at 6-12 mo, then 18-24 mo if no change.? >6-8Initial follow-up CT at 6-12 mo, then 18-24 mo if no change. Initial follow- up CT at 3-6 mo, then 9-12 mo and 24 mo if no change.? >8Follow-up CT at 3, 9, 24 mo.? Or PET and/or biopsy.Same as for low-risk pts.? Fleischner Society criteria for SUB-SOLID lung nodule followup.? Solitary pure ground-glass nodules5 mm or lessNo followup needed.? >5 mm3 mo follow-up CT to confirm persistence.? Then annual CT for 3 years.? Part-solid nodules3 mo follow-up CT to confirm persistence.? If persistent with solid component <5 mm, annual CT for at least 3 years.? If solid component is 5 mm or more, biopsy or surgical resection.? Consider PET-CT for lesions > 10 mm.? Multiple sub-solid nodulesPure ground glass nodules [address] at 2 and 4 years.? Pure ground glass nodules >5 mm without d ominant lesion.? [address] to confirm persistence, then annual followup CT for at least 3 years.? Dominant nodule(s) with part-solid or solid component.? [address] to confirm persistence.? If persistent, consider biopsy or surgical resection, festus if lesions have >5 mm solid component.? Dictated by: Yury Barros M.D. on 07/09/2021 at 14:33 ?? ECG Data Interpretation: EKG 1. Sinus rhythm rate [address] changes p.r. interval 202 QRS 84 QTC 457 EKG 2. Sinus rhythm rate 104 TN interval 202 QRS 86 no changes from prior MDM Narrative Medical decision making narrative: Patient does have paroxysmal atrial fibrillation on the monitor however he had about a 30 beat run of V tach. He was relatively asymptomatic at the time. He has actually had a couple of runs of V-tach. And continues to intermittently be in atrial fibrillation with heart rates as high as 160. Initially he was given 1 dose of diltiazem 10 mg to help with atrial fibrillation cardiology was consulted and states the V-tach is likely from alcohol withdrawal recommend beta daisha. He is given 1 dose metoprolol. Was given Ativan and phenobarbital for alcohol withdrawal although he was not actually having tremors. It may or may not have caused his oxygen to drop. However due to his cardiac arrhythmia as I needed to rule out pulmonary embolism. CT is fortunately negative. At this time patient will need to be admitted on mixer and scaler for alcohol withdrawal. He previously had an echocardiogram and April cardiology also recommended stress test Dr. Hoff, ED to see and evaluate patient Critical Care Time Critical Care Time Critical Care Time: Yes Total Critical Care Time: 30 Attestation: The high probability of a clinically significant, sudden or life threatening deterioration of the [cardiovascular] system(s) required my full and direct attention, intervention and personal management. The aggregate critical care time was [45] minutes. This time is in addition to time spent performing reported procedures but includes the following: [x] Data Review and interpretation [x] Patient assessment and monitoring of vital signs [x] Documentation [x] Medication orders and management Discharge Plan Departure Patient Disposition: Admitted As Inpatient Clinical Impression: Alcohol withdrawal seizure with complication, Ventricular tachycardia, Atrial fibrillation with rapid ventricular response Admit Date/Time: 07/09/21 14:03 Admit Provider: Yousif Hoff
--- NOTE | 2021-07-09 13:13 | DI.CT.S_ITS ---
PROCEDURE: CT ANGIO CHEST PE PROTOCOL INDICATIONS: hypoxia TECHNIQUE: After the administration of intravenous contrast, 2 mm thick sections acquired from the pulmonary apices to the posterior costophrenic angles. 3-dimensional maximum intensity projection (MIP) coronal and sagittal reformats were then acquired through the thorax. For radiation dose reduction, the following was used: automated exposure control, adjustment of mA and/or kV according to patient size. COMPARISON: [facility], CR, XR CHEST 2 VIEWS, 01/17/2021, 14:06. [facility], CR, XR LUMBAR SPINE 2-3V, 05/21/2020, 11:13. [facility], CT, CT ABDOMEN HEPATIC/ADRENAL PROTOCOL, 10/30/2020, 14:38. [facility], CT, CT ABLATION RENAL, 04/26/2021, 8:59. FINDINGS: Image quality: Excellent. Pulmonary arteries: Pulmonary arteries are normal in size, and demonstrate no intraluminal filling defects to suggest central pulmonary embolism. Lungs and pleura: Bibasilar dependent atelectasis. No vein infiltrate or consolidation. Small lung nodules are noted bilaterally. Nodule 1: 3 mm; right upper lobe; series 5 image 148; solid. Nodule 2: 2 mm; right lower lobe; series 5, image 180; solid. Nodules 3: 4 mm; Left upper lobe; series 5, image 64; subsolid. No pleural effusions or pneumothorax. Central and peripheral airways are patent. Mediastinum: Heart size is normal. Mild coronary artery calcification. No pericardial effusion. No mediastinal or hilar adenopathy. Thoracic aorta is normal in caliber and enhancement. Esophagus is normal in caliber. Oshzx-av-kljukjic hiatal hernia. Bones and chest wall: No suspicious bony lesions. There is osteopenia. Mild compression deformity of T7 and T8. Prominent anterior bridging osteophytes. Ribs and thoracic spine appear intact throughout. Thyroid gland is normal. No axillary or supraclavicular adenopathy. Abdomen: There is moderate to severe hepatic steatosis. There is pneumobilia. A 4.6 cm diameter simple appearing cyst is partially visualized in the superior pole of the left kidney. Postsurgical changes at the gastroesophageal junction. IMPRESSION: 1. No evidence for pulmonary embolism. 2. No acute pulmonary process. 3. Mild coronary artery atherosclerosis. 4. Small lung nodules are present. Please see in close follow-up recommendation. 5. Hepatic steatosis. 6. Pneumobilia. 7. Ixppe-lr-tjybktyf sized hiatal hernia. 8. Osteopenia and mild chronic compression fractureds of T7 and T8. 9. Prominent bridging anterior osteophytes. Recommend clinical correlation for ankylosing spondylitis. Fleischner Society criteria for SOLID lung nodule followup. Nodule size (mm)Low-risk patientHigh-risk patient?4No follow-up neededFollow-up at 12 mo; if no change, no further follow-up>3-1Akgknc-mz CT at 12 mo; if no change, no further follow-up needed.Initial follow-up CT at 6-12 mo, then 18-24 mo if no change. >6-8Initial follow-up CT at 6-12 mo, then 18-24 mo if no change. Initial follow-up CT at 3-6 mo, then 9-12 mo and 24 mo if no change. >8Follow-up CT at 3, 9, 24 mo. Or PET and/or biopsy.Same as for low-risk pts. Fleischner Society criteria for SUB-SOLID lung nodule followup. Solitary pure ground-glass nodules5 mm or lessNo followup needed. >5 mm3 mo follow-up CT to confirm persistence. Then annual CT for 3 years. Part-solid nodules3 mo follow-up CT to confirm persistence. If persistent with solid component <5 mm, annual CT for at least 3 years. If solid component is 5 mm or more, biopsy or surgical resection. Consider PET-CT for lesions > 10 mm. Multiple sub-solid nodulesPure ground glass nodules [address] at 2 and 4 years. Pure ground glass nodules >5 mm without dominant lesion. [address] to confirm persistence, then annual followup CT for at least 3 years. Dominant nodule(s) with part-solid or solid component. [address] to confirm persistence. If persistent, consider biopsy or surgical resection, festus if lesions have >5 mm solid component. Dictated by: Yury Barros M.D. on 07/09/2021 at 14:33 Approved by: Yury Barros M.D. on 07/09/2021 at 14:46
[2021-07-09 13:19] LABS: Creatine Kinase 61 U/L (55-170)
[2021-07-09 13:31] LABS: NT-proBNP (BNP-Adult 18+) 114 pg/mL (<125); Troponin I 0.019 ng/mL (0.01-0.034)
[2021-07-09] MEDS: dilTIAZem 5 MG/ML SDV 10 MG IV (13:55)
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
[2021-07-09 14:07] LABS: Magnesium 1.2 mg/dL (1.6-2.3)
--- NOTE | 2021-07-09 14:08 | CM.DANOTE ---
DCP Assessment Patient is 66 y/o male who presents to the ED via EMS seeking ETOH detox. Patient has hx of Afib, Alcohol use disorder, and renal cancer. This CARBIDE TOOL DIE MAKER has assisted patient in getting into detox on several occasions. In the ED patient had multiple sessions of V-tach which led to patient's acceptance by hospitalist to acute care. Patient has Medicare, [employer] insurances and patient states he has VA benefits as well. Patient lives alone and has friends and neighbors as local supports. Patient has a daughter and son who reside in [place]. Patient has previously disclosed an estranged relationship with them. Further report can be seen in ED CARBIDE TOOL DIE MAKER assessment in social work note. Plan: DCP to f/u with plan of care. YADI Rodriguez Discharge Planning/Care Management CM Discharge Assessment Start: 07/09/21 14:05 Freq: Status: Active Protocol: Document 07/09/21 14:05 LN (Rec: 07/09/21 14:08 LN [id number]) Discharge Planning Assessment Assigned Used Equipment Sales Representative YADI Camargo Advance Directives? No Advance Directives on File No History Provided By Patient,Medical Record Has Patient been admitted in last 30 No days? Prior Living Arrangements House Household Members none Type of transporation used prior to Drives own vehicle admit Independent with ADL's Yes: Patient states difficultly walking when sober . Is patient alert and oriented? Yes DME Already Rented / Owned FWW / Walker,Cane Comment Patient states he owns cane and walker but does not use it as much as he should. Patient/Family Preference Drug/Alcohol Rehab Comment Patient is seeking Alcohol rehabilitation. Review Status In Process Please Provide Date Initial DC 07/09/21 Assessment Was Performed Next Review Type Continued Stay Review M
[2021-07-09] MEDS: MAGNESIUM SULFATE 2 GM/50 ML PIGGYBACK IV ×2 (14:23→16:56)
[2021-07-09] MEDS: METOPROLOL ER 25 MG TABLET PO ×2 (15:07→20:43)
[2021-07-09 15:11] LABS: COVID19 -Nasal RAPID Negative (Negative)
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
--- NOTE | 2021-07-09 19:23 | P.HP_ITS ---
History of Present Illness History of Present Illness Date Patient Seen: 07/09/21 Time Patient Seen: 08:00 Chief complaint: ETOH Narrative: Mr. Webster is a 65M with H Etoh abuse, dependence, cirrhosis, atrial fibrillation who presents for alcohol detox. His last drink was this morning. He has presented for detox many times. He continues to drink significantly daily, over a fifth of hard liquor. When asked what is different this time about quitting, compared to the many other times, he states today he decided to call his sponsor instead of drink, but offers no further insight. He states he does not take his metoprolol any time I'm drinking. He admits drinking daily, and does not know when he last took metoprolol. He has had DTs, and he says no withdrawal seizures and never intubated. In the ED, workup was done, he was noted to be intermittently tachycardic with runs of afib that appeared to be in the 160s, sinus tachycardia, and approximately 35 beats of vtach. Vitals notable for tachycardia. Labs notable for WBC 2.3, hgb 13.2, plts 80, creatinine 0.84. EtOH 110, Mag 1.2. UA negative for infection. He was ordered for phenobarb and felt improved. He was ordered for magnesium. He was admitted for further treatment. 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 Family & Social History Family History Unknown Cancer Social History: household members none Prior Living Arrangements House Safety & Behavioral: Feels Safe in Current Yes Environment Been Physically Hurt or No Threatened By a Person Suicidal Ideation Description None Suicide Plan Description No Plan Tobacco & Substance use: Smoking Status Former smoker alcohol intake current alcohol intake frequency 3 or more drinks per day Substance Use Type does not use Meds Home Medications and Allergies Home Medications Medication Instructions Recorded Confirmed Type tamsulosin 0.4 mg capsule (Flomax) 0.8 mg PO QPM #0 cap 06/23/19 07/09/21 History aspirin 81 mg tablet,delayed 325 mg PO DAILY 10/11/19 07/09/21 History release (Adult Low Dose Aspirin) cholecalciferol (vitamin D3) 25 4,000 unit PO DAILY cap 10/11/19 07/09/21 History mcg (1,000 unit) capsule multivitamin (Daily Multi-Vitamin) 1 tab PO QAM 10/11/19 07/09/21 History omeprazole 20 mg capsule,delayed 20 mg PO QAM 10/11/19 07/09/21 History release vitamin B complex 1 tab PO DAILY 10/11/19 07/09/21 History gabapentin 600 mg tablet 600 mg PO TID PRN 01/03/21 07/09/21 History testosterone cypionate 200 mg/mL 200 mg IM Q4W 01/03/21 07/09/21 History intramuscular oil trazodone 100 mg tablet 100 mg PO BEDTIME PRN #30 tab 01/11/21 07/09/21 Rx L.acidophilus-L.bulgar-B.bifid-S.thermoph 1 tab PO TIDWM #120 tab 05/12/21 07/09/21 Rx 1 billion cell-250 mg tablet (Bacid) buspirone 10 mg tablet 10 mg PO BID #60 tab 05/12/21 07/09/21 Rx famotidine 20 mg tablet (Pepcid AC) 40 mg PO BID #120 tab 05/12/21 07/09/21 Rx folic acid 1 mg tablet 1 mg PO DAILY #120 tab 05/12/21 07/09/21 Rx metoprolol tartrate 25 mg tablet 25 mg PO BID #60 tab 05/12/21 07/09/21 Rx multivitamin with folic acid 400 1 tab PO DAILY #60 tab 05/12/21 07/09/21 Rx mcg tablet (Tab-A-Michael) thiamine mononitrate (vit B1) 100 100 mg PO DAILY #60 tab 05/12/21 07/09/21 Rx mg tablet melatonin 10 mg capsule 20 mg PO BEDTIME PRN 07/09/21 07/09/21 History Allergies Allergy/AdvReac Type Severity Reaction Status Date / Time hydrochlorothiazide Allergy Severe Anaphylaxis Verified 07/09/21 16:26 [HYDROCHLOROTHIAZIDE] lisinopril [LISINOPRIL] Allergy Severe Anaphylaxis Verified 07/09/21 16:26 Review of Systems Review of Systems Narrative: 14 systems reviewed and negative aside from HPI Exam Vital Signs (past 8 hours): - 07/09/21 11:59 07/09/21 12:00 07/09/21 12:01 Temperature Pulse Rate 109 H 110 H 109 H Respiratory Rate 23 Blood Pressure 142/67 H Pulse Oximetry 96 97 99 07/09/21 12:30 07/09/21 12:35 07/09/21 13:00 Temperature Pulse Rate 100 H 97 H 102 H Respiratory Rate 16 22 22 Blood Pressure 143/76 H 137/70 136/62 Pulse Oximetry 96 96 96 07/09/21 13:30 07/09/21 13:37 07/09/21 13:42 Temperature Pulse Rate 153 H 100 H 106 H Respiratory Rate 19 18 Blood Pressure 138/74 131/60 134/63 Pulse Oximetry 95 96 96 07/09/21 13:43 07/09/21 13:44 07/09/21 13:45 Temperature Pulse Rate 106 H 101 H 99 H Respiratory Rate 19 19 19 Blood Pressure 134/63 118/69 127/69 Pulse Oximetry 96 96 97 07/09/21 13:49 07/09/21 13:55 07/09/21 14:00 Temperature Pulse Rate 101 H 139 H 95 H Respiratory Rate 18 23 Blood Pressure 130/67 127/69 148/86 H Pulse Oximetry 97 95 07/09/21 14:30 07/09/21 15:00 07/09/21 15:07 Temperature Pulse Rate 84 95 H 91 H Respiratory Rate 14 15 Blood Pressure 120/69 145/74 H 145/74 H Pulse Oximetry 96 98 07/09/21 15:30 07/09/21 16:27 Temperature 97.8 F Pulse Rate 81 113 H Respiratory Rate 15 23 Blood Pressure 119/71 139/69 Pulse Oximetry 98 98 Oxygen Delivery Method Room Air Oxygen Flow Rate 2 Narrative Exam Narrative: GEN: no acute distress, chronically ill appearing HEENT: moist mucous membranes, PERRL NECK: trachea midline, no JVD PULM: clear bilaterally, no wheezes, rhonchi, rales ABD: soft, nontender, nondistended, no organomegaly EXT; warm and well perfused with no edema NEURO: awake, alert, oriented, no focal deficits PSYCH: pleasant Objective Labs Result Diagrams: 07/09/21 10:58 07/09/21 10:58 Labs: Laboratory Results - last 24 hr 07/09/21 07/09/21 07/09/21 10:58 10:58 10:58 WBC 2.3 L RBC 4.27 L Hgb 13.2 L Hct 39.7 L MCV 93.0 MCH 31.0 MCHC 33.3 RDW 20.0 H Plt Count 80 L Neut % (Auto) 52.0 Lymph % (Auto) 37.7 [place] % (Auto) 8.8 Eos % (Auto) 0.2 L Baso % (Auto) 1.3 Neut # (Auto) 1200 L Lymph # (Auto) 900 L [place] # (Auto) 200 Eos # (Auto) 0 Baso # (Auto) 0 Sodium 138 Potassium 4.1 Chloride 101 Carbon Dioxide 23 BUN 22 H Creatinine 0.84 Estimated GFR > 60.0 BUN/Creatinine Ratio 26.2 H Glucose 102 Calcium 9.5 Magnesium Total Bilirubin 1.4 H AST 82 H ALT 34 Alkaline Phosphatase 90 Total Creatine Kinase CK-MB (CK-2) CK-MB (CK-2) Rel Index Troponin I NT-Pro-B Natriuret Pep Total Protein 7.8 Albumin 4.0 Globulin 3.8 Albumin/Globulin Ratio 1.1 Lipase 68 Urine Color Urine Appearance Urine pH Ur Specific Stuart Urine Protein Urine Glucose (UA) Urine Ketones Urine Occult Blood Urine Nitrate Urine Bilirubin Ur Bilirubin Confirm Urine Urobilinogen Ur Leukocyte Esterase Urine RBC Urine WBC Ur Squamous Epith Cells Ur Transition Epith Cell Urine Bacteria Hyaline Casts Urine Mucus Ur Culture Indicated? Ethyl Alcohol 110 H SARS-CoV-2 (PCR) 07/09/21 07/09/21 07/09/21 10:58 12:10 12:45 WBC RBC Hgb Hct MCV MCH MCHC RDW Plt Count Neut % (Auto) Lymph % (Auto) [place] % (Auto) Eos % (Auto) Baso % (Auto) Neut # (Auto) Lymph # (Auto) [place] # (Auto) Eos # (Auto) Baso # (Auto) Sodium Potassium Chloride Carbon Dioxide BUN Creatinine Estimated GFR BUN/Creatinine Ratio Glucose Calcium Magnesium 1.2 L Total Bilirubin AST ALT Alkaline Phosphatase Total Creatine Kinase 61 CK-MB (CK-2) TNP CK-MB (CK-2) Rel Index TNP Troponin I 0.019 NT-Pro-B Natriuret Pep 114 Total Protein Albumin Globulin Albumin/Globulin Ratio Lipase Urine Color Other Urine Appearance Clear Urine pH 5.5 Ur Specific Stuart 1.025 Urine Protein 2+ H Urine Glucose (UA) Trace H Urine Ketones 2+ H Urine Occult Blood Trace-lysed Urine Nitrate Negative Urine Bilirubin 2+ H Ur Bilirubin Confirm Negative Urine Urobilinogen 1.0 Ur Leukocyte Esterase Trace H Urine RBC 0-1/hpf Urine WBC 1-5/hpf Ur Squamous Epith Cells 1-5 /hpf Ur Transition Epith Cell 0-1/hpf Urine Bacteria Occasional (0-1) Hyaline Casts 1-5/lpf Urine Mucus 2+ H Ur Culture Indicated? Cult not indicated Ethyl Alcohol SARS-CoV-2 (PCR) 07/09/21 14:16 WBC RBC Hgb Hct MCV MCH MCHC RDW Plt Count Neut % (Auto) Lymph % (Auto) [place] % (Auto) Eos % (Auto) Baso % (Auto) Neut # (Auto) Lymph # (Auto) [place] # (Auto) Eos # (Auto) Baso # (Auto) Sodium Potassium Chloride Carbon Dioxide BUN Creatinine Estimated GFR BUN/Creatinine Ratio Glucose Calcium Magnesium Total Bilirubin AST ALT Alkaline Phosphatase Total Creatine Kinase CK-MB (CK-2) CK-MB (CK-2) Rel Index Troponin I NT-Pro-B Natriuret Pep Total Protein Albumin Globulin Albumin/Globulin Ratio Lipase Urine Color Urine Appearance Urine pH Ur Specific Stuart Urine Protein Urine Glucose (UA) Urine Ketones Urine Occult Blood Urine Nitrate Urine Bilirubin Ur Bilirubin Confirm Urine Urobilinogen Ur Leukocyte Esterase Urine RBC Urine WBC Ur Squamous Epith Cells Ur Transition Epith Cell Urine Bacteria Hyaline Casts Urine Mucus Ur Culture Indicated? Ethyl Alcohol SARS-CoV-2 (PCR) Negative Assessment & Plan Assessment & Plan narrative: Mr. Webster is a 65M with PMH of EtOH abuse presenting with acute alcohol withdrawal requesting detox, found to have atrial fibrillation with RVR. 1. Alcohol abuse with dependence and withdrawal, acute -drinks significantly dailyi -been to rehab for detox many times -last drink on day of admission -ordered for phenobarb in ED -ordered for CIWA and ativan -ordered for MVI, thiamine, folate -social work consult 2. Atrial fibrillation with RVR -has known diagnosis of afib -does not take medication at home -reorder metoprolol -he has frequent falls in setting ot EtOH for now will avoid anticoagulation 3. Ventricular tachycardia -likely secondary to being off metoprolol and low magnesium -restart metoprolol -replete magnesium 4. Alcoholic cirrhosis, presumed -noted in patient's chart -encourage abstinence from alcohol 5. Thrombocytopenia -continue to monitor -no need for transfusion CODE: Full Proxy: Aparna Lundberg, daughter I have utilized all available immediate resources to obtain, update, or review of the patient's current medications Time Spent With Patient Critical Care time: I spent a total of [] minutes of critical care time on this patient's care today; this time is exclusive of procedural time. Quality MIPS - Admit I confirm the patient?s Advance Care Plan is present, Code status is documented, Surrogate decision maker is in patient?s record [If Yes, STOP here]: Yes
--- NOTE | 2021-07-09 20:11 | PC.NURSE ---
Addendum entered by Criss Conde R.N. 07/09/21 20:15: Patient has dressing to left scapula which is CDI. BP elevated at 145/80 but no longer tachycardic. Has neuropathy in bilateral feet. Original Note: Patient is alert and oriented. Tremoring noted in all extremities. CIWA is currently 4; discussed CIWA protocol, symptoms and use of Ativan and patient verbalized understanding. Breath sounds CTA with RA sat of 97%. HRR w/last telemetry reading recorded at 1653 of SR. Denies nausea. BT present and abdomen is soft; passing flatus. Able to urinate using urinal; denies dysuria, frequency or urgency. Is able to move himself in bed. Gait not assessed at this time but patient reports feeling weak. Denies pain. Seizure pads on bed. Fall risk score is moderate and bed alarm is activated.
[2021-07-09] MEDS: BUSPIRONE 5 MG TABLET 10 MG PO (20:43)
[2021-07-09] MEDS: SODIUM CHLORIDE 0.9% FLUSH 10 ML IV (20:44)
[2021-07-10] VITALS (12 sets, daily range): BP systolic 115–138; BP diastolic 58–84; PULSE 60–75; RESP 14–18; TEMP 36.2–36.7; O2SAT 95–99
[2021-07-10] MEDS: LORazepam 1 MG TABLET PO ×2 (01:23→14:39)
[2021-07-10 06:38] LABS: Add Manual Diff / Slide Review NO; Basophils Absolute Auto 0 /uL (0-100); Eosinophils Absolute Auto 0 /uL (0-450); Eosinophils Percent Auto 1.3 % (2-4); Hematocrit 36.5 % (41-53); Hemoglobin 12.3 g/dL (13.5-17.5); Lymphocytes Absolute Auto 900 /uL (1100-4500); Lymphocytes Percent Auto 35.8 % (25-40); Mean Corpuscular HGB Conc 33.7 % (30-36); Mean Corpuscular Hemoglobin 31.4 PG (26-34); Mean Corpuscular Volume 93.3 fL (80-100); Monocytes Absolute Auto 300 /uL (0-900); Monocytes Percent Auto 10.8 % (3-14); Neutrophils Absolute Auto 1300 /uL (1500-7000); Neutrophils Percent Auto 51.1 % (50-75); Platelet Count 63 X10^3/uL (150-400); Red Blood Cell Count 3.91 X10^6/uL (4.5-5.9); Red Cell Distribution Width 19.6 % (11.6-14.8); White Blood Cell Count 2.6 X10^3/uL (4.5-11.0)
[2021-07-10 06:55] LABS: BUN Creatinine Ratio 31.9 (6-22); Blood Urea Nitrogen 30 mg/dL (9-20); Calcium 9.2 mg/dL (8.4-10.2); Carbon Dioxide 28 mmol/L (22-32); Chloride 99 mmol/L (98-107); Estimated Glomerular Filt Rate > 60.0 mL/min (>60); Glucose 111 mg/dL (80-110); HEMOLYSIS < 15 (0-50); Magnesium 1.7 mg/dL (1.6-2.3); Phosphorous 2.8 mg/dL (2.3-3.7); Potassium 4.1 mmol/L (3.4-5.1); Sodium 133 mmol/L (137-145)
[2021-07-10] MEDS: MAGNESIUM SULFATE 2 GM/50 ML PIGGYBACK IV (07:42)
[2021-07-10] MEDS: BUSPIRONE 5 MG TABLET 10 MG PO ×2 (09:58→20:43)
[2021-07-10] MEDS: MULTIVITAMIN 1 TABLET 1 TAB PO (09:59)
[2021-07-10] MEDS: METOPROLOL ER 25 MG TABLET PO ×2 (09:59→20:43)
[2021-07-10] MEDS: FOLIC ACID 1 MG TABLET PO (09:59)
[2021-07-10] MEDS: SODIUM CHLORIDE 0.9% FLUSH 10 ML IV ×3 (09:59→21:46)
[2021-07-10] MEDS: THIAMINE 100 MG TABLET PO (09:59)
[2021-07-10] MEDS: ENOXAPARIN 40 MG/0.4 ML SYRINGE SUBCUT (10:00)
--- NOTE | 2021-07-10 11:10 | PT.IIE ---
Current Diagnoses Alcohol dependence with withdrawal, unspecified (07/09/21) Medical History (Last Reviewed 07/09/21 @ 19:36 by Elena Jason DO) Alcohol use disorder, severe, in early remission Alcoholism Cirrhosis Hypertension Major depression Physical Therapy Inpatient Evaluation/Re-Eval M1 PT/OT-IP Prior Functional Status Start: 07/10/21 12:54 Freq: NEEDED Status: Active Protocol: Document 07/10/21 11:10 AB (Rec: 07/10/21 13:13 AB [email or web address]) Medical Review Prior Functional Status Medical History Reviewed Yes Communication able to make needs known Mobility and Gait pt stated that he is independent with all mobilities and ambulation without AD Social History Household Members none Living Arrangements House Number of Floors (Floors) One Floor Number of Stairs To Enter/Railing? 2 platform steps R rail ascending Home Environment Standard Height Toilet,Walk in Shower Home Equipment Front Wheel Walker,Straight Cane,Hand Held Shower,Grab Bars Near Toilet,Grab Bars In Shower Additional Social History Comment pt has a walk in tub shower pt has an adjustable bed M2 PT-IP Current Condition Start: 07/10/21 12:54 Freq: NEEDED Status: Active Protocol: Document 07/10/21 11:10 AB (Rec: 07/10/21 13:13 AB [email or web address]) Physical Therapy Current Condition Current Condition Evaluation Date 07/10/21 Treatment Diagnosis alcohol withdrawal; difficulty in walking Onset Date 07/09/21 M3 PT-IP Subjective Start: 07/10/21 12:54 Freq: NEEDED Status: Active Protocol: Document 07/10/21 11:10 AB (Rec: 07/10/21 13:13 AB [email or web address]) Subjective Physical Therapy Visit Type Type Initial Evaluation Visit Start Time 11:10 Visit Stop Time 11:50 Total Visit Minutes 40 Number of COOLING ROOM ATTENDANT Visits 0 Physical Therapy Visit Comments Patient Comments pt is agreeable to do PT Therapy Pain Assessment Pain Present Pain Present Denied Pain M4 PT-IP Mobility and Gait Start: 07/10/21 12:54 Freq: NEEDED Status: Active Protocol: Document 07/10/21 11:10 AB (Rec: 07/10/21 13:13 AB [email or web address]) PT-Bed Mobility Assessment Supine to Sit Supine to Sit Independent Sit to Supine Sit to Supine Independent PT-Transfer Assessment Sit to and From Stand Sit to and from Stand Standby Assistance Equipment Transfer Assistive Device None,Gait Belt,Front Wheeled Walker Orthotic/Prosthetic Devices or Brace: No Transfers Transfer Destination Toilet Transfer Technique ambulated Transfer Ability Level of Assist Standby Assistance,1 Person Assistance,Use of Upper Extremities Comments Mobility Comments pt completed supine to sit independent. able to sit on EOB SBA. completed sit to stand SBA and ambulated in room SBA but pt tends to hold on to wall/bed for support. presents with wide base gait. assessed ambulation using FWW and pt completed ~ 35 ft SBA. pt is steadier and pt stated that he plans to use his FWW at home. pt requested to use the toilet and ambulated to the toilet SBA. completed toileting needs without assistance. ambulated out of the toilet without AD to the sink SBA and able to maintain standing SBA while completing handwashing. pt completed up/down step stool using FWW for support SBA. pt stated that his step is not as high as the step stool and the walker will fit on the step. pt requested to go back to bed . independent with sit to supine. positioned in bed. call light and table placed within reach. informed pt regarding PT benefits and stated that he does not need PT here in the hospital. stated that he plans to continue using his FWW at home. also stated that he has balance issues even before and has received HHPT before and does not think that his balance will improve. Pt stated that he will just continue with his HHPT when he goes home. educated pt on safety and agreed to mobility/ ambulate with nursing as much as possible and pt agreed. informed nurse and director of casework regarding pt not wanting PT. Gait Assessment Gait Gait Assistance Required: Standby Assistance,1 Person Assist Distance (Feet) 35 Able to Maintain Weight Bearing Status Yes During Gait Assistive Devices Assistive Device None,Gait Belt,Front Wheeled Walker Orthotic/Prosthetic Devices or Brace: No Gait Deviations General Gait Pattern Wide Based Gait Factors Limiting Gait Function Factors Limiting Gait Function Decreased Activity Tolerance, Poor Balance,Poor Safety Awareness Stair Climbing Assessment Evaluation Level of Assist On Stairs Standby Assistance Devices Stair Climbing Assistive Devices Front Wheel Walker Technique/Endurance Stair Climbing Direction Ascend and Descend Stair Climbing Technique Step to Step Number of Steps Climbed 1 Query Text: Stair Climbing Set # Repetitions (reps) 2 PT-Balance Assessment Sitting Balance and Reactions Static Sitting Balance Ability Normal Dynamic Sitting Balance Ability Good Standing Balance and Reactions Static Standing Balance Ability Good Dynamic Standing Balance Ability Fair Device Used without AD M5 PT-IP Objective Assessments Start: 07/10/21 12:54 Freq: NEEDED Status: Active Protocol: Document 07/10/21 11:10 AB (Rec: 07/10/21 13:13 AB [id number]) Orientation Orientation/Cognition Level of Alertness Alert Orientation Name Language Function Ability Mexican as Second Language, Hard of Hearing Safety Awareness Decreased Safety Awareness Gross Range of Motion Lower Extremity ROM Assessment Within Functional Limits Strength Lower Extremity Strength Assessment Within Functional Limits Coordination Assessment Gross Coordination Gross Coordination WNL Sensation Assessment Sensation Gross Sensation Right LE Impaired,Left LE Impaired Light Touch Impaired Proprioception (Position) Impaired Comments Sensation Comments stated that he has chronic LE neuropathy Muscle Tone Muscle Tone WNL Yes M6 PT-IP Treatment Start: 07/10/21 12:54 Freq: NEEDED Status: Active Protocol: Document 07/10/21 11:10 AB (Rec: 07/10/21 13:13 AB [email or web address]) Physical Therapy Treatment Education Education Provided Safety M7 PT-IP Assessment and Plan Start: 07/10/21 12:54 Freq: NEEDED Status: Active Protocol: Document 07/10/21 11:10 AB (Rec: 07/10/21 13:13 AB [id number]) PT Summary Assessment and Plan Potential Rehabilitation Potential Fair Status of Condition at Evaluation Stable Summary Impairments Balance,Coordination,Sensation ,Cognition,Transfers,Gait, Activity Tolerance Assessment Summary PT eval completed. PT refused further PT. Pt agreed to continue using FWW at home for mobility for safety. informed nurse and director of casework regarding pt not wanting further PT intervention. Frequency of Treatment Frequency Of Treatment Discharge Recommendations To Nursing Amount of Assist Needed Standby Assistance Discharge Recommendations PT Discharge Recommendations Home,Home Health Transportation Needs at Discharge Private Vehicle
--- NOTE | 2021-07-10 11:55 | CM.DPC ---
Addendum entered by YADI Carney 07/10/21 15:30: ADD: In discussion with ED PUBLIC AFFAIRS MANAGER who is very knowledgeable with pt from many previous ED visits for detox, decision that she is willing to consult with [facility] DCR to determine if pt would be an appropriate DCR referral for dispatch to determine if he meets criteria for Involuntary Inpt ETOH tx under [employer] due to his 20+ ED visits for detox, reckless driving under the influence, while continuing to drink large amounts of alcohol. BF Addendum entered by YADI Carney 07/10/21 12:10: ADD: SW called [facility] to confirm they received the fax of clinicals to review and intake staff states they just received 4 intake screen calls and they are now currently full and have not had a chance to review pt's information and aware SW may call later today or tomorrow for bed availability. BF Original Note: DCP Cont: Per MD, pt continues to be treated for withdrawals and his v-tach resolved and magnesium is being treated to get into normal range but possible visual disturbances beginning. DAVONTE met bedside with pt and explained role and he confirms that he currently has a friend taking care of his dog and pt is currently enrolled with a counselor at [facility] in [place] for weekly appointments and that the [facility] has recommended Inpt VANNESSA tx for ETOH and his chief business officer is in agreement due to pt's reckless driving charge and ongoing ETOH use. Pt states he has a hx of Inpt VANNESSA tx at [facility], a tx program in [place], and most recently at [facility] in [place]. Pt states he is mostly in agreement with Inpt ETOH tx but that he plans to get VANNESSA assessment at [facility] in [place] towards getting into ETOH tx (when asked if he had an VANNESSA assessment at [facility] unclear why pt feels he should go through [facility]) but admits he may also be making excuses as he has upcoming imaging in August for his cancer to confirm if it has returned and other family things that need to be taken care of. Pt states his plan is to d/c home once medically stable from ETOH detox and his only concern is making sure he does not have a seizure after d/c and work with his outpt VANNESSA providers towards getting into Inpt ETOH tx and pt is aware that with his Medicare he may only have a couple options of Inpt tx facilities. Per PT, pt was able to participate and has mobility issues at baseline but safely ambulates with FWW independently and could benefit from HH again. Pt was set up with [facility] in Apr 2021 at last admission but no longer open to services with them. DAVONTE called [facility] ETOH detox stabilization in [place] ([phone]) and confirmed they have 2 male detox beds but need pt to call and do phone intake screening and need to review medical documentation to confirm they can manage pt's needs. Plan: DAVONTE updated RN and MD and awaiting review by [facility] to determine if they can accept pt for the remainder of his detox vs remain here and d/c home with new [facility] referral. YADI Carney
--- NOTE | 2021-07-10 12:05 | CM.DPNOTE ---
Faxed HP, labs, med, vs per Kimberly to [facility] [phone], and received conf. Stephanie Nunn CM Asst.
--- NOTE | 2021-07-10 14:20 | CM.DPNOTE ---
Faxed referral packet to [facility], and received fax conf. Stephanie Nunn CM Asst.
--- NOTE | 2021-07-10 15:25 | P.PN_ITS ---
Subjective Subjective Date Patient Seen: 07/10/21 Time Patient Seen: 08:00 Interval history: Today he feels slightly shaky. He had an episode where he thought he heard his dog outside the room, then realized that wouldn't make sense as he's in the hospital. Overall though, no significant withdrawal. His heart rate has improved dramatically since being started on metoprolol and repleting his magnesium. Exam Vital Signs (past 8 hours): - 07/10/21 08:00 07/10/21 12:00 Temperature 97.1 F L 97.7 F Pulse Rate 68 70 Respiratory Rate 16 16 Blood Pressure 133/75 120/72 Pulse Oximetry 99 99 Oxygen Delivery Method Room Air Oxygen Flow Rate 0 Narrative Exam Narrative: GEN: no acute distress, chronically ill appearing HEENT: moist mucous membranes, PERRL NECK: trachea midline, no JVD PULM: clear bilaterally, no wheezes, rhonchi, rales ABD: soft, nontender, nondistended, no organomegaly EXT; warm and well perfused with no edema NEURO: awake, alert, oriented, no focal deficits PSYCH: pleasant Objective Labs Result Diagrams: 07/10/21 06:25 07/10/21 06:25 Labs: Laboratory Results - last 24 hr 07/10/21 07/10/21 06:25 06:25 WBC 2.6 L RBC 3.91 L Hgb 12.3 L Hct 36.5 L MCV 93.3 MCH 31.4 MCHC 33.7 RDW 19.6 H Plt Count 63 L Neut % (Auto) 51.1 Lymph % (Auto) 35.8 [place] % (Auto) 10.8 Eos % (Auto) 1.3 L Baso % (Auto) 1.0 Neut # (Auto) 1300 L Lymph # (Auto) 900 L [place] # (Auto) 300 Eos # (Auto) 0 Baso # (Auto) 0 Sodium 133 L Potassium 4.1 Chloride 99 Carbon Dioxide 28 BUN 30 H Creatinine 0.94 Estimated GFR > 60.0 BUN/Creatinine Ratio 31.9 H Glucose 111 H Calcium 9.2 Phosphorus 2.8 Magnesium 1.7 PFSH Medical History Alcohol use disorder, severe, in early remission Alcoholism Cirrhosis Hypertension Major depression Surgical History H/O rhinoplasty History of fasciotomy 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 Family History Unknown Cancer Social History household members: none Smoking Status: Former smoker alcohol intake: current substance use type: does not use Assessment & Plan Assessment & Plan narrative: Mr. Webster is a 65M with PMH of EtOH abuse presenting with acute alcohol withdrawal requesting detox, found to have atrial fibrillation with RVR. 1. Alcohol abuse with dependence and withdrawal, acute -drinks significantly daily -been to rehab for detox many times -last drink on day of admission -ordered for phenobarb in ED -ordered for CIWA and ativan on floor -ordered for MVI, thiamine, folate -social work consult 2. Atrial fibrillation with RVR, tachycardia now resolved -has known diagnosis of afib -does not take medication at home -reorder metoprolol which has controlled his heart rate -he has frequent falls in setting ot EtOH for now will avoid anticoagulation 3. Ventricular tachycardia, resolved -likely secondary to being off metoprolol and low magnesium -restarted metoprolol -repleted magnesium 4. Alcoholic cirrhosis, presumed -noted in patient's chart -encourage abstinence from alcohol 5. Thrombocytopenia -continue to monitor -no need for transfusion Time Spent With Patient Critical Care time: I spent a total of [] minutes of critical care time on this patient's care today; this time is exclusive of procedural time.
[2021-07-10] MEDS: ONDANSETRON 4 MG/2 ML INJ IV (21:45)
--- NOTE | 2021-07-10 23:42 | PC.NURSE ---
At approx 2130, pt had 1x episode emesis unmeasured in sink. Medications given at 2042, OPTOMETRY ASSISTANT reported no visible pills in emesis. Immediately after vomiting, pt reported no nausea. This RN gave the option of 4 mg IV zofran- pt requested it be administered just in case it wasn't a fluke. Pt reports no other complaints. CIWA 7 for vomiting only, returned to 0 at 2200.
[2021-07-11] VITALS (7 sets, daily range): BP systolic 126; BP diastolic 75–82; PULSE 65–76; RESP 16–18; TEMP 36.4; O2SAT 95–98
[2021-07-11] MEDS: LORazepam 2 MG/ML INJ IV (05:45)
[2021-07-11 06:27] LABS: Hematocrit 37.3 % (41-53); Hemoglobin 12.4 g/dL (13.5-17.5); Mean Corpuscular HGB Conc 33.2 % (30-36); Mean Corpuscular Hemoglobin 31.2 PG (26-34); Mean Corpuscular Volume 93.9 fL (80-100); Platelet Count 68 X10^3/uL (150-400); Red Blood Cell Count 3.98 X10^6/uL (4.5-5.9); Red Cell Distribution Width 19.7 % (11.6-14.8); White Blood Cell Count 2.6 X10^3/uL (4.5-11.0)
[2021-07-11 06:38] LABS: BUN Creatinine Ratio 35.1 (6-22); Blood Urea Nitrogen 27 mg/dL (9-20); Calcium 9.1 mg/dL (8.4-10.2); Carbon Dioxide 28 mmol/L (22-32); Chloride 100 mmol/L (98-107); Estimated Glomerular Filt Rate > 60.0 mL/min (>60); Glucose 128 mg/dL (80-110); HEMOLYSIS < 15 (0-50); Magnesium 1.6 mg/dL (1.6-2.3); Potassium 4.1 mmol/L (3.4-5.1); Sodium 134 mmol/L (137-145)
[2021-07-11] MEDS: FOLIC ACID 1 MG TABLET PO (08:53)
[2021-07-11] MEDS: BUSPIRONE 5 MG TABLET 10 MG PO (08:53)
[2021-07-11] MEDS: MULTIVITAMIN 1 TABLET 1 TAB PO (08:53)
[2021-07-11] MEDS: ENOXAPARIN 40 MG/0.4 ML SYRINGE SUBCUT (08:53)
[2021-07-11] MEDS: SODIUM CHLORIDE 0.9% FLUSH 10 ML IV (08:54)
[2021-07-11] MEDS: THIAMINE 100 MG TABLET PO (08:54)
[2021-07-11] MEDS: METOPROLOL ER 25 MG TABLET PO (08:54)
--- NOTE | 2021-07-11 11:15 | CM.DPC ---
DCP continued: Patient is medically ready for DC according to Dr. Hoff. Patient wants to DC home with [facility] and wants to take [facility] taxi home when DC. CM gave the patients nurse Soheila phone number [phone]. CM called [facility] and spoke with Amaury who stated they have accepted the patients referral and CM let them know the patient is DC home today and Cm asked FELIZ Stephanie to fax signed F2F to [facility] . Bailey Chance RNship fitter.
--- NOTE | 2021-07-11 14:04 | PC.NURSE ---
A&Ox4. VSS. CIWA 1 this morning patient stated feeling he had some tremors but not observed by this tech writer. CIWA 0 this afternoon. Denies n/v, tremors, headache. Discharge instructions reviewed. IV removed. Taxi taking patient home.
--- NOTE | 2021-07-11 17:06 | PM.DS.1 ---
History of Present Illness History of Present Illness Chief complaint: ETOH Narrative: Mr. Webster is a 65M with H Etoh abuse, dependence, cirrhosis, atrial fibrillation who presents for alcohol detox. His last drink was this morning. He has presented for detox many times. He continues to drink significantly daily, over a fifth of hard liquor. When asked what is different this time about quitting, compared to the many other times, he states today he decided to call his sponsor instead of drink, but offers no further insight. He states he does not take his metoprolol any time I'm drinking. He admits drinking daily, and does not know when he last took metoprolol. He has had DTs, and he says no withdrawal seizures and never intubated. In the ED, workup was done, he was noted to be intermittently tachycardic with runs of afib that appeared to be in the 160s, sinus tachycardia, and approximately 35 beats of vtach. Vitals notable for tachycardia. Labs notable for WBC 2.3, hgb 13.2, plts 80, creatinine 0.84. EtOH 110, Mag 1.2. UA negative for infection. He was ordered for phenobarb and felt improved. He was ordered for magnesium. He was admitted for further treatment. Discharge Providers Provider Date of admission: 07/09/21 14:03 Discharge Date: 07/11/21 Primary care physician: Maria Teresa Talley PA-C Consults: 07/09/21 11:[address] [facility] [place] Stat Comment: detox [facility] Consult: Behavioral Health Assess 07/10/21 09:33 Consult to Physical Therapy Evaluate & Treat Comment: Physician Instructions: Evaluate and Treat Discharge provider: Yousif Hoff MD Summary Hospital Course Discharge Diagnosis: 1. Alcohol abuse with dependence and withdrawal 2. Atrial fibrillation with RVR 3. Ventricular tachycardia 4. Alcoholic cirrhosis 5. Pancytopenia secondary to cirrhosis 6. Hypomagnesemia Hospital Course: Mr. Webster presented for detox from alcohol. He had been drinking up to the same day as admission. He was monitored and placed on CIWA scale and felt well and had not needed any significant ativan on day of discharge. Initially in the ED he was noted to have atrial fibrillation with RVR, and a self resolving run of approximately 35 beats of ventricular tachycardia. Magnesium found to be low at 1.2, and he acknowledged not using his metoprolol for weeks. His magnesium was repleted and metoprolol restarted and his heart rate became well controlled. He was offered inpatient rehab, but declined. He was referred to social work for additional resources. Exam Vital Signs (past 8 hours): - 07/11/21 10:00 Pulse Oximetry 98 Oxygen Delivery Method Room Air Oxygen Flow Rate 0 Narrative Exam Narrative: GEN: no acute distress, chronically ill appearing HEENT: moist mucous membranes, PERRL NECK: trachea midline, no JVD PULM: clear bilaterally, no wheezes, rhonchi, rales ABD: soft, nontender, nondistended, no organomegaly EXT; warm and well perfused with no edema NEURO: awake, alert, oriented, no focal deficits PSYCH: pleasant Objective Labs Result Diagrams: 07/11/21 06:12 07/11/21 06:12 Labs: Laboratory Results - last 24 hr 07/11/21 07/11/21 06:12 06:12 WBC 2.6 L RBC 3.98 L Hgb 12.4 L Hct 37.3 L MCV 93.9 MCH 31.2 MCHC 33.2 RDW 19.7 H Plt Count 68 L Sodium 134 L Potassium 4.1 Chloride 100 Carbon Dioxide 28 BUN 27 H Creatinine 0.77 Estimated GFR > 60.0 BUN/Creatinine Ratio 35.1 H Glucose 128 H Calcium 9.1 Magnesium 1.6 PFSH Medical History Alcohol use disorder, severe, in early remission Alcoholism Cirrhosis Hypertension Major depression Surgical History H/O rhinoplasty History of fasciotomy 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 Family History Unknown Cancer Social History household members: none Smoking Status: Former smoker alcohol intake: current substance use type: does not use Discharge Plan Discharge Plan Patient Disposition: Home Provider Discharge Comment: Mr. Webster was admitted with alcohol withdrawal. He also had tachycardia from cardiac irritability from low magnesium levels, and not taking metoprolol recently. He improved quickly. He was able to be discharged home and is planning to follow closely with his PCP. Discharge orders & Medications Prescriptions: Continued multivitamin [Daily Multi-Vitamin] Tablet 1 tab PO QAM 0RF vitamin B complex Tablet 1 tab PO DAILY 0RF aspirin [Adult Low Dose Aspirin] 81 mg tablet,delayed release (DR/EC) 325 mg PO DAILY 0RF Label Comments: shoulde be but not currently cholecalciferol (vitamin D3) 25 mcg (1,000 unit) capsule 4,000 unit PO DAILY 0RF omeprazole 20 mg capsule,delayed release(DR/EC) 20 mg PO QAM 0RF tamsulosin [Flomax] 0.4 mg capsule 0.8 mg PO QPM Qty: 0 0RF trazodone 100 mg tablet 100 mg PO BEDTIME PRN (Reason: Insomnia) Qty: 30 5RF Rx Instructions: Continue 100 mg by mouth at bedtime testosterone cypionate 200 mg/mL oil 200 mg IM Q4W 0RF Label Comments: inject 1 milliliter intramuscularly every 2 weeks gabapentin 600 mg tablet 600 mg PO TID PRN (Reason: Back Pain) 0RF Bacid 1 billion cell- 250 mg Tablet 1 tab PO TIDWM Qty: 120 0RF folic acid 1 mg Tablet 1 mg PO DAILY Qty: 120 0RF multivitamin with folic acid [Tab-A-Michael] 400 mcg Tablet 1 tab PO DAILY Qty: 60 0RF thiamine mononitrate (vit B1) 100 mg Tablet 100 mg PO DAILY Qty: 60 0RF metoprolol tartrate 25 mg tablet 25 mg PO BID Qty: 60 0RF buspirone 10 mg tablet 10 mg PO BID Qty: 60 0RF famotidine [Pepcid AC] 20 mg tablet 40 mg PO BID Qty: 120 0RF melatonin 10 mg capsule 20 mg PO BEDTIME PRN (Reason: sleep) 0RF Follow up/Referrals: Maria Teresa Talley PA-C [Primary Care Provider] - Diet/Activity/Treatments Diet: Regular Discharge Data Primary Care Provider: Maria Teresa Talley
== END 2021-07-11 14:05 | disposition home health service (06) | DRG 897 ==
LOC: ED 11:26 → AC 14:04
PROVIDERS: Admitting Provider Internal Medicine; Emergency Provider Emergency Medicine; PCP Student in an Organized Health Care Education/Training Program; Referring Provider Emergency Medicine; Visit Provider Internal Medicine
DX: F10.239 Alcohol dependence with withdrawal, unspecified (principal); I47.2 Ventricular tachycardia; D61.818 Other pancytopenia; Y90.5 Blood alcohol level of 100-119 mg/100 ml; I48.0 Paroxysmal atrial fibrillation; D69.6 Thrombocytopenia, unspecified; R09.02 Hypoxemia; K70.30 Alcoholic cirrhosis of liver without ascites; I10 Essential (primary) hypertension; F32.A Depression, unspecified; Z20.822 Contact with and (suspected) exposure to COVID-19; Z87.891 Personal history of nicotine dependence
CPT/HCPCS: 36415; 71275; 80048; 80053; 80320; 81001; 82550; 83690; 83735; 83880; 84100; 84484; 85025; 85027; 87635; 93005; 94760; 96365; 96375; 97116; 97161; 99285; 99291; C9803; J1650; J2060; J2405; J2560; J3475

== ENCOUNTER → 2021-07-24 15:18 | Outpatient (CLI) | payer MEDICARE, OTHER, SELFPAY ==
[2021-07-09 16:27] VITALS: BMI 29.8
--- NOTE | 2021-07-24 15:20 | DI.RAD.S_ITS ---
PROCEDURE: XR KNEE RT 3V INDICATIONS: PAIN IN LEFT KNEE TECHNIQUE: 3 views of the knee were acquired. COMPARISON: None. FINDINGS: Bones: No fractures or dislocations. There is mild tricompartmental osteophytosis. Mild to moderate joint space narrowing is demonstrated in the medial compartment with subchondral sclerosis. There is mild narrowing in the patellofemoral compartment. No suspicious bony lesions. Soft tissues: There is a small joint effusion. No suspicious soft tissue calcifications. IMPRESSION: 1. Tricompartmental osteoarthritic changes, most prominent in the medial compartment where there is mild to moderate degeneration. Dictated by: Regan Becerril M.D. on 07/24/2021 at 17:17 Approved by: Regan Becerril M.D. on 07/24/2021 at 17:20
--- NOTE | 2021-07-24 15:20 | DI.RAD.S_ITS ---
PROCEDURE: XR KNEE LT 3V INDICATIONS: PAIN IN LEFT KNEE TECHNIQUE: 3 views of the knee were acquired. COMPARISON: None. FINDINGS: Bones: No fractures or dislocations. No suspicious bony lesions. There is tricompartmental knee joint degeneration, most pronounced in the medial femorotibial compartment and patellofemoral compartment. Soft tissues: Small joint effusion. No suspicious soft tissue calcifications. IMPRESSION: 1. Moderate osteoarthritis. 2. Small knee joint effusion. Dictated by: Yury Barros M.D. on 07/25/2021 at 7:56 Approved by: Yury Barros M.D. on 07/25/2021 at 7:58
== END ==
PROVIDERS: PCP Student in an Organized Health Care Education/Training Program; Referring Provider Student in an Organized Health Care Education/Training Program; Visit Provider Student in an Organized Health Care Education/Training Program
DX: M17.12 Unilateral primary osteoarthritis, left knee (principal); M25.562 Pain in left knee; M25.461 Effusion, right knee
CPT/HCPCS: 73562

== ENCOUNTER 2021-09-10 11:35 | Inpatient (IN) | payer MEDICARE, OTHER, SELFPAY ==
[2021-07-09 16:27] VITALS: BMI 29.8
[2021-09-10] VITALS (27 sets, daily range): BP systolic 103–172; BP diastolic 56–107; PULSE 81–118; RESP 17–31; TEMP 36.4; O2SAT 83–99; BMI 34.2; BMI 33.3
--- NOTE | 2021-09-10 14:29 | ED_ITS ---
HPI - General Adult General Chief complaint: Toxicology Problem Stated complaint: Seeking detox Time Seen by Provider: 09/10/21 14:20 Source: patient and EMS Mode of arrival: EMS Limitations: no limitations History of Present Illness HPI narrative: Patient is a 66-year-old male. Has had no new issues with alcoholism in the past. Arrives by EMS for evaluation of his alcohol abuse and wanting detox. Patient has been evaluated multiple times by myself in this emergency department in the past. His history is well known to myself. He states that his last attempt at detox and rehab was almost 3 months ago. He spent a period of time here in the in this hospital but was discharged home with home health. He s tates that he was sober for short period of time but then started drinking again. He cannot give a specific reason why he started drinking but he thinks it was because of issues with anxiety. Unsure exactly when his last drink actually was. There was some reports that was a couple days ago other reports that was yesterday but then also some reports he drank this morning. He reports no chest pain or shortness of breath or abdominal pain or nausea vomiting. He states he is feeling some anxiety and some shaking. No diarrhea. No skin rashes. No falls. Related Data Home Medications Medication Instructions Recorded Confirmed tamsulosin 0.4 mg capsule (Flomax) 0.8 mg PO QPM #0 cap 06/23/19 07/09/21 aspirin 81 mg tablet,delayed 325 mg PO DAILY 10/11/19 07/09/21 release (Adult Low Dose Aspirin) cholecalciferol (vitamin D3) 25 4,000 unit PO DAILY cap 10/11/19 07/09/21 mcg (1,000 unit) capsule multivitamin (Daily Multi-Vitamin) 1 tab PO QAM 10/11/19 07/09/21 omeprazole 20 mg capsule,delayed 20 mg PO QAM 10/11/19 07/09/21 release vitamin B complex 1 tab PO DAILY 10/11/19 07/09/21 testosterone cypionate 200 mg/mL 200 mg IM Q4W 01/03/21 07/09/21 intramuscular oil melatonin 10 mg capsule 20 mg PO BEDTIME PRN 07/09/21 07/09/21 Previous Rx's Medication Instructions Recorded L.acidophilus-L.bulgar-B.bifid-S.thermoph 1 tab PO TIDWM #120 tab 05/12/21 1 billion cell-250 mg tablet (Bacid) famotidine 20 mg tablet (Pepcid AC) 40 mg PO BID #120 tab 05/12/21 folic acid 1 mg tablet 1 mg PO DAILY #120 tab 05/12/21 metoprolol tartrate 25 mg tablet 25 mg PO BID #60 tab 05/12/21 multivitamin with folic acid 400 1 tab PO DAILY #60 tab 05/12/21 mcg tablet (Tab-A-Michael) thiamine mononitrate (vit B1) 100 100 mg PO DAILY #60 tab 05/12/21 mg tablet naltrexone 50 mg tablet 50 mg PO DAILY #30 tab 08/12/21 trazodone 100 mg tablet 100 mg PO BEDTIME PRN #30 tab 08/15/21 Allergies Allergy/AdvReac Type Severity Reaction Status Date / Time hydrochlorothiazide Allergy Severe Anaphylaxis Verified 09/10/21 11:43 [HYDROCHLOROTHIAZIDE] lisinopril [LISINOPRIL] Allergy Severe Anaphylaxis Verified 09/10/21 11:43 Review of Systems Constitutional Constitutional: Denies chills, Denies fatigue, Denies fever(s), Denies frequent falls and Denies headache(s) ENT Ears, Nose, Mouth, and Throat: Denies headache(s) Cardiovascular Cardiovascular: Denies chest pain and Denies dyspnea Respiratory Respiratory: Denies dyspnea Gastrointestinal Gastrointestinal: Denies abdominal pain, Denies nausea and Denies vomiting Genitourinary Genitourinary: Denies dysuria Musculoskeletal Musculoskeletal: Denies back pain Integumentary/Breasts Skin/Breast: Reports system reviewed and no additional complaints, except as documented Neurologic Neurologic: Reports system reviewed and no additional complaints, except as documented, Reports as per HPI, Denies frequent falls and Denies headache(s) Psychiatric Psychiatric: Reports anxiety Endocrine Endocrine: Denies fatigue Hematologic/Lymphatic On Anticoagulants: No Allergic/Immunologic Allergic/Immunologic: Reports system reviewed and no additional complaints, except as documented 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 Family History Unknown Cancer Social History household members: none Smoking Status: Former smoker alcohol intake: current substance use type: does not use Smoking Status: Former smoker alcohol intake frequency: 3 or more drinks per day Alcohol type: hard liquor Substance Use Type: does not use Exam Initial Vital Signs Initial Vital Signs: Vital Signs Temperature 97.6 F 09/10/21 11:44 Pulse Rate 81 09/10/21 11:44 Respiratory Rate 18 09/10/21 11:44 Blood Pressure 140/73 09/10/21 11:44 Pulse Oximetry 98 09/10/21 11:44 Const General: comfortable, well groomed and No ill appearing HENMT Head: normal to inspection and normocephalic Eyes General: appearance normal, both eyes and all related structures Chest Chest: normal inspection of the chest Resp Effort & Inspection: normal respiratory effort Auscultation: clear to auscultation bilaterally Cardio Rate: regular rate Rhythm: regular rhythm GI Inspection: normal to inspection Palpation: soft and No tender Skin General: no rashes or lesions noted Neuro General: patient alert, patient awake, patient oriented x3 and moves all extremities Speech: speech normal Motor: muscle tone normal throughout Extrem General: normal to inspection and capillary refill normal Psych Appearance: grossly normal Scores GCS Chi coma scale eye opening: Spontaneous Chi coma scale verbal response: Orientated Chi coma scale motor response: Obey commands Chi coma scale total score: 15 Course Orders Ordered: ED Orders 09/10/21 13:03 Consult to [facility] - [employer] Stat 09/10/21 14:40 Complete Blood Count AUTO DIFF Stat Comprehensive Metabolic Panel Stat Ethanol (ETOH) Stat Lipase Stat Magnesium Stat 09/10/21 15:57 COVID19 -Nasal swab/Pre-Proc Stat 09/10/21 16:48 Urine Drug Screen, Rapid Stat 09/10/21 18:11 COVID19 -Nasal swab/Pre-Proc Stat Magnesium Sulfate (Magnesium Sulfate) 2 gm in 50 mls @ 150 mls/hr IV NOW ONE Stop: 09/10/21 18:29 Discontinued Medications Lorazepam (Lorazepam 2 Mg/Ml Inj) 1 mg IV NOW ONE Stop: 09/10/21 14:31 Last Admin: 09/10/21 14:52 Dose: 1 mg Documented by: MICHELA Thiamine HCl (Thiamine 100 Mg Tablet) 100 mg PO NOW ONE Stop: 09/10/21 18:11 Vital Signs Vital signs: Vital Signs - 8 hr 09/10/21 11:44 09/10/21 13:59 09/10/21 14:00 Temperature 97.6 F Pulse Rate 81 91 H 90 Respiratory Rate 18 25 H 20 Blood Pressure 140/73 127/57 L Pulse Oximetry 98 99 99 09/10/21 14:30 09/10/21 15:00 09/10/21 15:30 Temperature Pulse Rate 82 89 91 H Respiratory Rate 18 23 17 Blood Pressure 115/56 L 127/66 103/58 L Pulse Oximetry 98 96 95 09/10/21 16:00 09/10/21 16:30 09/10/21 16:31 Temperature Pulse Rate 92 H 92 H 95 H Respiratory Rate 28 H 22 30 H Blood Pressure 157/69 H 124/56 L Pulse Oximetry 97 83 L 09/10/21 16:47 Temperature Pulse Rate 100 H Respiratory Rate 17 Blood Pressure 172/85 H Pulse Oximetry 97 Medical Decision Making Lab Data Lab results reviewed: Yes I reviewed the patient's lab results. Result diagrams: 09/10/21 14:40 09/10/21 14:40 Labs: Lab Results 09/10/21 09/10/21 09/10/21 Range/Units 14:40 14:40 14:40 WBC 2.2 L (4.5-11.0) X10^3/uL RBC 4.58 (4.5-5.9) X10^6/uL Hgb 13.9 (13.5-17.5) g/dL Hct 41.7 (41-53) % MCV 91.1 (80-100) fL MCH 30.3 (26-34) PG MCHC 33.3 (30-36) % RDW 19.1 H (11.6-14.8) % Plt Count 109 L (150-400) X10^3/uL Neut % (Auto) 47.1 L (50-75) % Lymph % (Auto) 41.1 H (25-40) % [place] % (Auto) 10.2 (3-14) % Eos % (Auto) 0.1 L (2-4) % Baso % (Auto) 1.5 (0-2) % Neut # (Auto) 1000 L (4737-1135) /uL Lymph # (Auto) 900 L (6800-0305) /uL [place] # (Auto) 200 (0-900) /uL Eos # (Auto) 0 (0-450) /uL Baso # (Auto) 0 (0-100) /uL Total Counted Cancelled Seg Neutrophils % Cancelled Band Neutrophils % Cancelled Lymphocytes % (Manual) Cancelled Atypical Lymphs % Cancelled Monocytes % (Manual) Cancelled Eosinophils % (Manual) Cancelled Basophils % (Manual) Cancelled Metamyelocytes % Cancelled Myelocytes % Cancelled Promyelocytes % Cancelled Blast Cells % Cancelled Neutrophils # (Manual) Cancelled Nucleated RBCs Cancelled Differential Comment Cancelled Hypersegmented Neuts Cancelled Reactive Lymphocytes Cancelled Plasma Cells Cancelled Smudge Cells Cancelled Other Cell Type Cancelled Toxic Granulation Cancelled Toxic Vacuolation Cancelled Dohle Bodies Cancelled Jenna Rods Cancelled WBC Morphology Comment Cancelled Platelet Estimate Cancelled Clumped Platelets Cancelled Plt Morphology Comment Cancelled RBC Morphology Cancelled Dimorphic RBCs Cancelled Polychromasia Cancelled Hypochromasia Cancelled Poikilocytosis Cancelled Basophilic Stippling Cancelled Anisocytosis Cancelled Microcytosis Cancelled Macrocytosis Cancelled Spherocytes Cancelled Pappenheimer Bodies Cancelled Sickle Cells Cancelled Target Cells Cancelled Tear Drop Cells Cancelled Ovalocytes Cancelled Stomatocytes Cancelled Helmet Cells Cancelled [place] Bodies Cancelled Premium Rings Cancelled [place] Cells Cancelled Acanthocytes (Spur) Cancelled Rouleaux Cancelled Schistocytes Cancelled Sodium 140 (137-145) mmol/L Potassium 4.3 (3.4-5.1) mmol/L Chloride 102 (98-107) mmol/L Carbon Dioxide 25 (22-32) mmol/L BUN 14 (9-20) mg/dL Creatinine 0.71 (0.66-1.25) mg/dL Estimated GFR > 60.0 (>60) mL/min BUN/Creatinine Ratio 19.7 (6-22) Glucose 88 (80-110) mg/dL Calcium 9.7 (8.4-10.2) mg/dL Magnesium (1.6-2.3) mg/dL Total Bilirubin 1.1 (0.2-1.3) mg/dL AST 70 H (17-59) IU/L ALT 31 (<50) IU/L Alkaline Phosphatase 79 (38-126) U/L Total Protein 7.1 (6.3-8.2) g/dL Albumin 3.7 (3.5-5.0) g/dL Globulin 3.4 (1.7-4.1) g/dL Albumin/Globulin Ratio 1.1 (1.0-2.8) Lipase 52 (23-300) U/L U Opiates 300ng/mL cut (Negative) Ur Oxycodone Screen (Negative) Urine Methadone Screen (Negative) Ur Barbiturates Screen (Negative) U Tricyclic Antidepress (Negative) Ur Phencyclidine Scrn (Negative) Ur Amphetamines Screen (Negative) U Methamphetamines Scrn (Negative) Ur MDMA Scrn (Ecstasy) (Negative) U Benzodiazepines Scrn (Negative) Urine Cocaine Screen (Negative) U Marijuana (THC) Screen (Negative) Ethyl Alcohol 195 H ( - 10) mg/dL SARS-CoV-2 (PCR) (Negative) 09/10/21 09/10/21 09/10/21 Range/Units 14:40 15:57 16:48 WBC (4.5-11.0) X10^3/uL RBC (4.5-5.9) X10^6/uL Hgb (13.5-17.5) g/dL Hct (41-53) % MCV (80-100) fL MCH (26-34) PG MCHC (30-36) % RDW (11.6-14.8) % Plt Count (150-400) X10^3/uL Neut % (Auto) (50-75) % Lymph % (Auto) (25-40) % [place] % (Auto) (3-14) % Eos % (Auto) (2-4) % Baso % (Auto) (0-2) % Neut # (Auto) (1557-0583) /uL Lymph # (Auto) (1825-2361) /uL [place] # (Auto) (0-900) /uL Eos # (Auto) (0-450) /uL Baso # (Auto) (0-100) /uL Total Counted Seg Neutrophils % Band Neutrophils % Lymphocytes % (Manual) Atypical Lymphs % Monocytes % (Manual) Eosinophils % (Manual) Basophils % (Manual) Metamyelocytes % Myelocytes % Promyelocytes % Blast Cells % Neutrophils # (Manual) Nucleated RBCs Differential Comment Hypersegmented Neuts Reactive Lymphocytes Plasma Cells Smudge Cells Other Cell Type Toxic Granulation Toxic Vacuolation Dohle Bodies Jenna Rods WBC Morphology Comment Platelet Estimate Clumped Platelets Plt Morphology Comment RBC Morphology Dimorphic RBCs Polychromasia Hypochromasia Poikilocytosis Basophilic Stippling Anisocytosis Microcytosis Macrocytosis Spherocytes Pappenheimer Bodies Sickle Cells Target Cells Tear Drop Cells Ovalocytes Stomatocytes Helmet Cells [place] Bodies Premium Rings [place] Cells Acanthocytes (Spur) Rouleaux Schistocytes Sodium (137-145) mmol/L Potassium (3.4-5.1) mmol/L Chloride (98-107) mmol/L Carbon Dioxide (22-32) mmol/L BUN (9-20) mg/dL Creatinine (0.66-1.25) mg/dL Estimated GFR (>60) mL/min BUN/Creatinine Ratio (6-22) Glucose (80-110) mg/dL Calcium (8.4-10.2) mg/dL Magnesium 1.3 L (1.6-2.3) mg/dL Total Bilirubin (0.2-1.3) mg/dL AST (17-59) IU/L ALT (<50) IU/L Alkaline Phosphatase (38-126) U/L Total Protein (6.3-8.2) g/dL Albumin (3.5-5.0) g/dL Globulin (1.7-4.1) g/dL Albumin/Globulin Ratio (1.0-2.8) Lipase (23-300) U/L U Opiates 300ng/mL cut Negative (Negative) Ur Oxycodone Screen Negative (Negative) Urine Methadone Screen Negative (Negative) Ur Barbiturates Screen Negative (Negative) U Tricyclic Antidepress Negative (Negative) Ur Phencyclidine Scrn Negative (Negative) Ur Amphetamines Screen Negative (Negative) U Methamphetamines Scrn Negative (Negative) Ur MDMA Scrn (Ecstasy) Negative (Negative) U Benzodiazepines Scrn Positive H (Negative) Urine Cocaine Screen Negative (Negative) U Marijuana (THC) Screen Negative (Negative) Ethyl Alcohol ( - 10) mg/dL SARS-CoV-2 (PCR) Negative (Negative) ECG Data Attestation: I personally reviewed and interpreted this ECG as follows: Interpretation: Sinus tachycardia Ventricular rate 106 First-degree AV block. Oval T1-6 milliseconds Normal QRS Normal axis Artifact noted in V5 V6 Nonspecific ST T wave changes MDM Narrative Medical decision making narrative: He does have an elevated alcohol level. He is alert oriented x3. Was given Ativan which did improve his anxiety and shaking upon arrival. Patient was seen by social work. During his time here in the emergency department he did have a 12nd run of ventricular tachycardia that resolved on its own. Patient was asymptomatic. This is very similar to what happened to him back in June when he was admitted to this facility. At that time he was discharged home on metoprolol but he states he is not currently taking metoprolol. He states that was causing him to become somewhat lightheaded and his blood pressure to be low so his primary provider took him off of this. Patient is open to admission and rehab. Care turned over to Dr. Isabel to follow up and disposition Discharge Plan Departure Prescriptions: No Action trazodone 100 mg tablet 100 mg PO BEDTIME PRN (Reason: Insomnia) Qty: 30 5RF Rx Instructions: Continue 100 mg by mouth at bedtime multivitamin [Daily Multi-Vitamin] Tablet 1 tab PO QAM 0RF vitamin B complex Tablet 1 tab PO DAILY 0RF aspirin [Adult Low Dose Aspirin] 81 mg tablet,delayed release (DR/EC) 325 mg PO DAILY 0RF Label Comments: shoulde be but not currently cholecalciferol (vitamin D3) 25 mcg (1,000 unit) capsule 4,000 unit PO DAILY 0RF omeprazole 20 mg capsule,delayed release(DR/EC) 20 mg PO QAM 0RF tamsulosin [Flomax] 0.4 mg capsule 0.8 mg PO QPM Qty: 0 0RF naltrexone 50 mg tablet 50 mg PO DAILY Qty: 30 3RF testosterone cypionate 200 mg/mL oil 200 mg IM Q4W 0RF Label Comments: inject 1 milliliter intramuscularly every 2 weeks Bacid 1 billion cell- 250 mg Tablet 1 tab PO TIDWM Qty: 120 0RF folic acid 1 mg Tablet 1 mg PO DAILY Qty: 120 0RF multivitamin with folic acid [Tab-A-Michael] 400 mcg Tablet 1 tab PO DAILY Qty: 60 0RF thiamine mononitrate (vit B1) 100 mg Tablet 100 mg PO DAILY Qty: 60 0RF metoprolol tartrate 25 mg tablet 25 mg PO BID Qty: 60 0RF famotidine [Pepcid AC] 20 mg tablet 40 mg PO BID Qty: 120 0RF melatonin 10 mg capsule 20 mg PO BEDTIME PRN (Reason: sleep) 0RF Referrals: Maria Teresa Talley PA-C [Primary Care Provider] - Stand Alone Forms: Naloxone Standing Order AIRAM
[2021-09-10 14:49] LABS: Add Manual Diff / Slide Review NO; Basophils Absolute Auto 0 /uL (0-100); Basophils Percent Auto 1.5 % (0-2); Eosinophils Absolute Auto 0 /uL (0-450); Eosinophils Percent Auto 0.1 % (2-4); Hematocrit 41.7 % (41-53); Hemoglobin 13.9 g/dL (13.5-17.5); Lymphocytes Absolute Auto 900 /uL (1100-4500); Lymphocytes Percent Auto 41.1 % (25-40); Mean Corpuscular HGB Conc 33.3 % (30-36); Mean Corpuscular Hemoglobin 30.3 PG (26-34); Mean Corpuscular Volume 91.1 fL (80-100); Monocytes Absolute Auto 200 /uL (0-900); Monocytes Percent Auto 10.2 % (3-14); Neutrophils Absolute Auto 1000 /uL (1500-7000); Neutrophils Percent Auto 47.1 % (50-75); Platelet Count 109 X10^3/uL (150-400); Red Blood Cell Count 4.58 X10^6/uL (4.5-5.9); Red Cell Distribution Width 19.1 % (11.6-14.8); White Blood Cell Count 2.2 X10^3/uL (4.5-11.0)
[2021-09-10] MEDS: LORazepam 2 MG/ML INJ 1 MG IV ×2 (14:52→18:25)
[2021-09-10 15:17] LABS: Ethanol (ETOH) 195 mg/dL; Lipase 52 U/L (23-300)
[2021-09-10 16:16] LABS: COVID19 -Nasal RAPID Negative (Negative)
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
--- NOTE | 2021-09-10 17:19 | PC.NURSE ---
Pt had an 18 second run of v-tach, pt was asymptomatic. Dr Recinos is aware. Pt was eating a sandwich, talking to social work. Pt denied chest pain and new orders for labs received to add on to original labs.
[2021-09-10 17:21] LABS: UR Morphine/Opiate cutoff 300 Negative (Negative); Ur Creatinine Normal (Normal); Ur Specific Gravity Normal (Normal); Urine Amphetamines Negative (Negative); Urine Barbiturates Negative (Negative); Urine Benzodiazepines Positive (Negative); Urine Cocaine Negative (Negative); Urine MDMA Negative (Negative); Urine Methadone Negative (Negative); Urine Methamphetamines Negative (Negative); Urine Oxycodone Negative (Negative); Urine Phencyclidine Negative (Negative); Urine Tetrahydrocannabinol Negative (Negative); Urine Tricyclic Antidepressant Negative (Negative); Urine pH Normal (Normal)
[2021-09-10 17:48] LABS: Alanine Aminotransferase 31 IU/L (<50); Albumin 3.7 g/dL (3.5-5.0); Albumin Globulin Ratio 1.1 (1.0-2.8); Alkaline Phosphatase 79 U/L (38-126); Aspartate Aminotransferase 70 IU/L (17-59); BUN Creatinine Ratio 19.7 (6-22); Bilirubin Total 1.1 mg/dL (0.2-1.3); Blood Urea Nitrogen 14 mg/dL (9-20); Calcium 9.7 mg/dL (8.4-10.2); Carbon Dioxide 25 mmol/L (22-32); Chloride 102 mmol/L (98-107); Estimated Glomerular Filt Rate > 60.0 mL/min (>60); Globulin 3.4 g/dL (1.7-4.1); Glucose 88 mg/dL (80-110); HEMOLYSIS 25 (0-50); Potassium 4.3 mmol/L (3.4-5.1); Sodium 140 mmol/L (137-145); Total Protein 7.1 g/dL (6.3-8.2)
[2021-09-10 17:49] LABS: Magnesium 1.3 mg/dL (1.6-2.3)
[2021-09-10] MEDS: MAGNESIUM SULFATE 2 GM/50 ML PIGGYBACK IV (18:26)
[2021-09-10] MEDS: THIAMINE 100 MG TABLET PO (18:27)
[2021-09-10] MEDS: LORazepam 2 MG/ML INJ IV (22:07)
[2021-09-11] VITALS (11 sets, daily range): BP systolic 121–165; BP diastolic 73–95; PULSE 64–112; RESP 16–24; TEMP 36.4–36.8; O2SAT 93–98
--- NOTE | 2021-09-11 00:20 | PC.NURSE ---
Pt to room 227 via stretcher at 2335 and was able to transfer self with assistance to bed. Pt awake and alert x 3. Pt oriented to room, call light, bed controls, and tv controls. Laura area was soiled with stool, cleaned and applied barrier cream and a brief. Pt able to use urinal to void. Seizure pads on bed for safety as well as bed alarm. Pt agrees to not get up out of bed without assistance. Pt denies hallucinations, nausea, shortness of breath, pain, headache, or confusion.
--- NOTE | 2021-09-11 00:53 | P.HP_ITS ---
History of Present Illness History of Present Illness Date Patient Seen: 09/11/21 Time Patient Seen: 00:53 Chief complaint: Seeking detox Narrative: The patient is a 66-year-old male well-known to the hospitalist service with a history of alcohol dependence, cirrhosis, atrial fibrillation, recurrent admissions for detox, and hypertension. The patient reports he has been drinking ?off and on?. He admits to drinking a 5th of vodka daily for several days and then discontinuing. He stopped drinking sometime today. He noted some tremor and became concerned about an alcohol withdrawal seizure. The patient denies any headache nausea vomiting or diarrhea. He is known to be tachycardic. He has had runs of V-tach. In the emergency room he had a 6 beat run of V- tach. Patient was found to have a low magnesium of 1.3. He was given 2 g of magnesium. The patient has been to treatment previously. He reports he is being followed by a clinical group ?[facility],? where he has a therapist, supportive employment case manager, who are working with him to get what sounds like alcohol treatment. He denies any fever or chills. He denies any cough. He has no shortness of breath. He has no chest pain. Patient was found to have a blood alcohol level of 195 in the emergency room. He was tremulous, tachycardic, and hypertensive. Who was admitted to the hospital for inpatient treatment of alcohol dependence, and acute delirium tremens. Of note he denies any hallucinations and has no evidence of agitation at this time. 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 Family & Social History Family History (Updated 09/11/21 @ 00:56 by Jenna Kebede MD) Unknown Cancer Sister Alcohol dependence Mother Cardiac arrest Social History: household members none Prior Living Arrangements House Safety & Behavioral: Feels Safe in Current Yes Environment Been Physically Hurt or No Threatened By a Person Suicidal Ideation Description None Suicide Plan Description No Plan Tobacco & Substance use: Smoking Status Former smoker alcohol intake current alcohol intake frequency 3 or more drinks per day Substance Use Type does not use Meds Home Medications and Allergies Home Medications Medication Instructions Recorded Confirmed Type tamsulosin 0.4 mg capsule (Flomax) 0.8 mg PO QPM #0 cap 06/23/19 09/11/21 History cholecalciferol (vitamin D3) 25 4,000 unit PO DAILY cap 10/11/19 09/11/21 History mcg (1,000 unit) capsule multivitamin (Daily Multi-Vitamin) 1 tab PO QAM 10/11/19 09/11/21 History omeprazole 20 mg capsule,delayed 20 mg PO QAM 10/11/19 09/11/21 History release vitamin B complex 1 tab PO DAILY 10/11/19 09/11/21 History testosterone cypionate 200 mg/mL 200 mg IM Q4W 01/03/21 09/11/21 History intramuscular oil folic acid 1 mg tablet 1 mg PO DAILY #120 tab 05/12/21 09/11/21 Rx thiamine mononitrate (vit B1) 100 100 mg PO DAILY #60 tab 05/12/21 09/11/21 Rx mg tablet melatonin 10 mg capsule 20 mg PO BEDTIME PRN 07/09/21 09/11/21 History naltrexone 50 mg tablet 50 mg PO DAILY #30 tab 08/12/21 09/11/21 Rx trazodone 100 mg tablet 100 mg PO BEDTIME PRN #30 tab 08/15/21 09/11/21 Rx L.acidophilus-L.bulgar-B.bifid-S.thermoph 1 tab PO DAILY 09/11/21 09/11/21 History 1 billion cell-250 mg tablet (Bacid) alprazolam 0.25 mg tablet 0.25 mg PO PRN PRN 09/11/21 09/11/21 History magnesium 500 mg tablet 500 mg PO DAILY 09/11/21 09/11/21 History methocarbamol 750 mg tablet 750 mg PO PRN PRN 09/11/21 09/11/21 History sucralfate 1 gram tablet 1 g PO BID 09/11/21 09/11/21 History Allergies Allergy/AdvReac Type Severity Reaction Status Date / Time hydrochlorothiazide Allergy Severe Anaphylaxis Verified 09/10/21 11:43 [HYDROCHLOROTHIAZIDE] lisinopril [LISINOPRIL] Allergy Severe Anaphylaxis Verified 09/10/21 11:43 Review of Systems Review of Systems Narrative: 10 point review of systems is negative Exam Vital Signs (past 8 hours): - 09/10/21 17:00 09/10/21 17:16 09/10/21 17:30 Temperature Pulse Rate 87 100 H 102 H Respiratory Rate 24 31 H 18 Blood Pressure 169/92 H 162/83 H Pulse Oximetry 96 95 99 09/10/21 18:00 09/10/21 18:30 09/10/21 18:31 Temperature Pulse Rate 109 H 109 H 111 H Respiratory Rate 25 H 26 H 21 Blood Pressure 160/91 H 159/93 H Pulse Oximetry 09/10/21 19:00 09/10/21 19:30 09/10/21 20:00 Temperature Pulse Rate 103 H 100 H 104 H Respiratory Rate 18 18 27 H Blood Pressure 148/85 H 156/86 H 160/85 H Pulse Oximetry 89 L 90 L 94 09/10/21 20:30 09/10/21 20:31 09/10/21 20:38 Temperature Pulse Rate 103 H 102 H 97 H Respiratory Rate 19 26 H 18 Blood Pressure 155/107 H 140/81 Pulse Oximetry 93 94 94 09/10/21 21:00 09/10/21 21:01 09/10/21 22:00 Temperature Pulse Rate 95 H 100 H Respiratory Rate 19 24 17 Blood Pressure 158/78 H 161/92 H Pulse Oximetry 94 92 93 09/10/21 22:30 09/10/21 23:38 09/11/21 00:48 Temperature 97.7 F Pulse Rate 118 H 96 H 112 H Respiratory Rate 17 18 22 Blood Pressure 154/76 H 165/95 H 165/95 H Pulse Oximetry 87 L 97 98 Oxygen Delivery Method Room Air Narrative Exam Narrative: Pleasant elderly male lying in bed, with a resting tremor, no active hallucination or agitation at this time Const Other: HEENT: Normocephalic atraumatic, extraocular muscles are intact, he has got bilateral proptosis, oropharynx is clear, neck is supple without adenopathy or thyromegaly Resp Other: Lungs: Clear to auscultation Cardio Other: Tachycardic: Irregularly irregular normal S1-S2 GI Other: Abdomen soft nontender nondistended Skin Other: Skin exam chronic venous stasis changes of the lower extremity Neuro Other: Cranial nerves 2-12 appear to be intact, strength is symmetric and equal, sensations grossly intact, gait is not assessed Extrem Other: Extremity no edema Left forearm with a well-healed surgical scar from prior fasciotomy Psych Other: The patient has normal thought content, mood, affect and judgment no active hallucinations at this time Objective Labs Result Diagrams: 09/10/21 14:40 09/10/21 14:40 Labs: Laboratory Results - last 24 hr 09/10/21 09/10/21 09/10/21 14:40 14:40 14:40 WBC 2.2 L RBC 4.58 Hgb 13.9 Hct 41.7 MCV 91.1 MCH 30.3 MCHC 33.3 RDW 19.1 H Plt Count 109 L Neut % (Auto) 47.1 L Lymph % (Auto) 41.1 H Parmer % (Auto) 10.2 Eos % (Auto) 0.1 L Baso % (Auto) 1.5 Neut # (Auto) 1000 L Lymph # (Auto) 900 L Parmer # (Auto) 200 Eos # (Auto) 0 Baso # (Auto) 0 Total Counted Cancelled Seg Neutrophils % Cancelled Band Neutrophils % Cancelled Lymphocytes % (Manual) Cancelled Atypical Lymphs % Cancelled Monocytes % (Manual) Cancelled Eosinophils % (Manual) Cancelled Basophils % (Manual) Cancelled Metamyelocytes % Cancelled Myelocytes % Cancelled Promyelocytes % Cancelled Blast Cells % Cancelled Neutrophils # (Manual) Cancelled Nucleated RBCs Cancelled Differential Comment Cancelled Hypersegmented Neuts Cancelled Reactive Lymphocytes Cancelled Plasma Cells Cancelled Smudge Cells Cancelled Other Cell Type Cancelled Toxic Granulation Cancelled Toxic Vacuolation Cancelled Dohle Bodies Cancelled Jenna Rods Cancelled WBC Morphology Comment Cancelled Platelet Estimate Cancelled Clumped Platelets Cancelled Plt Morphology Comment Cancelled RBC Morphology Cancelled Dimorphic RBCs Cancelled Polychromasia Cancelled Hypochromasia Cancelled Poikilocytosis Cancelled Basophilic Stippling Cancelled Anisocytosis Cancelled Microcytosis Cancelled Macrocytosis Cancelled Spherocytes Cancelled Pappenheimer Bodies Cancelled Sickle Cells Cancelled Target Cells Cancelled Tear Drop Cells Cancelled Ovalocytes Cancelled Stomatocytes Cancelled Helmet Cells Cancelled Neal-Ben [place] Bodies Cancelled [place] Rings Cancelled Marcos Cells Cancelled Acanthocytes (Spur) Cancelled Rouleaux Cancelled Schistocytes Cancelled Sodium 140 Potassium 4.3 Chloride 102 Carbon Dioxide 25 BUN 14 Creatinine 0.71 Estimated GFR > 60.0 BUN/Creatinine Ratio 19.7 Glucose 88 Calcium 9.7 Magnesium Total Bilirubin 1.1 AST 70 H ALT 31 Alkaline Phosphatase 79 Total Protein 7.1 Albumin 3.7 Globulin 3.4 Albumin/Globulin Ratio 1.1 Lipase 52 U Opiates 300ng/mL cut Ur Oxycodone Screen Urine Methadone Screen Ur Barbiturates Screen U Tricyclic Antidepress Ur Phencyclidine Scrn Ur Amphetamines Screen U Methamphetamines Scrn Ur MDMA Scrn (Ecstasy) U Benzodiazepines Scrn Urine Cocaine Screen U Marijuana (THC) Screen Ethyl Alcohol 195 H SARS-CoV-2 (PCR) 09/10/21 09/10/21 09/10/21 14:40 15:57 16:48 WBC RBC Hgb Hct MCV MCH MCHC RDW Plt Count Neut % (Auto) Lymph % (Auto) Parmer % (Auto) Eos % (Auto) Baso % (Auto) Neut # (Auto) Lymph # (Auto) Parmer # (Auto) Eos # (Auto) Baso # (Auto) Total Counted Seg Neutrophils % Band Neutrophils % Lymphocytes % (Manual) Atypical Lymphs % Monocytes % (Manual) Eosinophils % (Manual) Basophils % (Manual) Metamyelocytes % Myelocytes % Promyelocytes % Blast Cells % Neutrophils # (Manual) Nucleated RBCs Differential Comment Hypersegmented Neuts Reactive Lymphocytes Plasma Cells Smudge Cells Other Cell Type Toxic Granulation Toxic Vacuolation Dohle Bodies Jenna Rods WBC Morphology Comment Platelet Estimate Clumped Platelets Plt Morphology Comment RBC Morphology Dimorphic RBCs Polychromasia Hypochromasia Poikilocytosis Basophilic Stippling Anisocytosis Microcytosis Macrocytosis Spherocytes Pappenheimer Bodies Sickle Cells Target Cells Tear Drop Cells Ovalocytes Stomatocytes Helmet Cells Neal-Ben Arnold Bodies [place] Rings [place] Cells Acanthocytes (Spur) Rouleaux Schistocytes Sodium Potassium Chloride Carbon Dioxide BUN Creatinine Estimated GFR BUN/Creatinine Ratio Glucose Calcium Magnesium 1.3 L Total Bilirubin AST ALT Alkaline Phosphatase Total Protein Albumin Globulin Albumin/Globulin Ratio Lipase U Opiates 300ng/mL cut Negative Ur Oxycodone Screen Negative Urine Methadone Screen Negative Ur Barbiturates Screen Negative U Tricyclic Antidepress Negative Ur Phencyclidine Scrn Negative Ur Amphetamines Screen Negative U Methamphetamines Scrn Negative Ur MDMA Scrn (Ecstasy) Negative U Benzodiazepines Scrn Positive H Urine Cocaine Screen Negative U Marijuana (THC) Screen Negative Ethyl Alcohol SARS-CoV-2 (PCR) Negative Assessment & Plan Assessment & Plan narrative: The patient is a 66-year-old male with a history of alcohol dependence admitted to the hospital for acute alcohol withdrawal * Patient reports he continues to drink a 5th of vodka daily * He is ambivalent regarding his desire for recurrent inpatient detox, he does admit to wanting to discontinue drinking * Will consult social work again regarding possible inpatient versus outpatient treatment at discharge * He is hypertensive, has a tremor, and is tachycardic * Will start Librium 50 mg q.6 hours * Will provide 1 dose of phenobarbital 130 mg now * Patient will continue on multivitamin and thiamine * Will start IV fluid with D5 half-normal saline * His magnesium level was quite low, he received 2 g in the ER, will recheck magnesium level in the morning Atrial fibrillation, with intermittent rapid ventricular response * Given elevated blood pressure and heart rate will resume metoprolol * It appears patient is not compliant with this at home * Given his significant alcohol dependence, and frequent falls agree with not anticoagulating him Ventricular tachycardia * Likely precipitated by hypo magnesemia * Patient received 2 g of magnesium in the emergency room, will recheck in the morning Alcoholic cirrhosis * Platelets 109, AST of 70, ALT of 31 Thrombocytopenia * Platelet count 109, likely related to toxic affects of alcohol I have utilized all available methods to obtain update and review the patient's current medications Patient does not have a DPOA, however he indicates he would like to be full code, he states that Dean Lundberg his son-in-law would be his surrogate decision maker for him Patient will be admitted as an inpatient. Despite platelet count 109 the patient will be placed on DVT prophylaxis, will continue to monitor his platelet count closely Time Spent With Patient Critical Care time: I spent a total of [] minutes of critical care time on this patient's care today; this time is exclusive of procedural time. Quality VTE Deep Vein Thrombosis/Pulmonary Embolism Present on Admission: No
[2021-09-11] MEDS: DEXTROSE 5%-0.9% NS 1,000 ML 100 ML IV (01:31)
[2021-09-11] MEDS: SODIUM CHLORIDE 0.9% IV (01:38)
[2021-09-11] MEDS: PANTOPRAZOLE DR 20 MG TABLET PO ×2 (01:38→08:37)
[2021-09-11] MEDS: PHENOBARBITAL IV (01:38)
[2021-09-11] MEDS: METOPROLOL ER 25 MG TABLET PO ×3 (01:39→20:31)
--- NOTE | 2021-09-11 03:48 | PC.NURSE ---
ICU reports 14 beat run of V-tach. Notified Dr. Kebede and stat Mag ordered.
[2021-09-11 04:24] LABS: Add Manual Diff / Slide Review NO; Basophils Absolute Auto 0 /uL (0-100); Basophils Percent Auto 0.5 % (0-2); Eosinophils Absolute Auto 0 /uL (0-450); Eosinophils Percent Auto 0.7 % (2-4); Hematocrit 37.7 % (41-53); Hemoglobin 12.9 g/dL (13.5-17.5); Lymphocytes Absolute Auto 900 /uL (1100-4500); Lymphocytes Percent Auto 30.7 % (25-40); Mean Corpuscular HGB Conc 34.1 % (30-36); Mean Corpuscular Hemoglobin 30.3 PG (26-34); Mean Corpuscular Volume 88.9 fL (80-100); Monocytes Absolute Auto 300 /uL (0-900); Monocytes Percent Auto 11.9 % (3-14); Neutrophils Absolute Auto 1600 /uL (1500-7000); Neutrophils Percent Auto 56.2 % (50-75); Platelet Count 96 X10^3/uL (150-400); Red Blood Cell Count 4.24 X10^6/uL (4.5-5.9); Red Cell Distribution Width 18.7 % (11.6-14.8); White Blood Cell Count 2.9 X10^3/uL (4.5-11.0)
[2021-09-11 04:30] LABS: Magnesium 1.6 mg/dL (1.6-2.3)
[2021-09-11 04:31] LABS: Alanine Aminotransferase 30 IU/L (<50); Albumin 3.2 g/dL (3.5-5.0); Albumin Globulin Ratio 0.9 (1.0-2.8); Alkaline Phosphatase 66 U/L (38-126); Aspartate Aminotransferase 59 IU/L (17-59); BUN Creatinine Ratio 30.5 (6-22); Blood Urea Nitrogen 18 mg/dL (9-20); Calcium 9.4 mg/dL (8.4-10.2); Carbon Dioxide 30 mmol/L (22-32); Chloride 104 mmol/L (98-107); Estimated Glomerular Filt Rate > 60.0 mL/min (>60); Globulin 3.5 g/dL (1.7-4.1); Glucose 128 mg/dL (80-110); HEMOLYSIS 24 (0-50); Potassium 3.7 mmol/L (3.4-5.1); Sodium 135 mmol/L (137-145); Total Protein 6.7 g/dL (6.3-8.2)
[2021-09-11] MEDS: MAGNESIUM SULFATE 2 GM/50 ML PIGGYBACK IV ×2 (04:43→09:50)
[2021-09-11] MEDS: chlordiazePOXIDE 25 MG CAPSULE 50 MG PO ×3 (05:15→17:44)
[2021-09-11] MEDS: LACTOBACILLUS ACIDOPHILUS TABLET 1 EACH PO (08:37)
[2021-09-11] MEDS: CHOLECALCIFEROL (VITAMIN D3) 1,000 UNIT TABLET 4000 UNIT PO (08:37)
[2021-09-11] MEDS: MULTIVITAMIN 1 TABLET 1 TAB PO (08:37)
[2021-09-11] MEDS: SUCRALFATE 1 GM TABLET PO ×2 (08:37→20:31)
[2021-09-11] MEDS: THIAMINE 100 MG TABLET PO (08:37)
[2021-09-11] MEDS: FOLIC ACID 1 MG TABLET PO (08:38)
[2021-09-11] MEDS: LORazepam 2 MG/ML INJ IV ×2 (08:43→20:30)
[2021-09-11] MEDS: CALCIUM CARBONATE 500 MG TAB PO (09:50)
[2021-09-11] MEDS: LORazepam 1 MG TABLET PO ×2 (10:42→17:22)
--- NOTE | 2021-09-11 11:46 | PT.IIE ---
Current Diagnoses Alcohol dependence with withdrawal, unspecified (09/10/21) Medical History (Last Reviewed 09/11/21 @ 00:56 by Jenna Kebede MD) Alcohol use disorder, severe, in early remission Alcoholism Cirrhosis Hypertension Major depression Physical Therapy Inpatient Evaluation/Re-Eval M1 PT/OT-IP Prior Functional Status Start: 09/11/21 12:59 Freq: NEEDED Status: Active Protocol: Document 09/11/21 11:46 AB (Rec: 09/11/21 13:10 AB [id number]) Medical Review Prior Functional Status Medical History Reviewed Yes Communication able to make needs known Mobility and Gait pt stated that he is modified independent with all mobilities and ambulation without AD but occasionally uses a FWW Prior Functional Level (Other details) pt stated that he has chronic balance issues Social History Household Members none Living Arrangements House Number of Floors (Floors) One Floor Number of Stairs To Enter/Railing? 2 platform step to enter Home Environment Standard Height Toilet,Walk in Shower Home Equipment Front Wheel Walker,Hand Held Shower,Grab Bars In Shower M2 PT-IP Current Condition Start: 09/11/21 12:59 Freq: NEEDED Status: Active Protocol: Document 09/11/21 11:46 AB (Rec: 09/11/21 13:10 AB [email or web address]) Physical Therapy Current Condition Current Condition Evaluation Date 09/11/21 Treatment Diagnosis alcohol withdrawal; difficulty in walking Onset Date 09/10/21 M3 PT-IP Subjective Start: 09/11/21 12:59 Freq: NEEDED Status: Active Protocol: Document 09/11/21 11:46 AB (Rec: 09/11/21 13:10 AB [email or web address]) Subjective Physical Therapy Visit Type Type Initial Evaluation Visit Start Time 11:46 Visit Stop Time 12:05 Total Visit Minutes 19 Number of PETROLEUM ANALYST Visits 0 Physical Therapy Visit Comments Patient Comments requested to use the toilet Therapy Pain Assessment Pain Present Pain Present Denied Pain M4 PT-IP Mobility and Gait Start: 09/11/21 12:59 Freq: NEEDED Status: Active Protocol: Document 09/11/21 11:46 AB (Rec: 09/11/21 13:10 AB [id number]) PT-Bed Mobility Assessment Supine to Sit Supine to Sit Standby Assistance Sit to Supine Sit to Supine Standby Assistance PT-Transfer Assessment Sit to and From Stand Sit to and from Stand Standby Assistance,Contact Guard Assistance,1 Person Assistance,Use of Upper Extremities Equipment Transfer Assistive Device Gait Belt,Front Wheeled Walker Orthotic/Prosthetic Devices or Brace: No Transfers Transfer Destination Toilet Transfer Technique ambulate Transfer Ability Level of Assist Standby Assistance,Contact Guard Assistance,1 Person Assistance,Use of Upper Extremities Comments Mobility Comments pt is impulsive and constant cues required for safety. pt stated that he is impatient. completed supine to sit SBA. requested to use the toilet and completed sit to stand SBA to CGA and ambulated to the toilet using FWW SBA to CGA. pt tends to let go of one side of FWW and reaches for the wall or EOB for support. completed toileting SBA. sit to stand from the toilet using grab bar SBA and ambulated back to the the SBA to CGA using FWW. pt refused further activity and wants to go back to bed. completed sit to supine sBA. positioned pt in bed. call light and table placed within reach. Gait Assessment Gait Gait Assistance Required: Standby Assistance,Contact Guard Assist Distance (Feet) 15 Able to Maintain Weight Bearing Status Yes During Gait Assistive Devices Assistive Device Gait Belt,Front Wheeled Walker Orthotic/Prosthetic Devices or Brace: No Gait Deviations General Gait Pattern Antalgic,Ataxic,Decreased Stride Length,Decreased Feet Clearance,Step-to Gait,Wide Based Gait Factors Limiting Gait Function Factors Limiting Gait Function Decreased Activity Tolerance, Difficulty Following Directions,Poor Balance,Poor Safety Awareness PT-Balance Assessment Sitting Balance and Reactions Static Sitting Balance Ability Good Dynamic Sitting Balance Ability Good Standing Balance and Reactions Static Standing Balance Ability Good Dynamic Standing Balance Ability Fair Device Used without AD M5 PT-IP Objective Assessments Start: 09/11/21 12:59 Freq: NEEDED Status: Active Protocol: Document 09/11/21 11:46 AB (Rec: 09/11/21 13:10 AB [id number]) Orientation Orientation/Cognition Level of Alertness Alert Orientation Name,Place,Situation Safety Awareness Decreased Safety Awareness Memory Description No Deficits Noted Gross Range of Motion Lower Extremity ROM Assessment Within Functional Limits Strength Lower Extremity Strength Hip 4-/5 Knee 4-/5 Muscle Tone Muscle Tone WNL Yes M6 PT-IP Treatment Start: 09/11/21 12:59 Freq: NEEDED Status: Active Protocol: Document 09/11/21 11:46 AB (Rec: 09/11/21 13:10 AB [email or web address]) Physical Therapy Treatment Education Education Provided Safety M7 PT-IP Assessment and Plan Start: 09/11/21 12:59 Freq: NEEDED Status: Active Protocol: Document 09/11/21 11:46 AB (Rec: 09/11/21 13:10 AB [email or web address]) PT Summary Assessment and Plan Potential Rehabilitation Potential Fair Status of Condition at Evaluation Evolving Summary Impairments Pain,ROM,Strength,Balance, Coordination,Sensation, Cognition,Bed Mobility, Transfers,Gait,Activity Tolerance Assessment Summary pt requiring SBA to CGA with mobility using FWW. pt can be impulsive and has decrease safety awareness. will continue to assess progress. pt does not have any assistance at home. will require HH services on d/c. Goals Bed Mobility Goal Independent Transfer Goal Independent,Front Wheeled Walker Gait Goal Independent,Front Wheel Walker Gait Distance 200 Other Goals improve ambulation without AD 150ft SBA up/down 2 platform step using FWW or without AD SBA Days to Meet Goals 10 Treatment Plan Physical Therapy Treatment Plan Bed Mobility Training,Transfer Training,Gait Training, Therapeutic Exercise,Balance Retraining,Discharge Planning, Hot or Cold Pack,Neuromuscular Re-ed,Coordination Retraining Precautions Other Precautions falls; contact precautions: MRSA Recommendations To Nursing Amount of Assist Needed 1 Person Assist Discharge Recommendations PT Discharge Recommendations Home with Assistance,Home Health Transportation Needs at Discharge Private Vehicle
--- NOTE | 2021-09-11 11:49 | OT.IPNOTE ---
Went to see pt for OT eval. Pt asleep and per nursing to allow pt to sleep and therefore to check on the pt later for OT eval.
--- NOTE | 2021-09-11 14:24 | OT.IPNOTE ---
Attempted to see pt in PM for OT meagan, pt getting his blood draw.
[2021-09-11 15:07] LABS: BUN Creatinine Ratio 23.8 (6-22); Blood Urea Nitrogen 15 mg/dL (9-20); Calcium 9.1 mg/dL (8.4-10.2); Carbon Dioxide 26 mmol/L (22-32); Chloride 104 mmol/L (98-107); Estimated Glomerular Filt Rate > 60.0 mL/min (>60); Glucose 119 mg/dL (80-110); HEMOLYSIS 15 (0-50); Phosphorous 2.7 mg/dL (2.3-3.7); Sodium 135 mmol/L (137-145)
[2021-09-11] MEDS: TAMSULOSIN 0.4 MG CAPSULE 0.8 MG PO (17:22)
[2021-09-11] MEDS: LOPERAMIDE 2 MG CAPSULE PO (21:39)
[2021-09-11] MEDS: methocarbamoL 500 MG TABLET 750 MG PO (21:40)
[2021-09-11 21:49] LABS: Magnesium 2.1 mg/dL (1.6-2.3)
[2021-09-12 00:25] VITALS: PULSE 60; RESP 18; O2SAT 97
[2021-09-12] MEDS: chlordiazePOXIDE 25 MG CAPSULE 50 MG PO ×3 (00:33→12:09)
[2021-09-12 01:09] VITALS: BP 138/74; TEMP 36.7
[2021-09-12] MEDS: DEXTROSE 5%-0.9% NS 1,000 ML 100 ML IV (02:58)
[2021-09-12 04:47] VITALS: BP 125/72; PULSE 67; RESP 18; TEMP 36.6; O2SAT 97
[2021-09-12] MEDS: methocarbamoL 500 MG TABLET 750 MG PO (06:03)
[2021-09-12] MEDS: MULTIVITAMIN 1 TABLET 1 TAB PO (08:05)
[2021-09-12] MEDS: METOPROLOL ER 25 MG TABLET PO (08:05)
[2021-09-12] MEDS: CHOLECALCIFEROL (VITAMIN D3) 1,000 UNIT TABLET 4000 UNIT PO (08:05)
[2021-09-12] MEDS: PANTOPRAZOLE DR 20 MG TABLET PO (08:05)
[2021-09-12] MEDS: LACTOBACILLUS ACIDOPHILUS TABLET 1 EACH PO (08:05)
[2021-09-12] MEDS: SUCRALFATE 1 GM TABLET PO (08:05)
[2021-09-12] MEDS: ENOXAPARIN 40 MG/0.4 ML SYRINGE SUBCUT (08:05)
[2021-09-12] MEDS: THIAMINE 100 MG TABLET PO (08:06)
[2021-09-12] MEDS: FOLIC ACID 1 MG TABLET PO (08:07)
[2021-09-12 08:11] VITALS: BP 130/73; PULSE 97; RESP 21; TEMP 36.2; O2SAT 95
--- NOTE | 2021-09-12 09:15 | PC.NURSE ---
0845: Pt noted to be in afib/flutter. No s/s distress noted, no c/o chest pain or SOB. Pt has hx afib. MD notified, no orders. AM dose of metoprolol administered.
[2021-09-12 10:09] VITALS: BP 130/73; PULSE 98
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
--- NOTE | 2021-09-12 12:37 | P.PN_ITS ---
Subjective Subjective Interval history: The patient denies any active complaints this morning. He is requesting to go home, as she feels back to his baseline. Exam Vital Signs (past 8 hours): - 09/12/21 04:47 09/12/21 08:11 09/12/21 10:09 Temperature 97.9 F 97.2 F L Pulse Rate 67 97 H 98 H Respiratory Rate 18 21 Blood Pressure 125/72 130/73 130/73 Pulse Oximetry 97 95 Oxygen Delivery Method Room Air Oxygen Flow Rate 0 Narrative Exam Narrative: Const Other: HEENT:? Normocephalic atraumatic, he has bilateral proptosis, oropharynx is clear, neck is supple without adenopathy Resp Other: Lungs: Clear to auscultation bilaterally Cardio Other: Tachycardic: Irregularly irregular, normal S1-S2, no extra heart sounds noted GI Other: Abdomen soft non-tender, non-distended,? Skin Other: Skin exam chronic venous stasis changes of the lower extremity Neuro Other: CN II-XII grossly intact, no grossly focal neurological deficits noted, no tremulousness or anxiety noted Extrem Other: Extremity no edema Left forearm with a well-healed surgical scar from prior fasciotomy Psych Other: The patient has normal thought content, mood, affect and judgment no active hallucinations at this time Objective Labs Result Diagrams: 09/11/21 04:10 09/11/21 14:25 Labs: Laboratory Results - last 24 hr 09/11/21 09/11/21 14:25 14:25 Sodium 135 L Potassium 4.0 Chloride 104 Carbon Dioxide 26 BUN 15 Creatinine 0.63 L Estimated GFR > 60.0 BUN/Creatinine Ratio 23.8 H Glucose 119 H Calcium 9.1 Phosphorus 2.7 Magnesium 2.1 PFSH Medical History Alcohol use disorder, severe, in early remission Alcoholism Cirrhosis Hypertension Major depression Surgical History H/O rhinoplasty History of fasciotomy 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 Family History (Updated 09/11/21 @ 00:56 by Jenna Kebede MD) Unknown Cancer Sister Alcohol dependence Mother Cardiac arrest Social History household members: none Smoking Status: Former smoker alcohol intake: current substance use type: does not use Assessment & Plan Assessment & Plan narrative: The patient is a 66-year-old male with a history of alcohol dependence admitted to the hospital for acute alcohol withdrawal. 1. Alcohol withdrawal, suspected, mild * Patient reports he continues to drink a 5th of vodka daily, with last drink on evening of September 09, 2021 * He is ambivalent regarding his desire for?recurrent inpatient detox, he does want to quit drinking * CIWA activation has remained low throughout stay, with patient requesting to go home 2. Hypomagnesemia, likely EtOH-related * Magnesium replenished, and patient on magnesium supplementation at home, too 3. Atrial fibrillation, with intermittent rapid ventricular response, likely EtOH-related * Given his significant alcohol dependence, and frequent falls, agree with not anticoagulating him 4. Non-sustained ventricular tachycardia, likely hypomagnesemia related, resolved with Mg replenishment 5. Alcoholic hepatosteatosis, stable 6. Pancytopenia, likely due to bone marrow suppression from chronic EtOH consumption, stable Code: Full code Proxy: Dean Lundberg, son-in-law I have utilized all available immediate methods to obtain, update, or review the patient's current medications. Time Spent With Patient Critical Care time: I spent a total of [] minutes of critical care time on this patient's care today; this time is exclusive of procedural time. Quality VTE Deep Vein Thrombosis/Pulmonary Embolism Present on Admission: No MIPS - Admit I confirm the patient?s Advance Care Plan is present, Code status is documented, Surrogate decision maker is in patient?s record [If Yes, STOP here]: Yes
--- NOTE | 2021-09-12 12:47 | PM.DS.1 ---
History of Present Illness History of Present Illness Chief complaint: Seeking detox Narrative: The patient is a 66-year-old male well-known to the hospitalist service with a history of alcohol dependence, cirrhosis, atrial fibrillation, recurrent admissions for detox, and hypertension.? The patient reports he has been drinking ?off and on?.? He admits to drinking a 5th of vodka daily for several days and then discontinuing.? He stopped drinking sometime today.? He noted some tremor and became concerned about an alcohol withdrawal seizure.? The patient denies any headache nausea vomiting or diarrhea.? He is known to be tachycardic.? He has had runs of V-tach.? In the emergency room he had a 6 beat run of V-tach.? Patient was found to have a low magnesium of 1.3.? He was given 2 g of magnesium.? The patient has been to treatment previously.? He reports he is being followed by a clinical group ?[facility],? where he has a therapist, returned case inspector, who are working with him to get what sounds like alcohol treatment.? He denies any fever or chills.? He denies any cough.? He has no shortness of breath.? He has no chest pain.? Patient was found to have a blood alcohol level of 195 in the emergency room.? He was tremulous, tachycardic, and hypertensive.? Who was admitted to the hospital for inpatient treatment of alcohol dependence, and acute delirium tremens.? Of note he denies any hallucinations and has no evidence of agitation at this time. Written by admitting provider. Discharge Providers Provider Date of admission: 09/10/21 22:42 Discharge Date: 09/12/21 Primary care physician: Maria Teresa Talley PA-C Consults: 09/10/21 13:03 Consult to [facility] - [employer] Stat Comment: [facility] Consult needed for:: Substance Abuse Assess 09/11/21 00:12 Consult to Dietitian, Adult Routine Comment: alcohol- 1 5th daily Reason For Exam: prior gastric bypass, does not eat when he drinks 09/11/21 00:47 Consult to Discharge Planning Routine Comment: Consult to Occupational Therapy Evaluate & Treat Comment: Physician Instructions: Evaluate and treat 09/11/21 00:48 Consult to Dietitian, Adult Routine Comment: Reason For Exam: alcoholic Consult to Physical Therapy Evaluate & Treat Comment: Physician Instructions: Evaluate and Treat Discharge provider: Jana Carlos MD Summary Hospital Course Discharge Diagnosis: The patient is a 66-year-old male with a history of alcohol dependence admitted to the hospital for acute alcohol withdrawal. 1. Alcohol withdrawal, suspected, mild ? Patient reports he continues to drink a 5th of vodka daily, with last drink on evening of September 09, 2021 ? He is ambivalent regarding his desire for recurrent inpatient detox, he does want to quit drinking ? CIWA activation has remained low throughout stay, with patient requesting to go home 2. Hypomagnesemia, likely EtOH-related ? Magnesium replenished, and patient on magnesium supplementation at home, too 3. Atrial fibrillation, with intermittent rapid ventricular response, likely EtOH-related ? Given his significant alcohol dependence, and frequent falls, agree with not anticoagulating him 4. Non-sustained ventricular tachycardia, likely hypomagnesemia related, resolved with Mg replenishment 5. Alcoholic hepatosteatosis, stable 6. Pancytopenia, likely due to bone marrow suppression from chronic EtOH consumption, stable? Exam Vital Signs (past 8 hours): - 09/12/21 08:11 09/12/21 10:09 Temperature 97.2 F L Pulse Rate 97 H 98 H Respiratory Rate 21 Blood Pressure 130/73 130/73 Pulse Oximetry 95 Oxygen Delivery Method Room Air Oxygen Flow Rate 0 Objective Labs Result Diagrams: 09/11/21 04:10 09/11/21 14:25 Labs: Laboratory Results - last 24 hr 09/11/21 09/11/21 14:25 14:25 Sodium 135 L Potassium 4.0 Chloride 104 Carbon Dioxide 26 BUN 15 Creatinine 0.63 L Estimated GFR > 60.0 BUN/Creatinine Ratio 23.8 H Glucose 119 H Calcium 9.1 Phosphorus 2.7 Magnesium 2.1 [facility] Medical History Alcohol use disorder, severe, in early remission Alcoholism Cirrhosis Hypertension Major depression Surgical History H/O rhinoplasty History of fasciotomy 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 Family History (Updated 09/11/21 @ 00:56 by Jenna Kebede MD) Unknown Cancer Sister Alcohol dependence Mother Cardiac arrest Social History household members: none Smoking Status: Former smoker alcohol intake: current substance use type: does not use Discharge Assessment & Plan Assessment and Plan Assessment: The patient is a 66-year-old male with a history of alcohol dependence admitted to the hospital for acute alcohol withdrawal. 1. Alcohol withdrawal, suspected, mild ? Patient reports he continues to drink a 5th of vodka daily, with last drink on evening of September 09, 2021 ? He is ambivalent regarding his desire for recurrent inpatient detox, he does want to quit drinking ? CIWA activation has remained low throughout stay, with patient requesting to go home 2. Hypomagnesemia, likely EtOH-related ? Magnesium replenished, and patient on magnesium supplementation at home, too 3. Atrial fibrillation, with intermittent rapid ventricular response, likely EtOH-related ? Given his significant alcohol dependence, and frequent falls, agree with not anticoagulating him 4. Non-sustained ventricular tachycardia, likely hypomagnesemia related, resolved with Mg replenishment 5. Alcoholic hepatosteatosis, stable 6. Pancytopenia, likely due to bone marrow suppression from chronic EtOH consumption, stable? Discharge Plan Discharge Plan Patient Disposition: Home Discharge orders & Medications Prescriptions: Continued trazodone 100 mg tablet 100 mg PO BEDTIME PRN (Reason: Insomnia) Qty: 30 5RF Rx Instructions: Continue 100 mg by mouth at bedtime multivitamin [Daily Multi-Vitamin] Tablet 1 tab PO QAM 0RF vitamin B complex Tablet 1 tab PO DAILY 0RF cholecalciferol (vitamin D3) 25 mcg (1,000 unit) capsule 4,000 unit PO DAILY 0RF omeprazole 20 mg capsule,delayed release(DR/EC) 20 mg PO QAM 0RF tamsulosin [Flomax] 0.4 mg capsule 0.8 mg PO QPM Qty: 0 0RF naltrexone 50 mg tablet 50 mg PO DAILY Qty: 30 3RF testosterone cypionate 200 mg/mL oil 200 mg IM Q4W 0RF Label Comments: inject 1 milliliter intramuscularly every 2 weeks folic acid 1 mg Tablet 1 mg PO DAILY Qty: 120 0RF thiamine mononitrate (vit B1) 100 mg Tablet 100 mg PO DAILY Qty: 60 0RF melatonin 10 mg capsule 20 mg PO BEDTIME PRN (Reason: sleep) 0RF Bacid 1 billion cell- 250 mg tablet 1 tab PO DAILY 0RF magnesium 500 mg Tablet 500 mg PO DAILY 0RF sucralfate 1 gram tablet 1 g PO BID 0RF alprazolam 0.25 mg tablet 0.25 mg PO PRN PRN (Reason: Anxiety) 0RF methocarbamol 750 mg tablet 750 mg PO PRN PRN (Reason: Pain (Scale Score 1-3)) 0RF Follow up/Referrals: Maria Teresa Talley PA-C [Primary Care Provider] - Visit Report/Discharge Packet Stand Alone Forms: Naloxone Standing Order MSDO Discharge Data Primary Care Provider: Maria Teresa Talley Quality VTE Deep Vein Thrombosis/Pulmonary Embolism Present on Admission: No
--- NOTE | 2021-09-12 13:21 | PC.NURSE ---
1245: Discharge orders received. Discharge instructions reviewed with pt, no questions/concerns voiced at present. PIV and VS monitoring removed.
== END 2021-09-12 13:41 | disposition home or self-care (01) | DRG 897 ==
LOC: ED 22:08 → AC 22:44 → ICU 23:35
PROVIDERS: Emergency Medicine; Student in an Organized Health Care Education/Training Program; Admitting Provider Internal Medicine; Emergency Provider Emergency Medicine; PCP Student in an Organized Health Care Education/Training Program; Referring Provider Emergency Medicine; Visit Provider Internal Medicine
DX: F10.231 Alcohol dependence with withdrawal delirium (principal); I47.2 Ventricular tachycardia; D61.818 Other pancytopenia; K70.30 Alcoholic cirrhosis of liver without ascites; Y90.6 Blood alcohol level of 120-199 mg/100 ml; I48.91 Unspecified atrial fibrillation; E83.42 Hypomagnesemia; F32.A Depression, unspecified; Z20.822 Contact with and (suspected) exposure to COVID-19; Z87.891 Personal history of nicotine dependence
CPT/HCPCS: 36415; 80048; 80053; 80305; 80320; 83690; 83735; 84100; 84484; 85025; 87635; 87797; 93005; 96365; 96375; 96376; 97162; 99284; C9803; J1650; J2060; J2560; J3475

== ENCOUNTER 2021-09-14 08:11 | Inpatient (IN) | payer MEDICARE, OTHER, SELFPAY ==
[2021-09-10 23:44] VITALS: BMI 33.3
[2021-09-14] VITALS (19 sets, daily range): BP systolic 103–141; BP diastolic 55–76; PULSE 70–133; RESP 18–20; TEMP 36.5–37.8; O2SAT 92–99; BMI 35.5
--- NOTE | 2021-09-14 08:11 | ED_ITS ---
HPI - Abdominal Pain General Chief Complaint: Abdominal Pain Stated Complaint: ABD PAIN Time Seen by Provider: 09/14/21 08:12 Source: patient, EMS and old records reviewed Mode of arrival: EMS Limitations: no limitations History of Present Illness HPI narrative: This is a 66-year-old male with known alcohol use disorder, hypertension with prior paroxysmal atrial fibrillation. Patient arrives today with acute onset of upper abdominal pain epigastric right upper quadrant region that started at 3:30 a.m. in the morning approximately 5 hours ago. Patient states he started having nausea and vomiting at the same time. He denies any diarrhea or constipation. He denies any radiation of his pain elsewhere. He denies any chest pain or shortness of breath. No syncope or lightheadedness. Patient denies any urinary symptoms. He has been found to have cholelithiasis in the past on ultrasound. Patient was discharged several days ago after being admitted for delirium tremens, hypo magnesium, AFib and nonsustained V-tach likely related to his hypomagnesia. Patient denies any new medication changes. Patient was drinking sometimes a 5th of vodka daily. He states he has not had any alcohol since he was discharged several days ago. Related Data Home Medications Medication Instructions Recorded Confirmed tamsulosin 0.4 mg capsule (Flomax) 0.8 mg PO QPM #0 cap 06/23/19 09/11/21 cholecalciferol (vitamin D3) 25 4,000 unit PO DAILY cap 10/11/19 09/11/21 mcg (1,000 unit) capsule multivitamin (Daily Multi-Vitamin) 1 tab PO QAM 10/11/19 09/11/21 omeprazole 20 mg capsule,delayed 20 mg PO QAM 10/11/19 09/11/21 release vitamin B complex 1 tab PO DAILY 10/11/19 09/11/21 testosterone cypionate 200 mg/mL 200 mg IM Q4W 01/03/21 09/11/21 intramuscular oil melatonin 10 mg capsule 20 mg PO BEDTIME PRN 07/09/21 09/11/21 L.acidophilus-L.bulgar-B.bifid-S.thermoph 1 tab PO DAILY 09/11/21 09/11/21 1 billion cell-250 mg tablet (Bacid) alprazolam 0.25 mg tablet 0.25 mg PO PRN PRN 09/11/21 09/11/21 magnesium 500 mg tablet 500 mg PO DAILY 09/11/21 09/11/21 methocarbamol 750 mg tablet 750 mg PO PRN PRN 09/11/21 09/11/21 sucralfate 1 gram tablet 1 g PO BID 09/11/21 09/11/21 Previous Rx's Medication Instructions Recorded folic acid 1 mg tablet 1 mg PO DAILY #120 tab 05/12/21 thiamine mononitrate (vit B1) 100 100 mg PO DAILY #60 tab 05/12/21 mg tablet naltrexone 50 mg tablet 50 mg PO DAILY #30 tab 08/12/21 trazodone 100 mg tablet 100 mg PO BEDTIME PRN #30 tab 08/15/21 Allergies Allergy/AdvReac Type Severity Reaction Status Date / Time hydrochlorothiazide Allergy Severe Anaphylaxis Verified 09/10/21 11:43 [HYDROCHLOROTHIAZIDE] lisinopril [LISINOPRIL] Allergy Severe Anaphylaxis Verified 09/10/21 11:43 Review of Systems Review of Systems ROS Unobtainable: All systems reviewed & are unremarkable except as noted in HPI and below 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 Family History (Updated 09/11/21 @ 00:56 by Jenna Kebede MD) Unknown Cancer Sister Alcohol dependence Mother Cardiac arrest Social History household members: none Smoking Status: Former smoker alcohol intake: current substance use type: does not use Exam Narrative Exam Narrative: GENERAL: Alert and oriented x three, pale elderly appearing male in mild distress. HEENT: Head normocephalic, atraumatic, EOMI, pupils reactive, face symmetric, moist mucous membranes NECK: Supple, full range of motion CARDIOVASCULAR: Regular rate and rhythm without murmurs, rubs or gallops. RESPIRATORY: Breath sounds equal bilaterally, no wheezes rales or rhonchi. ABDOMEN: Soft, nontender. Normoactive bowel sounds all 4 quadrants. No guardin g or rebound, rigidity, no mass : No CVA tenderness EXTREMITIES: Normal range of motion, no clubbing or edema. Neurovascularly intact NEUROLOGICAL: Cranial nerves II through XII grossly intact. Moving all extremities. Mild tremor. SKIN: Warm, dry, no petechiae, no rashes or lesions. Initial Vital Signs Initial Vital Signs: Vital Signs Pulse Rate 73 09/14/21 08:18 Pulse Oximetry 99 09/14/21 08:18 Scores GCS [place] coma scale eye opening: Spontaneous [place] coma scale verbal response: Orientated Chi coma scale motor response: Obey commands Chi coma scale total score: 15 Course Orders Ordered: ED Orders 09/14/21 08:16 EKG-12 Lead Stat 09/14/21 08:18 US abdomen limited Stat XR acute abdomen series Stat 09/14/21 08:41 Complete Blood Count AUTO DIFF Stat Comprehensive Metabolic Panel Stat ETOH [Ethanol (ETOH)] Stat Lipase Stat Magnesium Stat Troponin & CK Cardiac Panel Stat 09/14/21 09:30 MRCP [MR abdomen wo con] Stat 09/14/21 10:29 Covid-19 + FLU A/B + RSV - PCR Stat 09/14/21 11:16 Ictotest Urine Stat Urinalysis and Microscopic Stat Urine Culture Stat Urine Drug Screen, Rapid Stat Discontinued Medications Sodium Chloride (Normal Saline 0.9%) 1,000 mls @ 1,000 mls/hr IV BOLUS ONE Stop: 09/14/21 09:15 Last Infusion: 09/14/21 12:32 Dose: 0 mls/hr Documented by: Admin: 09/14/21 08:55 Dose: 1,000 mls/hr Documented by: JADEN Ketorolac Tromethamine (Ketorolac 30 Mg/Ml Vial) 15 mg IV NOW ONE Stop: 09/14/21 08:55 Last Admin: 09/14/21 08:59 Dose: 15 mg Documented by: JADEN Metoclopramide HCl (Metoclopramide 10 Mg/2 Ml Inj) 10 mg IV NOW ONE Stop: 09/14/21 09:33 Last Admin: 09/14/21 09:43 Dose: 10 mg Documented by: JADEN Morphine Sulfate (Morphine 4 Mg/Ml Inj) 4 mg IV NOW ONE Stop: 09/14/21 11:17 Last Admin: 09/14/21 11:25 Dose: 4 mg Documented by: JADEN Morphine Sulfate (Morphine 4 Mg/Ml Inj) 4 mg IV NOW ONE Stop: 09/14/21 13:32 Last Admin: 09/14/21 14:00 Dose: 4 mg Documented by: BRENDA Ondansetron HCl (Ondansetron 4 Mg/2 Ml Inj) 4 mg IV NOW ONE Stop: 09/14/21 08:17 Last Admin: 09/14/21 08:54 Dose: 4 mg Documented by: JADEN Ondansetron HCl (Ondansetron 4 Mg/2 Ml Inj) 4 mg IV NOW ONE Stop: 09/14/21 11:17 Last Admin: 09/14/21 11:25 Dose: 4 mg Documented by: JADEN Pantoprazole Sodium (Pantoprazole 40 Mg Vial) 40 mg IV NOW ONE Stop: 09/14/21 08:17 Last Admin: 09/14/21 08:54 Dose: 40 mg Documented by: JADEN Reevaluation(s) Reevaluation #1: Patient had 1 episode of emesis, was given Reglan. Discussed would like to get MRCP patient states he has had MRIs before without issue. Reevaluation #2: On recheck patient has continued to have pain that has reoccurred even after additional pain medication 1 additional episode of bile like emesis. Patient's MRCP and findings were reviewed. Consultations Consultation #1: Dr. Zhu, discussed pancreatitis, cholelithiasis but no clear signs of cholec ystitis. Patient had MRCP because he had enlarged common bile duct but there is no evidence of choledocholithiasis or focal mass lesion today they discussed consider follow-up ERCP to exclude tiny ampullary nonvisualized lesion or stone. Dr. Zhu would like General surgery input prior to acceptance if this may change recommendations if patient should be transferred for ERCP versus monitoring here. Time: 11:26 Consultation #2: Dr. Figueroa, recommends consultation with Gastroenterology. If they recommend ERCP we would plan for transfer as we don't have availability. Time: 11:35 Consultation #3: Dr. Conde, gastroenterology at [facility]. She and I reviewed patient's findings patient possibily does need ERCP but she would have to discuss with her ERCP provider which they do not have available this weekend. Time: 11:56 Additional Consultation(s): Dr. Alcantar, gastroenterology at [facility]. Will talk with her partners to see if patient would be ERCP candidate and if they would have available. They cannot transfer at this time but might be available for a ship in return with a scheduled ERCP time if possible. Dr. Alcantar [phone] (callback 2nd time). Spoke with her partner Dr. Kessler who performs ERCPs. At this point would not recommend emergent ERCP but likely allow patient's pancreatitis to resolve or improve and have very near future urg ent outpatient ERCP. If patient appears to be worsening developing cholangitis, fevers or other changes during his hospital stay they would ask to be re- contacted for possible transfer for emergent ERCP. Patient does not appear to have any symptoms of cholangitis at this time no antibiotics are recommended currently. Dr. Zhu 1400. Happy to accept patient we did discuss Gastroenterology's re commendations. Also discussed that there was a potential for ship and return possibly tomorrow or the following day for procedure if absolutely necessary and no bed availability but at this time gastroenterology did not feel like this was necessary. They also deferred any antibiotics at this time. Vital Signs Vital signs: Vital Signs - 8 hr 09/14/21 08:18 09/14/21 08:26 09/14/21 08:30 Temperature 97.8 F Pulse Rate 73 74 74 Respiratory Rate 18 Blood Pressure 141/64 H Pulse Oximetry 99 98 96 09/14/21 08:31 09/14/21 08:35 09/14/21 10:28 Temperature Pulse Rate 73 71 79 Respiratory Rate Blood Pressure 103/55 L 139/71 Pulse Oximetry 97 97 99 09/14/21 10:30 09/14/21 11:00 09/14/21 11:30 Temperature Pulse Rate 81 99 H 83 Respiratory Rate Blood Pressure Pulse Oximetry 98 98 95 09/14/21 12:00 09/14/21 12:30 09/14/21 13:00 Temperature Pulse Rate 87 81 85 Respiratory Rate Blood Pressure Pulse Oximetry 93 92 93 09/14/21 13:30 09/14/21 14:00 Temperature Pulse Rate 85 82 Respiratory Rate Blood Pressure 137/76 Pulse Oximetry 94 94 MDM - Abdominal Pain Lab Data Result diagrams: 09/14/21 08:41 09/14/21 08:41 Labs: Lab Results 09/14/21 09/14/21 09/14/21 Range/Units 08:41 08:41 08:41 WBC 4.7 (4.5-11.0) X10^3/uL RBC 4.04 L (4.5-5.9) X10^6/uL Hgb 12.4 L (13.5-17.5) g/dL Hct 37.4 L (41-53) % MCV 92.6 D (80-100) fL MCH 30.6 (26-34) PG MCHC 33.1 (30-36) % RDW 18.9 H (11.6-14.8) % Plt Count 89 L (150-400) X10^3/uL Neut % (Auto) 86.1 H (50-75) % Lymph % (Auto) 12.1 L (25-40) % [place] % (Auto) 0.7 L (3-14) % Eos % (Auto) 0.5 L (2-4) % Baso % (Auto) 0.6 (0-2) % Neut # (Auto) 4100 (8777-6546) /uL Lymph # (Auto) 600 L (9236-8493) /uL [place] # (Auto) 0 (0-900) /uL Eos # (Auto) 0 (0-450) /uL Baso # (Auto) 0 (0-100) /uL Sodium 137 (137-145) mmol/L Potassium 3.9 (3.4-5.1) mmol/L Chloride 105 (98-107) mmol/L Carbon Dioxide 23 (22-32) mmol/L BUN 23 H (9-20) mg/dL Creatinine 0.93 (0.66-1.25) mg/dL Estimated GFR > 60.0 (>60) mL/min BUN/Creatinine Ratio 24.7 H (6-22) Glucose 183 H (80-110) mg/dL Calcium 9.4 (8.4-10.2) mg/dL Total Bilirubin 2.8 H (0.2-1.3) mg/dL AST 182 H (17-59) IU/L ALT 62 H (<50) IU/L Alkaline Phosphatase 112 (38-126) U/L Total Creatine Kinase 37 L (55-170) U/L CK-MB (CK-2) TNP CK-MB (CK-2) Rel Index TNP Troponin I < 0.012 (0.01-0.034) ng/mL Total Protein 7.0 (6.3-8.2) g/dL Albumin 3.4 L (3.5-5.0) g/dL Globulin 3.6 (1.7-4.1) g/dL Albumin/Globulin Ratio 0.9 L (1.0-2.8) Lipase 4946 H D (23-300) U/L Urine Color Urine Appearance Urine pH (4.5-8.0) Ur Specific [place] (1.000-1.035) Urine Protein (Negative) Urine Glucose (UA) (Negative) g/dL Urine Ketones (NEGATIVE) Urine Occult Blood (Negative) Urine Nitrate (Negative) Urine Bilirubin (NEGATIVE) Ur Bilirubin Confirm (Negative) Urine Urobilinogen (0.2) E.U./dL Ur Leukocyte Esterase (NEGATIVE) Urine RBC (0-5/HPF) Urine WBC (0-5/HPF) Ur Squamous Epith Cells (0-5/HPF) Amorphous Sediment Urine Bacteria (None) Urine Mucus (Negative) Ur Culture Indicated? U Opiates 300ng/mL cut (Negative) Ur Oxycodone Screen (Negative) Urine Methadone Screen (Negative) Ur Barbiturates Screen (Negative) U Tricyclic Antidepress (Negative) Ur Phencyclidine Scrn (Negative) Ur Amphetamines Screen (Negative) U Methamphetamines Scrn (Negative) Ur MDMA Scrn (Ecstasy) (Negative) U Benzodiazepines Scrn (Negative) Urine Cocaine Screen (Negative) U Marijuana (THC) Screen (Negative) Ethyl Alcohol < 10 ( - 10) mg/dL SARS-CoV-2 (PCR) (Negative) Influenza A (RT-PCR) (NEGATIVE) Influenza B (RT-PCR) (NEGATIVE) RSV (PCR) (Negative) 09/14/21 09/14/21 09/14/21 Range/Units 10:29 11:16 11:16 WBC (4.5-11.0) X10^3/uL RBC (4.5-5.9) X10^6/uL Hgb (13.5-17.5) g/dL Hct (41-53) % MCV (80-100) fL MCH (26-34) PG MCHC (30-36) % RDW (11.6-14.8) % Plt Count (150-400) X10^3/uL Neut % (Auto) (50-75) % Lymph % (Auto) (25-40) % [place] % (Auto) (3-14) % Eos % (Auto) (2-4) % Baso % (Auto) (0-2) % Neut # (Auto) (7799-6036) /uL Lymph # (Auto) (8749-0746) /uL [place] # (Auto) (0-900) /uL Eos # (Auto) (0-450) /uL Baso # (Auto) (0-100) /uL Sodium (137-145) mmol/L Potassium (3.4-5.1) mmol/L Chloride (98-107) mmol/L Carbon Dioxide (22-32) mmol/L BUN (9-20) mg/dL Creatinine (0.66-1.25) mg/dL Estimated GFR (>60) mL/min BUN/Creatinine Ratio (6-22) Glucose (80-110) mg/dL Calcium (8.4-10.2) mg/dL Total Bilirubin (0.2-1.3) mg/dL AST (17-59) IU/L ALT (<50) IU/L Alkaline Phosphatase (38-126) U/L Total Creatine Kinase (55-170) U/L CK-MB (CK-2) CK-MB (CK-2) Rel Index Troponin I (0.01-0.034) ng/mL Total Protein (6.3-8.2) g/dL Albumin (3.5-5.0) g/dL Globulin (1.7-4.1) g/dL Albumin/Globulin Ratio (1.0-2.8) Lipase (23-300) U/L Urine Color [place] Urine Appearance Clear Urine pH 5.0 (4.5-8.0) Ur Specific [place] 1.025 (1.000-1.035) Urine Protein Trace H (Negative) Urine Glucose (UA) Trace H (Negative) g/dL Urine Ketones 1+ H (NEGATIVE) Urine Occult Blood Trace-intact (Negative) Urine Nitrate Negative (Negative) Urine Bilirubin 2+ H (NEGATIVE) Ur Bilirubin Confirm Positive H (Negative) Urine Urobilinogen 4.0 H (0.2) E.U./dL Ur Leukocyte Esterase Trace H (NEGATIVE) Urine RBC 1-5/hpf (0-5/HPF) Urine WBC 1-5/hpf (0-5/HPF) Ur Squamous Epith Cells 1-5 /hpf (0-5/HPF) Amorphous Sediment 3+ Urine Bacteria None seen (None) Urine Mucus 2+ H (Negative) Ur Culture Indicated? Specimen cultured U Opiates 300ng/mL cut Negative (Negative) Ur Oxycodone Screen Negative (Negative) Urine Methadone Screen Negative (Negative) Ur Barbiturates Screen Positive H (Negative) U Tricyclic Antidepress Positive H (Negative) Ur Phencyclidine Scrn Negative (Negative) Ur Amphetamines Screen Negative (Negative) U Methamphetamines Scrn Negative (Negative) Ur MDMA Scrn (Ecstasy) Negative (Negative) U Benzodiazepines Scrn Positive H (Negative) Urine Cocaine Screen Negative (Negative) U Marijuana (THC) Screen Negative (Negative) Ethyl Alcohol ( - 10) mg/dL SARS-CoV-2 (PCR) Negative (Negative) Influenza A (RT-PCR) Flu a negative (NEGATIVE) Influenza B (RT-PCR) Flu b negative (NEGATIVE) RSV (PCR) Negative (Negative) Imaging Data Abdominal x-ray: Radiologist's Impression: Launch?[place] [address] XRay Report Signed Patient: Zacarias Webster MR#: [id number] : 1955 Acct:[id number] Age/Sex: 66 / M Date of Service: 09/14/21 Loc: ED Accession Number: [id number] ?? Procedure: XR acute abdomen series Ordering Provider: Paola Ramos D.O. PROCEDURE:? XR ACUTE ABDOMEN SERIES ? INDICATIONS:? upper abd pain, vomiting ? TECHNIQUE:? One view chest and two views of the abdomen were acquired.? ? COMPARISON:? None. ? FINDINGS:? ? Surgical changes and devices:? None.? ? Chest:? Lungs are clear.? Heart size is normal.? No pleural effusions.? No pneumoperitoneum.? ? Abdomen:? Bowel gas pattern is normal.? No suspicious calcifications.? Visualized solid organ contours appear normal.? ? Bones:? No suspicious bony lesions.? Degenerative changes noted in the mid lumbar spine.? Several surgical clips noted in the pelvis/right groin. ? IMPRESSION:? No acute cardiopulmonary findings.? Nonspecific bowel gas pattern. ? ? ? Approved by: Ronnie Mott M.D. on 09/14/2021 at 8:34? US - abdomen: Radiologist's Impression: [address] [address] Ultrasound Report Signed Patient: Zacarias Webster MR#: [id number] : 1955 Acct:[id number] Age/Sex: 66 / M Date of Service: 09/14/21 Loc: ED Accession Number: [id number] ?? Procedure: US abdomen limited Ordering Provider: Paola Ramos D.O. PROCEDURE: US ABDOMEN LIMITED ? INDICATIONS:? UPPER ABDOMEN PAIN, VOMITING ? TECHNIQUE:? Real-time focused scanning was performed of the abdomen, with image documentation.? ? COMPARISON:? [facility], , US ABDOMEN LIMITED, 03/24/2021, 22:50. ? FINDINGS: ? Liver:? Hepatic parenchyma shows diffuse increased echogenicity consistent with fatty infiltration. ? Gallbladder:? Biliary sludge and cholelithiasis present without gallbladder wall thickening, pericholecystic fluid or Rothman sign ? Common Bile Duct:? 11.4 mm. ? Pancreas:? Unremarkable as visualized ? IMPRESSION:? ? 1. Cholelithiasis and dilated CBD without evidence of acute cholecystitis.? Consider follow-up MRCP to evaluate for distal CBD stone. ? 2. Mild hepatic fatty infiltration ? ? ? Approved by: Ronnie Mott M.D. on 09/14/2021 at 8:37 MRCP: Radiologist's Impression: Launch?Image [address] [address] Magnetic Resonance Report Signed Patient: Zacarias Webster MR#: [id number] : 1955 Acct:[id number] Age/Sex: 66 / M Date of Service: 09/14/21 Loc: ED Accession Number: [id number] ?? Procedure: MR abdomen wo con Ordering Provider: Paola Ramos D.O. PROCEDURE:? MR ABDOMEN WO CON ? INDICATIONS:? abd pain, enlarged CBD, pancreatitis ? TECHNIQUE:? Coronal HASTE through the abdomen, axial 2-D FLASH in- and [id number], and breath-hold T2 FSE with fat saturation through the biliary system and pancreas.? Oblique coronal and axial thin-slice HASTE, radial thick-slab HASTE centered on the extrahepatic bile ducts.? ? ? Intravenous secretin:? Not requested.? ? COMPARISON:? None. ? FINDINGS:? Image quality:? Excellent.? ? Pancreas and biliary system:? Extrahepatic CBD is dilated up to 1.4 cm without intraluminal filling defect or visualized mass lesion.? Calculi are noted layering dependently in the distended gallbladder.? Pancreas and pancreatic duct unremarkable. ? Other solid organs:? Liver is normal in size.? Spleen is normal in size.? No adrenal nodules.? Both kidneys are normal in size, without hydronephrosis.? Several simple renal cortical cysts present without hydronephrosis.? Hepatic fatty infiltration noted.? Small subcentimeter left hepatic cyst noted as well. ? Nodes and vessels:? No retroperitoneal or mesenteric adenopathy by size criteria.? Aorta and inferior vena cava are normal in size.? ? Bowel and peritoneum:? Unenhanced bowel loops are normal in caliber.? No free fluid.? Moderate hiatal hernia ? Lung bases:? No basal pleural effusions.? Heart size is normal.? ? Bones and soft tissues:? No ventral hernias.? Bone marrow is of normal overall signal.? ? IMPRESSION:? ? 1. Distal CBD dilation up to 1.4 cm without evidence of choledocholithiasis or focal mass lesion.? Consider follow-up ERCP to exclude tiny ampullary nonvisualized lesion or stone. ? 2. Cholelithiasis and gallbladder distention without evidence of acute cholecystitis.? ? 3. Incidental hepatorenal cysts, hepatic fatty infiltration, moderate hiatal hernia ? ? Approved by: Ronnie Mott M.D. on 09/14/2021 at 10:12? ECG Data Attestation: I personally reviewed and interpreted this ECG as follows: Prior ECG tracings: available for review Interpretation: Sinus rhythm with first-degree AV block. Rate of 70 2p are 218 QRS of 90 QTC 477. Nonspecific T-wave change. Patient has prior EKG from 09/10/2021 with nonspecific change in comparison MDM Narrative Medical decision making narrative: This is a 66-year-old male who comes in with complaint of sudden onset abdominal pain and vomiting overnight. Patient has known history of alcoholic cirrhosis, alcohol withdrawal and was just recently discharged several days ago. Patient states he has not had any alcohol since his discharge. His labs do show an elevated lipase, bilirubin an ultrasound was obtained which shows an enlarged common bile duct with cholelithiasis but no thickening or clear signs of cholecystitis physically on exam or imaging. MRCP was obtained shows enlarged common bile duct but no clear focal mass or stone. Patient has persistent thrombocytopenia, stable anemia, normal electrolytes with slightly elevated BUN. LFTs are elevated, bilirubin higher than typically but AST ALT are consistent with prior labs. Patient has required several doses of antinausea medication. Discussed with hospitalist as there was some concern that patient may need ERCP, discussed with General surgery followed by gastroenterology. At this time Gastroenterology and ERCP at [facility] do not feel patient is appropriate for emergent transfer but would benefit from urgent outpatient follow-up an ERCP and they will reach out to the patient and did currently treat patient has a pancreatitis. If patient was rapidly worsening develops fevers they would ask that we recontact them to adjust the current plan. Discussed with our hospitalist who feels comfortable with this plan. Discharge Plan Departure Patient Disposition: Admitted As Inpatient Clinical Impression: Pancreatitis, Cholelithiasis, Vomiting Admit Date/Time: 09/14/21 14:16 Admit Provider: Chato Zhu
--- NOTE | 2021-09-14 08:18 | DI.RAD.S_ITS ---
PROCEDURE: XR ACUTE ABDOMEN SERIES INDICATIONS: upper abd pain, vomiting TECHNIQUE: One view chest and two views of the abdomen were acquired. COMPARISON: None. FINDINGS: Surgical changes and devices: None. Chest: Lungs are clear. Heart size is normal. No pleural effusions. No pneumoperitoneum. Abdomen: Bowel gas pattern is normal. No suspicious calcifications. Visualized solid organ contours appear normal. Bones: No suspicious bony lesions. Degenerative changes noted in the mid lumbar spine. Several surgical clips noted in the pelvis/right groin. IMPRESSION: No acute cardiopulmonary findings. Nonspecific bowel gas pattern. Approved by: Ronnie Mott M.D. on 09/14/2021 at 8:34
--- NOTE | 2021-09-14 08:18 | DI.US.S_ITS ---
PROCEDURE: US ABDOMEN LIMITED INDICATIONS: UPPER ABDOMEN PAIN, VOMITING TECHNIQUE: Real-time focused scanning was performed of the abdomen, with image documentation. COMPARISON: [facility], , US ABDOMEN LIMITED, 03/24/2021, 22:50. FINDINGS: Liver: Hepatic parenchyma shows diffuse increased echogenicity consistent with fatty infiltration. Gallbladder: Biliary sludge and cholelithiasis present without gallbladder wall thickening, pericholecystic fluid or Rothman sign Common Bile Duct: 11.4 mm. Pancreas: Unremarkable as visualized IMPRESSION: 1. Cholelithiasis and dilated CBD without evidence of acute cholecystitis. Consider follow-up MRCP to evaluate for distal CBD stone. 2. Mild hepatic fatty infiltration Approved by: Ronnie Mott M.D. on 09/14/2021 at 8:37
[2021-09-14 08:54] LABS: Add Manual Diff / Slide Review NO; Basophils Absolute Auto 0 /uL (0-100); Basophils Percent Auto 0.6 % (0-2); Eosinophils Absolute Auto 0 /uL (0-450); Eosinophils Percent Auto 0.5 % (2-4); Hematocrit 37.4 % (41-53); Hemoglobin 12.4 g/dL (13.5-17.5); Lymphocytes Absolute Auto 600 /uL (1100-4500); Lymphocytes Percent Auto 12.1 % (25-40); Mean Corpuscular HGB Conc 33.1 % (30-36); Mean Corpuscular Hemoglobin 30.6 PG (26-34); Mean Corpuscular Volume 92.6 fL (80-100); Monocytes Absolute Auto 0 /uL (0-900); Monocytes Percent Auto 0.7 % (3-14); Neutrophils Absolute Auto 4100 /uL (1500-7000); Neutrophils Percent Auto 86.1 % (50-75); Platelet Count 89 X10^3/uL (150-400); Red Blood Cell Count 4.04 X10^6/uL (4.5-5.9); Red Cell Distribution Width 18.9 % (11.6-14.8); White Blood Cell Count 4.7 X10^3/uL (4.5-11.0)
[2021-09-14] MEDS: ONDANSETRON 4 MG/2 ML INJ IV ×2 (08:54→11:25)
[2021-09-14] MEDS: PANTOPRAZOLE 40 MG VIAL IV (08:54)
[2021-09-14] MEDS: SODIUM CHLORIDE 0.9% 1,000 ML 1000 ML IV (08:55)
[2021-09-14] MEDS: KETOROLAC 30 MG/ML VIAL 15 MG IV (08:59)
[2021-09-14 09:01] LABS: Alanine Aminotransferase 62 IU/L (<50); Albumin 3.4 g/dL (3.5-5.0); Albumin Globulin Ratio 0.9 (1.0-2.8); Alkaline Phosphatase 112 U/L (38-126); Aspartate Aminotransferase 182 IU/L (17-59); BUN Creatinine Ratio 24.7 (6-22); Bilirubin Total 2.8 mg/dL (0.2-1.3); Blood Urea Nitrogen 23 mg/dL (9-20); Calcium 9.4 mg/dL (8.4-10.2); Carbon Dioxide 23 mmol/L (22-32); Chloride 105 mmol/L (98-107); Estimated Glomerular Filt Rate > 60.0 mL/min (>60); Globulin 3.6 g/dL (1.7-4.1); Glucose 183 mg/dL (80-110); HEMOLYSIS < 15 (0-50); Potassium 3.9 mmol/L (3.4-5.1); Sodium 137 mmol/L (137-145)
[2021-09-14 09:03] LABS: Creatine Kinase 37 U/L (55-170); Ethanol (ETOH) < 10 mg/dL
[2021-09-14 09:15] LABS: Troponin I < 0.012 ng/mL (0.01-0.034)
[2021-09-14 09:18] LABS: Lipase 4946 U/L (23-300)
--- NOTE | 2021-09-14 09:30 | DI.MRI.S_ITS ---
PROCEDURE: MR ABDOMEN WO CON INDICATIONS: abd pain, enlarged CBD, pancreatitis TECHNIQUE: Coronal HASTE through the abdomen, axial 2-D FLASH in- and [id number], and breath-hold T2 FSE with fat saturation through the biliary system and pancreas. Oblique coronal and axial thin-slice HASTE, radial thick-slab HASTE centered on the extrahepatic bile ducts. Intravenous secretin: Not requested. COMPARISON: None. FINDINGS: Image quality: Excellent. Pancreas and biliary system: Extrahepatic CBD is dilated up to 1.4 cm without intraluminal filling defect or visualized mass lesion. Calculi are noted layering dependently in the distended gallbladder. Pancreas and pancreatic duct unremarkable. Other solid organs: Liver is normal in size. Spleen is normal in size. No adrenal nodules. Both kidneys are normal in size, without hydronephrosis. Several simple renal cortical cysts present without hydronephrosis. Hepatic fatty infiltration noted. Small subcentimeter left hepatic cyst noted as well. Nodes and vessels: No retroperitoneal or mesenteric adenopathy by size criteria. Aorta and inferior vena cava are normal in size. Bowel and peritoneum: Unenhanced bowel loops are normal in caliber. No free fluid. Moderate hiatal hernia Lung bases: No basal pleural effusions. Heart size is normal. Bones and soft tissues: No ventral hernias. Bone marrow is of normal overall signal. IMPRESSION: 1. Distal CBD dilation up to 1.4 cm without evidence of choledocholithiasis or focal mass lesion. Consider follow-up ERCP to exclude tiny ampullary nonvisualized lesion or stone. 2. Cholelithiasis and gallbladder distention without evidence of acute cholecystitis. 3. Incidental hepatorenal cysts, hepatic fatty infiltration, moderate hiatal hernia Approved by: Ronnie Mott M.D. on 09/14/2021 at 10:12
[2021-09-14] MEDS: METOCLOPRAMIDE 10 MG/2 ML INJ IV (09:43)
[2021-09-14 11:10] LABS: Influenza A - CEPHEID Flu A NEGATIVE (NEGATIVE); Influenza B - CEPHEID Flu B NEGATIVE (NEGATIVE); Respiratory Syncytial Virus Negative (Negative)
[2021-09-14 11:19] LABS: Appearance Urine UA CLEAR; Bilirubin Urine UA 2+ (NEGATIVE); Color Urine UA ORANGE; Glucose Urine UA TRACE g/dL (Negative); Ketones Urine UA 1+ (NEGATIVE); Leukocyte Esterase Urine UA TRACE (NEGATIVE); Nitrite Urine UA NEGATIVE (Negative); Occult Blood Urine UA TRACE-INTACT (Negative); Protein Urine UA TRACE (Negative); Specific Gravity Urine UA 1.025 (1.000-1.035)
[2021-09-14 11:23] LABS: COVID-19 CEPHEID PCR (VTM/NP) Negative (Negative)
[2021-09-14 11:25] LABS: UR Morphine/Opiate cutoff 300 Negative (Negative); Ur Creatinine Normal (Normal); Ur Specific Gravity Normal (Normal); Urine Amphetamines Negative (Negative); Urine Barbiturates Positive (Negative); Urine Benzodiazepines Positive (Negative); Urine Cocaine Negative (Negative); Urine MDMA Negative (Negative); Urine Methadone Negative (Negative); Urine Methamphetamines Negative (Negative); Urine Oxycodone Negative (Negative); Urine Phencyclidine Negative (Negative); Urine Tetrahydrocannabinol Negative (Negative); Urine Tricyclic Antidepressant Positive (Negative); Urine pH Normal (Normal)
[2021-09-14] MEDS: MORPHINE 4 MG/ML INJ IV ×2 (11:25→14:00)
[2021-09-14 11:30] LABS: Ictotest Urine Positive (Negative); RBC Urine 1-5/HPF (0-5/HPF); Squamous Epithelial Cell Urine 1-5 /HPF (0-5/HPF); WBC Urine 1-5/HPF (0-5/HPF)
[2021-09-14 11:31] LABS: Amorphous Sediment Urine 3+
[2021-09-14 11:38] LABS: Bacteria Urine None Seen; Culture Indicated Urine Specimen Cultured; Mucus Urine 2+ (Negative)
[2021-09-14 14:41] LABS: Magnesium 1.2 mg/dL (1.6-2.3)
--- NOTE | 2021-09-14 14:51 | PC.NURSE ---
Day shift: Pt on unit from ED at approx 1430. Use of slider board to get in bed. Pt very weak. Pt c/o upper ABD pain of 8/[address] Zhu in room at this time (1445). VS WNL. RA 95%. Pt with tired and flat affect on admit but he has been kind, calm, and cooperative. Pt asleep (1520). On Tele and PROBATION AGENT aware. Tolerating calf SCD's. Oreinted to room and call light. Call light in reach. Clear liquid diet and has tolerated 2 big sips of water. Approx 30mls. IV fluids and Mag rider going per MD orders. High fall risk for now.
--- NOTE | 2021-09-14 15:02 | PM.HP.1 ---
History of Present Illness History of Present Illness Date Patient Seen: 09/14/21 Time Patient Seen: 14:30 Chief complaint: ABD PAIN Narrative: Patient is 66-year-old male with history of ETOH dependency, cirrhosis, paroxysmal atrial fibrillation, hypo magnesemia who presents with acute abdominal pain. He was just discharged from here a few days ago on September 12 after admission for alcohol withdrawal. He states he has not had any alcohol use since then. This morning around 3:30 a.m. he got woken up with severe excruciating upper abdominal pain accompanied by severe nausea and vomiting. He denies fevers or chills. Evaluation in the emergency department showed elevated lipase of 4946, bilirubin 2.8 which is slightly above baseline, elevated LFTs slightly above baseline. Magnesium was low at 1.2. His creatinine was normal at 0.93. Chest x-ray and abdominal x-rays were normal. Abdominal ultrasound showed cholelithiasis without evidence of cholecystitis. Also showed a dilated common bile duct without visible stone. MRCP showed distal common bile duct dilation up to 1.4 cm without choledocholithiasis or focal mass lesion. Patient's symptoms were initially managed with IV analgesics, Zofran, Reglan and IV fluid bolus. ER physician contacted Dr. Ortiz CAZARES on-call at [facility] to review abdominal ultrasound and MRCP findings showing dilated common bile duct with concern obstructing stone or lesion in the ampullary. Case was apparently discussed with Dr. Kessler who is the ERCP specialist and they considered transfer to their hospital for inpatient ERCP but ultimately decided to have patient stay here for conservative management and they will arrange for ERCP to be done as outpatient in the near future. However patient would need more urgent evaluation if develops fever or sign of cholangitis. 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 Family & Social History Family History (Updated 09/11/21 @ 00:56 by Jenna Kebede MD) Unknown Cancer Sister Alcohol dependence Mother Cardiac arrest Social History: household members none Safety & Behavioral: Feels Safe in Current Yes Environment Been Physically Hurt or No Threatened By a Person Tobacco & Substance use: Smoking Status Former smoker alcohol intake current alcohol intake frequency 3 or more drinks per day Substance Use Type does not use Meds Home Medications and Allergies Home Medications Medication Instructions Recorded Confirmed Type tamsulosin 0.4 mg capsule (Flomax) 0.8 mg PO QPM #0 cap 06/23/19 09/11/21 History cholecalciferol (vitamin D3) 25 4,000 unit PO DAILY cap 10/11/19 09/11/21 History mcg (1,000 unit) capsule multivitamin (Daily Multi-Vitamin) 1 tab PO QAM 10/11/19 09/11/21 History omeprazole 20 mg capsule,delayed 20 mg PO QAM 10/11/19 09/11/21 History release vitamin B complex 1 tab PO DAILY 10/11/19 09/11/21 History testosterone cypionate 200 mg/mL 200 mg IM Q4W 01/03/21 09/11/21 History intramuscular oil folic acid 1 mg tablet 1 mg PO DAILY #120 tab 05/12/21 09/11/21 Rx thiamine mononitrate (vit B1) 100 100 mg PO DAILY #60 tab 05/12/21 09/11/21 Rx mg tablet melatonin 10 mg capsule 20 mg PO BEDTIME PRN 07/09/21 09/11/21 History naltrexone 50 mg tablet 50 mg PO DAILY #30 tab 08/12/21 09/11/21 Rx trazodone 100 mg tablet 100 mg PO BEDTIME PRN #30 tab 08/15/21 09/11/21 Rx L.acidophilus-L.bulgar-B.bifid-S.thermoph 1 tab PO DAILY 09/11/21 09/11/21 History 1 billion cell-250 mg tablet (Bacid) alprazolam 0.25 mg tablet 0.25 mg PO PRN PRN 09/11/21 09/11/21 History magnesium 500 mg tablet 500 mg PO DAILY 09/11/21 09/11/21 History methocarbamol 750 mg tablet 750 mg PO PRN PRN 09/11/21 09/11/21 History sucralfate 1 gram tablet 1 g PO BID 09/11/21 09/11/21 History Allergies Allergy/AdvReac Type Severity Reaction Status Date / Time hydrochlorothiazide Allergy Severe Anaphylaxis Verified 09/10/21 11:43 [HYDROCHLOROTHIAZIDE] lisinopril [LISINOPRIL] Allergy Severe Anaphylaxis Verified 09/10/21 11:43 Review of Systems Review of Systems Narrative: Patient denies chest pain, shortness of breath, cough, fevers or chills, melena or hematochezia, urinary symptoms. Exam Vital Signs (past 8 hours): - 09/14/21 08:18 09/14/21 08:26 09/14/21 08:30 Temperature 97.8 F Pulse Rate 73 74 74 Respiratory Rate 18 Blood Pressure 141/64 H Pulse Oximetry 99 98 96 09/14/21 08:31 09/14/21 08:35 09/14/21 10:28 Temperature Pulse Rate 73 71 79 Respiratory Rate Blood Pressure 103/55 L 139/71 Pulse Oximetry 97 97 99 09/14/21 10:30 09/14/21 11:00 09/14/21 11:30 Temperature Pulse Rate 81 99 H 83 Respiratory Rate Blood Pressure Pulse Oximetry 98 98 95 09/14/21 12:00 09/14/21 12:30 09/14/21 13:00 Temperature Pulse Rate 87 81 85 Respiratory Rate Blood Pressure Pulse Oximetry 93 92 93 09/14/21 13:30 09/14/21 14:00 Temperature Pulse Rate 85 82 Respiratory Rate Blood Pressure 137/76 Pulse Oximetry 94 94 Oxygen Delivery Method Room Air Narrative Exam Narrative: General: Lethargic male who appears mildly uncomfortable HEENT: Nontraumatic, anicteric, pupils equal, EOMI, dry oral mucosa Neck: No lymphadenopathy Lungs: Few bibasilar crackles in the right base Heart: Normal S1 and S2, regular rate and rhythm with some ectopy, no murmur Abdomen: Obese, surgical absence of umbilicus, very tender in the right upper quadrant and epigastric region, no abdominal mass Extremities: Chronic venous stasis changes without pitting edema Neurological: Appears well oriented, normal speech, not tremulous or otherwise appearing in active withdrawal Objective Labs Result Diagrams: 09/14/21 08:41 09/14/21 08:41 Labs: Laboratory Results - last 24 hr 09/14/21 09/14/21 09/14/21 08:41 08:41 08:41 WBC 4.7 RBC 4.04 L Hgb 12.4 L Hct 37.4 L MCV 92.6 D MCH 30.6 MCHC 33.1 RDW 18.9 H Plt Count 89 L Neut % (Auto) 86.1 H Lymph % (Auto) 12.1 L [place] % (Auto) 0.7 L Eos % (Auto) 0.5 L Baso % (Auto) 0.6 Neut # (Auto) 4100 Lymph # (Auto) 600 L [place] # (Auto) 0 Eos # (Auto) 0 Baso # (Auto) 0 Sodium 137 Potassium 3.9 Chloride 105 Carbon Dioxide 23 BUN 23 H Creatinine 0.93 Estimated GFR > 60.0 BUN/Creatinine Ratio 24.7 H Glucose 183 H Calcium 9.4 Magnesium 1.2 L Total Bilirubin 2.8 H AST 182 H ALT 62 H Alkaline Phosphatase 112 Total Creatine Kinase 37 L CK-MB (CK-2) TNP CK-MB (CK-2) Rel Index TNP Troponin I < 0.012 Total Protein 7.0 Albumin 3.4 L Globulin 3.6 Albumin/Globulin Ratio 0.9 L Lipase 4946 H D Urine Color Urine Appearance Urine pH Ur Specific Axis Urine Protein Urine Glucose (UA) Urine Ketones Urine Occult Blood Urine Nitrate Urine Bilirubin Ur Bilirubin Confirm Urine Urobilinogen Ur Leukocyte Esterase Urine RBC Urine WBC Ur Squamous Epith Cells Amorphous Sediment Urine Bacteria Urine Mucus Ur Culture Indicated? U Opiates 300ng/mL cut Ur Oxycodone Screen Urine Methadone Screen Ur Barbiturates Screen U Tricyclic Antidepress Ur Phencyclidine Scrn Ur Amphetamines Screen U Methamphetamines Scrn Ur MDMA Scrn (Ecstasy) U Benzodiazepines Scrn Urine Cocaine Screen U Marijuana (THC) Screen Ethyl Alcohol < 10 SARS-CoV-2 (PCR) Influenza A (RT-PCR) Influenza B (RT-PCR) RSV (PCR) 09/14/21 09/14/21 09/14/21 10:29 11:16 11:16 WBC RBC Hgb Hct MCV MCH MCHC RDW Plt Count Neut % (Auto) Lymph % (Auto) [place] % (Auto) Eos % (Auto) Baso % (Auto) Neut # (Auto) Lymph # (Auto) [place] # (Auto) Eos # (Auto) Baso # (Auto) Sodium Potassium Chloride Carbon Dioxide BUN Creatinine Estimated GFR BUN/Creatinine Ratio Glucose Calcium Magnesium Total Bilirubin AST ALT Alkaline Phosphatase Total Creatine Kinase CK-MB (CK-2) CK-MB (CK-2) Rel Index Troponin I Total Protein Albumin Globulin Albumin/Globulin Ratio Lipase Urine Color [place] Urine Appearance Clear Urine pH 5.0 Ur Specific Axis 1.025 Urine Protein Trace H Urine Glucose (UA) Trace H Urine Ketones 1+ H Urine Occult Blood Trace-intact Urine Nitrate Negative Urine Bilirubin 2+ H Ur Bilirubin Confirm Positive H Urine Urobilinogen 4.0 H Ur Leukocyte Esterase Trace H Urine RBC 1-5/hpf Urine WBC 1-5/hpf Ur Squamous Epith Cells 1-5 /hpf Amorphous Sediment 3+ Urine Bacteria None seen Urine Mucus 2+ H Ur Culture Indicated? Specimen cultured U Opiates 300ng/mL cut Negative Ur Oxycodone Screen Negative Urine Methadone Screen Negative Ur Barbiturates Screen Positive H U Tricyclic Antidepress Positive H Ur Phencyclidine Scrn Negative Ur Amphetamines Screen Negative U Methamphetamines Scrn Negative Ur MDMA Scrn (Ecstasy) Negative U Benzodiazepines Scrn Positive H Urine Cocaine Screen Negative U Marijuana (THC) Screen Negative Ethyl Alcohol SARS-CoV-2 (PCR) Negative Influenza A (RT-PCR) Flu a negative Influenza B (RT-PCR) Flu b negative RSV (PCR) Negative Assessment & Plan Assessment & Plan narrative: 1. Acute biliary pancreatitis -patient presenting with sudden onset upper abdominal pain, nausea and vomiting, elevated lipase, bili and LFTs -dilated CBD on ultrasound and MRCP with presence of stones in gallbladder consistent with biliary etiology, patient either past stone or may have a small stone or possibly lesion in the ampullary causing obstruction -ETOH related pancreatitis less likely with above findings -as noted ER physician spoke with on-call GI (Dr Alcantar) at [facility] and recommendation from there ERCP specialist (Dr Kessler) was to keep patient here for conservative management but that he will need an ERCP in the near future, ER physician was told that they will contact patient to set up the ERCP -patient may need urgent ERCP if he develops fevers or signs of acute cholangitis -continue NS 150 cc/hour -morphine 2-4 mg IV q.4 hours as needed -Zofran, Reglan IV as needed -small sips clear liquids as tolerated -check triglyceride -CBC, CMP in a.m. 2. Alcohol dependency without acute withdrawal -patient endorses has not had any alcohol since discharge on September 12 -has stable ETOH cirrhosis -monitor for signs of ETOH withdrawal 3. Chronic hypomagnesemia -magnesium 1.2 on admission -likely due to alcoholism and PPI use -magnesium sulfate 2 g IV x1 on 09/14 -continue oral magnesium daily 4. GERD -continue omeprazole and sucralfate as tolerated per home routine 5. History of paroxysmal atrial fibrillation -in sinus rhythm on admission EKG -telemetry monitoring DVT prophylaxis: SCDs, Lovenox contraindicated due to thrombocytopenia COVID-19 COVID-19 status: Negative Result date/Date tested (Pos, Neg/Pending): 09/14/21 Time Spent With Patient Critical Care time: I spent a total of [] minutes of critical care time on this patient's care today; this time is exclusive of procedural time.
[2021-09-14] MEDS: SODIUM CHLORIDE 0.9% 1,000 ML 150 ML IV ×2 (15:06→22:17)
[2021-09-14 15:07] LABS: Triglycerides 47 mg/dL (35-150)
[2021-09-14] MEDS: MAGNESIUM SULFATE 2 GM/50 ML PIGGYBACK IV ×2 (15:09→21:09)
--- NOTE | 2021-09-14 15:46 | PC.NURSE ---
discussed need for CIWA protocol and seizure pads with provider. Provider states to just monitor pt. at this time, no need to place seizure pads at this time.
--- NOTE | 2021-09-14 16:15 | PC.NURSE ---
Day shift: Pt with runs of V-tach per FLIGHT ENGINEER PERFORMANCE QUALIFIEDANUJA Arteaga (at approx 1605) and Dr Zhu informed. Mag rider per MAR infusing. Pt asleep w/ no complaints of pain or discomfort. He is easy to awake when sleeping.
[2021-09-14] MEDS: MORPHINE 2 MG/ML INJ IV (17:11)
[2021-09-14] MEDS: POTASSIUM CHLORIDE IN WATER 10 MEQ/100 ML PIGGYBACK 100 MEQ IV (17:15)
[2021-09-14] MEDS: ACETAMINOPHEN 325 MG TABLET 650 MG PO (17:47)
--- NOTE | 2021-09-14 17:55 | PC.NURSE ---
Day shift: Pt with mild shivering and a temp of 100.1. Gave 650mg PO Tylenol. Pt also unable to void at this time after being unsuccessful with urinal. Bladder scanned and found to have approx 300mls in bladder. Dr Zhu informed of these findings.
[2021-09-14] MEDS: POTASSIUM CHLORIDE 20 MEQ TAB PO (18:07)
[2021-09-14] MEDS: PIPERACILLIN/TAZO 4.5 GM in SODIUM CHLORIDE 0.9% 100 ML 25 ML IV (18:15)
[2021-09-14 20:20] LABS: Blood Urea Nitrogen 20 mg/dL (9-20); Calcium 8.5 mg/dL (8.4-10.2); Carbon Dioxide 20 mmol/L (22-32); Chloride 108 mmol/L (98-107); Estimated Glomerular Filt Rate > 60.0 mL/min (>60); Glucose 130 mg/dL (80-110); HEMOLYSIS < 15 (0-50); Magnesium 1.4 mg/dL (1.6-2.3); Potassium 3.5 mmol/L (3.4-5.1); Sodium 136 mmol/L (137-145)
--- NOTE | 2021-09-14 20:45 | PM.CALLCOV.1 ---
Call Coverage Note Note Date of Patient Contact: 09/14/21 Narrative of Care Provided: Patient was noted to be tachycardic in the 140s, then in atrial fibrillation. He is not on either pharmacological prophylaxis or on a blood thinner due to thrombocytopenia and his risk of falling. He has a history of alcohol dependence and his last alcohol consumption was on September 11, 4 days ago. He has chronic hypomagnamesia thought to be secondary his alcohol use. He was ordered for a bmp and mag, and his mag is still low at 1.6. He is ordered for a mag rider X 1, repeat checking his level at his 0500 labs. Currently blood pressure is too soft to give a beta daisha.
[2021-09-14] MEDS: TAMSULOSIN 0.4 MG CAPSULE 0.8 MG PO (21:09)
--- NOTE | 2021-09-14 22:10 | PC.NURSE ---
Addendum entered by Criss Conde R.N. 09/15/21 04:18: Had another 13 beat run of v-tach followed by a 16 beat run of v-tach within 5 minutes. BP 90/55 with MAP of 65. Francisco Javier WOODY, informed and order to give additional 1000cc bolus of NS. Addendum entered by Criss Conde R.N. 09/15/21 02:47: 0148 PSYCHIATRIC AIDES TEACHER, Nae, reported to coordinator, Meme, that patient had a 14 beat run of v-tach. This RN was on break at that time. Original Note: Patient is alert and oriented. Breath sounds CTA with RA sat of 92%. HRR but tachy; PSYCHIATRIC AIDES TEACHER reported a 7 beat run of v-tach at shift change and at time of assessment reported HR varying 120-140's. Francisco Javier WOODY, informed. Patient denying any chest pain, palpitations or SOB. BP at that time was 118/60 and then later was 106/62. CIWA protocol was ordered but CIWA score was only 5. Lab ordered and Mg+ was 1.4 so is now receiving a Mg+ rider. HR continues to fluctuate but is now ranging mostly from 100-120. 1999 telemetry reading was afib RVR w/ventricular tachycardia and rate of 143; continuing to keep Francisco Javier WOODY, apprised of situation. Denies nausea. BT present and abdomen is soft. Denies dysuria, frequency or urgency with urination; uses urinal. Is able to move himself in bed. States he is unsteady on feet and uses either a cane or walker at home; gait not assessed at this time. At shift change stated upper abdominal pain was tolerable at 5/10 and denied pain at time of assessment. Is wearing bilateral calf SCD's. Fall risk score is high and bed alarm is activated.
[2021-09-15] VITALS (10 sets, daily range): BP systolic 89–112; BP diastolic 43–67; PULSE 70–86; RESP 18–22; TEMP 36.4–36.7; O2SAT 93–99
[2021-09-15] MEDS: SODIUM CHLORIDE 0.9% 1,000 ML 1000 ML IV ×2 (00:23→04:12)
[2021-09-15] MEDS: PIPERACILLIN/TAZO 4.5 GM in SODIUM CHLORIDE 0.9% 100 ML 25 ML IV ×2 (01:36→09:33)
[2021-09-15] MEDS: SODIUM CHLORIDE 0.9% FLUSH 10 ML IV (04:12)
[2021-09-15 05:34] LABS: Hematocrit 36.3 % (41-53); Hemoglobin 12.2 g/dL (13.5-17.5); Mean Corpuscular HGB Conc 33.6 % (30-36); Mean Corpuscular Hemoglobin 31.2 PG (26-34); Mean Corpuscular Volume 93.1 fL (80-100); Platelet Count 54 X10^3/uL (150-400); Red Cell Distribution Width 19.1 % (11.6-14.8); White Blood Cell Count 6.3 X10^3/uL (4.5-11.0)
[2021-09-15 05:36] LABS: Add Manual Diff / Slide Review YES
[2021-09-15 05:38] LABS: Alanine Aminotransferase 270 IU/L (<50); Albumin 2.8 g/dL (3.5-5.0); Albumin Globulin Ratio 0.8 (1.0-2.8); BUN Creatinine Ratio 22.1 (6-22); Bilirubin Total 5.8 mg/dL (0.2-1.3); Blood Urea Nitrogen 17 mg/dL (9-20); Calcium 7.9 mg/dL (8.4-10.2); Carbon Dioxide 22 mmol/L (22-32); Chloride 108 mmol/L (98-107); Estimated Glomerular Filt Rate > 60.0 mL/min (>60); Globulin 3.7 g/dL (1.7-4.1); Glucose 104 mg/dL (80-110); Sodium 135 mmol/L (137-145); Total Protein 6.5 g/dL (6.3-8.2)
[2021-09-15 05:41] LABS: HEMOLYSIS 93 (0-50)
[2021-09-15 05:42] LABS: Potassium 5.2 mmol/L (3.4-5.1)
[2021-09-15 05:43] LABS: Alkaline Phosphatase 79 U/L (38-126); Aspartate Aminotransferase 627 IU/L (17-59)
[2021-09-15] MEDS: SUCRALFATE 1 GM TABLET PO (06:07)
[2021-09-15] MEDS: PANTOPRAZOLE DR 20 MG TABLET PO (06:07)
[2021-09-15] MEDS: SODIUM CHLORIDE 0.9% 1,000 ML 150 ML IV (06:13)
[2021-09-15 07:03] LABS: Neutrophils Absolute Manual 5670 /uL (3000-5900); Total Cells Counted 100
[2021-09-15 07:04] LABS: Anisocytosis 2+
[2021-09-15] MEDS: SODIUM CHLORIDE 0.9% 1,000 ML 999 ML IV (07:57)
[2021-09-15 08:21] LABS: Acinetobacter baumannii Not Detected (Not Detect); Candida albicans Not Detected (Not Detect); Candida glabrata Not Detected (Not Detect); Candida krusei Not Detected (Not Detect); Candida parapsilosis Not Detected (Not Detect); Candida tropicalis Not Detected (Not Detect); E. coli Not Detected (Not Detect); Enterobacter cloacae complex Not Detected (Not Detect); Enterobacteriaceae species Detected (Not Detect); Enterococcus species Not Detected (Not Detect); Haemophilus influenzae Not Detected (Not Detect); KPC (carbapenem-resist gene) Not Detected (Not Detect); Listeria monocytogenes Not Detected (Not Detect); Methicillin-resistant gene Not Detected (Not Detect); Neisseria meningitidis Not Detected (Not Detect); Proteus species Not Detected (Not Detect); Pseudomonas aeruginosa Not Detected (Not Detect); Serratia marcescens Not Detected (Not Detect); Staphylococcus species Not Detected (Not Detect); Streptococcus agalactiae (Gr B Not Detected (Not Detect); Streptococcus pneumonia Not Detected (Not Detect); Streptococcus pyogenes (Gr A) Not Detected (Not Detect); Streptococcus species Not Detected (Not Detect); Vancomycin-rest genes A/B Not Detected (Not Detect)
--- NOTE | 2021-09-15 09:59 | PC.NURSE ---
Day shift: Dr Zhu informed of recent lab results.
[2021-09-15 10:30] LABS: INR 1.5 (0.9-1.3); Prothrombin Time 16.6 SECONDS (10.1-12.7)
--- NOTE | 2021-09-15 10:48 | P.DS_ITS ---
History of Present Illness History of Present Illness Chief complaint: ABD PAIN Narrative: Patient is 66-year-old male with history of ETOH dependency, cirrhosis, paroxysmal atrial fibrillation, hypo magnesemia who presents with acute abdominal pain. He was just discharged from here a few days ago on September 12 after admission for alcohol withdrawal. He states he has not had any alcohol use since then. This morning around 3:30 a.m. he got woken up with severe excruciating upper abdominal pain accompanied by severe nausea and vomiting. He denies fevers or chills. Evaluation in the emergency department showed elevated lipase of 4946, bilirubin 2.8 which is slightly above baseline, elevated LFTs slightly above baseline. Magnesium was low at 1.2. His creatinine was normal at 0.93. Chest x-ray and a bdominal x-rays were normal. Abdominal ultrasound showed cholelithiasis without evidence of cholecystitis. Also showed a dilated common bile duct without visible stone. MRCP showed distal common bile duct dilation up to 1.4 cm without choledocholithiasis or focal mass lesion. Patient's symptoms were initially managed with IV analgesics, Zofran, Reglan and IV fluid bolus. ER physician contacted Dr. Ortiz CAZARES on-call at [facility] to review abdominal ultrasound and MRCP findings showing dilated common bile duct with concern obstructing stone or lesion in the ampullary. Case was apparently discussed with Dr. Kessler who is the ERCP specialist and they considered transfer to their hospital for inpatient ERCP but ultimately decided to have patient stay here for conservative management and they will arrange for ERCP to be done as outpatient in the near future. However patient would need more urgent evaluation if develops fever or sign of cholangitis. Discharge Providers Provider Date of admission: 09/14/21 14:16 Discharge Date: 09/15/21 Primary care physician: Maria Teresa Talley PA-C Consults: 09/14/21 15:42 Consult to Supervisor Production Routine Comment: Discharge provider: Chato Zhu MD Summary Hospital Course Discharge Diagnosis: 1. Acute gallstone pancreatitis 2. Acute cholangitis 3. Klebsiella bacteremia 4. Alcohol dependency 5. Paroxysmal atrial fibrillation 6. Ventricular tachycardia versus aberrant conduction 7. Hypomagnesemia, chronic 8. SIRS 9. Thrombocytopenia 09/14/2021 PROCEDURE: US ABDOMEN LIMITED ? INDICATIONS:? UPPER ABDOMEN PAIN, VOMITING ? TECHNIQUE:? Real-time focused scanning was performed of the abdomen, with image documenta tion.? ? COMPARISON:? [facility], , US ABDOMEN LIMITED, 03/24/2021, 22:50. ? FINDINGS: ? Liver:? Hepatic parenchyma shows diffuse increased echogenicity consistent with fatty infiltration. ? Gallbladder:? Biliary sludge and cholelithiasis present without gallbladder wall thickening, pericholecystic fluid or Rothman sign ? Common Bile Duct:? 11.4 mm. ? Pancreas:? Unremarkable as visualized ? IMPRESSION:? ? 1. Cholelithiasis and dilated CBD without evidence of acute cholecystitis.? Consider follow-up MRCP to evaluate for distal CBD stone. ? 2. Mild hepatic fatty infiltration 09/14/2021 abdomen MRI Pancreas and biliary system:? Extrahepatic CBD is dilated up to 1.4 cm without intraluminal filling defect or visualized mass lesion.? Calculi are noted layering dependently in the distended gallbladder.? Pancreas and pancreatic duct unrema rkable. ? Other solid organs:? Liver is normal in size.? Spleen is normal in size.? No adrenal nodules.? Both kidneys are normal in size, without hydronephrosis.? Several simple renal cortical cysts present without hydronephrosis.? Hepatic fatty infiltration noted.? Small subcentimeter left hepatic cyst noted as well. ? Nodes and vessels:? No retroperitoneal or mesenteric adenopathy by size criter ia.? Aorta and inferior vena cava are normal in size.? ? Bowel and peritoneum:? Unenhanced bowel loops are normal in caliber.? No free fluid.? Moderate hiatal hernia ? Lung bases:? No basal pleural effusions.? Heart size is normal.? ? Bones and soft tissues:? No ventral hernias.? Bone marrow is of normal overall signal.? ? IMPRESSION:? ? 1. Distal CBD dilation up to 1.4 cm without evidence of choledocholithiasis or focal mass lesion.? Consider follow-up ERCP to exclude tiny ampullary nonvisualized lesion or stone. ? 2. Cholelithiasis and gallbladder distention without evidence of acute cholecy stitis.? ? 3. Incidental hepatorenal cysts, hepatic fatty infiltration, moderate hiatal hernia Hospital Course: Patient was admitted for acute biliary pancreatitis. Overnight he developed low-grade fever and started to drop his blood pressures. On this a.m. labs, he has a significant bandemia of 30%, rising bilirubin 5.8 versus 2.8 on admit, ris ing AST and ALT level. Also his blood cultures turned positive with Klebsiella in 2 of 2. Antibiotic sensitivities are pending. He was started on Zosyn last night after he developed a fever. He has been afebrile since then. Blood pressures were running 90 systolic range overnight but last BP 112 systolic at 11:00 a.m.. He has been aggressively volume resuscitated with about 8 L in over past 24 hours. His creatinine has been stable although he has been oliguric. O2 sats have been normal on room air. Overall clinical course is consistent with acute cholangitis in this patient with obstructed bile duct, rising bilirubin and liver enzymes, and Klebsiella bacteremia. A lactic acid is pe nding at time of this dictation. We therefore contacted [facility] to transfer patient for urgent GI consultation and hopefully ERCP. I have reviewed case with my counterpart at as well as GI specialist on-call. Additionally patient has been intermittently in atrial fibrillation which is not new diagnosis. He has had multiple runs of wide complex tachycardia which could be either V-tach or aberrant conduction. He has chronic hypomagnesemia with magnesium of 1.2 on admission and received IV replacement with magnesium of 2.0 on this morning labs. Patient was recently admitted for alcohol withdrawal and reports alcohol cessation since then. He has not had any issues with alcohol withdrawal during current admission. INR is 1.5. COVID-19 PCR negative on admission. Status at Discharge Cognitive/behavioral status at discharge: oriented Time Spent with Patient Time spent: Greater than 30 minutes Exam Vital Signs (past 8 hours): - 09/15/21 04:01 09/15/21 04:05 09/15/21 05:23 Temperature 97.6 F Pulse Rate 77 70 Respiratory Rate 18 Blood Pressure 90/55 L 95/58 L Pulse Oximetry 99 98 09/15/21 07:00 09/15/21 08:16 09/15/21 09:27 Temperature 97.6 F Pulse Rate 79 Respiratory Rate 22 Blood Pressure 89/43 L Pulse Oximetry 98 96 93 Oxygen Delivery Method Room Air Oxygen Flow Rate 0 Narrative Exam Narrative: General: Alert and cooperative male in no acute distress Lungs: Breathing is nonlabored. Right basilar crackles no wheeze Heart: Irregularly irregular at controlled rate Abdomen: Obese, quite tender in RUQ and epigastric Extremities: Warm nonedematous Neurological: Mentating well, speech fluent, affect normal, no tremor Objective Labs Result Diagrams: 09/15/21 05:03 09/15/21 05:03 Labs: Laboratory Results - last 24 hr 09/14/21 09/14/21 09/14/21 08:41 10:29 11:16 WBC RBC Hgb Hct MCV MCH MCHC RDW Plt Count Neut % (Auto) Lymph % (Auto) [place] % (Auto) Eos % (Auto) Baso % (Auto) Lymph # (Auto) [place] # (Auto) Baso # (Auto) Total Counted Seg Neutrophils % Band Neutrophils % Lymphocytes % (Manual) Monocytes % (Manual) Metamyelocytes % Neutrophils # (Manual) RBC Morphology Anisocytosis PT INR Sodium Potassium Chloride Carbon Dioxide BUN Creatinine Estimated GFR BUN/Creatinine Ratio Glucose Calcium Magnesium 1.2 L Total Bilirubin AST ALT Alkaline Phosphatase Total Protein Albumin Globulin Albumin/Globulin Ratio Triglycerides Urine Color Urine Appearance Urine pH Ur Specific [place] Urine Protein Urine Glucose (UA) Urine Ketones Urine Occult Blood Urine Nitrate Urine Bilirubin Ur Bilirubin Confirm Urine Urobilinogen Ur Leukocyte Esterase Urine RBC Urine WBC Ur Squamous Epith Cells Amorphous Sediment Urine Bacteria Urine Mucus Ur Culture Indicated? U Opiates 300ng/mL cut Negative Ur Oxycodone Screen Negative Urine Methadone Screen Negative Ur Barbiturates Screen Positive H U Tricyclic Antidepress Positive H Ur Phencyclidine Scrn Negative Ur Amphetamines Screen Negative U Methamphetamines Scrn Negative Ur MDMA Scrn (Ecstasy) Negative U Benzodiazepines Scrn Positive H Urine Cocaine Screen Negative U Marijuana (THC) Screen Negative A. baumannii (PCR) Franchesca albicans (PCR) C. glabrata (PCR) C. krusei (PCR) C. parapsilosis (PCR) C. tropicalis (PCR) SARS-CoV-2 (PCR) Negative Enterobacteriac sp PCR E. cloacae complex PCR Enterococcus sp PCR E. coli (PCR) H. influenzae (PCR) Influenza A (RT-PCR) Flu a negative Influenza B (RT-PCR) Flu b negative Klebsiella oxytoca PCR Klebsiella pneumoniae List. monocytogenes PCR N. meningitidis (PCR) Proteus species (PCR) RSV (PCR) Negative Serratia marcescens PCR Staphylococcus sp PCR Staph aureus (PCR) mecA-Methicil Res Gene Streptococcus sp PCR Group A Strep (PCR) Strep agalactiae (PCR) Strep pneumoniae (PCR) P. aeruginosa (PCR) Marge/B-Vanco Res Genes KPC-Carbap Res Gene PCR 09/14/21 09/14/21 09/14/21 11:16 14:45 19:45 WBC RBC Hgb Hct MCV MCH MCHC RDW Plt Count Neut % (Auto) Lymph % (Auto) [place] % (Auto) Eos % (Auto) Baso % (Auto) Lymph # (Auto) [place] # (Auto) Baso # (Auto) Total Counted Seg Neutrophils % Band Neutrophils % Lymphocytes % (Manual) Monocytes % (Manual) Metamyelocytes % Neutrophils # (Manual) RBC Morphology Anisocytosis PT INR Sodium 136 L Potassium 3.5 Chloride 108 H Carbon Dioxide 20 L BUN 20 Creatinine 0.74 Estimated GFR > 60.0 BUN/Creatinine Ratio 27.0 H Glucose 130 H Calcium 8.5 Magnesium 1.4 L Total Bilirubin AST ALT Alkaline Phosphatase Total Protein Albumin Globulin Albumin/Globulin Ratio Triglycerides 47 Urine Color [place] Urine Appearance Clear Urine pH 5.0 Ur Specific [place] 1.025 Urine Protein Trace H Urine Glucose (UA) Trace H Urine Ketones 1+ H Urine Occult Blood Trace-intact Urine Nitrate Negative Urine Bilirubin 2+ H Ur Bilirubin Confirm Positive H Urine Urobilinogen 4.0 H Ur Leukocyte Esterase Trace H Urine RBC 1-5/hpf Urine WBC 1-5/hpf Ur Squamous Epith Cells 1-5 /hpf Amorphous Sediment 3+ Urine Bacteria None seen Urine Mucus 2+ H Ur Culture Indicated? Specimen cultured U Opiates 300ng/mL cut Ur Oxycodone Screen Urine Methadone Screen Ur Barbiturates Screen U Tricyclic Antidepress Ur Phencyclidine Scrn Ur Amphetamines Screen U Methamphetamines Scrn Ur MDMA Scrn (Ecstasy) U Benzodiazepines Scrn Urine Cocaine Screen U Marijuana (THC) Screen A. baumannii (PCR) Franchesca albicans (PCR) C. glabrata (PCR) C. krusei (PCR) C. parapsilosis (PCR) C. tropicalis (PCR) SARS-CoV-2 (PCR) Enterobacteriac sp PCR E. cloacae complex PCR Enterococcus sp PCR E. coli (PCR) H. influenzae (PCR) Influenza A (RT-PCR) Influenza B (RT-PCR) Klebsiella oxytoca PCR Klebsiella pneumoniae List. monocytogenes PCR N. meningitidis (PCR) Proteus species (PCR) RSV (PCR) Serratia marcescens PCR Staphylococcus sp PCR Staph aureus (PCR) mecA-Methicil Res Gene Streptococcus sp PCR Group A Strep (PCR) Strep agalactiae (PCR) Strep pneumoniae (PCR) P. aeruginosa (PCR) Marge/B-Vanco Res Genes KPC-Carbap Res Gene PCR 09/14/21 09/15/21 09/15/21 19:45 05:03 05:03 WBC 6.3 RBC 3.90 L Hgb 12.2 L Hct 36.3 L MCV 93.1 MCH 31.2 MCHC 33.6 RDW 19.1 H Plt Count 54 L Neut % (Auto) Not Reportable Lymph % (Auto) Not Reportable [place] % (Auto) Not Reportable Eos % (Auto) Not Reportable Baso % (Auto) Not Reportable Lymph # (Auto) Not Reportable [place] # (Auto) Not Reportable Baso # (Auto) Not Reportable Total Counted 100 Seg Neutrophils % 59.0 Band Neutrophils % 31.0 H Lymphocytes % (Manual) 4.0 L Monocytes % (Manual) 5.0 Metamyelocytes % 1.0 H Neutrophils # (Manual) 5670 RBC Morphology See below Anisocytosis 2+ H PT INR Sodium 135 L Potassium 5.2 H D Chloride 108 H Carbon Dioxide 22 BUN 17 Creatinine 0.77 Estimated GFR > 60.0 BUN/Creatinine Ratio 22.1 H Glucose 104 Calcium 7.9 L Magnesium 2.0 Total Bilirubin 5.8 H AST 627 H ALT 270 H Alkaline Phosphatase 79 Total Protein 6.5 Albumin 2.8 L Globulin 3.7 Albumin/Globulin Ratio 0.8 L Triglycerides Urine Color Urine Appearance Urine pH Ur Specific [place] Urine Protein Urine Glucose (UA) Urine Ketones Urine Occult Blood Urine Nitrate Urine Bilirubin Ur Bilirubin Confirm Urine Urobilinogen Ur Leukocyte Esterase Urine RBC Urine WBC Ur Squamous Epith Cells Amorphous Sediment Urine Bacteria Urine Mucus Ur Culture Indicated? U Opiates 300ng/mL cut Ur Oxycodone Screen Urine Methadone Screen Ur Barbiturates Screen U Tricyclic Antidepress Ur Phencyclidine Scrn Ur Amphetamines Screen U Methamphetamines Scrn Ur MDMA Scrn (Ecstasy) U Benzodiazepines Scrn Urine Cocaine Screen U Marijuana (THC) Screen A. baumannii (PCR) Not detected Franchesca albicans (PCR) Not detected C. glabrata (PCR) Not detected C. krusei (PCR) Not detected C. parapsilosis (PCR) Not detected C. tropicalis (PCR) Not detected SARS-CoV-2 (PCR) Enterobacteriac sp PCR Detected H E. cloacae complex PCR Not detected Enterococcus sp PCR Not detected E. coli (PCR) Not detected H. influenzae (PCR) Not detected Influenza A (RT-PCR) Influenza B (RT-PCR) Klebsiella oxytoca PCR Not detected Klebsiella pneumoniae Detected H List. monocytogenes PCR Not detected N. meningitidis (PCR) Not detected Proteus species (PCR) Not detected RSV (PCR) Serratia marcescens PCR Not detected Staphylococcus sp PCR Not detected Staph aureus (PCR) Not detected mecA-Methicil Res Gene Not detected Streptococcus sp PCR Not detected Group A Strep (PCR) Not detected Strep agalactiae (PCR) Not detected Strep pneumoniae (PCR) Not detected P. aeruginosa (PCR) Not detected Marge/B-Vanco Res Genes Not detected KPC-Carbap Res Gene PCR Not detected 09/15/21 10:16 WBC RBC Hgb Hct MCV MCH MCHC RDW Plt Count Neut % (Auto) Lymph % (Auto) [place] % (Auto) Eos % (Auto) Baso % (Auto) Lymph # (Auto) [place] # (Auto) Baso # (Auto) Total Counted Seg Neutrophils % Band Neutrophils % Lymphocytes % (Manual) Monocytes % (Manual) Metamyelocytes % Neutrophils # (Manual) RBC Morphology Anisocytosis PT 16.6 H INR 1.5 H Sodium Potassium Chloride Carbon Dioxide BUN Creatinine Estimated GFR BUN/Creatinine Ratio Glucose Calcium Magnesium Total Bilirubin AST ALT Alkaline Phosphatase Total Protein Albumin Globulin Albumin/Globulin Ratio Triglycerides Urine Color Urine Appearance Urine pH Ur Specific [place] Urine Protein Urine Glucose (UA) Urine Ketones Urine Occult Blood Urine Nitrate Urine Bilirubin Ur Bilirubin Confirm Urine Urobilinogen Ur Leukocyte Esterase Urine RBC Urine WBC Ur Squamous Epith Cells Amorphous Sediment Urine Bacteria Urine Mucus Ur Culture Indicated? U Opiates 300ng/mL cut Ur Oxycodone Screen Urine Methadone Screen Ur Barbiturates Screen U Tricyclic Antidepress Ur Phencyclidine Scrn Ur Amphetamines Screen U Methamphetamines Scrn Ur MDMA Scrn (Ecstasy) U Benzodiazepines Scrn Urine Cocaine Screen U Marijuana (THC) Screen A. baumannii (PCR) Franchesca albicans (PCR) C. glabrata (PCR) C. krusei (PCR) C. parapsilosis (PCR) C. tropicalis (PCR) SARS-CoV-2 (PCR) Enterobacteriac sp PCR E. cloacae complex PCR Enterococcus sp PCR E. coli (PCR) H. influenzae (PCR) Influenza A (RT-PCR) Influenza B (RT-PCR) Klebsiella oxytoca PCR Klebsiella pneumoniae List. monocytogenes PCR N. meningitidis (PCR) Proteus species (PCR) RSV (PCR) Serratia marcescens PCR Staphylococcus sp PCR Staph aureus (PCR) mecA-Methicil Res Gene Streptococcus sp PCR Group A Strep (PCR) Strep agalactiae (PCR) Strep pneumoniae (PCR) P. 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 Family History (Updated 09/11/21 @ 00:56 by Jenna Kebede MD) Unknown Cancer Sister Alcohol dependence Mother Cardiac arrest Social History household members: none Smoking Status: Former smoker alcohol intake: current substance use type: does not use Discharge Plan Discharge Plan Patient Disposition: [facility] Other facility: [facility] Discharge orders & Medications Prescriptions: No Action trazodone 100 mg tablet 100 mg PO BEDTIME PRN (Reason: Insomnia) Qty: 30 5RF Rx Instructions: Continue 100 mg by mouth at bedtime multivitamin [Daily Multi-Vitamin] Tablet 1 tab PO QAM 0RF vitamin B complex Tablet 1 tab PO DAILY 0RF cholecalciferol (vitamin D3) 25 mcg (1,000 unit) capsule 4,000 unit PO DAILY 0RF omeprazole 20 mg capsule,delayed release(DR/EC) 20 mg PO QAM 0RF tamsulosin [Flomax] 0.4 mg capsule 0.8 mg PO QPM Qty: 0 0RF naltrexone 50 mg tablet 50 mg PO DAILY Qty: 30 3RF testosterone cypionate 200 mg/mL oil 200 mg IM Q4W 0RF Label Comments: inject 1 milliliter intramuscularly every 2 weeks folic acid 1 mg Tablet 1 mg PO DAILY Qty: 120 0RF thiamine mononitrate (vit B1) 100 mg Tablet 100 mg PO DAILY Qty: 60 0RF melatonin 10 mg capsule 20 mg PO BEDTIME PRN (Reason: sleep) 0RF Bacid 1 billion cell- 250 mg tablet 1 tab PO DAILY 0RF magnesium 500 mg Tablet 500 mg PO DAILY 0RF sucralfate 1 gram tablet 1 g PO BID 0RF alprazolam 0.25 mg tablet 0.25 mg PO PRN PRN (Reason: Anxiety) 0RF methocarbamol 750 mg tablet 750 mg PO PRN PRN (Reason: Pain (Scale Score 1-3)) 0RF Follow up/Referrals: Maria Teresa Talley PA-C [Primary Care Provider] - Discharge Health Status Multidrug resistant organism: No MDRO Precautions: [place] Diet/Activity/Treatments Diet: Nothing by Mouth Discharge Data Primary Care Provider: Maria Teresa Talley
[2021-09-15] MEDS: MORPHINE 2 MG/ML INJ IV (11:38)
--- NOTE | 2021-09-15 13:15 | PC.NURSE ---
Day shift: Report given to Ayesha at [facility] at approx 1300. All questions answered. Pt left unit via ACLS and report was given to them as well. Pt being transported with IV fluids running per Dr Zhu.
== END 2021-09-15 13:17 | disposition short-term general hospital (02) | DRG 444 ==
LOC: ED 14:04 → AC 14:18
PROVIDERS: Nurse Practitioner Family; Admitting Provider Internal Medicine; Emergency Provider Emergency Medicine; PCP Student in an Organized Health Care Education/Training Program; Referring Provider Emergency Medicine; Visit Provider Internal Medicine
DX: K80.21 Calculus of gallbladder without cholecystitis with obstruction (principal); K85.10 Biliary acute pancreatitis without necrosis or infection; K83.09 Other cholangitis; R78.81 Bacteremia; I47.2 Ventricular tachycardia; R65.10 Systemic inflammatory response syndrome (SIRS) of non-infectious origin without acute organ dysfunction; B96.1 Klebsiella pneumoniae [K. pneumoniae] as the cause of diseases classified elsewhere; F10.20 Alcohol dependence, uncomplicated; K70.30 Alcoholic cirrhosis of liver without ascites; Y90.0 Blood alcohol level of less than 20 mg/100 ml; I48.0 Paroxysmal atrial fibrillation; E83.42 Hypomagnesemia; R34 Anuria and oliguria; K21.9 Gastro-esophageal reflux disease without esophagitis; D69.6 Thrombocytopenia, unspecified; Z87.891 Personal history of nicotine dependence; Z20.822 Contact with and (suspected) exposure to COVID-19
CPT/HCPCS: 0241U; 36415; 74022; 74181; 76705; 80048; 80053; 80305; 80320; 81001; 82550; 83690; 83735; 84478; 84484; 85007; 85025; 85610; 87040; 87086; 87150; 87186; 87205; 93005; 93010; 94760; 96374; 96375; 96376; 99284; C9113; J1885; J2270; J2405; J2543; J2765; J3475

== ENCOUNTER 2021-12-02 14:22 | Inpatient (IN) | payer MEDICARE, OTHER, SELFPAY ==
[2021-09-14 15:34] VITALS: BMI 35.5
[2021-12-02 14:32] VITALS: BP 147/88; PULSE 99; RESP 20; TEMP 36.9; O2SAT 99; BMI 33.2
[2021-12-02 15:23] LABS: COVID19 -Nasal RAPID Negative (Negative)
--- NOTE | 2021-12-02 15:38 | DI.RAD.S_ITS ---
PROCEDURE: XR CHEST 1V INDICATIONS: chest pain TECHNIQUE: One view of the chest was acquired. COMPARISON: [facility], CR, XR CHEST 1V, 03/15/2021, 16:25. FINDINGS: Surgical changes and devices: None. Lungs and pleura: Lungs are clear. No pleural effusions or pneumothorax. Mediastinum: Mediastinal contours appear normal. Heart size is normal. Bones and chest wall: No suspicious bony lesions. Overlying soft tissues appear unremarkable. IMPRESSION: No acute cardiopulmonary pathology. Dictated by: Marcus Liriano M.D. on 12/02/2021 at 15:56 Approved by: Marcus Liriano M.D. on 12/02/2021 at 15:56
[2021-12-02] MEDS: MAGNESIUM SULFATE 2 GM/50 ML PIGGYBACK IV (15:43)
[2021-12-02] MEDS: LORazepam 2 MG/ML INJ IV ×2 (15:44→16:49)
--- NOTE | 2021-12-02 15:49 | PC.NURSE ---
Addendum entered by Abbey Gonzalez R.N. 12/02/21 17:21: Notified provider of 15 second run of VTACH. No new orders. Medicating for withdrawal. Original Note: Notified provider that patient went into a 12 second run of Vtach with symptoms of palpitations, impending doom, and anxiety. Patient self converted. New orders given.
--- NOTE | 2021-12-02 16:21 | ED_ITS ---
HPI - General Adult General Chief complaint: Toxicology Problem Stated complaint: ETOH W/D, wanting Detox Time Seen by Provider: 12/02/21 15:36 History of Present Illness HPI narrative: 66-year-old gentleman presents requesting help with alcohol detox. He has known significant alcohol use disorder with prior detox admissions with delirium tremens, hypomagnesemia, atrial fibrillation and nonsustained ventricular tachycardia. In September he was admitted with gallstone pancreatitis, cholangitis, Klebsiella bacteremia with alcohol detox complications. He has since had biliary stent placement removal ERCP and in October finally had his gallbladder out. He began drinking shortly after that discharge. He notes that he is drinking somewhere between 750 and a 1000mls of vodka daily. Related Data Home Medications Medication Instructions Recorded Confirmed tamsulosin 0.4 mg capsule (Flomax) 0.8 mg PO QPM #0 caps 06/23/19 12/02/21 cholecalciferol (vitamin D3) 25 4,000 unit PO DAILY 10/11/19 12/02/21 mcg (1,000 unit) capsule multivitamin (Daily Multi-Vitamin 1 tab PO QAM 10/11/19 12/02/21 tablet) omeprazole 20 mg capsule,delayed 40 mg PO BID 10/11/19 12/02/21 release vitamin B complex 1 tab PO DAILY 10/11/19 12/02/21 testosterone cypionate 200 mg/mL 200 mg IM Q4W 01/03/21 12/02/21 intramuscular oil melatonin 10 mg capsule 20 mg PO BEDTIME PRN sleep 07/09/21 12/02/21 L.acidophilus-L.bulgar-B.bifid-S.thermoph 1 tab PO DAILY 09/11/21 12/02/21 1 billion cell-250 mg tablet (Bacid) alprazolam 0.25 mg tablet 0.25 mg PO PRN PRN Anxiety 09/11/21 12/02/21 magnesium 500 mg tablet 500 mg PO DAILY 09/11/21 12/02/21 methocarbamol 750 mg tablet 750 mg PO PRN PRN Pain (Scale 09/11/21 12/02/21 Score 1-3) sucralfate 1 gram tablet 1 g PO BID 09/11/21 12/02/21 Previous Rx's Medication Instructions Recorded folic acid 1 mg tablet 1 mg PO DAILY #120 tabs 05/12/21 thiamine mononitrate (vit B1) 100 100 mg PO DAILY #60 tabs 05/12/21 mg tablet naltrexone 50 mg tablet 50 mg PO DAILY #30 tabs 08/12/21 trazodone 100 mg tablet 100 mg PO BEDTIME PRN Insomnia #30 08/15/21 tabs Allergies Allergy/AdvReac Type Severity Reaction Status Date / Time hydrochlorothiazide Allergy Severe Anaphylaxis Verified 11/06/21 13:31 [HYDROCHLOROTHIAZIDE] lisinopril [LISINOPRIL] Allergy Severe Anaphylaxis Verified 11/06/21 13:31 Review of Systems Review of Systems Narrative: Multiple falls, poor appetite, significantly improved belly pain, no diarrhea, no vomiting. Has not noticed irregular heartbeats or palpitations. He has not had an increase in lower extremity edema does not complain about headaches. Remainder of complete review of systems is otherwise unremarkable except for that included in the HPI. Patient History Medical History (Updated 12/02/21 @ 18:39 by Annette Isabel MD) Alcohol use disorder, severe, in early remission Alcohol withdrawal Alcoholism Cirrhosis Hypertension Major depression Surgical History (Updated 12/02/21 @ 16:34 by Annette Isabel MD) H/O rhinoplasty History of fasciotomy 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 S/P cholecystectomy Family History Unknown Cancer Sister Alcohol dependence Mother Cardiac arrest Social History household members: none Smoking Status: Former smoker alcohol intake: current substance use type: does not use Smoking Status: Former smoker alcohol intake frequency: 3 or more drinks per day Alcohol type: hard liquor Substance Use Type: does not use Exam Initial Vital Signs Initial Vital Signs: Vital Signs Temperature 98.4 F 12/02/21 14:32 Pulse Rate 99 H 12/02/21 14:32 Respiratory Rate 20 12/02/21 14:32 Blood Pressure 147/88 H 12/02/21 14:32 Pulse Oximetry 99 12/02/21 14:32 Oxygen Delivery Method 12/02/21 14:32 General: Obese, appears chronically ill, pale but Able to give a complete and coherent history. HEENT: Moist mucous membranes, normal sclera with reactive pupils, contusion around the left eye approximately 3 to 4-day-old. Mild chronic exophthalmos. Neck: No JVD, supple Respiratory: Lungs are clear to auscultation, no wheezing no rales no rhonchi. Full and symmetrical air movement Cardiac: Tachycardic, irregular, no murmurs no bruits Abdomen: Soft, nontender, good bowel tones, prior surgical sites are healing nicely without signs of infection. There is no rebound or guarding. No flank pain Skin: Pale, dry, palmar erythema and spider hemangiomas are appreciated Neurologic: Mild tremor but otherwise Grossly neurologically intact with no obvious asymmetries or abnormalities Extremities: No trauma, chronic venous stasis changes without significant lower extremity edema Psych: Cooperative, appropriate insight and affect Course Orders Ordered: ED Orders 12/03/21 04:10 BMP [Basic Metabolic Panel] DAILY CBC Auto Diff [Complete Blood Count AUTO DIFF] Stat 12/04/21 05:00 BMP [Basic Metabolic Panel] DAILY 12/05/21 05:00 BMP [Basic Metabolic Panel] DAILY 12/06/21 05:00 BMP [Basic Metabolic Panel] DAILY 12/07/21 05:00 BMP [Basic Metabolic Panel] DAILY Chlordiazepoxide HCl (Chlordiazepoxide 25 Mg Capsule) 25 mg PO Q6HR [facility] Last Admin: 12/03/21 06:25 Dose: 25 mg Documented By: Admin: 12/03/21 00:14 Dose: 25 mg Documented By: RUTH Folic Acid (Folic Acid 1 Mg Tablet) 1 mg PO DAILY [facility] Heparin Sodium (Porcine) (Heparin 5,000 Unit/Ml Vial) 5,000 unit SUBCUT BID [facility] Last Admin: 12/03/21 00:15 Dose: 5,000 unit Documented By: RUTH Sodium Chloride (Normal Saline 0.9%) 1,000 mls @ 100 mls/hr IV CONT [facility] Last Admin: 12/03/21 06:24 Dose: 100 mls/hr Documented By: Infusion: 12/03/21 06:24 Dose: 100 mls/hr Documented By: Admin: 12/02/21 21:08 Dose: 100 mls/hr Documented By: RTUH Ceftriaxone Sodium 1,000 mg/ (Sodium Chloride) 100 mls @ 200 mls/hr IV Q24H [facility] Last Infusion: 12/02/21 19:48 Dose: 0 mls/hr Documented By: Admin: 12/02/21 19:03 Dose: 200 mls/hr Documented By: RL Lorazepam (Lorazepam 2 Mg/Ml Inj) 0 mg IV CIWAPRN PRN; Protocol PRN Reason: Alcohol Withdrawal Melatonin (Melatonin 3 Mg Tablet) 9 mg PO BEDTIME PRN PRN Reason: Sleep Last Admin: 12/03/21 00:47 Dose: 9 mg Documented By: RUTH Multivitamins (Multivitamin 1 Tablet) 1 tab PO DAILY SARAH Ondansetron HCl (Ondansetron 4 Mg/2 Ml Inj) 4 mg IV Q6HR PRN PRN Reason: Nausea And Vomiting Pantoprazole Sodium (Pantoprazole Dr 40 Mg Tablet) 40 mg PO BID SARAH Phenobarbital Sodium (Phenobarbital 130 Mg/Ml Vial) 130 mg IV Q8H PRN PRN Reason: Alcohol Withdrawal Last Admin: 12/03/21 00:07 Dose: 130 mg Documented By: RUTH Sucralfate (Sucralfate 1 Gm Tablet) 1 gm PO BID SARAH Tamsulosin HCl (Tamsulosin 0.4 Mg Capsule) 0.8 mg PO QPM SARAH Thiamine HCl (Thiamine 100 Mg Tablet) 100 mg PO DAILY SARAH Trazodone HCl (Trazodone 100 Mg Tablet) 100 mg PO BEDTIME PRN PRN Reason: Insomnia Discontinued Medications Magnesium Sulfate (Magnesium Sulfate) 2 gm in 50 mls @ 150 mls/hr IV NOW ONE Stop: 12/02/21 15:56 Last Infusion: 12/02/21 16:27 Dose: 0 mls/hr Documented By: KYLE Co-signed By: AT Admin: 12/02/21 15:43 Dose: 150 mls/hr Documented By: KYLE Co-signed By: AT Thiamine HCl 100 mg/ Sodium (Chloride) 101 mls @ 404 mls/hr IV NOW ONE Stop: 12/02/21 16:36 Last Infusion: 12/02/21 17:36 Dose: 0 mls/hr Documented By: Admin: 12/02/21 16:49 Dose: 404 mls/hr Documented By: KLYE Ceftriaxone Sodium 1,000 mg/ (Sodium Chloride) 100 mls @ 200 mls/hr IV Q24H SARAH Last Admin: 12/02/21 18:43 Dose: Not Given Documented By: KYLE Lorazepam (Lorazepam 2 Mg/Ml Inj) 2 mg IV NOW ONE Stop: 12/02/21 15:38 Last Admin: 12/02/21 15:44 Dose: 2 mg Documented By: KYLE Lorazepam (Lorazepam 2 Mg/Ml Inj) 2 mg 0.02 mg/kg (2 mg) IV NOW ONE Stop: 12/02/21 16:36 Last Admin: 12/02/21 16:49 Dose: 2 mg Documented By: KYLE Metoprolol Succinate (Metoprolol Er 25 Mg Tablet) 25 mg PO NOW ONE Stop: 12/03/21 00:20 Last Admin: 12/03/21 00:38 Dose: 25 mg Documented By: RUTH Pantoprazole Sodium (Pantoprazole Dr 40 Mg Tablet) 40 mg PO 0700 [facility] Phenobarbital (Phenobarbital 65 Mg/Ml Vial) 1,500 mg IV NOW ONE Stop: 12/02/21 17:39 Last Admin: 12/02/21 17:42 Dose: Not Given Documented By: KYLE Phenobarbital (Phenobarbital 65 Mg/Ml Vial) 260 mg IV NOW ONE Stop: 12/02/21 17:42 Last Admin: 12/02/21 17:50 Dose: 260 mg Documented By: KYLE Vital Signs Vital signs: Vital Signs - 8 hr 12/02/21 14:32 Temperature 98.4 F Pulse Rate 99 H Respiratory Rate 20 Blood Pressure 147/88 H Pulse Oximetry 99 Oxygen Delivery Method Room Air Medical Decision Making Lab Data Result diagrams: 12/03/21 04:10 12/03/21 04:10 Labs: Lab Results 12/02/21 12/02/21 Range/Units 14:52 16:55 U Opiates 300ng/mL cut Negative (Negative) Ur Oxycodone Screen Negative (Negative) Urine Methadone Screen Negative (Negative) Ur Barbiturates Screen Negative (Negative) U Tricyclic Antidepress Negative (Negative) Ur Phencyclidine Scrn Negative (Negative) Ur Amphetamines Screen Negative (Negative) U Methamphetamines Scrn Negative (Negative) Ur MDMA Scrn (Ecstasy) Negative (Negative) U Benzodiazepines Scrn Positive H (Negative) Urine Cocaine Screen Negative (Negative) U Marijuana (THC) Screen Negative (Negative) SARS-CoV-2 (PCR) Negative (Negative) Imaging Data Chest x-ray: Radiologist's Impression: FINDINGS:? ? Surgical changes and devices:? None.? ? Lungs and pleura:? Lungs are clear.? No pleural effusions or pneumothorax.? ? Mediastinum:? Mediastinal contours appear normal.? Heart size is normal.? ? Bones and chest wall:? No suspicious bony lesions.? Overlying soft tissues appear unremarkable.? ? IMPRESSION:? No acute cardiopulmonary pathology. ? ? Dictated by: Marcus Liriano M.D. on 12/02/2021 at 15:56? ?? ECG Data Interpretation: Sinus rhythm at a rate of [address] Un[address] Nonspecific ST T wave changes No acute ischemic findings Over the course of his emergency stay he has had 2 runs of ventricular tachycardia lasting approximately 30 seconds each both of which were associated with a sense of palpitation, increased anxiety and shortness of breath. MDM Narrative Medical decision making narrative: 66-year-old gentleman with a complicated alcohol history and multiple recent surgeries with complicated cholelithiasis with choledocholithiasis. He has had DTs as well as AFib and V-tach related to his alcohol withdrawal symptoms. At this point he is almost 18 hours free of alcohol with alcohol level of 0. He responded moderately well to initial doses of Ativan however continued to have episodes of increased tachycardia with the 2 episodes of V-tach appreciated. He is given 280 mg of phenobarbital and this seems to have improved overall stability. Given thiamine as well as magnesium. Patient will be admitted to the hospitalist service to the CCU for continued alcohol withdrawal treatment and social work help for outpatient follow-up of his alcohol use disorder. He is stable for transfer to the ICU at this time Critical Care Time Critical Care Time Critical Care Time: Yes Total Critical Care Time: 33 Attestation: Critical care time is separate from other billable procedures. There is a high probability of a significant, sudden or life-threatening deterioration that requires my full and direct attention, intervention and personal management. This critical care time includes consultation with family and other consulting doctors, review of records, and interpretation of data from labs, EKGs and imagi ng as well as managements of ventricular tachycardia, possibility of delirium tremens and severe alcohol withdrawal symptoms Discharge Plan Departure Patient Disposition: Admitted As Inpatient Clinical Impression: Alcohol withdrawal, Non-sustained ventricular tachycardia Admit Date/Time: 12/02/21 16:58 Admit Provider: Thomas Fuentes
[2021-12-02] MEDS: THIAMINE 100 MG in SODIUM CHLORIDE 0.9% 100 ML 404 MG IV (16:49)
--- NOTE | 2021-12-02 16:59 | PM.HP.1 ---
History of Present Illness History of Present Illness Chief complaint: ETOH W/D, wanting Detox Narrative: withdrawal ETOH The patient is 66-year-old male with h/o polysubstance abuse and multiple admissions in the past presents with ETOH withdrawal symptoms to ER. He is requesting help with alcohol detox. He had in the past a admissions with delirium tremens, hypomagnesemia, atrial fibrillation and nonsustained ventricular tachycardia.?he has a h/o gallstone pancreatitis, cholangitis, Klebsiella bacteremia with alcohol detox complications.? He drinks about 750 ml vodka daily.He denies chest pain, shortness of breath, nausea, vomiting, diarrhea, denies recent traveling, sick contacts. he has a poor memory and on my rounding alert awake but remembered only name and place . Patient History Medical History (Updated 12/02/21 @ 16:34 by Annette Isabel MD) Alcohol use disorder, severe, in early remission Alcohol withdrawal Alcoholism Cirrhosis Hypertension Major depression Surgical History (Updated 12/02/21 @ 16:34 by Annette Isabel MD) H/O rhinoplasty History of fasciotomy 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 S/P cholecystectomy Family & Social History Family History Unknown Cancer Sister Alcohol dependence Mother Cardiac arrest Social History: household members none Safety & Behavioral: Feels Safe in Current Yes Environment Been Physically Hurt or No Threatened By a Person Suicidal Ideation Description None Suicide Plan Description No Plan Tobacco & Substance use: Smoking Status Former smoker alcohol intake current alcohol intake frequency 3 or more drinks per day Substance Use Type does not use Meds Home Medications and Allergies Home Medications Medication Instructions Recorded Confirmed Type tamsulosin 0.4 mg capsule (Flomax) 0.8 mg PO QPM #0 caps 06/23/19 09/14/21 History cholecalciferol (vitamin D3) 25 4,000 unit PO DAILY 10/11/19 09/14/21 History mcg (1,000 unit) capsule multivitamin (Daily Multi-Vitamin 1 tab PO QAM 10/11/19 09/14/21 History tablet) omeprazole 20 mg capsule,delayed 20 mg PO QAM 10/11/19 09/14/21 History release vitamin B complex 1 tab PO DAILY 10/11/19 09/14/21 History testosterone cypionate 200 mg/mL 200 mg IM Q4W 01/03/21 09/14/21 History intramuscular oil folic acid 1 mg tablet 1 mg PO DAILY #120 tabs 05/12/21 09/14/21 Rx thiamine mononitrate (vit B1) 100 100 mg PO DAILY #60 tabs 05/12/21 09/14/21 Rx mg tablet melatonin 10 mg capsule 20 mg PO BEDTIME PRN sleep 07/09/21 09/14/21 History naltrexone 50 mg tablet 50 mg PO DAILY #30 tabs 08/12/21 09/14/21 Rx trazodone 100 mg tablet 100 mg PO BEDTIME PRN Insomnia #30 08/15/21 09/14/21 Rx tabs L.acidophilus-L.bulgar-B.bifid-S.thermoph 1 tab PO DAILY 09/11/21 09/14/21 History 1 billion cell-250 mg tablet (Bacid) alprazolam 0.25 mg tablet 0.25 mg PO PRN PRN Anxiety 09/11/21 09/14/21 History magnesium 500 mg tablet 500 mg PO DAILY 09/11/21 09/14/21 History methocarbamol 750 mg tablet 750 mg PO PRN PRN Pain (Scale 09/11/21 09/14/21 History Score 1-3) sucralfate 1 gram tablet 1 g PO BID 09/11/21 09/14/21 History Allergies Allergy/AdvReac Type Severity Reaction Status Date / Time hydrochlorothiazide Allergy Severe Anaphylaxis Verified 11/06/21 13:31 [HYDROCHLOROTHIAZIDE] lisinopril [LISINOPRIL] Allergy Severe Anaphylaxis Verified 11/06/21 13:31 Review of Systems Review of Systems ROS: Yes All systems reviewed with the patient and are negative except as otherwise documented Eyes Eyes: Reports as per HPI ENT Ears, Nose, Mouth, and Throat: Yes as per HPI Cardiovascular Cardiovascular: Reports as per HPI Respiratory Respiratory: Reports as per HPI Gastrointestinal Gastrointestinal: Reports as per HPI Genitourinary Genitourinary: Reports as per HPI Musculoskeletal Musculoskeletal: Reports as per HPI Integumentary/Breasts Skin/Breast: Reports as per HPI Neurologic Neurologic: Reports as per HPI Psychiatric Psychiatric: Reports as per HPI Exam Vital Signs (past 8 hours): - 12/02/21 14:32 Temperature 98.4 F Pulse Rate 99 H Respiratory Rate 20 Blood Pressure 147/88 H Pulse Oximetry 99 Oxygen Delivery Method Room Air Oxygen Delivery Method Room Air Const General: cooperative and well developed Orientation: alert, awake and oriented x3 HENMT Head: normal to inspection Nose: external nose normal Mouth: oral mucosae normal Eyes Pupils: PERRL EOM: EOM intact bilaterally Neck Neck: normal visual inspection and full ROM Chest Chest: normal inspection of the chest Resp Auscultation: clear to auscultation bilaterally Cardio Rate: regular rate Rhythm: regular rhythm GI Inspection: normal to inspection Palpation: no hepatosplenomegaly Auscultation: normal bowel sounds Skin General: no rashes or lesions noted Neuro General: patient alert, patient awake, patient oriented x3, moves all extremities and no focal motor deficits Speech: speech normal Extrem General: normal to inspection, full ROM and no pedal edema Psych Appearance: grossly normal Objective Labs Result Diagrams: 12/02/21 17:55 12/02/21 17:55 Labs: Laboratory Results - last 24 hr 12/02/21 14:52 SARS-CoV-2 (PCR) Negative Assessment & Plan Assessment & Plan narrative: Alcohol withdrawal - CIWA protocol - IVF -thiamine, folic acid -place in ICU Polysubstance abuse -counseled UTI trace leukocytosis in urine -ceftriaxone IV Transaminitis secondary to alcohol abuse -trend LFTs Pancytopenia/Thrombocytopenia secondary to alcohol abuse - CBC daily -no anticoagulation DVT prophylaxis: SCD Code status: full discussed with ER physician, pt and rn Time Spent With Patient Critical Care time: I spent a total of [] minutes of critical care time on this patient's care today; this time is exclusive of procedural time.
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
[2021-12-02] MEDS: PHENobarbital 65 MG/ML VIAL 260 MG IV (17:50)
[2021-12-02 18:02] LABS: Add Manual Diff / Slide Review NO; Basophils Absolute Auto 0 /uL (0-100); Basophils Percent Auto 1.2 % (0-2); Eosinophils Absolute Auto 0 /uL (0-450); Hematocrit 36.5 % (41-53); Hemoglobin 12.5 g/dL (13.5-17.5); Lymphocytes Absolute Auto 800 /uL (1100-4500); Lymphocytes Percent Auto 26.3 % (25-40); Mean Corpuscular HGB Conc 34.2 % (30-36); Mean Corpuscular Hemoglobin 31.4 PG (26-34); Mean Corpuscular Volume 91.6 fL (80-100); Monocytes Absolute Auto 200 /uL (0-900); Neutrophils Absolute Auto 2000 /uL (1500-7000); Neutrophils Percent Auto 65.5 % (50-75); Platelet Count 111 X10^3/uL (150-400); Red Blood Cell Count 3.98 X10^6/uL (4.5-5.9); Red Cell Distribution Width 17.9 % (11.6-14.8)
[2021-12-02 18:10] LABS: UR Morphine/Opiate cutoff 300 Negative (Negative); Ur Creatinine Normal (Normal); Ur Specific Gravity Normal (Normal); Urine Amphetamines Negative (Negative); Urine Barbiturates Negative (Negative); Urine Benzodiazepines Positive (Negative); Urine Cocaine Negative (Negative); Urine MDMA Negative (Negative); Urine Methadone Negative (Negative); Urine Methamphetamines Negative (Negative); Urine Oxycodone Negative (Negative); Urine Phencyclidine Negative (Negative); Urine Tetrahydrocannabinol Negative (Negative); Urine Tricyclic Antidepressant Negative (Negative); Urine pH Normal (Normal)
[2021-12-02 18:19] LABS: Acetaminophen < 10 ug/mL (10-30); Alanine Aminotransferase 22 IU/L (<50); Albumin 3.3 g/dL (3.5-5.0); Albumin Globulin Ratio 1.1 (1.0-2.8); Alkaline Phosphatase 89 U/L (38-126); Aspartate Aminotransferase 51 IU/L (17-59); BUN Creatinine Ratio 21.2 (6-22); Bilirubin Total 1.2 mg/dL (0.2-1.3); Blood Urea Nitrogen 14 mg/dL (9-20); Calcium 8.8 mg/dL (8.4-10.2); Carbon Dioxide 30 mmol/L (22-32); Chloride 101 mmol/L (98-107); Estimated Glomerular Filt Rate > 60 mL/min (>60); Ethanol (ETOH) < 10 mg/dL; Globulin 3.1 g/dL (1.7-4.1); Glucose 113 mg/dL (80-110); HEMOLYSIS < 15 (0-50); Potassium 4.1 mmol/L (3.4-5.1); Salicylate < 1.0 mg/dL (<20); Sodium 135 mmol/L (137-145); Total Protein 6.4 g/dL (6.3-8.2)
[2021-12-02] MEDS: cefTRIAXone 1,000 MG in SODIUM CHLORIDE 0.9% 100 ML 200 MG IV (19:03)
[2021-12-02 19:33] LABS: Free T4, Direct Thyroxine 0.88 ng/dL (0.78-2.19)
[2021-12-02 19:47] LABS: Thyroid Stimulating Hormone 0.518 uIU/mL (0.47-4.68)
[2021-12-02 20:00] VITALS: BMI 32.8
[2021-12-02 20:12] VITALS: BP 141/79; PULSE 82; RESP 15; TEMP 37.5; O2SAT 93
--- NOTE | 2021-12-02 20:39 | PM.CALLCOV.1 ---
Call Coverage Note Note Date of Patient Contact: 12/02/21 Time of Patient Contact: 20:39 Narrative of Care Provided: Patient's last drink was 12/02 or 12/01. drinks 750-1000 ml vodka/day. Status post cholecystectomy in October w/no further issues. He is alert and oriented X 4, was not able to identify the right medication he was allergic to. Afib only occurs when he is withdrawing, not told he has it chronically. Participated in [facility] ICU visit. I have entered orders for librium 25 mg po qid, phenobarbitol 130 mg q 8 hours as needed for withdrawal, ativan 2 mg q6 hours for withdrawal and a daily multivitamin. He may be placed on a precedex drip if necessary.
[2021-12-02 21:00] VITALS: BP 157/72; PULSE 83; RESP 17; O2SAT 97
[2021-12-02] MEDS: SODIUM CHLORIDE 0.9% 1,000 ML 100 ML IV (21:08)
--- NOTE | 2021-12-02 21:13 | P.TELICUCN_ITS ---
History of Present Illness Consult details Chief complaint: ETOH W/D, wanting Detox Narrative: is 66-year-old male with H/o of ?depression , ETOH abuse , multiple withdrawals, DT, cirrhosis, pancreatitis, cholangitis, arrhythmias ( Afib and NSVTach) only when having alcohol withdrawal, he is here for alcohol detox. He drinks about 750 ? 1000 ml vodka daily. He did have a run of NSVtach , received IV mg and phenobarbital. Assessment: Alcohol withdrawal Alcohol abuse Cardiac arrhythmia ( NSVT) Neutropenia and thrombocytopenia 2/2 alcohol intake and liver cirrhosis H/o of cirrhosis H/o of depression H/O of BPH Rec: - Seizure precaution - Librium scheduled 25 mg QID - CIWA scale and Ativan accordingly - IV Phenobarbital 130 mg x 1 now and Q8h as needed - Daily CMP, keep Mag and K above 2&4 - Thiamine, folic acid & MV - PPI for DVT ppx- SC heparin bid for DVT ppx (hold if Plat <100) - Resume home trazodone and meltonine - Resume home Tamsulosin PFSH Medical History (Updated 12/02/21 @ 18:39 by Annette Isabel MD) Alcohol use disorder, severe, in early remission Alcohol withdrawal Alcoholism Cirrhosis Hypertension Major depression Surgical History (Updated 12/02/21 @ 16:34 by Annette Isabel MD) H/O rhinoplasty History of fasciotomy 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 S/P cholecystectomy Family History Unknown Cancer Sister Alcohol dependence Mother Cardiac arrest Social History household members: none Smoking Status: Former smoker alcohol intake: current substance use type: does not use Current Medications Current Medications Medications: Home Medications tamsulosin 0.4 mg capsule (Flomax) 0.8 mg PO QPM #0 caps 06/23/19 [History Confirmed 09/14/21] cholecalciferol (vitamin D3) 25 mcg (1,000 unit) capsule 4,000 unit PO DAILY 10/11/19 [History Confirmed 09/14/21] multivitamin (Daily Multi-Vitamin tablet) 1 tab PO QAM 10/11/19 [History Confirmed 09/14/21] omeprazole 20 mg capsule,delayed release 20 mg PO QAM 10/11/19 [History Confirmed 09/14/21] vitamin B complex 1 tab PO DAILY 10/11/19 [History Confirmed 09/14/21] testosterone cypionate 200 mg/mL intramuscular oil 200 mg IM Q4W 01/03/21 [History Confirmed 09/14/21] folic acid 1 mg tablet 1 mg PO DAILY #120 tabs 05/12/21 [Rx Confirmed 09/14/21] thiamine mononitrate (vit B1) 100 mg tablet 100 mg PO DAILY #60 tabs 05/12/21 [Rx Confirmed 09/14/21] melatonin 10 mg capsule 20 mg PO BEDTIME PRN sleep 07/09/21 [History Confirmed 09/14/21] naltrexone 50 mg tablet 50 mg PO DAILY #30 tabs 08/12/21 [Rx Confirmed 09/14/21] trazodone 100 mg tablet 100 mg PO BEDTIME PRN Insomnia #30 tabs 08/15/21 [Rx Confirmed 09/14/21] L.acidophilus-L.bulgar-B.bifid-S.thermoph 1 billion cell-250 mg tablet (Bacid) 1 tab PO DAILY 09/11/21 [History Confirmed 09/14/21] alprazolam 0.25 mg tablet 0.25 mg PO PRN PRN Anxiety 09/11/21 [History Confirmed 09/14/21] magnesium 500 mg tablet 500 mg PO DAILY 09/11/21 [History Confirmed 09/14/21] methocarbamol 750 mg tablet 750 mg PO PRN PRN Pain (Scale Score 1-3) 09/11/21 [History Confirmed 09/14/21] sucralfate 1 gram tablet 1 g PO BID 09/11/21 [History Confirmed 09/14/21] Visit Medications (administered) Generic Name Dose Route Start Last Admin Trade Name Freq PRN Reason Stop Dose Admin Sodium Chloride 1,000 mls @ 100 mls/hr 12/02/21 17:00 12/02/21 21:08 Normal Saline 0.9% IV 100 mls/hr CONT SARAH Administration Ceftriaxone Sodium 1,000 mg/ 100 mls @ 200 mls/hr 12/02/21 18:45 12/02/21 19:48 Sodium Chloride IV Infused Q24H SARAH Infusion Exam Vital Signs (past 8 hours): - 06/20/22 14:32 Temperature 98.4 F Pulse Rate 99 H Respiratory Rate 20 Blood Pressure 147/88 H Pulse Oximetry 99 Oxygen Delivery Method Room Air Oxygen Delivery Method Room Air Objective Labs Result Diagrams: 12/02/21 17:55 12/02/21 17:55 Labs: Laboratory Results - last 24 hr 12/02/21 12/02/21 12/02/21 14:52 16:55 17:55 WBC 3.0 L RBC 3.98 L Hgb 12.5 L Hct 36.5 L MCV 91.6 MCH 31.4 MCHC 34.2 RDW 17.9 H Plt Count 111 L Neut % (Auto) 65.5 Lymph % (Auto) 26.3 [place] % (Auto) 7.0 Eos % (Auto) 0.0 L Baso % (Auto) 1.2 Neut # (Auto) 2000 Lymph # (Auto) 800 L [place] # (Auto) 200 Eos # (Auto) 0 Baso # (Auto) 0 Sodium Potassium Chloride Carbon Dioxide BUN Creatinine Estimated GFR BUN/Creatinine Ratio Glucose Calcium Total Bilirubin AST ALT Alkaline Phosphatase Total Protein Albumin Globulin Albumin/Globulin Ratio TSH Free T4 Salicylates U Opiates 300ng/mL cut Negative Ur Oxycodone Screen Negative Urine Methadone Screen Negative Acetaminophen Ur Barbiturates Screen Negative U Tricyclic Antidepress Negative Ur Phencyclidine Scrn Negative Ur Amphetamines Screen Negative U Methamphetamines Scrn Negative Ur MDMA Scrn (Ecstasy) Negative U Benzodiazepines Scrn Positive H Urine Cocaine Screen Negative U Marijuana (THC) Screen Negative Ethyl Alcohol SARS-CoV-2 (PCR) Negative 12/02/21 12/02/21 17:55 17:55 WBC RBC Hgb Hct MCV MCH MCHC RDW Plt Count Neut % (Auto) Lymph % (Auto) [place] % (Auto) Eos % (Auto) Baso % (Auto) Neut # (Auto) Lymph # (Auto) [place] # (Auto) Eos # (Auto) Baso # (Auto) Sodium 135 L Potassium 4.1 Chloride 101 Carbon Dioxide 30 BUN 14 Creatinine 0.66 Estimated GFR > 60 BUN/Creatinine Ratio 21.2 Glucose 113 H Calcium 8.8 Total Bilirubin 1.2 AST 51 ALT 22 Alkaline Phosphatase 89 Total Protein 6.4 Albumin 3.3 L Globulin 3.1 Albumin/Globulin Ratio 1.1 TSH 0.518 Free T4 0.88 Salicylates < 1.0 U Opiates 300ng/mL cut Ur Oxycodone Screen Urine Methadone Screen Acetaminophen < 10 Ur Barbiturates Screen U Tricyclic Antidepress Ur Phencyclidine Scrn Ur Amphetamines Screen U Methamphetamines Scrn Ur MDMA Scrn (Ecstasy) U Benzodiazepines Scrn Urine Cocaine Screen U Marijuana (THC) Screen Ethyl Alcohol < 10 SARS-CoV-2 (PCR) Assessment & Plan Time Spent With Patient Critical Care time: I spent a total of [] minutes of critical care time on this patient's care today; this time is exclusive of procedural time.
[2021-12-02 22:00] VITALS: BP 138/80; PULSE 95; RESP 17; O2SAT 96
[2021-12-02 23:00] VITALS: BP 119/74; PULSE 93; RESP 18; O2SAT 96
--- NOTE | 2021-12-02 23:41 | PC.NURSE ---
Addendum entered by Razia De Luna R.N. 12/03/21 07:00: EKG done, patient SR 80 to SVT 140s. Ema WOODY notified, new order for Metoprolol 25mg ER PO given. HR gradually slowed down, stopped having frequent runs of SVT. This am SB 58 to SR 70 with occasional PVC. Slept well during the night, CIWA 0-2, gave two scheduled doses of Librium and one dose of phenobarbital. Original Note: Patient having runs of SVT vs afib 150s, then converting back to SR, called and informed BONG Reynolds, per BONG Reynolds give prn dose of phenobarbital, if patient continues to have runs of SVT vs Atrial after Phenobarbital get a 12 lead EKG.
[2021-12-03] VITALS (28 sets, daily range): BP systolic 99–140; BP diastolic 54–82; PULSE 56–140; RESP 7–27; TEMP 36.3–36.8; O2SAT 90–100
[2021-12-03] MEDS: PHENobarbital 130 MG/ML VIAL IV (00:07)
[2021-12-03] MEDS: chlordiazePOXIDE 25 MG CAPSULE PO ×5 (00:14→23:59)
[2021-12-03] MEDS: HEPARIN 5,000 UNIT/ML VIAL 5000 UNIT SUBCUT ×2 (00:15→08:50)
[2021-12-03] MEDS: METOPROLOL ER 25 MG TABLET PO (00:38)
[2021-12-03] MEDS: MELATONIN 3 MG TABLET 9 MG PO ×2 (00:47→21:28)
[2021-12-03 04:29] LABS: Add Manual Diff / Slide Review NO; Basophils Absolute Auto 0 /uL (0-100); Basophils Percent Auto 1.7 % (0-2); Eosinophils Absolute Auto 0 /uL (0-450); Eosinophils Percent Auto 1.9 % (2-4); Hematocrit 31.5 % (41-53); Hemoglobin 10.7 g/dL (13.5-17.5); Lymphocytes Absolute Auto 1200 /uL (1100-4500); Lymphocytes Percent Auto 46.2 % (25-40); Mean Corpuscular HGB Conc 34.1 % (30-36); Mean Corpuscular Hemoglobin 31.3 PG (26-34); Mean Corpuscular Volume 91.9 fL (80-100); Monocytes Absolute Auto 200 /uL (0-900); Monocytes Percent Auto 8.8 % (3-14); Neutrophils Absolute Auto 1000 /uL (1500-7000); Neutrophils Percent Auto 41.4 % (50-75); Platelet Count 83 X10^3/uL (150-400); Red Blood Cell Count 3.42 X10^6/uL (4.5-5.9); Red Cell Distribution Width 17.5 % (11.6-14.8); White Blood Cell Count 2.5 X10^3/uL (4.5-11.0)
[2021-12-03 04:35] LABS: BUN Creatinine Ratio 24.6 (6-22); Blood Urea Nitrogen 14 mg/dL (9-20); Calcium 7.9 mg/dL (8.4-10.2); Carbon Dioxide 30 mmol/L (22-32); Chloride 102 mmol/L (98-107); Estimated Glomerular Filt Rate > 60 mL/min (>60); Glucose 82 mg/dL (80-110); HEMOLYSIS < 15 (0-50); Potassium 3.5 mmol/L (3.4-5.1); Sodium 134 mmol/L (137-145)
[2021-12-03] MEDS: SODIUM CHLORIDE 0.9% 1,000 ML 100 ML IV (06:24)
[2021-12-03] MEDS: FOLIC ACID 1 MG TABLET PO (08:49)
[2021-12-03] MEDS: PANTOPRAZOLE DR 40 MG TABLET PO (08:49)
[2021-12-03] MEDS: THIAMINE 100 MG TABLET PO (08:49)
[2021-12-03] MEDS: MULTIVITAMIN 1 TABLET 1 TAB PO (08:50)
[2021-12-03] MEDS: SUCRALFATE 1 GM TABLET PO ×2 (08:50→21:28)
[2021-12-03] MEDS: POTASSIUM CHLORIDE 20 MEQ TAB 40 MEQ PO (09:14)
--- NOTE | 2021-12-03 10:06 | P.TELICUPN_ITS ---
Subjective Subjective If camera was activated, add TeleICU A-V statement: is 66-year-old male with H/o of ?depression , ETOH abuse , multiple withdrawals, DT, cirrhosis, pancreatitis, cholangitis, arrhythmias ( Afib and NSVTach) only when having alcohol withdrawal, he is here for alcohol detox. He drinks about 750 ? 1000 ml vodka daily.?He did have a run of NSVtach , received IV mg and phenobarbital. Assessment: Alcohol withdrawal Alcohol abuse Cardiac arrhythmia ( NSVT) Neutropenia and thrombocytopenia 2/2 alcohol intake and liver cirrhosis H/o of cirrhosis H/o of depression H/O of BPH Rec: - Seizure precaution - continue Librium scheduled 25 mg QID - CIWA scale and Ativan accordingly - IV Phenobarbital 130 mg Q8h as needed - Daily CMP, keep Mag and K above 2&4 - Thiamine, folic acid & MV - PPI for GI ppx, switch to H2B bec of thrombocytopenia - DVT ppx- SCD, DC SC heparin as Plat <100) - Home trazodone and meltonine - Home Tamsulosin Current Medications Current Medications Medications: Home Medications tamsulosin 0.4 mg capsule (Flomax) 0.8 mg PO QPM #0 caps 06/23/19 [History Confirmed 12/02/21] cholecalciferol (vitamin D3) 25 mcg (1,000 unit) capsule 4,000 unit PO DAILY 10/11/19 [History Confirmed 12/02/21] multivitamin (Daily Multi-Vitamin tablet) 1 tab PO QAM 10/11/19 [History Confirmed 12/02/21] omeprazole 20 mg capsule,delayed release 40 mg PO BID 10/11/19 [History Confirmed 12/02/21] vitamin B complex 1 tab PO DAILY 10/11/19 [History Confirmed 12/02/21] testosterone cypionate 200 mg/mL intramuscular oil 200 mg IM Q4W 01/03/21 [History Confirmed 12/02/21] folic acid 1 mg tablet 1 mg PO DAILY #120 tabs 05/12/21 [Rx Confirmed 12/02/21] thiamine mononitrate (vit B1) 100 mg tablet 100 mg PO DAILY #60 tabs 05/12/21 [Rx Confirmed 12/02/21] melatonin 10 mg capsule 20 mg PO BEDTIME PRN sleep 07/09/21 [History Confirmed 12/02/21] naltrexone 50 mg tablet 50 mg PO DAILY #30 tabs 08/12/21 [Rx Confirmed 12/02/21] trazodone 100 mg tablet 100 mg PO BEDTIME PRN Insomnia #30 tabs 08/15/21 [Rx Confirmed 12/02/21] L.acidophilus-L.bulgar-B.bifid-S.thermoph 1 billion cell-250 mg tablet (Bacid) 1 tab PO DAILY 09/11/21 [History Confirmed 12/02/21] alprazolam 0.25 mg tablet 0.25 mg PO PRN PRN Anxiety 09/11/21 [History Confirmed 12/02/21] magnesium 500 mg tablet 500 mg PO DAILY 09/11/21 [History Confirmed 12/02/21] methocarbamol 750 mg tablet 750 mg PO PRN PRN Pain (Scale Score 1-3) 09/11/21 [History Confirmed 12/02/21] sucralfate 1 gram tablet 1 g PO BID 09/11/21 [History Confirmed 12/02/21] Visit Medications (administered) Generic Name Dose Route Start Last Admin Trade Name Freq PRN Reason Stop Dose Admin Chlordiazepoxide HCl 25 mg 12/03/21 00:00 12/03/21 06:25 Chlordiazepoxide 25 Mg Capsule PO 25 mg Q6HR SARAH Administration Folic Acid 1 mg 12/03/21 09:00 12/03/21 08:49 Folic Acid 1 Mg Tablet PO 1 mg DAILY SARAH Administration Heparin Sodium (Porcine) 5,000 unit 12/02/21 21:00 12/03/21 08:50 Heparin 5,000 Unit/Ml Vial SUBCUT 5,000 unit BID SARAH Administration Sodium Chloride 1,000 mls @ 100 mls/hr 12/02/21 17:00 12/03/21 06:24 Normal Saline 0.9% IV 100 mls/hr CONT SARAH Administration Ceftriaxone Sodium 1,000 mg/ 100 mls @ 200 mls/hr 12/02/21 18:45 12/02/21 19:48 Sodium Chloride IV Infused Q24H SARAH Infusion Melatonin 9 mg 12/03/21 00:27 12/03/21 00:47 Melatonin 3 Mg Tablet PO 9 mg BEDTIME PRN Administration Sleep Multivitamins 1 tab 12/03/21 09:00 12/03/21 08:50 Multivitamin 1 Tablet PO 1 tab DAILY SARAH Administration Pantoprazole Sodium 40 mg 12/03/21 09:00 12/03/21 08:[address] 40 Mg Tablet PO 40 mg BID SARAH Administration Phenobarbital Sodium 130 mg 12/02/21 20:36 12/03/21 00:07 Phenobarbital 130 Mg/Ml Vial IV 130 mg Q8H PRN Administration Alcohol Withdrawal Sucralfate 1 gm 12/03/21 09:00 12/03/21 08:50 Sucralfate 1 Gm Tablet PO 1 gm BID SARAH Administration Thiamine HCl 100 mg 12/03/21 09:00 12/03/21 08:49 Thiamine 100 Mg Tablet PO 100 mg DAILY SARAH Administration Objective Labs Result Diagrams: 12/03/21 04:10 12/03/21 04:10 Labs: Laboratory Results - last 24 hr 12/02/21 12/02/21 12/02/21 14:52 16:55 17:55 WBC 3.0 L RBC 3.98 L Hgb 12.5 L Hct 36.5 L MCV 91.6 MCH 31.4 MCHC 34.2 RDW 17.9 H Plt Count 111 L Neut % (Auto) 65.5 Lymph % (Auto) 26.3 [place] % (Auto) 7.0 Eos % (Auto) 0.0 L Baso % (Auto) 1.2 Neut # (Auto) 2000 Lymph # (Auto) [address] [place] # (Auto) 200 Eos # (Auto) 0 Baso # (Auto) 0 Sodium Potassium Chloride Carbon Dioxide BUN Creatinine Estimated GFR BUN/Creatinine Ratio Glucose Calcium Total Bilirubin AST ALT Alkaline Phosphatase Total Protein Albumin Globulin Albumin/Globulin Ratio TSH Free T4 Nasal Screen MRSA (PCR) Salicylates U Opiates 300ng/mL cut Negative Ur Oxycodone Screen Negative Urine Methadone Screen Negative Acetaminophen Ur Barbiturates Screen Negative U Tricyclic Antidepress Negative Ur Phencyclidine Scrn Negative Ur Amphetamines Screen Negative U Methamphetamines Scrn Negative Ur MDMA Scrn (Ecstasy) Negative U Benzodiazepines Scrn Positive H Urine Cocaine Screen Negative U Marijuana (THC) Screen Negative Ethyl Alcohol SARS-CoV-2 (PCR) Negative 12/02/21 12/02/21 12/02/21 17:55 17:55 20:00 WBC RBC Hgb Hct MCV MCH MCHC RDW Plt Count Neut % (Auto) Lymph % (Auto) [place] % (Auto) Eos % (Auto) Baso % (Auto) Neut # (Auto) Lymph # (Auto) [place] # (Auto) Eos # (Auto) Baso # (Auto) Sodium 135 L Potassium 4.1 Chloride 101 Carbon Dioxide 30 BUN 14 Creatinine 0.66 Estimated GFR > 60 BUN/Creatinine Ratio 21.2 Glucose 113 H Calcium 8.8 Total Bilirubin 1.2 AST 51 ALT 22 Alkaline Phosphatase 89 Total Protein 6.4 Albumin 3.3 L Globulin 3.1 Albumin/Globulin Ratio 1.1 TSH 0.518 Free T4 0.88 Nasal Screen MRSA (PCR) Positive for mrsa H Salicylates < 1.0 U Opiates 300ng/mL cut Ur Oxycodone Screen Urine Methadone Screen Acetaminophen < 10 Ur Barbiturates Screen U Tricyclic Antidepress Ur Phencyclidine Scrn Ur Amphetamines Screen U Methamphetamines Scrn Ur MDMA Scrn (Ecstasy) U Benzodiazepines Scrn Urine Cocaine Screen U Marijuana (THC) Screen Ethyl Alcohol < 10 SARS-CoV-2 (PCR) 12/03/21 12/03/21 04:10 04:10 WBC 2.5 L RBC 3.42 L Hgb 10.7 L Hct 31.5 L MCV 91.9 MCH 31.3 MCHC 34.1 RDW 17.5 H Plt Count 83 L Neut % (Auto) 41.4 L D Lymph % (Auto) 46.[address] [place] % (Auto) 8.8 Eos % (Auto) 1.9 L Baso % (Auto) 1.7 Neut # (Auto) 1000 L Lymph # (Auto) 1200 [place] # (Auto) 200 Eos # (Auto) 0 Baso # (Auto) 0 Sodium 134 L Potassium 3.5 Chloride 102 Carbon Dioxide 30 BUN 14 Creatinine 0.57 L Estimated GFR > 60 BUN/Creatinine Ratio 24.6 H Glucose 82 Calcium 7.9 L Total Bilirubin AST ALT Alkaline Phosphatase Total Protein Albumin Globulin Albumin/Globulin Ratio TSH Free T4 Nasal Screen MRSA (PCR) Salicylates U Opiates 300ng/mL cut Ur Oxycodone Screen Urine Methadone Screen Acetaminophen Ur Barbiturates Screen U Tricyclic Antidepress Ur Phencyclidine Scrn Ur Amphetamines Screen U Methamphetamines Scrn Ur MDMA Scrn (Ecstasy) U Benzodiazepines Scrn Urine Cocaine Screen U Marijuana (THC) Screen Ethyl Alcohol SARS-CoV-2 (PCR) Exam Vital Signs (past 8 hours): - 12/03/21 02:49 12/03/21 03:00 12/03/21 03:00 Temperature Pulse Rate 64 64 Respiratory Rate 15 11 L Blood Pressure 118/71 Pulse Oximetry 94 96 Oxygen Delivery Method 12/03/21 03:57 12/03/21 04:00 12/03/21 04:00 Temperature 98.3 F Pulse Rate 65 Respiratory Rate 12 Blood Pressure 111/59 L Pulse Oximetry 91 Oxygen Delivery Method 12/03/21 04:00 12/03/21 04:18 12/03/21 04:00 Temperature Pulse Rate 66 69 Respiratory Rate 12 14 Blood Pressure Pulse Oximetry 96 95 Oxygen Delivery Method Room Air 12/03/21 05:01 12/03/21 05:01 12/03/21 05:10 Temperature Pulse Rate 63 58 L Respiratory Rate 11 L 11 L Blood Pressure 133/64 Pulse Oximetry 90 L 96 Oxygen Delivery Method 12/03/21 06:00 12/03/21 06:00 12/03/21 06:12 Temperature Pulse Rate 59 L 60 Respiratory Rate 14 12 Blood Pressure 114/54 L Pulse Oximetry 93 93 Oxygen Delivery Method 12/03/21 07:00 12/03/21 07:00 12/03/21 08:00 Temperature Pulse Rate 59 L Respiratory Rate 7 L Blood Pressure 99/59 L 112/66 Pulse Oximetry 92 Oxygen Delivery Method 12/03/21 08:00 12/03/21 09:09 12/03/21 09:00 Temperature Pulse Rate 60 69 Respiratory Rate 12 16 Blood Pressure Pulse Oximetry 94 97 Oxygen Delivery Method Room Air 12/03/21 09:01 12/03/21 10:00 12/03/21 10:00 Temperature Pulse Rate 77 Respiratory Rate 11 L Blood Pressure 140/61 102/57 L Pulse Oximetry 97 Oxygen Delivery Method Oxygen Delivery Method Room Air Quality TeleICU VTE Deep Vein Thrombosis/Pulmonary Embolism Present on Admission: Yes Assessment & Plan Time Spent With Patient Critical Care time: I spent a total of [] minutes of critical care time on this patient's care today; this time is exclusive of procedural time.
[2021-12-03] MEDS: METOPROLOL IR 25 MG TABLET 12.5 MG PO (11:56)
[2021-12-03] MEDS: ONDANSETRON 4 MG/2 ML INJ IV (13:15)
--- NOTE | 2021-12-03 14:37 | PM.PN.1 ---
Subjective Subjective Interval history: pt is awake, alert, not indistress Exam Vital Signs (past 8 hours): - 12/03/21 07:00 12/03/21 07:00 12/03/21 08:00 Pulse Rate 59 L Respiratory Rate 7 L Blood Pressure 99/59 L 112/66 Pulse Oximetry 92 Oxygen Delivery Method 12/03/21 08:00 12/03/21 09:09 12/03/21 09:00 Pulse Rate 60 69 Respiratory Rate 12 16 Blood Pressure Pulse Oximetry 94 97 Oxygen Delivery Method Room Air 12/03/21 09:01 12/03/21 10:00 12/03/21 10:00 Pulse Rate 77 Respiratory Rate 11 L Blood Pressure 140/61 102/57 L Pulse Oximetry 97 Oxygen Delivery Method 12/03/21 11:00 12/03/21 11:00 12/03/21 12:00 Pulse Rate 79 Respiratory Rate 23 Blood Pressure 122/68 132/72 Pulse Oximetry 97 Oxygen Delivery Method 12/03/21 12:00 12/03/21 13:00 12/03/21 13:01 Pulse Rate 57 L 68 Respiratory Rate 10 L 27 H Blood Pressure 135/75 Pulse Oximetry 96 98 Oxygen Delivery Method 12/03/21 14:00 12/03/21 14:00 Pulse Rate 57 L Respiratory Rate 7 L Blood Pressure 108/68 Pulse Oximetry 95 Oxygen Delivery Method Oxygen Delivery Method Room Air Narrative Exam Narrative: [place] [address] History & Physical Report Patient: Zacarias Webster MR#: [id number] : 1955 Acct:[id number] Age/Sex: 66 / M ? Date of Service: 12/02/21 Provider:?Thomas Fuentes History of Present Illness History of Present Illness Chief complaint: ETOH W/D, wanting Detox Narrative: withdrawal ETOH The patient is 66-year-old male with h/o polysubstance abuse and multiple admissions in the past presents with ETOH withdrawal symptoms to ER.? He is requesting help with alcohol detox. He had in the past a admissions with delirium tremens, hypomagnesemia, atrial fibrillation and nonsustained ventricular tachycardia.?he has a h/o? gallstone pancreatitis, cholangitis, Klebsiella bacteremia with alcohol detox complications.? He drinks about 750 ml vodka daily.He denies chest pain, shortness of breath, nausea, vomiting, diarrhea, denies recent traveling, sick contacts. he has a poor memory and on my rounding alert awake but remembered only name and place . Patient History Medical History?(Updated 12/02/21 @ 16:34 by Annette Isabel MD) Alcohol use disorder, severe, in early remission Alcohol withdrawal Alcoholism Cirrhosis Hypertension Major depression Surgical History?(Updated 12/02/21 @ 16:34 by Annette Isabel MD) H/O rhinoplasty History of fasciotomy 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 S/P cholecystectomy Family & Social History Family History? Unknown CancerSister Alcohol dependenceMother?? Cardiac arrest Social History: household members ? none? Safety & Behavioral: Feels Safe in Current ? Yes ? Environment ? Been Physically Hurt or ? No? Threatened By a Person? Suicidal Ideation Description? None? Suicide Plan Description? No Plan ? Tobacco & Substance use: Smoking Status? Former smoker ? alcohol intake? current ? alcohol intake frequency? 3 or more drinks per day? Substance Use Type? does not use? Meds Home Medications and Allergies Home Medications ?Medication ?Instructions ?Recorded ?Confirmed ?Type tamsulosin 0.4 mg capsule (Flomax) 0.8 mg PO QPM #0 caps 06/23/19 09/14/21 History cholecalciferol (vitamin D3) 25 4,000 unit PO DAILY 10/11/19 09/14/21 History mcg (1,000 unit) capsule ? multivitamin (Daily Multi-Vitamin 1 tab PO QAM 10/11/19 09/14/21 History tablet) ? omeprazole 20 mg capsule,delayed 20 mg PO QAM 10/11/19 09/14/21 History release ? vitamin B complex 1 tab PO DAILY 10/11/19 09/14/21 History testosterone cypionate 200 mg/mL 200 mg IM Q4W 01/03/21 09/14/21 History intramuscular oil ? folic acid 1 mg tablet 1 mg PO DAILY #120 tabs 05/12/21 09/14/21 Rx thiamine mononitrate (vit B1) 100 100 mg PO DAILY #60 tabs 05/12/21 09/14/21 Rx mg tablet ? melatonin 10 mg capsule 20 mg PO BEDTIME PRN sleep 07/09/21 09/14/21 History naltrexone 50 mg tablet 50 mg PO DAILY #30 tabs 08/12/21 09/14/21 Rx trazodone 100 mg tablet 100 mg PO BEDTIME PRN Insomnia #30 08/15/21 09/14/21 Rx ? tabs ? ? ? L.acidophilus-L.bulgar-B.bifid-S.thermoph 1 tab PO DAILY 09/11/21 09/14/21 History 1 billion cell-250 mg tablet ? (Bacid) ? alprazolam 0.25 mg tablet 0.25 mg PO PRN PRN Anxiety 09/11/21 09/14/21 History magnesium 500 mg tablet 500 mg PO DAILY 09/11/21 09/14/21 History methocarbamol 750 mg tablet 750 mg PO PRN PRN Pain (Scale 09/11/21 09/14/21 History ? Score 1-3) ? ? ? sucralfate 1 gram tablet 1 g PO BID 09/11/21 09/14/21 History Allergies Allergy/AdvReac Type Severity Reaction Status Date / Time hydrochlorothiazide Allergy Severe Anaphylaxis Verified 11/06/21 13:31 [HYDROCHLOROTHIAZIDE] ? lisinopril [LISINOPRIL] Allergy Severe Anaphylaxis Verified 11/06/21 13:31 Review of Systems Review of Systems ROS: Yes All systems reviewed with the patient and are negative except as otherwise documented Eyes Eyes: Reports as per HPI ENT Ears, Nose, Mouth, and Throat: Yes as per HPI Cardiovascular Cardiovascular: Reports as per HPI Respiratory Respiratory: Reports as per HPI Gastrointestinal Gastrointestinal: Reports as per HPI Genitourinary Genitourinary: Reports as per HPI Musculoskeletal Musculoskeletal: Reports as per HPI Integumentary/Breasts Skin/Breast: Reports as per HPI Neurologic Neurologic: Reports as per HPI Psychiatric Psychiatric: Reports as per HPI Exam Vital Signs (past 8 hours): - ? 12/02/21 14:32 Temperature 98.4 F Pulse Rate 99 H Respiratory Rate 20 Blood Pressure 147/88 H Pulse Oximetry 99 Oxygen Delivery Method Room Air Oxygen Delivery Method? Room Air? Const General: cooperative and well developed Orientation: alert, awake and oriented x3 HENMT Head: normal to inspection Nose: external nose normal Mouth: oral mucosae normal Eyes Pupils: PERRL EOM: EOM intact bilaterally Neck Neck: normal visual inspection and full ROM Chest Chest: normal inspection of the chest Resp Auscultation: clear to auscultation bilaterally Cardio Rate: regular rate Rhythm: regular rhythm GI Inspection: normal to inspection Palpation: no hepatosplenomegaly Auscultation: normal bowel sounds Skin General: no rashes or lesions noted Neuro General: patient alert, patient awake, patient oriented x3, moves all extremities and no focal motor deficits Speech: speech normal Extrem General: normal to inspection, full ROM and no pedal edema Psych Appearance: grossly normal Objective Labs Result Diagrams: 12/03/21 04:10 12/03/21 04:10 Labs: Laboratory Results - last 24 hr 12/02/21 12/02/21 12/02/21 14:52 16:55 17:55 WBC 3.0 L RBC 3.98 L Hgb 12.5 L Hct 36.5 L MCV 91.6 MCH 31.4 MCHC 34.2 RDW 17.9 H Plt Count 111 L Neut % (Auto) 65.5 Lymph % (Auto) 26.3 Fallon % (Auto) 7.0 Eos % (Auto) 0.0 L Baso % (Auto) 1.2 Neut # (Auto) 2000 Lymph # (Auto) 800 L Fallon # (Auto) 200 Eos # (Auto) 0 Baso # (Auto) 0 Sodium Potassium Chloride Carbon Dioxide BUN Creatinine Estimated GFR BUN/Creatinine Ratio Glucose Calcium Total Bilirubin AST ALT Alkaline Phosphatase Total Protein Albumin Globulin Albumin/Globulin Ratio TSH Free T4 Nasal Screen MRSA (PCR) Salicylates U Opiates 300ng/mL cut Negative Ur Oxycodone Screen Negative Urine Methadone Screen Negative Acetaminophen Ur Barbiturates Screen Negative U Tricyclic Antidepress Negative Ur Phencyclidine Scrn Negative Ur Amphetamines Screen Negative U Methamphetamines Scrn Negative Ur MDMA Scrn (Ecstasy) Negative U Benzodiazepines Scrn Positive H Urine Cocaine Screen Negative U Marijuana (THC) Screen Negative Ethyl Alcohol SARS-CoV-2 (PCR) Negative 12/02/21 12/02/21 12/02/21 17:55 17:55 20:00 WBC RBC Hgb Hct MCV MCH MCHC RDW Plt Count Neut % (Auto) Lymph % (Auto) Fallon % (Auto) Eos % (Auto) Baso % (Auto) Neut # (Auto) Lymph # (Auto) Fallon # (Auto) Eos # (Auto) Baso # (Auto) Sodium 135 L Potassium 4.1 Chloride 101 Carbon Dioxide 30 BUN 14 Creatinine 0.66 Estimated GFR > 60 BUN/Creatinine Ratio 21.2 Glucose 113 H Calcium 8.8 Total Bilirubin 1.2 AST 51 ALT 22 Alkaline Phosphatase 89 Total Protein 6.4 Albumin 3.3 L Globulin 3.1 Albumin/Globulin Ratio 1.1 TSH 0.518 Free T4 0.88 Nasal Screen MRSA (PCR) Positive for mrsa H Salicylates < 1.0 U Opiates 300ng/mL cut Ur Oxycodone Screen Urine Methadone Screen Acetaminophen < 10 Ur Barbiturates Screen U Tricyclic Antidepress Ur Phencyclidine Scrn Ur Amphetamines Screen U Methamphetamines Scrn Ur MDMA Scrn (Ecstasy) U Benzodiazepines Scrn Urine Cocaine Screen U Marijuana (THC) Screen Ethyl Alcohol < 10 SARS-CoV-2 (PCR) 06/21/22 06/21/22 04:10 04:10 WBC 2.5 L RBC 3.42 L Hgb 10.7 L Hct 31.5 L MCV 91.9 MCH 31.3 MCHC 34.1 RDW 17.5 H Plt Count 83 L Neut % (Auto) 41.4 L D Lymph % (Auto) 46.2 H Fallon % (Auto) 8.8 Eos % (Auto) 1.9 L Baso % (Auto) 1.7 Neut # (Auto) 1000 L Lymph # (Auto) 1200 Fallon # (Auto) 200 Eos # (Auto) 0 Baso # (Auto) 0 Sodium 134 L Potassium 3.5 Chloride 102 Carbon Dioxide 30 BUN 14 Creatinine 0.57 L Estimated GFR > 60 BUN/Creatinine Ratio 24.6 H Glucose 82 Calcium 7.9 L Total Bilirubin AST ALT Alkaline Phosphatase Total Protein Albumin Globulin Albumin/Globulin Ratio TSH Free T4 Nasal Screen MRSA (PCR) Salicylates U Opiates 300ng/mL cut Ur Oxycodone Screen Urine Methadone Screen Acetaminophen Ur Barbiturates Screen U Tricyclic Antidepress Ur Phencyclidine Scrn Ur Amphetamines Screen U Methamphetamines Scrn Ur MDMA Scrn (Ecstasy) U Benzodiazepines Scrn Urine Cocaine Screen U Marijuana (THC) Screen Ethyl Alcohol SARS-CoV-2 (PCR) [facility] Medical History (Updated 12/02/21 @ 18:39 by Annette Isabel MD) Alcohol use disorder, severe, in early remission Alcohol withdrawal Alcoholism Cirrhosis Hypertension Major depression Surgical History (Updated 12/02/21 @ 16:34 by Annette Isabel MD) H/O rhinoplasty History of fasciotomy 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 S/P cholecystectomy Family History Unknown Cancer Sister Alcohol dependence Mother Cardiac arrest Social History household members: none Smoking Status: Former smoker alcohol intake: current substance use type: does not use Assessment & Plan Assessment & Plan narrative: Alcohol withdrawal - continue CIWA protocol - continue IVF - continue thiamine, folic acid Polysubstance abuse -counseled Transaminitis secondary to alcohol abuse -trend LFTs Pancytopenia/Thrombocytopenia secondary to alcohol abuse - CBC daily -no anticoagulation DVT prophylaxis: SCD Code status: production floater Spent With Patient Critical Care time: I spent a total of [] minutes of critical care time on this patient's care today; this time is exclusive of procedural time. Quality VTE Deep Vein Thrombosis/Pulmonary Embolism Present on Admission: Yes
--- NOTE | 2021-12-03 14:53 | CM.DPC ---
Discharge assessment note: 66 year old male resting in bed this morning during interview. Patient known to this hospital with multiple admissions/ED visits related to polysubstance intoxication. He states he desires inpatient rehab to detox and become sober. He goes to . He is independent, lives alone with his dog in [facility] and drives. Has appropriate DME as needed. He has relatives (daughter, son in law and ex in [place]). He was seen by ED DAVONTE Camargo on admission yesterday and resources provided. He was admitted with arrythmias and on [facility] protocol for etoh withdrawal, IVFs, vitamins. P: DCP continue to follow. Myriam Carter RN/DCP
[2021-12-03] MEDS: LOPERAMIDE 2 MG CAPSULE PO ×2 (15:55→19:47)
[2021-12-03] MEDS: TAMSULOSIN 0.4 MG CAPSULE 0.8 MG PO (17:45)
--- NOTE | 2021-12-03 20:46 | PM.ICURNDS ---
- :: This patient was seen via real time interactive two-way audiovisual telecommunication. Note: Admitted for alcohol detox and found to have runs of SVT. Started on metoprolol 12.5 mg BID and remains in SR. CIWA score 0. No reported complaints. Stop IVF. Okay to downgrade to telemetry status. Recommend cardiology consultation for arrhythmia evaluation. D/w RN and patient at bedside.
[2021-12-03] MEDS: TRAZODONE 100 MG TABLET PO (21:28)
[2021-12-03] MEDS: FAMOTIDINE 20 MG TABLET PO (21:28)
--- NOTE | 2021-12-03 22:39 | PC.NURSE ---
Addendum entered by Razia De Luna R.N. 12/04/21 06:08: Patient slept well during the night, did not have any more episodes of diarrhea, still need to collect a stool sample to r/o C. dif. Has been SB 52-58 most of the shift. CIWA zero. Original Note: Patient has had 5 liquid BMs since 1900, called and informed BONG Reynolds, see new order to r/o C. dif. Also, informed that patent has been SR-SB 58-60 since change of shift and Metoprolol 12.5mg po, evening dose was held. During evening rounds with Dr. Mckoy, he recommended patient be down graded to telemetry, BONG Reynolds informed of recommendation.
[2021-12-04] VITALS: BP 134/72; PULSE 56; RESP 17; TEMP 36.8; O2SAT 96
[2021-12-04 04:00] VITALS: BP 124/72; PULSE 51; RESP 16; TEMP 36.8; O2SAT 97
[2021-12-04 05:24] LABS: BUN Creatinine Ratio 20.7 (6-22); Blood Urea Nitrogen 12 mg/dL (9-20); Calcium 8.4 mg/dL (8.4-10.2); Carbon Dioxide 26 mmol/L (22-32); Chloride 106 mmol/L (98-107); Estimated Glomerular Filt Rate > 60 mL/min (>60); Glucose 80 mg/dL (80-110); HEMOLYSIS < 15 (0-50); Potassium 3.6 mmol/L (3.4-5.1); Sodium 135 mmol/L (137-145)
[2021-12-04] MEDS: chlordiazePOXIDE 25 MG CAPSULE PO ×2 (06:42→11:34)
[2021-12-04 08:30] VITALS: BP 139/85; PULSE 55; RESP 18; TEMP 36.6; O2SAT 99
[2021-12-04] MEDS: SUCRALFATE 1 GM TABLET PO (09:08)
[2021-12-04] MEDS: FAMOTIDINE 20 MG TABLET PO (09:08)
[2021-12-04] MEDS: THIAMINE 100 MG TABLET PO (09:08)
[2021-12-04] MEDS: MULTIVITAMIN 1 TABLET 1 TAB PO (09:08)
[2021-12-04] MEDS: FOLIC ACID 1 MG TABLET PO (09:08)
--- NOTE | 2021-12-04 20:48 | P.DS_ITS ---
History of Present Illness History of Present Illness Chief complaint: ETOH W/D, wanting Detox Narrative: Per admitting provider. The patient is 66-year-old male with h/o polysubstance abuse and multiple admissions in the past presents with ETOH withdrawal symptoms to ER. He is requesting help with alcohol detox. He had in the past a admissions with delirium tremens, hypomagnesemia, atrial fibrillation and n onsustained ventricular tachycardia.?he has a h/o gallstone pancreatitis, cholangitis, Klebsiella bacteremia with alcohol detox complications.? He drinks about 750 ml vodka daily.He denies chest pain, shortness of breath, nausea, vomiting, diarrhea, denies recent traveling, sick contacts. he has a poor memory and on my rounding alert awake but remembered only name and place. Discharge Providers Provider Date of admission: 12/02/21 16:58 Discharge Date: 12/04/21 Primary care physician: Maria Teresa Talley PA-C Consults: 12/02/21 14:37 Consult to [facility] [place] Stat Comment: 12/02/21 16:56 Consult to Tele-research & analytics manager Routine Comment: Consulting Provider: Carlos [employer] Reason for consultation: Clinical Social Work Aide services Discharge provider: Yousif Hoff MD Summary Hospital Course Discharge Diagnosis: 1. Alcohol abuse 2. Alcohol withdrawal 3. Transaminitis 4. Thrombocytopenia Hospital Course: Mr. Webster was admitted to the hospital with alcohol withdrawal. He has many presentations to the hospital for the same issue. He was feeling improved on CIWA protocol. He was given a script for a few more days of librium. He already has outpatient resources and declined further resources in the hospital. He felt improved and no longer withdrawing on day of discharged and was requesting to go home. Exam Vital Signs (past 8 hours): Oxygen Delivery Method Room Air Oxygen Flow Rate 0 Narrative Exam Narrative: GEN: no acute distress CV: regular rate and rhythm, no murmurs PULM: clear bilaterally ABD: soft, nontender, nondistended, no organomegaly Objective Labs Result Diagrams: 12/03/21 04:10 12/04/21 04:20 [facility] Medical History (Updated 12/02/21 @ 18:39 by Annette Isabel MD) Alcohol use disorder, severe, in early remission Alcohol withdrawal Alcoholism Cirrhosis Hypertension Major depression Surgical History (Updated 12/02/21 @ 16:34 by Annette Isabel MD) H/O rhinoplasty History of fasciotomy 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 S/P cholecystectomy Family History Unknown Cancer Sister Alcohol dependence Mother Cardiac arrest Social History household members: none Smoking Status: Former smoker alcohol intake: current substance use type: does not use Discharge Plan Discharge Plan Patient Disposition: Home Provider Discharge Comment: Mr. Webster came in to the hospital with alcohol withdrawal. He felt better after treatment and was wanting to go home. He is encouraged to avoid alcohol and to follow up with his PCP. Discharge orders & Medications Prescriptions: New chlordiazepoxide HCl 25 mg Capsule 25 mg PO Q8HR Qty: 6 0RF Rx Instructions: take a pill 3x Thu, 2x , 1x Thursday for alcohol withdrawal Continued trazodone 100 mg tablet 100 mg PO BEDTIME PRN (Reason: Insomnia) Qty: 30 5RF Rx Instructions: Continue 100 mg by mouth at bedtime multivitamin [Daily Multi-Vitamin] Tablet 1 tab PO QAM vitamin B complex Tablet 1 tab PO DAILY cholecalciferol (vitamin D3) 25 mcg (1,000 unit) capsule 4,000 unit PO DAILY omeprazole 20 mg capsule,delayed release(DR/EC) 40 mg PO BID tamsulosin [Flomax] 0.4 mg capsule 0.8 mg PO QPM Qty: 0 naltrexone 50 mg tablet 50 mg PO DAILY Qty: 30 3RF testosterone cypionate 200 mg/mL oil 200 mg IM Q4W Label Comments: inject 1 milliliter intramuscularly every 2 weeks folic acid 1 mg Tablet 1 mg PO DAILY Qty: 120 0RF thiamine mononitrate (vit B1) 100 mg Tablet 100 mg PO DAILY Qty: 60 0RF melatonin 10 mg capsule 20 mg PO BEDTIME PRN (Reason: sleep) Bacid 1 billion cell- 250 mg tablet 1 tab PO DAILY magnesium 500 mg Tablet 500 mg PO DAILY sucralfate 1 gram tablet 1 g PO BID alprazolam 0.25 mg tablet 0.25 mg PO PRN PRN (Reason: Anxiety) methocarbamol 750 mg tablet 750 mg PO PRN PRN (Reason: Pain (Scale Score 1-3)) Follow up/Referrals: Maria Teresa Talley PA-C [Primary Care Provider] - Diet/Activity/Treatments Diet: Regular Visit Report/Discharge Packet Stand Alone Forms: Naloxone Standing Order WADOH Discharge Data Primary Care Provider: Maria Teresa Talley Quality VTE Deep Vein Thrombosis/Pulmonary Embolism Present on Admission: Yes
== END 2021-12-04 11:48 | disposition home or self-care (01) | DRG 897 ==
LOC: ED 16:55 → ICU 18:39 → AC 12-03 15:50
PROVIDERS: Nurse Practitioner Family; Admitting Provider Internal Medicine; Emergency Provider Emergency Medicine; PCP Student in an Organized Health Care Education/Training Program; Referring Provider Emergency Medicine; Visit Provider Internal Medicine
DX: F10.139 Alcohol abuse with withdrawal, unspecified (principal); I47.2 Ventricular tachycardia; D61.818 Other pancytopenia; Y90.0 Blood alcohol level of less than 20 mg/100 ml; R19.7 Diarrhea, unspecified; F32.A Depression, unspecified; N40.0 Benign prostatic hyperplasia without lower urinary tract symptoms; Z20.822 Contact with and (suspected) exposure to COVID-19; Z87.891 Personal history of nicotine dependence
CPT/HCPCS: 36415; 71045; 80048; 80053; 80305; 80320; 80329; 84439; 84443; 85025; 87635; 87797; 93005; 96365; 96367; 96375; 96376; 99284; 99291; C9803; A9270; G0480; J0696; J1644; J2060; J2405; J2560; J3475

== ENCOUNTER 2022-11-02 14:53 | Emergency (ER) | payer MEDICARE, OTHER, SELFPAY ==
[2022-11-02] VITALS (18 sets, daily range): BP systolic 89–119; BP diastolic 46–66; PULSE 70–92; RESP 15–23; TEMP 36.4; O2SAT 94–100; BMI 36.0
--- NOTE | 2022-11-02 14:58 | DI.CT.S_ITS ---
PROCEDURE: CT FACIAL BONES WO CON INDICATIONS: fall with obvious injury R face/eye TECHNIQUE: Noncontrast 2.5 mm thick axial images acquired from the mandible through the frontal sinuses, with coronal and sagittal reformatting. For radiation dose reduction, the following was used: automated exposure control, adjustment of mA and/or kV according to patient size. COMPARISON: None. FINDINGS: Image quality: Excellent. Bones and teeth: There is a mildly displaced right orbital floor fracture. Orbital floor is displaced roughly 4 mm inferiorly. Sinus flores show no fracture or deformity. Nasal bones and septum are intact. Visualized portions of the mandible demonstrate no fractures or subluxation. Zygomatic arches are intact. Pterygoid plates are intact. Visualized portions of the skull base and auditory canals are intact. Sinuses: Paranasal sinuses are aerated, without fluid levels, mucosal thickening, or mucoceles. Mastoid air cells are aerated. Soft tissues: Right periorbital hematoma. Deformity of the right globe. High density material within the right globe. Fat stranding within the right intraconal fat. No enlarged lymph nodes. No soft tissue lacerations or debris. Vascular: Visualized vascular structures appear normal in the absence of contrast. Bony vascular foramina and canals are intact. IMPRESSION: 1. Right orbital floor blow-out fracture. 2. Right orbital rupture with intra orbital hematoma. Dictated by: Rajni Coe M.D. on 11/02/2022 at 14:30 Approved by: Rajni Coe M.D. on 11/02/2022 at 14:32
--- NOTE | 2022-11-02 14:59 | DI.CT.S_ITS ---
PROCEDURE: CT HEAD/BRAIN WO CON INDICATIONS: Trauma TECHNIQUE: Noncontrast 4.5 mm thick angled axial sections acquired from the foramen magnum to the vertex, with coronal and sagittal reformats. For radiation dose reduction, the following was used: automated exposure control, adjustment of mA and/or kV according to patient size. COMPARISON: [facility], CT, CT HEAD/BRAIN WO CON, 01/09/2021, 9:52. FINDINGS: Image quality: Excellent. CSF spaces: Basal cisterns are patent. No extra-axial fluid collections. The ventricles are symmetric in size and shape. Brain: No intracranial bleeds or masses. There is cerebral volume loss for age, with resultant ventricular and sulcal prominence. There are periventricular and deep white matter chronic small vessel ischemic changes. There is intracranial internal carotid artery atherosclerosis. Skull and face: Right periorbital hematoma. Deformity of the right globe. Fat stranding within the right intraconal fat. High density material dependently within the right globe. Calvarium and visualized facial bones appear intact, without suspicious lesions. Sinuses: Visualized sinuses and mastoids are clear. IMPRESSION: 1. No acute intracranial abnormality. 2. Right orbital rupture and intra orbital hemorrhage. Dictated by: Rajni Coe M.D. on 11/02/2022 at 14:29 Approved by: Rajni Coe M.D. on 11/02/2022 at 14:30
--- NOTE | 2022-11-02 14:59 | DI.CT.S_ITS ---
PROCEDURE: CT CERVICAL SPINE WO CON INDICATIONS: Trauma TECHNIQUE: Noncontrast 3 mm thick sections acquired from the skull base to the T4 level. Sagittal and coronal reformats were then constructed. For radiation dose reduction, the following was used: automated exposure control, adjustment of mA and/or kV according to patient size. COMPARISON: [facility], CT, CT CERVICAL SPINE WO CON, 06/17/2020, 22:32. FINDINGS: Image quality: Excellent. Bones: No cervical spine fractures or dislocations. Right orbital floor blow-out fracture. Visualized superior ribs are intact. Multilevel degenerative disc and facet disease. Soft tissues: Prevertebral soft tissues are normal in thickness. No paravertebral hematomas. No apical pneumothoraces. 3 mm subpleural nodule within the left upper lobe laterally, as before. IMPRESSION: 1. Rightward orbital floor blow-out fracture. 2. No acute cervical spine fracture. No osseous lesion. If symptoms and/or clinical suspicion for pathology persist, further assessment with MRI or bone scan may be helpful for further assessment. 3. No change in left upper lobe pulmonary nodule. Dictated by: Rajni Coe M.D. on 11/02/2022 at 14:32 Approved by: Rajni Coe M.D. on 11/02/2022 at 14:34
--- NOTE | 2022-11-02 15:01 | ED.GENADULT ---
HPI - General Adult General Chief complaint: Fall Stated complaint: unwit GLF Time Seen by Provider: 11/02/22 14:58 History of Present Illness HPI narrative: 67-year-old male former smoker and heavy drinker presents by EMS for evaluation of injury suffered secondary to a ground level fall just prior to his arrival. He states that he has been drinking heavily and fell but does not know why, he complains of right-sided head and face injury but is otherwise well. Denies any numbness, tingling or weakness. He denies any trouble with speech. He denies any neck pain, chest pain or trouble breathing. Denies any upper or lower extremity pain or injury. He has significant swelling in and around his right eye and states he has no ability to see from this eye. He is activated as a modified trauma given age and suspected injury Related Data Home Medications Medication Instructions Recorded Confirmed tamsulosin 0.4 mg capsule (Flomax) 0.8 mg PO QPM #0 caps 06/23/19 10/16/22 cholecalciferol (vitamin D3) 25 4,000 unit PO DAILY 10/11/19 10/16/22 mcg (1,000 unit) capsule multivitamin (Daily Multi-Vitamin 1 tab PO QAM 10/11/19 10/16/22 tablet) omeprazole 20 mg capsule,delayed 40 mg PO BID 10/11/19 10/16/22 release vitamin B complex 1 tab PO DAILY 10/11/19 10/16/22 testosterone cypionate 200 mg/mL 200 mg IM Q4W 01/03/21 10/16/22 intramuscular oil melatonin 10 mg capsule 20 mg PO BEDTIME PRN sleep 07/09/21 10/16/22 alprazolam 0.25 mg tablet 0.25 mg PO PRN PRN Anxiety 09/11/21 10/16/22 methocarbamol 750 mg tablet 750 mg PO PRN PRN Pain (Scale 09/11/21 10/16/22 Score 1-3) sucralfate 1 gram tablet 1 g PO BID 09/11/21 10/16/22 metoprolol succinate 25 mg 12.5 mg PO DAILY 02/20/22 10/16/22 tablet,extended release 24 hr Previous Rx's Medication Instructions Recorded folic acid 1 mg tablet 1 mg PO DAILY #120 tabs 05/12/21 thiamine mononitrate (vit B1) 100 100 mg PO DAILY #60 tabs 05/12/21 mg tablet naltrexone 50 mg tablet 50 mg PO DAILY #30 tabs 02/13/22 trazodone 100 mg tablet 150 mg PO BEDTIME PRN Insomnia #60 02/13/22 tabs Allergies Allergy/AdvReac Type Severity Reaction Status Date / Time hydrochlorothiazide Allergy Severe Anaphylaxis Verified 11/02/22 14:59 [HYDROCHLOROTHIAZIDE] lisinopril [LISINOPRIL] Allergy Severe Anaphylaxis Verified 11/02/22 14:59 Review of Systems Review of Systems Narrative: GENERAL: see HPI HEENT: see HPI RESPIRATORY: Denies dyspnea, cough, wheezing, hemoptysis, sputum. CARDIOVASCULAR: Denies chest pain, palpitations, orthopnea, edema, GASTROINTESTINAL: Denies nausea, vomiting, abdominal pain, diarrhea, constipation, melena. : Denies dysuria, frequency, incontinence, hematuria, urinary retention. MUSCULOSKELETAL: denies weakness, joint pain, or bony pain SKIN: Denies rash, skin lesions, or other NEUROLOGIC: Denies weakness, headache, numbness, change in speech, confusion, seizures, incoordination. PSYCHIATRIC: No concerning psychosocial issues. 12 point review of systems is negative except for those stated above Patient History Medical History Alcohol use disorder, severe, in early remission Alcohol withdrawal Alcoholism Cirrhosis Hypertension Major depression Surgical History H/O rhinoplasty History of fasciotomy 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 S/P cholecystectomy Family History Unknown Cancer Sister Alcohol dependence Mother Cardiac arrest Social History household members: none Smoking Status: Former smoker alcohol intake: current substance use type: does not use Smoking Status: Former smoker alcohol intake frequency: 3 or more drinks per day Alcohol type: hard liquor Substance Use Type: does not use Exam Narrative Exam Narrative: GENERAL: [67] year old patient appears stated age. Well-developed patient, in mild distress. HEAD: Atraumatic. Normocephalic. Swelling around R eye. NO other hematoma, abrasion, laceration or evidence of depressed skull fracture EYES: EOMI limited in R eye. R pupil large irregular, not reactive, , w/hyphema. Exopthalmos of R eye, with circumferential subconjunctival hemorrhage, moderate swelling in periorbital region. Patient cannot see motion of fingers but does minimally sense the bright light on some level. ENT: Nose without bleeding, purulent drainage. Throat without erythema, tonsillar hypertrophy or exudate. Airway patent. NECK: Trachea midline. Non tender CARDIOVASCULAR: Regular rate and rhythm without murmurs, gallops, or rubs. RESPIRATORY: Clear to auscultation. Breath sounds equal bilaterally. No wheezes, rales, or rhonchi. GASTROINTESTINAL: Abdomen soft, non-tender, nondistended. EXTREMITIES: No edema or joint tenderness. BACK: Nontender without deformity or crepitance. No flank tenderness. NEURO: AOx3. SKIN: No rash or erythema of visible areas Initial Vital Signs Initial Vital Signs: Vital Signs Temperature 97.6 F 11/02/22 14:59 Pulse Rate 80 11/02/22 14:59 Respiratory Rate 16 11/02/22 14:59 Blood Pressure 108/54 L 11/02/22 14:59 Pulse Oximetry 98 11/02/22 14:59 Oxygen Delivery Method Room Air 11/02/22 14:59 Course Orders Ordered: ED Orders 11/02/22 14:58 CT facial bones wo con Stat Urine Drug Screen, Rapid Stat 11/02/22 14:59 CT cervical spine wo con Stat CT head/brain wo con Stat 11/02/22 15:01 Urine Drug Screen, Rapid Stat 11/02/22 15:37 Complete Blood Count AUTO DIFF Stat Comprehensive Metabolic Panel Stat Ethanol (ETOH) Stat Lactate (Lactic Acid) Stat Lipase Stat PTT Partial Thromboplastin Chase Stat Prothrombin Time INR Stat 11/02/22 15:53 COVID19 -Nasal RAPID Stat 11/02/22 16:12 Type and Screen Stat Vancomycin HCl/Dextrose (Vancomycin) 2,000 mg in 400 mls @ 200 mls/hr IV NOW ONE Stop: 11/02/22 17:42 Discontinued Medications Diphtheria/Tetanus/Acell Pertussis (Tet,Diph,Pertuss(Acell),Vac/Pf 0.5 Ml Syringe) 0.5 ml IM .ONCE ONE Stop: 11/02/22 14:59 Last Admin: 05/21/23 15:58 Dose: 0.5 ml Ceftazidime 2 gm/ Sodium (Chloride) 100 mls @ 200 mls/hr IV NOW ONE Stop: 11/02/22 15:44 Last Admin: 11/02/22 16:16 Dose: 200 mls/hr Vital Signs Vital signs: Vital Signs - 8 hr 11/02/22 14:59 11/02/22 15:00 11/02/22 15:00 Temperature 97.6 F Pulse Rate 80 70 Respiratory Rate 16 16 Blood Pressure 108/54 L 106/57 L Pulse Oximetry 98 98 Oxygen Delivery Method Room Air 11/02/22 15:15 11/02/22 15:19 11/02/22 15:19 Temperature Pulse Rate 78 70 Respiratory Rate 17 Blood Pressure 89/46 L Pulse Oximetry 98 97 Oxygen Delivery Method 11/02/22 15:20 11/02/22 15:20 11/02/22 15:25 Temperature Pulse Rate 75 73 Respiratory Rate 18 21 Blood Pressure 94/50 L Pulse Oximetry 96 96 Oxygen Delivery Method 11/02/22 15:25 11/02/22 15:30 11/02/22 15:31 Temperature Pulse Rate 75 77 Respiratory Rate 20 22 Blood Pressure 95/53 L Pulse Oximetry 98 99 Oxygen Delivery Method 11/02/22 15:31 11/02/22 15:35 11/02/22 15:35 Temperature Pulse Rate 74 Respiratory Rate 19 Blood Pressure 117/66 110/60 Pulse Oximetry 100 Oxygen Delivery Method 11/02/22 15:40 11/02/22 15:40 11/02/22 15:45 Temperature Pulse Rate 71 Respiratory Rate 15 Blood Pressure 111/60 105/62 Pulse Oximetry 94 Oxygen Delivery Method 11/02/22 15:45 11/02/22 16:00 Temperature Pulse Rate 76 75 Respiratory Rate 21 23 Blood Pressure Pulse Oximetry 95 96 Oxygen Delivery Method Room Air Medical Decision Making Lab Data 11/02/22 15:37 11/02/22 15:37 Labs: Lab Results 11/02/22 11/02/22 11/02/22 Range/Units 15:37 15:37 15:37 PT 13.3 H (10.1-12.7) SECONDS INR 1.2 (0.9-1.3) APTT 27 (26-36) SECONDS Sodium 144 (137-145) mmol/L Potassium 3.9 (3.4-5.1) mmol/L Chloride 108 H (98-107) mmol/L Carbon Dioxide 27 (22-32) mmol/L BUN 14 (9-20) mg/dL Creatinine 0.73 (0.66-1.25) mg/dL Estimated GFR > 60 (>60) mL/min BUN/Creatinine Ratio 19.2 (6-22) Glucose 96 (80-110) mg/dL Lactate 3.0 H (0.7-2.1) mmol/L Calcium 8.4 (8.4-10.2) mg/dL Total Bilirubin 0.3 (0.2-1.3) mg/dL AST 40 (17-59) IU/L ALT 21 (<50) IU/L Alkaline Phosphatase 95 (38-126) U/L Total Protein 7.0 (6.3-8.2) g/dL Albumin 3.6 (3.5-5.0) g/dL Globulin 3.4 (1.7-4.1) g/dL Albumin/Globulin Ratio 1.1 (1.0-2.8) Lipase 63 (23-300) U/L Ethyl Alcohol 393 H ( - 10) mg/dL // Range/Units 15:37 PT (10.1-12.7) SECONDS INR (0.9-1.3) APTT (26-36) SECONDS Sodium (137-145) mmol/L Potassium (3.4-5.1) mmol/L Chloride (98-107) mmol/L Carbon Dioxide (22-32) mmol/L BUN (9-20) mg/dL Creatinine (0.66-1.25) mg/dL Estimated GFR (>60) mL/min BUN/Creatinine Ratio (6-22) Glucose (80-110) mg/dL Lactate (0.7-2.1) mmol/L Calcium (8.4-10.2) mg/dL Total Bilirubin (0.2-1.3) mg/dL AST (17-59) IU/L ALT (<50) IU/L Alkaline Phosphatase (38-126) U/L Total Protein (6.3-8.2) g/dL Albumin (3.5-5.0) g/dL Globulin (1.7-4.1) g/dL Albumin/Globulin Ratio (1.0-2.8) Lipase (23-300) U/L Ethyl Alcohol Cancelled ( - 10) mg/dL MDM Narrative Medical decision making narrative: [67] year old patient presents withInjury suffered from ground level fall just prior to arrival Multiple etiologies for patient's symptoms considered including, but not limited to: [ ocular injury, facial fractures, intra cranial hemorrhage versus other] Prior Charts reviewed in our EMR Primary Historian: patient Labs reviewed and interpreted by myself: no significant abnormalities requiring significant intervention Imaging reviewed: CT of facial bones notes globe rupture with intra-ocular hematoma and blow out fracture. No intracranial hemorrhage, C-spine intact. Consultations: Discussed with Dr. Power ([facility] [place] [facility] Recommends moxifloxacin if available, I have discussed with pharmacy and we do not have this available, we will continue with the vancomycin and ceftazidime for now patient with significant ocular injury requiring immediate intervention. Patient's tetanus has been updated, antibiotics ordered, patient in C-spine precautions. Labs otherwise unremarkable. patient will be flown by [facility] given need for rapid transport and distance between [facility] and [facility]. Both patient and significant other at the bedside understand and agree with the diagnosis and plan Critical Care Time Critical Care Time Critical Care Time: Yes Total Critical Care Time: 30 Attestation: The high probability of a clinically significant, sudden or life threatening deterioration of the [NV/Oph] system(s) required my full and direct attention, intervention and personal management. The aggregate critical care time was [30] minutes. This time is in addition to time spent performing reported procedures but includes the following: [x] Data Review and interpretation [x] Patient assessment and monitoring of vital signs [x] Documentation [x] Medication orders and management Discharge Plan [facility] Impression: Rupture of globe, Blow-out fracture, Alcohol abuse Prescriptions: No Action multivitamin [Daily Multi-Vitamin] Tablet 1 tab PO QAM vitamin B complex Tablet 1 tab PO DAILY cholecalciferol (vitamin D3) 25 mcg (1,000 unit) capsule 4,000 unit PO DAILY omeprazole 20 mg capsule,delayed release(DR/EC) 40 mg PO BID trazodone 100 mg tablet 150 mg PO BEDTIME PRN (Reason: Insomnia) Qty: 60 5RF naltrexone 50 mg tablet 50 mg PO DAILY Qty: 30 3RF tamsulosin [Flomax] 0.4 mg capsule 0.8 mg PO QPM Qty: 0 metoprolol succinate 25 mg Tablet Extended Release 24 Hr 12.5 mg PO DAILY testosterone cypionate 200 mg/mL oil 200 mg IM Q4W Patient Comments: inject 1 milliliter intramuscularly every 2 weeks folic acid 1 mg Tablet 1 mg PO DAILY Qty: 120 0RF thiamine mononitrate (vit B1) 100 mg Tablet 100 mg PO DAILY Qty: 60 0RF melatonin 10 mg capsule 20 mg PO BEDTIME PRN (Reason: sleep) sucralfate 1 gram tablet 1 g PO BID alprazolam 0.25 mg tablet 0.25 mg PO PRN PRN (Reason: Anxiety) methocarbamol 750 mg tablet 750 mg PO PRN PRN (Reason: Pain (Scale Score 1-3)) Referrals: Maria Teresa Talley, [facility] [Primary Care Provider] -
[2022-11-02 15:52] LABS: Add Manual Diff / Slide Review NO; Basophils Absolute Auto 0 /uL (0-100); Basophils Percent Auto 0.9 % (0-2); Eosinophils Absolute Auto 100 /uL (0-450); Eosinophils Percent Auto 2.2 % (2-4); Hematocrit 41.5 % (41-53); Hemoglobin 14.1 g/dL (13.5-17.5); Lymphocytes Absolute Auto 2000 /uL (1100-4500); Lymphocytes Percent Auto 53.2 % (25-40); Mean Corpuscular HGB Conc 34.1 % (30-36); Mean Corpuscular Hemoglobin 33.1 PG (26-34); Mean Corpuscular Volume 97.1 fL (80-100); Monocytes Absolute Auto 500 /uL (0-900); Monocytes Percent Auto 12.6 % (3-14); Neutrophils Absolute Auto 1100 /uL (1500-7000); Neutrophils Percent Auto 31.1 % (50-75); Platelet Count 187 X10^3/uL (150-400); Red Blood Cell Count 4.28 X10^6/uL (4.5-5.9); Red Cell Distribution Width 14.9 % (11.6-14.8); White Blood Cell Count 3.7 X10^3/uL (4.5-11.0)
[2022-11-02 15:54] LABS: INR 1.2 (0.9-1.3); Prothrombin Time 13.3 SECONDS (10.1-12.7)
[2022-11-02 15:57] LABS: PTT Partial Thromboplastin Tim 27 SECONDS (26-36)
[2022-11-02] MEDS: TET,DIPH,PERTUSS(ACELL),VAC/PF 0.5 ML SYRINGE IM (15:58)
[2022-11-02 16:01] LABS: Alanine Aminotransferase 21 IU/L (<50); Albumin 3.6 g/dL (3.5-5.0); Albumin Globulin Ratio 1.1 (1.0-2.8); Alkaline Phosphatase 95 U/L (38-126); Aspartate Aminotransferase 40 IU/L (17-59); BUN Creatinine Ratio 19.2 (6-22); Bilirubin Total 0.3 mg/dL (0.2-1.3); Blood Urea Nitrogen 14 mg/dL (9-20); Calcium 8.4 mg/dL (8.4-10.2); Carbon Dioxide 27 mmol/L (22-32); Chloride 108 mmol/L (98-107); Estimated Glomerular Filt Rate > 60 mL/min (>60); Globulin 3.4 g/dL (1.7-4.1); Glucose 96 mg/dL (80-110); Lipase 63 U/L (23-300); Potassium 3.9 mmol/L (3.4-5.1); Sodium 144 mmol/L (137-145)
[2022-11-02 16:08] LABS: Ethanol (ETOH) 393 mg/dL; HEMOLYSIS 16 (0-50)
--- NOTE | 2022-11-02 16:24 | PC.NURSE ---
Took patient's yellow colored necklace off that had a cross and dog tag and gave to patient's significant other. Also removed patient's two shirts and gave them to patient's significant other,
[2022-11-02 16:42] LABS: COVID19 -Nasal RAPID Negative (Negative)
[2022-11-02] MEDS: VANCOMYCIN 2,000 MG/400 ML PIGGYBACK 200 MG IV (16:53)
[2022-11-02 17:02] LABS: Appearance Urine UA CLEAR; Bilirubin Urine UA NEGATIVE (NEGATIVE); Color Urine UA YELLOW; Glucose Urine UA NEGATIVE (Negative); Ketones Urine UA TRACE (NEGATIVE); Leukocyte Esterase Urine UA NEGATIVE (NEGATIVE); Nitrite Urine UA NEGATIVE (Negative); Occult Blood Urine UA NEGATIVE (Negative); Protein Urine UA NEGATIVE (Negative); Urobilinogen Urine UA 0.2 E.U./dL (0.2); pH Urine UA 5.5 (4.5-8.0)
[2022-11-02 17:04] LABS: UR Morphine/Opiate cutoff 300 Negative (Negative); Ur Creatinine Normal (Normal); Ur Specific Gravity Normal (Normal); Urine Amphetamines Negative (Negative); Urine Cocaine Negative (Negative); Urine MDMA Negative (Negative); Urine Methamphetamines Negative (Negative); Urine Phencyclidine Negative (Negative); Urine Tetrahydrocannabinol Negative (Negative); Urine pH Normal (Normal)
[2022-11-02 17:05] LABS: Urine Barbiturates Negative (Negative); Urine Benzodiazepines Positive (Negative); Urine Methadone Negative (Negative); Urine Oxycodone Negative (Negative); Urine Tricyclic Antidepressant Negative (Negative)
[2022-11-02 17:08] LABS: Bacteria Urine None Seen; Culture Indicated Urine Cult Not Indicated; Mucus Urine 1+ (Negative); RBC Urine 0-1/HPF (0-5/HPF); WBC Urine 0-1/HPF (0-5/HPF)
[2022-11-02 17:44] LABS: Reflexed Lactate in 2 Hours Y
== END 2022-11-02 17:27 | disposition short-term general hospital (02) ==
PROVIDERS: Emergency Provider Emergency Medicine; PCP Student in an Organized Health Care Education/Training Program
DX: S05.31XA Ocular laceration without prolapse or loss of intraocular tissue, right eye, initial encounter (principal); S02.31XA Fracture of orbital floor, right side, initial encounter for closed fracture; F10.10 Alcohol abuse, uncomplicated; W18.30XA Fall on same level, unspecified, initial encounter; Z23 Encounter for immunization; Z20.822 Contact with and (suspected) exposure to COVID-19
CPT/HCPCS: 36415; 70450; 70486; 72125; 80053; 80305; 80320; 81001; 83605; 83690; 85025; 85610; 85730; 86850; 86900; 86901; 87635; 90471; 96365; 96367; 99284; 99285; C9803; 90715; J0713

== ENCOUNTER 2022-11-10 09:53 | Emergency (ER) | payer MEDICARE, OTHER, SELFPAY ==
[2022-11-10] VITALS (44 sets, daily range): BP systolic 78–134; BP diastolic 49–89; PULSE 51–76; RESP 11–24; TEMP 36.6; O2SAT 90–98; BMI 34.9
--- NOTE | 2022-11-10 10:04 | DI.RAD.S_ITS ---
PROCEDURE: XR CHEST 1V INDICATIONS: chest pain TECHNIQUE: One view of the chest was acquired. COMPARISON: [facility], CR, XR CHEST 1V, 11/10/2018, 16:48. FINDINGS: Surgical changes and devices: None. Lungs and pleura: Lungs are clear. No pleural effusions or pneumothorax. Mediastinum: Mediastinal contours appear normal. Heart size is normal. Bones and chest wall: No suspicious bony lesions. Overlying soft tissues appear unremarkable. IMPRESSION: No acute cardiopulmonary disease. Dictated by: Amanda Gimenez M.D. on 11/10/2022 at 9:53 Approved by: Amanda Gimenez M.D. on 11/10/2022 at 9:53
[2022-11-10 10:12] LABS: INR 1.2 (0.9-1.3); Prothrombin Time 13.4 SECONDS (10.1-12.7)
[2022-11-10 10:14] LABS: PTT Partial Thromboplastin Tim 28 SECONDS (26-36)
[2022-11-10 10:16] LABS: Alanine Aminotransferase 15 IU/L (<50); Albumin Globulin Ratio 0.9 (1.0-2.8); Alkaline Phosphatase 78 U/L (38-126); Aspartate Aminotransferase 22 IU/L (17-59); BUN Creatinine Ratio 25.3 (6-22); Bilirubin Total 0.4 mg/dL (0.2-1.3); Blood Urea Nitrogen 21 mg/dL (9-20); Calcium 8.8 mg/dL (8.4-10.2); Carbon Dioxide 27 mmol/L (22-32); Chloride 105 mmol/L (98-107); Creatine Kinase 25 U/L (55-170); Estimated Glomerular Filt Rate > 60 mL/min (>60); Globulin 3.2 g/dL (1.7-4.1); Glucose 101 mg/dL (80-110); HEMOLYSIS < 15 (0-50); Lipase 33 U/L (23-300); Magnesium 1.7 mg/dL (1.6-2.3); Sodium 136 mmol/L (137-145); Total Protein 6.2 g/dL (6.3-8.2)
[2022-11-10 10:22] LABS: Add Manual Diff / Slide Review NO; Basophils Absolute Auto 0 /uL (0-100); Basophils Percent Auto 0.8 % (0-2); Eosinophils Absolute Auto 100 /uL (0-450); Eosinophils Percent Auto 3.4 % (2-4); Hematocrit 35.6 % (41-53); Lymphocytes Absolute Auto 1700 /uL (1100-4500); Lymphocytes Percent Auto 47.4 % (25-40); Mean Corpuscular HGB Conc 33.6 % (30-36); Mean Corpuscular Hemoglobin 32.6 PG (26-34); Monocytes Absolute Auto 400 /uL (0-900); Monocytes Percent Auto 11.3 % (3-14); Neutrophils Absolute Auto 1300 /uL (1500-7000); Neutrophils Percent Auto 37.1 % (50-75); Platelet Count 172 X10^3/uL (150-400); Red Blood Cell Count 3.67 X10^6/uL (4.5-5.9); Red Cell Distribution Width 14.8 % (11.6-14.8); White Blood Cell Count 3.5 X10^3/uL (4.5-11.0)
[2022-11-10 10:27] LABS: Troponin I < 0.012 ng/mL (0.01-0.034)
[2022-11-10] MEDS: SODIUM CHLORIDE 0.9% 1,000 ML 1000 ML IV (12:00)
--- NOTE | 2022-11-10 12:04 | ED.CHESTPAIN ---
HPI - Chest Pain General Chief Complaint: Chest Pain Stated Complaint: chest pain Time Seen by Provider: 11/10/22 12:04 Source: patient Mode of arrival: EMS Limitations: no limitations Limitations: no limitations History of Present Illness HPI narrative: This is a 67-year-old male former smoker, history of alcoholism, intermittent hypertension and atrial fibrillation but also reported chronic hypotension who had a recent orbital fracture and globe rupture and was transferred to [facility] for repair. Patient presents with complaint of left-sided chest pain. Patient states he has been having pain intermittently since his fall which is expected he states this most recent was a little bit more in the left thoracic area and radiating towards front. He states it is worse with movement, cough sneeze or similar symptoms. Patient states no recurrent passing out episodes. He does not feel short of breath. He has not had any cold cough or congestion. No new swelling in his extremities. He denies nausea or vomiting, no diarrhea constipation, no black or bloody stools. He states he did feel dizzy this morning which is normal he states he normally has low blood pressure. He states he will often take some time seated and then start walking. He states he got very dizzy today and felt like he would maybe pass out. He is on metoprolol he states it was decreased from 25-12.5 mg extended release but he continues to take this because he is had atrial fibrillation and hypertensive issues particularly when he has alcohol withdrawal. He is also on Flomax, naltrexone, Cialis as needed, trazodone, hydroxyzine, Soma and sometimes takes Benadryl as well. He states his last drink was over a week. No tobacco use. He denies any known cardiac issues never had any cardiac stents. He is currently on oral antibiotics as well as 3 eye drops for his right eye, he states he had light perception initially but has no light or vision currently. He is following with Ophthalmology through [facility]. He is not had any recurrent falls. Patient notes he did not appreciate any bruising or skin changes. Related Data Home Medications Medication Instructions Recorded Confirmed tamsulosin 0.4 mg capsule (Flomax) 0.8 mg PO QPM #0 caps 06/23/19 10/16/22 cholecalciferol (vitamin D3) 25 4,000 unit PO DAILY 10/11/19 10/16/22 mcg (1,000 unit) capsule multivitamin (Daily Multi-Vitamin 1 tab PO QAM 10/11/19 10/16/22 tablet) omeprazole 20 mg capsule,delayed 40 mg PO BID 10/11/19 10/16/22 release vitamin B complex 1 tab PO DAILY 10/11/19 10/16/22 testosterone cypionate 200 mg/mL 200 mg IM Q4W 01/03/21 10/16/22 intramuscular oil melatonin 10 mg capsule 20 mg PO BEDTIME PRN sleep 07/09/21 10/16/22 alprazolam 0.25 mg tablet 0.25 mg PO PRN PRN Anxiety 09/11/21 10/16/22 methocarbamol 750 mg tablet 750 mg PO PRN PRN Pain (Scale 09/11/21 10/16/22 Score 1-3) sucralfate 1 gram tablet 1 g PO BID 09/11/21 10/16/22 metoprolol succinate 25 mg 12.5 mg PO DAILY 02/20/22 10/16/22 tablet,extended release 24 hr Previous Rx's Medication Instructions Recorded folic acid 1 mg tablet 1 mg PO DAILY #120 tabs 05/12/21 thiamine mononitrate (vit B1) 100 100 mg PO DAILY #60 tabs 05/12/21 mg tablet naltrexone 50 mg tablet 50 mg PO DAILY #30 tabs 02/13/22 trazodone 100 mg tablet 150 mg PO BEDTIME PRN Insomnia #60 02/13/22 tabs Allergies Allergy/AdvReac Type Severity Reaction Status Date / Time hydrochlorothiazide Allergy Severe Anaphylaxis Verified 11/10/22 09:59 [HYDROCHLOROTHIAZIDE] lisinopril [LISINOPRIL] Allergy Severe Anaphylaxis Verified 11/10/22 09:59 Review of Systems Review of Systems ROS Unobtainable: All systems reviewed & are unremarkable except as noted in HPI and below Patient History Medical History Alcohol use disorder, severe, in early remission Alcohol withdrawal Alcoholism Cirrhosis Hypertension Major depression Surgical History H/O rhinoplasty History of fasciotomy 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 S/P cholecystectomy Family History Unknown Cancer Sister Alcohol dependence Mother Cardiac arrest Social History household members: none Smoking Status: Former smoker alcohol intake: current substance use type: does not use Smoking Status: Former smoker alcohol intake frequency: 3 or more drinks per day Alcohol type: hard liquor Substance Use Type: does not use Exam Narrative Exam Narrative: GENERAL: Alert and oriented x three, male in mild distress. HEENT: Head normocephalic, atraumatic, patient has shield over his right eye, left eye has extraocular motions intact and pupils are equal round and reactive, face symmetric, moist mucous membranes NECK: Supple, full range of motion CARDIOVASCULAR: Regular rate and rhythm without murmurs, rubs or gallops. No bruising or ecchymosis appreciated. RESPIRATORY: Breath sounds equal bilaterally, no wheezes rales or rhonchi. No tachypnea or accessory muscle use. ABDOMEN: Soft, nontender. Normoactive bowel sounds all 4 quadrants. No guarding or rebound, rigidity, no mass : No CVA tenderness EXTREMITIES: Normal range of motion, no clubbing or edema. Neurovascularly intact NEUROLOGICAL: Cranial nerves II through XII grossly intact. Moving all extremities SKIN: Warm, dry, no petechiae, no rashes or lesions. Initial Vital Signs Initial Vital Signs: Vital Signs Temperature 97.9 F 11/10/22 09:54 Pulse Rate 61 11/10/22 09:54 Respiratory Rate 24 11/10/22 09:54 Blood Pressure 112/66 11/10/22 09:54 Pulse Oximetry 98 11/10/22 09:54 Oxygen Delivery Method Room Air 11/10/22 09:54 Course Orders Ordered: ED Orders 11/10/22 11:55 Trop I [Troponin I] Stat 11/10/22 11:59 EKG-12 Lead Stat 11/10/22 13:53 CT chest w con Stat Discontinued Medications Sodium Chloride (Normal Saline 0.9%) 1,000 mls @ 1,000 mls/hr IV BOLUS ONE Stop: 11/10/22 12:58 Last Infusion: 11/10/22 13:30 Dose: 0 mls/hr Documented By: Admin: 11/10/22 12:00 Dose: 1,000 mls/hr Documented By: NR Vital Signs Vital signs: Vital Signs - 8 hr 11/10/22 11:15 11/10/22 11:15 11/10/22 11:30 Pulse Rate 54 L Pulse Rate [Orthostatic Lying] Pulse Rate [Orthostatic Sitting] Pulse Rate [Orthostatic Standing] Respiratory Rate 12 Blood Pressure 90/57 L 96/53 L Blood Pressure [Orthostatic Lying] Blood Pressure [Orthostatic Sitting] Blood Pressure [Orthostatic Standing] Pulse Oximetry 91 Oxygen Delivery Method 11/10/22 11:30 11/10/22 11:45 11/10/22 11:45 Pulse Rate 55 L 55 L Pulse Rate [Orthostatic Lying] Pulse Rate [Orthostatic Sitting] Pulse Rate [Orthostatic Standing] Respiratory Rate 11 L 12 Blood Pressure 78/49 L Blood Pressure [Orthostatic Lying] Blood Pressure [Orthostatic Sitting] Blood Pressure [Orthostatic Standing] Pulse Oximetry 95 92 Oxygen Delivery Method 11/10/22 11:48 11/10/22 11:48 11/10/22 12:00 Pulse Rate 55 L Pulse Rate [Orthostatic Lying] Pulse Rate [Orthostatic Sitting] Pulse Rate [Orthostatic Standing] Respiratory Rate 12 Blood Pressure 98/56 L 97/58 L Blood Pressure [Orthostatic Lying] Blood Pressure [Orthostatic Sitting] Blood Pressure [Orthostatic Standing] Pulse Oximetry 94 Oxygen Delivery Method 11/10/22 12:00 11/10/22 12:15 11/10/22 12:15 Pulse Rate 55 L 55 L Pulse Rate [Orthostatic Lying] Pulse Rate [Orthostatic Sitting] Pulse Rate [Orthostatic Standing] Respiratory Rate 13 13 Blood Pressure 101/64 Blood Pressure [Orthostatic Lying] Blood Pressure [Orthostatic Sitting] Blood Pressure [Orthostatic Standing] Pulse Oximetry 95 93 Oxygen Delivery Method Room Air 11/10/22 12:30 11/10/22 12:30 11/10/22 12:45 Pulse Rate 56 L Pulse Rate [Orthostatic Lying] Pulse Rate [Orthostatic Sitting] Pulse Rate [Orthostatic Standing] Respiratory Rate 14 Blood Pressure 105/66 109/66 Blood Pressure [Orthostatic Lying] Blood Pressure [Orthostatic Sitting] Blood Pressure [Orthostatic Standing] Pulse Oximetry 93 Oxygen Delivery Method 11/10/22 12:45 11/10/22 13:00 11/10/22 13:00 Pulse Rate 54 L 64 Pulse Rate [Orthostatic Lying] Pulse Rate [Orthostatic Sitting] Pulse Rate [Orthostatic Standing] Respiratory Rate 15 15 Blood Pressure 113/68 Blood Pressure [Orthostatic Lying] Blood Pressure [Orthostatic Sitting] Blood Pressure [Orthostatic Standing] Pulse Oximetry 95 96 Oxygen Delivery Method 11/10/22 13:15 11/10/22 13:16 11/10/22 13:16 Pulse Rate 55 L 55 L Pulse Rate [Orthostatic Lying] Pulse Rate [Orthostatic Sitting] Pulse Rate [Orthostatic Standing] Respiratory Rate 12 12 Blood Pressure 123/66 Blood Pressure [Orthostatic Lying] Blood Pressure [Orthostatic Sitting] Blood Pressure [Orthostatic Standing] Pulse Oximetry 97 96 Oxygen Delivery Method 11/10/22 13:30 11/10/22 13:30 11/10/22 13:45 Pulse Rate 54 L Pulse Rate [Orthostatic Lying] Pulse Rate [Orthostatic Sitting] Pulse Rate [Orthostatic Standing] Respiratory Rate 14 Blood Pressure 112/67 113/73 Blood Pressure [Orthostatic Lying] Blood Pressure [Orthostatic Sitting] Blood Pressure [Orthostatic Standing] Pulse Oximetry 96 Oxygen Delivery Method 11/10/22 13:45 11/10/22 14:00 11/10/22 14:00 Pulse Rate 58 L 56 L Pulse Rate [Orthostatic Lying] Pulse Rate [Orthostatic Sitting] Pulse Rate [Orthostatic Standing] Respiratory Rate 23 15 Blood Pressure 109/59 L Blood Pressure [Orthostatic Lying] Blood Pressure [Orthostatic Sitting] Blood Pressure [Orthostatic Standing] Pulse Oximetry 95 95 Oxygen Delivery Method Room Air 11/10/22 14:15 11/10/22 14:15 11/10/22 14:30 Pulse Rate 55 L 70 Pulse Rate [Orthostatic Lying] Pulse Rate [Orthostatic Sitting] Pulse Rate [Orthostatic Standing] Respiratory Rate 12 Blood Pressure 125/66 Blood Pressure [Orthostatic Lying] Blood Pressure [Orthostatic Sitting] Blood Pressure [Orthostatic Standing] Pulse Oximetry Oxygen Delivery Method 11/10/22 14:42 11/10/22 14:42 11/10/22 14:45 Pulse Rate 58 L Pulse Rate [Orthostatic Lying] Pulse Rate [Orthostatic Sitting] Pulse Rate [Orthostatic Standing] Respiratory Rate 13 Blood Pressure 128/72 113/65 Blood Pressure [Orthostatic Lying] Blood Pressure [Orthostatic Sitting] Blood Pressure [Orthostatic Standing] Pulse Oximetry 97 Oxygen Delivery Method 11/10/22 14:45 11/10/22 15:00 11/10/22 15:00 Pulse Rate 55 L 59 L Pulse Rate [Orthostatic Lying] Pulse Rate [Orthostatic Sitting] Pulse Rate [Orthostatic Standing] Respiratory Rate 13 24 Blood Pressure 120/73 Blood Pressure [Orthostatic Lying] Blood Pressure [Orthostatic Sitting] Blood Pressure [Orthostatic Standing] Pulse Oximetry 97 96 Oxygen Delivery Method Room Air 11/10/22 15:15 11/10/22 15:15 11/10/22 15:30 Pulse Rate 53 L Pulse Rate [Orthostatic Lying] Pulse Rate [Orthostatic Sitting] Pulse Rate [Orthostatic Standing] Respiratory Rate 14 Blood Pressure 122/70 116/68 Blood Pressure [Orthostatic Lying] Blood Pressure [Orthostatic Sitting] Blood Pressure [Orthostatic Standing] Pulse Oximetry Oxygen Delivery Method 11/10/22 15:30 11/10/22 15:45 11/10/22 15:45 Pulse Rate 54 L 64 Pulse Rate [Orthostatic Lying] Pulse Rate [Orthostatic Sitting] Pulse Rate [Orthostatic Standing] Respiratory Rate 11 L Blood Pressure 121/89 Blood Pressure [Orthostatic Lying] Blood Pressure [Orthostatic Sitting] Blood Pressure [Orthostatic Standing] Pulse Oximetry Oxygen Delivery Method 11/10/22 16:00 11/10/22 16:00 11/10/22 16:15 Pulse Rate 54 L 57 L Pulse Rate [Orthostatic Lying] Pulse Rate [Orthostatic Sitting] Pulse Rate [Orthostatic Standing] Respiratory Rate 12 12 Blood Pressure 106/63 Blood Pressure [Orthostatic Lying] Blood Pressure [Orthostatic Sitting] Blood Pressure [Orthostatic Standing] Pulse Oximetry 95 Oxygen Delivery Method 11/10/22 16:16 11/10/22 16:16 11/10/22 16:30 Pulse Rate 54 L Pulse Rate [Orthostatic Lying] Pulse Rate [Orthostatic Sitting] Pulse Rate [Orthostatic Standing] Respiratory Rate 16 Blood Pressure 117/69 98/64 Blood Pressure [Orthostatic Lying] Blood Pressure [Orthostatic Sitting] Blood Pressure [Orthostatic Standing] Pulse Oximetry 94 Oxygen Delivery Method 11/10/22 16:30 11/10/22 16:45 11/10/22 16:45 Pulse Rate 53 L 58 L Pulse Rate [Orthostatic Lying] Pulse Rate [Orthostatic Sitting] Pulse Rate [Orthostatic Standing] Respiratory Rate 12 13 Blood Pressure 101/63 Blood Pressure [Orthostatic Lying] Blood Pressure [Orthostatic Sitting] Blood Pressure [Orthostatic Standing] Pulse Oximetry 94 90 L Oxygen Delivery Method 11/10/22 17:12 11/10/22 17:12 11/10/22 17:00 Pulse Rate 73 51 L Pulse Rate [Orthostatic Lying] 54 L Pulse Rate [Orthostatic Sitting] 58 L Pulse Rate [Orthostatic Standing] 76 Respiratory Rate 17 Blood Pressure Blood Pressure [Orthostatic Lying] 119/67 Blood Pressure [Orthostatic Sitting] 126/76 Blood Pressure [Orthostatic Standing] 118/75 Pulse Oximetry 91 97 Oxygen Delivery Method 11/10/22 17:01 11/10/22 17:01 11/10/22 17:04 Pulse Rate 54 L Pulse Rate [Orthostatic Lying] Pulse Rate [Orthostatic Sitting] Pulse Rate [Orthostatic Standing] Respiratory Rate 22 Blood Pressure 130/64 119/67 Blood Pressure [Orthostatic Lying] Blood Pressure [Orthostatic Sitting] Blood Pressure [Orthostatic Standing] Pulse Oximetry 96 Oxygen Delivery Method 11/10/22 17:04 11/10/22 17:06 11/10/22 17:06 Pulse Rate 54 L 55 L Pulse Rate [Orthostatic Lying] Pulse Rate [Orthostatic Sitting] Pulse Rate [Orthostatic Standing] Respiratory Rate 18 14 Blood Pressure 126/76 Blood Pressure [Orthostatic Lying] Blood Pressure [Orthostatic Sitting] Blood Pressure [Orthostatic Standing] Pulse Oximetry 96 96 Oxygen Delivery Method 11/10/22 17:08 11/10/22 17:08 11/10/22 17:11 Pulse Rate 68 Pulse Rate [Orthostatic Lying] Pulse Rate [Orthostatic Sitting] Pulse Rate [Orthostatic Standing] Respiratory Rate Blood Pressure 118/75 132/72 Blood Pressure [Orthostatic Lying] Blood Pressure [Orthostatic Sitting] Blood Pressure [Orthostatic Standing] Pulse Oximetry 94 Oxygen Delivery Method 11/10/22 17:15 11/10/22 17:18 Pulse Rate Pulse Rate [Orthostatic Lying] Pulse Rate [Orthostatic Sitting] Pulse Rate [Orthostatic Standing] Respiratory Rate Blood Pressure 134/65 Blood Pressure [Orthostatic Lying] Blood Pressure [Orthostatic Sitting] Blood Pressure [Orthostatic Standing] Pulse Oximetry 92 Oxygen Delivery Method MDM - Chest Pain Lab Data 11/10/22 09:38 11/10/22 09:38 Labs: Lab Results 11/10/22 11/10/22 11/10/22 Range/Units 09:38 09:38 09:38 WBC 3.5 L (4.5-11.0) X10^3/uL RBC 3.67 L (4.5-5.9) X10^6/uL Hgb 12.0 L (13.5-17.5) g/dL Hct 35.6 L (41-53) % MCV 97.0 (80-100) fL MCH 32.6 (26-34) PG MCHC 33.6 (30-36) % RDW 14.8 (11.6-14.8) % Plt Count 172 (150-400) X10^3/uL Neut % (Auto) 37.1 L (50-75) % Lymph % (Auto) 47.4 H (25-40) % Mcdonough % (Auto) 11.3 (3-14) % Eos % (Auto) 3.4 (2-4) % Baso % (Auto) 0.8 (0-2) % Neut # (Auto) 1300 L (0964-4700) /uL Lymph # (Auto) 1700 (0057-0250) /uL Mcdonough # (Auto) 400 (0-900) /uL Eos # (Auto) 100 (0-450) /uL Baso # (Auto) 0 (0-100) /uL PT 13.4 H (10.1-12.7) SECONDS INR 1.2 (0.9-1.3) APTT 28 (26-36) SECONDS Sodium 136 L (137-145) mmol/L Potassium 4.0 (3.4-5.1) mmol/L Chloride 105 (98-107) mmol/L Carbon Dioxide 27 (22-32) mmol/L BUN 21 H (9-20) mg/dL Creatinine 0.83 (0.66-1.25) mg/dL Estimated GFR > 60 (>60) mL/min BUN/Creatinine Ratio 25.3 H (6-22) Glucose 101 (80-110) mg/dL Calcium 8.8 (8.4-10.2) mg/dL Magnesium 1.7 (1.6-2.3) mg/dL Total Bilirubin 0.4 (0.2-1.3) mg/dL AST 22 (17-59) IU/L ALT 15 (<50) IU/L Alkaline Phosphatase 78 (38-126) U/L Total Creatine Kinase 25 L (55-170) U/L CK-MB (CK-2) TNP CK-MB (CK-2) Rel Index TNP Troponin I < 0.012 (0.01-0.034) ng/mL Total Protein 6.2 L (6.3-8.2) g/dL Albumin 3.0 L (3.5-5.0) g/dL Globulin 3.2 (1.7-4.1) g/dL Albumin/Globulin Ratio 0.9 L (1.0-2.8) Lipase 33 (23-300) U/L 11/10/22 Range/Units 11:55 WBC (4.5-11.0) X10^3/uL RBC (4.5-5.9) X10^6/uL Hgb (13.5-17.5) g/dL Hct (41-53) % MCV (80-100) fL MCH (26-34) PG MCHC (30-36) % RDW (11.6-14.8) % Plt Count (150-400) X10^3/uL Neut % (Auto) (50-75) % Lymph % (Auto) (25-40) % Mcdonough % (Auto) (3-14) % Eos % (Auto) (2-4) % Baso % (Auto) (0-2) % Neut # (Auto) (7339-1303) /uL Lymph # (Auto) (6333-4704) /uL Mcdonough # (Auto) (0-900) /uL Eos # (Auto) (0-450) /uL Baso # (Auto) (0-100) /uL PT (10.1-12.7) SECONDS INR (0.9-1.3) APTT (26-36) SECONDS Sodium (137-145) mmol/L Potassium (3.4-5.1) mmol/L Chloride (98-107) mmol/L Carbon Dioxide (22-32) mmol/L BUN (9-20) mg/dL Creatinine (0.66-1.25) mg/dL Estimated GFR (>60) mL/min BUN/Creatinine Ratio (6-22) Glucose (80-110) mg/dL Calcium (8.4-10.2) mg/dL Magnesium (1.6-2.3) mg/dL Total Bilirubin (0.2-1.3) mg/dL AST (17-59) IU/L ALT (<50) IU/L Alkaline Phosphatase (38-126) U/L Total Creatine Kinase (55-170) U/L CK-MB (CK-2) CK-MB (CK-2) Rel Index Troponin I < 0.012 (0.01-0.034) ng/mL Total Protein (6.3-8.2) g/dL Albumin (3.5-5.0) g/dL Globulin (1.7-4.1) g/dL Albumin/Globulin Ratio (1.0-2.8) Lipase (23-300) U/L Imaging Data Chest x-ray: Radiologist's Impression: X-ray shows no acute cardiopulmonary change. ECG Data Attestation: I personally reviewed and interpreted this ECG as follows: Prior ECG tracings: available for review Interpretation: Sinus bradycardia first-degree AV block, patient does appear to have P waves with his QRS is. Rate of 54, P are 272, QRS of 86 and QTC of 424. No dropped beats. No acute ST changes appreciated. Sinus bradycardia rate of 57 MS 206, QRS 86 QTC [address] elevation or depression noted. No dynamic changes appreciated. MDM Narrative Medical decision making narrative: This is a 67 year old male with left-sided chest pain reproducible with movement, cough and sneeze who had a fall resulting in an orbital floor fracture and globe rupture of his eye week ago Thursday. Patient cardiac workup is overall negative. His chest x-ray does not show acute change troponins are negative x2 he has a little hypotensive today but states that is his normal. Bradycardic but also has many visits in the past no acute EKG changes appreciated. CT chest ordered as he had recent trauma. CT chest shows left-sided rib 2. Fracture, no other pneumo, hemo or other structural changes. This is the area that patient is tender consistent he did have an improvement in blood pressure after some fluids. He ambulated without issue. Patient defers anything stronger than Tylenol for pain given incentive spirometer and return precautions. Discharge Plan Departure Patient Disposition: Home Clinical Impression: Left-sided chest pain, Left rib fracture Instructions: DI for Rib Fracture Activity Restrictions/Additional Instructions: Follow-up with your physician for recheck, you have a left rib fracture at the 2nd rib consistent with your area of pain. I hope your eye continues to heal well. Please use inside was spirometer once hourly while awake daily. You may take Tylenol 1000 mg every 6 hours as needed for pain. Please return for new or worsening symptoms increasing shortness of breath, lightheadedness or passing out, coughing up blood, new swelling in her extremities or other new or concerning symptoms. Prescriptions: No Action multivitamin [Daily Multi-Vitamin] Tablet 1 tab PO QAM vitamin B complex Tablet 1 tab PO DAILY cholecalciferol (vitamin D3) 25 mcg (1,000 unit) capsule 4,000 unit PO DAILY omeprazole 20 mg capsule,delayed release(DR/EC) 40 mg PO BID trazodone 100 mg tablet 150 mg PO BEDTIME PRN (Reason: Insomnia) Qty: 60 5RF naltrexone 50 mg tablet 50 mg PO DAILY Qty: 30 3RF tamsulosin [Flomax] 0.4 mg capsule 0.8 mg PO QPM Qty: 0 metoprolol succinate 25 mg Tablet Extended Release 24 Hr 12.5 mg PO DAILY testosterone cypionate 200 mg/mL oil 200 mg IM Q4W Patient Comments: inject 1 milliliter intramuscularly every 2 weeks folic acid 1 mg Tablet 1 mg PO DAILY Qty: 120 0RF thiamine mononitrate (vit B1) 100 mg Tablet 100 mg PO DAILY Qty: 60 0RF melatonin 10 mg capsule 20 mg PO BEDTIME PRN (Reason: sleep) sucralfate 1 gram tablet 1 g PO BID alprazolam 0.25 mg tablet 0.25 mg PO PRN PRN (Reason: Anxiety) methocarbamol 750 mg tablet 750 mg PO PRN PRN (Reason: Pain (Scale Score 1-3)) Referrals: Maria Teresa Tlaley PA-C [Primary Care Provider] - Stand Alone Forms: Patient Portal/API
[2022-11-10 12:28] LABS: Troponin I < 0.012 ng/mL (0.01-0.034)
--- NOTE | 2022-11-10 13:53 | DI.CT.S_ITS ---
PROCEDURE: CT CHEST W CON INDICATIONS: chest pain, fall 1 week ago Thursday, left sided movement wors TECHNIQUE: After the administration of intravenous contrast, 5 mm thick sections acquired from the pulmonary apices to the posterior costophrenic angles. 1 mm axial lung, 5 mm thick coronal and sagittal reformats and 7 mm axial MIP were acquired. For radiation dose reduction, the following was used: automated exposure control, adjustment of mA and/or kV according to patient size. COMPARISON: None. FINDINGS: Image quality: Excellent. Lungs and pleura: No pneumothorax. No pulmonary parenchymal contusion. There are minor gravitational changes including interstitial thickening and trace bilateral pleural effusions. No significant nodules, lung masses, or consolidations. Mediastinum: Normal heart size without pericardial effusion or mediastinal hematoma. Trace coronary artery calcification. Great vessels are normal caliber. No periaortic hematoma. No mediastinal or hilar adenopathy. Normal esophagus with a small hiatal hernia. There are postsurgical changes at the GE junction of gastric bypass. Bones and chest wall: Spine demonstrates bridging osteophytes and ankylosis of ankylosing spondylitis anteriorly. Nondisplaced left anterior 2nd rib fracture is likely acute. There are mild angular deformities of left anterior 4th 6th, 8th and 9th anterolateral ribs. Nonunited left 11th rib fracture is chronic, previously seen. No sternal fracture. Several remote right anterior rib fractures. Pectoralis muscle overlying the left anterior 2nd rib appears thickened. Chest wall is otherwise normal without subcutaneous emphysema or hematoma. No adenopathy. Thyroid gland is normal CT appearance. Abdomen: Surgically absent gallbladder. Cystic changes in the left kidney. IMPRESSION: 1. Nondisplaced acute anterior left 2nd rib fracture with overlying soft tissue thickening. This rib was not included on the field of view of the prior weeks cervical spine CT. 2. No underlying pneumothorax or other lung injury. 3. Chronic bilateral healed rib fractures and one nonunited left rib fracture. Dictated by: Amanda Gimenez M.D. on 11/10/2022 at 15:00 Approved by: Amanda Gimenez M.D. on 11/10/2022 at 15:10
== END 2022-11-10 17:23 | disposition home or self-care (01) ==
PROVIDERS: Emergency Provider Emergency Medicine; PCP Student in an Organized Health Care Education/Training Program
DX: R07.9 Chest pain, unspecified (principal); S22.32XA Fracture of one rib, left side, initial encounter for closed fracture; R00.1 Bradycardia, unspecified; W19.XXXA Unspecified fall, initial encounter
CPT/HCPCS: 71045; 71260; 80053; 82550; 83690; 83735; 84484; 85025; 85610; 85730; 93005; 93010; 99284; Q9967

== ENCOUNTER → 2023-01-12 15:51 | Outpatient (CLI) | payer MEDICARE, OTHER, SELFPAY ==
--- NOTE | 2023-01-12 15:52 | DI.RAD.S_ITS ---
PROCEDURE: XR KNEE LT 3V INDICATIONS: Knee pain TECHNIQUE: 3 views of the knee were acquired. COMPARISON: [facility], CR, XR KNEE LT 3V, 07/24/2021, 15:17. FINDINGS: Bones: No acute fractures or dislocations. No suspicious bony lesions. Tricompartmental joint space narrowing is seen, at least moderate at the medial femorotibial compartment with small tricompartmental marginal osteophytes. Soft tissues: Moderate to large joint effusion. Ossification medial to the medial femorotibial joint is suspicious for an intra-articular loose body. IMPRESSION: 1. At least moderate tricompartmental osteoarthrosis. 2. Moderate to large joint effusion. 3. Suspected ossified intra-articular loose body along the medial femorotibial compartment. 4. No acute osseous abnormality. If the symptoms persist, consider cross sectional imaging such as MRI or CT for further assessment. Approved by: Saurav Luther M.D. on 01/12/2023 at 21:23
== END ==
PROVIDERS: PCP Student in an Organized Health Care Education/Training Program; Referring Provider Nurse Practitioner Family; Visit Provider Nurse Practitioner Family
DX: M17.12 Unilateral primary osteoarthritis, left knee (principal); M25.462 Effusion, left knee; M25.562 Pain in left knee
CPT/HCPCS: 73562

== ENCOUNTER 2023-09-25 23:48 | Emergency (ER) | payer MEDICARE, OTHER, SELFPAY ==
[2023-09-25 23:55] VITALS: BP 93/50; PULSE 74; RESP 18; O2SAT 99; BMI 33.4
--- NOTE | 2023-09-25 23:56 | DI.RAD.S_ITS ---
PROCEDURE: XR CLAVICLE LT INDICATIONS: GLF/INJURY/DEFORMITY TECHNIQUE: 2 views of the clavicle were acquired. COMPARISON: None. FINDINGS: Bones: No fractures in clavicle. Transverse fracture of the proximal humerus. Mild degenerative joint disease at the acromioclavicular joint. No suspicious bony lesions. Soft tissues: No suspicious soft tissue calcifications. IMPRESSION: No clavicular fracture. Please see separate x-ray shoulder report for left proximal humeral fracture. Dictated by: Yury Barros M.D. on 09/26/2023 at 2:10 Approved by: Yury Barros M.D. on 09/26/2023 at 2:11
--- NOTE | 2023-09-25 23:57 | ED_ITS ---
HPI - Skin/Abscess/Foreign Bdy General Chief complaint: Fall Stated complaint: Tripped and fell Time Seen by Provider: 09/25/23 23:51 History of Present Illness HPI narrative: 68yoM with PMH A fib, paroxysmal V-tach w/p PPM, alcoholism presents by EMS from home for GLF. Patient tripped over a power cord and fell. He was unable to get up for several hours, since medics had a hard time accessing his home. Patient did hit his head on the ground but denies losing consciousness. He does not take any blood thinners. Patient is complaining of left clavicle pain. Does endorse drinking alcohol tonight. Related Data Home Medications Medication Instructions Recorded Confirmed tamsulosin 0.4 mg capsule (Flomax) 0.8 mg PO QPM #0 caps 06/23/19 10/16/22 cholecalciferol (vitamin D3) 25 4,000 unit PO DAILY 10/11/19 10/16/22 mcg (1,000 unit) capsule multivitamin (Daily Multi-Vitamin 1 tab PO QAM 10/11/19 10/16/22 tablet) omeprazole 20 mg capsule,delayed 40 mg PO BID 10/11/19 10/16/22 release vitamin B complex 1 tab PO DAILY 10/11/19 10/16/22 testosterone cypionate 200 mg/mL 200 mg IM Q4W 01/03/21 10/16/22 intramuscular oil melatonin 10 mg capsule 20 mg PO BEDTIME PRN sleep 07/09/21 10/16/22 methocarbamol 750 mg tablet 750 mg PO PRN PRN Pain (Scale 09/11/21 10/16/22 Score 1-3) sucralfate 1 gram tablet 1 g PO BID 09/11/21 10/16/22 metoprolol succinate 25 mg 12.5 mg PO DAILY 02/20/22 10/16/22 tablet,extended release 24 hr Previous Rx's Medication Instructions Recorded folic acid 1 mg tablet 1 mg PO DAILY #120 tabs 05/12/21 thiamine mononitrate (vit B1) 100 100 mg PO DAILY #60 tabs 05/12/21 mg tablet naltrexone 50 mg tablet 50 mg PO DAILY #30 tabs 02/13/22 citalopram 10 mg tablet 10 mg PO DAILY #30 tabs 07/15/23 trazodone 100 mg tablet 150 mg (1.5 x 100 mg) PO BEDTIME 07/15/23 PRN Insomnia #60 tabs alprazolam 0.25 mg tablet 0.25 mg PO PRN PRN Anxiety #20 tabs 09/18/23 hydrocodone 5 mg-acetaminophen 325 1 tab PO Q8H PRN pain #14 tabs 09/26/23 mg tablet Allergies Allergy/AdvReac Type Severity Reaction Status Date / Time hydrochlorothiazide Allergy Severe Anaphylaxis Verified 11/10/22 09:59 [HYDROCHLOROTHIAZIDE] lisinopril [LISINOPRIL] Allergy Severe Anaphylaxis Verified 11/10/22 09:59 Review of Systems Review of Systems Narrative: Negative except as noted above Patient History Medical History Alcohol withdrawal Cirrhosis Hypertension Major depression Alcohol use disorder, severe, in early remission Alcoholism Surgical History S/P cholecystectomy H/O rhinoplasty 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 History of fasciotomy Family History Unknown Cancer Sister Alcohol dependence Mother Cardiac arrest Social History household members: none Smoking Status: Former smoker alcohol intake: current substance use type: does not use Smoking Status: Former smoker alcohol intake frequency: 3 or more drinks per day Alcohol type: hard liquor Substance Use Type: does not use Exam Initial Vital Signs Initial Vital Signs: Vital Signs Pulse Rate 74 09/25/23 23:55 Respiratory Rate 18 09/25/23 23:55 Blood Pressure 93/50 L 09/25/23 23:55 Pulse Oximetry 99 09/25/23 23:55 Oxygen Delivery Method Room Air 09/25/23 23:55 Const: Awake, alert, no acute distress, appears chronically unwell, older than stated age Cardiac: regular rate, regular rhythm RESP: unlabored, clear bilaterally, no wheezing MSK: Tenderness over left clavicular region, range of motion decreased due to pain. Radial pulses 2+ bilaterally, sensation and movement of wrists equal bilaterally Skin: Warm, Dry, intact, no rashes Neuro: AO x3, CN II-XII grossly intact, moves all extremities Course Orders Ordered: ED Orders 09/25/23 23:56 CT cervical spine wo con Stat CT facial bones wo con Stat CT head/brain wo con Stat XR clavicle LT Stat CK [Creatine Kinase] Stat CMP [Comprehensive Metabolic Panel] Stat Ethanol (ETOH) Stat MAG [Magnesium] Stat 09/26/23 00:26 Complete Blood Count MAN DIFF Stat 09/26/23 01:00 XR shoulder LT min 2V Stat Discontinued Medications Fentanyl (Fentanyl 100 Mcg/2 Ml Inj) 75 mcg IV NOW ONE Stop: 09/26/23 00:30 Last Admin: 09/26/23 01:09 Dose: 75 mcg Documented By: Fentanyl (Fentanyl 100 Mcg/2 Ml Inj) 50 mcg IV NOW ONE Stop: 09/26/23 02:22 Last Admin: 09/26/23 02:30 Dose: 50 mcg Documented By: Folic Acid (Folic Acid 1 Mg Tablet) 1 mg PO NOW ONE Stop: 09/25/23 23:57 Last Admin: 09/26/23 00:23 Dose: 1 mg Documented By: Thiamine HCl 200 mg/ Sodium (Chloride) 102 mls @ 408 mls/hr IV NOW ONE Stop: 09/25/23 23:57 Last Infusion: 09/26/23 02:30 Dose: Infused Documented By: Admin: 09/26/23 00:23 Dose: 408 mls/hr Documented By: Sodium Chloride (Normal Saline 0.9%) 1,000 mls @ 1,000 mls/hr IV BOLUS ONE Stop: 09/26/23 00:55 Last Admin: 09/26/23 00:00 Dose: Not Given Documented By: Vital Signs Vital signs: Vital Signs - 8 hr 09/25/23 23:55 09/26/23 00:26 09/26/23 00:30 Pulse Rate 74 74 72 Respiratory Rate 18 Blood Pressure 93/50 L Pulse Oximetry 99 95 97 Oxygen Delivery Method Room Air 09/26/23 00:30 09/26/23 01:14 09/26/23 01:30 Pulse Rate 75 77 Respiratory Rate Blood Pressure 86/50 L Pulse Oximetry 98 Oxygen Delivery Method 09/26/23 01:50 09/26/23 01:50 09/26/23 02:00 Pulse Rate 75 77 Respiratory Rate Blood Pressure 98/66 Pulse Oximetry 97 96 Oxygen Delivery Method 09/26/23 02:00 09/26/23 02:30 09/26/23 02:30 Pulse Rate 75 Respiratory Rate Blood Pressure 96/58 L 101/66 Pulse Oximetry Oxygen Delivery Method MDM - Skin/Abscess/Foreign Bdy Differential Diagnosis Differential diagnosis: Likely abscess of skin or subcutaneous tissue, viral exanthem and dermatophytosis Lab Data 09/26/23 00:26 09/26/23 00:26 Labs: Lab Results 09/26/23 Range/Units 00:26 WBC 5.9 (4.5-11.0) X10^3/uL RBC 3.87 L (4.5-5.9) X10^6/uL Hgb 13.1 L (13.5-17.5) g/dL Hct 39.1 L (41-53) % MCV 101.2 H (80-100) fL MCH 33.8 (26-34) PG MCHC 33.4 (30-36) % RDW 14.4 (11.6-14.8) % Plt Count 123 L (150-400) X10^3/uL Neut % (Auto) Cancelled Lymph % (Auto) Cancelled [place] % (Auto) Cancelled Eos % (Auto) Cancelled Baso % (Auto) Cancelled Neut # (Auto) Cancelled Lymph # (Auto) Cancelled [place] # (Auto) Cancelled Eos # (Auto) Cancelled Baso # (Auto) Cancelled Total Counted 100 Seg Neutrophils % 50.0 (38-70) % Lymphocytes % (Manual) 43.0 (25-45) % Monocytes % (Manual) 7.0 (2-11) % Neutrophils # (Manual) 2950 L (5388-8141) /uL RBC Morphology See below Macrocytosis 1+ H Sodium 139 (137-145) mmol/L Potassium 4.5 (3.4-5.1) mmol/L Chloride 110 H (98-107) mmol/L Carbon Dioxide 22 (22-32) mmol/L BUN 24 H (9-20) mg/dL Creatinine 0.82 (0.66-1.25) mg/dL Estimated GFR > 60 (>60) mL/min BUN/Creatinine Ratio 29.3 H (6-22) Glucose 104 (80-110) mg/dL Calcium 9.2 (8.4-10.2) mg/dL Magnesium 1.8 (1.6-2.3) mg/dL Total Bilirubin 0.4 (0.2-1.3) mg/dL AST 34 (17-59) IU/L ALT 16 (<50) IU/L Alkaline Phosphatase 64 (38-126) U/L Total Creatine Kinase 56 (55-170) U/L Total Protein 5.8 L (6.3-8.2) g/dL Albumin 3.1 L (3.5-5.0) g/dL Globulin 2.7 (1.7-4.1) g/dL Albumin/Globulin Ratio 1.1 (1.0-2.8) Ethyl Alcohol 227 H ( - 10) mg/dL Imaging Data CT - cervical spine: Radiologist's Impression: PROCEDURE: CT CERVICAL SPINE WO CON INDICATIONS: GLF/ETOH/HEAD INJURY TECHNIQUE: Noncontrast 3 mm thick sections acquired from the skull base to the T4 level. Sagittal and coronal reformats were then constructed. For radiation dose reduction, the following was used: automated exposure control, adjustment of mA and/or kV according to patient size. COMPARISON: [facility], CT, CT CERVICAL SPINE WO CON, 11/02/2022, 15:06. FINDINGS: Image quality: Excellent. Bones: No fractures or dislocations. Moderate degenerative disc and facet disease. Osteopenia. Visualized superior ribs are intact. Soft tissues: Prevertebral soft tissues are normal in thickness. No paravertebral hematomas. No apical pneumothoraces. IMPRESSION: 1. No displaced fracture or traumatic subluxation. 2. Moderate spondylitic changes. Dictated by: Yury Barros M.D. on 09/26/2023 at 2:22 Approved by: Yury Barros M.D. on 09/26/2023 at 2:24 CT scan - head: Radiologist's Impression: PROCEDURE: CT FACIAL BONES WO CON INDICATIONS: GLF/ETOH/FACIAL INJURY TECHNIQUE: Noncontrast 2.5 mm thick axial images acquired from the mandible through the frontal sinuses, with coronal and sagittal reformatting. For radiation dose reduction, the following was used: automated exposure control, adjustment of mA and/or kV according to patient size. COMPARISON: [facility], CT, CT FACIAL BONES WO CON, 11/02/2022, 15:06. FINDINGS: Image quality: Excellent. Bones and teeth: Bilateral nasal bone fractures with mild displacement. There is leftward nasal septum deviation. No fracture of the nasal septum. Old right orbital floor fracture. No new fracture. Right globe is ruptured, but unchanged. Sinus flores show no fracture or deformity. Visualized portions of the mandible demonstrate no fractures or subluxation. Zygomatic arches are intact. Pterygoid plates are intact. Visualized portions of the skull base and auditory canals are intact. Sinuses: Mild mucosal thickening in maxillary sinuses bilaterally.. Mastoid air cells are aerated. Soft tissues: No edema, masses, or fluid collections. No enlarged lymph nodes. No soft tissue lacerations or debris. Vascular: Visualized vascular structures appear normal in the absence of contrast. Bony vascular foramina and canals are intact. IMPRESSION: 1. Bilateral nasal bone fractures. 2. Old right orbital floor fracture and rupturing of the right globe. Dictated by: Yury Barros M.D. on 09/26/2023 at 2:17 Approved by: Yury Barros M.D. on 09/26/2023 at 2:21 PROCEDURE: CT HEAD/BRAIN WO CON INDICATIONS: GLF/ETOH/HEAD INJURY TECHNIQUE: Noncontrast 4.5 mm thick angled axial sections acquired from the foramen magnum to the vertex, with coronal and sagittal reformats. For radiation dose reduction, the following was used: automated exposure control, adjustment of mA and/or kV according to patient size. COMPARISON: [facility], CT, CT HEAD/BRAIN WO CON, 11/02/2022, 15:06. FINDINGS: Image quality: Diagnostic. CSF spaces: Basal cisterns are patent. No extra-axial fluid collections. The ventricles are symmetric in size and shape. Brain: No intracranial bleeds or masses. There is cerebral volume loss for age, with resultant ventricular and sulcal prominence. There are periventricular and deep white matter chronic small vessel ischemic changes. There is intracranial internal carotid artery atherosclerosis. Skull and face: Calvarium and visualized facial bones appear intact, without suspicious lesions. Sinuses: Mild right maxillary sinus mucosal thickening. The mastoids are clear. IMPRESSION: 1. No acute intracranial abnormalities. 2. Cerebral volume loss and chronic microvascular ischemic changes. Dictated by: Yury Barros M.D. on 09/26/2023 at 2:15 Approved by: Yury Barros M.D. on 09/26/2023 at 2:17 Extremity x-ray #1: Radiologist's Impression: PROCEDURE: XR SHOULDER LT MIN 2V INDICATIONS: GLF, probable fx TECHNIQUE: 2 views of the shoulder were acquired. COMPARISON: [facility], CR, XR CHEST 2 VIEWS, 08/31/2023, 12:31. FINDINGS: Suboptimal examination. The left shoulder is partially obscured by the cardiac pacemaker. Bones: Transverse fracture with displacement, angulation and overriding fracture fragments. involving the humeral neck and proximal humeral shaft. Osteopenia. No suspicious bony lesions. Visualized ribs appear intact. Soft tissues: No suspicious soft tissue calcifications. IMPRESSION: 1. Transverse fracture of the proximal humerus. Dictated by: Yury Barros M.D. on 09/26/2023 at 2:07 Approved by: Yury Barros M.D. on 09/26/2023 at 2:09 MDM Narrative Medical decision making narrative: Mechanical trip and fall. Head injury noted. There is some dried blood on the patient's face without obvious laceration or injury. 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 Mildly hypotensive on arrival, patient is asymptomatic, complaining only of left shoulder pain. Thiamine, folic acid, IV fluids, pain medications ordered Laboratory work is reviewed, no acute abnormalities identified. CK is not elevated. CT head, c-spine, and facial bones significant for nasal bone fractures, no other acute pathology. X-ray of the clavicle shows no fracture, however it was noted that patient has a marked deformity of his left humerus. Patient is neurovascularly intact with palpable pulses, intact sensation, flexion and extension of wrists equal bilaterally. Patient placed in a sling, he and his partner at bedside were informed of all lab and imaging findings. Patient able to ambulate to and from the bathroom with minimal assistance. Patient was counseled on the importance of alcohol cessation as well as orthopedic follow up. Patient's partner Radha states that she is a patient at [facility] and she will call her ortho doctor for a follow up appointment. Pain medication sent to pharmacy of choice. ED return precautions discussed at bedside. Patient expressed understanding of the plan and is in agreement at this time. All questions answered at the time of discharge. Discharge Plan Departure Patient Disposition: Home Clinical Impression: Fracture, humerus, Alcohol intoxication, Fracture of nasal bone Instructions: DI for Nose Fracture, DI for Shoulder Fracture Activity Restrictions/Additional Instructions: You have a fracture of your humerus and of your nasal bones. Please follow up with Orthopedic surgery for the humerus fracture, you may follow up with plastic surgery or ear nose and throat if you would like your nasal bone fracture fixed at a later date. Take the prescribed medications, but do not take them with alcohol or before operating heavy machinery. They also may cause constipation so take pain medications with the stool softener Prescriptions: New hydrocodone-acetaminophen 5-325 mg tablet 1 tab PO Q8H PRN (Reason: pain) Qty: 14 0RF No Action multivitamin [Daily Multi-Vitamin] Tablet 1 tab PO QAM vitamin B complex Tablet 1 tab PO DAILY cholecalciferol (vitamin D3) 25 mcg (1,000 unit) capsule 4,000 unit PO DAILY omeprazole 20 mg capsule,delayed release(DR/EC) 40 mg PO BID naltrexone 50 mg tablet 50 mg PO DAILY Qty: 30 3RF citalopram 10 mg tablet 10 mg PO DAILY Qty: 30 3RF trazodone 100 mg tablet 150 mg PO BEDTIME PRN (Reason: Insomnia) Qty: 60 2RF tamsulosin [Flomax] 0.4 mg capsule 0.8 mg PO QPM Qty: 0 alprazolam 0.25 mg tablet 0.25 mg PO PRN PRN (Reason: Anxiety) Qty: 20 0RF metoprolol succinate 25 mg Tablet Extended Release 24 Hr 12.5 mg PO DAILY testosterone cypionate 200 mg/mL oil 200 mg IM Q4W Patient Comments: inject 1 milliliter intramuscularly every 2 weeks folic acid 1 mg Tablet 1 mg PO DAILY Qty: 120 0RF thiamine mononitrate (vit B1) 100 mg Tablet 100 mg PO DAILY Qty: 60 0RF melatonin 10 mg capsule 20 mg PO BEDTIME PRN (Reason: sleep) sucralfate 1 gram tablet 1 g PO BID methocarbamol 750 mg tablet 750 mg PO PRN PRN (Reason: Pain (Scale Score 1-3)) Referrals: Maria Teresa Talley PA-C [Primary Care Provider] - Angelique Colindres MD [Physician] - Stand Alone Forms: Patient Portal/API
[2023-09-26] VITALS (7 sets, daily range): BP systolic 86–101; BP diastolic 50–66; PULSE 72–77; O2SAT 95–98
--- NOTE | 2023-09-26 00:09 | PC.NURSE ---
Pt is a chronic alcoholic and states that tonight drank about 200 ml alcohol. Recent use has been daily, then switched to fridays for surgical procedure (ICD) placement 1 month ago at [facility] by Dr. Haynes. Pt is legally blind in his right eye.
[2023-09-26] MEDS: THIAMINE 200 MG in SODIUM CHLORIDE 0.9% 100 ML 408 MG IV (00:23)
[2023-09-26] MEDS: FOLIC ACID 1 MG TABLET PO (00:23)
[2023-09-26 00:54] LABS: Alanine Aminotransferase 16 IU/L (<50); Albumin 3.1 g/dL (3.5-5.0); Albumin Globulin Ratio 1.1 (1.0-2.8); Alkaline Phosphatase 64 U/L (38-126); Aspartate Aminotransferase 34 IU/L (17-59); BUN Creatinine Ratio 29.3 (6-22); Bilirubin Total 0.4 mg/dL (0.2-1.3); Blood Urea Nitrogen 24 mg/dL (9-20); Calcium 9.2 mg/dL (8.4-10.2); Carbon Dioxide 22 mmol/L (22-32); Chloride 110 mmol/L (98-107); Creatine Kinase 56 U/L (55-170); Estimated Glomerular Filt Rate > 60 mL/min (>60); Ethanol (ETOH) 227 mg/dL; Globulin 2.7 g/dL (1.7-4.1); Glucose 104 mg/dL (80-110); HEMOLYSIS 17 (0-50); Magnesium 1.8 mg/dL (1.6-2.3); Potassium 4.5 mmol/L (3.4-5.1); Sodium 139 mmol/L (137-145); Total Protein 5.8 g/dL (6.3-8.2)
[2023-09-26 00:56] LABS: Hematocrit 39.1 % (41-53); Hemoglobin 13.1 g/dL (13.5-17.5); Mean Corpuscular HGB Conc 33.4 % (30-36); Mean Corpuscular Hemoglobin 33.8 PG (26-34); Mean Corpuscular Volume 101.2 fL (80-100); Platelet Count 123 X10^3/uL (150-400); Red Blood Cell Count 3.87 X10^6/uL (4.5-5.9); Red Cell Distribution Width 14.4 % (11.6-14.8); White Blood Cell Count 5.9 X10^3/uL (4.5-11.0)
--- NOTE | 2023-09-26 01:00 | DI.RAD.S_ITS ---
PROCEDURE: XR SHOULDER LT MIN 2V INDICATIONS: GLF, probable fx TECHNIQUE: 2 views of the shoulder were acquired. COMPARISON: [facility], CR, XR CHEST 2 VIEWS, 08/31/2023, 12:31. FINDINGS: Suboptimal examination. The left shoulder is partially obscured by the cardiac pacemaker. Bones: Transverse fracture with displacement, angulation and overriding fracture fragments. involving the humeral neck and proximal humeral shaft. Osteopenia. No suspicious bony lesions. Visualized ribs appear intact. Soft tissues: No suspicious soft tissue calcifications. IMPRESSION: 1. Transverse fracture of the proximal humerus. Dictated by: Yury Barros M.D. on 09/26/2023 at 2:07 Approved by: Yury Barros M.D. on 09/26/2023 at 2:09
[2023-09-26 01:07] LABS: Macrocytosis 1+; Neutrophils Absolute Manual 2950 /uL (3000-5900); Total Cells Counted 100
[2023-09-26] MEDS: fentaNYL 100 MCG/2 ML INJ 75 MCG IV (01:09)
[2023-09-26] MEDS: fentaNYL 100 MCG/2 ML INJ 50 MCG IV (02:30)
== END 2023-09-26 03:47 | disposition home or self-care (01) ==
PROVIDERS: Emergency Provider Emergency Medicine; PCP Student in an Organized Health Care Education/Training Program
DX: S42.202A Unspecified fracture of upper end of left humerus, initial encounter for closed fracture (principal); S02.2XXA Fracture of nasal bones, initial encounter for closed fracture; W01.0XXA Fall on same level from slipping, tripping and stumbling without subsequent striking against object, initial encounter
CPT/HCPCS: 70450; 70486; 72125; 73000; 73030; 80053; 80320; 82550; 83735; 85025; 96365; 96366; 96375; 96376; 99284; J3010